=== PATIENT | male | born 1970 | race Two or more races ===

== ENCOUNTER 2020-06-27 08:40 | Outpatient (REF) | payer OTHER, SELFPAY ==
[2020-06-27 10:44] LABS: Alanine Aminotransferase 264 U/L (0-40); Alkaline Phosphatase 134 U/L (39-117); Anion Gap 13 (12-20); Aspartate Amino Transferase 232 U/L (5-37); Bilirubin Total 1.6 mg/dL (0.0-1.0); Blood Urea Nitrogen 13 mg/dL (9-16); Calcium 8.6 mg/dL (8.4-10.2); Carbon Dioxide 23 mmol/L (22-29); Chloride 106 mmol/L (96-108); Cholesterol 192 mg/dL; Estimated Glomerular Filt Rate > 60; Glucose Fasting 111 mg/dL (60-99); HDL Cholesterol 46 mg/dL; LDL Cholesterol Calculated 125 mg/dl; Sodium 138 mmol/L (135-145); Total Protein 7.2 g/dL (6.5-8.0); Triglycerides 106 mg/dL
== END 2020-06-27 08:41 | disposition home or self-care (01) ==
LOC: HO.LAB 08:40
PROVIDERS: PCP Internal Medicine; Visit Provider Internal Medicine
DX: E11.9 Type 2 diabetes mellitus without complications (principal); E78.00 Pure hypercholesterolemia, unspecified
CPT/HCPCS: 36415; 80053; 80061

== ENCOUNTER → 2020-07-12 12:24 | Outpatient (BNVA) | payer OTHER, SELFPAY | PROVIDERS: Visit Provider Orthopaedic Surgery | DX: Z76.89 Persons encountering health services in other specified circumstances (principal) | CPT/HCPCS: 20610; 99212; J1040 ==

== ENCOUNTER 2020-07-18 09:25 | Outpatient (REF) | payer OTHER, SELFPAY ==
--- NOTE | 2020-07-18 09:30 | XR_ITS ---
EXAMINATION: BILATERAL KNEE X-RAY CLINICAL INFORMATION: Pain COMPARISON: Previous right knee x-ray September 2019 TECHNIQUE: 4 views of each knee FINDINGS: Right: Bone alignment is normal. No fracture or dislocation is seen. There is joint space narrowing at the medial femoral tibial joint. There is joint space narrowing and osteophyte formation at the patellofemoral joint. There is a small osteophyte at the quadriceps tendon insertion to the patella. There is a small joint effusion. Left: Bone alignment is normal. No fracture or dislocation is seen. There is heterogeneous decreased attenuation seen in the lateral tibial plateau, lateral femoral condyle and question patella. This may represent demineralization/osteopenia. There is joint space narrowing and osteophyte formation at the patellofemoral and femoral tibial joints. There is osteophyte at the quadriceps tendon insertion to the patella. There is a small joint effusion. XR/XR knee RT 3V IMPRESSION: Bilateral arthritis, left greater than right, and small joint effusions. Heterogeneous decreased attenuation in the lateral left knee, question representing osteopenia.
--- NOTE | 2020-07-18 09:30 | US_ITS ---
EXAMINATION: US COMPLETE ABDOMEN WITH LIVER ELASTOGRAPHY CLINICAL INFORMATION: Elevated liver function tests COMPARISON: Previous abdominal ultrasound most recent March 2019 TECHNIQUE: Real-time imaging of the abdominal viscera. Noninvasive ultrasound liver fibrosis assessment is performed using Edie ElastPQ point quantification shear wave elastography (pSWE) with a 5 MHz transducer. Multiple elastography samples are obtained. FINDINGS: PANCREAS: Normal. The visualized pancreatic head and body are normal in appearance. The remainder of the pancreas is obscured from visualization by the overlying bowel gas. ABDOMINAL AORTA: The proximal, middle, and distal aortic segments are normal in caliber. INFERIOR VENA CAVA: Visualized portions are normal. LIVER: Liver echotexture is increased. The liver demonstrates normal size and contour. No focal lesion or intrahepatic biliary duct dilatation. The right lobe measures 14 cm in length. The left lobe measures 14 cm in length. The main portal vein is patent with appropriate hepatopedal flow Shear wave elastography provides a median stiffness of 1.4 m/s (reference: normal median stiffness is 0.81 - 1.22 m/s). The IQR/median stiffness to assess sampling precision is 0.2 (reference: optimal IQR/median stiffness is under 0.3). GALLBLADDER: The gallbladder is upper normal in size. There is ring down artifact suggestive of mild adenomyomatosis of the gallbladder wall. No gallstones are seen. COMMON BILE DUCT: Normal in caliber measuring 0.6 cm in diameter. RIGHT KIDNEY: Normal. No hydronephrosis. No renal calculi or focal parenchymal lesions. The kidney measures 12.4 cm in maximum dimension. LEFT KIDNEY: There is a small 4 x 5 x 5 mm cyst in the lower pole. No hydronephrosis. No renal calculi or focal parenchymal lesions. The kidney measures 12.5 cm in maximum dimension. SPLEEN: The spleen is slightly enlarged. The spleen measures 13.7 cm in maximum dimension. FREE FLUID: None. US/US abdomen comp w elastography IMPRESSION: 1. Impression: Echogenic liver probably representing fatty infiltration. Mild adenomyomatosis of the gallbladder wall. Small left renal cyst. Slightly enlarged spleen. 2. Elastography: Metavir score F2 to F3 suggestive of [id number] increased risk of developing liver fibrosis.
--- NOTE | 2020-07-18 09:30 | XR_ITS ---
EXAMINATION: BILATERAL KNEE X-RAY CLINICAL INFORMATION: Pain COMPARISON: Previous right knee x-ray September 2019 TECHNIQUE: 4 views of each knee FINDINGS: Right: Bone alignment is normal. No fracture or dislocation is seen. There is joint space narrowing at the medial femoral tibial joint. There is joint space narrowing and osteophyte formation at the patellofemoral joint. There is a small osteophyte at the quadriceps tendon insertion to the patella. There is a small joint effusion. Left: Bone alignment is normal. No fracture or dislocation is seen. There is heterogeneous decreased attenuation seen in the lateral tibial plateau, lateral femoral condyle and question patella. This may represent demineralization/osteopenia. There is joint space narrowing and osteophyte formation at the patellofemoral and femoral tibial joints. There is osteophyte at the quadriceps tendon insertion to the patella. There is a small joint effusion. XR/XR knee LT 3V IMPRESSION: Bilateral arthritis, left greater than right, and small joint effusions. Heterogeneous decreased attenuation in the lateral left knee, question representing osteopenia.
== END 2020-07-18 09:26 | disposition home or self-care (01) ==
LOC: HO.US 09:25
PROVIDERS: Visit Provider Internal Medicine
DX: R74.01 Elevation of levels of liver transaminase levels (principal); G89.29 Other chronic pain; M25.561 Pain in right knee; M25.562 Pain in left knee
CPT/HCPCS: 73562; 76705; 76981

== ENCOUNTER → 2020-08-31 15:04 | Outpatient (BNVA) | payer OTHER, SELFPAY | PROVIDERS: PCP Internal Medicine; Visit Provider Physician Assistant | DX: R74.01 Elevation of levels of liver transaminase levels (principal); K21.9 Gastro-esophageal reflux disease without esophagitis | CPT/HCPCS: 99212 ==

== ENCOUNTER 2020-12-01 07:49 | Outpatient (REF) | payer OTHER, SELFPAY ==
[2020-12-01 08:46] LABS: MANUAL DIFF FLAG NO
[2020-12-01 08:51] LABS: Basophils Percent Auto 0.4 % (0-2); Eosinophils Absolute Auto 0.2 X10*3/uL (0.0-0.4); Eosinophils Percent Auto 4.5 % (0-4); Hematocrit 40.1 % (42-52); Hemoglobin 13.3 g/dl (14.0-18.0); Imm Gran Abs Auto 0.01 X10*3/uL (0.00-0.03); Imm Gran Pct Auto 0.2 % (0.0-0.4); Lymphocytes Absolute Auto 1.7 X10*3/uL (1.2-4.9); Lymphocytes Percent Auto 36.3 % (20-40); Mean Corpuscular HGB Conc 33.2 g/dl (31.0-36.0); Mean Corpuscular Hemoglobin 30.5 pg (27.0-33.0); Mean Platelet Volume 10.1 fL (9.4-12.4); Monocytes Absolute Auto 0.5 X10*3/uL (0.1-1.2); Neutrophils Absolute Auto 2.3 X10*3/uL (2.0-8.3); Neutrophils Percent Auto 48.6 % (45-73); Platelet Count 134 X10*3/uL (160-400); Red Blood Count 4.36 X10*6/uL (4.60-5.80); Red Cell Distribution Width 12.5 % (11.0-16.0); White Blood Count 4.7 X10*3/uL (4.8-10.8)
[2020-12-01 09:14] LABS: Estimated Average Glucose 157 mg/dL; Hemoglobin A1c % 7.1 %
[2020-12-01 09:18] LABS: Alanine Aminotransferase 289 U/L (0-40); Albumin Level 3.6 g/dL (3.5-5.0); Alkaline Phosphatase 131 U/L (39-117); Anion Gap 13 (12-20); Aspartate Amino Transferase 235 U/L (5-37); Bilirubin Total 1.2 mg/dL (0.0-1.0); Blood Urea Nitrogen 12 mg/dL (9-16); Calcium 8.6 mg/dL (8.4-10.2); Carbon Dioxide 23 mmol/L (22-29); Chloride 106 mmol/L (96-108); Cholesterol 161 mg/dL; Estimated Glomerular Filt Rate > 60; Glucose Fasting 154 mg/dL (60-99); HDL Cholesterol 35 mg/dL; LDL Cholesterol Calculated 104 mg/dl; Potassium 3.9 mmol/L (3.3-5.1); Sodium 138 mmol/L (135-145); Total Protein 6.3 g/dL (6.5-8.0); Triglycerides 114 mg/dL
[2020-12-01 09:35] LABS: Creatinine Urine 183.31 mg/dL; Microalbum/Creatinine Ratio Ur 3.8 ug/mg cr
[2020-12-02 08:54] LABS: HBS Num1 0.05 mIU/mL (0-7.99); Hepatitis A Antibody IgM 0.35 Index (0-0.79); ~Hepatitis A Antibody IgM Nonreactive (Nonreactive); ~Hepatitis B Surface Antibody NONREACTIVE (Nonreactive)
[2020-12-02 09:05] LABS: HBc Num1 10.14 S/CO (0.00-0.79); HBsAGNum1 0.16 S/CO (0.00-0.99); Hepatitis B Surface Antigen Negative (Negative); ~HepC Num1 15.89 S/CO (0.00-0.79); ~Hepatitis C Antibody Reactive (Nonreactive)
[2020-12-02 10:15] LABS: HBc Num2 10.27 S/CO; HBc Num3 10.32 S/CO; Hepatitis B Core Antibody Reactive (Nonreactive)
[2020-12-03 14:31] LABS: HCV RNA PCR Qn 2220000 IU/mL (NOT DETECTED); HCV RNA PCR Qn 6.35 Log IU/mL (NOT DETECTED)
[2020-12-03 18:12] LABS: Hepatitis B Core Antibody IgM NON-REACTIVE (NON-REACTIVE)
[2020-12-04 23:46] LABS: Anti Nuclear Antibody Screen NEGATIVE (NEGATIVE)
[2020-12-05 13:52] LABS: Vitamin D 25-OH, D2 <4 ng/mL; Vitamin D 25-OH, D3 16 ng/mL; Vitamin D 25-OH, Total 16 ng/mL (30-100)
[2020-12-14 14:27] LABS: HCV Genotype LiPA 1a
== END 2020-12-01 07:50 | disposition home or self-care (01) ==
LOC: HO.LAB 07:49
PROVIDERS: Absent Provider Internal Medicine; PCP Internal Medicine; Visit Provider Physician Assistant
DX: R10.11 Right upper quadrant pain (principal); R74.01 Elevation of levels of liver transaminase levels; R78.89 Finding of other specified substances, not normally found in blood; B19.20 Unspecified viral hepatitis C without hepatic coma; E11.9 Type 2 diabetes mellitus without complications; E78.5 Hyperlipidemia, unspecified; E55.9 Vitamin D deficiency, unspecified
CPT/HCPCS: 36415; 80053; 80061; 82043; 82306; 83036; 85025; 86038; 86039; 86704; 86705; 86706; 86709; 86803; 87340; 87522; 87902

== ENCOUNTER → 2021-01-11 13:45 | Outpatient (BNVA) | payer OTHER, SELFPAY | PROVIDERS: Visit Provider Physician Assistant | CPT/HCPCS: Q3014 ==

== ENCOUNTER 2021-03-23 08:23 | Outpatient (REF) | payer OTHER, SELFPAY ==
--- NOTE | ~2021-03-23 | XR_ITS ---
EXAMINATION: XR KNEE AP STANDING CLINICAL INFORMATION: Knee pain. COMPARISON: Right knee 07/18/2020 TECHNIQUE: AP bilateral standing view of the knees was obtained. FINDINGS: There is significant reduction in medial compartment joint space both knees with mild periarticular spurring medial compartment right knee. Mild reduction in the lateral compartment joint space both knees is noted, as well. No bony erosive changes. The soft tissues are normal. XR/XR knee standing BI IMPRESSION: Moderate degenerative changes medial compartment both knees with mild periarticular spurring medial compartment right knee.
== END 2021-03-23 08:24 | disposition home or self-care (01) ==
LOC: HO.HOSX 08:23
PROVIDERS: Visit Provider Orthopaedic Surgery
DX: M17.0 Bilateral primary osteoarthritis of knee (principal); E11.9 Type 2 diabetes mellitus without complications; B19.20 Unspecified viral hepatitis C without hepatic coma
CPT/HCPCS: 20610; 73565; 99212; J1100

== ENCOUNTER → 2021-07-27 12:39 | Outpatient (BNVA) | payer OTHER, MEDICAID, SELFPAY | PROVIDERS: PCP Internal Medicine; Visit Provider Orthopaedic Surgery | DX: M17.0 Bilateral primary osteoarthritis of knee (principal); E11.9 Type 2 diabetes mellitus without complications | CPT/HCPCS: 20610; 99212; J1100 ==

== ENCOUNTER → 2021-12-01 11:08 | Outpatient (BNVA) | payer OTHER, SELFPAY | PROVIDERS: PCP Internal Medicine; Visit Provider Orthopaedic Surgery | DX: M17.0 Bilateral primary osteoarthritis of knee (principal); E11.9 Type 2 diabetes mellitus without complications | CPT/HCPCS: 20610; 99212; J1100 ==

== ENCOUNTER → 2022-02-01 14:52 | Outpatient (BNVA) | payer OTHER, SELFPAY | PROVIDERS: PCP Internal Medicine; Visit Provider Orthopaedic Surgery | DX: M17.0 Bilateral primary osteoarthritis of knee (principal); E11.9 Type 2 diabetes mellitus without complications | CPT/HCPCS: 99212 ==

== ENCOUNTER → 2022-03-01 12:22 | Outpatient (BNVA) | payer OTHER, SELFPAY | PROVIDERS: PCP Internal Medicine; Visit Provider Orthopaedic Surgery | DX: M17.0 Bilateral primary osteoarthritis of knee (principal) | CPT/HCPCS: 20610; 99212; J7318 ==

== ENCOUNTER → 2022-04-16 07:20 | Outpatient (BNVA) | payer OTHER, SELFPAY | PROVIDERS: PCP Internal Medicine; Referring Provider Internal Medicine; Visit Provider Physician Assistant | DX: B19.20 Unspecified viral hepatitis C without hepatic coma (principal); K21.9 Gastro-esophageal reflux disease without esophagitis | CPT/HCPCS: 99212 ==

== ENCOUNTER 2022-04-28 07:35 | Outpatient (REF) | payer OTHER, SELFPAY ==
[2022-04-28 07:56] LABS: MANUAL DIFF FLAG NO
[2022-04-28 08:16] LABS: Basophils Percent Auto 0.4 % (0-2); Eosinophils Absolute Auto 0.2 X10*3/uL (0.0-0.4); Eosinophils Percent Auto 3.7 % (0-4); Hematocrit 37.5 % (42.0-52.0); Imm Gran Abs Auto 0.01 X10*3/uL (0.00-0.03); Imm Gran Pct Auto 0.2 % (0.0-0.4); Lymphocytes Absolute Auto 1.9 X10*3/uL (1.2-4.9); Lymphocytes Percent Auto 37.5 % (20-40); Mean Corpuscular HGB Conc 34.7 g/dl (31.0-36.0); Mean Corpuscular Volume 89.3 fL (80.0-98.0); Mean Platelet Volume 9.9 fL (9.4-12.4); Monocytes Absolute Auto 0.4 X10*3/uL (0.1-1.2); Monocytes Percent Auto 7.5 % (2-11); Neutrophils Absolute Auto 2.5 x10*3/uL (2.0-8.3); Neutrophils Percent Auto 50.7 % (45-73); Platelet Count 105 X10*3/uL (160-400); Red Cell Distribution Width 12.8 % (11.0-16.0); White Blood Count 4.9 X10*3/uL (4.8-10.8)
[2022-04-28 08:49] LABS: Alanine Aminotransferase 99 U/L (0-40); Albumin Level 3.6 g/dL (3.5-5.0); Alkaline Phosphatase 156 U/L (39-117); Anion Gap 14 (12-20); Aspartate Amino Transferase 100 U/L (5-37); Bilirubin Direct 0.7 mg/dL (0.0-0.5); Bilirubin Total 1.2 mg/dL (0.0-1.0); Blood Urea Nitrogen 11 mg/dL (9-16); Calcium 8.7 mg/dL (8.4-10.2); Carbon Dioxide 22 mmol/L (22-29); Chloride 109 mmol/L (96-108); Cholesterol 167 mg/dL; Estimated Glomerular Filt Rate > 60; Glucose Fasting 137 mg/dL (60-99); HDL Cholesterol 37 mg/dL; Iron 70 mcg/dL (45-160); LDL Cholesterol Calculated 113 mg/dl; Percent Iron Saturation 21 % (15-50); Potassium 3.9 mmol/L (3.3-5.1); Sodium 141 mmol/L (135-145); Total Iron Binding Capacity 341 mcg/dL (228-428); Total Protein 6.5 g/dL (6.5-8.0); Triglycerides 87 mg/dL; Unsaturated Iron Binding 271 ug/dL
[2022-04-28 09:08] LABS: Vitamin D 25-OH Total 13.7 ng/mL (>30)
[2022-04-28 09:12] LABS: Thyroid Stimulating Hormone 1.36 uIU/mL (0.32-4.0)
[2022-04-28 09:37] LABS: Creatinine Urine 137.33 mg/dL; Microalbum/Creatinine Ratio Ur 10.1 ug/mg cr
[2022-04-30 05:07] LABS: HBS Num1 0.12 mIU/mL (0-7.99); HIV AB/AG Nonreactive (Nonreactive); HIV Num 1 0.08 S/CO (0.00-0.99); ~Hepatitis B Surface Antibody NONREACTIVE (Nonreactive)
[2022-05-03 13:21] LABS: Vitamin D 25-OH, D2 <4 ng/mL; Vitamin D 25-OH, D3 16 ng/mL; Vitamin D 25-OH, Total 16 ng/mL (30-100)
[2022-05-03 14:16] LABS: HCV Log PCR 5.52 Log IU/mL (NOT DETECTED); HepC Viral Load 329000 IU/mL (NOT DETECTED)
[2022-05-04 16:57] LABS: Hepatitis C Genotype 1a
[2022-05-05 18:03] LABS: FIB-ALT 85 U/L (9-46); FIB-Alpha-2-Macroglobulin 269 mg/dL (106-279); FIB-Apolipoprotein A1 131 mg/dL (94-176); FIB-GGT 311 U/L (3-95); FIB-Haptoglobin 15 mg/dL (43-212); FIB-Total Bilirubin 0.9 mg/dL (0.2-1.2); Liver Fibrosis Score 0.91; Liver Fibrosis Stage F4; Nec Inflam Act Grade A3; Nec Inflam Act Score 0.72
== END 2022-04-28 07:36 | disposition home or self-care (01) ==
LOC: HO.LAB 07:35
PROVIDERS: Absent Provider Internal Medicine; PCP Internal Medicine; Visit Provider Physician Assistant
DX: Z11.4 Encounter for screening for human immunodeficiency virus [HIV] (principal); R10.11 Right upper quadrant pain; B19.20 Unspecified viral hepatitis C without hepatic coma; K59.09 Other constipation; K52.9 Noninfective gastroenteritis and colitis, unspecified; R74.01 Elevation of levels of liver transaminase levels; D64.9 Anemia, unspecified; E11.9 Type 2 diabetes mellitus without complications; E78.5 Hyperlipidemia, unspecified; E55.9 Vitamin D deficiency, unspecified
CPT/HCPCS: 36415; 80053; 80061; 80076; 81596; 82043; 82306; 83540; 84443; 85025; 86706; 87389; 87522; 87902

== ENCOUNTER → 2022-04-30 08:12 | Outpatient (BNVA) | payer OTHER, SELFPAY | PROVIDERS: PCP Internal Medicine; Referring Provider Internal Medicine | DX: Z11.0 Encounter for screening for intestinal infectious diseases (principal) | CPT/HCPCS: 99211 ==

== ENCOUNTER 2022-04-30 16:20 | Outpatient (REF) | payer OTHER, SELFPAY ==
[2022-05-02 12:48] LABS: H Pylori Breath Test Negative (Negative)
== END 2022-04-30 16:21 | disposition home or self-care (01) ==
LOC: HO.LNP 16:20
PROVIDERS: Visit Provider Physician Assistant
DX: A04.8 Other specified bacterial intestinal infections (principal)
CPT/HCPCS: 83013

== ENCOUNTER → 2022-05-14 09:58 | Outpatient (BNVA) | payer OTHER, SELFPAY | PROVIDERS: PCP Internal Medicine; Visit Provider Physician Assistant | DX: K21.9 Gastro-esophageal reflux disease without esophagitis (principal); B19.20 Unspecified viral hepatitis C without hepatic coma; R74.01 Elevation of levels of liver transaminase levels; D64.9 Anemia, unspecified | CPT/HCPCS: 99212 ==

== ENCOUNTER 2022-06-01 10:09 | Outpatient (REF) | payer OTHER, SELFPAY ==
--- NOTE | ~2022-06-01 | US_ITS ---
EXAMINATION: US ABDOMEN COMPLETE CLINICAL INFORMATION: Unspecified viral hepatitis C without hepatic coma. COMPARISON: Ultrasound abdomen complete dated 07/05/2016. CT abdomen and pelvis without contrast dated 09/08/2012. TECHNIQUE: Real-time imaging of the abdominal viscera. FINDINGS: PANCREAS: Obscured by bowel gas. ABDOMINAL AORTA: The proximal, mid, and distal segments are normal in caliber. INFERIOR VENA CAVA: Visualized portions are normal. LIVER: The liver is normal in size. The liver contour is normal. Coarse hepatic echotexture which can be seen in the setting of underlying liver disease. No focal hepatic lesion. There is no intrahepatic biliary duct dilatation seen. GALLBLADDER: Gallbladder is distended somewhat greater than expected. Negative sonographic Ortega sign. No without evidence of stones, sludge, polyps, or pericholecystic fluid. Question of a borderline gallbladder wall thickening which may be related to underlying liver disease. COMMON BILE DUCT: Normal in caliber measuring 0.6 cm in diameter. RIGHT KIDNEY: Possible trace right upper pole pelviectasis. No hydronephrosis. No renal calculi or focal parenchymal lesions. The kidney measures 12.0 cm in maximum dimension. LEFT KIDNEY: Normal. No hydronephrosis. No renal calculi or focal parenchymal lesions. The kidney measures 12.4 cm in maximum dimension. SPLEEN: Spleen is enlarged. The spleen measures 16.4 cm in maximum dimension. FREE FLUID: None. US/US abdomen complete IMPRESSION: Gallbladder is distended somewhat greater than expected however with no cholelithiasis or sonographic Ortega's tenderness. If patient has clinical symptoms, gallbladder hydrops could have this appearance however if patient is asymptomatic this may be related to the fasting state. Questionable borderline gallbladder wall thickening which may be related to underlying liver disease. Coarse hepatic echotexture which could be seen in the setting of underlying liver disease. No liver lesion. Possible trace right upper pole renal pelviectasis. Splenomegaly.
== END 2022-06-01 10:10 | disposition home or self-care (01) ==
LOC: HO.US 10:09
PROVIDERS: Visit Provider Physician Assistant
DX: B19.20 Unspecified viral hepatitis C without hepatic coma (principal)
CPT/HCPCS: 76700

== ENCOUNTER → 2022-06-11 13:00 | Outpatient (BNVA) | payer OTHER, SELFPAY | PROVIDERS: PCP Internal Medicine; Visit Provider Orthopaedic Surgery | DX: M17.0 Bilateral primary osteoarthritis of knee (principal); E11.9 Type 2 diabetes mellitus without complications | CPT/HCPCS: 20610; 99212; J1100 ==

== ENCOUNTER → 2022-07-26 08:05 | Outpatient (BNVA) | payer OTHER, SELFPAY | PROVIDERS: PCP Internal Medicine; Visit Provider Physician Assistant | DX: K58.9 Irritable bowel syndrome, unspecified (principal); K21.9 Gastro-esophageal reflux disease without esophagitis; R74.01 Elevation of levels of liver transaminase levels; D64.9 Anemia, unspecified; B19.20 Unspecified viral hepatitis C without hepatic coma | CPT/HCPCS: 99212 ==

== ENCOUNTER → 2022-09-14 09:59 | Outpatient (BNVA) | payer OTHER, SELFPAY | PROVIDERS: PCP Internal Medicine; Visit Provider Orthopaedic Surgery | DX: M17.0 Bilateral primary osteoarthritis of knee (principal) | CPT/HCPCS: 20610; 99212; J7318 ==

== ENCOUNTER → 2022-10-04 10:50 | Outpatient (BNVA) | payer OTHER, SELFPAY | PROVIDERS: PCP Internal Medicine; Referring Provider Internal Medicine; Visit Provider Physician Assistant | DX: B19.20 Unspecified viral hepatitis C without hepatic coma (principal); K21.9 Gastro-esophageal reflux disease without esophagitis; E11.9 Type 2 diabetes mellitus without complications | CPT/HCPCS: 99212 ==

== ENCOUNTER 2022-10-08 17:36 | Inpatient (IN) | payer OTHER, SELFPAY ==
--- NOTE | ~2022-10-08 | US_ITS ---
EXAMINATION: US GUIDED PARACENTESIS CLINICAL INFORMATION: Ascites COMPARISON: Previous CT of the abdomen and pelvis from yesterday. TECHNIQUE: Procedure and risks and benefits including bleeding, infection and low blood pressure were discussed with the patient and informed consent was obtained. The right lower quadrant was prepped and draped in usual sterile fashion. The skin and soft tissues were anesthetized with 1% lidocaine plain. Using ultrasound guidance and a 5-Serbian One-Step system, access to the ascitic fluid was obtained. 1.8 L of clear yellow fluid was removed. Patient complained of pain and procedure was continued. Diagnostic specimen was sent. FINDINGS: There is a large amount of ascites. US/US paracentesis abd w/image IMPRESSION: Ultrasound-guided paracentesis.
--- NOTE | ~2022-10-08 | US_ITS ---
EXAMINATION: ULTRASOUND-GUIDED PARACENTESIS CLINICAL INDICATION: Ascites. COMPARISON: CT of the abdomen and pelvis 10/08/2022. TECHNIQUE: Following explaining ultrasound-guided paracentesis procedure, benefits and risk, a written consent was obtained. Patient was placed supine and preliminary ultrasound imaging was obtained through the abdomen. An optimal site was selected along the left lower quadrant and marked on the skin by a marker. The marked site was cleaned and draped in the usual sterile manner with chlorhexidine solution. 1% lidocaine was inserted at puncture site. Through a small skin incision a 5 Telugu [employer] catheter was advanced into the peritoneal fluid. After observing fluid return, stylet was withdrawn and catheter connected to vacuum bottle via connecting cannula. After obtaining all fluid and observing normal fluid return, catheter was withdrawn and complete hemostasis was achieved at puncture site. Patient tolerated procedure extremely well. IR nursing and radiologist monitored the patient. FINDINGS: On preliminary ultrasound imaging there is a large amount of fluid more so on the left than right. Patient had a previous ultrasound-guided paracentesis a day earlier on the right side. Approximately 4.1 L of clear yellowish fluid was removed. None of this fluid was sent to lab. US/US paracentesis abd w/image IMPRESSION: Successful ultrasound-guided therapeutic paracentesis performed.
--- NOTE | ~2022-10-08 | CT_ITS ---
EXAMINATION: CT ABDOMEN AND PELVIS WITHOUT CONTRAST CLINICAL INFORMATION: Abdominal pain, distention and rectal bleeding. COMPARISON: None available. TECHNIQUE: Multidetector volumetric imaging was performed from the superior aspect of the liver through the pubic symphysis. Sagittal and coronal reformatted images were obtained on the technologist's workstation. This CT examination was performed using dose optimization techniques as appropriate, variously including the following: *Automated exposure control *Adjustment of mA and/or kV according to patient size (this includes techniques or standardized protocols for targeted exams where dose is matched to indication/reason for exam; i.e. extremities or head) *Use of iterative reconstruction technique DLP: 908 mGy-cm FINDINGS: LUNG BASES: There is left basilar infiltrate/atelectasis with small left pleural effusion. The heart size is normal. The right lung base is clear. LIVER, GALLBLADDER, AND BILIARY TREE: The liver is small in size slightly lobulated surface with heterogeneity. No focal lesion or intrahepatic ductal dilatation seen. There is moderate perihepatic fluid collection. The gallbladder is contracted with mild bladder wall thickening likely secondary to ascites. PANCREAS: Unremarkable. SPLEEN: Unremarkable. ADRENAL GLANDS: Unremarkable. KIDNEYS AND URETERS: The kidneys are normal in size, shape, and attenuation. There are punctate calcifications in bilateral kidneys. No evidence of hydronephrosis. No perinephric stranding. BLADDER: Unremarkable. GASTROINTESTINAL TRACT: There is scattered stool and gas in colon without distention. The small bowel loops are normal caliber. The stomach is nondistended. There is diffuse ascites. No free fluid seen. ABDOMINAL WALL: No significant hernia is appreciated. LYMPH NODES: Small shotty lymph nodes are seen in the retroperitoneum measuring around 1 cm. Small pavel hepatis 1.4 cm lymph nodes seen. VASCULAR: Unremarkable. PELVIC VISCERA: The bladder is nondistended. There is no bladder wall thickening. A 1.8 cm hypodensity seen in the prostate gland likely cyst central gland cyst punctate calcification is seen as well. OSSEOUS STRUCTURES: Moderate ventral osteophytes with calcification of anterior longitudinal ligament mid, lower dorsal and upper lumbar spine is noted. No aggressive lytic or sclerotic process. CT/CT abdomen pelvis wo IV con IMPRESSION: Findings strongly suggestive of cirrhosis with diffuse ascites. Prominent collateral vessels are seen in the splenic hilum. The ascites can be drained for relief of abdominal pressure/pain. There are nonspecific small retroperitoneal and pavel hepatis lymph nodes. Left lower lobe consolidation/atelectasis with small left pleural effusion. Fleischner guidelines were followed.
[2022-10-08 17:42] VITALS: BP 155/86; PULSE 114; RESP 20; TEMP 36.8; O2SAT 97; BMI 32.9
--- NOTE | 2022-10-08 17:43 | ED.GENADULT ---
HPI - General Adult General Chief complaint: Abdominal Pain <JORDAN Valadez - Last Filed: 10/08/22 17:49> Stated complaint: hypertension <JORDAN Valadez - Last Filed: 10/08/22 17:49> Time Seen by Provider: 10/08/22 18:35 <JORDAN Valadez - Last Filed: 10/08/22 17:49> Source: patient, RN notes reviewed, old records reviewed and spanish medical interpreter <Shravan Boykin - Last Filed: 10/08/22 22:01> Mode of arrival: EMS <Shravan Boykin - Last Filed: 10/08/22 22:01> Limitations: language barrier <Shravan Boykin - Last Filed: 10/08/22 22:01> History of Present Illness HPI narrative: 52-year-old primarily Tajik-speaking male with past medical history significant for hypertension, hepatitis C, diabetes, hyperlipidemia, remote history of substance abuse presents for evaluation of abdominal pain. Patient reports 2 weeks of significant generalized abdominal pain but worse in the upper region He reports he has also had bright red blood per rectum in the last 2 weeks with almost every bowel movement Denies any black or dark stool Patient reports a history of hemorrhoids He reports he is due for a colonoscopy on November 01 He reports his pain is 10/10 pain Denies any fevers, chills No other complaints or concerns at this time Patient reports thus far his hepatitis-C has been untreated <Shravan Boykin - Last Filed: 10/08/22 22:01> Related Data Home medications: Home Medications Medication Instructions Recorded Confirmed prazosin 5 mg capsule 5 mg PO BEDTIME 03/22/20 10/04/22 pen needle, diabetic 31 gauge x #50 ea 06/29/20 10/04/22 3/16 buprenorphine HCl 8 mg sublingual 8 mg sublingual DAILY 08/31/20 10/04/22 tablet quetiapine 100 mg tablet (Seroquel) 100 mg PO BEDTIME 08/31/20 10/04/22 clonazepam 0.5 mg tablet 0.5 mg PO DAILY PRN 08/15/21 10/04/22 quetiapine 50 mg tablet 0 mg PO 08/15/21 10/04/22 Previous Rx's Medication Instructions Recorded alcohol swabs (Alcohol Pads) 1 pad topical DIRECTED 30 days 04/12/20 #100 ea blood sugar diagnostic (FreeStyle #100 ea 04/12/20 Lite Strips) lancets 28 gauge (FreeStyle #100 ea 04/12/20 Lancets) prazosin 2 mg capsule 2 mg PO BID #60 caps 09/15/20 gabapentin 300 mg capsule 300 mg PO TID 30 days #90 caps 02/06/21 metformin 500 mg tablet 500 mg PO BID 90 days #180 tabs 04/06/21 trazodone 100 mg tablet 100 mg PO BEDTIME 90 days #90 tabs 04/06/21 furosemide 20 mg tablet 20 mg PO DAILY 30 days #30 tabs 07/04/21 blood-glucose meter (FreeStyle #1 ea 08/11/21 [place] kit) blood-glucose meter (OneTouch #1 ea 08/15/21 Ultra2 Meter kit) lancets (OneTouch UltraSoft #100 ea 08/15/21 Lancets) cyclobenzaprine 10 mg tablet 10 mg PO BEDTIME 30 days #30 tabs 12/21/21 hydrocortisone 1 % topical cream 1 appl topical TID PRN skin 12/21/21 (Anti-Itch (hydrocortisone)) irritation 2 weeks #28.4 grams insulin glargine 100 unit/mL 35 unit (0.35 mL) subcut QPM 90 12/21/21 subcutaneous solution (Lant #31.5 mL U-100 Insulin) escitalopram oxalate 20 mg tablet 20 mg PO DAILY #90 tabs 02/10/22 cholecalciferol (vitamin D3) 50 50 mcg PO DAILY 90 days #90 caps 05/04/22 mcg (2,000 unit) capsule benztropine 1 mg tablet 1 mg PO BID 30 days #60 tabs 05/10/22 losartan 100 mg tablet 100 mg PO DAILY 90 days #90 tabs 05/10/22 bisacodyl 5 mg tablet,delayed 10 mg PO ONCE colonoscopy prep 1 05/14/22 release (Dulcolax (bisacodyl)) day #2 tabs omeprazole 20 mg capsule,delayed 20 mg PO BID 90 days #180 caps 05/14/22 release Shower Chair #1 ea 05/22/22 handheld shower #1 ea 05/22/22 nonslip shower mat #1 ea 05/22/22 simvastatin 40 mg tablet 40 mg PO BEDTIME 90 days #90 tabs 05/22/22 blood sugar diagnostic (OneTouch #100 ea 08/05/22 Ultra Test strips) ibuprofen 800 mg tablet 800 mg PO TID #90 tabs 09/18/22 clotrimazole-betamethasone 1 1 appl topical BID 2 weeks #45 09/19/22 %-0.05 % topical cream grams insulin syringe-needle U-100 0.5 #100 ea 09/19/22 mL 31 gauge x 5/16 (BD Insulin Syringe Ultra-Fine) lidocaine 5 % topical patch 1 patch topical DAILY 30 days #30 09/19/22 ea semaglutide 0.25 mg or 0.5 mg (2 0.25 mg (0.4 mL) subcut QWEEK 90 09/19/22 mg/3 mL) subcutaneous pen injector days #5.2 mL (Ozempic) varenicline 0.5 mg tablet 0.5 mg PO BID 30 days #60 tabs 10/07/22 <JORDAN Valadez - Last Filed: 10/08/22 17:49> Allergies/adverse reactions: Allergies Allergy/AdvReac Type Severity Reaction Status Date / Time lisinopril AdvReac Intermediate Headache Verified 10/04/22 11:03 varenicline AdvReac Intermediate suicidal Verified 10/04/22 11:03 ideation <JORDAN Valadez - Last Filed: 10/08/22 17:49> Review of Systems Constitutional: Constitutional: Reports as per HPI, Denies chills, Denies fatigue, Denies fever(s) and Denies headache(s) <Shravan Boykin - Last Filed: 10/08/22 22:01> ENT: Denies headache(s) <Shravan Boykin - Last Filed: 10/08/22 22:01> Cardiovascular: Cardiovascular: Denies chest pain <Shravan Boykin - Last Filed: 10/08/22 22:01> Respiratory: Respiratory: Denies cough <Shravan Boykin - Last Filed: 10/08/22 22:01> Gastrointestinal: Gastrointestinal: Reports abdominal pain, Denies melena, Reports hematochezia, Denies constipation and Denies vomiting <Shravan Boykin - Last Filed: 10/08/22 22:01> Genitourinary: Genitourinary: Denies difficulty urinating and Denies dysuria <Shravan Boykin - Last Filed: 10/08/22 22:01> Neurologic: Denies headache(s) and Denies focal weakness <Shravan Boykin - Last Filed: 10/08/22 22:01> Endocrine: Endocrine: Denies fatigue <Shravan Boykin - Last Filed: 10/08/22 22:01> [facility] Past Medical History Medical History: Medical History Acid reflux Bipolar disorder Diabetes mellitus Essential hypertension History of substance abuse Left knee pain Moderate recurrent major depression Pure hypercholesterolemia Right knee pain Transaminitis <JORDAN Valadez - Last Filed: 10/08/22 17:49> Surgical History: Surgical History No pertinent past surgical history <JORDAN Valadez - Last Filed: 10/08/22 17:49> Family History Family History: Family History Father CVD (cardiovascular disease) Diabetes Maternal Grandmother Diabetes Brother Respiratory failure Asthma Sister No problems noted. Daughter No problems noted. Family/Other Mental health disorder <JORDAN Valadez - Last Filed: 10/08/22 17:49> Social History Social History: Social History Household Members: Significant Other Housing: Apartment Alcohol intake: former Patient Tobacco Use Status: Current everyday Tobacco user Tobacco use type: Cigarette Cigarettes Per Day: 10 Years Smoked: 40 e-Cigarette/Vaping Use: Never Used Second Hand Smoke Exposure: No Advance Directives: No Advance Directives Information Provided: No service: No Current occupational status: unemployed Current occupation: Right Handed Cognitive needs: Yes Hearing needs: No Vision needs: No <JORDAN Valadez - Last Filed: 10/08/22 17:49> Physical Exam ED Vital Signs: Vital Signs - 24 hr 10/08/22 17:42 10/08/22 19:53 10/08/22 20:09 Temperature 98.2 F 98.0 F 98.1 F Pulse Rate 114 H 87 82 Respiratory Rate 20 18 15 Blood Pressure 155/86 H 122/78 133/74 Pulse Oximetry 97 Oxygen Delivery Method Room Air BMI result Body Mass Index 32.9 <JORDAN Valadez - Last Filed: 10/08/22 17:49> Vital Signs - 24 hr 10/08/22 17:42 10/08/22 19:53 10/08/22 20:09 Temperature 98.2 F 98.0 F 98.1 F Pulse Rate 114 H 87 82 Respiratory Rate 20 18 15 Blood Pressure 155/86 H 122/78 133/74 Pulse Oximetry 97 Oxygen Delivery Method Room Air BMI result Body Mass Index 32.9 <Shravan Boykin - Last Filed: 10/08/22 22:01> Const General: healthy appearing, comfortable, no acute distress, alert and awake <Shravan Boykin - Last Filed: 10/08/22 22:01> Nutritional Appearance: well nourished <Shravan Boykin - Last Filed: 10/08/22 22:01> Orientation/consciousness: patient oriented x3 <Shravan Boykin - Last Filed: 10/08/22 22:01> HENMT Head: Yes normocephalic and Yes atraumatic <Shravan OColfax - Last Filed: 10/08/22 22:01> Throat: Yes posterior oropharynx normal <Shravan Boykin - Last Filed: 10/08/22 22:01> Eyes Eyelids: Yes eyelids normal <Shravan Boykin - Last Filed: 10/08/22 22:01> Conjunctivae: conjunctivae normal <Shravan Boykin - Last Filed: 10/08/22 22:01> Sclerae: sclerae normal <Shravan OColfax - Last Filed: 10/08/22 22:01> Corneas: corneas normal <Shravan Noely - Last Filed: 10/08/22 22:01> Pupils: Equal, round and reactive pupils present <Shravan Boykin - Last Filed: 10/08/22 22:01> EOM: EOMs intact bilaterally <Shravan Boykin - Last Filed: 10/08/22 22:> Neck Neck: Yes full ROM <Shravan OMarcus - Last Filed: 10/08/22 22:01> Resp Effort & Inspection: normal respiratory effort, able to speak in complete sentences, no audible wheezes and not labored <Shravan OMarcus - Last Filed: 10/08/22 22:01> Auscultation: clear to auscultation bilaterally <Shravan OColfax - Last Filed: 10/08/22 22:> Cardio Rate: regular rate <Shravan Alba Last Filed: 10/08/22 22:01> Rhythm: regular rhythm <Shravan Alba Last Filed: 10/08/22 22:> GI Inspection: Yes distended <Shravan OMarcus - Last Filed: 10/08/22 22:> Palpation (GI): not soft, Firmness to palpation present (GI), Tenderness to palpation present (GI) (Diffusely tender to palpation), Guarding due to palpation present (GI) in the LUQ and in the RUQ and Rigid due to palpation <Shravan O Last Filed: 10/08/22 22:01> Auscultation: normoactive bowel sounds <Shravan O Last Filed: 10/08/22 22:01> Rectal Exam - Male: Yes normal sphincter tone, Yes heme negative stool and Yes External hemorrhoid(s) present <Shravan O Last Filed: 10/08/22 22:01> Skin General skin exam: no rashes or lesions noted and elasticity normal <Shravan OColfax - Last Filed: 10/08/22 22:01> Neuro General: patient oriented x3 <Shravan O Last Filed: 10/08/22 22:01> Cranial nerves: Yes CN's II-XII intact bilaterally, Yes Equal, round and reactive pupils present and Yes Bilaterally intact EOM present <Shravan OMarcus - Last Filed: 10/08/22 22:01> Cognition (Neuro): normal cognition <Shravan O Last Filed: 10/08/22 22:01> Extrem Other: Moving all extremities well without any obvious deformities <Shravan Boykin - Last Filed: 10/08/22 22:01> Course Course Course Narrative: RME - 52yo romanian-speaking male with history of DM2, bipolar disorder, hepatitis C, presenting by EMS for evaluation of bright red blood in his stool that started 2 weeks ago and is present during every BM. Patient stated he is having diffuse abdominal pain and pressure with associated vomiting. Diaphoretic on presentation, tachycardic with BP 155/86. Abdomen is firm with decreased BS. BLE edema present Plan: CT abd, labs <JORDAN Valadez - Last Filed: 10/08/22 17:49> Reevaluation(s) Reevaluation #1: CT scan confirmed a significant amount of ascites. Given the patient's abdominal firmness, tenderness to exam. Discussed with hospitalist, Dr. King who requested at least a diagnostic paracentesis to rule out SBP. I discussed with the patient informed consent was obtained. See procedure note. I drained 30 cc of clear, yellow ascites fluid. Fluid was sent for lab testing. The patient will be admitted for symptomatic anemia <Shravan Boykin - Last Filed: 10/08/22 22:01> Time: 21:33 <Shravan Boykin - Last Filed: 10/08/22 22:01> Medications Administered Discontinued Medications Generic Name Dose Route Start Last Admin Trade Name Freq PRN Reason Stop Dose Admin Morphine Sulfate 4 mg 10/08/22 18:52 10/08/22 19:07 Morphine Sulfate 4 Mg/Ml Cartridge IVPUSH 10/08/22 18:53 4 mg ONCE ONE Administration Protocol Ondansetron HCl 4 mg 10/08/22 18:52 10/08/22 19:07 Ondansetron Hcl 4 Mg/2 Ml Vial IVPUSH 10/08/22 18:53 4 mg ONCE ONE Administration <JORDAN Valadez - Last Filed: 10/08/22 17:49> Medications Administered Discontinued Medications Generic Name Dose Route Start Last Admin Trade Name Freq PRN Reason Stop Dose Admin Morphine Sulfate 4 mg 10/08/22 18:52 10/08/22 19:07 Morphine Sulfate 4 Mg/Ml Cartridge IVPUSH 10/08/22 18:53 4 mg ONCE ONE Administration Protocol Ondansetron HCl 4 mg 10/08/22 18:52 10/08/22 19:07 Ondansetron Hcl 4 Mg/2 Ml Vial IVPUSH 10/08/22 18:53 4 mg ONCE ONE Administration <Shravan Noely - Last Filed: 10/08/22 22:01> Procedures Paracentesis Time Out Performed: Yes <Shravan WillisColfax - Last Filed: 10/08/22 22:01> Indication: possible spontaneous bacterial peritonitis <Shravan OColfax - Last Filed: 10/08/22 22:01> Procedure: diagnostic paracentesis <Shravan OColfax - Last Filed: 10/08/22 22:01> Location: [facility] <Shravan O - Last Filed: 10/08/22 22:01> Local Anesthetic: lidocaine 1% <Shravan Alba - Last Filed: 10/08/22 22:01> Amount of anesthesia used (mL): 5 <Shravan O - Last Filed: 10/08/22 22:01> Bedside Ultrasound Used: yes, Ascites confirmed and location marked <Shravan OMarcus - Last Filed: 10/08/22 22:01> Preparation: sterile prep and drape <Shravan OMarcus - Last Filed: 10/08/22 22:01> Amount of fluid obtained (mL): 30 <Shravan OColfax - Last Filed: 10/08/22 22:01> Fluid: clear <Shravan OColfax - Last Filed: 10/08/22 22:01> Size of Needle Used: 18 <Shravan OMarcus - Last Filed: 10/08/22 22:01> Post Procedure Exam: awake, alert, normal BP, normal HR and normal SpO2 <Shravan AlbaColfax - Last Filed: 10/08/22 22:01> Patient Tolerated Procedure: well <Shravan AlbaColfax - Last Filed: 10/08/22 22:01> Complications: none <Shravan AlbaColfax - Last Filed: 10/08/22 22:01> Medical Decision Making Medical Decision Making MDM Narrative: 52-year-old male past medical history significant for diabetes, hepatitis C presenting for evaluation of abdominal pain with bright red blood per rectum. He has a critical hemoglobin of 7.0 which represents a significant drop from his last H&H in April of 2022. He agreed to blood transfusion. His rectal exam was actually heme negative at this time. A CT scan of the abdomen pelvis is pending. The patient is due for colonoscopy in less than 1 month. Plan will likely be to admit the patient for colonoscopy/endoscopy. CT scan pending. There is still some concern for SBP given his significant abdominal pain with distention. Awaiting CT scan results <Shravan Boykin - Last Filed: 10/08/22 22:01> Differential Diagnosis Lower GI bleed External hemorrhoid Internal hemorrhoid Abdominal pain Ascites Gastric perforation Peptic ulcer disease <Shravan Boykin - Last Filed: 10/08/22 22:01> Lab Data Result Diagrams: 10/08/22 18:09 10/08/22 18:09 <JORDAN Valadez - Last Filed: 10/08/22 17:49> Labs: Lab Results 10/08/22 10/08/22 10/08/22 Range/Units 18:09 18:09 18:09 WBC 6.1 (4.8-10.8) X10*3/uL RBC 2.35 L D (4.60-5.80) X10*6/uL Hgb 7.0 L* D (14.0-18.0) g/dl Hct 21.3 L D (42.0-52.0) % MCV 90.6 (80.0-98.0) fL MCH 29.8 (27.0-33.0) pg MCHC 32.9 (31.0-36.0) g/dl RDW 14.6 (11.0-16.0) % Plt Count 179 D (160-400) X10*3/uL MPV 9.0 L (9.4-12.4) fL Immature Gran % (Auto) 0.2 (0.0-0.4) % Neut % (Auto) 57.8 (45-73) % Lymph % (Auto) 31.7 (20-40) % [place] % (Auto) 8.0 (2-11) % Eos % (Auto) 2.1 (0-4) % Baso % (Auto) 0.2 (0-2) % Lymph # (Auto) 1.9 (1.2-4.9) X10*3/uL [place] # (Auto) 0.5 (0.1-1.2) X10*3/uL Eos # (Auto) 0.1 (0.0-0.4) X10*3/uL Baso # (Auto) 0.0 (0.0-0.2) X10*3/uL Abs Immat Gran (auto) 0.01 (0.00-0.03) X10*3/uL Absolute Neuts (auto) 3.5 (2.0-8.3) x10*3/uL Absolute Nucleated RBC 0.000 (0.0-0.012) X10*3/uL Nucleated RBC % (auto) 0.0 (0.0-0.2) /100WBC PT 12.5 (10.0-13.1) SEC INR 1.1 (0.9-1.1) APTT 28.2 (26.0-36.4) SEC Sodium 136 (135-145) mmol/L Potassium 3.4 (3.3-5.1) mmol/L Chloride 105 (96-108) mmol/L Carbon Dioxide 25 (22-29) mmol/L Anion Gap 9 L (12-20) BUN 15 (9-16) mg/dL Creatinine 0.93 (0.5-1.4) mg/dL Estim Creat Clear Calc 98.9 Estimated GFR > 60 Random Glucose 312 H (60-115) mg/dL Lactic Acid (0.5-2.0) mmol/L Calcium 7.8 L D (8.4-10.2) mg/dL Magnesium 2.4 (1.6-2.6) mg/dL Total Bilirubin 1.3 H (0.0-1.0) mg/dL Direct Bilirubin 0.6 H (0.0-0.5) mg/dL AST 81 H (5-37) U/L ALT 73 H (0-40) U/L Alkaline Phosphatase 180 H (39-117) U/L B-Natriuretic Peptide (<100) pg/mL Total Protein 5.2 L (6.5-8.0) g/dL Albumin 2.9 L (3.5-5.0) g/dL Peritoneal WBC X10*3/uL Peritoneal RBC X10*6/uL Stool Occult Blood (NEGATIVE) Blood Type Antibody Screen Crossmatch 10/08/22 10/08/22 10/08/22 Range/Units 18:09 18:09 18:36 WBC (4.8-10.8) X10*3/uL RBC (4.60-5.80) X10*6/uL Hgb (14.0-18.0) g/dl Hct (42.0-52.0) % MCV (80.0-98.0) fL MCH (27.0-33.0) pg MCHC (31.0-36.0) g/dl RDW (11.0-16.0) % Plt Count (160-400) X10*3/uL MPV (9.4-12.4) fL Immature Gran % (Auto) (0.0-0.4) % Neut % (Auto) (45-73) % Lymph % (Auto) (20-40) % [place] % (Auto) (2-11) % Eos % (Auto) (0-4) % Baso % (Auto) (0-2) % Lymph # (Auto) (1.2-4.9) X10*3/uL [place] # (Auto) (0.1-1.2) X10*3/uL Eos # (Auto) (0.0-0.4) X10*3/uL Baso # (Auto) (0.0-0.2) X10*3/uL Abs Immat Gran (auto) (0.00-0.03) X10*3/uL Absolute Neuts (auto) (2.0-8.3) x10*3/uL Absolute Nucleated RBC (0.0-0.012) X10*3/uL Nucleated RBC % (auto) (0.0-0.2) /100WBC PT (10.0-13.1) SEC INR (0.9-1.1) APTT (26.0-36.4) SEC Sodium (135-145) mmol/L Potassium (3.3-5.1) mmol/L Chloride (96-108) mmol/L Carbon Dioxide (22-29) mmol/L Anion Gap (12-20) BUN (9-16) mg/dL Creatinine (0.5-1.4) mg/dL Estim Creat Clear Calc Estimated GFR Random Glucose (60-115) mg/dL Lactic Acid 2.0 (0.5-2.0) mmol/L Calcium (8.4-10.2) mg/dL Magnesium (1.6-2.6) mg/dL Total Bilirubin (0.0-1.0) mg/dL Direct Bilirubin (0.0-0.5) mg/dL AST (5-37) U/L ALT (0-40) U/L Alkaline Phosphatase (39-117) U/L B-Natriuretic Peptide 13 (<100) pg/mL Total Protein (6.5-8.0) g/dL Albumin (3.5-5.0) g/dL Peritoneal WBC X10*3/uL Peritoneal RBC X10*6/uL Stool Occult Blood (NEGATIVE) Blood Type O Positive Antibody Screen NEGATIVE Crossmatch See Detail 10/08/22 10/08/22 Range/Units 18:47 21:30 WBC (4.8-10.8) X10*3/uL RBC (4.60-5.80) X10*6/uL Hgb (14.0-18.0) g/dl Hct (42.0-52.0) % MCV (80.0-98.0) fL MCH (27.0-33.0) pg MCHC (31.0-36.0) g/dl RDW (11.0-16.0) % Plt Count (160-400) X10*3/uL MPV (9.4-12.4) fL Immature Gran % (Auto) (0.0-0.4) % Neut % (Auto) (45-73) % Lymph % (Auto) (20-40) % [place] % (Auto) (2-11) % Eos % (Auto) (0-4) % Baso % (Auto) (0-2) % Lymph # (Auto) (1.2-4.9) X10*3/uL [place] # (Auto) (0.1-1.2) X10*3/uL Eos # (Auto) (0.0-0.4) X10*3/uL Baso # (Auto) (0.0-0.2) X10*3/uL Abs Immat Gran (auto) (0.00-0.03) X10*3/uL Absolute Neuts (auto) (2.0-8.3) x10*3/uL Absolute Nucleated RBC (0.0-0.012) X10*3/uL Nucleated RBC % (auto) (0.0-0.2) /100WBC PT (10.0-13.1) SEC INR (0.9-1.1) APTT (26.0-36.4) SEC Sodium (135-145) mmol/L Potassium (3.3-5.1) mmol/L Chloride (96-108) mmol/L Carbon Dioxide (22-29) mmol/L Anion Gap (12-20) BUN (9-16) mg/dL Creatinine (0.5-1.4) mg/dL Estim Creat Clear Calc Estimated GFR Random Glucose (60-115) mg/dL Lactic Acid (0.5-2.0) mmol/L Calcium (8.4-10.2) mg/dL Magnesium (1.6-2.6) mg/dL Total Bilirubin (0.0-1.0) mg/dL Direct Bilirubin (0.0-0.5) mg/dL AST (5-37) U/L ALT (0-40) U/L Alkaline Phosphatase (39-117) U/L B-Natriuretic Peptide (<100) pg/mL Total Protein (6.5-8.0) g/dL Albumin (3.5-5.0) g/dL Peritoneal WBC 0.316 X10*3/uL Peritoneal RBC < 0.002 X10*6/uL Stool Occult Blood NEGATIVE (NEGATIVE) Blood Type Antibody Screen Crossmatch <JORDAN Valadez - Last Filed: 10/08/22 17:49> Lab Results 10/08/22 10/08/22 10/08/22 Range/Units 18:09 18:09 18:09 WBC 6.1 (4.8-10.8) X10*3/uL RBC 2.35 L D (4.60-5.80) X10*6/uL Hgb 7.0 L* D (14.0-18.0) g/dl Hct 21.3 L D (42.0-52.0) % MCV 90.6 (80.0-98.0) fL MCH 29.8 (27.0-33.0) pg MCHC 32.9 (31.0-36.0) g/dl RDW 14.6 (11.0-16.0) % Plt Count 179 D (160-400) X10*3/uL MPV 9.0 L (9.4-12.4) fL Immature Gran % (Auto) 0.2 (0.0-0.4) % Neut % (Auto) 57.8 (45-73) % Lymph % (Auto) 31.7 (20-40) % [place] % (Auto) 8.0 (2-11) % Eos % (Auto) 2.1 (0-4) % Baso % (Auto) 0.2 (0-2) % Lymph # (Auto) 1.9 (1.2-4.9) X10*3/uL [place] # (Auto) 0.5 (0.1-1.2) X10*3/uL Eos # (Auto) 0.1 (0.0-0.4) X10*3/uL Baso # (Auto) 0.0 (0.0-0.2) X10*3/uL Abs Immat Gran (auto) 0.01 (0.00-0.03) X10*3/uL Absolute Neuts (auto) 3.5 (2.0-8.3) x10*3/uL Absolute Nucleated RBC 0.000 (0.0-0.012) X10*3/uL Nucleated RBC % (auto) 0.0 (0.0-0.2) /100WBC PT 12.5 (10.0-13.1) SEC INR 1.1 (0.9-1.1) APTT 28.2 (26.0-36.4) SEC Sodium 136 (135-145) mmol/L Potassium 3.4 (3.3-5.1) mmol/L Chloride 105 (96-108) mmol/L Carbon Dioxide 25 (22-29) mmol/L Anion Gap 9 L (12-20) BUN 15 (9-16) mg/dL Creatinine 0.93 (0.5-1.4) mg/dL Estim Creat Clear Calc 98.9 Estimated GFR > 60 Random Glucose 312 H (60-115) mg/dL Lactic Acid (0.5-2.0) mmol/L Calcium 7.8 L D (8.4-10.2) mg/dL Magnesium 2.4 (1.6-2.6) mg/dL Total Bilirubin 1.3 H (0.0-1.0) mg/dL Direct Bilirubin 0.6 H (0.0-0.5) mg/dL AST 81 H (5-37) U/L ALT 73 H (0-40) U/L Alkaline Phosphatase 180 H (39-117) U/L B-Natriuretic Peptide (<100) pg/mL Total Protein 5.2 L (6.5-8.0) g/dL Albumin 2.9 L (3.5-5.0) g/dL Peritoneal WBC X10*3/uL Peritoneal RBC X10*6/uL Stool Occult Blood (NEGATIVE) Blood Type Antibody Screen Crossmatch 10/08/22 10/08/22 10/08/22 Range/Units 18:09 18:09 18:36 WBC (4.8-10.8) X10*3/uL RBC (4.60-5.80) X10*6/uL Hgb (14.0-18.0) g/dl Hct (42.0-52.0) % MCV (80.0-98.0) fL MCH (27.0-33.0) pg MCHC (31.0-36.0) g/dl RDW (11.0-16.0) % Plt Count (160-400) X10*3/uL MPV (9.4-12.4) fL Immature Gran % (Auto) (0.0-0.4) % Neut % (Auto) (45-73) % Lymph % (Auto) (20-40) % [place] % (Auto) (2-11) % Eos % (Auto) (0-4) % Baso % (Auto) (0-2) % Lymph # (Auto) (1.2-4.9) X10*3/uL [place] # (Auto) (0.1-1.2) X10*3/uL Eos # (Auto) (0.0-0.4) X10*3/uL Baso # (Auto) (0.0-0.2) X10*3/uL Abs Immat Gran (auto) (0.00-0.03) X10*3/uL Absolute Neuts (auto) (2.0-8.3) x10*3/uL Absolute Nucleated RBC (0.0-0.012) X10*3/uL Nucleated RBC % (auto) (0.0-0.2) /100WBC PT (10.0-13.1) SEC INR (0.9-1.1) APTT (26.0-36.4) SEC Sodium (135-145) mmol/L Potassium (3.3-5.1) mmol/L Chloride (96-108) mmol/L Carbon Dioxide (22-29) mmol/L Anion Gap (12-20) BUN (9-16) mg/dL Creatinine (0.5-1.4) mg/dL Estim Creat Clear Calc Estimated GFR Random Glucose (60-115) mg/dL Lactic Acid 2.0 (0.5-2.0) mmol/L Calcium (8.4-10.2) mg/dL Magnesium (1.6-2.6) mg/dL Total Bilirubin (0.0-1.0) mg/dL Direct Bilirubin (0.0-0.5) mg/dL AST (5-37) U/L ALT (0-40) U/L Alkaline Phosphatase (39-117) U/L B-Natriuretic Peptide 13 (<100) pg/mL Total Protein (6.5-8.0) g/dL Albumin (3.5-5.0) g/dL Peritoneal WBC X10*3/uL Peritoneal RBC X10*6/uL Stool Occult Blood (NEGATIVE) Blood Type O Positive Antibody Screen NEGATIVE Crossmatch See Detail 10/08/22 10/08/22 Range/Units 18:47 21:30 WBC (4.8-10.8) X10*3/uL RBC (4.60-5.80) X10*6/uL Hgb (14.0-18.0) g/dl Hct (42.0-52.0) % MCV (80.0-98.0) fL MCH (27.0-33.0) pg MCHC (31.0-36.0) g/dl RDW (11.0-16.0) % Plt Count (160-400) X10*3/uL MPV (9.4-12.4) fL Immature Gran % (Auto) (0.0-0.4) % Neut % (Auto) (45-73) % Lymph % (Auto) (20-40) % [place] % (Auto) (2-11) % Eos % (Auto) (0-4) % Baso % (Auto) (0-2) % Lymph # (Auto) (1.2-4.9) X10*3/uL [place] # (Auto) (0.1-1.2) X10*3/uL Eos # (Auto) (0.0-0.4) X10*3/uL Baso # (Auto) (0.0-0.2) X10*3/uL Abs Immat Gran (auto) (0.00-0.03) X10*3/uL Absolute Neuts (auto) (2.0-8.3) x10*3/uL Absolute Nucleated RBC (0.0-0.012) X10*3/uL Nucleated RBC % (auto) (0.0-0.2) /100WBC PT (10.0-13.1) SEC INR (0.9-1.1) APTT (26.0-36.4) SEC Sodium (135-145) mmol/L Potassium (3.3-5.1) mmol/L Chloride (96-108) mmol/L Carbon Dioxide (22-29) mmol/L Anion Gap (12-20) BUN (9-16) mg/dL Creatinine (0.5-1.4) mg/dL Estim Creat Clear Calc Estimated GFR Random Glucose (60-115) mg/dL Lactic Acid (0.5-2.0) mmol/L Calcium (8.4-10.2) mg/dL Magnesium (1.6-2.6) mg/dL Total Bilirubin (0.0-1.0) mg/dL Direct Bilirubin (0.0-0.5) mg/dL AST (5-37) U/L ALT (0-40) U/L Alkaline Phosphatase (39-117) U/L B-Natriuretic Peptide (<100) pg/mL Total Protein (6.5-8.0) g/dL Albumin (3.5-5.0) g/dL Peritoneal WBC 0.316 X10*3/uL Peritoneal RBC < 0.002 X10*6/uL Stool Occult Blood NEGATIVE (NEGATIVE) Blood Type Antibody Screen Crossmatch <Shravan Boykin - Last Filed: 10/08/22 22:01> Discharge Plan Discharge Clinical Impression: Acute lower gastrointestinal bleeding, HCV (hepatitis C virus), Abdominal ascites <JORDAN Valadez - Last Filed: 10/08/22 17:49> Patient Disposition: Admitted As Inpatient <JORDAN Valadez - Last Filed: 10/08/22 17:49>
--- NOTE | 2022-10-08 18:12 | MHC.EDTECH ---
PT BLOOD DRAWN INCLUDING LACTIC ACID AND 1ST SET OF BLOOD CULTURE ALL SENT TO LAB .
[2022-10-08 18:13] LABS: MANUAL DIFF FLAG NO
[2022-10-08 18:15] LABS: Basophils Percent Auto 0.2 % (0-2); Eosinophils Absolute Auto 0.1 X10*3/uL (0.0-0.4); Eosinophils Percent Auto 2.1 % (0-4); Hematocrit 21.3 % (42.0-52.0); Imm Gran Abs Auto 0.01 X10*3/uL (0.00-0.03); Imm Gran Pct Auto 0.2 % (0.0-0.4); Lymphocytes Absolute Auto 1.9 X10*3/uL (1.2-4.9); Lymphocytes Percent Auto 31.7 % (20-40); Mean Corpuscular HGB Conc 32.9 g/dl (31.0-36.0); Mean Corpuscular Hemoglobin 29.8 pg (27.0-33.0); Mean Corpuscular Volume 90.6 fL (80.0-98.0); Monocytes Absolute Auto 0.5 X10*3/uL (0.1-1.2); Neutrophils Absolute Auto 3.5 x10*3/uL (2.0-8.3); Neutrophils Percent Auto 57.8 % (45-73); Platelet Count 179 X10*3/uL (160-400); Red Blood Count 2.35 X10*6/uL (4.60-5.80); Red Cell Distribution Width 14.6 % (11.0-16.0); White Blood Count 6.1 X10*3/uL (4.8-10.8)
[2022-10-08 18:27] LABS: Partial Thromboplastin Time 28.2 SEC (26.0-36.4)
[2022-10-08 18:30] LABS: Alanine Aminotransferase 73 U/L (0-40); Albumin Level 2.9 g/dL (3.5-5.0); Alkaline Phosphatase 180 U/L (39-117); Anion Gap 9 (12-20); Aspartate Amino Transferase 81 U/L (5-37); Bilirubin Direct 0.6 mg/dL (0.0-0.5); Bilirubin Total 1.3 mg/dL (0.0-1.0); Blood Urea Nitrogen 15 mg/dL (9-16); Calcium 7.8 mg/dL (8.4-10.2); Carbon Dioxide 25 mmol/L (22-29); Chloride 105 mmol/L (96-108); Creatinine Clr Calc Pharmacy 98.9; Estimated Glomerular Filt Rate > 60; Glucose Random 312 mg/dL (60-115); Magnesium 2.4 mg/dL (1.6-2.6); Potassium 3.4 mmol/L (3.3-5.1); Sodium 136 mmol/L (135-145); Total Protein 5.2 g/dL (6.5-8.0)
[2022-10-08 18:36] LABS: B Type Natriuretic Peptide 13 pg/mL (<100)
[2022-10-08 19:01] LABS: OBS Int Ctl Valid YES; OBS1 NEGATIVE (NEGATIVE)
[2022-10-08] MEDS: Morphine Sulfate 4 MG/ML CARTRIDGE IVPUSH (19:07)
[2022-10-08] MEDS: ondansetron HCL 4 MG/2 ML VIAL IVPUSH (19:07)
[2022-10-08 19:53] VITALS: BP 122/78; PULSE 87; RESP 18; TEMP 36.7
[2022-10-08 20:09] VITALS: BP 133/74; PULSE 82; RESP 15; TEMP 36.7
[2022-10-08 20:53] LABS: INTERNATIONAL NORM RATIO 1.1 (0.9-1.1); Prothrombin Time 12.5 SEC (10.0-13.1)
[2022-10-08 21:50] LABS: WBC Peritoneal Fluid 0.316 X10*3/uL
[2022-10-08 21:51] LABS: RBC Peritoneal Fluid < 0.002 X10*6/uL
[2022-10-08 22:03] VITALS: BP 140/76; PULSE 86; RESP 18; TEMP 36.6; O2SAT 96
--- NOTE | 2022-10-08 22:10 | PM.IMHP ---
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 Patient states that for the past 2 weeks he has had progressively worsening abdominal pain, and throughout the 2 weeks he had few days of bright red blood per rectum. He describes the abdominal pain is severe, constant, diffuse, nonradiating, no alleviating or exacerbating factors. He has also noticed increased distention of his abdomen. He denies any headache or change in vision, he has nausea with no vomiting, reports diarrhea, several episodes a day, reports blood in the diarrhea but that has now resolved. Feels chills with no fever. He is also complaining of urinary symptoms including dysuria as well as frequency that started several days ago. He is also complaining of lower extremity edema. Of note patient has history of liver disease secondary to hepatitis-C, denies history of alcohol abuse, diabetes, hypertension, HLD, bipolar disorder, as well as major depression On arrival to the ED patient found to have a heart rate of 114 Labs are significant for WBC count of 6.1, hemoglobin of 7.0 with a baseline of 13 in April 2022, hematocrit 21.3, total bili of 1.3, direct bili of 0.6, AST of 81, ALT of 73, alk-phos of 180 which seem to be around his baseline, albumin of 2.9, stool occult blood negative INR of 1.1 Patient had a diagnostic paracentesis which was negative for SBP, Patient being transfuse 1 unit of PRBC in being admitted for further management Abdomen pelvic CT shows cirrhosis with diffuse ascites, prominent collateral vessels, Review of Systems Review of Systems: Yes all other systems are reviewed and are negative [facility] Medical History Acid reflux Bipolar disorder Diabetes mellitus Essential hypertension History of substance abuse Left knee pain Moderate recurrent major depression Pure hypercholesterolemia Right knee pain Transaminitis Family History Father CVD (cardiovascular disease) Diabetes Maternal Grandmother Diabetes Brother Respiratory failure Asthma Sister No problems noted. Daughter No problems noted. Family/Other Mental health disorder Surgical History No pertinent past surgical history Social History Household Members: Significant Other Housing: Apartment Alcohol intake: former Patient Tobacco Use Status: Current everyday Tobacco user Tobacco use type: Cigarette Cigarettes Per Day: 10 Years Smoked: 40 Smoked in Last 30 Days: No e-Cigarette/Vaping Use: Never Used Second Hand Smoke Exposure: No Use of substances other than those prescribed or required for medical reasons: No Advance Directives: No Advance Directives Information Provided: No service: No Current occupational status: unemployed Current occupation: Right Handed Cognitive needs: Yes Hearing needs: No Vision needs: No Meds Allergies Allergy/AdvReac Type Severity Reaction Status Date / Time lisinopril AdvReac Intermediate Headache Verified 10/04/22 11:03 varenicline AdvReac Intermediate suicidal Verified 10/04/22 11:03 ideation Home Medications Medication Instructions Recorded Confirmed Last Taken Type prazosin 5 mg capsule 5 mg PO BEDTIME 03/22/20 10/04/22 Unknown History pen needle, diabetic 31 gauge x #50 ea 06/29/20 10/04/22 Unknown History 3 buprenorphine HCl 8 mg sublingual 8 mg sublingual DAILY 08/31/20 10/04/22 Unknown History tablet quetiapine 100 mg tablet (Seroquel) 100 mg PO BEDTIME 08/31/20 10/04/22 Unknown History clonazepam 0.5 mg tablet 0.5 mg PO DAILY PRN 08/15/21 10/04/22 Unknown History quetiapine 50 mg tablet 0 mg PO 08/15/21 10/04/22 Unknown History Physical Exam Vital Signs and Narrative: Vital Signs: Last Vital Signs Temp 97.8 F 10/08/22 22:03 Pulse 86 10/08/22 22:03 Resp 18 10/08/22 22:03 BP 140/76 H 10/08/22 22:03 Pulse Ox 96 10/08/22 22:03 O2 Del Method Room Air 10/08/22 22:03 BMI result Body Mass Index 32.9 Const: General: cooperative and no acute distress Orientation/consciousness: patient oriented x3 Eyes: General: appearance normal, both eyes and all related structures Resp: Effort & Inspection: normal respiratory effort Auscultation: clear to auscultation bilaterally Cardio: Rate: regular rate Rhythm: regular rhythm GI: Other: Distended hard abdomen, tender to palpation, no rebound or guarding Skin: General skin exam: no rashes or lesions noted Neuro: General: patient oriented x3 Cognition (Neuro): normal cognition Extrem: Other: 2+ lower extremity edema General: Yes normal to inspection Results Labs 10/08/22 18:09 10/08/22 18:09 Labs: Laboratory Results - last 24 hr 10/08/22 10/08/22 10/08/22 18:09 18:09 18:09 MCV 90.6 MCH 29.8 MCHC 32.9 RDW 14.6 Plt Count 179 D MPV 9.0 L Immature Gran % (Auto) 0.2 Neut % (Auto) 57.8 Lymph % (Auto) 31.7 [place] % (Auto) 8.0 Eos % (Auto) 2.1 Baso % (Auto) 0.2 Lymph # (Auto) 1.9 [place] # (Auto) 0.5 Eos # (Auto) 0.1 Baso # (Auto) 0.0 Abs Immat Gran (auto) 0.01 Absolute Neuts (auto) 3.5 Absolute Nucleated RBC 0.000 Nucleated RBC % (auto) 0.0 PT 12.5 INR 1.1 APTT 28.2 Anion Gap 9 L Estim Creat Clear Calc 98.9 Estimated GFR > 60 Random Glucose 312 H Lactic Acid Calcium 7.8 L D Magnesium 2.4 Total Bilirubin 1.3 H Direct Bilirubin 0.6 H AST 81 H ALT 73 H Alkaline Phosphatase 180 H B-Natriuretic Peptide Total Protein 5.2 L Albumin 2.9 L Peritoneal WBC Peritoneal RBC Stool Occult Blood Blood Type Antibody Screen Crossmatch 10/08/22 10/08/22 10/08/22 18:09 18:09 18:36 MCV MCH MCHC RDW Plt Count MPV Immature Gran % (Auto) Neut % (Auto) Lymph % (Auto) [place] % (Auto) Eos % (Auto) Baso % (Auto) Lymph # (Auto) [place] # (Auto) Eos # (Auto) Baso # (Auto) Abs Immat Gran (auto) Absolute Neuts (auto) Absolute Nucleated RBC Nucleated RBC % (auto) PT INR APTT Anion Gap Estim Creat Clear Calc Estimated GFR Random Glucose Lactic Acid 2.0 Calcium Magnesium Total Bilirubin Direct Bilirubin AST ALT Alkaline Phosphatase B-Natriuretic Peptide 13 Total Protein Albumin Peritoneal WBC Peritoneal RBC Stool Occult Blood Blood Type O Positive Antibody Screen NEGATIVE Crossmatch See Detail 10/08/22 10/08/22 18:47 21:30 MCV MCH MCHC RDW Plt Count MPV Immature Gran % (Auto) Neut % (Auto) Lymph % (Auto) [place] % (Auto) Eos % (Auto) Baso % (Auto) Lymph # (Auto) [place] # (Auto) Eos # (Auto) Baso # (Auto) Abs Immat Gran (auto) Absolute Neuts (auto) Absolute Nucleated RBC Nucleated RBC % (auto) PT INR APTT Anion Gap Estim Creat Clear Calc Estimated GFR Random Glucose Lactic Acid Calcium Magnesium Total Bilirubin Direct Bilirubin AST ALT Alkaline Phosphatase B-Natriuretic Peptide Total Protein Albumin Peritoneal WBC 0.316 Peritoneal RBC < 0.002 Stool Occult Blood NEGATIVE Blood Type Antibody Screen Crossmatch Imaging Radiologist's Impressions: Impressions Abdomen/Pelvis CT 10/08/22 18:28 IMPRESSION: Findings strongly suggestive of cirrhosis with diffuse ascites. Prominent collateral vessels are seen in the splenic hilum. The ascites can be drained for relief of abdominal pressure/pain. There are nonspecific small retroperitoneal and pavel hepatis lymph nodes. Left lower lobe consolidation/atelectasis with small left pleural effusion. Fleischner guidelines were followed. Assessment and Plan (1) Acute lower gastrointestinal bleeding: Status: Acute (2) Abdominal pain: Qualifiers: Abdominal location: generalized Qualified Code(s): R10.84 - Generalized abdominal pain Status: Acute (3) Abdominal ascites: Qualifiers: Ascites type: other type Qualified Code(s): R18.8 - Other ascites Status: Acute (4) Normocytic anemia: Status: Acute (5) HCV (hepatitis C virus): Qualifiers: Viral hepatitis chronicity: unspecified Hepatic coma status: without hepatic coma Qualified Code(s): B19.20 - Unspecified viral hepatitis C without hepatic coma Status: Acute (6) UTI (urinary tract infection): Qualifiers: Urinary tract infection type: acute cystitis Hematuria presence: without hematuria Qualified Code(s): N30.00 - Acute cystitis without hematuria Status: Acute Plan 52-year-old male with past medical history of HSV, with liver cirrhosis presents to the hospital with complaints of abdominal distension abdominal pain, GI bleed # abdominal pain - likely secondary to significant ascites - patient had diagnostic paracentesis in the ED but not therapeutic, no evidence of SBP - will consult IR for therapeutic paracentesis - supportive measures # acute GI bleed - had multiple episodes of bright red blood at home, - no documented history of EGD/colonoscopy - patient receiving 1 unit of PRBC - will consult GI - ppi IV b.i.d. - will keep NPO # acute normocytic anemia -last hemoglobin from April normal - now with hemoglobin of 7 with complaints of multiple episodes of red blood per rectum - being transfuse 1 unit of blood - follow CBC # abdominal ascites in the setting of HCV - plan for paracentesis by IR - GI consulted - plan for HCV treatment outpatient # UTI - has urinary symptoms - positive UA - will treat with IV antibiotics - although cultures # diabetes - will place on low-dose sliding scale insulin - diabetic diet once able to eat # mood disorder -awaiting med rec- requested - continue home medications DVT prophylaxis: SCDs Given patient's need for further evaluation by GI given the acute GI bleed, as well as normocytic anemia patient will require minimal 2 nights inpatient hospital stay for further management and monitoring Time Spent With Patient Time: Total time managing care of this patient today ____ minutes. Quality Stroke Does the patient have a stroke diagnosis?: No VTE Prior VTE?: No VTE Risk Level:: Medical - moderate - high VTE Device Contraindication: Treatment Not Indicated VTE Drug Contraindication: N/A - Med Ordered
[2022-10-08 22:17] LABS: BF Shift QC OK YES; Lymphocyte Peritoneal Fl 48 %; Monocytes Peritoneal Fl 36 %; Neutrophils Peritoneal Fluid 8 %; Other Peritioneal Fl 8 %
[2022-10-08 22:36] VITALS: BP 142/87; PULSE 77; RESP 15; TEMP 36.6
[2022-10-08] MEDS: Enoxaparin Sodium 40 MG/0.4 ML SYRINGE SUBCUT (22:38)
[2022-10-08] MEDS: Pantoprazole Sodium 40 MG/10 ML VIAL IVPUSH (22:38)
[2022-10-08 22:52] VITALS: BP 145/58; PULSE 89; RESP 18; TEMP 36.3
[2022-10-08 23:25] LABS: Glucose Peritoneal Fluid 248 MG/DL; LDH Peritoneal Fluid 41 U/L; Total Protein Peritoneal Fluid 0.5 GM/DL
[2022-10-09] VITALS (12 sets, daily range): BP systolic 125–157; BP diastolic 67–93; PULSE 72–91; RESP 16–18; TEMP 36.2–37.1; O2SAT 92–100
[2022-10-09] MEDS: 0.9 % Sodium Chloride Flush 3 ML SYRINGE IVFLUSH ×3 (01:06→21:05)
--- NOTE | 2022-10-09 04:27 | MHC.EDTECH ---
Patient reports no pain Vitals are stable Alert and oriented
--- NOTE | 2022-10-09 05:53 | PC.NURSE ---
took over care at 3:15am, pt sleeping no sign of distress, no sob or chest pain, no sign of active bleeding at this time. Will continue to monitor.
[2022-10-09 06:20] LABS: Appearance Urine Clear; Color Urine Dark Yellow; Glucose Urine UA Negative (Negative); Leukocyte Esterase Urine Small (1+) (Negative); Nitrite Urine Positive (Negative); PH 5.5 (5.0-9.0); Specific Gravity - Urine 1.025 (1.005-1.025); UMIC TRIGGER UACC YES; Urine Blood Negative (Negative); Urine Ketones Negative (Negative); Urine Protein Trace mg/dL (Neg-Trace)
[2022-10-09 06:20] LABS: MANUAL DIFF FLAG NO
[2022-10-09 06:26] LABS: Basophils Percent Auto 0.6 % (0-2); Eosinophils Absolute Auto 0.1 X10*3/uL (0.0-0.4); Eosinophils Percent Auto 2.7 % (0-4); Hematocrit 21.4 % (42.0-52.0); Hemoglobin 7.1 g/dl (14.0-18.0); Imm Gran Abs Auto 0.01 X10*3/uL (0.00-0.03); Imm Gran Pct Auto 0.2 % (0.0-0.4); Lymphocytes Absolute Auto 2.3 X10*3/uL (1.2-4.9); Lymphocytes Percent Auto 47.8 % (20-40); Mean Corpuscular HGB Conc 33.2 g/dl (31.0-36.0); Mean Corpuscular Hemoglobin 30.3 pg (27.0-33.0); Mean Corpuscular Volume 91.5 fL (80.0-98.0); Mean Platelet Volume 9.1 fL (9.4-12.4); Monocytes Absolute Auto 0.4 X10*3/uL (0.1-1.2); Monocytes Percent Auto 8.9 % (2-11); Neutrophils Absolute Auto 1.9 x10*3/uL (2.0-8.3); Neutrophils Percent Auto 39.8 % (45-73); Platelet Count 141 X10*3/uL (160-400); Red Blood Count 2.34 X10*6/uL (4.60-5.80); Red Cell Distribution Width 14.6 % (11.0-16.0); White Blood Count 4.7 X10*3/uL (4.8-10.8)
[2022-10-09 06:32] LABS: Bacteria Urine Trace (None Seen); RBC Urine 0-2 /HPF (0-2); UACC Culture Trigger YES; WBC Urine 0-5 /HPF (0-5)
[2022-10-09 06:45] LABS: Anion Gap 9 (12-20); Blood Urea Nitrogen 14 mg/dL (9-16); Calcium 7.5 mg/dL (8.4-10.2); Carbon Dioxide 26 mmol/L (22-29); Chloride 110 mmol/L (96-108); Estimated Glomerular Filt Rate > 60; Glucose Random 109 mg/dL (60-115); Potassium 3.9 mmol/L (3.3-5.1); Sodium 141 mmol/L (135-145)
[2022-10-09] MEDS: cefTRIAXone sodium 1 GM in 0.9 % Sodium Chloride 50 ML IV (06:45)
[2022-10-09] MEDS: Pantoprazole Sodium 40 MG/10 ML VIAL IVPUSH ×2 (06:45→15:30)
--- NOTE | 2022-10-09 07:06 | PC.NURSE ---
pt is resting no sign of distress, pt is resting, report off to Bianca Clayton,
[2022-10-09 07:39] LABS: Glucose, Whole Blood 106 mg/dL (60-115)
[2022-10-09 08:59] LABS: Glucose Random 119 mg/dL (60-115); Lactate Dehydrogenase 223 U/L (118-273); Total Protein 5.1 g/dL (6.5-8.0)
--- NOTE | 2022-10-09 09:38 | PHA.MEDREC ---
Pharmacy Consult ? Medication Reconciliation Pharmacy has completed the medication reconciliation. [employer] used. Pt states he does not take 100mg seroquel all at once and takes 50mg BID. He also mentioned that he had a medication for blood pressure, mentioned lisinopril but has not filled that since last summer. Recent fill for losartan so I added that per claim history
--- NOTE | 2022-10-09 09:51 | PC.NURSE ---
PATIENT COMING FROM RADIOLOGY FROM A PARACENTESIS OKAY PER MD SALAZAR TO HAVE THE UPPER ENDO WITH .
--- NOTE | 2022-10-09 09:54 | PM.GICN ---
History of Present Illness Data of Consult Service Date: 10/09/22 Requesting physician: Karon Ford Primary Care Provider: Kierra Flanagan MD HPI Reason for consult: anemia and ascites 52-year-old male Portuguese-speaking, with hx of untreated HCV, bipolar d/o, chronic knee pain, DM, HTN< and HLP who I am seeing for assessment for ascites and anemia. Patient noted black stools for 12 days continuously which stopped 2 days ago. He has been taking ibuprofen q6 h for few years due to chronic knee pain, and is unsure if taking any PPI. Over last few weeks he also noted increasing abdominal distention with back pressure and diffuse poorly localized abdominal pain, 5/10 in severity with worsening nausea and poor appetite. He has felt hot but no rigors or fevers. Does report diarrhea, several episodes a day along with exertional SOB but no cough or chest pain. He is also complaining of urinary symptoms including dysuria as well as frequency that started several days ago.? He is also complaining of lower extremity edema. denies history of alcohol abuse Last EGD was 01/2019--erosive gastritis, duodenitis and esophagitis. Labs: WBC count of 6.1, hemoglobin of 7.0 with a baseline of 13 in April 2022, hematocrit 21.3, total bili of 1.3, direct bili of 0.6, AST of 81, ALT of 73, alk-phos of 180 which seem to be around his baseline, albumin of 2.9, stool occult blood negative INR of 1.1, UA-nitirite pos Patient had a diagnostic paracentesis which was negative for SBP, Imaging: Abdomen pelvic CT shows cirrhosis with diffuse ascites, prominent collateral vessels, ?Patient was transfused 1 unit of PRBC with minimal improvement in HGB Review of Systems Review of Systems: Constitutional : No Weight loss, ENT/Mouth : No sore throat, No Rhinorrhea Eyes: No Swelling, No Redness Cardiovascular : No Chest Pain, Respiratory : No Cough, No Sputum, No Wheezing Gastrointestinal : see HPI Genitourinary : NO Dysuria, + Urinary Frequency, No Hematuria, No Urgency Musculoskeletal : + joint pains--knees , No Myalgias, No Joint Swelling Skin : No Skin Lesions, No rash Neuro : No Weakness, No Numbness, No Dizziness, No Headache Psych : No Anxiety/Panic, No Depression Heme/Lymph: No Bruising, No Lymphadenopathy Endocrine : No Polyuria, No Polydipsia All other systems reviewed and are negative. [facility] Past Medical History Medical History Acid reflux Bipolar disorder Diabetes mellitus Essential hypertension History of substance abuse Left knee pain Moderate recurrent major depression Pure hypercholesterolemia Right knee pain Transaminitis Family History Family History Father CVD (cardiovascular disease) Diabetes Maternal Grandmother Diabetes Brother Respiratory failure Asthma Sister No problems noted. Daughter No problems noted. Family/Other Mental health disorder Surgical History Surgical History No pertinent past surgical history Social History Social History Household Members: Significant Other Housing: Apartment Alcohol intake: former Patient Tobacco Use Status: Current everyday Tobacco user Tobacco use type: Cigarette Cigarette Packs Per Day: 1 Cigarettes Per Day: 20.0 Years Smoked: 40 e-Cigarette/Vaping Use: Never Used Second Hand Smoke Exposure: No service: No Current occupational status: unemployed Current occupation: Right Handed Cognitive needs: Yes Hearing needs: No Vision needs: No Meds Allergies Allergy/AdvReac Type Severity Reaction Status Date / Time lisinopril AdvReac Intermediate Headache Verified 10/04/22 11:03 varenicline AdvReac Intermediate suicidal Verified 10/04/22 11:03 ideation Active Medications: Current Medications Acetaminophen (Acetaminophen 325 Mg Tablet) 650 mg PO Q6H PRN PRN Reason: Pain, Mild (Pain Scale 1-3) Docusate Sodium (Docusate Sodium 100 Mg Capsule) 100 mg PO DAILY PRN PRN Reason: Constipation Glucose (Glucose Gel 15 Gm Gel..Gram.) 15 gm PO Q15M PRN; Protocol PRN Reason: per Hypoglycemia Standing Ord. Ceftriaxone Sodium 1 gm/ (Sodium Chloride) 50 mls @ 100 mls/hr IV Q24H [facility] Last Infusion: 10/09/22 08:22 Dose: Infused Dextrose (D10) 250 mls @ 750 mls/hr IV Q15M PRN; Protocol PRN Reason: per Hypoglycemia Standing Ord. Insulin Human Lispro (Insulin Lispro 100 Unit/Ml 3 Ml Vial) 0 unit SUBCUT Q6H [facility]; Protocol Ondansetron HCl (Ondansetron Hcl 4 Mg/2 Ml Vial) 4 mg IVPUSH Q8H PRN PRN Reason: Nausea and Vomiting Pantoprazole Sodium (Pantoprazole Sodium 40 Mg/10 Ml Vial) 40 mg IVPUSH BID@0630,1630 [facility] Last Admin: 10/09/22 06:45 Dose: 40 mg Pharmacy Consult (Consult Rx Perform Med Rec) 1 each MISCELLANE ONCE PRN PRN Reason: Consult order Pharmacy Consult (Consult Rx Perform Med Rec) 1 each MISCELLANE ONCE PRN PRN Reason: Consult order Sodium Chloride (0.9 % Sodium Chloride Flush 3 Ml Syringe) 3 ml IVFLUSH QSHIFT [facility] Last Admin: 10/09/22 08:23 Dose: Not Given Home Medications Medication Instructions Recorded Confirmed Last Taken Type pen needle, diabetic 31 gauge x #50 ea 06/29/20 10/04/22 Unknown History 09/06 clonazepam 0.5 mg tablet 0.5 mg PO DAILY PRN Anxiety 08/15/21 10/09/22 Unknown History quetiapine 50 mg tablet 25 mg PO BID 08/15/21 10/09/22 Unknown History buprenorphine 8 mg-naloxone 2 mg 8 mg sublingual TID 10/09/22 10/09/22 10/08/22 History sublingual film insulin glargine 100 unit/mL 35 unit subcut BEDTIME 10/09/22 10/09/22 Unknown History subcutaneous solution (Lantus U-100 Insulin) prazosin 2 mg capsule 2 mg PO BEDTIME 10/09/22 10/09/22 Unknown History Physical Exam Vital Signs: Vital Signs: Last Vital Signs Temp 97.2 F 10/09/22 08:25 Pulse 86 10/09/22 08:25 Resp 17 10/09/22 08:25 BP 134/74 10/09/22 08:25 Pulse Ox 95 10/09/22 08:25 O2 Del Method Room Air 10/09/22 08:25 BMI result Body Mass Index 32.9 EXAM: GENERAL: The patient is well developed and nontoxic. VITAL SIGNS:see workflow HEENT: icteric sclerae, PERRLA, EOMI. Oropharynx clear. Moist mucous membranes. Conjunctivae appear well perfused. No thyroid mass. CHEST: Chest wall is nontender. HEART: Regular rate and rhythm without murmurs. LUNGS: Clear to auscultation bilaterally. ABDOMEN: Soft, positive bowel sounds, mildy diffusely tender, no organomegaly.no flank tenderness--distended abdo with shifting dullness SKIN: No rash, no excessive bruising, petechiae, or purpura. NEUROLOGIC: Cranial nerves II-XII intact without motor/sensory deficit. Psych--nml affect Results Labs 10/09/22 05:53 10/09/22 08:19 Labs: Short CBC 10/08/22 10/09/22 Range/Units 18:09 05:53 WBC 6.1 4.7 L (4.8-10.8) X10*3/uL Hgb 7.0 L* D 7.1 L (14.0-18.0) g/dl Hct 21.3 L D 21.4 L (42.0-52.0) % Plt Count 179 D 141 L (160-400) X10*3/uL BMP 10/08/22 10/09/22 18:09 05:53 Sodium 136 141 Potassium 3.4 3.9 Chloride 105 110 H Carbon Dioxide 25 26 BUN 15 14 Creatinine 0.93 0.73 Calcium 7.8 L D 7.5 L Liver Function 10/08/22 Range/Units 18:09 Total Bilirubin 1.3 H (0.0-1.0) mg/dL Direct Bilirubin 0.6 H (0.0-0.5) mg/dL AST 81 H (5-37) U/L ALT 73 H (0-40) U/L Alkaline Phosphatase 180 H (39-117) U/L Albumin 2.9 L (3.5-5.0) g/dL Urine 10/09/22 Range/Units 06:13 Urine Color Dark Yellow Urine Appearance Clear Urine pH 5.5 (5.0-9.0) Ur Specific [place] 1.025 (1.005-1.025) Urine Protein Trace (Neg-Trace) mg/dL Urine Glucose (UA) Negative (Negative) mg/dL Microbiology Microbiology Results: Microbiology 10/08/22 21:29 Paracentesis Fluid Gram Stain - Final 10/08/22 21:29 Paracentesis Fluid Anaerobic Culture - Preliminary No growth to date. 10/08/22 21:29 Paracentesis Fluid Body Fluid Culture - Preliminary No growth to date. 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 Chronic NSAID use may have decompensated him as well. 2/ Ascites related to decompensated liver disease, maybe also be due to NSAID use and disturbed renal hemodynamics or natural progression of cirrhosis, vs underlying HCC PLAN: 1/ High dose PPI with carafate and octreotide IV 2/ therapeutic paracentesis to reduce abdominal pressure, see if can send for cytology as well, ascites albumin and TP level 3/ EGD later today 4/ once hemodynamically stable can start diuretics aldactone 50 mg lasix 20 mg combo, with close monitoring of CMP 5/ stop nsaids 6/ o/p treatment of HCV once stable 7/ triple phase CT to r/o HCC 8/ watch for HE, optimize lytes and hold sedatives as able 9/ transfuse for target HGB 8-9 g/dl, Time Spent With Patient Time: Total time managing care of this patient today ____ minutes. Procedures Date of Service Date of Service: 10/09/22
--- NOTE | 2022-10-09 10:03 | PC.NURSE ---
PATIENT ARRIVED FROM RADIOLOGY FROM HIS [facility]ENTESIS. REMAINS ALERT AND AWAKE. CALLED FOR [employer]. IT WAS HIS FIRST PARACENTESIS. MARILIA POORLY PER WILL MENA. MARILIA ONLY 1.8 LITERS OF OUTPUT. REMAINS SUPINE. COLOR WNL.
[2022-10-09] MEDS: Lidocaine HCl 1 % MPF 5 ML VIAL SUBCUT (10:10)
[2022-10-09] MEDS: Metoclopramide HCl 10 MG/2 ML VIAL IVPUSH (10:28)
--- NOTE | 2022-10-09 10:45 | MHC.SHP ---
Pre-Procedural Eval Section A Date of Service: 10/09/22 The patient is an INPATIENT: Yes The History & Physical has been completed within 30 days and I have reviewed it.: Yes Section B Chief Complaint: GI bleed Allergies: Allergies Allergy/AdvReac Type Severity Reaction Status Date / Time lisinopril AdvReac Intermediate Headache Verified 10/04/22 11:03 varenicline AdvReac Intermediate suicidal Verified 10/04/22 11:03 ideation Plan Diagnosis/Plan: Unchanged I have reviewed the history and physical and performed a pertinent physical examination on my patient. No changes have occurred unless specified. Time Spent With Patient Time: Total time managing care of this patient today ____ minutes.
--- NOTE | 2022-10-09 10:46 | W.PM.OPN ---
Operative Note Operative Note Date of Service: 10/09/22 Narrative: Procedure Description: EGD Indication: Melena Anesthesia: MAC FLEXIBLE TRANSORAL UPPER GASTROINTESTINAL ENDOSCOPY UPPER ENDOSCOPY Consent: Indications for the procedure and potential complications of bleeding, perforation, reaction to medications and missed diagnosis were discussed with the patient and informed consent was obtained. Instrument: Olympus GIF H 190 J mid size upper endoscope Monitoring: Vital signs and clinical assessment, continuous EKG monitoring, Pulse oximetry, Carbon Dioxide monitoring and blood pressure monitoring were done throughout the procedure. Procedure: The patient was placed in the left lateral decubitis position and pre-procedure medications were administered and a bite block was placed. The endoscope was inserted into the mouth and advanced under direct vision to the third part of duodenum. A careful inspection was made as the upper endoscope was withdrawn including a retroflexed examination of the proximal stomach; Findings and interventions are described below. Findings: Larynx:normal Esophagus: GE junction at 40 cm, diaphragm hiatus at 40 cm, 3 cords of grade III varices noted. No red aviles noted but his HGB is 7 g/dl. x 4 band ligators were placed with good collapse. Stomach: Patchy gastric erythema with granularity consistent with portal hypertensive gastropathy. Biopsies were obtained. Grade 2 flap valve on retroflexed examination of the cardia. In the antrum a clean based Bassem grade III ulcer was noted measuring about 10 mm as well as an adjacent erosion. Duodenum: Normal bulb and descending duodenum, Intervention: Biopsies as noted above, variceal ligation Impression/Findings: esophageal varices portal hypertensive gastropathy gastric ulcer PLAN: cont octreotide for total of 72 hrs high dose PPI, e,g pantoprazole 40 mg BID, stop nsaid, carafate for 2 weeks to reduce risk of post banding ucleration can start diuretics tomorrow, low dose carvedilol if BP tolerates and a statin to reduce portal pressure repeat EGD in 2-4 weeks
[2022-10-09 10:50] LABS: MN% 85.9 %; PMN% 14.1 %; WBC Peritoneal Fluid 0.283 X10*3/uL
[2022-10-09 10:51] LABS: RBC Peritoneal Fluid < 0.002 X10*6/uL
--- NOTE | 2022-10-09 11:43 | HO.RADPN ---
RADIOLOGY Narrative Narrative: RLQ paracentesis using 5 fr catheter. 1.5 L fluid removed. Patient complained of pain and procedure stopped. Specimen sent.
[2022-10-09 11:52] LABS: BF Shift QC OK YES; Lymphocyte Peritoneal Fl 55 %; Man Diluent Bkgrd OK YES; Monocytes Peritoneal Fl 5 %; Neutrophils Peritoneal Fluid 7 %; Other Peritioneal Fl 33 %
--- NOTE | 2022-10-09 12:05 | P.PNIM_ITS ---
Subjective Subjective Date of Service: 10/09/22 Review of Systems Follow up GI bleed no pain s/p EGD and paracentesis sleeping Physical Exam Vital Signs: Vital Signs: Last Vital Signs Temp 98.1 F 10/09/22 11:45 Pulse 82 10/09/22 11:45 Resp 18 10/09/22 11:45 BP 146/82 H 10/09/22 11:45 Pulse Ox 98 10/09/22 11:45 O2 Del Method Room Air 10/09/22 11:45 BMI result Body Mass Index 32.9 Appearing in no acute distress lung sounds are clear to auscultation heart regular rate rhythm, clear S1, S2 positive bowel sounds, abdomen is soft, nontender neuro patient is alert x3, no focal deficits Objective Data Active Medications Acetaminophen (Acetaminophen 325 Mg Tablet) 650 mg PO Q6H PRN PRN Reason: Pain, Mild (Pain Scale 1-3) Docusate Sodium (Docusate Sodium 100 Mg Capsule) 100 mg PO DAILY PRN PRN Reason: Constipation Glucose (Glucose Gel 15 Gm Gel..Gram.) 15 gm PO Q15M PRN; Protocol PRN Reason: per Hypoglycemia Standing Ord. Ceftriaxone Sodium 1 gm/ (Sodium Chloride) 50 mls @ 100 mls/hr IV Q24H [facility] Last Infusion: 10/09/22 08:22 Dose: 0 mls/hr Documented By: CRISTIANA Dextrose (D10) 250 mls @ 750 mls/hr IV Q15M PRN; Protocol PRN Reason: per Hypoglycemia Standing Ord. Insulin Human Lispro (Insulin Lispro 100 Unit/Ml 3 Ml Vial) 0 unit SUBCUT Q6H [facility]; Protocol Ondansetron HCl (Ondansetron Hcl 4 Mg/2 Ml Vial) 4 mg IVPUSH Q8H PRN PRN Reason: Nausea and Vomiting Pantoprazole Sodium (Pantoprazole Sodium 40 Mg/10 Ml Vial) 40 mg IVPUSH BID@0630,1630 [facility] Last Admin: 10/09/22 06:45 Dose: 40 mg Documented By: MICHAEL Pharmacy Consult (Consult Rx Perform Med Rec) 1 each MISCELLANE ONCE PRN PRN Reason: Consult order Pharmacy Consult (Consult Rx Perform Med Rec) 1 each MISCELLANE ONCE PRN PRN Reason: Consult order Sodium Chloride (0.9 % Sodium Chloride Flush 3 Ml Syringe) 3 ml IVFLUSH QSHIFT [facility] Last Admin: 10/09/22 08:23 Dose: Not Given Documented By: CRISTIANA Non-Admin Reason: in ed Labs 10/09/22 05:53 10/09/22 08:19 Labs: Laboratory Results - last 24 hr 10/08/22 10/08/22 10/08/22 18:09 18:09 18:09 MCV 90.6 MCH 29.8 MCHC 32.9 RDW 14.6 Plt Count 179 D MPV 9.0 L Immature Gran % (Auto) 0.2 Neut % (Auto) 57.8 Lymph % (Auto) 31.7 Wilkin % (Auto) 8.0 Eos % (Auto) 2.1 Baso % (Auto) 0.2 Lymph # (Auto) 1.9 Wilkin # (Auto) 0.5 Eos # (Auto) 0.1 Baso # (Auto) 0.0 Abs Immat Gran (auto) 0.01 Absolute Neuts (auto) 3.5 Absolute Nucleated RBC 0.000 Nucleated RBC % (auto) 0.0 PT 12.5 INR 1.1 APTT 28.2 Anion Gap 9 L Estim Creat Clear Calc 98.9 Estimated GFR > 60 POC Glucose Random Glucose 312 H Lactic Acid Calcium 7.8 L D Magnesium 2.4 Total Bilirubin 1.3 H Direct Bilirubin 0.6 H AST 81 H ALT 73 H Alkaline Phosphatase 180 H Lactate Dehydrogenase B-Natriuretic Peptide Total Protein 5.2 L Albumin 2.9 L Urine Color Urine Appearance Urine pH Ur Specific [place] Urine Protein Urine Glucose (UA) Urine Ketones Urine Blood Urine Nitrite Ur Leukocyte Esterase Urine RBC Urine WBC Ur Squamous Epith Cells Urine Bacteria Hyaline Casts Peritoneal WBC Peritoneal RBC Periton Neutrophils Periton Lymphocytes Peritoneal Monocytes Peritoneal Other Cells Peritoneal Tot Protein Peritoneal LDH Peritoneal Glucose Stool Occult Blood Blood Type Antibody Screen Crossmatch 10/08/22 10/08/22 10/08/22 18:09 18:09 18:36 MCV MCH MCHC RDW Plt Count MPV Immature Gran % (Auto) Neut % (Auto) Lymph % (Auto) [place] % (Auto) Eos % (Auto) Baso % (Auto) Lymph # (Auto) Wil[place] # (Auto) Eos # (Auto) Baso # (Auto) Abs Immat Gran (auto) Absolute Neuts (auto) Absolute Nucleated RBC Nucleated RBC % (auto) PT INR APTT Anion Gap Estim Creat Clear Calc Estimated GFR POC Glucose Random Glucose Lactic Acid 2.0 Calcium Magnesium Total Bilirubin Direct Bilirubin AST ALT Alkaline Phosphatase Lactate Dehydrogenase B-Natriuretic Peptide 13 Total Protein Albumin Urine Color Urine Appearance Urine pH Ur Specific [place] Urine Protein Urine Glucose (UA) Urine Ketones Urine Blood Urine Nitrite Ur Leukocyte Esterase Urine RBC Urine WBC Ur Squamous Epith Cells Urine Bacteria Hyaline Casts Peritoneal WBC Peritoneal RBC Periton Neutrophils Periton Lymphocytes Peritoneal Monocytes Peritoneal Other Cells Peritoneal Tot Protein Peritoneal LDH Peritoneal Glucose Stool Occult Blood Blood Type O Positive Antibody Screen NEGATIVE Crossmatch See Detail 10/08/22 10/08/22 10/08/22 18:47 21:29 21:30 MCV MCH MCHC RDW Plt Count MPV Immature Gran % (Auto) Neut % (Auto) Lymph % (Auto) [place] % (Auto) Eos % (Auto) Baso % (Auto) Lymph # (Auto) [place] # (Auto) Eos # (Auto) Baso # (Auto) Abs Immat Gran (auto) Absolute Neuts (auto) Absolute Nucleated RBC Nucleated RBC % (auto) PT INR APTT Anion Gap Estim Creat Clear Calc Estimated GFR POC Glucose Random Glucose Lactic Acid Calcium Magnesium Total Bilirubin Direct Bilirubin AST ALT Alkaline Phosphatase Lactate Dehydrogenase B-Natriuretic Peptide Total Protein Albumin Urine Color Urine Appearance Urine pH Ur Specific [place] Urine Protein Urine Glucose (UA) Urine Ketones Urine Blood Urine Nitrite Ur Leukocyte Esterase Urine RBC Urine WBC Ur Squamous Epith Cells Urine Bacteria Hyaline Casts Peritoneal WBC 0.316 Peritoneal RBC < 0.002 Periton Neutrophils 8 Periton Lymphocytes 48 Peritoneal Monocytes 36 Peritoneal Other Cells 8 Peritoneal Tot Protein 0.5 Peritoneal LDH 41 Peritoneal Glucose 248 Stool Occult Blood NEGATIVE Blood Type Antibody Screen Crossmatch 10/09/22 10/09/22 10/09/22 05:53 05:53 06:13 MCV 91.5 MCH 30.3 MCHC 33.2 RDW 14.6 Plt Count 141 L MPV 9.1 L Immature Gran % (Auto) 0.2 Neut % (Auto) 39.8 L Lymph % (Auto) 47.8 H [place] % (Auto) 8.9 Eos % (Auto) 2.7 Baso % (Auto) 0.6 Lymph # (Auto) 2.3 [place] # (Auto) 0.4 Eos # (Auto) 0.1 Baso # (Auto) 0.0 Abs Immat Gran (auto) 0.01 Absolute Neuts (auto) 1.9 L Absolute Nucleated RBC 0.000 Nucleated RBC % (auto) 0.0 PT INR APTT Anion Gap 9 L Estim Creat Clear Calc 126.0 Estimated GFR > 60 POC Glucose Random Glucose 109 Lactic Acid Calcium 7.5 L Magnesium Total Bilirubin Direct Bilirubin AST ALT Alkaline Phosphatase Lactate Dehydrogenase B-Natriuretic Peptide Total Protein Albumin Urine Color Dark Yellow Urine Appearance Clear Urine pH 5.5 Ur Specific [place] 1.025 Urine Protein Trace Urine Glucose (UA) Negative Urine Ketones Negative Urine Blood Negative Urine Nitrite Positive H Ur Leukocyte Esterase Small (1+) H Urine RBC 0-2 Urine WBC 0-5 Ur Squamous Epith Cells 3-5 Urine Bacteria Trace Hyaline Casts 3-5 Peritoneal WBC Peritoneal RBC Periton Neutrophils Periton Lymphocytes Peritoneal Monocytes Peritoneal Other Cells Peritoneal Tot Protein Peritoneal LDH Peritoneal Glucose Stool Occult Blood Blood Type Antibody Screen Crossmatch 10/09/22 10/09/22 10/09/22 07:36 08:19 09:35 MCV MCH MCHC RDW Plt Count MPV Immature Gran % (Auto) Neut % (Auto) Lymph % (Auto) [place] % (Auto) Eos % (Auto) Baso % (Auto) Lymph # (Auto) [place] # (Auto) Eos # (Auto) Baso # (Auto) Abs Immat Gran (auto) Absolute Neuts (auto) Absolute Nucleated RBC Nucleated RBC % (auto) PT INR APTT Anion Gap Estim Creat Clear Calc Estimated GFR POC Glucose 106 Random Glucose 119 H Lactic Acid Calcium Magnesium Total Bilirubin Direct Bilirubin AST ALT Alkaline Phosphatase Lactate Dehydrogenase 223 B-Natriuretic Peptide Total Protein 5.1 L Albumin Urine Color Urine Appearance Urine pH Ur Specific [place] Urine Protein Urine Glucose (UA) Urine Ketones Urine Blood Urine Nitrite Ur Leukocyte Esterase Urine RBC Urine WBC Ur Squamous Epith Cells Urine Bacteria Hyaline Casts Peritoneal WBC 0.283 Peritoneal RBC < 0.002 Periton Neutrophils 7 Periton Lymphocytes 55 Peritoneal Monocytes 5 Peritoneal Other Cells 33 Peritoneal Tot Protein Peritoneal LDH Peritoneal Glucose Stool Occult Blood Blood Type Antibody Screen Crossmatch Microbiology Microbiology Results: Microbiology 10/08/22 21:29 Gram Stain - Final Paracentesis Fluid Anaerobic Culture - Preliminary No growth to date. Body Fluid Culture - Preliminary No growth to date. Assessment and Plan (1) Acute lower gastrointestinal bleeding: Status: Acute Plan 52-year-old male with past medical history of HSV, with liver cirrhosis presents to the hospital with complaints of abdominal distension abdominal pain, GI bleed. Abdominal pain. Resolved Secondary to significant ascites from HCV liver disease status post paracentesis with 1.5 L of fluid removed, cytology and micro sent Continue Rocephin to prevent SBP, total 5 days Acute GI bleed Multiple episodes of bright red blood per rectum at home Received 1 unit of packed red blood cells Status post EGD with findings of esophageal varices (banded), portal hypertensive gastropathy and gastric ulcer Plan as per GI: -octreotide for 72 hours -high-dose PPI pantoprazole 40 mg b.i.d. -stop NSAIDs -Carafate for 2 weeks to reduce risk of post banding ulceration -low-dose carvedilol if blood pressure tolerates -repeat EGD in 2-4 weeks -clears today advance tomorrow Acute normocytic anemia Secondary to rectal bleeding Status post transfusion of 1 unit of packed red blood cells Status post EGD, no active bleeding Follow CBC and transfuse as necessary UTI Rocephin Follow up final culture Diabetes SS, ada diet Mood disorder continue home medications DVT prophylaxis:? SCDs Attending Dr. Man Continue hospitalization for treatment of GI bleed requiring IV medications and very close monitoring for any further bleeding Time Spent With Patient Time: Total time managing care of this patient today ____ minutes. Quality Stroke Does the patient have a stroke diagnosis?: No VTE Prior VTE?: No VTE Risk Level:: Medical - moderate - high VTE Device Contraindication: Treatment Not Indicated VTE Drug Contraindication: N/A - Med Ordered
[2022-10-09 12:32] LABS: Glucose, Whole Blood 144 mg/dL (60-115)
[2022-10-09] MEDS: Buprenorphine/Naloxone 8/2 mg FILM 1 FILM SUBLINGUAL ×2 (13:56→21:04)
[2022-10-09 14:24] LABS: Albumin Peritoneal Fluid 0.3 GM/DL; Amylase Peritoneal Fluid 13 U/L; Glucose Peritoneal Fluid 130 MG/DL; LDH Peritoneal Fluid 42 U/L; Total Protein Peritoneal Fluid 0.6 GM/DL
--- NOTE | 2022-10-09 14:32 | MHC.CM.PN ---
pt lives with s/o is independent had no previous servceis may need asssit w/transport home covid vax x 2
[2022-10-09 14:44] LABS: pH Peritoneal Fluid 7.54
[2022-10-09] MEDS: Sucralfate 1 GM TABLET PO ×2 (15:30→21:04)
[2022-10-09] MEDS: Octreotide Acetate 500 MCG in 0.9 % Sodium Chloride 500 ML 50.1 MCG IVCONT (16:12)
[2022-10-09 16:25] LABS: Glucose, Whole Blood 260 mg/dL (60-115)
--- NOTE | 2022-10-09 17:16 | PC.NURSE ---
Patient came back from EGD, patients was NPO. snuck in [employer] and patient immediately grabbed the food and started inhaling the food into his mouth when this show card writer intervened with an spa supervisor. Patient then began to dry heave but not vomit. Patient received dinner tray of clear liquids and began to shout at fast food restaurant manager staff member. This show card writer intervened and de-escalated the situation. Physicist Acoustics called to educate patient. Patient was yelling at fast food restaurant manager staff in Slovenian after dening he spoke Slovenian.
[2022-10-09 17:25] LABS: Glucose, Whole Blood 245 mg/dL (60-115)
[2022-10-09] MEDS: Insulin Lispro 100 UNIT/ML 3 ML VIAL SUBCUT ×2 (17:28→23:36)
--- NOTE | 2022-10-09 18:06 | PC.NURSE ---
Spoke to patient about diet with [place] Intp. States understanding and acceptance of Clear Liquid Diet.
[2022-10-09 20:46] LABS: Glucose, Whole Blood 251 mg/dL (60-115)
[2022-10-09] MEDS: Prazosin HCL 1 MG CAPSULE 2 MG PO (21:04)
[2022-10-09] MEDS: Insulin Glargine,Hum.rec.anlog 100 UNIT/ML 10 ML VIAL 35 UNIT SUBCUT (21:04)
[2022-10-09] MEDS: QUEtiapine Fumarate 25 MG TABLET PO (21:04)
[2022-10-09] MEDS: carvediloL 3.125 MG TABLET PO (21:06)
[2022-10-09 23:18] LABS: Glucose, Whole Blood 213 mg/dL (60-115)
[2022-10-10] MEDS: Octreotide Acetate 500 MCG in 0.9 % Sodium Chloride 500 ML 50.1 MCG IVCONT ×3 (01:39→21:01)
[2022-10-10 03:59] VITALS: BP 123/56; PULSE 86; RESP 18; TEMP 36.9; O2SAT 92
[2022-10-10 05:50] LABS: Glucose, Whole Blood 127 mg/dL (60-115)
[2022-10-10] MEDS: Pantoprazole Sodium 40 MG/10 ML VIAL IVPUSH ×2 (05:59→16:56)
[2022-10-10] MEDS: cefTRIAXone sodium 1 GM in 0.9 % Sodium Chloride 50 ML IV (06:09)
[2022-10-10 06:28] LABS: Hematocrit 21.1 % (42.0-52.0); Mean Corpuscular HGB Conc 33.2 g/dl (31.0-36.0); Mean Corpuscular Hemoglobin 30.4 pg (27.0-33.0); Mean Corpuscular Volume 91.7 fL (80.0-98.0); Mean Platelet Volume 9.5 fL (9.4-12.4); Platelet Count 139 X10*3/uL (160-400); Red Cell Distribution Width 14.5 % (11.0-16.0)
[2022-10-10 06:47] LABS: Anion Gap 9 (12-20); Blood Urea Nitrogen 13 mg/dL (9-16); Calcium 7.4 mg/dL (8.4-10.2); Carbon Dioxide 25 mmol/L (22-29); Chloride 108 mmol/L (96-108); Creatinine Clr Calc Pharmacy 116.4; Estimated Glomerular Filt Rate > 60; Glucose Random 123 mg/dL (60-115); Potassium 4.2 mmol/L (3.3-5.1); Sodium 138 mmol/L (135-145)
[2022-10-10 07:17] VITALS: BP 126/68; PULSE 84; RESP 16; TEMP 36.6; O2SAT 92
[2022-10-10 07:18] LABS: Glucose, Whole Blood 123 mg/dL (60-115)
[2022-10-10] MEDS: QUEtiapine Fumarate 25 MG TABLET PO ×2 (08:27→21:02)
[2022-10-10] MEDS: Cholecalciferol (Vitamin D3) 25 MCG TABLET 50 MCG PO (08:27)
[2022-10-10] MEDS: Sucralfate 1 GM TABLET PO ×4 (08:27→21:02)
[2022-10-10] MEDS: carvediloL 3.125 MG TABLET PO ×2 (08:28→21:02)
[2022-10-10] MEDS: Buprenorphine/Naloxone 8/2 mg FILM 1 FILM SUBLINGUAL ×3 (09:39→21:02)
[2022-10-10] MEDS: Lidocaine 4 % Patch ADH..PATCH 1 PATCH TRANSDERMA (09:40)
--- NOTE | 2022-10-10 10:18 | HO.POSTANES ---
Post Anesthesia Evaluation Post Anesthesia Evaluation Vital Signs: Vital Signs Temp Pulse Resp BP Pulse Ox O2 Del Method 10/10/22 07:17 97.8 F 84 16 126/68 92 Room Air 10/10/22 03:59 98.4 F 86 18 123/56 L 92 Room Air 10/09/22 23:33 98.5 F 89 18 140/76 H 92 Room Air Anesthesia: Monitored Mental Status: Awake Pain Control: Satisfactory Nausea/Vomiting: None Hydration: Adequate Anesthesia-Related Issues: No Anes. Related Issues Comments: H and H being monitored by Hospitalist team .
[2022-10-10 11:12] LABS: Glucose, Whole Blood 183 mg/dL (60-115)
[2022-10-10] MEDS: Simethicone 80 MG TAB.CHEW PO ×3 (11:51→21:02)
[2022-10-10] MEDS: Insulin Lispro 100 UNIT/ML 3 ML VIAL SUBCUT ×2 (11:51→16:56)
[2022-10-10 12:00] VITALS: BP 139/78; PULSE 83; RESP 18; TEMP 36.6; O2SAT 97
[2022-10-10 15:16] VITALS: BP 128/66; PULSE 78; RESP 18; TEMP 36.6; O2SAT 96
--- NOTE | 2022-10-10 15:58 | MHC.CM.PN ---
per rounds no antivcapated dc at this time dc plan remanis home no servcies
[2022-10-10 16:13] LABS: Hematocrit 23.2 % (42.0-52.0); Hemoglobin 7.4 g/dl (14.0-18.0)
[2022-10-10 16:15] LABS: Glucose, Whole Blood 208 mg/dL (60-115)
--- NOTE | 2022-10-10 16:56 | P.PNIM_ITS ---
Subjective Subjective Date of Service: 10/10/22 Interval History: seen in follow-up for GI bleed related to esophageal varices interval history: EGD yesterday, varices banded. H/ H improved. Reports abdominal bloating and discomfort. Denies any nausea, vomiting, diarrhea. Review of Systems Review of Systems: Yes all other systems are reviewed and are negative Physical Exam Vital Signs: Vital Signs: Last Vital Signs Temp 97.9 F 10/10/22 15:16 Pulse 78 10/10/22 15:16 Resp 18 10/10/22 15:16 BP 128/66 10/10/22 15:16 Pulse Ox 96 10/10/22 15:16 O2 Del Method Room Air 10/10/22 15:16 BMI result Body Mass Index 32.9 Constitutional - Awake and Alert, No apparent distress Eyes - PERRLA, EOMI Cardiovascular - S1S2, RRR, No edema Respiratory - Normal lung expansion, Normal respiratory effort, No respiratory distress, CTA bilaterally Gastrointestinal - moderately distended with positive fluid wave, mild diffuse discomfort without guarding or rebound. +BS Extremities - no calf tenderness bilaterally, no swelling Skin - Warm/Dry Neurological - Alert & oriented x3 Psychological - Appropriate affect Objective Data Active Medications Acetaminophen (Acetaminophen 325 Mg Tablet) 650 mg PO Q6H PRN PRN Reason: Pain, Mild (Pain Scale 1-3) Buprenorphine/Naloxone (Buprenorphine/Naloxone 8/2 Mg Film) 1 film SUBLINGUAL TID [facility] Last Admin: 10/10/22 14:29 Dose: 1 film Documented By: BEVERLY Carvedilol (Carvedilol 3.125 Mg Tablet) 3.125 mg PO BID [facility]; Protocol Last Admin: 10/10/22 08:28 Dose: 3.125 mg Documented By: BEVERLY Clonazepam (Clonazepam 0.5 Mg Tablet) 0.5 mg PO DAILY PRN PRN Reason: Anxiety Docusate Sodium (Docusate Sodium 100 Mg Capsule) 100 mg PO DAILY PRN PRN Reason: Constipation Glucose (Glucose Gel 15 Gm Gel..Gram.) 15 gm PO Q15M PRN; Protocol PRN Reason: per Hypoglycemia Standing Ord. Ceftriaxone Sodium 1 gm/ (Sodium Chloride) 50 mls @ 100 mls/hr IV Q24H [facility] Stop: 10/13/22 23:59 Last Infusion: 10/10/22 06:43 Dose: 0 mls/hr Documented By: HINA Dextrose (D10) 250 mls @ 750 mls/hr IV Q15M PRN; Protocol PRN Reason: per Hypoglycemia Standing Ord. Octreotide Acetate 500 mcg/ (Sodium Chloride) 501 mls @ 50.1 mls/hr IVCONT .Q10H [facility] Stop: 10/12/22 15:14 Last Admin: 10/10/22 11:52 Dose: 50 mcg/hr, 50.1 mls/hr Documented By: BEVERLY Insulin Glargine (Insulin Glargine,Hum.Rec.Anlog 100 Unit/Ml 10 Ml Vial) 35 unit SUBCUT BEDTIME [facility] Last Admin: 10/09/22 21:04 Dose: 35 unit Documented By: GRABIEL Insulin Human Lispro (Insulin Lispro 100 Unit/Ml 3 Ml Vial) 0 unit SUBCUT Q6H [facility]; Protocol Last Admin: 10/10/22 11:51 Dose: 2 unit Documented By: BEVERLY Lidocaine (Lidocaine 4 % Patch Adh..Patch) 1 patch TRANSDERMA DAILY [facility] Last Admin: 10/10/22 09:40 Dose: 1 patch Documented By: BEVERLY Non-Formulary Medication (Varenicline) 0.5 mg PO BID [facility] Ondansetron HCl (Ondansetron Hcl 4 Mg/2 Ml Vial) 4 mg IVPUSH Q8H PRN PRN Reason: Nausea and Vomiting Pantoprazole Sodium (Pantoprazole Sodium 40 Mg/10 Ml Vial) 40 mg IVPUSH BID@0630,1630 [facility] Last Admin: 10/10/22 05:59 Dose: 40 mg Documented By: GRABIEL Pharmacy Consult (Consult Rx Perform Med Rec) 1 each MISCELLANE ONCE PRN PRN Reason: Consult order Pharmacy Consult (Consult Rx Perform Med Rec) 1 each MISCELLANE ONCE PRN PRN Reason: Consult order Prazosin HCl (Prazosin Hcl 1 Mg Capsule) 2 mg PO BEDTIME [facility]; Protocol Last Admin: 10/09/22 21:04 Dose: 2 mg Documented By: GRABIEL Quetiapine Fumarate (Quetiapine Fumarate 25 Mg Tablet) 25 mg PO BID [facility] Last Admin: 10/10/22 08:27 Dose: 25 mg Documented By: BEVERLY Simethicone (Simethicone 80 Mg Tab.Chew) 80 mg PO QIDWMHS [facility] Last Admin: 10/10/22 11:51 Dose: 80 mg Documented By: BEVERLY Sodium Chloride (0.9 % Sodium Chloride Flush 3 Ml Syringe) 3 ml IVFLUSH QSHIFT [facility] Last Admin: 10/10/22 08:33 Dose: Not Given Documented By: BEVERLY Non-Admin Reason: IV Running Sucralfate (Sucralfate 1 Gm Tablet) 1 gm PO QIDACHS [facility] Last Admin: 10/10/22 11:51 Dose: 1 gm Documented By: BEVERLY Vitamin D (Cholecalciferol (Vitamin D3) 25 Mcg Tablet) 50 mcg PO DAILY [facility] Last Admin: 10/10/22 08:27 Dose: 50 mcg Documented By: BEVERLY Labs 10/10/22 16:03 10/10/22 05:43 Labs: Laboratory Results - last 24 hr 10/09/22 10/09/22 10/09/22 17:22 20:42 23:13 MCV MCH MCHC RDW Plt Count MPV Absolute Nucleated RBC Nucleated RBC % (auto) Anion Gap Estim Creat Clear Calc Estimated GFR POC Glucose 245 H 251 H 213 H Random Glucose Calcium 10/10/22 10/10/22 10/10/22 05:41 05:43 05:43 MCV 91.7 MCH 30.4 MCHC 33.2 RDW 14.5 Plt Count 139 L MPV 9.5 Absolute Nucleated RBC 0.000 Nucleated RBC % (auto) 0.0 Anion Gap 9 L Estim Creat Clear Calc 116.4 Estimated GFR > 60 POC Glucose 127 H Random Glucose 123 H Calcium 7.4 L 10/10/22 10/10/22 10/10/22 07:15 11:05 16:06 MCV MCH MCHC RDW Plt Count MPV Absolute Nucleated RBC Nucleated RBC % (auto) Anion Gap Estim Creat Clear Calc Estimated GFR POC Glucose 123 H 183 H 208 H Random Glucose Calcium Microbiology Microbiology Results: Microbiology 10/09/22 Unknown Urine Culture - Preliminary Urine clean catch - Urine davis top Gram negative gwendolyn 10/09/22 09:35 Gram Stain - Final Abdomen - Abdominal Routine Culture - Preliminary No growth to date. Anaerobic Culture - Preliminary No growth to date. 10/08/22 21:29 Gram Stain - Final Paracentesis Fluid Anaerobic Culture - Preliminary No growth to date. Body Fluid Culture - Preliminary No growth to date. 10/08/22 18:40 Blood Culture - Preliminary Blood - Venous No growth after 24 hours. 10/08/22 18:08 Blood Culture - Preliminary Blood - Venous No growth after 24 hours. Assessment and Plan (1) Esophageal varices with bleeding: Status: Acute (2) Gastric ulcer: Status: Acute Plan 52-year-old male with past medical history of HSV, with liver cirrhosis presents to the hospital with complaints of abdominal distension abdominal pain, GI bleed. Abdominal pain. Secondary to significant ascites from HCV liver disease status post paracentesis with 1.5 L of fluid removed, cytology and micro sent Moderate discomfort And distension -likely reaccumulation of peritoneal fluid. No dyspnea. Continue monitoring initiate spironolactone 50 mg. Monitor BP and consider adding furosemide 20 mg tomorrow if blood pressure and electrolytes allow per Gastroenterology Continue Rocephin to prevent SBP, total 5 days Acute GI bleed Multiple episodes of bright red blood per rectum at home Received 1 unit of packed red blood cells. Status post EGD with findings of esophageal varices (banded), portal hypertensive gastropathy and gastric ulcer (chronicity unknown) H/H improving s/p banding Plan as per GI: -octreotide for 72 hours (D2) -high-dose PPI pantoprazole 40 mg b.i.d. -stop NSAIDs -Carafate for 2 weeks to reduce risk of post banding ulceration -low-dose carvedilol if blood pressure tolerates -repeat EGD in 2-4 weeks -Diet advanced to diabetic diet -Resume diuretics as above Acute normocytic anemia- stable Secondary to rectal bleeding Status post transfusion of 1 unit of packed red blood cells Status post EGD, no active bleeding Follow CBC and transfuse as necessary UTI Rocephin UC- GNR. Follow up final culture Diabetes SS, ada diet Mood disorder continue home medications DVT prophylaxis:? SCDs Attending Dr. Man Continue hospitalization for treatment of GI bleed requiring IV medications and very close monitoring for any further bleeding Time Spent With Patient Time: Total time managing care of this patient today ____ minutes. Quality Stroke Does the patient have a stroke diagnosis?: No VTE Prior VTE?: No VTE Risk Level:: Medical - moderate - high VTE Device Contraindication: Treatment Not Indicated VTE Drug Contraindication: N/A - Med Ordered
[2022-10-10] MEDS: 0.9 % Sodium Chloride Flush 3 ML SYRINGE IVFLUSH (16:57)
--- NOTE | 2022-10-10 17:30 | P.CDIM_ITS ---
PROVIDER RESPONSE TEXT: To clarify, the appropriate diagnosis supported by the clinical indicators: Clinically unable to determine (explain): I am unabel to determine chronicity of ulcer as there are n o prior reports to review QUERY TEXT: PHYSICIAN'S DOCUMENTATION REQUEST Date of Query: 10/10/2022 10:39 AM EDT Patient Name: Vasile Manrique Admit Date: 10/09/2022 Dear Patsy Alanis, A review of the medical record indicates additional documentation may be needed. Please review below and update the documentation accordingly. Clinical Indicators: Op note 10/09 - Flexible Transoral Upper Gastrointestinal Endoscopy FINDINGS: Gastric ulcer Possible options might include: Acute Gastric ulcer Acute on chronic Gastric ulcer Other Other (explain) Clinically unable to determine (explain) Thank you, Adamaris Moreira, CCS, CDIS Use of terms such as suspected, likely, concern for, or probable (associated with a specific diagnosi s that is being evaluated, monitored, or treated as if it exists) are acceptable and can be coded in the inpatient se tting, when documented at the time of discharge. Please use your independent medical judgment in providing your response. THIS QUERY IS PART OF THE PERMANENT MEDICAL RECORD
[2022-10-10] MEDS: Spironolactone 25 MG TABLET 50 MG PO (17:37)
[2022-10-10 19:15] VITALS: BP 124/71; PULSE 90; RESP 18; TEMP 37; O2SAT 98
[2022-10-10 20:51] LABS: Glucose, Whole Blood 146 mg/dL (60-115)
[2022-10-10] MEDS: Prazosin HCL 1 MG CAPSULE 2 MG PO (21:02)
[2022-10-10] MEDS: Insulin Glargine,Hum.rec.anlog 100 UNIT/ML 10 ML VIAL 35 UNIT SUBCUT (21:03)
[2022-10-10 23:33] VITALS: BP 120/57; PULSE 85; RESP 16; TEMP 36.9; O2SAT 95
[2022-10-11 03:06] VITALS: BP 132/60; PULSE 85; RESP 18; TEMP 36.6; O2SAT 93
[2022-10-11] MEDS: Pantoprazole Sodium 40 MG/10 ML VIAL IVPUSH ×2 (06:08→15:58)
[2022-10-11] MEDS: cefTRIAXone sodium 1 GM in 0.9 % Sodium Chloride 50 ML IV (06:08)
[2022-10-11] MEDS: Octreotide Acetate 500 MCG in 0.9 % Sodium Chloride 500 ML 50.1 MCG IVCONT ×2 (06:09→17:51)
[2022-10-11 06:21] LABS: Glucose, Whole Blood 123 mg/dL (60-115)
[2022-10-11 07:01] LABS: Alanine Aminotransferase 62 U/L (0-40); Albumin Level 2.4 g/dL (3.5-5.0); Alkaline Phosphatase 171 U/L (39-117); Anion Gap 9 (12-20); Aspartate Amino Transferase 77 U/L (5-37); Bilirubin Total 1.3 mg/dL (0.0-1.0); Blood Urea Nitrogen 14 mg/dL (9-16); Calcium 7.1 mg/dL (8.4-10.2); Carbon Dioxide 21 mmol/L (22-29); Chloride 111 mmol/L (96-108); Creatinine Clr Calc Pharmacy 97.8; Estimated Glomerular Filt Rate > 60; Glucose Random 123 mg/dL (60-115); Potassium 4.3 mmol/L (3.3-5.1); Sodium 137 mmol/L (135-145); Total Protein 4.7 g/dL (6.5-8.0)
[2022-10-11 07:12] LABS: Basophils Percent Auto 0.5 % (0-2); Eosinophils Absolute Auto 0.2 X10*3/uL (0.0-0.4); Eosinophils Percent Auto 3.7 % (0-4); Hematocrit 22.3 % (42.0-52.0); Hemoglobin 7.2 g/dl (14.0-18.0); Imm Gran Abs Auto 0.02 X10*3/uL (0.00-0.03); Imm Gran Pct Auto 0.5 % (0.0-0.4); Lymphocytes Absolute Auto 1.7 X10*3/uL (1.2-4.9); Lymphocytes Percent Auto 39.1 % (20-40); Mean Corpuscular HGB Conc 32.3 g/dl (31.0-36.0); Mean Corpuscular Hemoglobin 29.6 pg (27.0-33.0); Mean Corpuscular Volume 91.8 fL (80.0-98.0); Mean Platelet Volume 8.9 fL (9.4-12.4); Monocytes Absolute Auto 0.5 X10*3/uL (0.1-1.2); Monocytes Percent Auto 10.5 % (2-11); Neutrophils Percent Auto 45.7 % (45-73); Platelet Count 144 X10*3/uL (160-400); Red Blood Count 2.43 X10*6/uL (4.60-5.80); Red Cell Distribution Width 14.7 % (11.0-16.0); White Blood Count 4.4 X10*3/uL (4.8-10.8)
[2022-10-11] MEDS: Simethicone 80 MG TAB.CHEW PO ×4 (07:57→21:01)
[2022-10-11] MEDS: Sucralfate 1 GM TABLET PO ×4 (07:57→21:01)
[2022-10-11] MEDS: Cholecalciferol (Vitamin D3) 25 MCG TABLET 50 MCG PO (07:57)
[2022-10-11] MEDS: Lidocaine 4 % Patch ADH..PATCH 1 PATCH TRANSDERMA (07:57)
[2022-10-11] MEDS: carvediloL 3.125 MG TABLET PO ×2 (07:57→21:01)
[2022-10-11] MEDS: QUEtiapine Fumarate 25 MG TABLET PO ×2 (07:58→21:01)
[2022-10-11] MEDS: Spironolactone 25 MG TABLET 50 MG PO (07:58)
[2022-10-11 08:00] VITALS: BP 140/82; PULSE 89; RESP 18; TEMP 36.7; O2SAT 99
[2022-10-11 08:08] LABS: Glucose, Whole Blood 120 mg/dL (60-115)
[2022-10-11 08:48] LABS: MANUAL DIFF FLAG NO
[2022-10-11] MEDS: Buprenorphine/Naloxone 8/2 mg FILM 1 FILM SUBLINGUAL ×3 (08:51→21:00)
[2022-10-11 11:30] LABS: Glucose, Whole Blood 166 mg/dL (60-115)
[2022-10-11] MEDS: Insulin Lispro 100 UNIT/ML 3 ML VIAL SUBCUT ×3 (11:42→21:00)
[2022-10-11 12:00] VITALS: BP 153/69; PULSE 80; RESP 18; TEMP 36.7; O2SAT 97
--- NOTE | 2022-10-11 12:15 | HO.PM.IMPN ---
Subjective Subjective Date of Service: 10/11/22 Interval History: seen and examined this morning Follow-up for GI bleed. History obtained with the assistance of a application consultant patient reporting abdominal bloating and shortness of breath when sitting up due to abdominal distension denies abdominal pain. Denies any further bleeding Review of Systems Review of Systems: Yes all other systems are reviewed and are negative Constitutional Constitutional: Denies chills and Denies fever(s) Cardiovascular Cardiovascular: Denies chest pain Respiratory Respiratory: Denies cough Gastrointestinal Gastrointestinal: Reports bloating Physical Exam Vital Signs: Vital Signs: Last Vital Signs Temp 98.1 F 10/11/22 08:00 Pulse 89 10/11/22 08:00 Resp 18 10/11/22 08:00 BP 140/82 H 10/11/22 08:00 Pulse Ox 99 10/11/22 08:00 O2 Del Method Room Air 10/11/22 08:00 BMI result Body Mass Index 32.9 Const: General: comfortable, no acute distress, alert and awake Nutritional Appearance: average body habitus Orientation/consciousness: patient oriented x3 Resp: Effort & Inspection: normal respiratory effort and able to speak in complete sentences Cardio: Rate: regular rate Heart sounds: S1 normal heart sound present and S2 normal heart sound present GI: Other: abdomen softly distended Percussion: Yes Fluid wave present Neuro: General: patient oriented x3 and CN's II-XI intact bilaterally Extrem: Other: trace leg edema Objective Data Active Medications Acetaminophen (Acetaminophen 325 Mg Tablet) 650 mg PO Q6H PRN PRN Reason: Pain, Mild (Pain Scale 1-3) Buprenorphine/Naloxone (Buprenorphine/Naloxone 8/2 Mg Film) 1 film SUBLINGUAL TID [facility] Last Admin: 10/11/22 08:51 Dose: 1 film Documented By: CRISTIANA Carvedilol (Carvedilol 3.125 Mg Tablet) 3.125 mg PO BID [facility]; Protocol Last Admin: 10/11/22 07:57 Dose: 3.125 mg Documented By: CRISTIANA Clonazepam (Clonazepam 0.5 Mg Tablet) 0.5 mg PO DAILY PRN PRN Reason: Anxiety Docusate Sodium (Docusate Sodium 100 Mg Capsule) 100 mg PO DAILY PRN PRN Reason: Constipation Glucose (Glucose Gel 15 Gm Gel..Gram.) 15 gm PO Q15M PRN; Protocol PRN Reason: per Hypoglycemia Standing Ord. Ceftriaxone Sodium 1 gm/ (Sodium Chloride) 50 mls @ 100 mls/hr IV Q24H [facility] Stop: 10/13/22 23:59 Last Infusion: 10/11/22 07:26 Dose: 0 mls/hr Documented By: CRISTIANA Dextrose (D10) 250 mls @ 750 mls/hr IV Q15M PRN; Protocol PRN Reason: per Hypoglycemia Standing Ord. Octreotide Acetate 500 mcg/ (Sodium Chloride) 501 mls @ 50.1 mls/hr IVCONT .Q10H [facility] Stop: 10/12/22 15:14 Last Admin: 10/11/22 06:09 Dose: 50 mcg/hr, 50.1 mls/hr Documented By: ISIDRA Insulin Glargine (Insulin Glargine,Hum.Rec.Anlog 100 Unit/Ml 10 Ml Vial) 35 unit SUBCUT BEDTIME [facility] Last Admin: 10/10/22 21:03 Dose: 35 unit Documented By: ISIDRA Insulin Human Lispro (Insulin Lispro 100 Unit/Ml 3 Ml Vial) 0 unit SUBCUT QIDACHS [facility]; Protocol Last Admin: 10/11/22 11:42 Dose: 2 unit Documented By: CRISTIANA Lidocaine (Lidocaine 4 % Patch Adh..Patch) 1 patch TRANSDERMA DAILY [facility] Last Admin: 10/11/22 07:57 Dose: 1 patch Documented By: CRISTIANA Non-Formulary Medication (Varenicline) 0.5 mg PO BID [facility] Ondansetron HCl (Ondansetron Hcl 4 Mg/2 Ml Vial) 4 mg IVPUSH Q8H PRN PRN Reason: Nausea and Vomiting Pantoprazole Sodium (Pantoprazole Sodium 40 Mg/10 Ml Vial) 40 mg IVPUSH BID@0630,1630 [facility] Last Admin: 10/11/22 06:08 Dose: 40 mg Documented By: ISIDRA Pharmacy Consult (Consult Rx Perform Med Rec) 1 each MISCELLANE ONCE PRN PRN Reason: Consult order Pharmacy Consult (Consult Rx Perform Med Rec) 1 each MISCELLANE ONCE PRN PRN Reason: Consult order Prazosin HCl (Prazosin Hcl 1 Mg Capsule) 2 mg PO BEDTIME [facility]; Protocol Last Admin: 10/10/22 21:02 Dose: 2 mg Documented By: ISIDRA Quetiapine Fumarate (Quetiapine Fumarate 25 Mg Tablet) 25 mg PO BID [facility] Last Admin: 10/11/22 07:58 Dose: 25 mg Documented By: CRISTIANA Simethicone (Simethicone 80 Mg Tab.Chew) 80 mg PO QIDWMHS [facility] Last Admin: 10/11/22 11:42 Dose: 80 mg Documented By: CRISTIANA Sodium Chloride (0.9 % Sodium Chloride Flush 3 Ml Syringe) 3 ml IVFLUSH QSHIFT [facility] Last Admin: 10/11/22 07:58 Dose: Not Given Documented By: CRISTIANA Non-Admin Reason: IV Running Spironolactone (Spironolactone 25 Mg Tablet) 50 mg PO DAILY [facility]; Protocol Last Admin: 10/11/22 07:58 Dose: 50 mg Documented By: CRISTIANA Sucralfate (Sucralfate 1 Gm Tablet) 1 gm PO QIDACHS [facility] Last Admin: 10/11/22 11:42 Dose: 1 gm Documented By: CRISTIANA Vitamin D (Cholecalciferol (Vitamin D3) 25 Mcg Tablet) 50 mcg PO DAILY [facility] Last Admin: 10/11/22 07:57 Dose: 50 mcg Documented By: CRISTIANA Labs 10/11/22 06:59 10/11/22 05:40 Labs: Laboratory Results - last 24 hr 10/10/22 10/10/22 10/10/22 05:43 16:06 20:48 MCV MCH MCHC RDW Plt Count MPV Immature Gran % (Auto) Neut % (Auto) Lymph % (Auto) Waldo % (Auto) Eos % (Auto) Baso % (Auto) Lymph # (Auto) Waldo # (Auto) Eos # (Auto) Baso # (Auto) Abs Immat Gran (auto) Absolute Neuts (auto) Absolute Nucleated RBC Nucleated RBC % (auto) Smear Path Review Anion Gap Estim Creat Clear Calc Estimated GFR POC Glucose 208 H 146 H Random Glucose Calcium Total Bilirubin AST ALT Alkaline Phosphatase Total Protein Albumin 10/11/22 10/11/22 10/11/22 05:40 06:18 06:59 MCV 91.8 MCH 29.6 MCHC 32.3 RDW 14.7 Plt Count 144 L MPV 8.9 L Immature Gran % (Auto) 0.5 H Neut % (Auto) 45.7 Lymph % (Auto) 39.1 Waldo % (Auto) 10.5 Eos % (Auto) 3.7 Baso % (Auto) 0.5 Lymph # (Auto) 1.7 Waldo # (Auto) 0.5 Eos # (Auto) 0.2 Baso # (Auto) 0.0 Abs Immat Gran (auto) 0.02 Absolute Neuts (auto) 2.0 Absolute Nucleated RBC 0.000 Nucleated RBC % (auto) 0.0 Smear Path Review Anion Gap 9 L Estim Creat Clear Calc 97.8 Estimated GFR > 60 POC Glucose 123 H Random Glucose 123 H Calcium 7.1 L Total Bilirubin 1.3 H AST 77 H ALT 62 H Alkaline Phosphatase 171 H Total Protein 4.7 L Albumin 2.4 L 10/11/22 10/11/22 08:05 11:21 MCV MCH MCHC RDW Plt Count MPV Immature Gran % (Auto) Neut % (Auto) Lymph % (Auto) Waldo % (Auto) Eos % (Auto) Baso % (Auto) Lymph # (Auto) Waldo # (Auto) Eos # (Auto) Baso # (Auto) Abs Immat Gran (auto) Absolute Neuts (auto) Absolute Nucleated RBC Nucleated RBC % (auto) Smear Path Review Anion Gap Estim Creat Clear Calc Estimated GFR POC Glucose 120 H 166 H Random Glucose Calcium Total Bilirubin AST ALT Alkaline Phosphatase Total Protein Albumin Microbiology Microbiology Results: Microbiology 10/09/22 09:35 Gram Stain - Final Abdomen - Abdominal Routine Culture - Final No growth after 2 days Anaerobic Culture - Preliminary No growth to date. 10/08/22 21:29 Gram Stain - Final Paracentesis Fluid Anaerobic Culture - Preliminary No growth to date. Body Fluid Culture - Final No growth after 2 days 10/09/22 Unknown Urine Culture - Final Urine clean catch - Urine davis top Escherichia coli 10/08/22 18:40 Blood Culture - Preliminary Blood - Venous No growth after 48 hours. 10/08/22 18:08 Blood Culture - Preliminary Blood - Venous No growth after 48 hours. Assessment and Plan (1) Esophageal varices with bleeding: Status: Acute Plan 52-year-old male with past medical history of HSV, with liver cirrhosis presents to the hospital with complaints of abdominal distension abdominal pain, GI bleed. Abdominal pain. Secondary to significant ascites from HCV liver disease status post paracentesis with 1.8 L of fluid removed 10/09, cytology and micro sent - no growth to date. Moderate discomfort and distension, positional dyspnea - will order repeat paracentesis spironolactone 50 mg started this admission, will add furosemide 20 mg tomorrow per Gastroenterology Continue Rocephin to prevent SBP, total 5 days Acute GI bleed Multiple episodes of bright red blood per rectum at home s/p 1 unit of packed red blood cells. Status post EGD with findings of esophageal varices (banded), portal hypertensive gastropathy and gastric ulcer (chronicity unknown) H/H stable s/p banding Plan as per GI: -octreotide for 72 hours -high-dose PPI pantoprazole 40 mg b.i.d. -stop NSAIDs -Carafate for 2 weeks to reduce risk of post banding ulceration -continue low-dose carvedilol -repeat EGD in 2-4 weeks -Diet advanced to diabetic diet Acute normocytic anemia- stable Secondary to rectal bleeding Status post transfusion of 1 unit of packed red blood cells Status post EGD, no active bleeding Follow CBC - will check iron studies, iron infusion per GI recommendation UTI Rocephin UC- e.coli 10-50 cfu Diabetes SS, ada diet Mood disorder continue home medications DVT prophylaxis:? SCDs Attending Dr. Man Continue hospitalization for treatment of GI bleed requiring IV medications and very close monitoring for any further bleeding Time Spent With Patient Time: Total time managing care of this patient today ____ minutes. Quality Stroke Does the patient have a stroke diagnosis?: No VTE Prior VTE?: No VTE Risk Level:: Medical - moderate - high VTE Device Contraindication: Treatment Not Indicated VTE Drug Contraindication: N/A - Med Ordered
[2022-10-11 12:36] LABS: Iron 26 mcg/dL (45-160); Percent Iron Saturation 10 % (15-50); Total Iron Binding Capacity 258 mcg/dL (228-428); Unsaturated Iron Binding 232 ug/dL
[2022-10-11 12:48] LABS: Ferritin 59 ng/mL (20-250)
[2022-10-11] MEDS: Iron Sucrose Complex 200 MG in 0.9 % Sodium Chloride 100 ML 440 MG IV (13:08)
[2022-10-11] MEDS: Lidocaine HCl 1 % MPF 5 ML VIAL SUBCUT (15:44)
[2022-10-11 16:00] VITALS: BP 152/73; PULSE 82; RESP 18; TEMP 36.7; O2SAT 97
[2022-10-11 16:43] LABS: Glucose, Whole Blood 188 mg/dL (60-115)
[2022-10-11 19:14] VITALS: BP 148/63; PULSE 84; RESP 20; TEMP 36.6; O2SAT 97
[2022-10-11 20:40] LABS: Glucose, Whole Blood 256 mg/dL (60-115)
[2022-10-11] MEDS: Insulin Glargine,Hum.rec.anlog 100 UNIT/ML 10 ML VIAL 35 UNIT SUBCUT (21:00)
[2022-10-11] MEDS: Prazosin HCL 1 MG CAPSULE 2 MG PO (21:01)
[2022-10-11] MEDS: 0.9 % Sodium Chloride Flush 3 ML SYRINGE IVFLUSH (21:01)
[2022-10-11 23:24] VITALS: BP 117/54; PULSE 84; RESP 20; TEMP 37.1; O2SAT 95
[2022-10-12] MEDS: Octreotide Acetate 500 MCG in 0.9 % Sodium Chloride 500 ML 50.1 MCG IVCONT (03:23)
[2022-10-12 03:24] VITALS: BP 132/69; PULSE 81; RESP 18; TEMP 36.9; O2SAT 93
[2022-10-12] MEDS: Pantoprazole Sodium 40 MG/10 ML VIAL IVPUSH (05:46)
[2022-10-12] MEDS: cefTRIAXone sodium 1 GM in 0.9 % Sodium Chloride 50 ML IV (05:46)
[2022-10-12 06:43] LABS: Hematocrit 23.2 % (42.0-52.0); Hemoglobin 7.4 g/dl (14.0-18.0); Mean Corpuscular HGB Conc 31.9 g/dl (31.0-36.0); Mean Corpuscular Hemoglobin 29.1 pg (27.0-33.0); Mean Corpuscular Volume 91.3 fL (80.0-98.0); Mean Platelet Volume 9.3 fL (9.4-12.4); Platelet Count 146 X10*3/uL (160-400); Red Blood Count 2.54 X10*6/uL (4.60-5.80); Red Cell Distribution Width 15.1 % (11.0-16.0); White Blood Count 4.7 X10*3/uL (4.8-10.8)
[2022-10-12 08:04] LABS: Glucose, Whole Blood 142 mg/dL (60-115)
[2022-10-12] MEDS: QUEtiapine Fumarate 25 MG TABLET PO (08:15)
[2022-10-12] MEDS: Simethicone 80 MG TAB.CHEW PO ×2 (08:15→12:39)
[2022-10-12] MEDS: Cholecalciferol (Vitamin D3) 25 MCG TABLET 50 MCG PO (08:16)
[2022-10-12] MEDS: Sucralfate 1 GM TABLET PO ×2 (08:16→12:39)
[2022-10-12] MEDS: Spironolactone 25 MG TABLET 50 MG PO (08:16)
[2022-10-12] MEDS: Furosemide 20 MG TABLET PO (08:16)
[2022-10-12] MEDS: carvediloL 3.125 MG TABLET PO (08:17)
[2022-10-12 08:22] VITALS: BP 103/49; PULSE 73; RESP 20; TEMP 37.2; O2SAT 92
[2022-10-12] MEDS: Buprenorphine/Naloxone 8/2 mg FILM 1 FILM SUBLINGUAL (09:02)
--- NOTE | 2022-10-12 09:54 | P.DS_ITS ---
DS: Providers Provider Date of Service: 10/12/22 Date of admission: 10/08/22 22:03 Date of discharge: 10/12/22 Primary care physician: Kierra Flanagan MD Consults: 10/08/22 21:50 Consult to Gastroenterology Routine Consulting Provider: Milton Hyatt Reason for consultation: GI bleed, Liver cirrhosis Has provider been notified: No Attending physician on discharge: Amrik Man Discharging clinician: Sandi Villa DS: Diagnosis Discharge Diagnosis (1) Esophageal varices with bleeding: Status: Acute (2) Gastric ulcer: Status: Acute DS: Summary Hospital Course Hospital Course: From H&P on day of admission 52-year-old male [place]-speaking, history is obtained with the help of an demurrage agent who comes into the hospital with complaints of abdominal pain, distension, as well as bleed.? Patient states that for the past 2 weeks he has had progressively worsening abdominal pain, and throughout the 2 weeks he had few days of bright red blood per rectum.? He describes the abdominal pain is severe, constant, diffuse, nonradiating, no alleviating or exacerbating factors.? He has also noticed increased distention of his abdomen.? He denies any headache or change in vision, he has nausea with no vomiting, reports diarrhea, several episodes a day, reports blood in the diarrhea but that has now resolved.? Feels chills with no fever.? He is also complaining of urinary symptoms including dysuria as well as frequency that started several days ago.? He is also complaining of lower extremity edema. Of note patient has history of liver disease secondary to hepatitis-C, denies history of alcohol abuse, diabetes, hypertension, HLD, bipolar disorder, as well as major depression On arrival to the ED patient found to have a heart rate of 114 Labs are significant for WBC count of 6.1, hemoglobin of 7.0 with a baseline of 13 in April 2022, hematocrit 21.3, total bili of 1.3, direct bili of 0.6, AST of 81, ALT of 73, alk-phos of 180 which seem to be around his baseline, albumin of 2.9, stool occult blood negative INR of 1.1 Patient had a diagnostic paracentesis which was negative for SBP, ?Patient being transfuse 1 unit of PRBC in being admitted for further management Abdomen pelvic CT shows cirrhosis with diffuse ascites, prominent collateral vessels Acute blood loss anemia secondary to Acute GI bleed related to esophageal varices Multiple episodes of bright red blood per rectum at home. s/p 1 unit of packed red blood cells. Seen by GI and underwent EGD with findings of esophageal varices (banded), portal hypertensive gastropathy and gastric ulcer (chronicity unknown). H/H stable s/p banding. Plan as per GI: Treated with octreotide for 72 hours. Started on high-dose PPI pantoprazole 40 mg b.i.d. Carafate for 2 weeks to reduce risk of post banding ulceration. Started on low dose carvedilol. Recommend to stop NSAID use. will need repeat EGD in 2-4 weeks. Iron studies were check and iron levels were low, he recieved two infusions of IV iron. Abdominal pain.Secondary to significant ascites from chronic untreated HCV liver disease. status post paracentesis with 1.8 L of fluid removed 10/09, cytology and micro sent? - no growth to date. and therapeutic tap 10/11 with 4L removed. Started on spironolactone 50 mg and furosemide 20 mg.Continue Rocephin to prevent SBP, total 5 days - will be discharged to complete course with oral antitibiotics. GI also recommended low-dose pravastatin to reduce portal pressure. Recommend repeat CBC, BMP in the next 1 week. Patient should call to schedule follow-up appointment with GI. Will likely need repeat paracentesis in the near future. will need outpatient triple phase CT scan to evaluate for hepatocellular carcinoma. Will need outpatient follow-up for treatment of chronic untreated hepatitis-C. Time Spent with Patient Time attestation: Total time managing care of this patient today ____ minutes. Discharge coordination time: Greater than 30 minutes Quality: Safe Use of Opioids Does Pt have an Active Cancer Diagnosis on the Problem List?: No Quality: Stroke Does the patient have a stroke diagnosis?: No Physical Exam Vital Signs: Vital Signs: Last Vital Signs Temp 98.9 F 10/12/22 08:22 Pulse 73 10/12/22 08:22 Resp 20 10/12/22 08:22 BP 103/49 L 10/12/22 08:22 Pulse Ox 92 10/12/22 08:22 O2 Del Method Room Air 10/12/22 08:22 BMI result Body Mass Index 32.9 Const: General: comfortable, no acute distress, alert and awake Nutritional Appearance: average body habitus Orientation/consciousness: patient oriented x3 Resp: Effort & Inspection: normal respiratory effort and able to speak in complete sentences Cardio: Rate: regular rate Heart sounds: S1 normal heart sound present and S2 normal heart sound present GI: Other: abdomen softly distended Percussion: Yes Fluid wave present Neuro: General: patient oriented x3 and CN's II-XI intact bilaterally Extrem: Other: trace leg edema DS: Data Data Completed and Pending Completed studies during hospitalization [Text1]: Pending at discharge 10/09/22 07:57 Surgical Path [Surgical] [PTH] Routine Pending studies at discharge: Pending at discharge 10/09/22 07:57 Cytology [PTH] Stat Labs on day of discharge: Laboratory Results - last 24 hr 10/10/22 10/11/22 10/11/22 05:43 05:40 11:21 WBC RBC Hgb Hct MCV MCH MCHC RDW Plt Count MPV Absolute Nucleated RBC Nucleated RBC % (auto) Smear Path Review POC Glucose 166 H Iron 26 L TIBC 258 % Saturation 10 L Unsat Iron Binding 232 Ferritin 59 10/11/22 10/11/22 10/12/22 16:40 20:34 05:33 WBC 4.7 L RBC 2.54 L Hgb 7.4 L Hct 23.2 L MCV 91.3 MCH 29.1 MCHC 31.9 RDW 15.1 Plt Count 146 L MPV 9.3 L Absolute Nucleated RBC 0.000 Nucleated RBC % (auto) 0.0 Smear Path Review POC Glucose 188 H 256 H Iron TIBC % Saturation Unsat Iron Binding Ferritin 10/12/22 07:29 WBC RBC Hgb Hct MCV MCH MCHC RDW Plt Count MPV Absolute Nucleated RBC Nucleated RBC % (auto) Smear Path Review POC Glucose 142 H Iron TIBC % Saturation Unsat Iron Binding Ferritin Preliminary micro results at discharge 10/09/22 09:35 Anaerobic Culture - Preliminary Abdomen - Abdominal No growth to date. 10/08/22 21:29 Anaerobic Culture - Preliminary Paracentesis Fluid No growth to date. 10/08/22 18:40 Blood Culture - Preliminary Blood - Venous No growth after 48 hours. 10/08/22 18:08 Blood Culture - Preliminary Blood - Venous No growth after 48 hours. Discharge Plan Discharge Anticipated Discharge Date/Time: 10/12/22 09:58 Patient Disposition: Home, Self-Care Discharge Diagnosis: acute blood loss anemia secondary to acute GI bleed related to esophageal varices abdominal ascites related to liver cirrhosis from untreated HCV gastric ulcer Referrals: Milton Hyatt MD [Physician] - 1 Week Kierra Ulloa MD [Primary Care Provider] - 1 Week Discharge Medications: New carvedilol 3.125 mg Tablet 3.125 mg PO BID 30 Days Qty: 60 0RF Protocol: Hold for SBP/HR < HOLD for SBP < : 90 HOLD for HR < : 60 spironolactone 25 mg Tablet 50 mg PO DAILY 30 Days Qty: 60 0RF Protocol: Hold for SBP< HOLD for SBP < : 90 furosemide 20 mg Tablet 20 mg PO DAILY 30 Days Qty: 30 0RF Protocol: Hold for SBP< HOLD for SBP < : 90 pantoprazole 40 mg tablet,delayed release (DR/EC) 40 mg PO BID 30 Days Qty: 60 0RF sucralfate [Carafate] 1 gram tablet 1 g PO QIDACHS 14 Days Qty: 56 0RF cefuroxime axetil 500 mg tablet 500 mg PO BID 1 Days Qty: 2 0RF pravastatin 20 mg tablet 20 mg PO BEDTIME 30 Days Qty: 30 0RF Continued cholecalciferol (vitamin D3) 50 mcg (2,000 unit) capsule 50 mcg PO DAILY 90 Days Qty: 90 1RF clotrimazole-betamethasone 1-0.05 % cream 1 appl topical BID 14 Days Qty: 45 1RF lidocaine 5 % adhesive patch,medicated 1 patch topical DAILY 30 Days Qty: 30 4RF Rx Instructions: leave on most painful area for up to 12 hrs varenicline 0.5 mg tablet 0.5 mg PO BID 30 Days Qty: 60 0RF Rx Instructions: administer on days 4, 5, 6, and 7 of therapy buprenorphine-naloxone 8-2 mg film 8 mg sublingual TID prazosin 2 mg capsule 2 mg PO BEDTIME insulin glargine [Lantus U-100 Insulin] 100 unit/mL solution 35 unit subcut BEDTIME clonazepam 0.5 mg tablet 0.5 mg PO DAILY PRN (Reason: Anxiety) quetiapine 50 mg tablet 25 mg PO BID hydrocortisone [Anti-Itch (HC)] 1 % cream 1 appl topical TID PRN (Reason: skin irritation) 14 Days Qty: 28.4 1RF Discontinued losartan 100 mg tablet 100 mg PO DAILY 90 Days Qty: 90 1RF ibuprofen 800 mg tablet 800 mg PO TID Qty: 90 2RF No Action (DME) FreeStyle Lite Strips Strip See Rx Instructions .ROUTE .MEDSUPPLY Qty: 100 11RF Rx Instructions: As directed twice a day (DME) lancets [FreeStyle Lancets] 28 gauge misc See Rx Instructions .ROUTE .MEDSUPPLY Qty: 100 11RF Rx Instructions: As directed twice a day (DME) blood-glucose meter [FreeStyle [place]] Kit See Rx Instructions .ROUTE .MEDSUPPLY Qty: 1 0RF Rx Instructions: As directed (DME) OneTouch Ultra Test Strip See Rx Instructions .Route Qty: 100 6RF Rx Instructions: Use 1 lancet twice a day (DME) insulin syringe-needle U-100 [BD Insulin Syringe Ultra-Fine] 0.5 mL 31 gauge x 5/16 syringe See Rx Instructions .ROUTE .MEDSUPPLY Qty: 100 4RF Rx Instructions: Use 1 syringe needle once a day furosemide [Lasix] 80 mg tablet 80 mg PO DAILY 7 Days Qty: 7 0RF (DME) pen needle, diabetic 31 gauge x 3/16 needle See Rx Instructions subcut DAILY Qty: 50 Rx Instructions: As directed (DME) blood-glucose meter [OneTouch Ultra2 Meter] Kit See Rx Instructions .Route Qty: 1 0RF Rx Instructions: As directed (DME) lancets [OneTouch UltraSoft Lancets] Misc See Rx Instructions .Route Qty: 100 6RF Rx Instructions: Use 1 lancet twice a day (DME) nonslip shower mat See Rx Instructions .Route .MEDSUPPLY Qty: 1 0RF Rx Instructions: As directed (DME) Shower Chair Misc See Rx Instructions .Route Qty: 1 0RF Rx Instructions: As directed (DME) handheld shower See Rx Instructions .Route .MEDSUPPLY Qty: 1 0RF Rx Instructions: As directed Discharge Orders: Discharge Order (Routine); Ordered 10/12/22 Ordered By: Sandi Villa Diet: Advance to usual diet Activity on Discharge: As tolerated Stand Alone Forms: Patient Portal Discharge page Other Ambulatory Orders: Basic Metabolic Panel (Routine) Timeframe: 1 Week Facility: [facility] - Location: Laboratory Ordered By: Sandi Villa Complete Blood Count no Diff (Routine) Timeframe: 1 Week Facility: [facility] - Location: Laboratory Ordered By: Sandi Villa Care Plan Goals: see below Health Concerns: acute blood loss anemia secondary to acute GI bleed related to esophageal varices abdominal ascites related to liver cirrhosis from untreated HCV gastric ulcer Plan of Treatment: For your ascites, you have been started on lasix and spironolactone to help control re-accumulation of fluid. you will likely need another paracentesis to remove more fluid from your abdomen, call the GI office to schedule Call to schedule a follow-up appointment with GI. will need follow up CT scan and treatment for hepatitis complete one more day of antibiotics for esophageal varices, you been started on Coreg. you should also take carafate as prescribed for the next two weeks for gastric ulcer you have been started on pantoprazole. avoid NSAIDs completely (ibuprofen, aspirin, motrin, etc) - instead can use Tylenol for pain (up to 2g of Tylenol total from all sources daily) stop taking losartan if you develop any bleeding return to the nearest ED Repeat blood work in the next one week Assessment: see discharge summary Discharge Date/Time: 10/12/22 13:00
[2022-10-12 11:00] VITALS: BP 135/67
[2022-10-12 11:17] LABS: Glucose, Whole Blood 149 mg/dL (60-115)
[2022-10-12] MEDS: Iron Sucrose Complex 200 MG in 0.9 % Sodium Chloride 100 ML 440 MG IV (12:04)
[2022-10-12 12:23] VITALS: BP 145/80; PULSE 79; RESP 20; TEMP 37.2; O2SAT 95
--- NOTE | 2022-10-12 12:23 | MHC.CM.PN ---
IMM 10/12/22 Patient is discharged to home selfcare. Patient arranged for transport home.
== END 2022-10-12 13:00 | disposition home or self-care (01) | DRG 432 ==
LOC: HO.ED 21:35 → HO.EDOVER 22:35 → HO.S3 10-09 07:37
PROVIDERS: Internal Medicine Gastroenterology; Nurse Practitioner Acute Care; Physician Assistant; Radiology Diagnostic Radiology; Admitting Provider Internal Medicine; Emergency Provider Emergency Medicine; PCP Internal Medicine; Visit Provider Physician Assistant Medical
PROC: 0W9G3ZZ Drainage of Peritoneal Cavity, Percutaneous Approach (ICD-10-PCS; principal; 2022-10-09 09:00)
PROC: 0DJ08ZZ Inspection of Upper Intestinal Tract, Via Natural or Artificial Opening Endoscopic (ICD-10-PCS; CPT 43235; principal; 2022-10-09 13:50)
DX: K74.60 Unspecified cirrhosis of liver (principal); I85.11 Secondary esophageal varices with bleeding; K25.4 Chronic or unspecified gastric ulcer with hemorrhage; F33.1 Major depressive disorder, recurrent, moderate; R18.8 Other ascites; K76.6 Portal hypertension; N39.0 Urinary tract infection, site not specified; D62 Acute posthemorrhagic anemia; B18.2 Chronic viral hepatitis C; I10 Essential (primary) hypertension; K31.89 Other diseases of stomach and duodenum; E11.9 Type 2 diabetes mellitus without complications; E78.5 Hyperlipidemia, unspecified; F17.210 Nicotine dependence, cigarettes, uncomplicated; Z71.6 Tobacco abuse counseling; Z79.4 Long term (current) use of insulin; Z79.899 Other long term (current) drug therapy
CPT/HCPCS: 36415; 49083; 74176; 80048; 80053; 80076; 81001; 82042; 82150; 82272; 82728; 82945; 82947; 83540; 83605; 83615; 83735; 83880; 83986; 84155; 84157; 85014; 85018; 85025; 85027; 85610; 85730; 86850; 86900; 86901; 86923; 87040; 87070; 87073; 87086; 87088; 87116; 87186; 87205; 87206; 88112; 88305; 88342; 89051; 99285; J0696; J1650; J1756; J2270; J2354; J2405; J2765; P9016

== ENCOUNTER 2022-10-13 09:00 | Emergency (ER) | payer OTHER, SELFPAY ==
[2022-10-13 09:06] VITALS: BP 140/75; BP 160/90; PULSE 90; RESP 20; TEMP 36.6; O2SAT 96; O2SAT 97; BMI 37.2
--- NOTE | 2022-10-13 09:16 | PC.NURSE ---
Pt arrived via EMS, recently discharged from [facility] [place], for GI bleed d/t varices, abdominal distention noted, LLE swelling noted, no redness or tenderness. Penile swelling also noted. Pt reporting numbness when extremities are touched but no pain noted. he is SOB when talking, denies fevers. Awaiting physician orders at this time
--- NOTE | 2022-10-13 10:29 | ED_ITS ---
HPI - General Adult General Chief complaint: General Medical Stated complaint: ABDOMINAL PAIN/LE SWELLING Time Seen by Provider: 10/13/22 09:47 Source: patient Mode of arrival: EMS Limitations: language barrier (Maori speaking only, trailer technician used) History of Present Illness HPI narrative: 52-year-old male with history diabetes, hypertension, cirrhosis of the liver secondary to hepatitis-C who was recently hospitalized from 10/08/2022 until 10/12/2022 for esophageal variceal bleed, gastric ulcer, ascites secondary to cirrhosis, anemia required transfusions. Patient had an upper GI which review esophageal varices which were banded, portal hypertensive with gastropathy gastric ulcer. Received blood transfusions and iron transfusions. Patient was discharged on medications including furosemide 20 mg daily and spironolactone 50 mg daily. The patient was released from the hospital yesterday. He states that today, he noticed increased swelling in his lower extremities, swelling of his penis and scrotum bilaterally. He states that he took his diuretics and has only urinated twice this morning. He was concerned about the significant amount of swelling in his legs and general area so came in for evaluation. He denied abdominal pain, fever, chills, nausea, vomiting, diarrhea or bloody stools Related Data Home Medications Medication Instructions Recorded Confirmed pen needle, diabetic 31 gauge x #50 ea 06/29/20 10/04/2209/06 clonazepam 0.5 mg tablet 0.5 mg PO DAILY PRN Anxiety 08/15/21 10/09/22 quetiapine 50 mg tablet 25 mg PO BID 08/15/21 10/09/22 buprenorphine 8 mg-naloxone 2 mg 8 mg sublingual TID 10/09/22 10/09/22 sublingual film insulin glargine 100 unit/mL 35 unit subcut BEDTIME 10/09/22 10/09/22 subcutaneous solution (Lantus U-100 Insulin) prazosin 2 mg capsule 2 mg PO BEDTIME 10/09/22 10/09/22 Previous Rx's Medication Instructions Recorded blood sugar diagnostic (FreeStyle #100 ea 04/12/20 Lite Strips) lancets 28 gauge (FreeStyle #100 ea 04/12/20 Lancets) blood-glucose meter (FreeStyle #1 ea 08/11/21 [place] kit) blood-glucose meter (OneTouch #1 ea 02/22/22 Ultra2 Meter kit) lancets (OneTouch UltraSoft #100 ea 08/15/21 Lancets) hydrocortisone 1 % topical cream 1 appl topical TID PRN skin 12/21/21 (Anti-Itch (hydrocortisone)) irritation 2 weeks #28.4 grams cholecalciferol (vitamin D3) 50 50 mcg PO DAILY 90 days #90 caps 05/04/22 mcg (2,000 unit) capsule Shower Chair #1 ea 05/22/22 handheld shower #1 ea 05/22/22 nonslip shower mat #1 ea 05/22/22 blood sugar diagnostic (OneTouch #100 ea 08/05/22 Ultra Test strips) clotrimazole-betamethasone 1 1 appl topical BID 2 weeks #45 09/19/22 %-0.05 % topical cream grams insulin syringe-needle U-100 0.5 #100 ea 09/19/22 mL 31 gauge x 5/16 (BD Insulin Syringe Ultra-Fine) lidocaine 5 % topical patch 1 patch topical DAILY 30 days #30 09/19/22 ea varenicline 0.5 mg tablet 0.5 mg PO BID 30 days #60 tabs 10/07/22 carvedilol 3.125 mg tablet 3.125 mg PO BID 30 days #60 tabs 10/12/22 cefuroxime axetil 500 mg tablet 500 mg PO BID 1 day #2 tabs 10/12/22 furosemide 20 mg tablet 20 mg PO DAILY 30 days #30 tabs 10/12/22 pantoprazole 40 mg tablet,delayed 40 mg PO BID 30 days #60 tabs 10/12/22 release pravastatin 20 mg tablet 20 mg PO BEDTIME 30 days #30 tabs 10/12/22 spironolactone 25 mg tablet 50 mg PO DAILY 30 days #60 tabs 10/12/22 sucralfate 1 gram tablet (Carafate) 1 g PO QIDACHS 14 days #56 tabs 10/12/22 furosemide 80 mg tablet (Lasix) 80 mg PO DAILY 7 days #7 tabs 10/13/22 Allergies Allergy/AdvReac Type Severity Reaction Status Date / Time lisinopril AdvReac Intermediate Headache Verified 10/04/22 11:03 varenicline AdvReac Intermediate suicidal Verified 10/04/22 11:03 ideation Review of Systems Review of Systems: Yes all other systems are reviewed and are negative [facility] Past Medical History [facility] Narrative: Social history: He denies alcohol use. He does smoke cigarettes. He denies drug use. He states that he stopped using injection heroin 16 years prior knees on Suboxone. Medical History Acid reflux Bipolar disorder Diabetes mellitus Essential hypertension History of substance abuse Left knee pain Moderate recurrent major depression Pure hypercholesterolemia Right knee pain Transaminitis Surgical History No pertinent past surgical history Family History Family History Father CVD (cardiovascular disease) Diabetes Maternal Grandmother Diabetes Brother Respiratory failure Asthma Sister No problems noted. Daughter No problems noted. Family/Other Mental health disorder Social History Social History Household Members: Spouse Housing: Apartment Do you presently have visiting nurse or other home services: No Alcohol intake: never Patient Tobacco Use Status: Current everyday Tobacco user Tobacco use type: Cigarette Cigarette Packs Per Day: 1 Cigarettes Per Day: 20.0 Years Smoked: 40 Smoked in Last 30 Days: Yes e-Cigarette/Vaping Use: Currently Using Second Hand Smoke Exposure: No Use of substances other than those prescribed or required for medical reasons: No Advance Directives: No service: No Current occupational status: unemployed Current occupation: Right Handed Cognitive needs: Yes Hearing needs: No Vision needs: No Physical Exam ED Vital Signs: Vital Signs - 24 hr 10/13/22 09:06 Temperature 97.9 F Pulse Rate 90 Respiratory Rate 20 Blood Pressure 140/75 H Pulse Oximetry 97 Oxygen Delivery Method Room Air BMI result Body Mass Index 37.2 Const Other: Awake, alert, male patient, pleasant, cooperative, no distress, answers all questions appropriately [facility] Head: Yes normal to inspection, Yes normocephalic and Yes atraumatic Ears: external ears normal General nose exam: Normal external nose present Face and sinus: Yes normal facial exam Mouth: Normal oral and palatal mucosa present Throat: Yes posterior oropharynx normal Eyes General: appearance normal, both eyes and all related structures Pupils: Equal, round and reactive pupils present Neck Neck: Yes normal visual inspection, Yes no lymphadenopathy, Yes trachea midline and Yes supple Chest Chest palpation & inspection: normal inspection of the chest and normal palpation of entire chest wall Resp Effort & Inspection: normal respiratory effort and able to speak in complete sentences Auscultation: clear to auscultation bilaterally Cardio Rate: regular rate Rhythm: regular rhythm Heart sounds: S1 normal heart sound present, S2 normal heart sound present and no murmurs GI Other: Markedly distended abdomen secondary to ascites, diminished breath sounds, patient has a bandages to his left lower quadrant which does not appear to be leaking ascites fluid. Patient has no abdominal tenderness. Other: Patient has edema of his penis and scrotum bilateral Skin General skin exam: no rashes or lesions noted Neuro Cranial nerves: Yes CN's II-XII intact bilaterally and Yes Equal, round and reactive pupils present Cognition (Neuro): normal cognition Motor exam (neuro): 5/5 motor strength present throughout Extrem Other: Patient has 2+ pitting edema to his lower extremities which is symmetric Psych Appearance: grossly normal Speech and movement: Normal speech and movement present Affect: normal affect Attitude: cooperative Thought process: Normal thought process present Thought content: Normal thought content present Medical Decision Making Medical Decision Making MDM Narrative: 52-year-old male recently hospitalized and discharged yesterday for upper GI bleed secondary to esophageal varices and gastric ulcers, diagnosed with ascites secondary to hepatitis C-patient states that he had 8 L of fluid drained from his abdomen, who returns to emergency department for evaluation of swelling of his scrotum and penis as well as increased swelling of his lower extremities. In reviewing the patient's record, the patient was just started on diuretics (furosemide 20 mg daily and spironolactone 50 mg daily). The patient's examination is consistent with ascites, edema of the penis and scrotum as well as lower extremity edema. I do not think the patient needs any further evaluation at this time however I do think that he may benefit from a higher dose of furosemide for at least 1 week. I did discuss this with him. The patient was started on furosemide 80 mg once a day for 1 week. He was advised to go back to 20 mg once a day after he completes this burst dose. I also advised him to continue taking the spironolactone. I did tell the patient that needs to restrict his fluid intake. The patient was seen by our customer liaison Dr. Hyatt and he will need to follow-up for further management of his ascites. Differential Diagnosis Differential diagnosis includes was not limited to ascites, peripheral edema, anasarca Discharge Plan Discharge Clinical Impression: Edema of penis, Ascites, Edema of scrotum, Chronic hepatitis B with cirrhosis Patient Disposition: Home, Self-Care Instructions: Ascites (ED) Additional Instructions: The fluid in your belly, legs, penis, and scrotum is caused by your liver failure (cirrhosis) which is most likely caused by your chronic hepatitis C. You need to restrict the amount of fluid that you drink daily. I am increasing your water pill, furosemide (Lasix)from 20 mg once a day to 80 mg once a day for 1 week to try to get some fluid off your body. After 1 week go back to the 20 mg once a day. You are on a 2nd water pill called spironolactone. Continue taking this medication as prescribed. In the hospital you were seen by the customer liaison, , call his of [place] for follow-up appointment within 1-2 weeks You may need to have more ascites fluid drained from her abdomen and Dr. Hyatt can arrange this with our radiology department. Follow-up with your doctor in 2 days. Please return to the emergency department if your symptoms get worse or if you develop any symptoms that are concerning to you. Prescriptions: New furosemide [Lasix] 80 mg tablet 80 mg PO DAILY 7 Days Qty: 7 0RF No Action (DME) FreeStyle Lite Strips Strip See Rx Instructions .ROUTE .MEDSUPPLY Qty: 100 11RF Rx Instructions: As directed twice a day (DME) lancets [FreeStyle Lancets] 28 gauge misc See Rx Instructions .ROUTE .MEDSUPPLY Qty: 100 11RF Rx Instructions: As directed twice a day (DME) blood-glucose meter [FreeStyle [place]] Kit See Rx Instructions .ROUTE .MEDSUPPLY Qty: 1 0RF Rx Instructions: As directed cholecalciferol (vitamin D3) 50 mcg (2,000 unit) capsule 50 mcg PO DAILY 90 Days Qty: 90 1RF (DME) OneTouch Ultra Test Strip See Rx Instructions .Route Qty: 100 6RF Rx Instructions: Use 1 lancet twice a day clotrimazole-betamethasone 1-0.05 % cream 1 appl topical BID 14 Days Qty: 45 1RF lidocaine 5 % adhesive patch,medicated 1 patch topical DAILY 30 Days Qty: 30 4RF Rx Instructions: leave on most painful area for up to 12 hrs (DME) insulin syringe-needle U-100 [BD Insulin Syringe Ultra-Fine] 0.5 mL 31 gauge x 5/16 syringe See Rx Instructions .ROUTE .MEDSUPPLY Qty: 100 4RF Rx Instructions: Use 1 syringe needle once a day varenicline 0.5 mg tablet 0.5 mg PO BID 30 Days Qty: 60 0RF Rx Instructions: administer on days 4, 5, 6, and 7 of therapy buprenorphine-naloxone 8-2 mg film 8 mg sublingual TID prazosin 2 mg capsule 2 mg PO BEDTIME insulin glargine [Lantus U-100 Insulin] 100 unit/mL solution 35 unit subcut BEDTIME carvedilol 3.125 mg Tablet 3.125 mg PO BID 30 Days Qty: 60 0RF Protocol: Hold for SBP/HR < HOLD for SBP < : 90 HOLD for HR < : 60 spironolactone 25 mg Tablet 50 mg PO DAILY 30 Days Qty: 60 0RF Protocol: Hold for SBP< HOLD for SBP < : 90 furosemide 20 mg Tablet 20 mg PO DAILY 30 Days Qty: 30 0RF Protocol: Hold for SBP< HOLD for SBP < : 90 pantoprazole 40 mg tablet,delayed release (DR/EC) 40 mg PO BID 30 Days Qty: 60 0RF sucralfate [Carafate] 1 gram tablet 1 g PO QIDACHS 14 Days Qty: 56 0RF cefuroxime axetil 500 mg tablet 500 mg PO BID 1 Days Qty: 2 0RF pravastatin 20 mg tablet 20 mg PO BEDTIME 30 Days Qty: 30 0RF (DME) pen needle, diabetic 31 gauge x 3/16 needle See Rx Instructions subcut DAILY Qty: 50 Rx Instructions: As directed clonazepam 0.5 mg tablet 0.5 mg PO DAILY PRN (Reason: Anxiety) quetiapine 50 mg tablet 25 mg PO BID (DME) blood-glucose meter [OneTouch Ultra2 Meter] Kit See Rx Instructions .Route Qty: 1 0RF Rx Instructions: As directed (DME) lancets [OneTouch UltraSoft Lancets] Misc See Rx Instructions .Route Qty: 100 6RF Rx Instructions: Use 1 lancet twice a day hydrocortisone [Anti-Itch (HC)] 1 % cream 1 appl topical TID PRN (Reason: skin irritation) 14 Days Qty: 28.4 1RF (DME) nonslip shower mat See Rx Instructions .Route .MEDSUPPLY Qty: 1 0RF Rx Instructions: As directed (DME) Shower Chair Misc See Rx Instructions .Route Qty: 1 0RF Rx Instructions: As directed (DME) handheld shower See Rx Instructions .Route .MEDSUPPLY Qty: 1 0RF Rx Instructions: As directed Referrals: Milton Hyatt MD [Physician] - 1 week (Follow-up for hepatitis-C cirrhosis with ascites, peripheral edema, scrotal and penile edema)
[2022-10-13 10:55] VITALS: BP 141/78; PULSE 77; RESP 18; O2SAT 98
== END 2022-10-13 11:03 | disposition home or self-care (01) ==
PROVIDERS: Emergency Provider Emergency Medicine Emergency Medical Services; PCP Internal Medicine
DX: N48.89 Other specified disorders of penis (principal); N50.89 Other specified disorders of the male genital organs; R18.8 Other ascites; K74.69 Other cirrhosis of liver; B18.1 Chronic viral hepatitis B without delta-agent; E11.9 Type 2 diabetes mellitus without complications; I10 Essential (primary) hypertension; E78.00 Pure hypercholesterolemia, unspecified; F17.210 Nicotine dependence, cigarettes, uncomplicated; F11.20 Opioid dependence, uncomplicated; Z79.4 Long term (current) use of insulin; Z79.02 Long term (current) use of antithrombotics/antiplatelets
CPT/HCPCS: 99283; 99284

== ENCOUNTER 2022-11-01 06:21 | Outpatient (REF) | payer OTHER, SELFPAY ==
[2022-11-01 06:43] LABS: MANUAL DIFF FLAG NO
[2022-11-01 06:54] LABS: Basophils Percent Auto 0.6 % (0-2); Eosinophils Absolute Auto 0.2 X10*3/uL (0.0-0.4); Eosinophils Percent Auto 4.9 % (0-4); Hematocrit 30.7 % (42.0-52.0); Hemoglobin 9.7 g/dl (14.0-18.0); Imm Gran Abs Auto 0.01 X10*3/uL (0.00-0.03); Imm Gran Pct Auto 0.3 % (0.0-0.4); Lymphocytes Absolute Auto 1.3 X10*3/uL (1.2-4.9); Lymphocytes Percent Auto 38.3 % (20-40); Mean Corpuscular HGB Conc 31.6 g/dl (31.0-36.0); Mean Corpuscular Hemoglobin 26.9 pg (27.0-33.0); Mean Corpuscular Volume 85.3 fL (80.0-98.0); Mean Platelet Volume 9.6 fL (9.4-12.4); Monocytes Absolute Auto 0.3 X10*3/uL (0.1-1.2); Monocytes Percent Auto 9.2 % (2-11); Neutrophils Absolute Auto 1.6 x10*3/uL (2.0-8.3); Neutrophils Percent Auto 46.7 % (45-73); Platelet Count 151 X10*3/uL (160-400); Red Cell Distribution Width 14.3 % (11.0-16.0); White Blood Count 3.5 X10*3/uL (4.8-10.8)
[2022-11-01 07:20] LABS: Alanine Aminotransferase 41 U/L (0-40); Albumin Level 3.1 g/dL (3.5-5.0); Alkaline Phosphatase 175 U/L (39-117); Anion Gap 11 (12-20); Aspartate Amino Transferase 57 U/L (5-37); Bilirubin Total 0.8 mg/dL (0.0-1.0); Blood Urea Nitrogen 9 mg/dL (9-16); Calcium 8.2 mg/dL (8.4-10.2); Carbon Dioxide 24 mmol/L (22-29); Chloride 113 mmol/L (96-108); Cholesterol 127 mg/dL; Estimated Glomerular Filt Rate > 60; Glucose Fasting 171 mg/dL (60-99); Glucose Random 171 mg/dL (60-115); HDL Cholesterol 38 mg/dL; Iron 22 mcg/dL (45-160); LDL Cholesterol Calculated 77 mg/dl; Percent Iron Saturation 7 % (15-50); Sodium 144 mmol/L (135-145); Total Iron Binding Capacity 308 mcg/dL (228-428); Total Protein 5.9 g/dL (6.5-8.0); Triglycerides 60 mg/dL; Unsaturated Iron Binding 286 ug/dL
[2022-11-01 07:52] LABS: Vitamin B12 837 pg/mL (200-900)
[2022-11-01 08:23] LABS: Vitamin D 25-OH Total 17.8 ng/mL (>30)
[2022-11-01 09:13] LABS: Creatinine Urine 161.81 mg/dL; Microalbumin Urine < 5.0 mg/L
[2022-11-02 09:24] LABS: HBS Num1 0.01 mIU/mL (0-7.99); HBsAGNum1 0.34 S/CO (0.00-0.99); Hepatitis B Surface Antigen Negative (Negative); ~Hepatitis B Surface Antibody NONREACTIVE (Nonreactive)
[2022-11-06 01:49] LABS: FIB-ALT 36 U/L (9-46); FIB-Alpha-2-Macroglobulin 228 mg/dL (106-279); FIB-Apolipoprotein A1 126 mg/dL (94-176); FIB-GGT 153 U/L (3-95); FIB-Haptoglobin 71 mg/dL (43-212); FIB-Total Bilirubin 0.6 mg/dL (0.2-1.2); Liver Fibrosis Score 0.63; Liver Fibrosis Stage F3; Nec Inflam Act Grade A0-A1; Nec Inflam Act Score 0.28
[2022-11-06 19:32] LABS: Hepatitis B Viral DNA Qn - cp <1.00 NOT DETECTED Log IU/mL (NOT DETECTED); Hepatitis B Viral DNA Qn-IU/mL <10 NOT DETECTED IU/mL (NOT DETECTED)
[2022-11-06 19:38] LABS: HCV Log PCR 6.16 Log IU/mL (NOT DETECTED); HepC Viral Load 1450000 IU/mL (NOT DETECTED)
== END 2022-11-01 06:22 | disposition home or self-care (01) ==
LOC: HO.LAB 06:21
PROVIDERS: Absent Provider Physician Assistant; PCP Internal Medicine; Visit Provider Internal Medicine
DX: Z00.00 Encounter for general adult medical examination without abnormal findings (principal); B19.20 Unspecified viral hepatitis C without hepatic coma; E78.5 Hyperlipidemia, unspecified; E11.9 Type 2 diabetes mellitus without complications; E55.9 Vitamin D deficiency, unspecified; D64.9 Anemia, unspecified
CPT/HCPCS: 36415; 80053; 80061; 81596; 82043; 82306; 82607; 82746; 83540; 85025; 86706; 87340; 87517; 87522

== ENCOUNTER 2022-11-12 11:28 | Emergency (ER) | payer OTHER, SELFPAY ==
[2022-11-12 12:01] VITALS: BP 109/66; PULSE 76; RESP 18; TEMP 36.9; O2SAT 98; BMI 37.9
--- NOTE | 2022-11-12 12:05 | ED_ITS ---
HPI - General Adult General Chief complaint: General Medical Stated complaint: diarrhea chest pain Time Seen by Provider: 11/12/22 13:29 Source: patient and educational sign language interpreter Mode of arrival: ambulatory Limitations: language barrier History of Present Illness HPI narrative: Patient is a 52 year old assigned female at with a history of hepatitis C presenting to the emergency department today after exposure to Salmonella. Patient states that his is currently admitted at this hospital and tested positive for Salmonella. Patient states that he was called by someone from the floor and told that he needs to be treated for Salmonella. Patient denies any symptoms. Patient denies any dizziness, lightheadedness, abdominal pain, nausea, vomiting, fever, chills, blurry vision, double vision, loss of vision, chest pain, difficulty breathing, shortness of breath, back pain, night sweats, pain with urination, increased urinary frequency, increased urinary urgency, blood in his urine or stool, syncope or a near syncopal episode, recent trauma or falls, bowel incontinence, bladder incontinence, bowel retention, bladder retention, or any other complaints at this time. Relieving factors: none Exacerbating factors: none Associated symptoms: denies other symptoms Treatments prior to arrival: none Related Data Home Medications Medication Instructions Recorded Confirmed pen needle, diabetic 31 gauge x #50 ea 06/29/20 10/19/2209/06 clonazepam 0.5 mg tablet 0.5 mg PO DAILY PRN Anxiety 08/15/21 10/30/22 quetiapine 50 mg tablet 25 mg PO BID 08/15/21 10/30/22 buprenorphine 8 mg-naloxone 2 mg 8 mg sublingual TID 10/09/22 10/30/22 sublingual film insulin glargine 100 unit/mL 35 unit subcut BEDTIME 10/09/22 10/30/22 subcutaneous solution (Lantus U-100 Insulin) prazosin 2 mg capsule 2 mg PO BEDTIME 10/09/22 10/30/22 Previous Rx's Medication Instructions Recorded blood sugar diagnostic (FreeStyle #100 ea 04/12/ Lite Strips) lancets 28 gauge (FreeStyle #100 ea 04/12/20 Lancets) blood-glucose meter (FreeStyle #1 ea 08/11/21 [place] kit) blood-glucose meter (OneTouch #1 ea 08/15/21 Ultra2 Meter kit) lancets (OneTouch UltraSoft #100 ea 08/15/21 Lancets) hydrocortisone 1 % topical cream 1 appl topical TID PRN skin 12/21/21 (Anti-Itch (hydrocortisone)) irritation 2 weeks #28.4 grams Shower Chair #1 ea 05/22/22 handheld shower #1 ea 05/22/22 nonslip shower mat #1 ea 05/22/22 blood sugar diagnostic (OneTouch #100 ea 08/05/22 Ultra Test strips) clotrimazole-betamethasone 1 1 appl topical BID 2 weeks #45 09/19/22 %-0.05 % topical cream grams insulin syringe-needle U-100 0.5 #100 ea 09/19/22 mL 31 gauge x 5/16 (BD Insulin Syringe Ultra-Fine) lidocaine 5 % topical patch 1 patch topical DAILY 30 days #30 09/19/22 ea sucralfate 1 gram tablet (Carafate) 1 g PO QIDACHS 14 days #56 tabs 10/12/22 carvedilol 3.125 mg tablet 3.125 mg PO BID 30 days #60 tabs 10/19/22 furosemide 20 mg tablet 20 mg PO DAILY 30 days #30 tabs 10/19/22 pantoprazole 40 mg tablet,delayed 40 mg PO BID 30 days #60 tabs 10/19/22 release pravastatin 20 mg tablet 20 mg PO BEDTIME 30 days #30 tabs 10/19/22 spironolactone 25 mg tablet 50 mg PO DAILY 30 days #60 tabs 10/19/22 varenicline 0.5 mg tablet 0.5 mg PO BID 30 days #60 tabs 11/03/22 cholecalciferol (vitamin D3) 50 50 mcg PO DAILY 90 days #90 caps 11/06/22 mcg (2,000 unit) capsule Allergies Allergy/AdvReac Type Severity Reaction Status Date / Time lisinopril AdvReac Intermediate Headache Verified 10/19/22 15:49 varenicline AdvReac Intermediate suicidal Verified 10/19/22 15:49 ideation Review of Systems Constitutional: Constitutional: Reports no additional constitutional complaints, Denies chills, Denies fever(s) and Denies night sweats Eyes: Eyes: Reports no additional eye complaints, Denies blurry vision, Denies change in vision, Denies diplopia, Denies eye discharge, Denies loss of vision and Denies eye pain ENT: Denies dizziness Cardiovascular: Cardiovascular: Reports no additional cardiovascular complaints, Denies chest pain, Denies lightheadedness, Denies Loss of Consciousness and Denies dyspnea Respiratory: Respiratory: Reports no additional respiratory complaints and Denies dyspnea Gastrointestinal: Gastrointestinal: Reports no additional gastrointestinal complaints, Denies abdominal pain, Denies melena, Denies hematochezia, Denies change in bowel habits and Denies change in stool character Genitourinary: Genitourinary: Reports no additional male genitourinary complaints, Denies hematuria, Denies oliguria, Denies difficulty urinating, Denies dysuria, Denies urinary frequency, Denies urinary hesitancy, Denies urinary incontinence and Denies urinary urgency Musculoskeletal: Musculoskeletal: Reports no additional musculoskeletal complaints, Denies numbness and Denies tingling Neurologic: Denies dizziness, Denies loss of vision, Denies numbness and Denies tingling Psychiatric: Psychiatric: Reports no additional psychiatric complaints Endocrine: Endocrine: Reports no additional endocrine complaints Hematologic/Lymphatic: Hematologic/Lymphatic: Reports no additional hematologic/lymphatic complaints Allergic/Immunologic: Allergic/Immunologic: Reports no additional allergic/immunologic complaints [facility] Past Medical History Attestation statement: The following information was validated with the patient. Source: old records reviewed and nursing notes reviewed Medical History Acid reflux Bipolar disorder Diabetes mellitus Essential hypertension GERD (gastroesophageal reflux disease) HCV (hepatitis C virus) History of abdominal paracentesis History of substance abuse Left knee pain Moderate recurrent major depression Normocytic anemia Pure hypercholesterolemia Right knee pain Transaminitis Surgical History Hx of esophagogastroduodenoscopy No pertinent past surgical history Family History Family History Father CVD (cardiovascular disease) Diabetes Maternal Grandmother Diabetes Brother Respiratory failure Asthma Sister No problems noted. Daughter No problems noted. Family/Other Mental health disorder Social History Social History Household Members: Spouse Housing: Apartment Do you presently have visiting nurse or other home services: No Alcohol intake: never Patient Tobacco Use Status: Current everyday Tobacco user Tobacco use type: Cigarette Cigarette Packs Per Day: 1 Cigarettes Per Day: 20.0 Years Smoked: 40 e-Cigarette/Vaping Use: Currently Using Second Hand Smoke Exposure: No Advance Directives: No Advance Directives Information Provided: Yes service: No Current occupational status: unemployed Current occupation: Right Handed Cognitive needs: Yes Hearing needs: No Vision needs: No Physical Exam ED Vital Signs: Vital Signs - 24 hr 11/12/22 12:01 Temperature 98.5 F Pulse Rate 76 Respiratory Rate 18 Blood Pressure 109/66 Pulse Oximetry 98 Oxygen Delivery Method Room Air BMI result Body Mass Index 37.9 Const General: cooperative, no acute distress, alert and awake Nutritional Appearance: well nourished Orientation/consciousness: patient oriented x3 Limitations: no limitations HENMT Head: Yes normal to inspection and Yes atraumatic Ears: hearing grossly normal bilaterally and external ears normal General nose exam: Normal external nose present, no nasal discharge noted and no epistaxis Face and sinus: Yes normal facial exam, No abrasion and No laceration Mouth: Normal oral and palatal mucosa present, no drooling and no muffled voice Eyes General: appearance normal, both eyes and all related structures Periorbital: periorbital findings normal Eyelids: Yes eyelids normal Conjunctivae: conjunctivae normal Pupils: Equal, round and reactive pupils present EOM: EOMs intact bilaterally Neck Neck: Yes normal visual inspection, Yes full ROM and Yes no lymphadenopathy Chest Chest palpation & inspection: normal inspection of the chest Resp Effort & Inspection: normal respiratory effort and able to speak in complete sentences GI Inspection: Yes normal to inspection Neuro General: patient oriented x3 and moves all extremities Cranial nerves: Yes Equal, round and reactive pupils present Cognition (Neuro): normal cognition Motor exam (neuro): 5/5 motor strength present throughout Sensory Exam: Normal double simultaneous stimulation for sensation Coordination: [id number] test normal Extrem General: Yes normal to inspection, Yes full ROM and Yes capillary refill normal Psych Appearance: grossly normal Mental Status: mental status grossly normal Affect: normal affect Attitude: cooperative Thought process: Normal thought process present Thought content: Normal thought content present Insight: Good insight present (Psych) Course Course Course Narrative: This is a rapid medical exam. Deferred additional HPI, ROS, PE to primary provider. + for salmonella upstairs. Patient now having tactile temps and diarrhea. \ VSS Will obtain labs, stool studies Medical Decision Making Medical Decision Making MDM Narrative: Patient is a 52 year old assigned male at with a history of hepatitis C presenting to the emergency department today after exposure to Salmonella. Patient's physical exam was unremarkable. Patient's blood work was unremarkable. I spoke to the patient's GI doctor who recommended NOT starting treatment as this patient is asymptomatic at this time. I explained my physical exam findings as well as all test results to the patient. I answered all questions asked by the patient. I stressed the importance of the patient taking his medication as prescribed. I stressed the importance of the patient following up with his primary care provider and his GI specialist. I stressed the importance of the patient returning to the emergency department immediately if his symptoms were to worsen or if he were to develop any dizziness, shortness of breath, difficulty breathing, chest pain, blurry vision, loss of vision, nausea, vomiting, abdominal pain, fever, chills, back pain, or any other complaints. Patient verbalized agreement and understanding with this treatment plan and discharge. Differential Diagnosis Differential Diagnoses: The differential diagnosis associated with the present ation includes salmonella exposure Admission/Observation Consideration of admission/observation: Escalation of care including a dmission/observation considered Had patient's work up showed any critical abnormalities, patient would have been admitted. Consult Healthcare Provider Management of the patient was discussed with: Online Content Editor (spoke to the patient's GI doctor as noted in the MDM portion of this chart. ) Lab Data [facility] Lab Attestation statement: I reviewed the patient's lab results. 11/12/22 13:18 11/12/22 13:18 Labs: Lab Results 11/12/22 11/12/22 Range/Units 13:18 13:18 WBC 5.7 (4.8-10.8) X10*3/uL RBC 3.74 L (4.60-5.80) X10*6/uL Hgb 9.7 L (14.0-18.0) g/dl Hct 30.3 L (42.0-52.0) % MCV 81.0 (80.0-98.0) fL MCH 25.9 L (27.0-33.0) pg MCHC 32.0 (31.0-36.0) g/dl RDW 14.3 (11.0-16.0) % Plt Count 159 L (160-400) X10*3/uL MPV 10.4 (9.4-12.4) fL Immature Gran % (Auto) 0.7 H (0.0-0.4) % Neut % (Auto) 54.2 (45-73) % Lymph % (Auto) 29.8 (20-40) % [place] % (Auto) 11.4 H (2-11) % Eos % (Auto) 3.5 (0-4) % Baso % (Auto) 0.4 (0-2) % Lymph # (Auto) 1.7 (1.2-4.9) X10*3/uL [place] # (Auto) 0.7 (0.1-1.2) X10*3/uL Eos # (Auto) 0.2 (0.0-0.4) X10*3/uL Baso # (Auto) 0.0 (0.0-0.2) X10*3/uL Abs Immat Gran (auto) 0.04 H (0.00-0.03) X10*3/uL Absolute Neuts (auto) 3.1 (2.0-8.3) x10*3/uL Absolute Nucleated RBC 0.000 (0.0-0.012) X10*3/uL Nucleated RBC % (auto) 0.0 (0.0-0.2) /100WBC Sodium 140 (135-145) mmol/L Potassium 3.3 (3.3-5.1) mmol/L Chloride 109 H (96-108) mmol/L Carbon Dioxide 21 L (22-29) mmol/L Anion Gap 13 (12-20) BUN 12 (9-16) mg/dL Creatinine 0.88 (0.5-1.4) mg/dL Estim Creat Clear Calc 112.3 Estimated GFR > 60 Random Glucose 195 H (60-115) mg/dL Calcium 8.4 (8.4-10.2) mg/dL Critical Care Time Critical Care Time Critical Care Time: Yes Total Critical Care Time: 30 Attestation: I spent 30 minutes of Critical Care Time with this patient. This does not include time spent on separately reported billable procedures. Discharge Plan Discharge Clinical Impression: Infectious disease exposure Patient Disposition: Home, Self-Care Additional Instructions: I spoke with your GI doctor who recommended NOT giving any medications at this time because you do NOT have symptoms. If this changes, please return to the ER. Follow up with your primary care provider and your GI doctor. Return to the emergency department immediately if your symptoms worsen or if you develop any dizziness, shortness of breath, difficulty breathing, chest pain, blurry vision, loss of vision, nausea, vomiting, abdominal pain, fever, chills, back pain, or any other complaints. Habl? con herbert m?dico GI quien recomend? NO administrar ward?n medicamento en anup momento porque NO tiene s?ntomas. Si esto cambia, regrese a la nancy de emergencias. Daniel un seguimiento con herbert proveedor de atenci?n primaria y herbert m?dico GI. Regrese al departamento de emergencias de inmediato si sofia s?ntomas empeoran o si presenta mareos, falta de aire, dificultad para respirar, dolor de pecho, visi?n borrosa, p?rdida de la visi?n, n?useas, v?mitos, dolor abdominal, fiebre, escalofr?os, dolor de espalda o cualquier otras quejas. Prescriptions: No Action (DME) FreeStyle Lite Strips Strip See Rx Instructions .ROUTE .MEDSUPPLY Qty: 100 11RF Rx Instructions: As directed twice a day (DME) lancets [FreeStyle Lancets] 28 gauge misc See Rx Instructions .ROUTE .MEDSUPPLY Qty: 100 11RF Rx Instructions: As directed twice a day (DME) blood-glucose meter [FreeStyle [place]] Kit See Rx Instructions .ROUTE .MEDSUPPLY Qty: 1 0RF Rx Instructions: As directed (DME) OneTouch Ultra Test Strip See Rx Instructions .Route Qty: 100 6RF Rx Instructions: Use 1 lancet twice a day clotrimazole-betamethasone 1-0.05 % cream 1 appl topical BID 14 Days Qty: 45 1RF lidocaine 5 % adhesive patch,medicated 1 patch topical DAILY 30 Days Qty: 30 4RF Rx Instructions: leave on most painful area for up to 12 hrs (DME) insulin syringe-needle U-100 [BD Insulin Syringe Ultra-Fine] 0.5 mL 31 gauge x 5/16 syringe See Rx Instructions .ROUTE .MEDSUPPLY Qty: 100 4RF Rx Instructions: Use 1 syringe needle once a day varenicline 0.5 mg tablet 0.5 mg PO BID 30 Days Qty: 60 0RF Rx Instructions: administer on days 4, 5, 6, and 7 of therapy cholecalciferol (vitamin D3) 50 mcg (2,000 unit) capsule 50 mcg PO DAILY 90 Days Qty: 90 1RF buprenorphine-naloxone 8-2 mg film 8 mg sublingual TID prazosin 2 mg capsule 2 mg PO BEDTIME insulin glargine [Lantus U-100 Insulin] 100 unit/mL solution 35 unit subcut BEDTIME sucralfate [Carafate] 1 gram tablet 1 g PO QIDACHS 14 Days Qty: 56 0RF (DME) pen needle, diabetic 31 gauge x 3/16 needle See Rx Instructions subcut DAILY Qty: 50 Rx Instructions: As directed clonazepam 0.5 mg tablet 0.5 mg PO DAILY PRN (Reason: Anxiety) quetiapine 50 mg tablet 25 mg PO BID (DME) blood-glucose meter [OneTouch Ultra2 Meter] Kit See Rx Instructions .Route Qty: 1 0RF Rx Instructions: As directed (DME) lancets [OneTouch UltraSoft Lancets] Misc See Rx Instructions .Route Qty: 100 6RF Rx Instructions: Use 1 lancet twice a day carvedilol 3.125 mg tablet 3.125 mg PO BID 30 Days Qty: 60 0RF Protocol: Hold for SBP/HR < HOLD for SBP < : 90 HOLD for HR < : 60 pantoprazole 40 mg tablet,delayed release (DR/EC) 40 mg PO BID 30 Days Qty: 60 0RF pravastatin 20 mg tablet 20 mg PO BEDTIME 30 Days Qty: 30 0RF spironolactone 25 mg tablet 50 mg PO DAILY 30 Days Qty: 60 0RF Protocol: Hold for SBP< HOLD for SBP < : 90 furosemide 20 mg tablet 20 mg PO DAILY 30 Days Qty: 30 0RF Protocol: Hold for SBP< HOLD for SBP < : 90 hydrocortisone [Anti-Itch (HC)] 1 % cream 1 appl topical TID PRN (Reason: skin irritation) 14 Days Qty: 28.4 1RF (DME) nonslip shower mat See Rx Instructions .Route .MEDSUPPLY Qty: 1 0RF Rx Instructions: As directed (DME) Shower Chair Misc See Rx Instructions .Route Qty: 1 0RF Rx Instructions: As directed (DME) handheld shower See Rx Instructions .Route .MEDSUPPLY Qty: 1 0RF Rx Instructions: As directed Referrals: Milton Hyatt MD [Physician] - Kierra Ulloa MD [Primary Care Provider] - Interventions: ED Discharge Assessment Last Done: 11/12/22 15:26 Discharge Date/Time: 11/12/22 15:26 Print Language: Urdu
[2022-11-12 13:23] LABS: MANUAL DIFF FLAG NO
[2022-11-12 13:25] LABS: Basophils Percent Auto 0.4 % (0-2); Eosinophils Absolute Auto 0.2 X10*3/uL (0.0-0.4); Eosinophils Percent Auto 3.5 % (0-4); Hematocrit 30.3 % (42.0-52.0); Hemoglobin 9.7 g/dl (14.0-18.0); Imm Gran Abs Auto 0.04 X10*3/uL (0.00-0.03); Imm Gran Pct Auto 0.7 % (0.0-0.4); Lymphocytes Absolute Auto 1.7 X10*3/uL (1.2-4.9); Lymphocytes Percent Auto 29.8 % (20-40); Mean Corpuscular Hemoglobin 25.9 pg (27.0-33.0); Mean Platelet Volume 10.4 fL (9.4-12.4); Monocytes Absolute Auto 0.7 X10*3/uL (0.1-1.2); Monocytes Percent Auto 11.4 % (2-11); Neutrophils Absolute Auto 3.1 x10*3/uL (2.0-8.3); Neutrophils Percent Auto 54.2 % (45-73); Platelet Count 159 X10*3/uL (160-400); Red Blood Count 3.74 X10*6/uL (4.60-5.80); Red Cell Distribution Width 14.3 % (11.0-16.0); White Blood Count 5.7 X10*3/uL (4.8-10.8)
[2022-11-12 13:39] LABS: Anion Gap 13 (12-20); Blood Urea Nitrogen 12 mg/dL (9-16); Calcium 8.4 mg/dL (8.4-10.2); Carbon Dioxide 21 mmol/L (22-29); Chloride 109 mmol/L (96-108); Creatinine Clr Calc Pharmacy 112.3; Estimated Glomerular Filt Rate > 60; Glucose Random 195 mg/dL (60-115); Potassium 3.3 mmol/L (3.3-5.1); Sodium 140 mmol/L (135-145)
== END 2022-11-12 15:26 | disposition home or self-care (01) ==
PROVIDERS: Nurse Practitioner Family; Emergency Provider Emergency Medicine; PCP Internal Medicine
DX: Z20.09 Contact with and (suspected) exposure to other intestinal infectious diseases (principal); F17.210 Nicotine dependence, cigarettes, uncomplicated; Z79.4 Long term (current) use of insulin; Z79.899 Other long term (current) drug therapy
CPT/HCPCS: 36415; 80048; 85025; 99282; 99283

== ENCOUNTER → 2022-11-15 10:13 | Outpatient (BNVA) | payer OTHER, SELFPAY | PROVIDERS: PCP Internal Medicine; Visit Provider Physician Assistant | DX: K76.6 Portal hypertension (principal); D64.9 Anemia, unspecified; B19.20 Unspecified viral hepatitis C without hepatic coma; R18.8 Other ascites; K31.89 Other diseases of stomach and duodenum; E11.9 Type 2 diabetes mellitus without complications; Z79.4 Long term (current) use of insulin | CPT/HCPCS: 99212 ==

== ENCOUNTER 2022-11-16 07:04 | Day surgery (SDC) | payer OTHER, SELFPAY ==
--- NOTE | ~2022-11-16 | US_ITS ---
EXAMINATION: Ultrasound-guided paracentesis CLINICAL INFORMATION: Ascites COMPARISON: Previous exam most recent 10/11/2022 TECHNIQUE: Procedure and risks and benefits including bleeding, infection and low blood pressure were discussed with the patient and informed consent was obtained. The right lower quadrant was prepped and draped in the usual sterile fashion. The skin and soft tissues were anesthetized with 1% lidocaine plain. Using ultrasound guidance and a 5 [place] one-step system, access to the ascitic fluid was obtained. 2.1 L of dark clear yellow fluid was removed. No specimen was sent. FINDINGS: There is a moderate amount of ascites. US/US paracentesis abd w/image IMPRESSION: Ultrasound-guided paracentesis.
[2022-11-16 07:08] VITALS: BP 134/72; PULSE 98; RESP 20; O2SAT 99
[2022-11-16 07:18] LABS: Glucose, Whole Blood 159 mg/dL (60-115)
[2022-11-16 07:48] LABS: MANUAL DIFF FLAG NO
[2022-11-16 07:51] LABS: Hematocrit 28.1 % (42.0-52.0); Mean Corpuscular Hemoglobin 26.1 pg (27.0-33.0); Mean Corpuscular Volume 81.4 fL (80.0-98.0); Mean Platelet Volume 9.3 fL (9.4-12.4); Platelet Count 147 X10*3/uL (160-400); Red Blood Count 3.45 X10*6/uL (4.60-5.80); Red Cell Distribution Width 14.9 % (11.0-16.0); White Blood Count 4.7 X10*3/uL (4.8-10.8)
[2022-11-16 07:52] LABS: Basophils Percent Auto 0.2 % (0-2); Eosinophils Absolute Auto 0.2 X10*3/uL (0.0-0.4); Eosinophils Percent Auto 3.8 % (0-4); Hematocrit 28.4 % (42.0-52.0); Hemoglobin 9.1 g/dl (14.0-18.0); Imm Gran Abs Auto 0.03 X10*3/uL (0.00-0.03); Imm Gran Pct Auto 0.7 % (0.0-0.4); Lymphocytes Absolute Auto 1.5 X10*3/uL (1.2-4.9); Lymphocytes Percent Auto 32.5 % (20-40); Mean Corpuscular Hemoglobin 26.1 pg (27.0-33.0); Mean Corpuscular Volume 81.4 fL (80.0-98.0); Mean Platelet Volume 10.4 fL (9.4-12.4); Monocytes Absolute Auto 0.4 X10*3/uL (0.1-1.2); Monocytes Percent Auto 8.4 % (2-11); Neutrophils Absolute Auto 2.5 x10*3/uL (2.0-8.3); Neutrophils Percent Auto 54.4 % (45-73); Platelet Count 155 X10*3/uL (160-400); Red Blood Count 3.49 X10*6/uL (4.60-5.80); Red Cell Distribution Width 14.7 % (11.0-16.0); White Blood Count 4.5 X10*3/uL (4.8-10.8)
[2022-11-16 07:55] LABS: INTERNATIONAL NORM RATIO 1.1 (0.9-1.1)
[2022-11-16 07:58] LABS: Partial Thromboplastin Time 33.2 SEC (26.0-36.4)
[2022-11-16 08:03] LABS: Blood Urea Nitrogen 10 mg/dL (9-16); Estimated Glomerular Filt Rate > 60
[2022-11-16] MEDS: Lidocaine HCl 1 % MPF 5 ML VIAL SUBCUT (09:44)
[2022-11-16 09:46] VITALS: BP 127/77; RESP 18; TEMP 36.8; O2SAT 100
[2022-11-16 10:01] VITALS: BP 134/75; PULSE 69; RESP 16; O2SAT 98
[2022-11-16 10:16] VITALS: BP 136/78; PULSE 73; RESP 16; O2SAT 98
[2022-11-16 10:30] VITALS: BP 138/78; PULSE 70; RESP 16; TEMP 36.6; O2SAT 100
== END 2022-11-16 10:37 | disposition home or self-care (01) ==
PROVIDERS: Nurse Practitioner; Radiology Diagnostic Radiology; PCP Internal Medicine; Visit Provider Radiology Diagnostic Radiology
DX: R18.8 Other ascites (principal); K76.9 Liver disease, unspecified; K21.9 Gastro-esophageal reflux disease without esophagitis; I10 Essential (primary) hypertension; E78.00 Pure hypercholesterolemia, unspecified; E11.9 Type 2 diabetes mellitus without complications; B19.20 Unspecified viral hepatitis C without hepatic coma; F19.11 Other psychoactive substance abuse, in remission; F33.1 Major depressive disorder, recurrent, moderate; F17.210 Nicotine dependence, cigarettes, uncomplicated; Z79.4 Long term (current) use of insulin; Z79.899 Other long term (current) drug therapy; Z88.8 Allergy status to other drugs, medicaments and biological substances
CPT/HCPCS: 36415; 49083; 82565; 82947; 84520; 85025; 85027; 85610; 85730

== ENCOUNTER 2022-11-21 11:08 | Day surgery (SDC) | payer OTHER, SELFPAY ==
--- NOTE | 2022-10-31 12:42 | P.CONAN_ITS ---
HPI - Anesthesia Eval Consult details Narrative: 52yo M for Upper Endoscopy and Colonoscopy [facility] [place] admit 09/2022 - untreated chronic Hep C, likely cirrhosis, esophageal varices, anemia s/p paracentesis with MAC 10/09/2022 [facility] Active Problems Active Problems: All Active Problems (Updated 10/30/22 @ 11:03 by Autumn Kessler RN) Patellofemoral pain syndrome of both knees (Acute) Arthritis of both knees (Acute) Hypovitaminosis D (Acute) Anemia (Acute) Physical exam (Acute) Acute lower gastrointestinal bleeding (Acute) Abdominal ascites (Acute) NSAID long-term use (Acute) Esophageal varices with bleeding (Acute) Gastric ulcer (Acute) Hospital discharge follow-up (Acute) HCV (hepatitis C virus) (Acute) History of substance abuse (Acute) Bipolar disorder (Acute) Moderate recurrent major depression (Acute) Acid reflux (Acute) Right knee pain (Acute) Transaminitis (Acute) Left knee pain (Acute) Diabetes mellitus (Acute) Pure hypercholesterolemia (Acute) Essential hypertension (Acute) Past Medical History Medical History (Updated 10/30/22 @ 11:03 by Autunm Kessler RN) Acid reflux Bipolar disorder Diabetes mellitus Essential hypertension GERD (gastroesophageal reflux disease) HCV (hepatitis C virus) History of abdominal paracentesis History of substance abuse Left knee pain Moderate recurrent major depression Normocytic anemia Pure hypercholesterolemia Right knee pain Transaminitis Family History Family History Father CVD (cardiovascular disease) Diabetes Maternal Grandmother Diabetes Brother Respiratory failure Asthma Sister No problems noted. Daughter No problems noted. Family/Other Mental health disorder Surgical History Surgical History (Updated 10/30/22 @ 11:03 by Autumn Kessler RN) Hx of esophagogastroduodenoscopy No pertinent past surgical history Social History Social History Household Members: Spouse Housing: Apartment Do you presently have visiting nurse or other home services: No Alcohol intake: never Patient Tobacco Use Status: Current everyday Tobacco user Tobacco use type: Cigarette Cigarette Packs Per Day: 1 Cigarettes Per Day: 20.0 Years Smoked: 40 Packs Per Year: 40 Packs per year/per ci.00 e-Cigarette/Vaping Use: Currently Using Second Hand Smoke Exposure: No service: No Current occupational status: unemployed Current occupation: Right Handed Cognitive needs: Yes Hearing needs: No Vision needs: No Meds Allergies Allergy/AdvReac Type Severity Reaction Status Date / Time lisinopril AdvReac Intermediate Headache Verified 10/19/22 15:49 varenicline AdvReac Intermediate suicidal Verified 10/19/22 15:49 ideation Home Medications Medication Instructions Recorded Confirmed Last Taken Type pen needle, diabetic 31 gauge x #50 ea 06/29/20 10/19/22 Unknown History 3/16 clonazepam 0.5 mg tablet 0.5 mg PO DAILY PRN Anxiety 08/15/21 10/30/22 Unknown History quetiapine 50 mg tablet 25 mg PO BID 08/15/21 10/30/22 Unknown History buprenorphine 8 mg-naloxone 2 mg 8 mg sublingual TID 10/09/22 10/30/22 10/08/22 History sublingual film insulin glargine 100 unit/mL 35 unit subcut BEDTIME 10/09/22 10/30/22 Unknown History subcutaneous solution (Lantus U-100 Insulin) prazosin 2 mg capsule 2 mg PO BEDTIME 10/09/22 10/30/22 Unknown History Exam Exam Date and Time: October 31, 2022 124 Pertinent Lab Results Pertinent Lab Results: Laboratory Tests 10/11/22 10/12/22 05:40 05:33 WBC 4.7 L Hgb 7.4 L Hct 23.2 L Plt Count 146 L Sodium 137 Potassium 4.3 Chloride 111 H Carbon Dioxide 21 L BUN 14 Creatinine 0.94 Assessment and Plan Assessment Anesthesia Assessment: Chart Reviewed
--- NOTE | 2022-11-01 06:08 | MHC.SHP ---
Pre-Procedural Eval Section A Date of Service: 11/01/22 Section B Chief Complaint: Anemia,GERD,Elevation levels of liver transaminase Present Medications: see Short Stay Collaborative assessment Medical History: Significant History Allergies: Allergies Allergy/AdvReac Type Severity Reaction Status Date / Time lisinopril AdvReac Intermediate Headache Verified 10/19/22 15:49 varenicline AdvReac Intermediate suicidal Verified 10/19/22 15:49 ideation Review of Systems Sugical H&P ROS: Negative: Constitution, Cardiovascular, Respiratory, Neurological, Psychiatric, Hem-Onc, Allergic/Immunologic, Gastrointestinal, Genitourinary, Musculoskeletal, Integumentary, Endocrine and Eyes/Ears/Nose/Throat Exam Surgical H&P Exam: Normal: HEENT, Normal: Heart, Normal: Lungs, Normal: Extremities, Normal: Abdomen, Normal: Skin and Normal: Neurological Plan Diagnosis/Plan: Unchanged I have reviewed the history and physical and performed a pertinent physical examination on my patient. No changes have occurred unless specified. Time Spent With Patient Time: Total time managing care of this patient today ____ minutes.
[2022-11-21 12:12] VITALS: BMI 34.1
--- NOTE | 2022-11-21 12:13 | HO.ANESPROP2 ---
[facility] Active Problems Active Problems: All Active Problems (Updated 11/15/22 @ 14:36 by Courtney Rock PA-C) Portal hypertensive gastropathy (Acute) Patellofemoral pain syndrome of both knees (Acute) Arthritis of both knees (Acute) Hypovitaminosis D (Acute) Anemia (Acute) Physical exam (Acute) Acute lower gastrointestinal bleeding (Acute) Abdominal ascites (Acute) NSAID long-term use (Acute) Esophageal varices with bleeding (Acute) Gastric ulcer (Acute) Hospital discharge follow-up (Acute) HCV (hepatitis C virus) (Acute) History of substance abuse (Acute) Bipolar disorder (Acute) Moderate recurrent major depression (Acute) Acid reflux (Acute) Right knee pain (Acute) Transaminitis (Acute) Left knee pain (Acute) Diabetes mellitus (Acute) Pure hypercholesterolemia (Acute) Essential hypertension (Acute) Past Medical History Medical History Acid reflux Bipolar disorder Diabetes mellitus Essential hypertension GERD (gastroesophageal reflux disease) HCV (hepatitis C virus) History of abdominal paracentesis History of substance abuse Left knee pain Moderate recurrent major depression Normocytic anemia Pure hypercholesterolemia Right knee pain Transaminitis Family History Family History Father CVD (cardiovascular disease) Diabetes Maternal Grandmother Diabetes Brother Respiratory failure Asthma Sister No problems noted. Daughter No problems noted. Family/Other Mental health disorder Family history of problems with anesthesia: No Surgical History Surgical History Hx of esophagogastroduodenoscopy No pertinent past surgical history History of Problems with Anesthesia: No Social History Social History Household Members: Spouse Housing: Apartment Do you presently have visiting nurse or other home services: No Alcohol intake: never Patient Tobacco Use Status: Current everyday Tobacco user Tobacco use type: Cigarette Cigarette Packs Per Day: 1 Cigarettes Per Day: 20.0 Years Smoked: 40 e-Cigarette/Vaping Use: Currently Using Second Hand Smoke Exposure: No Advance Directives: No Advance Directives Information Provided: Yes service: No Current occupational status: unemployed Current occupation: Right Handed Cognitive needs: Yes Hearing needs: No Vision needs: No Meds Allergies Allergy/AdvReac Type Severity Reaction Status Date / Time lisinopril AdvReac Intermediate Headache Verified 11/15/22 10:21 varenicline AdvReac Intermediate suicidal Verified 11/15/22 10:21 ideation Home Medications Medication Instructions Recorded Confirmed Last Taken Type pen needle, diabetic 31 gauge x #50 ea 06/29/20 11/15/22 Unknown History 3/16 clonazepam 0.5 mg tablet 0.5 mg PO DAILY PRN Anxiety 08/15/21 11/15/22 Unknown History quetiapine 50 mg tablet 25 mg PO BID 08/15/21 11/15/22 Unknown History buprenorphine 8 mg-naloxone 2 mg 8 mg sublingual TID 10/09/22 11/15/22 10/08/22 History sublingual film insulin glargine 100 unit/mL 35 unit subcut BEDTIME 10/09/22 11/15/22 Unknown History subcutaneous solution (Lantus U-100 Insulin) prazosin 2 mg capsule 2 mg PO BEDTIME 10/09/22 11/15/22 Unknown History Exam Exam Date and Time: November 21, 2022 1213 Airway Mallampati Class: III TM Dist: >3cm Neck ROM: Full Assessment and Plan Assessment Anesthesia Assessment: Anesthesia Plan Discussed and Chart Reviewed Final Anesthetic Review Family History of Problems with Anesthesia: No History of Problems with Anesthesia: No NPO: Yes Final Preanesthetic Review: No Changes in Pt Med Stat, Meds/Allgs Chart Reviewed, Consent Obtained/Reviewed and Anes Risks/Benef Reviewed Patient Risk: Intermediate Procedure Risk: Intermediate Anesthetic Plan Anesthetic Plan: MAC: Disposition: Standard PACU
--- NOTE | 2022-11-21 12:16 | MHC.SHP ---
Pre-Procedural Eval Section A Date of Service: 11/21/22 Section B Chief Complaint: Anemia,Other ascites Relevant Family History (Specify if Yes): No Relevant Social History: Tobacco Use Present Medications: see Short Stay Collaborative assessment Medical History: Significant History (Acid reflux Bipolar disorder Diabetes mellitus Essential hypertension GERD (gastroesophageal reflux disease) HCV (hepatitis C virus) History of abdominal paracentesis History of substance abuse Left knee pain Moderate recurrent major depression Normocytic anemia Pure hypercholesterolemia Right knee ) History of Previous Operations: Relevant previous surgery/procedure and date(s) (egd) Allergies: Allergies Allergy/AdvReac Type Severity Reaction Status Date / Time lisinopril AdvReac Intermediate Headache Verified 11/21/22 12:16 varenicline AdvReac Intermediate suicidal Verified 11/21/22 12:16 ideation Review of Systems Sugical H&P ROS: Negative: Constitution, Cardiovascular, Respiratory, Neurological, Psychiatric, Hem-Onc, Allergic/Immunologic, Gastrointestinal, Genitourinary, Musculoskeletal, Integumentary, Endocrine and Eyes/Ears/Nose/Throat Exam Surgical H&P Exam: Normal: HEENT, Normal: Heart, Normal: Lungs, Normal: Extremities, Normal: Abdomen, Normal: Skin and Normal: Neurological Plan Diagnosis/Plan: Unchanged I have reviewed the history and physical and performed a pertinent physical examination on my patient. No changes have occurred unless specified. Time Spent With Patient Time: Total time managing care of this patient today ____ minutes.
[2022-11-21 12:26] VITALS: BP 129/66; PULSE 79; RESP 16; TEMP 36.4; O2SAT 97
--- NOTE | 2022-11-21 12:49 | PC.NURSE ---
PATIENT ARRIVED TO [facility] WITH $1207.00 ENGLISH. THIS MONEY COUNTED AT BEDSIDE WITH QUALITY NURSE, VALERIO RODRIGUEZ RN, AND PATIENT. MONEY SEALED IN [employer] FORM AND BROUGHT TO SECURITY BY RONEY FUENTES.
[2022-11-21 12:53] LABS: Glucose, Whole Blood 171 mg/dL (60-115)
--- NOTE | 2022-11-21 12:54 | PC.NURSE ---
Dr. Covarrubias at bedside and made aware of patients diminished lung sounds. SaO2 97%. Patient heavy smoker of many years. Lung sounds normal for patient. No inhalers taken at home. No new orders at this time, may proceed.
--- NOTE | 2022-11-21 12:56 | W.PM.OPN ---
Operative Note Operative Note Date of Service: 11/21/22 Narrative: Operative Information Procedure Description: EGD, Colonoscopy Indication: hx of varices and anemia Anesthesia: MAC FLEXIBLE TRANSORAL UPPER GASTROINTESTINAL ENDOSCOPY AND COLONOSCOPY PROCEDURE NOTE UPPER ENDOSCOPY Consent: Indications for the procedure and potential complications of bleeding, perforation, reaction to medications and missed diagnosis were discussed with the patient and informed consent was obtained. Instrument: Olympus GIF H 190 J mid size upper endoscope Monitoring: Vital signs and clinical assessment, continuous EKG monitoring, Pulse oximetry, Carbon Dioxide monitoring and blood pressure monitoring were done throughout the procedure. Procedure: The patient was placed in the left lateral decubitis position and pre-procedure medications were administered and a bite block was placed. The endoscope was inserted into the mouth and advanced under direct vision to the third part of duodenum. A careful inspection was made as the upper endoscope was withdrawn including a retroflexed examination of the proximal stomach; Findings and interventions are described below. Findings: Larynx:normal Esophagus: GE junction at 40? cm, diaphragm hiatus at 40 cm, 2 cords of grade II varices noted without red aviles and which collapsed with air insufflation Stomach: Patchy gastric erythema with granularity consistent with portal hypertensive gastropathy. Grade 2 flap valve on retroflexed examination of the cardia. In the antrum some erythema and edema noted probably from healing from the gastric ulcer, bx taken Duodenum: Normal bulb and descending duodenum, Intervention: Biopsies as noted above, variceal ligation COLONOSCOPY Instrument: Olympus variable stiffness pediatric scope 190L Colonoscopy Monitoring: Vital signs and clinical assessment, continuous EKG monitoring, Pulse oximetry, Carbon Dioxide monitoring and blood pressure monitoring were done throughout the procedure. Colon withdrawal time was 15 minutes. Procedure: The patient was placed in the left lateral decubitis position and pre-procedure medications were administered. After a digital rectal examination of the ano-rectum, the video colonoscope was inserted into the rectum and advanced through the colon to the cecum/TI. The colonoscope was slowly withdrawn in a retrograde panoramic fashion and the colon mucosa was carefully examined including a retroflexed view of the rectum. Findings and interventions are described below. Procedure Difficulty:moderate due to redundant colon Findings: Terminal Ileum-not intubated Cecum: 4-5 mm sessile polyp removed with cold forceps Ascending Colon: normal Transverse Colon -normal Descending Colon: 10 mm sessile polyp removed with cold snare with one clip applied for hemostasis Sigmoid Colon: 6-8 mm sessile polyp removed with cold snare Rectum: Retroflexion with medium sized internal hemorrhoids, grade I, x 3 sessile polyps 4-5 mm removed with cold forceps Anorectum - normal Colon preparation: [place] Bowel Preparation Scale Right colon; 1-2 Transverse colon: 2 Left colon; 2 (0 = Unprepared colon segment with mucosa not seen due to solid stool that cannot be cleared. 1 = Portion of mucosa of the colon segment seen, but other areas of the colon segment not well seen due to staining, residual stool and/or opaque liquid. 2 = Minor amount of residual staining, small fragments of stool and/or opaque liquid, but mucosa of colon segment seen well. 3 = Entire mucosa of colon segment seen well with no residual staining, small fragments of stool or opaque liquid) Impression and Post Procedure Diagnosis: Endoscopy Findings: esophageal varices gastritis portal hypertensive gastropathy Colonoscopy Findings: polyps internal hemorrhoids Plan: Await Pathology results Repeat Colonoscopy in 1-2 years due to fair prep on right side or earlier if clinically indicated High fiber diet leaflet avoid straining at stool, epsom salts and sitz bath, anusol supps or cream repeat EGD in 1 yr or earlier f/u in office Above findings were reviewed with the patient and relevant handouts were provided if indicated.
--- NOTE | 2022-11-21 13:50 | HO.ANESPROP2 ---
COUNTS INCLUDE 234 BEDS AT THE [facility] Active Problems Active Problems: All Active Problems (Updated 11/15/22 @ 14:36 by Courtney Rock PA-C) Portal hypertensive gastropathy (Acute) Patellofemoral pain syndrome of both knees (Acute) Arthritis of both knees (Acute) Hypovitaminosis D (Acute) Anemia (Acute) Physical exam (Acute) Acute lower gastrointestinal bleeding (Acute) Abdominal ascites (Acute) NSAID long-term use (Acute) Esophageal varices with bleeding (Acute) Gastric ulcer (Acute) Hospital discharge follow-up (Acute) HCV (hepatitis C virus) (Acute) History of substance abuse (Acute) Bipolar disorder (Acute) Moderate recurrent major depression (Acute) Acid reflux (Acute) Right knee pain (Acute) Transaminitis (Acute) Left knee pain (Acute) Diabetes mellitus (Acute) Pure hypercholesterolemia (Acute) Essential hypertension (Acute) Past Medical History Medical History Acid reflux Bipolar disorder Diabetes mellitus Essential hypertension GERD (gastroesophageal reflux disease) HCV (hepatitis C virus) History of abdominal paracentesis History of substance abuse Left knee pain Moderate recurrent major depression Normocytic anemia Pure hypercholesterolemia Right knee pain Transaminitis Family History Family History Father CVD (cardiovascular disease) Diabetes Maternal Grandmother Diabetes Brother Respiratory failure Asthma Sister No problems noted. Daughter No problems noted. Family/Other Mental health disorder Family history of problems with anesthesia: No Surgical History Surgical History Hx of esophagogastroduodenoscopy No pertinent past surgical history History of Problems with Anesthesia: No Social History Social History Household Members: Spouse Housing: Apartment Do you presently have visiting nurse or other home services: No Alcohol intake: never Patient Tobacco Use Status: Current everyday Tobacco user Tobacco use type: Cigarette Cigarette Packs Per Day: 1 Cigarettes Per Day: 20.0 Years Smoked: 40 e-Cigarette/Vaping Use: Currently Using Second Hand Smoke Exposure: No Advance Directives: No Advance Directives Information Provided: Yes service: No Current occupational status: unemployed Current occupation: Right Handed Cognitive needs: Yes Hearing needs: No Vision needs: No Meds Allergies Allergy/AdvReac Type Severity Reaction Status Date / Time lisinopril AdvReac Intermediate Headache Verified 11/21/22 12:16 varenicline AdvReac Intermediate suicidal Verified 11/21/22 12:16 ideation Home Medications Medication Instructions Recorded Confirmed Last Taken Type pen needle, diabetic 31 gauge x #50 ea 06/29/20 11/15/22 Unknown History 3/16 clonazepam 0.5 mg tablet 0.5 mg PO DAILY PRN Anxiety 08/15/21 11/21/22 Unknown History quetiapine 50 mg tablet 25 mg PO BID 08/15/21 11/21/22 Unknown History buprenorphine 8 mg-naloxone 2 mg 8 mg sublingual TID 10/09/22 11/21/22 11/21/22 06:00 History sublingual film 8 mg insulin glargine 100 unit/mL 35 unit subcut BEDTIME 10/09/22 11/21/22 11/20/22 21:00 History subcutaneous solution (Lantus 35 units U-100 Insulin) prazosin 2 mg capsule 2 mg PO BEDTIME 10/09/22 11/21/22 Unknown History Exam Exam Date and Time: November 21, 2022 1350 Height,Weight and Vital Signs: Height 5 ft 6 in Weight 95.708 kg Last Vital Signs Temp 97.6 F 11/21/22 12:26 Pulse 79 11/21/22 12:26 Resp 16 11/21/22 12:26 BP 129/66 11/21/22 12:26 Pulse Ox 97 11/21/22 12:26 O2 Del Method Room Air 11/21/22 12:26 Pertinent Lab Results Pertinent Lab Results: Laboratory Tests 11/21/22 12:40 POC Glucose 171 H Airway Mallampati Class: III TM Dist: >3cm Neck ROM: Full Partial: Upper and Lower Assessment and Plan Assessment Anesthesia Assessment: Anesthesia Plan Discussed and Chart Reviewed Final Anesthetic Review Family History of Problems with Anesthesia: No History of Problems with Anesthesia: No NPO: Yes
[2022-11-21 13:59] VITALS: BP 113/61; PULSE 70; RESP 16; TEMP 36.1; O2SAT 98
[2022-11-21 14:14] VITALS: BP 129/69; PULSE 72; RESP 16; O2SAT 98
[2022-11-21 14:29] VITALS: BP 121/72; PULSE 73; RESP 16; TEMP 36.8; O2SAT 96
--- NOTE | 2022-11-21 16:29 | PC.NURSE ---
Called patent and spoke with him by telephone. Patient statedthat he has arrive home and is safe.
== END 2022-11-21 14:30 | disposition home or self-care (01) ==
PROVIDERS: PCP Internal Medicine; Visit Provider Internal Medicine Gastroenterology
PROC: (CPT 45385; principal; 2022-11-21 14:20)
DX: D64.9 Anemia, unspecified (principal); R18.8 Other ascites; K63.5 Polyp of colon; K62.1 Rectal polyp; K64.0 First degree hemorrhoids; K29.50 Unspecified chronic gastritis without bleeding; I85.00 Esophageal varices without bleeding; K76.6 Portal hypertension; K31.89 Other diseases of stomach and duodenum; K44.9 Diaphragmatic hernia without obstruction or gangrene; E11.9 Type 2 diabetes mellitus without complications; I10 Essential (primary) hypertension; E78.00 Pure hypercholesterolemia, unspecified; B19.20 Unspecified viral hepatitis C without hepatic coma; R74.01 Elevation of levels of liver transaminase levels; F33.1 Major depressive disorder, recurrent, moderate; Z79.4 Long term (current) use of insulin; Z79.899 Other long term (current) drug therapy; Z88.8 Allergy status to other drugs, medicaments and biological substances; F17.210 Nicotine dependence, cigarettes, uncomplicated; F19.11 Other psychoactive substance abuse, in remission
CPT/HCPCS: 45385; 45380; 43244; 43239; 82947; 88305; 88342

== ENCOUNTER 2022-12-24 10:22 | Outpatient (REF) | payer OTHER, SELFPAY ==
[2022-12-24 11:23] LABS: MANUAL DIFF FLAG NO
[2022-12-24 12:07] LABS: Basophils Percent Auto 0.5 % (0-2); Eosinophils Absolute Auto 0.2 X10*3/uL (0.0-0.4); Eosinophils Percent Auto 3.9 % (0-4); Hematocrit 33.7 % (42.0-52.0); Hemoglobin 10.6 g/dl (14.0-18.0); Imm Gran Abs Auto 0.01 X10*3/uL (0.00-0.03); Imm Gran Pct Auto 0.2 % (0.0-0.4); Lymphocytes Absolute Auto 1.4 X10*3/uL (1.2-4.9); Lymphocytes Percent Auto 31.3 % (20-40); Mean Corpuscular HGB Conc 31.5 g/dl (31.0-36.0); Mean Corpuscular Hemoglobin 25.1 pg (27.0-33.0); Mean Corpuscular Volume 79.7 fL (80.0-98.0); Mean Platelet Volume 10.7 fL (9.4-12.4); Monocytes Absolute Auto 0.4 X10*3/uL (0.1-1.2); Neutrophils Absolute Auto 2.4 x10*3/uL (2.0-8.3); Neutrophils Percent Auto 55.1 % (45-73); Platelet Count 116 X10*3/uL (160-400); Red Blood Count 4.23 X10*6/uL (4.60-5.80); Red Cell Distribution Width 18.7 % (11.0-16.0); White Blood Count 4.3 X10*3/uL (4.8-10.8)
[2022-12-24 12:28] LABS: INTERNATIONAL NORM RATIO 1.1 (0.9-1.1); Prothrombin Time 12.7 SEC (10.0-13.1)
[2022-12-24 12:29] LABS: Alanine Aminotransferase 62 U/L (0-40); Albumin Level 3.5 g/dL (3.5-5.0); Alkaline Phosphatase 156 U/L (39-117); Anion Gap 12 (12-20); Aspartate Amino Transferase 77 U/L (5-37); Bilirubin Total 1.3 mg/dL (0.0-1.0); Blood Urea Nitrogen 10 mg/dL (9-16); Calcium 9.1 mg/dL (8.4-10.2); Carbon Dioxide 21 mmol/L (22-29); Chloride 107 mmol/L (96-108); Cholesterol 134 mg/dL; Estimated Glomerular Filt Rate > 60; Glucose Fasting 194 mg/dL (60-99); Glucose Random 193 mg/dL (60-115); HDL Cholesterol 44 mg/dL; LDL Cholesterol Calculated 79 mg/dl; Potassium 3.8 mmol/L (3.3-5.1); Sodium 136 mmol/L (135-145); Triglycerides 58 mg/dL
== END 2022-12-24 10:23 | disposition home or self-care (01) ==
LOC: HO.LAB 10:22
PROVIDERS: Physician Assistant Medical; PCP Internal Medicine; Visit Provider Internal Medicine Gastroenterology
DX: K76.6 Portal hypertension (principal); K74.60 Unspecified cirrhosis of liver; K25.9 Gastric ulcer, unspecified as acute or chronic, without hemorrhage or perforation; K31.89 Other diseases of stomach and duodenum; E11.9 Type 2 diabetes mellitus without complications; I10 Essential (primary) hypertension; E78.5 Hyperlipidemia, unspecified; D64.9 Anemia, unspecified; R18.8 Other ascites; I85.01 Esophageal varices with bleeding; Z20.828 Contact with and (suspected) exposure to other viral communicable diseases; Z23 Encounter for immunization
CPT/HCPCS: 36415; 80053; 80061; 82043; 82306; 82607; 82746; 85025; 85027; 85610; 90471; 90632; 90746; 99212

== ENCOUNTER 2023-01-22 08:02 | Outpatient (AMB) | payer OTHER, SELFPAY ==
--- NOTE | 2023-01-22 08:19 | A.OFFPC_ITS ---
Vital Signs 01/22/23 08:23 Height 5 ft 6 in Weight 214 lb BMI 34.5 BP 130/72 Blood Pressure Location Lt brachial Position Sitting Intake Visit Reasons: dm Intake Note: Patient here for a follow up DM Director Of Consulting Services Required: No Accompanied by: Self / Same As Patient Allergies lisinopril Adverse Reaction (Intermediate, Verified 01/22/23 08:37) Headache Medication List - Last Reconciled 01/22/23 by Kierra Flanagan MD blood sugar diagnostic (Beibamboouch Ultra Test strips) Use 1 lancet twice a day blood-glucose meter (Tigo EnergyTouch Ultra2 Meter kit) As directed buprenorphine-naloxone 8-2 mg 8 mg sublingual TID carvedilol 3.125 mg See Protocol PO BID 30 days cholecalciferol (vitamin D3) 50 mcg PO DAILY 90 days clonazepam 0.5 mg PO DAILY PRN clotrimazole-betamethasone 1-0.05 % 1 appl topical BID 2 weeks furosemide 20 mg See Protocol PO DAILY 30 days [handheld shower As directed] hydrocortisone 1% (Anti-Itch (hydrocortisone)) 1 appl topical TID PRN 2 weeks ibuprofen 800 mg PO TID insulin glargine (Lantus U-100 Insulin) 35 units (0.35 mL) subcut BEDTIME 90 days insulin syringe-needle U-100 (BD Insulin Syringe Ultra-Fine) Use 1 syringe needle once a day lancets (Tigo EnergyTouch UltraSoft Lancets) Use 1 lancet twice a day lidocaine 5% 1 patch topical DAILY 30 days [nonslip shower mat As directed] pantoprazole 40 mg PO BID 30 days pen needle, diabetic As directed pravastatin 20 mg PO BEDTIME 30 days prazosin 2 mg PO BEDTIME quetiapine 25 mg PO BID ribavirin 200 mg PO DIRECTED 12 weeks Shower Chair As directed sofosbuvir-velpatasvir 400-100 mg 1 tab PO DAILY 12 weeks spironolactone 50 mg See Protocol PO DAILY 30 days sucralfate (Carafate) 1 g PO QIDACHS 14 days varenicline 0.5 mg PO BID Tobacco use date assessed: 10/19/22 Dental Screening Dental Screen Date: 01/22/23 Did you have a dental visit in the last 12 months?: No Did you have a dental problem in the last 6 months where you did not have access to dental care?: No Was dental information given to patient?: Patient has dentist HPI HPI Comments History of Present Illness Details This is a 52-year-old male with diabetes mellitus type 2 on long-term current use of insulin, bipolar disorder, cirrhosis and portal hypertensive gastropathy that comes today for follow-up on his conditions. A1c elevated and I will increase insulin. Bipolar disorder is follow by Psychiatry and has been stable. 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 Require paracentesis due to ascites back in September and due to lower GI bleeding causing anemia require blood transfusions. Was hospitalized in September and went back to ER in October. Cirrhosis and portal hypertensive gastropathy is follow by Gastroenterology as well as hepatitis-C. Blood pressure stable. He denies any chest pain or shortness of breath. Gastrointestinal bleeding has stopped and feels markedly improved. [facility] Medical History Acid reflux Bipolar disorder Diabetes mellitus Essential hypertension GERD (gastroesophageal reflux disease) HCV (hepatitis C virus) History of abdominal paracentesis History of substance abuse Left knee pain Moderate recurrent major depression Normocytic anemia Pure hypercholesterolemia Right knee pain Transaminitis Surgical History Hx of esophagogastroduodenoscopy No pertinent past surgical history Family History Father CVD (cardiovascular disease) Diabetes Maternal Grandmother Diabetes Brother Respiratory failure Asthma Sister No problems noted. Daughter No problems noted. Family/Other Mental health disorder Social History Household Members: Spouse Housing: Apartment Do you presently have visiting nurse or other home services: No Alcohol intake: never Patient Tobacco Use Status: Current everyday Tobacco user Tobacco use type: Cigarette Cigarette Packs Per Day: 1 Cigarettes Per Day: 20.0 Years Smoked: 30 e-Cigarette/Vaping Use: Currently Using Second Hand Smoke Exposure: No service: No Current occupational status: unemployed Current occupation: Right Handed Cognitive needs: Yes Hearing needs: No Vision needs: No Questionnaire Thrive Questionnaire Date Thrive assessed: 09/18/22 JOSEPH-7 AMB Questionnaire JOSEPH-7 Date JOSEPH - 7 assessed: 09/18/22 Source: Developed by Drs. Yaron Pinto, Carmen Black, Cameron Mc and colleagues, with an educational elizabeth from [employer]. Review of Systems Const All systems reviewed & are unremarkable except as noted in HPI and below Eyes Reports no additional complaints, Denies change in vision and Denies other visual disturbances Card Denies chest pain at rest, Denies chest pain with activity, Denies edema, Denies irregular heart rhythm, Denies claudication, Denies dyspnea, Denies dyspnea on exertion, Denies orthopnea, Denies paroxysmal nocturnal dyspnea and Denies slow heart rate Resp Denies cough, Denies dyspnea and Denies dyspnea on exertion GI Denies abdominal pain, Denies change in bowel habits, Denies excessive flatus, Denies nausea and Denies vomiting Denies urinary hesitancy, Denies urinary incontinence and Denies urinary urgency Musc Denies abnormal gait, Denies atrophy, Denies deformity and Denies limited range of motion Skin/Breast Denies bleeding lesions, Denies changing lesions and Denies rash Neuro Denies abnormal gait and Denies lack of coordination Physical exam (Primary Care) Vital Signs: Last Vital Signs BP 130/72 01/22/23 08:23 BMI result Body Mass Index 34.5 Tobacco/Smoking Status: Tobacco use Status Tobacco use date assessed 10/19/22 01/22/23 08:26 Patient Tobacco Use Status Current everyday Tobacco 01/22/23 08:26 Tobacco use type Cigarette 01/22/23 08:26 e-Cigarette/Vaping Use Currently Using 01/22/23 08:26 Thrive Assessment: Date of Thrive Assessment Date Thrive assessed 09/18/22 01/22/23 08:26 Eyes General: appearance normal, both eyes and all related structures Eyelids: Yes eyelids normal Conjunctivae: conjunctivae normal Neck Neck: Yes normal visual inspection and Yes supple Resp Effort & Inspection: normal respiratory effort Auscultation: clear to auscultation bilaterally Cardio Jugular venous distension: no JVD Rate: regular rate Rhythm: regular rhythm Heart sounds: S1 normal heart sound present and S2 normal heart sound present Extrem General: Yes full ROM Results AMB Hemoglobin A1c AMB Hemoglobin A1c 7.3 % Last Edit by ENIO Montanez on 01/22/23 08:3 4 Results Reviewed Results Reviewed: Laboratory Last Values Hgb A1c (Clinic) 7.3 % (4.0-6.0) H 01/22/23 08:17 Assessment and Plan Assessment & Plan (1) Diabetes mellitus: Code(s): E11.9 - Type 2 diabetes mellitus without complications Qualifiers: Diabetes mellitus type: type 2 Diabetes mellitus manager long term care insulin use: unspecified custodial insulin use status Diabetes mellitus complication status: without complication Qualified Code(s): E11.9 - Type 2 diabetes mellitus wit hout complications Plan: Increase insulin. A1c goal is equal or less than 7%. (2) Bipolar disorder: Code(s): F31.9 - Bipolar disorder, unspecified Plan: Follow-up with psychiatry (3) Portal hypertensive gastropathy: Code(s): K76.6 - Portal hypertension; K31.89 - Other diseases of stomach and duodenum Plan: Continue spironolactone. Blood pressure goal is equal or less than 130/80. (4) Cirrhosis: Code(s): K74.60 - Unspecified cirrhosis of liver Plan: Use diuretics as needed. Follow up with Gastroenterology. Orders: Orders Vitamin B12 and Folate 4 Months E53.8 - Deficiency of other specified B group vitamins Comprehensive [place]. Panel Fast 4 Months E11.9 - Type 2 diabetes mellitus without complications IRON PROFILE 4 Months D64.9 - Anemia, unspecified Lipid Panel 4 Months E78.5 - Hyperlipidemia, unspecified Vitamin D 25-OH Total 4 Months E55.9 - Vitamin D deficiency, unspecified Microalbumin, Random (w Creat) 4 Months E11.9 - Type 2 diabetes mellitus without complications Complete Blood Count Auto Diff 4 Months D64.9 - Anemia, unspecified AMB Hemoglobin A1c Today E11.9 - Type 2 diabetes mellitus without complications Medications: Changed From insulin glargine (Lantus U-100 Insulin) 35 units (0.35 mL) subcut BEDTIME 90 days 31.5 mL 1RF E11.9 - Type 2 diabetes mellitus without complications To insulin glargine (Lantus U-100 Insulin) 37 units (0.37 mL) subcut BEDTIME 90 days 33.3 mL 1RF E11.9 - Type 2 diabetes mellitus without complications Discontinued prazosin 2 mg PO BID 60 caps 5RF insulin glargine 35 units (0.35 mL) subcut QPM 90 days 31.5 mL 3RF E11.9 - Type 2 diabetes mellitus without complications Coding Level of Care Code Est Pt Level 4 (48583) Diagnoses Diabetes mellitus E11.9 Diabetes mellitus type: type 2 Diabetes mellitus manager long term care insulin use: unspecified custodial insulin use status Diabetes mellitus complication status: without complication Bipolar disorder F31.9 Portal hypertensive gastropathy K76.6; K31.89 Cirrhosis K74.60 Time Spent (min) 23
[2023-01-22 08:23] VITALS: BP 130/72; BMI 34.5
== END 2023-01-22 08:46 | disposition home or self-care (01) ==
PROVIDERS: Visit Provider Internal Medicine
DX: E11.9 Type 2 diabetes mellitus without complications (principal); F31.9 Bipolar disorder, unspecified; K76.6 Portal hypertension; K74.60 Unspecified cirrhosis of liver; K31.89 Other diseases of stomach and duodenum
CPT/HCPCS: 83036; 99214

== ENCOUNTER 2023-02-26 12:37 | Day surgery (SDC) | payer OTHER, SELFPAY ==
--- NOTE | ~2023-02-26 | US_ITS ---
Paracentesis INDICATIONS: Recurrent ascites After informed and written consent was obtained an official timeout was performed immediately prior to the procedure. PROCEDURE: Initial ultrasound exam demonstrates a small amount of fluid in the abdomen. The skin was prepped and draped in usual fashion in the right lower quadrant. 1% Xylocaine was used for local anesthetic. A 4 [place] Yueh catheter was placed. 1.6 L of clear fluid was drained. US/US paracentesis abd w/image IMPRESSION: Paracentesis with 1.6 L of fluid drained
[2023-02-26 13:13] VITALS: BMI 35.5
[2023-02-26 13:25] LABS: Glucose, Whole Blood 334 mg/dL (60-115)
[2023-02-26] MEDS: 0.9 % Sodium Chloride 500 ML 250 ML IV (14:14)
[2023-02-26] MEDS: Insulin Lispro 100 UNIT/ML 3 ML VIAL 6 UNIT SUBCUT (14:15)
[2023-02-26 15:15] LABS: MANUAL DIFF FLAG NO
[2023-02-26 15:16] LABS: Basophils Percent Auto 0.4 % (0-2); Eosinophils Absolute Auto 0.2 X10*3/uL (0.0-0.4); Eosinophils Percent Auto 5.5 % (0-4); Hematocrit 30.1 % (42.0-52.0); Hemoglobin 9.9 g/dl (14.0-18.0); Lymphocytes Percent Auto 35.6 % (20-40); Mean Corpuscular HGB Conc 32.9 g/dl (31.0-36.0); Mean Corpuscular Hemoglobin 27.7 pg (27.0-33.0); Mean Corpuscular Volume 84.3 fL (80.0-98.0); Mean Platelet Volume 10.5 fL (9.4-12.4); Monocytes Absolute Auto 0.2 X10*3/uL (0.1-1.2); Monocytes Percent Auto 8.4 % (2-11); Neutrophils Absolute Auto 1.4 x10*3/uL (2.0-8.3); Neutrophils Percent Auto 50.1 % (45-73); Red Blood Count 3.57 X10*6/uL (4.60-5.80); Red Cell Distribution Width 14.8 % (11.0-16.0); White Blood Count 2.8 X10*3/uL (4.8-10.8)
[2023-02-26 15:24] LABS: INTERNATIONAL NORM RATIO 1.1 (0.9-1.1); Prothrombin Time 13.7 SEC (11.1-13.3)
[2023-02-26 15:26] LABS: Partial Thromboplastin Time 29.8 SEC (26.0-36.4)
[2023-02-26 15:30] VITALS: BP 130/64; PULSE 72; RESP 22; TEMP 36.7; O2SAT 97
[2023-02-26 15:30] LABS: Platelet Count 80 X10*3/uL (160-400)
[2023-02-26 15:39] LABS: Anion Gap 6 (12-20); Blood Urea Nitrogen 9 mg/dL (9-16); Carbon Dioxide 22 mmol/L (22-29); Chloride 114 mmol/L (96-108); Creatinine Clr Calc Pharmacy 115.1; Estimated Glomerular Filt Rate > 60; Potassium 3.4 mmol/L (3.3-5.1); Sodium 139 mmol/L (135-145)
[2023-02-26 16:30] VITALS: BP 128/62; BP 132/64; PULSE 68; PULSE 70; RESP 16; RESP 18; TEMP 36.6; O2SAT 97; O2SAT 98
== END 2023-02-26 16:35 | disposition home or self-care (01) ==
PROVIDERS: Internal Medicine Gastroenterology; PCP Internal Medicine; Visit Provider Radiology Vascular & Interventional Radiology
DX: R18.8 Other ascites (principal); K74.60 Unspecified cirrhosis of liver; K76.6 Portal hypertension; K31.89 Other diseases of stomach and duodenum; K21.9 Gastro-esophageal reflux disease without esophagitis; D64.9 Anemia, unspecified; I85.01 Esophageal varices with bleeding; B19.20 Unspecified viral hepatitis C without hepatic coma; I10 Essential (primary) hypertension; E11.9 Type 2 diabetes mellitus without complications; E78.5 Hyperlipidemia, unspecified; Z87.11 Personal history of peptic ulcer disease; Z88.8 Allergy status to other drugs, medicaments and biological substances; F17.210 Nicotine dependence, cigarettes, uncomplicated
CPT/HCPCS: 36415; 49083; 80051; 82565; 82947; 84520; 85025; 85610; 85730

== ENCOUNTER → 2023-02-26 14:45 | Outpatient (BNV) | payer OTHER, SELFPAY | PROVIDERS: PCP Internal Medicine; Visit Provider Radiology Vascular & Interventional Radiology | DX: R18.8 Other ascites (principal) | CPT/HCPCS: 49083 ==

== ENCOUNTER 2023-03-11 08:52 | Outpatient (AMB) | payer OTHER, SELFPAY ==
--- NOTE | 2023-03-11 09:04 | A.OFFVIS_ITS ---
Intake Vital Signs 03/11/23 09:07 Height 5 ft 6 in Weight 213 lb 13.574 oz BMI 34.5 BP 124/62 Blood Pressure Location Lt brachial Position Sitting Pulse 73 Intake Visit Reasons: 2 month follow up Intake Note: Vasile presents in the office as a 2 month follow up. CC: He states that he is having pains and bloating in his stomach. His stomach worries him due to the swelling. Supervisor Core Drilling Required: Yes Supervisor [employer] Drilling Name: Kierra [id number] Allergies lisinopril Adverse Reaction (Intermediate, Verified 03/11/23 09:08) Headache HPI 2 month follow up HPI Details 52-year-old male,? with hx of untreated HCV, bipolar d/o, chronic knee pain, DM, HTN< and HLP who I am seeing for f/u for ascites and anemia due to cirrhosis RECAP: I had seen pt 09/2022 for melena, abdominal distention and abdominal pain denied history of alcohol abuse He had been taking ibuprofen q6 h for few years due to chronic knee pain, and is unsure if taking any PPI Patient had a diagnostic paracentesis which was negative for SBP, Imaging: Abdomen pelvic CT shows cirrhosis with diffuse ascites, prominent collateral vessels, EGD -01/2019--erosive gastritis, duodenitis and esophagitis. EGD- 09/2022--varices--banded, gastric ulcer EGD, colo --healed ulcer, varices grade II-not re banded, INTERIM: he has been consistent with diuretics, avoiding nsaids, and lo salt diet not taking drugs no worsening distention, tolerating hep c treatments well denies alcohol use, no smoking no abdominal pain no melena EXAM: GENERAL: The patient is well developed and nontoxic. VITAL SIGNS:see workflow HEENT: Nonicteric sclerae, PERRLA, EOMI. Oropharynx clear. Moist mucous membranes. Conjunctivae appear well perfused. No thyroid mass. CHEST: Chest wall is nontender. HEART: Regular rate and rhythm without murmurs. LUNGS: Clear to auscultation bilaterally. ABDOMEN: Soft, positive bowel sounds, nontender, no organomegaly.no flank tenderness--no shifting dullness SKIN: No rash, no excessive bruising, petechiae, or purpura. NEUROLOGIC: Cranial nerves II-XII intact without motor/sensory deficit. psych--nml A/P; 1/ Cirrhosis, with ascites decompensated due to NSAID use now seems to be heading toward compensation with avoidance of nsaid and less amounts of fluid needing drained --MELD na--9 2/ Gastric ulcer--resolved--h pylori was negative in the past PLAN: 1/ Ascites--resolving, avodi nsaid, lo s alt diet, cont with aldactone and lasix 2/ HE--no evidence of overt disease 3/ Varices, uncertain if these were blee ding or not as he had gastric ulcer, cont with carvedilol, rept EGD in 6 months 4/ HCC screen---Us ordered 5/ Hep C--rx with harvoni and ribavarin combo for 12 weeks (decompensation regimen but he does seem to be compensated now) 6/ Hep B, A vaccine [facility] Medical History Acid reflux Bipolar disorder Diabetes mellitus Essential hypertension GERD (gastroesophageal reflux disease) HCV (hepatitis C virus) History of abdominal paracentesis History of substance abuse Left knee pain Moderate recurrent major depression Normocytic anemia Pure hypercholesterolemia Right knee pain Transaminitis Surgical History Hx of esophagogastroduodenoscopy No pertinent past surgical history Family History Father CVD (cardiovascular disease) Diabetes Maternal Grandmother Diabetes Brother Respiratory failure Asthma Sister No problems noted. Daughter No problems noted. Family/Other Mental health disorder Social History Household Members: Spouse Housing: Apartment Do you presently have visiting nurse or other home services: No Alcohol intake: never Patient Tobacco Use Status: Current everyday Tobacco user Tobacco use type: Cigarette Cigarette Packs Per Day: 1 Cigarettes Per Day: 20.0 Years Smoked: 30 e-Cigarette/Vaping Use: Currently Using Second Hand Smoke Exposure: No service: No Current occupational status: unemployed Current occupation: Right Handed Cognitive needs: Yes Hearing needs: No Vision needs: No Physical Exam Vital Signs: Last Vital Signs Pulse 73 03/11/23 09:07 BP 124/62 03/11/23 09:07 BMI result Body Mass Index 34.5 Assessment & Plan Assessment & Plan (1) Cirrhosis: Code(s): K74.60 - Unspecified cirrhosis of liver (2) Abdominal ascites: Code(s): R18.8 - Other ascites Qualifiers: Ascites type: other type Qualified Code(s): R18.8 - Other ascites Orders: Orders US abdomen quan w elastography Today K74.60 - Unspecified cirrhosis of liver, K75.81 - Nonalcoholic steatohepatitis ([facility]) Coding Level of Care Code Est Pt Level 4 (99391) Diagnoses Cirrhosis K74.60 Other ascites R18.8 Ascites type: other type
[2023-03-11 09:07] VITALS: BP 124/62; PULSE 73; BMI 34.5
== END 2023-03-11 09:32 | disposition home or self-care (01) ==
PROVIDERS: PCP Internal Medicine; Visit Provider Internal Medicine Gastroenterology
DX: K74.60 Unspecified cirrhosis of liver (principal); R18.8 Other ascites
CPT/HCPCS: 99214

== ENCOUNTER → 2023-03-11 08:52 | Outpatient (BNVA) | payer OTHER, SELFPAY | PROVIDERS: PCP Internal Medicine; Visit Provider Internal Medicine Gastroenterology | DX: K74.60 Unspecified cirrhosis of liver (principal); R18.8 Other ascites | CPT/HCPCS: 99212 ==

== ENCOUNTER 2023-04-04 08:41 | Outpatient (AMB) | payer OTHER, SELFPAY ==
--- NOTE | 2023-04-04 08:44 | A.OFFVIS_ITS ---
Intake Intake Visit Reasons: OV - Left Knee Durolane Allergies lisinopril Adverse Reaction (Intermediate, Verified 03/11/23 09:08) Headache HPI OV - Left Knee Durolane HPI Details Vasile is a 52 year old Diabetic man with bilateral knee OA. He presents for a left knee Durolane injection. He denies any changes in medical history. He last received a left knee Durolane injection on 09/14/22. He reports having several emergency abdominal surgeries since he was last seen, each requiring anesthesia. He says he no longer has a fear of anesthesia and would like to discuss surgery for his knee. [facility] Medical History Acid reflux Bipolar disorder Diabetes mellitus Essential hypertension GERD (gastroesophageal reflux disease) HCV (hepatitis C virus) History of abdominal paracentesis History of substance abuse Left knee pain Moderate recurrent major depression Normocytic anemia Pure hypercholesterolemia Right knee pain Transaminitis Surgical History Hx of esophagogastroduodenoscopy No pertinent past surgical history Family History Father CVD (cardiovascular disease) Diabetes Maternal Grandmother Diabetes Brother Respiratory failure Asthma Sister No problems noted. Daughter No problems noted. Family/Other Mental health disorder Social History Household Members: Spouse Housing: Apartment Do you presently have visiting nurse or other home services: No Alcohol intake: never Patient Tobacco Use Status: Current everyday Tobacco user Tobacco use type: Cigarette Cigarette Packs Per Day: 1 Cigarettes Per Day: 20.0 Years Smoked: 30 e-Cigarette/Vaping Use: Currently Using Second Hand Smoke Exposure: No service: No Current occupational status: unemployed Current occupation: Right Handed Cognitive needs: Yes Hearing needs: No Vision needs: No Review of Systems Const All systems reviewed & are unremarkable except as noted in HPI and below Physical Exam Const General: no acute distress, alert and awake Orientation/consciousness: patient oriented x3 HEENT Head: Yes normocephalic and Yes atraumatic Eyes EOM: EOMs intact bilaterally Resp Effort & Inspection: normal respiratory effort and able to speak in complete sentences Cardio Jugular venous distension: no JVD Skin General skin exam: turgor normal Rashes: no rashes Neuro General: patient oriented x3 Extrem Other: Left Knee: Skin C/D/I Psych Appearance: grossly normal Affect: normal affect Attitude: cooperative Office Procedures Joint Injection/Drain Joint Injection/Drain Details: Injected Durolane. Site was prepped using aseptic technique. Patient tolerated the procedure well. Coding - Large joint Procedure code (CPT) selection complete Results Reviewed Results Reviewed: 04/04/23 08:42 Hyaluronate Sodium, Stabilized [Durolane] 60 mg INTRAARTIC .STK-MED ONE Assessment & Plan Assessment & Plan (1) Arthritis of both knees: Code(s): M17.0 - Bilateral primary osteoarthritis of knee Plan: This is a 55 year old man with severe bilateral knee OA, L>R. He presents today for a repeat left knee Durolane injection. I injected his left knee today with Durolane, which he tolerated well. He has been hesitant to undergo a TKA because of a fear of anesthesia but he is willing to proceed forward. he will need dental care but we can begin the process. He has severe left knee OA. 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
== END 2023-04-04 09:41 | disposition home or self-care (01) ==
PROVIDERS: PCP Internal Medicine; Visit Provider Orthopaedic Surgery
DX: M17.0 Bilateral primary osteoarthritis of knee (principal); E11.9 Type 2 diabetes mellitus without complications
CPT/HCPCS: 20610; 99214

== ENCOUNTER → 2023-04-04 08:41 | Outpatient (BNVA) | payer OTHER, SELFPAY | PROVIDERS: PCP Internal Medicine; Visit Provider Orthopaedic Surgery | DX: M17.0 Bilateral primary osteoarthritis of knee (principal); E11.9 Type 2 diabetes mellitus without complications | CPT/HCPCS: 20610; 99212; J7318 ==

== ENCOUNTER 2023-05-23 08:27 | Outpatient (AMB) | payer OTHER, SELFPAY ==
[2023-05-23 08:48] VITALS: BP 126/80; BMI 34.4
--- NOTE | 2023-05-23 08:48 | A.OFFPC_ITS ---
Vital Signs 05/23/23 08:48 Height 5 ft 6 in Weight 213 lb BMI 34.4 BP 126/80 Blood Pressure Location Lt brachial Position Sitting Intake Visit Reasons: PE Intake Note: Patient here for a physical exam Mower Operator Required: No Accompanied by: Self / Same As Patient Allergies lisinopril Adverse Reaction (Intermediate, Verified 05/23/23 09:02) Headache Medication List - Last Reconciled 05/23/23 by Kierra Flanagan MD blood sugar diagnostic ([employer] Ultra Test strips) Use 1 lancet twice a day blood-glucose meter ([employer]uch Ultra2 Meter kit) As directed buprenorphine-naloxone 8-2 mg 8 mg sublingual TID carvedilol 3.125 mg See Protocol PO BID 30 days cholecalciferol (vitamin D3) 50 mcg PO DAILY 90 days clonazepam 0.5 mg PO DAILY PRN clotrimazole-betamethasone 1-0.05 % 1 appl topical BID 2 weeks furosemide 20 mg See Protocol PO DAILY 30 days [handheld shower As directed] hydrocortisone 1% (Anti-Itch (hydrocortisone)) 1 appl topical TID PRN 2 weeks ibuprofen 800 mg PO Q8H insulin glargine (Lantus U-100 Insulin) 37 units (0.37 mL) subcut BEDTIME 90 days insulin syringe-needle U-100 (BD Insulin Syringe Ultra-Fine) Use 1 syringe needle once a day lancets ([employer] UltraSoft Lancets) Use 1 lancet twice a day lidocaine 5% 1 patch topical DAILY 30 days [nonslip shower mat As directed] pantoprazole 40 mg PO BID 30 days pen needle, diabetic As directed pravastatin 20 mg PO BEDTIME 30 days prazosin 2 mg PO BEDTIME quetiapine 25 mg PO BID ribavirin 200 mg PO DIRECTED 12 weeks Shower Chair As directed sofosbuvir-velpatasvir 400-100 mg 1 tab PO DAILY 12 weeks spironolactone 50 mg See Protocol PO DAILY 30 days Tobacco use date assessed: 10/19/22 Dental Screening Dental Screen Date: 05/23/23 Did you have a dental visit in the last 12 months?: No Did you have a dental problem in the last 6 months where you did not have access to dental care?: No Was dental information given to patient?: Patient has dentist HPI HPI Comments History of Present Illness Details This is a 52-year-old male with diabetes mellitus type 2 on long-term current use of insulin, 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 A1c elevated and he has been out of insulin therefore insulin was refill. He does therapeutic paracentesis as needed few times a year in which last 1 was February 2023. Follow by Gastroenterology for his cirrhosis and portal hypertensive gastropathy. Blood pressure stable. Has history of substance abuse and has been in remission for years. Well control with Suboxone. Depression and bipolar disorder are stable with medications and he is follow by Psychiatry. Last colonoscopy was 2022 showing hyperplastic polyp. Had an episode of pancytopenia and CBC will be repeated. Denies any active bleeding at the moment. [facility] Medical History (Updated 05/23/23 @ 09:34 by Kierra Flanagan MD) GERD (gastroesophageal reflux disease) Normocytic anemia History of substance abuse Bipolar disorder Moderate recurrent major depression HCV (hepatitis C virus) Acid reflux Right knee pain Transaminitis Left knee pain Pure hypercholesterolemia Essential hypertension Diabetes mellitus Surgical History (Updated 05/23/23 @ 09:16 by Kierra Flanagan MD) History of abdominal paracentesis Hx of esophagogastroduodenoscopy Family History (Updated 05/23/23 @ 09:17 by Kierra Flanagan MD) Father CVD (cardiovascular disease) Diabetes Thyroid disease Maternal Grandmother Diabetes Brother Respiratory failure Asthma Sister No problems noted. Daughter No problems noted. Family/Other Mental health disorder Mother Mental health disorder Essential hypertension Social History Household Members: Spouse Housing: Apartment Do you presently have visiting nurse or other home services: No Alcohol intake: never Patient Tobacco Use Status: Current everyday Tobacco user Tobacco use type: Cigarette Cigarettes Per Day: 3 Years Smoked: 30 e-Cigarette/Vaping Use: Currently Using Second Hand Smoke Exposure: No service: No Current occupational status: unemployed Current occupation: Right Handed Cognitive needs: Yes Hearing needs: No Vision needs: No Questionnaire Thrive Questionnaire Date Thrive assessed: 09/18/22 JOSEPH-7 AMB Questionnaire JOSEPH-7 Date JOSEPH - 7 assessed: 09/18/22 Source: Developed by Drs. Yaron Pinto, Carmen Black, Cameron Mc and colleagues, with an educational elizabeth from [employer]. Review of Systems Const All systems reviewed & are unremarkable except as noted in HPI and below Eyes Reports no additional complaints, Denies change in vision and Denies other visual disturbances Card Denies chest pain at rest, Denies chest pain with activity, Denies edema, Denies irregular heart rhythm, Denies claudication, Denies dyspnea, Denies dyspnea on exertion, Denies orthopnea, Denies paroxysmal nocturnal dyspnea and Denies slow heart rate Resp Denies cough, Denies dyspnea and Denies dyspnea on exertion GI Denies abdominal pain, Denies change in bowel habits, Denies excessive flatus, Denies nausea and Denies vomiting Denies urinary hesitancy, Denies urinary incontinence and Denies urinary urgency Musc Denies abnormal gait, Denies atrophy, Denies deformity and Denies limited range of motion Skin/Breast Denies bleeding lesions, Denies changing lesions and Denies rash Neuro Denies abnormal gait and Denies lack of coordination Physical exam (Primary Care) Vital Signs: Last Vital Signs BP 126/80 05/23/23 08:48 BMI result Body Mass Index 34.4 Tobacco/Smoking Status: Tobacco use Status Tobacco use date assessed 10/19/22 05/23/23 08:56 Patient Tobacco Use Status Current everyday Tobacco 05/23/23 08:56 Tobacco use type Cigarette 05/23/23 08:56 e-Cigarette/Vaping Use Currently Using 05/23/23 08:56 Thrive Assessment: Date of Thrive Assessment Date Thrive assessed 09/18/22 05/23/23 08:56 Const Orientation/consciousness: patient oriented x3 HENMT Head: Yes normal to inspection, Yes normocephalic and Yes atraumatic Ears: external ears normal Eyes General: appearance normal, both eyes and all related structures Eyelids: Yes eyelids normal Conjunctivae: conjunctivae normal Neck Neck: Yes normal visual inspection and Yes supple Resp Effort & Inspection: normal respiratory effort Auscultation: clear to auscultation bilaterally Cardio Jugular venous distension: no JVD Rate: regular rate Rhythm: regular rhythm Heart sounds: S1 normal heart sound present and S2 normal heart sound present GI Inspection: Yes normal to inspection Palpation (GI): Soft to palpation and nontender Auscultation: normal bowel sounds Skin General skin exam: no rashes or lesions noted Neuro General: patient oriented x3 and no focal motor deficits Extrem General: Yes full ROM Psych Appearance: grossly normal Office Procedures Flu Questionnaire Does the patient have a severe egg allergy?: No Results AMB Hemoglobin A1c AMB Hemoglobin A1c 11.3 % Last Edit by ENIO Montanez on 05/23/23 09: 08 Immunizations flu vacc [id number] 6mos up(PF) 60 mcg(15 mcgx4)/0.5 mL IM syringe Performing Provider: Kierra Flanagan MD [facility] Documented (not given) by: ENIO Montanez on 05/23/23 09:01 Reason Not Given: Patient Refused Results Reviewed Results Reviewed: Laboratory Last Values Hgb A1c (Clinic) 11.3 % (4.0-6.0) H 05/23/23 08:57 Assessment and Plan Assessment & Plan (1) Physical exam: Code(s): Z00.00 - Encounter for general adult medical examination without abnormal findings Plan: Repeat in a year. (2) Portal hypertensive gastropathy: Code(s): K76.6 - Portal hypertension; K31.89 - Other diseases of stomach and duodenum Plan: Continue spironolactone. (3) Cirrhosis: Code(s): K74.60 - Unspecified cirrhosis of liver Qualifiers: Hepatic cirrhosis type: unspecified hepatic cirrhosis Ascites presence: with ascites Qualified Code(s): K74.60 - Unspecified cirrhosis of liver; R18.8 - Other ascites Plan: Continue therapeutic paracentesis. Follow up with Gastroenterology. (4) History of substance abuse: Code(s): F19.11 - Other psychoactive substance abuse, in remission Plan: Continue Suboxone follow by Suboxone Clinic. (5) Bipolar disorder: Code(s): F31.9 - Bipolar disorder, unspecified Qualifiers: Active/Remission status: in remission of unspecified degree Qualified Code(s): F31.70 - Bipolar disorder, currently in remission, most recent episode unspecified Plan: Continue Seroquel. Follow-up with psychiatry. (6) Moderate recurrent major depression: Comment: brianda avila [place] Code(s): F33.1 - Major depressive disorder, recurrent, moderate Plan: Continue Seroquel. Follow-up with psychiatry. 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 A1c goal is equal or less than 7%. Orders: Orders Lipid Panel Today E78.5 - Hyperlipidemia, unspecified Microalbumin, Random (w Creat) Today E11.9 - Type 2 diabetes mellitus without complications Vitamin D 25-OH Total Today E55.9 - Vitamin D deficiency, unspecified IRON PROFILE Today D64.9 - Anemia, unspecified Vitamin B12 and Folate Today E53.8 - Deficiency of other specified B group vitamins Comprehensive [place]. Panel Fast Today E11.9 - Type 2 diabetes mellitus without complications AMB Hemoglobin A1c Today E11.9 - Type 2 diabetes mellitus without complications Influenza [id number] Immunization Today Z23 - Encounter for immunization Complete Blood Count Auto Diff Today D64.9 - Anemia, unspecified Medications: New ibuprofen 800 mg PO Q8H 90 days 270 tabs 1RF clotrimazole 1% (Antifungal (clotrimazole)) 1 appl topical BID 4 weeks 30 grams 1RF Changed From carvedilol 3.125 mg See Protocol PO BID 30 days 60 tabs 1RF To carvedilol 3.125 mg See Protocol PO BID 90 days 180 tabs 1RF From pantoprazole 40 mg PO BID 30 days 60 tabs 3RF To pantoprazole 40 mg PO BID 90 days 180 tabs 3RF From pen needle, diabetic As directed 50 ea diabetes mellitus E11.9 - Type 2 diabetes mellitus without complications To pen needle, diabetic Use 1 needle once a day 100 ea 6RF diabetes mellitus E11.9 - Type 2 diabetes mellitus without complications From pravastatin 20 mg PO BEDTIME 30 days 30 tabs 1RF To pravastatin 20 mg PO BEDTIME 90 days 90 tabs 1RF From spironolactone 50 mg See Protocol PO DAILY 30 days 60 tabs 1RF To spironolactone 50 mg See Protocol PO DAILY 90 days 180 tabs 1RF From furosemide 20 mg See Protocol PO DAILY 30 days 30 tabs 1RF To furosemide 20 mg See Protocol PO DAILY 90 days 90 tabs 1RF Refilled insulin glargine (Lantus U-100 Insulin) 37 units (0.37 mL) subcut BEDTIME 90 days 33.3 mL 1RF E11.9 - Type 2 diabetes mellitus without complications blood sugar diagnostic (OneTouch Ultra Test strips) Use 1 lancet twice a day 100 ea 6RF E11.9 - Type 2 diabetes mellitus without complications cholecalciferol (vitamin D3) 50 mcg PO DAILY 90 days 90 caps 1RF E55.9 - Vitamin D deficiency, unspecified hydrocortisone 1% (Anti-Itch (hydrocortisone)) 1 appl topical TID 2 weeks PRN 28.4 grams 1RF skin irritation insulin syringe-needle U-100 (BD Insulin Syringe Ultra-Fine) Use 1 syringe needle once a day 100 ea 4RF E11.9 - Type 2 diabetes mellitus without complications lidocaine 5% leave on most painful area for up to 12 hrs 1 patch topical DAILY 30 days 30 ea 4RF Coding Level of Care Code Est Pt Prev Care 40-64y(98159) Diagnoses Physical exam Z00.00 Portal hypertensive gastropathy K76.6; K31.89 Cirrhosis of liver with ascites, unspecified hepatic cirrhosis type K74.60; R18.8 Hepatic cirrhosis type: unspecified hepatic cirrhosis Ascites presence: with ascites History of substance abuse F19.11 Bipolar affective disorder in remission F31.70 Active/Remission status: in remission of unspecified degree Moderate recurrent major depression F33.1 Type 2 diabetes mellitus without complication, unspecified whether nursing home insulin use E11.9 Diabetes mellitus type: type 2 Diabetes mellitus nursing home insulin 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
== END 2023-05-23 10:17 | disposition home or self-care (01) ==
PROVIDERS: Visit Provider Internal Medicine
DX: Z00.00 Encounter for general adult medical examination without abnormal findings (principal); K76.6 Portal hypertension; K74.60 Unspecified cirrhosis of liver; F19.11 Other psychoactive substance abuse, in remission; E11.9 Type 2 diabetes mellitus without complications; F31.70 Bipolar disorder, currently in remission, most recent episode unspecified; F33.1 Major depressive disorder, recurrent, moderate; K31.89 Other diseases of stomach and duodenum; R18.8 Other ascites
CPT/HCPCS: 83036; 99396

== ENCOUNTER → 2023-06-18 12:12 | Day surgery (SDC) | payer OTHER, SELFPAY ==
--- NOTE | ~2023-06-18 | US_ITS ---
EXAMINATION: US ABDOMEN LIMITED CLINICAL INFORMATION: Evaluation for possible paracentesis. COMPARISON: 02/26/2023 TECHNIQUE: Real-time imaging of the right upper quadrant abdominal viscera. FINDINGS: FREE FLUID: No significant fluid is identified within the abdomen. US/US abdomen limited IMPRESSION: No significant fluid to perform a paracentesis at this time
[2023-06-18 12:36] LABS: Glucose, Whole Blood 379 mg/dL (60-115)
[2023-06-18 12:37] VITALS: BMI 34.3
[2023-06-18 12:38] VITALS: BP 131/77; PULSE 90; RESP 20; TEMP 36.8; O2SAT 97
[2023-06-18 13:03] LABS: MANUAL DIFF FLAG NO
[2023-06-18 13:06] LABS: Basophils Percent Auto 0.4 % (0-2); Eosinophils Absolute Auto 0.2 X10*3/uL (0.0-0.4); Eosinophils Percent Auto 3.4 % (0-4); Hematocrit 35.6 % (42.0-52.0); Hemoglobin 12.3 g/dl (14.0-18.0); Lymphocytes Absolute Auto 1.7 X10*3/uL (1.2-4.9); Lymphocytes Percent Auto 37.4 % (20-40); Mean Corpuscular HGB Conc 34.6 g/dl (31.0-36.0); Mean Corpuscular Volume 86.8 fL (80.0-98.0); Mean Platelet Volume 10.1 fL (9.4-12.4); Monocytes Absolute Auto 0.3 X10*3/uL (0.1-1.2); Monocytes Percent Auto 7.4 % (2-11); Neutrophils Absolute Auto 2.3 x10*3/uL (2.0-8.3); Neutrophils Percent Auto 51.4 % (45-73); Red Cell Distribution Width 13.5 % (11.0-16.0); White Blood Count 4.5 X10*3/uL (4.8-10.8)
[2023-06-18 13:07] LABS: Platelet Count 95 X10*3/uL (160-400)
[2023-06-18 13:12] LABS: INTERNATIONAL NORM RATIO 1.1 (0.9-1.1); Prothrombin Time 12.9 SEC (11.1-13.3)
[2023-06-18 13:20] LABS: Anion Gap 12 (12-20); Blood Urea Nitrogen 9 mg/dL (9-16); Carbon Dioxide 25 mmol/L (22-29); Chloride 103 mmol/L (96-108); Creatinine Clr Calc Pharmacy 84.3; Estimated Glomerular Filt Rate > 60; Potassium 3.8 mmol/L (3.3-5.1); Sodium 136 mmol/L (135-145)
--- NOTE | 2023-06-18 13:33 | PC.NURSE ---
per telephone order 10 units sq left arm given of humulin for poc 379 at 1325 pt verbalized understanding of careplan
--- NOTE | 2023-06-18 14:26 | PC.NURSE ---
poc after 10 units of humulin 415at [address] dunbar
[2023-06-18 14:28] LABS: Glucose, Whole Blood 415 mg/dL (60-115)
--- NOTE | 2023-06-18 14:45 | PC.NURSE ---
dr truong tigerred concerning poc 415 after 10 units given sq humulin he prefers the patient not be cancelled but sts its up to radiologist i tigered dr ott
--- NOTE | 2023-06-18 14:52 | PC.NURSE ---
dr hever nieves and pt will have paracentesi and go to the ed afterwards i will give ed charge nurse heads up/report pt aware careplan
--- NOTE | 2023-06-18 14:58 | PC.NURSE ---
report to lorne pritchett rn aware patient will be going to ed after paracetesis
[2023-06-18 15:15] LABS: Glucose, Whole Blood 388 mg/dL (60-115)
[2023-06-18 15:25] VITALS: BP 128/78; PULSE 76; RESP 14; TEMP 37.2; O2SAT 99
== END | disposition home or self-care (01) ==
PROVIDERS: PCP Internal Medicine; Visit Provider Radiology Vascular & Interventional Radiology
DX: K76.9 Liver disease, unspecified (principal); Z53.8 Procedure and treatment not carried out for other reasons; E11.9 Type 2 diabetes mellitus without complications
CPT/HCPCS: 36415; 76705; 80051; 82565; 82947; 84520; 85025; 85610; 85730

== ENCOUNTER 2023-06-26 09:43 | Outpatient (AMB) | payer OTHER, SELFPAY ==
--- NOTE | 2023-06-26 10:11 | MHC.OFFVIS ---
Intake Vital Signs 06/26/23 10:12 Height 5 ft 6 in Weight 210 lb BMI 33.9 BP 129/75 Blood Pressure Location Lt brachial Position Sitting Pulse 87 Intake Visit Reasons: Hep A #2, Hep B#3 Intake Note: Patient follow up for Hep A #2 and Hep B # 3 Patient denies any GI issues. Acute Care Assistant Required: Yes Accompanied by: Self / Same As Patient Allergies lisinopril Adverse Reaction (Intermediate, Verified 07/19/23 10:48) Headache PFSH Medical History GERD (gastroesophageal reflux disease) Normocytic anemia History of substance abuse Bipolar disorder Moderate recurrent major depression HCV (hepatitis C virus) Acid reflux Right knee pain Transaminitis Left knee pain Pure hypercholesterolemia Essential hypertension Diabetes mellitus Surgical History History of abdominal paracentesis Hx of esophagogastroduodenoscopy Family History Father CVD (cardiovascular disease) Diabetes Thyroid disease Maternal Grandmother Diabetes Brother Respiratory failure Asthma Sister No problems noted. Daughter No problems noted. Family/Other Mental health disorder Mother Mental health disorder Essential hypertension Social History Household Members: Spouse Housing: Apartment Do you presently have visiting nurse or other home services: No Alcohol intake: never Patient Tobacco Use Status: Current everyday Tobacco user Tobacco use type: Cigarette Cigarettes Per Day: 3 Years Smoked: 30 e-Cigarette/Vaping Use: Currently Using Second Hand Smoke Exposure: No Advance Directives: No Advance Directives Information Provided: Yes service: No Current occupational status: unemployed Current occupation: Right Handed Cognitive needs: Yes Hearing needs: No Vision needs: No Physical Exam Vital Signs: Last Vital Signs Pulse 87 06/26/23 10:12 BP 129/75 06/26/23 10:12 BMI result Body Mass Index 33.9 Immunizations Havrix (PF) 1,440 LUZ unit/mL intramuscular syringe Performing Provider: Milton Hyatt MD Performing Location: [facility] [place] Gastroenterology Services Administered by: Terrence Tan RN on 06/26/23 11:00 Dose Route Admin Location Dispensed Lot Number Expiration Date [facility] Product Tester 1 mL IM Right Deltoid 1 mL [id number] 02/20/25 71845-388-54 [employer] VIS Given Date VIS Provided VIS Publication Date 06/26/23 Single Vaccine 21 Eligibility Eligibility Date Funding Source Not VFC Eligible 06/26/23 Private Recombivax HB (PF) 10 mcg/mL intramuscular suspension Performing Provider: Milton Hyatt MD Performing Location: [facility] [place] Gastroenterology Services Administered by: Terrence Tan RN on 06/26/23 11:07 Dose Route Admin Location Dispensed Lot Number Expiration Date [facility] Product Tester 1 mL IM Left Deltoid 1 mL [id number] 09/25/24 78855-124-39 [employer] VIS Given Date VIS Provided VIS Publication Date 06/26/23 Single Vaccine 22 Eligibility Eligibility Date Funding Source Not VFC Eligible 06/26/23 Private Assessment & Plan Assessment & Plan (1) Cirrhosis: Code(s): K74.60 - Unspecified cirrhosis of liver Qualifiers: Hepatic cirrhosis type: unspecified hepatic cirrhosis Ascites presence: with ascites Qualified Code(s): K74.60 - Unspecified cirrhosis of liver; R18.8 - Other ascites Plan: vaccination Orders: Orders Hepatitis A Adult Immunization 06/26/23 K74.60 - Unspecified cirrhosis of liver Hepatitis B Adult Immunization 06/26/23 K74.60 - Unspecified cirrhosis of liver Coding Level of Care Code Procedure Only Diagnoses Cirrhosis of liver with ascites, unspecified hepatic cirrhosis type K74.60; R18.8 Hepatic cirrhosis type: unspecified hepatic cirrhosis Ascites presence: with ascites
[2023-06-26 10:12] VITALS: BP 129/75; PULSE 87; BMI 33.9
== END 2023-06-26 10:30 | disposition home or self-care (01) ==
PROVIDERS: PCP Internal Medicine; Visit Provider Internal Medicine Gastroenterology
DX: K74.60 Unspecified cirrhosis of liver (principal)

== ENCOUNTER → 2023-06-26 09:43 | Outpatient (BNVA) | payer OTHER, SELFPAY | PROVIDERS: PCP Internal Medicine; Visit Provider Internal Medicine Gastroenterology | DX: Z23 Encounter for immunization (principal); K74.60 Unspecified cirrhosis of liver; R18.8 Other ascites; Z20.828 Contact with and (suspected) exposure to other viral communicable diseases | CPT/HCPCS: 90471; 90632; 90746 ==

== ENCOUNTER 2023-07-01 12:28 | Outpatient (AMB) | payer OTHER, SELFPAY ==
[2023-07-01 12:36] VITALS: BP 130/82; BMI 34.1
--- NOTE | 2023-07-01 12:36 | MHC.PC.OV ---
Vital Signs 07/01/23 12:36 Height 5 ft 6 in Weight 211 lb BMI 34.1 BP 130/82 Blood Pressure Location Lt brachial Position Sitting Intake Visit Reasons: Pre-op L Total Knee Arthorplasty 07/30 Dr Brody Intake Note: patient here for a pre-op left total knee Arthroplasty 07/30/23 Dr Llamas Crepe Maker Required: No Accompanied by: Self / Same As Patient Allergies lisinopril Adverse Reaction (Intermediate, Verified 07/01/23 12:50) Headache Medication List - Last Reconciled 07/01/23 by Kierra Flanagan MD blood sugar diagnostic ([employer] Ultra Test strips) Use 1 lancet twice a day blood-glucose meter ([employer] Ultra2 Meter kit) As directed buprenorphine-naloxone 8-2 mg 8 mg sublingual TID carvedilol 3.125 mg See Protocol PO BID 90 days cholecalciferol (vitamin D3) 50 mcg PO DAILY 90 days clonazepam 0.5 mg PO DAILY PRN clotrimazole 1% (Antifungal (clotrimazole)) 1 appl topical BID 4 weeks clotrimazole-betamethasone 1-0.05 % 1 appl topical BID 2 weeks furosemide 20 mg See Protocol PO DAILY 90 days [handheld shower As directed] hydrocortisone 1% (Anti-Itch (hydrocortisone)) 1 appl topical TID PRN 2 weeks ibuprofen 800 mg PO Q8H 90 days insulin glargine (Lantus U-100 Insulin) 35 units subcut BEDTIME insulin syringe-needle U-100 (BD Insulin Syringe Ultra-Fine) Use 1 syringe needle once a day lancets ([employer] UltraSoft Lancets) Use 1 lancet twice a day lidocaine 5% 1 patch topical DAILY 30 days [nonslip shower mat As directed] pantoprazole 40 mg PO BID 90 days pen needle, diabetic Use 1 needle once a day pravastatin 20 mg PO BEDTIME 90 days prazosin 2 mg PO BEDTIME quetiapine 25 mg PO BID ribavirin 200 mg PO DIRECTED 12 weeks Shower Chair As directed sofosbuvir-velpatasvir 400-100 mg 1 tab PO DAILY 12 weeks spironolactone 50 mg See Protocol PO DAILY 90 days Tobacco use date assessed: 07/01/23 Dental Screening Dental Screen Date: 07/01/23 Did you have a dental visit in the last 12 months?: No Did you have a dental problem in the last 6 months where you did not have access to dental care?: No Was dental information given to patient?: Patient has dentist HPI HPI Comments History of Present Illness Details This is a 53-year-old male with diabetes mellitus type 2 on long-term current use of insulin, portal hypertensive gastropathy, cirrhosis, bipolar disorder and moderate recurrent major depression that comes today for preop evaluation for left knee arthroplasty scheduled 07/30/2023. A1c not on goal and I will increase Lantus from 35 units to 38 units. Blood pressure stable. He follows with Gastroenterology regarding his cirrhosis that has been well control with paracentesis as needed. Depression and bipolar disorder are follow by Psychiatry and has been stable with medications. Denies any chest pain or shortness of breath. Has 5-7 Mets of ADLs. He has a medium risk patient going to a medium risk surgery. EKG still pending. [facility] Medical History GERD (gastroesophageal reflux disease) Normocytic anemia History of substance abuse Bipolar disorder Moderate recurrent major depression HCV (hepatitis C virus) Acid reflux Right knee pain Transaminitis Left knee pain Pure hypercholesterolemia Essential hypertension Diabetes mellitus Surgical History History of abdominal paracentesis Hx of esophagogastroduodenoscopy Family History Father CVD (cardiovascular disease) Diabetes Thyroid disease Maternal Grandmother Diabetes Brother Respiratory failure Asthma Sister No problems noted. Daughter No problems noted. Family/Other Mental health disorder Mother Mental health disorder Essential hypertension Social History Household Members: Spouse Housing: Apartment Do you presently have visiting nurse or other home services: No Alcohol intake: never Patient Tobacco Use Status: Current everyday Tobacco user Tobacco use type: Cigarette Cigarettes Per Day: 3 Years Smoked: 30 e-Cigarette/Vaping Use: Currently Using Second Hand Smoke Exposure: No service: No Current occupational status: unemployed Current occupation: Right Handed Cognitive needs: Yes Hearing needs: No Vision needs: No Questionnaire PHQ-9 Over the last 2 weeks, how often have you been bothered by any of the following problems? 1. Little interest or pleasure in doing things: several days 2. Feeling down, depressed, or hopeless: more than half the days 3. Trouble falling or staying asleep, or sleeping too much: more than half the days 4. Feeling tired or having little energy: several days 5. Poor appetite or overeating: several days 6. Feeling bad about yourself - or that you are a failure or have let yourself or your family down: several days 7. Trouble concentrating on things, such as reading the newspaper or watching television: not at all 8. Moving or speaking so slowly that other people could have noticed. Or the opposite - being so fidgety or restless that you have been moving around a lot more than usual: nearly every day 9. Thoughts that you would be better off or of hurting yourself in some way: several days Total score: 12 Depression Screening Interpretation: Positive Depression Screening Follow-up: Existing condition, In treatment and Community Mental Health Worker F/U Depression Screening Done: Yes 09990 - PHQ-9 Billing: Yes Source: Developed by Drs. Yaron Pinto, Carmen Black, Cameron cM and colleagues, with an educational elizabeth from [employer]. Thrive Questionnaire Date Thrive assessed: 07/01/23 I am a: Patient What is your living situation today?: I have a steady place to live Within the past 12 months, did the food you bought not last and you didn't have the money to get more?: Never true Within the past 12 months, did you worry whether your food would run out before you got money to buy more?: Never true Do you have trouble paying for medicines?: No Do you have trouble getting transportation to medical appointments?: No Do you have trouble paying your heating and electricity bill?: No Do you have trouble taking care of your child, family member or friend?: No Do you have trouble with day-to-day activities such as bathing, preparing meals, shopping, managing finances, etc.?: No Are you currently unemployed and looking for a job?: No Are you interested in more education?: No Please select the resources that you would like help with: None Currently or been in a relationship where the following occur: no concerns reported AUDIT C Alcohol Use Questionnaire (AUDIT-C) 1. How often do you have a drink containing alcohol?: Never Total Score: 0 JOSEPH-7 AMB Questionnaire JOSEPH-7 Date JOSEPH - 7 assessed: 07/01/23 Feeling nervous, anxious, or on edge: 1 = Several days Not being able to stop or control worryin = Several days Worrying too much about different things: 1 = Several days Trouble relaxin = Several days Being so restless that it is hard to sit still: 1 = Several days Becoming easily annoyed or irritable: 1 = Several days Feeling afraid as if something awful might happen: 1 = Several days Total JOSEPH-7 score (0-4 normal; 5-9 mild; 10-14 moderate; 15-21 severe): 7 Source: Developed by Drs. Yaron Pinto, Carmen Black, Cameron Mc and colleagues, with an educational elizabeth from [employer]. JOSEPH-7 Assessment Billing JOSEPH-7 Assessment Tool: JOSEPH-7 Assessment 77557 Review of Systems Const All systems reviewed & are unremarkable except as noted in HPI and below Eyes Reports no additional complaints, Denies change in vision and Denies other visual disturbances Card Denies chest pain at rest, Denies chest pain with activity, Denies edema, Denies irregular heart rhythm, Denies claudication, Denies dyspnea, Denies dyspnea on exertion, Denies orthopnea, Denies paroxysmal nocturnal dyspnea and Denies slow heart rate Resp Denies cough, Denies dyspnea and Denies dyspnea on exertion GI Denies abdominal pain, Denies change in bowel habits, Denies excessive flatus, Denies nausea and Denies vomiting Denies urinary hesitancy, Denies urinary incontinence and Denies urinary urgency Musc Denies abnormal gait, Denies atrophy, Denies deformity and Denies limited range of motion Skin/Breast Denies bleeding lesions, Denies changing lesions and Denies rash Neuro Denies abnormal gait, Denies behavioral changes and Denies lack of coordination Psych Denies behavioral changes Physical exam (Primary Care) Vital Signs: Last Vital Signs BP 130/82 07/01/23 12:36 BMI result Body Mass Index 34.1 Tobacco/Smoking Status: Tobacco use Status Tobacco use date assessed 07/01/23 07/01/23 12:40 Patient Tobacco Use Status Current everyday Tobacco 07/01/23 12:38 Tobacco use type Cigarette 07/01/23 12:38 e-Cigarette/Vaping Use Currently Using 07/01/23 12:38 PHQ-9: PHQ-9 Score PHQ-9: Total score 12 07/01/23 12:53 Depression Screening Interpretation: Positive Depression Screening Follow-up: Existing condition, In treatment and Community Mental Health Worker F/U Thrive Assessment: Date of Thrive Assessment Date Thrive assessed 07/01/23 07/01/23 12:48 Currently or been in a relationship where the following occur: no concerns reported Eyes General: appearance normal, both eyes and all related structures Eyelids: Yes eyelids normal Conjunctivae: conjunctivae normal Neck Neck: Yes normal visual inspection and Yes supple Resp Effort & Inspection: normal respiratory effort Auscultation: clear to auscultation bilaterally Cardio Jugular venous distension: no JVD Rate: regular rate Rhythm: regular rhythm Heart sounds: S1 normal heart sound present and S2 normal heart sound present GI Inspection: Yes normal to inspection Palpation (GI): Soft to palpation and nontender Auscultation: normal bowel sounds Extrem General: Yes full ROM Assessment and Plan Assessment & Plan (1) Pre-op evaluation: Code(s): Z01.818 - Encounter for other preprocedural examination Plan: EKG still pending for preop clearance. (2) Cirrhosis: Code(s): K74.60 - Unspecified cirrhosis of liver Qualifiers: Hepatic cirrhosis type: unspecified hepatic cirrhosis Ascites presence: with ascites Qualified Code(s): K74.60 - Unspecified cirrhosis of liver; R18.8 - Other ascites Plan: Follow-up with Gastroenterology. Continue paracentesis as needed. (3) Portal hypertensive gastropathy: Code(s): K76.6 - Portal hypertension; K31.89 - Other diseases of stomach and duodenum Plan: Continue spironolactone. Blood pressure goal is equal or less than 130/80. (4) Bipolar disorder: Code(s): F31.9 - Bipolar disorder, unspecified Qualifiers: Active/Remission status: in remission of unspecified degree Qualified Code(s): F31.70 - Bipolar disorder, currently in remission, most recent episode unspecified Plan: Continue Seroquel. Follow-up with psychiatry. (5) Moderate recurrent major depression: Comment: brianda avila [place] Code(s): F33.1 - Major depressive disorder, recurrent, moderate Plan: Continue Seroquel. Follow-up with psychiatry. (6) Diabetes mellitus: Code(s): E11.9 - Type 2 diabetes mellitus without complications Qualifiers: Diabetes mellitus type: type 2 Diabetes mellitus snf insulin use: unspecified snf insulin use status Diabetes mellitus complication status: without complication Qualified Code(s): E11.9 - Type 2 diabetes mellitus without complications Plan: Increase Lantus to 38 units. A1c goal is equal or less than 7%. Medications: Changed From insulin glargine (Lantus U-100 Insulin) 35 units subcut BEDTIME E11.9 - Type 2 diabetes mellitus without complications To insulin glargine (Lantus U-100 Insulin) 38 units (0.38 mL) subcut BEDTIME 90 days 34.2 mL 1RF E11.9 - Type 2 diabetes mellitus without complications Coding Level of Care Code Est Pt Level 4 (91188) Diagnoses Pre-op evaluation Z01.818 Cirrhosis of liver with ascites, unspecified hepatic cirrhosis type K74.60; R18.8 Hepatic cirrhosis type: unspecified hepatic cirrhosis Ascites presence: with ascites Portal hypertensive gastropathy K76.6; K31.89 Bipolar affective disorder in remission F31.70 Active/Remission status: in remission of unspecified degree Moderate recurrent major depression F33.1 Type 2 diabetes mellitus without complication, unspecified whether meterman insulin use E11.9 Diabetes mellitus type: type 2 Diabetes mellitus snf insulin use: unspecified meterman insulin use status Diabetes mellitus complication status: without complication Additional Codes JOSEPH-7 Assessment Billing - JOSEPH-7 Assessment Tool: JOSEPH-7 Assessment 47639 ([id number]) Time Spent (min) 25
== END 2023-07-01 13:54 | disposition home or self-care (01) ==
PROVIDERS: PCP Internal Medicine; Visit Provider Internal Medicine
DX: K74.60 Unspecified cirrhosis of liver (principal); K76.6 Portal hypertension; F31.70 Bipolar disorder, currently in remission, most recent episode unspecified; E11.9 Type 2 diabetes mellitus without complications; Z01.818 Encounter for other preprocedural examination; R18.8 Other ascites; K31.89 Other diseases of stomach and duodenum
CPT/HCPCS: 96127; 99214

== ENCOUNTER → 2023-07-16 12:44 | Day surgery (SDC) | payer OTHER, SELFPAY ==
--- NOTE | 2023-07-16 13:29 | PC.NURSE ---
AUTOMOBILE APPRAISER USED. PATIENT WANTS TO RESCHEDULE AND FEELS TO AGITATED TO PROCEED WITH HIS PROCEDURE BECAUSE HIS IS IN ICU. NO RESP DISTRESS OR SOB NOTED. I INSTRUCTED PATIENT TO GO THE THE ED IF HE FEELS WORSE. CALLING OFFICE FOR THEM TO RECALL PATIENT BACK TO RESCHEDULE HIS PROCEDURE.
--- NOTE | 2023-07-16 13:33 | PC.NURSE ---
CALLED OFFICE TO RESCHEDULE HIS PROCEDURE WITH ULTRASOUND.
== END ==
PROVIDERS: PCP Internal Medicine; Visit Provider Internal Medicine Gastroenterology
DX: K76.9 Liver disease, unspecified (principal); Z53.20 Procedure and treatment not carried out because of patient's decision for unspecified reasons

== ENCOUNTER 2023-07-19 09:44 | Day surgery (SDC) | payer OTHER, SELFPAY ==
--- NOTE | ~2023-07-19 | US_ITS ---
EXAMINATION: US ABDOMEN LIMITED CLINICAL INFORMATION: Liver disease. Ascites. Check for paracentesis. COMPARISON: Ultrasound abdomen limited 06/18/2023. CT abdomen and pelvis 10/08/2022. Ultrasound abdomen complete 06/01/2022. TECHNIQUE: Real-time imaging of all 4 quadrants. FINDINGS: Limited abdominal imaging performed in order to evaluate for any ascites. All quadrants of the abdomen are evaluated. No fluid is seen within the peritoneal cavity. US/US abdomen limited IMPRESSION: No evidence of ascites.
[2023-07-19 10:48] VITALS: BMI 35.4
[2023-07-19 11:14] LABS: Glucose, Whole Blood 405 mg/dL (60-115)
[2023-07-19] MEDS: Insulin Regular, Human 100 UNIT/ML 3 ML VIAL 10 UNIT IVPUSH (11:20)
[2023-07-19 12:00] VITALS: BP 132/83; PULSE 80; RESP 20; TEMP 36.5; O2SAT 96
--- NOTE | 2023-07-19 14:08 | PC.NURSE ---
07/19/23 late entry On 07/19/23 12:[address] PCP Dr Lugo regarding the patient POC of 405 and coverage . MD informed not fasting, 10 units of insulin IV. Patient denied any symptoms. Patient stated going to MD office after leaving PACU Called the patient who stated he was at home and that he had a pastry and coffee at 7 am and he checked his POC was 179 at home. MD office stated that they would follow up with the patient.
== END 2023-07-19 12:13 | disposition home or self-care (01) ==
PROVIDERS: Physician Assistant Surgical; PCP Internal Medicine; Visit Provider Internal Medicine Gastroenterology
DX: K74.60 Unspecified cirrhosis of liver (principal); R18.8 Other ascites; Z53.9 Procedure and treatment not carried out, unspecified reason; K21.9 Gastro-esophageal reflux disease without esophagitis; D64.9 Anemia, unspecified; I10 Essential (primary) hypertension; E78.00 Pure hypercholesterolemia, unspecified; E11.9 Type 2 diabetes mellitus without complications; F33.1 Major depressive disorder, recurrent, moderate; B19.20 Unspecified viral hepatitis C without hepatic coma; Z88.8 Allergy status to other drugs, medicaments and biological substances; F17.210 Nicotine dependence, cigarettes, uncomplicated
CPT/HCPCS: 76705; 82947

== ENCOUNTER 2023-07-28 08:57 | Inpatient (IN) | payer OTHER, SELFPAY ==
[2023-07-28] VITALS (11 sets, daily range): BP systolic 100–153; BP diastolic 45–84; PULSE 86–114; RESP 14–23; TEMP 36.3–36.8; O2SAT 96–99; BMI 35.5; BMI 34.5
--- NOTE | ~2023-07-28 | US_ITS ---
EXAMINATION: US ABDOMEN COMPLETE CLINICAL INFORMATION: Cirrhosis. COMPARISON: Ultrasound abdomen limited 07/19/2023 and 06/18/2023. CT abdomen and pelvis without contrast 10/08/2022. TECHNIQUE: Real-time imaging of the abdominal viscera. FINDINGS: PANCREAS: Limited visualization. ABDOMINAL AORTA: The proximal, mid, and distal segments are normal in caliber. INFERIOR VENA CAVA: Visualized portions are normal. LIVER: Nodular surface contour. Coarsened echotexture. There is diffuse increased liver parenchymal echogenicity, consistent with infiltrative hepatocellular disease. No definite focal lesion is seen, but evaluation is limited due to poor sound beam penetration through the coarse echogenic liver parenchyma. There is no intrahepatic biliary duct dilatation seen. GALLBLADDER: The gallbladder is physiologically distended without evidence of stones, sludge, polyps, wall thickening or pericholecystic fluid. COMMON BILE DUCT: Normal in caliber measuring 0.3 cm in diameter. RIGHT KIDNEY: No hydronephrosis. No renal calculi or focal parenchymal lesions. The kidney measures 11.1 cm in maximum dimension. LEFT KIDNEY: No hydronephrosis. No renal calculi or focal parenchymal lesions. The kidney measures 11.3 cm in maximum dimension. SPLEEN: Enlarged. The spleen measures 17.6 cm in maximum dimension. FREE FLUID: None. US/US abdomen complete IMPRESSION: Hepatic cirrhosis. Splenomegaly.
[2023-07-28 09:44] LABS: MANUAL DIFF FLAG NO
[2023-07-28 09:51] LABS: OBS1 POSITIVE (NEGATIVE)
[2023-07-28 09:52] LABS: Basophils Percent Auto 0.4 % (0-2); Eosinophils Absolute Auto 0.1 X10*3/uL (0.0-0.4); Eosinophils Percent Auto 0.6 % (0-4); Hematocrit 25.2 % (42.0-52.0); Hemoglobin 8.6 g/dl (14.0-18.0); Imm Gran Abs Auto 0.04 X10*3/uL (0.00-0.03); Imm Gran Pct Auto 0.4 % (0.0-0.4); Lymphocytes Percent Auto 18.3 % (20-40); Mean Corpuscular HGB Conc 34.1 g/dl (31.0-36.0); Mean Corpuscular Hemoglobin 29.4 pg (27.0-33.0); Mean Platelet Volume 10.5 fL (9.4-12.4); Monocytes Absolute Auto 0.5 X10*3/uL (0.1-1.2); Monocytes Percent Auto 4.6 % (2-11); Neutrophils Absolute Auto 8.3 x10*3/uL (2.0-8.3); Neutrophils Percent Auto 75.7 % (45-73); Platelet Count 149 X10*3/uL (160-400); Red Blood Count 2.93 X10*6/uL (4.60-5.80); Red Cell Distribution Width 13.4 % (11.0-16.0)
[2023-07-28 09:52] LABS: OBS Int Ctl Valid YES
--- NOTE | 2023-07-28 09:54 | ECG_ITS ---
Test Reason : TACHYCARDIA/GI BLEED Blood Pressure : / mmHG Vent. Rate : 104 BPM Atrial Rate : 104 BPM P-R Int : 138 ms QRS Dur : 088 ms QT Int : 360 ms P-R-T Axes : -10 -28 025 degrees QTc Int : 473 ms Sinus tachycardia Minimal voltage criteria for LVH, may be normal variant ( [place] product ) Borderline ECG No significant changes when compared with the previous EKG of 14 january 2013 Referred By: Jenae Colon Electronically Signed By:PARKER PEREIRA
[2023-07-28 09:58] LABS: INTERNATIONAL NORM RATIO 1.2 (0.9-1.1); Prothrombin Time 14.3 SEC (11.1-13.3)
[2023-07-28 10:03] LABS: Alanine Aminotransferase 28 U/L (0-40); Alkaline Phosphatase 100 U/L (39-117); Anion Gap 14 (12-20); Aspartate Amino Transferase 32 U/L (5-37); Bilirubin Total 0.7 mg/dL (0.0-1.0); Blood Urea Nitrogen 28 mg/dL (9-16); Carbon Dioxide 19 mmol/L (22-29); Chloride 107 mmol/L (96-108); Creatinine Clr Calc Pharmacy 112.4; Estimated Glomerular Filt Rate > 60; Glucose Random 390 mg/dL (60-115); Lipase 48 U/L (8-78); Potassium 3.7 mmol/L (3.3-5.1); Sodium 136 mmol/L (135-145); Total Protein 5.5 g/dL (6.5-8.0)
[2023-07-28 10:08] LABS: Troponin-I High Sensitivity 4.6 ng/L (<3.5-35.0)
--- NOTE | 2023-07-28 10:21 | ED.GIBLEED ---
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 Patient reports dizziness. Related Data Home Medications Medication Instructions Recorded Confirmed clonazepam 0.5 mg tablet 0.5 mg PO DAILY PRN Anxiety 08/15/21 07/01/23 quetiapine 50 mg tablet 25 mg PO BID 08/15/21 07/01/23 buprenorphine 8 mg-naloxone 2 mg 8 mg sublingual TID 10/09/22 07/01/23 sublingual film prazosin 2 mg capsule 2 mg PO BEDTIME 10/09/22 07/01/23 insulin glargine 100 unit/mL 40 unit subcut BEDTIME 07/19/23 subcutaneous solution (Lantus U-100 Insulin) Previous Rx's Medication Instructions Recorded blood-glucose meter (OneTouch #1 ea 08/15/21 Ultra2 Meter kit) lancets (UtterzTouch UltraSoft #100 ea 08/15/21 Lancets) Shower Chair #1 ea 05/22/22 handheld shower #1 ea 05/22/22 nonslip shower mat #1 ea 05/22/22 clotrimazole-betamethasone 1 1 appl topical BID 2 weeks #45 09/19/22 %-0.05 % topical cream grams sofosbuvir 400 mg-velpatasvir 100 1 tab PO DAILY 12 weeks #84 tabs 01/17/23 mg tablet ribavirin 200 mg tablet 200 mg PO DIRECTED 12 weeks 01/21/23 #252 tabs blood sugar diagnostic (OneTouch #100 ea 05/23/23 Ultra Test strips) carvedilol 3.125 mg tablet 3.125 mg PO BID 90 days #180 tabs 05/23/23 cholecalciferol (vitamin D3) 50 50 mcg PO DAILY 90 days #90 caps 05/23/23 mcg (2,000 unit) capsule clotrimazole 1 % topical cream 1 appl topical BID 4 weeks #30 05/23/23 (Antifungal (clotrimazole)) grams furosemide 20 mg tablet 20 mg PO DAILY 90 days #90 tabs 05/23/23 hydrocortisone 1 % topical cream 1 appl topical TID PRN skin 05/23/23 (Anti-Itch (hydrocortisone)) irritation 2 weeks #28.4 grams ibuprofen 800 mg tablet 800 mg PO Q8H 90 days #270 tabs 05/23/23 insulin syringe-needle U-100 0.5 #100 ea 05/23/23 mL 31 gauge x 5/16 (BD Insulin Syringe Ultra-Fine) lidocaine 5 % topical patch 1 patch topical DAILY 30 days #30 05/23/23 ea pantoprazole 40 mg tablet,delayed 40 mg PO BID 90 days #180 tabs 05/23/23 release pen needle, diabetic 31 gauge x #100 ea 05/23/23 3/16 pravastatin 20 mg tablet 20 mg PO BEDTIME 90 days #90 tabs 05/23/23 spironolactone 25 mg tablet 50 mg PO DAILY 90 days #180 tabs 05/23/23 Allergies Allergy/AdvReac Type Severity Reaction Status Date / Time lisinopril AdvReac Intermediate Headache Verified 07/28/23 09:25 Review of Systems Review of Systems: Pertinent positives and negatives as stated in [facility] Past Medical History Source: nursing notes reviewed Medical History GERD (gastroesophageal reflux disease) Normocytic anemia History of substance abuse Bipolar disorder Moderate recurrent major depression HCV (hepatitis C virus) Acid reflux Right knee pain Transaminitis Left knee pain Pure hypercholesterolemia Essential hypertension Diabetes mellitus Surgical History History of abdominal paracentesis Hx of esophagogastroduodenoscopy Family History Family History Father CVD (cardiovascular disease) Diabetes Thyroid disease Maternal Grandmother Diabetes Brother Respiratory failure Asthma Sister No problems noted. Daughter No problems noted. Family/Other Mental health disorder Mother Mental health disorder Essential hypertension Social History Social History Household Members: Spouse Housing: Apartment Do you presently have visiting nurse or other home services: No Alcohol intake: never Patient Tobacco Use Status: Current everyday Tobacco user Tobacco use type: Cigarette Cigarettes Per Day: 3 Years Smoked: 30 Smoked in Last 30 Days: No e-Cigarette/Vaping Use: Currently Using Second Hand Smoke Exposure: No Use of substances other than those prescribed or required for medical reasons: No Advance Directives: No Advance Directives Information Provided: No service: No Current occupational status: unemployed Current occupation: Right Handed Cognitive needs: Yes Hearing needs: No Vision needs: No Physical Exam Vital Signs: Vital Signs: Last Vital Signs Temp 98 F 07/28/23 10:17 Pulse 96 07/28/23 10:34 Resp 18 07/28/23 10:34 BP 124/59 L 07/28/23 10:34 Pulse Ox 97 07/28/23 10:04 O2 Del Method Room Air 07/28/23 10:04 BMI result Body Mass Index 35.5 VITAL SIGNS: Reviewed. GENERAL: Well developed, well nourished, in no acute distress. HEAD: Normocephalic/atraumatic EYES: PERRLA, EOMI EARS: Ext canals without abnormality NOSE: Nares patent bilateral OROPHARYNX: no oral lesions noted, posterior pharynx clear, no stigmata of bleeding within the oral cavity NECK: Supple, no adenopathy LUNGS: Normal breath sounds. No adventitious sounds or accessory muscle use. SpO2<97> CARDIOVASCULAR: Regular rate and rhythm without noted murmurs ABDOMEN: Soft, abdomen with diffuse tenderness but no rebound, non-distended with bowel sounds. MUSCULOSKELETAL: No tenderness, deformities, or effusions noted on gross inspection. EXTREMITIES: No cyanosis, clubbing or edema. SKIN: Inspection of the skin reveals no rashes NEUROLOGIC: Alert and oriented x 4. Strength and sensation to light touch were grossly intact x 4. Medications Administered Generic Name Dose Route Start Last Admin Trade Name Freq PRN Reason Stop Dose Admin Pantoprazole Sodium 80 mg/ 100 mls @ 10 mls/hr 07/28/23 10:45 07/28/23 11:07 Sodium Chloride IV 8 mg/hr .Q10H KAM 10 mls/hr Administration 8 MG/HR Octreotide Acetate 500 mcg/ 501 mls @ 25.05 mls/hr 07/28/23 10:45 07/28/23 11:30 Sodium Chloride IVCONT 25 mcg/hr .Q20H KAM 25.05 mls/hr Administration 25 MCG/HR Discontinued Medications Generic Name Dose Route Start Last Admin Trade Name Jorden PRN Reason Stop Dose Admin Sodium Chloride 1,000 mls @ 999 mls/hr 07/28/23 10:30 07/28/23 11:20 Ns IV 07/28/23 11:30 0 mls/hr .Q1H1M KAM Infusion Ceftriaxone Sodium 2 gm/ 50 mls @ 100 mls/hr 07/28/23 10:38 07/28/23 12:25 Sodium Chloride IV 07/28/23 11:07 100 mls/hr ONCE ONE Administration Medical Decision Making Medical Decision Making MDM Narrative: 53-year-old male with history and clinical presentation, DDX: Upper GI bleed/lower GI bleed, has history of esophageal varices as well as a history of melena. Due to several episodes of melena here in the emergency room with soft pressures and tachycardia signed urgent relief was blood for 2 units which will be transfused, patient consented for blood transfusion. 1022: COntacted GI, Dr Domingo recommend IV Protonix/octreotide, only transfusing 1 unit, and administering ceftriaxone. I reviewed all investigations hematologic indices demonstrate a new normocytic anemia with chronically stable thrombocytopenia. Coagulation studies mildly elevated likely secondary to underlying liver disease. Chemistry indices do not demonstrate an AJ but there is an elevated BUN mildly suggestive of upper GI source. Patient is noted be hyperglycemic without evidence of DKA or HHS. Otherwise, liver enzymes are within normal limits. Stool guaiac positive. 1134: I discussed case with inpatient hospitalist who accepts admission. CT GI protocol is pending. But gastroenterology is taking patient to the Gastroenterology suite for endoscopy. Differential Diagnosis Differential Diagnoses: The differential diagnosis associated with the presentation includes Please see the discussion above Admission/Observation Consideration of admission/observation: Escalation of care including admission/observation considered Please see the discussion above Consult Healthcare Provider Management of the patient was discussed with: Hospitalist and Program Director/Morning Show Host Please see the discussion above Lab Data MDM Lab Attestation statement: I reviewed the patient's lab results. Please see the discussion above 07/28/23 09:33 07/28/23 09:33 Labs: Lab Results 07/28/23 07/28/23 07/28/23 Range/Units 09:33 09:35 09:42 WBC 11.0 H (4.8-10.8) X10*3/uL RBC 2.93 L D (4.60-5.80) X10*6/uL Hgb 8.6 L D (14.0-18.0) g/dl Hct 25.2 L D (42.0-52.0) % MCV 86.0 (80.0-98.0) fL MCH 29.4 (27.0-33.0) pg MCHC 34.1 (31.0-36.0) g/dl RDW 13.4 (11.0-16.0) % Plt Count 149 L D (160-400) X10*3/uL MPV 10.5 (9.4-12.4) fL Immature Gran % (Auto) 0.4 (0.0-0.4) % Neut % (Auto) 75.7 H (45-73) % Lymph % (Auto) 18.3 L (20-40) % [place] % (Auto) 4.6 (2-11) % Eos % (Auto) 0.6 (0-4) % Baso % (Auto) 0.4 (0-2) % Lymph # (Auto) 2.0 (1.2-4.9) X10*3/uL [place] # (Auto) 0.5 (0.1-1.2) X10*3/uL Eos # (Auto) 0.1 (0.0-0.4) X10*3/uL Baso # (Auto) 0.0 (0.0-0.2) X10*3/uL Abs Immat Gran (auto) 0.04 H (0.00-0.03) X10*3/uL Absolute Neuts (auto) 8.3 (2.0-8.3) x10*3/uL Absolute Nucleated RBC 0.000 (0.0-0.012) X10*3/uL Nucleated RBC % (auto) 0.0 (0.0-0.2) /100WBC PT 14.3 H (11.1-13.3) SEC INR 1.2 H (0.9-1.1) Sodium 136 (135-145) mmol/L Potassium 3.7 (3.3-5.1) mmol/L Chloride 107 (96-108) mmol/L Carbon Dioxide 19 L (22-29) mmol/L Anion Gap 14 (12-20) BUN 28 H (9-16) mg/dL Creatinine 0.84 (0.5-1.4) mg/dL Estim Creat Clear Calc 112.4 Estimated GFR > 60 Random Glucose 390 H* (60-115) mg/dL Lactic Acid (0.5-2.0) mmol/L Calcium 8.0 L D (8.4-10.2) mg/dL Magnesium 2.0 (1.6-2.6) mg/dL Total Bilirubin 0.7 (0.0-1.0) mg/dL AST 32 (5-37) U/L ALT 28 (0-40) U/L Alkaline Phosphatase 100 (39-117) U/L Troponin I High Sens 4.6 (<3.5-35.0) ng/L Total Protein 5.5 L (6.5-8.0) g/dL Albumin 3.0 L (3.5-5.0) g/dL Lipase 48 (8-78) U/L Beta-Hydroxybutyrate 0.18 (0.02-0.27) mmol/L Stool Occult Blood POSITIVE (NEGATIVE) Blood Type O Positive Antibody Screen NEGATIVE Crossmatch See Detail 07/28/23 Range/Units 10:52 WBC (4.8-10.8) X10*3/uL RBC (4.60-5.80) X10*6/uL Hgb (14.0-18.0) g/dl Hct (42.0-52.0) % MCV (80.0-98.0) fL MCH (27.0-33.0) pg MCHC (31.0-36.0) g/dl RDW (11.0-16.0) % Plt Count (160-400) X10*3/uL MPV (9.4-12.4) fL Immature Gran % (Auto) (0.0-0.4) % Neut % (Auto) (45-73) % Lymph % (Auto) (20-40) % [place] % (Auto) (2-11) % Eos % (Auto) (0-4) % Baso % (Auto) (0-2) % Lymph # (Auto) (1.2-4.9) X10*3/uL [place] # (Auto) (0.1-1.2) X10*3/uL Eos # (Auto) (0.0-0.4) X10*3/uL Baso # (Auto) (0.0-0.2) X10*3/uL Abs Immat Gran (auto) (0.00-0.03) X10*3/uL Absolute Neuts (auto) (2.0-8.3) x10*3/uL Absolute Nucleated RBC (0.0-0.012) X10*3/uL Nucleated RBC % (auto) (0.0-0.2) /100WBC PT (11.1-13.3) SEC INR (0.9-1.1) Sodium (135-145) mmol/L Potassium (3.3-5.1) mmol/L Chloride (96-108) mmol/L Carbon Dioxide (22-29) mmol/L Anion Gap (12-20) BUN (9-16) mg/dL Creatinine (0.5-1.4) mg/dL Estim Creat Clear Calc Estimated GFR Random Glucose (60-115) mg/dL Lactic Acid 2.4 H* (0.5-2.0) mmol/L Calcium (8.4-10.2) mg/dL Magnesium (1.6-2.6) mg/dL Total Bilirubin (0.0-1.0) mg/dL AST (5-37) U/L ALT (0-40) U/L Alkaline Phosphatase (39-117) U/L Troponin I High Sens (<3.5-35.0) ng/L Total Protein (6.5-8.0) g/dL Albumin (3.5-5.0) g/dL Lipase (8-78) U/L Beta-Hydroxybutyrate (0.02-0.27) mmol/L Stool Occult Blood (NEGATIVE) Blood Type Antibody Screen Crossmatch Independent Interpretation I performed an independent interpretation of an: EKG Interpretation: Sinus tachycardia, HR-104, no STEMI, [place]/QRS/QTC is within normal limits. Radiology Impression Discussion of test interpretation with radiology: I have reviewed the radiologist's reading. Radiologist Impression: Please see the discussion above External Record Review External record reviewed: Outpatient record, Prior outpatient labs and Prior outpatient radiology Chronic Conditions Patient?s care impacted by: Diabetes, Hypertension and Other Esophageal varices Critical Care Time Critical Care Time Critical Care Time: Yes Total Critical Care Time: 90 Attestation: I personally attest to this time spent taking care of the patient. Discharge Plan Discharge Clinical Impression: ABLA (acute blood loss anemia), GI bleed Patient Disposition: Admitted As Inpatient
--- NOTE | 2023-07-28 10:24 | PC.NURSE ---
PT ARRIVES FROM HOME REPORTING MULTIPLE EPISODES OF GROSS HEMATOCHEZIA SINCE SATURDAY, STARTED VOMITING KENN RED BLOOD THIS AM. C/O UMBILICAL ABD PAIN 04/02. ARRIVES TACHYCARDIC, TACHYPNEIC, ENDORSING MILD SOB AND DIZZINESS ON EXERTION. APPEARS SLIGHTLY PALE, DRY MMS. HX ESOPHAGEAL VARICES, LOWER GI BLEED, CIRRHOSIS, IDDM. DENIES BLOOD THINNERS, RECENTLY TOOK 2 DOSES OF IBU FOR ARTHRITIC PAIN. #20S IN BILAT FOREARMS, TYPE AND SCREEN DRAWN, OBS SENT. ON ARRIVAL, PT HAD 3 EPISODES OF LARGE BLOODY STOOLS/CLOTS. MAP REMAINS WNL. PT SIGNED CONSETN FOR BLOOD TRANSFUSION. IVF AND FIRST UNIT CURRENTLY HANGING, NO SIGNS OF TRANSFUSION REACTION WITH FIRST UNIT OF PRBCS. WCTM.
[2023-07-28] MEDS: 0.9 % Sodium Chloride 1,000 ML 999 ML IV (10:36)
--- NOTE | 2023-07-28 10:38 | PC.NURSE ---
WAITED FOR FIRST INITIAL 15 MINS OF FIRST UNIT PRBC TO INFUSE BEFORE STARTING 2ND ONE. BOTH NOW RUNNING.
--- NOTE | 2023-07-28 10:44 | PC.NURSE ---
ORDERS RECEIVED TO DISCONTINUE 1 UNIT PRBCS. UNIT STARTED SECOND STOPPED.
[2023-07-28] MEDS: Pantoprazole Sodium 80 MG in 0.9 % Sodium Chloride 80 ML 10 MG IV ×3 (10:59→23:54)
[2023-07-28 11:07] LABS: Beta-Hydroxybutyrate 0.18 mmol/L (0.02-0.27)
[2023-07-28 11:18] LABS: Lactic Acid 2.4 mmol/L (0.5-2.0)
[2023-07-28] MEDS: Octreotide Acetate 500 MCG in 0.9 % Sodium Chloride 500 ML 25.05 MCG IVCONT (11:30)
--- NOTE | 2023-07-28 11:38 | P.HPHOSP_ITS ---
History of Present Illness Date of Service: 07/28/23 Chief Complaint: GI Bleed 53 year old male with history of hep and cirrhosis of the liver, esopheal varices, prior episodes of gib, last EGD/colonoscopy in October 2022-esophageal varices and colon, and internal hemorrhoid polyps, diabetes. He presents today with melana and hematemesis. He states has has been having dark blood in stool for 2 days and this moring had bloody emesis. Hemoglobin is 8.6 on Jun 18 2023 it was 12,3. He is started on octreotide, IV pii and 1 unit of RBC. H is hemodyncamically stable at this time, BP 124/59, P96 Review of Systems 2 Review of Systems: Gen: no fever Resp: no sob, no cough CV: no chest, no DEL CID, no leg edema GI: blood in stool and vomitting blood Neuro: No confusion Yes all other systems are reviewed and are negative COUNTS INCLUDE 234 BEDS AT THE [facility] Medical History GERD (gastroesophageal reflux disease) Normocytic anemia History of substance abuse Bipolar disorder Moderate recurrent major depression HCV (hepatitis C virus) Acid reflux Right knee pain Transaminitis Left knee pain Pure hypercholesterolemia Essential hypertension Diabetes mellitus Family History Father CVD (cardiovascular disease) Diabetes Thyroid disease Maternal Grandmother Diabetes Brother Respiratory failure Asthma Sister No problems noted. Daughter No problems noted. Family/Other Mental health disorder Mother Mental health disorder Essential hypertension Surgical History History of abdominal paracentesis Hx of esophagogastroduodenoscopy Social History Household Members: Family Housing: Apartment Do you presently have visiting nurse or other home services: No Alcohol intake: never Patient Tobacco Use Status: Current everyday Tobacco user Tobacco use type: Cigarette Cigarettes Per Day: 3 Years Smoked: 30 Smoked in Last 30 Days: No e-Cigarette/Vaping Use: Currently Using Second Hand Smoke Exposure: No Use of substances other than those prescribed or required for medical reasons: No Currently Displaying Signs/Symptoms of Drug Intoxication Withdrawal: No Have you been hit, kicked, punched, or otherwise hurt by someone within the past year? If so, by whom?: No Do you feel safe in your current relationship?: Yes Is there a partner from a previous relationship who is making you feel unsafe now?: No Are you made to feel afraid or neglected: No [facility] Practices: [facility] Advance Directives: No Advance Directives Information Provided: No Do you have thoughts of harming others: None Do you have a plan to hurt others: No Plan Recently lost weight without trying: No How much weight loss: Not applicable Eating poorly because of decreased appetite: No Nutrition screen score: 0 Nutrition Risks: No Nutritional Risk Poor oral hygiene: No service: No Current occupational status: unemployed Current occupation: Right Handed Cognitive needs: Yes Hearing needs: No Vision needs: No Meds Allergies Allergy/AdvReac Type Severity Reaction Status Date / Time lisinopril AdvReac Intermediate Headache Verified 07/28/23 09:25 Active Medications: Current Medications Pantoprazole Sodium 80 mg/ (Sodium Chloride) 100 mls @ 10 mls/hr IV .Q10H [facility] Last Admin: 07/28/23 11:07 Dose: 8 mg/hr, 10 mls/hr Octreotide Acetate 500 mcg/ (Sodium Chloride) 501 mls @ 25.05 mls/hr IVCONT .Q20H [facility] Last Admin: 07/28/23 11:30 Dose: 25 mcg/hr, 25.05 mls/hr Home Medications Medication Instructions Recorded Confirmed Last Taken Type clonazepam 0.5 mg tablet 0.5 mg PO DAILY PRN Anxiety 08/15/21 07/28/23 Unknown History quetiapine 50 mg tablet 50 mg PO BID 08/15/21 07/28/23 Unknown History buprenorphine 8 mg-naloxone 2 mg 8 mg sublingual TID 10/09/22 07/28/23 06/18/23 History sublingual film prazosin 2 mg capsule 2 mg PO BEDTIME 10/09/22 07/28/23 Unknown History insulin glargine 100 unit/mL 40 unit subcut BEDTIME 07/19/23 07/28/23 Unknown History subcutaneous solution (Lantus U-100 Insulin) ibuprofen 800 mg tablet 800 mg PO Q8H PRN Pain 07/28/23 07/28/23 Unknown History Physical Exam 2 Vital Signs and Narrative: Vital Signs: Last Vital Signs Temp 98 F 07/28/23 10:17 Pulse 96 07/28/23 10:34 Resp 18 07/28/23 10:34 BP 124/59 L 07/28/23 10:34 Pulse Ox 97 07/28/23 10:04 O2 Del Method Room Air 07/28/23 10:04 BMI result Body Mass Index 35.5 Constitutional: Alert, in no distress, overweight. Mental Status: Oriented to person, place and time. Eyes: Pupils are equal, round and reactive to light. Ear, Nose and Throat: Oropharynx clear, mucous membranes moist. Respiratory: Clear to auscultation. No wheezing, rales or rhonchi. Cardiovascular: S1 S2 regular. No murmurs, rubs or gallops. Gastrointestinal: Abdomen soft, non-tender, non-distended. Normal bowel sounds.? rectal exam deffered Neurologic: Cranial nerves II-XII grossly intact. No focal neurological deficits. Moves all extremities spontaneously.? Skin: No rashes or lesions.? Musculoskeletal: No cyanosis or clubbing. Psychiatric: Normal mood and affect? Results Labs 07/29/23 07:16 07/28/23 09:33 Labs: Laboratory Results - last 24 hr 07/28/23 07/28/23 07/28/23 09:33 09:35 09:42 MCV 86.0 MCH 29.4 MCHC 34.1 RDW 13.4 Plt Count 149 L D MPV 10.5 Immature Gran % (Auto) 0.4 Neut % (Auto) 75.7 H Lymph % (Auto) 18.3 L [place] % (Auto) 4.6 Eos % (Auto) 0.6 Baso % (Auto) 0.4 Lymph # (Auto) 2.0 [place] # (Auto) 0.5 Eos # (Auto) 0.1 Baso # (Auto) 0.0 Abs Immat Gran (auto) 0.04 H Absolute Neuts (auto) 8.3 Absolute Nucleated RBC 0.000 Nucleated RBC % (auto) 0.0 PT 14.3 H INR 1.2 H Anion Gap 14 Estim Creat Clear Calc 112.4 Estimated GFR > 60 Random Glucose 390 H* Lactic Acid Calcium 8.0 L D Magnesium 2.0 Total Bilirubin 0.7 AST 32 ALT 28 Alkaline Phosphatase 100 Total Protein 5.5 L Albumin 3.0 L Lipase 48 Beta-Hydroxybutyrate 0.18 Stool Occult Blood POSITIVE Blood Type O Positive Antibody Screen NEGATIVE Crossmatch See Detail 07/28/23 10:52 MCV MCH MCHC RDW Plt Count MPV Immature Gran % (Auto) Neut % (Auto) Lymph % (Auto) [place] % (Auto) Eos % (Auto) Baso % (Auto) Lymph # (Auto) [place] # (Auto) Eos # (Auto) Baso # (Auto) Abs Immat Gran (auto) Absolute Neuts (auto) Absolute Nucleated RBC Nucleated RBC % (auto) PT INR Anion Gap Estim Creat Clear Calc Estimated GFR Random Glucose Lactic Acid 2.4 H* Calcium Magnesium Total Bilirubin AST ALT Alkaline Phosphatase Total Protein Albumin Lipase Beta-Hydroxybutyrate Stool Occult Blood Blood Type Antibody Screen Crossmatch Assessment and Plan (1) GI bleeding: Status: Acute Plan 53/m with hep c cirrhosis of liver, esophageal varices here with GIB, acute blood loss anemia (ABLA) Acute GIB, suspect upper GI bleed, likely variceal bleed ABLA -NPO -Transfusion -IV PPI, IV octreotide -GI will perform EGD today -Serial H/H Diabetes with Hyperglycemia- -IV Insulin to reduce insulin before surgery -Add sliding scale insulin -Q6 sugar check Acue lactic acidosis--not due to sepsis and is expected to resolve Cirhosis with ascites--resume outpatient meds, BB, lasix , aldactone DVT Prophylaxis--compression device Full code at least 2 midnight admit for acute GIB, ABLA, active variceal bleed that need emergent EGD and serial h/h and blood transfusions Quality Stroke Does the patient have a stroke diagnosis?: No VTE Prior VTE?: No VTE Risk Level:: Medical - moderate - high VTE Device Contraindication: N/A - Device Ordered VTE Drug Contraindication: Treatment Not Tolerated
--- NOTE | 2023-07-28 11:47 | PM.GICN ---
History of Present Illness Data of Consult Service Date: 07/28/23 Requesting physician: Jenae Colon Primary Care Provider: Kierra Flanagan MD HPI Reason for consult: UGIB This is a 53-year-old gentleman with known medical history of untreated hepatitis-C that has led to decompensated cirrhosis with ascites and question variceal bleeding, presents to the hospital for abdominal pain with melena and hematemesis. History was obtained from the patient, who states that Saturday evening, he started noticing black stools and by Saturday he developed diffuse abdominal pain. This morning around 08:00 o'clock he had 1 episode of frankly bloody vomiting without any coffee-grounds or clots. Since then, he has been feeling fatigue and palpitations. On arrival to the emergency room, he was noted to be tachycardic in the 110s with normal blood pressures. Labs were significant for drop in hemoglobin to 8.6 from 12.3 in May with elevated BUN to creatinine ratio. LFTs are normal. Most recent EGD October 2022: 2 small varices. Portal hypertensive gastropathy. September 2022: 3 cords of large varices. No high-risk stigmata. EBL done. Antral ulcer 10 mm. Most recent ultrasound was last week that did not show any ascites. Overdue for HCC screening. In terms of HCV, was started on Ribavirin + Epclusa for HCV 1a with decomp cirrhosis (tx naiive). Unclear if patient completed course as was supposed to finish this after 12 weeks. Review of Systems Review of Systems: Yes all other systems are reviewed and are negative PMFSH Past Medical History Medical History GERD (gastroesophageal reflux disease) Normocytic anemia History of substance abuse Bipolar disorder Moderate recurrent major depression HCV (hepatitis C virus) Acid reflux Right knee pain Transaminitis Left knee pain Pure hypercholesterolemia Essential hypertension Diabetes mellitus Family History Family History Father CVD (cardiovascular disease) Diabetes Thyroid disease Maternal Grandmother Diabetes Brother Respiratory failure Asthma Sister No problems noted. Daughter No problems noted. Family/Other Mental health disorder Mother Mental health disorder Essential hypertension Surgical History Surgical History History of abdominal paracentesis Hx of esophagogastroduodenoscopy Social History Social History Household Members: Spouse Housing: Apartment Do you presently have visiting nurse or other home services: No Alcohol intake: never Patient Tobacco Use Status: Current everyday Tobacco user Tobacco use type: Cigarette Cigarettes Per Day: 3 Years Smoked: 30 Smoked in Last 30 Days: No e-Cigarette/Vaping Use: Currently Using Second Hand Smoke Exposure: No Use of substances other than those prescribed or required for medical reasons: No Advance Directives: No Advance Directives Information Provided: No service: No Current occupational status: unemployed Current occupation: Right Handed Cognitive needs: Yes Hearing needs: No Vision needs: No Meds Allergies Allergy/AdvReac Type Severity Reaction Status Date / Time lisinopril AdvReac Intermediate Headache Verified 07/28/23 09:25 Active Medications: Current Medications Pantoprazole Sodium 80 mg/ (Sodium Chloride) 100 mls @ 10 mls/hr IV .Q10H [facility] Last Admin: 07/28/23 11:07 Dose: 8 mg/hr, 10 mls/hr Octreotide Acetate 500 mcg/ (Sodium Chloride) 501 mls @ 25.05 mls/hr IVCONT .Q20H [facility] Last Admin: 07/28/23 11:30 Dose: 25 mcg/hr, 25.05 mls/hr Home Medications Medication Instructions Recorded Confirmed Last Taken Type clonazepam 0.5 mg tablet 0.5 mg PO DAILY PRN Anxiety 08/15/21 07/01/23 Unknown History quetiapine 50 mg tablet 25 mg PO BID 08/15/21 07/01/23 Unknown History buprenorphine 8 mg-naloxone 2 mg 8 mg sublingual TID 10/09/22 07/01/23 06/18/23 History sublingual film prazosin 2 mg capsule 2 mg PO BEDTIME 10/09/22 07/01/23 Unknown History insulin glargine 100 unit/mL 40 unit subcut BEDTIME 07/19/23 Unknown History subcutaneous solution (Lantus U-100 Insulin) Physical Exam Vital Signs: Vital Signs: Last Vital Signs Temp 98 F 07/28/23 10:17 Pulse 96 07/28/23 10:34 Resp 18 07/28/23 10:34 BP 124/59 L 07/28/23 10:34 Pulse Ox 97 07/28/23 10:04 O2 Del Method Room Air 07/28/23 10:04 BMI result Body Mass Index 35.5 Gen Appear: Middle aged man, lethargic HEENT: No scleral icterus, no bitemporal wasting noted Chest: CTA CVS: Regular S1/S2 no murmurs Abd: soft, tender in lower abd, nondistended Ext: No peripheral edema bilaterally Neuro: A/Ox3, no asterixis Derm: Palmar erythema noted Results Labs 07/28/23 09:33 07/28/23 09:33 Labs: Short CBC 07/28/23 Range/Units 09:33 WBC 11.0 H (4.8-10.8) X10*3/uL Hgb 8.6 L D (14.0-18.0) g/dl Hct 25.2 L D (42.0-52.0) % Plt Count 149 L D (160-400) X10*3/uL BMP 07/28/23 09:33 Sodium 136 Potassium 3.7 Chloride 107 Carbon Dioxide 19 L BUN 28 H Creatinine 0.84 Calcium 8.0 L D Liver Function 07/28/23 Range/Units 09:33 Total Bilirubin 0.7 (0.0-1.0) mg/dL AST 32 (5-37) U/L ALT 28 (0-40) U/L Alkaline Phosphatase 100 (39-117) U/L Albumin 3.0 L (3.5-5.0) g/dL Assessment and Plan (1) Cirrhosis: Qualifiers: Hepatic cirrhosis type: unspecified hepatic cirrhosis Ascites presence: with ascites Qualified Code(s): K74.60 - Unspecified cirrhosis of liver; R18.8 - Other ascites Status: Acute (2) Portal hypertensive gastropathy: Status: Acute (3) GI bleeding: Status: Acute (4) Gastric ulcer: Status: Acute (5) HCV (hepatitis C virus): Qualifiers: Hepatic coma status: without hepatic coma Viral hepatitis chronicity: unspecified Qualified Code(s): B19.20 - Unspecified viral hepatitis C without hepatic coma Status: Acute (6) Esophageal varices with bleeding: Status: Acute Plan #GIB #Decomp cirrhosis - MELD-Na 12 - Chronic HCV 1a tx naive (? SVR) - Hx of esophageal varices and PHG - Hx of ascites (US neg from last week) #Hx of antral ulcer 2023 Bleeding appears to be from an upper source given melena and hematemesis. Differentials include PUD especially given history, variceal bleeding, GAVE, PHG, [place]ul[place]oy. Will book him for EGD once hemodynamically stabilised. In terms of his cirrhosis, overdue for HCC screening. Will also check labs for SVR. Recommendations: -please keep him NPO -maintain at least 2 peripheral IV access at all times -goal hemoglobin of 7 to 8. Please avoid over transfusing as that may increase portal pressure and worsened bleeding if variceal. -octreotide drip, Protonix IV b.i.d., ceftriaxone -EGD today -He would also get an ultrasound right upper quadrant this admission -AFP ordered -HCV labs ordered for ? SVR. HBV labs ordered as was on epclusa and hx of HBV core Ab + -Management of diabetes as per primary team Procedures Date of Service Date of Service: 07/28/23
--- NOTE | 2023-07-28 11:49 | TAR.NOTE ---
UNIT OF PRBCS COMPLETED AFTER 1.5 HRS AFTER STARTING. UNIT INFUSED WITH NO ISSUES, NO REACTION. PRBC UNIT FINISHED TRANSFUSING AT 1149H.
--- NOTE | 2023-07-28 12:13 | MHC.SHP ---
Pre-Procedural Eval Section A - 24 Hr Update-Section A only Date of Service: 07/28/23 The patient is an INPATIENT: Yes The patient has been examined within 24 hours of the surgical procedure. The History & Physical has been completed within 30 days and I have reviewed it.: Yes Section B - Complete if H&P > 30 days Chief Complaint: ABD PAIN VOMITING BLOOD X1 Allergies: Allergies Allergy/AdvReac Type Severity Reaction Status Date / Time lisinopril AdvReac Intermediate Headache Verified 07/28/23 09:25 Plan Diagnosis/Plan: Unchanged I have reviewed the history and physical and performed a pertinent physical examination on my patient. No changes have occurred unless specified. Time Spent With Patient Time: Total time managing care of this patient today ____ minutes.
--- NOTE | 2023-07-28 12:14 | P.OP_ITS ---
Operative Note Operative Note Date of Service: 07/28/23 Narrative: Procedure: Esophagogastroduodenoscopy Endoscopist: Letha Domingo MD Indication: UGIB Anesthesia Provider: Dr Kamari Hernandez Anesthesia Type: MAC ?? EGD Procedure:?? The procedure, indications, preparation and potential complications were reviewed with the patient with the help of a sign language interpreter, who indicated understanding and gave written informed consent to proceed. A physical exam was performed. The endoscope was introduced through the mouth, and advanced to the second part of duodenum. The mucosa was carefully examined on slow withdrawal of the endoscope. The patient tolerated the procedure well. There were no immediate complications.? ? EGD Findings:? * Esophagus:? The Z line was at 40 cm. Three cords of large esophageal varices out of which two had red asiya signs. * Stomach:? Coffee ground heme in stomach. Diffuse congestion and erythema in mosaic pattern consistent with portal hypertensive gastropathy was noted in the whole stomach. No fundal varices were appreciated. * Duodenum:? Old blood in duodenum. Otherwise normal mucosa was noted in the whole of the examined duodenum. Additional intervention: The scope was then withdrawn. A [employer] scientific multi band ligator was affixed to the scope in the usual fashion and the scope was reintroduced. Two bands were applied at 35 cm and 33 cm with complete decompression of esophageal varices. ? EGD Impressions:? * Esophageal varices with high risk stigmata (EVBL x 2) * Blood in stomach * Portal hypertensive gastropathy * Normal duodenum ?? Recommendations:?? * NPO for 4 hours and then clear liquids today. Can be switched to regular diet tomorrow if no rebleeding. * Continue IV octreotide for 72 hours, then switch back to carvedilol 6.25 mg b.i.d. * Continue Protonix IV today, can be switched to p.o. once daily tomorrow * Carafate 1 g liquid q.i.d. for prevention of post banding ulcers * Continue IV ceftriaxone 1 g daily for 7 days. Can be switched to Cipro at the time of discharge. * Repeat EGD in 8 weeks * Remaining recommendations related to his cirrhosis and hep C as outlined in the consultation note
--- NOTE | 2023-07-28 12:14 | W.PM.OPN ---
Operative Note Operative Note Date of Service: 07/28/23 Narrative: Procedure: Esophagogastroduodenoscopy Endoscopist: Letha Domingo MD Indication: UGIB Anesthesia Provider: Dr Kamari Hernandez Anesthesia Type: MAC ?? EGD Procedure:?? The procedure, indications, preparation and potential complications were reviewed with the patient with the help of a assembler dc field yoke, who indicated understanding and gave written informed consent to proceed. A physical exam was performed. The endoscope was introduced through the mouth, and advanced to the second part of duodenum. The mucosa was carefully examined on slow withdrawal of the endoscope. The patient tolerated the procedure well. There were no immediate complications.? ? EGD Findings:? Esophagus:? The Z line was at 40 cm. Three cords of large esophageal varices out of which two had red asiya signs. Stomach:? Coffee ground heme in stomach. Diffuse congestion and erythema in mosaic pattern consistent with portal hypertensive gastropathy was noted in the whole stomach. No fundal varices were appreciated. Duodenum:? Old blood in duodenum. Otherwise normal mucosa was noted in the whole of the examined duodenum. Additional intervention: The scope was then withdrawn. A [employer] multi band ligator was affixed to the scope in the usual fashion and the scope was reintroduced. Two bands were applied at 35 cm and 33 cm with complete decompression of esophageal varices. ? EGD Impressions:? Esophageal varices with high risk stigmata (EVBL x 2) Blood in stomach Portal hypertensive gastropathy Normal duodenum ?? Recommendations:?? NPO for 4 hours and then clear liquids today. Can be switched to regular diet tomorrow if no rebleeding. Continue IV octreotide for 72 hours, then switch back to carvedilol 6.25 mg b.i.d. Continue Protonix IV today, can be switched to p.o. once daily tomorrow Carafate 1 g liquid q.i.d. for prevention of post banding ulcers Continue IV ceftriaxone 1 g daily for 7 days. Can be switched to Cipro at the time of discharge. Repeat EGD in 8 weeks Remaining recommendations related to his cirrhosis and hep C as outlined in the consultation note
--- NOTE | 2023-07-28 12:15 | P.CONAN_ITS ---
HPI - Anesthesia Eval Consult details Narrative: GI bleed PMFSH Active Problems Active Problems: All Active Problems (Updated 07/28/23 @ 11:39 by Saul Hernandez MD) GI bleeding (Acute) Pre-op evaluation (Acute) Cirrhosis (Acute) Portal hypertensive gastropathy (Acute) Patellofemoral pain syndrome of both knees (Acute) Arthritis of both knees (Acute) Hypovitaminosis D (Acute) Anemia (Acute) Physical exam (Acute) Acute lower gastrointestinal bleeding (Acute) Abdominal ascites (Acute) NSAID long-term use (Acute) Esophageal varices with bleeding (Acute) Gastric ulcer (Acute) Hospital discharge follow-up (Acute) HCV (hepatitis C virus) (Acute) History of substance abuse (Acute) Bipolar disorder (Acute) Moderate recurrent major depression (Acute) Acid reflux (Acute) Right knee pain (Acute) Transaminitis (Acute) Left knee pain (Acute) Diabetes mellitus (Acute) Pure hypercholesterolemia (Acute) Essential hypertension (Acute) Past Medical History Medical History GERD (gastroesophageal reflux disease) Normocytic anemia History of substance abuse Bipolar disorder Moderate recurrent major depression HCV (hepatitis C virus) Acid reflux Right knee pain Transaminitis Left knee pain Pure hypercholesterolemia Essential hypertension Diabetes mellitus Family History Family History Father CVD (cardiovascular disease) Diabetes Thyroid disease Maternal Grandmother Diabetes Brother Respiratory failure Asthma Sister No problems noted. Daughter No problems noted. Family/Other Mental health disorder Mother Mental health disorder Essential hypertension Family history of problems with anesthesia: No Surgical History Surgical History History of abdominal paracentesis Hx of esophagogastroduodenoscopy History of Problems with Anesthesia: No Social History Social History Household Members: Spouse Housing: Apartment Do you presently have visiting nurse or other home services: No Alcohol intake: never Patient Tobacco Use Status: Current everyday Tobacco user Tobacco use type: Cigarette Cigarettes Per Day: 3 Years Smoked: 30 Smoked in Last 30 Days: No e-Cigarette/Vaping Use: Currently Using Second Hand Smoke Exposure: No Use of substances other than those prescribed or required for medical reasons: No Advance Directives: No Advance Directives Information Provided: No service: No Current occupational status: unemployed Current occupation: Right Handed Cognitive needs: Yes Hearing needs: No Vision needs: No Meds Allergies Allergy/AdvReac Type Severity Reaction Status Date / Time lisinopril AdvReac Intermediate Headache Verified 07/28/23 09:25 Active Medications: Current Medications Dextrose (Dextrose 50 % 25 Gm/50 Ml Syringe) 25 gm IVPUSH Q15M PRN; Protocol PRN Reason: per Hypoglycemia Standing Ord. Glucose (Glucose Gel 15 Gm Gel..Gram.) 15 gm PO Q15M PRN; Protocol PRN Reason: per Hypoglycemia Standing Ord. Pantoprazole Sodium 80 mg/ (Sodium Chloride) 100 mls @ 10 mls/hr IV .Q10H [facility] Last Admin: 07/28/23 11:07 Dose: 8 mg/hr, 10 mls/hr Octreotide Acetate 500 mcg/ (Sodium Chloride) 501 mls @ 25.05 mls/hr IVCONT .Q20H [facility] Last Admin: 07/28/23 11:30 Dose: 25 mcg/hr, 25.05 mls/hr Insulin Human Lispro (Insulin Lispro 100 Unit/Ml 3 Ml Vial) 0 unit SUBCUT Q6H [facility]; Protocol Ondansetron HCl (Ondansetron Hcl 4 Mg/2 Ml Vial) 4 mg IVPUSH Q8H PRN PRN Reason: Nausea and Vomiting Sodium Chloride (0.9 % Sodium Chloride Flush 3 Ml Syringe) 3 ml IVFLUSH QSHIFT [facility] Home Medications Medication Instructions Recorded Confirmed Last Taken Type clonazepam 0.5 mg tablet 0.5 mg PO DAILY PRN Anxiety 08/15/21 07/01/23 Unknown History quetiapine 50 mg tablet 25 mg PO BID 08/15/21 07/01/23 Unknown History buprenorphine 8 mg-naloxone 2 mg 8 mg sublingual TID 10/09/22 07/01/23 06/18/23 History sublingual film prazosin 2 mg capsule 2 mg PO BEDTIME 10/09/22 07/01/23 Unknown History insulin glargine 100 unit/mL 40 unit subcut BEDTIME 07/19/23 Unknown History subcutaneous solution (Lantus U-100 Insulin) Exam Height,Weight and Vital Signs: Height 5 ft 6 in Weight 99.79 kg Last Vital Signs Temp 98 F 07/28/23 10:17 Pulse 96 07/28/23 10:34 Resp 18 07/28/23 10:34 BP 124/59 L 07/28/23 10:34 Pulse Ox 97 07/28/23 10:04 O2 Del Method Room Air 07/28/23 10:04 Pertinent Lab Results Pertinent Lab Results: Laboratory Tests 07/28/23 07/28/23 07/28/23 09:33 09:35 09:42 WBC 11.0 H RBC 2.93 L D Hgb 8.6 L D Hct 25.2 L D MCV 86.0 MCH 29.4 MCHC 34.1 RDW 13.4 Plt Count 149 L D MPV 10.5 Immature Gran % (Auto) 0.4 Neut % (Auto) 75.7 H Lymph % (Auto) 18.3 L [place] % (Auto) 4.6 Eos % (Auto) 0.6 Baso % (Auto) 0.4 Lymph # (Auto) 2.0 [place] # (Auto) 0.5 Eos # (Auto) 0.1 Baso # (Auto) 0.0 Abs Immat Gran (auto) 0.04 H Absolute Neuts (auto) 8.3 Absolute Nucleated RBC 0.000 Nucleated RBC % (auto) 0.0 PT 14.3 H INR 1.2 H Sodium 136 Potassium 3.7 Chloride 107 Carbon Dioxide 19 L Anion Gap 14 BUN 28 H Creatinine 0.84 Estim Creat Clear Calc 112.4 Estimated GFR > 60 Random Glucose 390 H* Lactic Acid Calcium 8.0 L D Magnesium 2.0 Total Bilirubin 0.7 AST 32 ALT 28 Alkaline Phosphatase 100 Troponin I High Sens 4.6 Total Protein 5.5 L Albumin 3.0 L Lipase 48 Beta-Hydroxybutyrate 0.18 Stool Occult Blood POSITIVE Blood Type O Positive Antibody Screen NEGATIVE Crossmatch See Detail 07/28/23 10:52 WBC RBC Hgb Hct MCV MCH MCHC RDW Plt Count MPV Immature Gran % (Auto) Neut % (Auto) Lymph % (Auto) [place] % (Auto) Eos % (Auto) Baso % (Auto) Lymph # (Auto) [place] # (Auto) Eos # (Auto) Baso # (Auto) Abs Immat Gran (auto) Absolute Neuts (auto) Absolute Nucleated RBC Nucleated RBC % (auto) PT INR Sodium Potassium Chloride Carbon Dioxide Anion Gap BUN Creatinine Estim Creat Clear Calc Estimated GFR Random Glucose Lactic Acid 2.4 H* Calcium Magnesium Total Bilirubin AST ALT Alkaline Phosphatase Troponin I High Sens Total Protein Albumin Lipase Beta-Hydroxybutyrate Stool Occult Blood Blood Type Antibody Screen Crossmatch Airway Mallampati Class: II TM Dist: >3cm Neck ROM: Full Loose/Missing/Broken Teeth: No Heart: RRR Lungs: CTA Assessment and Plan Assessment Anesthesia Assessment: Anesthesia Plan Discussed and Chart Reviewed Final Anesthetic Review Family History of Problems with Anesthesia: No History of Problems with Anesthesia: No NPO: Yes ASA Class: IV and Emergency Final Preanesthetic Review: No Changes in Pt Med Stat, Meds/Allgs Chart Reviewed, Consent Obtained/Reviewed and Anes Risks/Benef Reviewed Patient Risk: High Procedure Risk: Low Anesthetic Plan Anesthetic Plan: MAC: Disposition: Standard PACU
[2023-07-28 12:24] LABS: Glucose, Whole Blood 316 mg/dL (60-115)
[2023-07-28] MEDS: cefTRIAXone sodium 2 GM in 0.9 % Sodium Chloride 50 ML IV (12:25)
[2023-07-28 14:15] LABS: Glucose, Whole Blood 275 mg/dL (60-115)
[2023-07-28] MEDS: Insulin Lispro 100 UNIT/ML 3 ML VIAL SUBCUT ×2 (14:23→18:31)
[2023-07-28] MEDS: 0.9 % Sodium Chloride Flush 3 ML SYRINGE IVFLUSH ×2 (14:24→22:13)
--- NOTE | 2023-07-28 16:24 | PHA.MEDREC ---
Pharmacy Consult ? Medication Reconciliation Pharmacy has completed the medication reconciliation. spoke with patient. He could not remember any of his heart medications such as carvedilol, pravastatin, furosemide. He was able to confirm the rest including the insulin units. He reported that he finished the ribavirin and epclusa about a month ago. He mentioned taking trazodone, didnt mention how or the dose, and not in claim history. Used claim history to verify heart medications and directions.
[2023-07-28 18:31] LABS: Glucose, Whole Blood 189 mg/dL (60-115)
[2023-07-28 21:29] LABS: Glucose, Whole Blood 290 mg/dL (60-115)
[2023-07-28] MEDS: carvediloL 3.125 MG TABLET PO (22:12)
[2023-07-28] MEDS: Buprenorphine/Naloxone 8/2 mg FILM 1 FILM SUBLINGUAL (22:12)
[2023-07-28] MEDS: Omeprazole 20 MG CAPSULE.DR PO (22:12)
[2023-07-28] MEDS: Prazosin HCL 1 MG CAPSULE 2 MG PO (22:12)
[2023-07-28] MEDS: QUEtiapine Fumarate 50 MG TABLET PO (22:12)
[2023-07-28] MEDS: Insulin Glargine,Hum.rec.anlog 100 UNIT/ML 10 ML VIAL 40 UNIT SUBCUT (22:12)
[2023-07-28] MEDS: Pravastatin Sodium 20 MG TABLET PO (22:12)
[2023-07-29] VITALS (11 sets, daily range): BP systolic 100–143; BP diastolic 52–65; PULSE 75–93; RESP 18–20; TEMP 36.3–36.9; O2SAT 93–97
[2023-07-29 07:54] LABS: Glucose, Whole Blood 247 mg/dL (60-115)
[2023-07-29 07:59] LABS: Hematocrit 21.1 % (42.0-52.0); Hemoglobin 7.3 g/dl (14.0-18.0)
[2023-07-29] MEDS: Insulin Lispro 100 UNIT/ML 3 ML VIAL SUBCUT ×4 (09:25→21:17)
[2023-07-29] MEDS: Omeprazole 40 MG CAPSULE.DR PO (09:26)
[2023-07-29] MEDS: Spironolactone 25 MG TABLET 50 MG PO (09:26)
[2023-07-29] MEDS: Furosemide 20 MG TABLET PO (09:26)
[2023-07-29] MEDS: Cholecalciferol (Vitamin D3) 25 MCG TABLET 50 MCG PO (09:26)
[2023-07-29] MEDS: QUEtiapine Fumarate 50 MG TABLET PO ×2 (09:26→21:17)
[2023-07-29] MEDS: carvediloL 3.125 MG TABLET PO ×2 (09:26→21:16)
[2023-07-29] MEDS: 0.9 % Sodium Chloride Flush 3 ML SYRINGE IVFLUSH ×2 (09:27→17:02)
[2023-07-29] MEDS: Lidocaine 4 % Patch ADH..PATCH 1 PATCH TRANSDERMA (09:27)
[2023-07-29] MEDS: Octreotide Acetate 500 MCG in 0.9 % Sodium Chloride 500 ML 25.05 MCG IVCONT (10:39)
--- NOTE | 2023-07-29 10:46 | P.PNIM_ITS ---
Subjective Subjective Date of Service: 07/30/23 Interval History: f/u on variceal bleed, acute blood loss anemia. No active bleed, but H/H fairly low Physical Exam 2 Vital Signs: Vital Signs: Last Vital Signs Temp 97.3 F 07/29/23 07:33 Pulse 81 07/29/23 07:33 Resp 18 07/29/23 07:33 BP 119/58 L 07/29/23 07:33 Pulse Ox 95 07/29/23 07:33 O2 Del Method Room Air 07/29/23 07:33 BMI result Body Mass Index 34.5 Objective Data Active Medications Buprenorphine/Naloxone (Buprenorphine/Naloxone 8/2 Mg Film) 1 film SUBLINGUAL TID [facility] Last Admin: 07/29/23 10:40 Dose: Not Given Documented By: PRISCILLA Non-Admin Reason: Patient Refused Carvedilol (Carvedilol 3.125 Mg Tablet) 3.125 mg PO BID [facility]; Protocol Last Admin: 07/29/23 09:26 Dose: 3.125 mg Documented By: PRISCILLA Clonazepam (Clonazepam 0.5 Mg Tablet) 0.5 mg PO DAILY PRN PRN Reason: Anxiety Dextrose (Dextrose 50 % 25 Gm/50 Ml Syringe) 25 gm IVPUSH Q15M PRN; Protocol PRN Reason: per Hypoglycemia Standing Ord. Furosemide (Furosemide 20 Mg Tablet) 20 mg PO DAILY [facility]; Protocol Last Admin: 07/29/23 09:26 Dose: 20 mg Documented By: PRISCILLA Glucose (Glucose Gel 15 Gm Gel..Gram.) 15 gm PO Q15M PRN; Protocol PRN Reason: per Hypoglycemia Standing Ord. Octreotide Acetate 500 mcg/ (Sodium Chloride) 501 mls @ 25.05 mls/hr IVCONT .Q20H [facility] Last Admin: 07/29/23 10:39 Dose: 25 mcg/hr, 25.05 mls/hr Documented By: PRISCILLA Ceftriaxone Sodium 1 gm/ (Sodium Chloride) 50 mls @ 100 mls/hr IV Q24H [facility] Insulin Glargine (Insulin Glargine,Hum.Rec.Anlog 100 Unit/Ml 10 Ml Vial) 40 unit SUBCUT BEDTIME [facility] Last Admin: 07/28/23 22:12 Dose: 40 unit Documented By: TAMIE Insulin Human Lispro (Insulin Lispro 100 Unit/Ml 3 Ml Vial) 0 unit SUBCUT QIDACHS [facility]; Protocol Last Admin: 07/29/23 09:25 Dose: 4 unit Documented By: PRISCILLA Comments: late breakfast Lidocaine (Lidocaine 4 % Patch Adh..Patch) 1 patch TRANSDERMA DAILY [facility] Last Admin: 07/29/23 09:27 Dose: 1 patch Documented By: PRISCILLA Omeprazole (Omeprazole 40 Mg Capsule.Dr) 40 mg PO DAILY@0630 [facility] Last Admin: 07/29/23 09:26 Dose: 40 mg Documented By: PRISCILLA Ondansetron HCl (Ondansetron Hcl 4 Mg/2 Ml Vial) 4 mg IVPUSH Q8H PRN PRN Reason: Nausea and Vomiting Pravastatin Sodium (Pravastatin Sodium 20 Mg Tablet) 20 mg PO BEDTIME [facility] Last Admin: 07/28/23 22:12 Dose: 20 mg Documented By: TAMIE Prazosin HCl (Prazosin Hcl 1 Mg Capsule) 2 mg PO BEDTIME [facility]; Protocol Last Admin: 07/28/23 22:12 Dose: 2 mg Documented By: TAMIE Quetiapine Fumarate (Quetiapine Fumarate 50 Mg Tablet) 50 mg PO BID [facility] Last Admin: 07/29/23 09:26 Dose: 50 mg Documented By: PRISCILLA Sodium Chloride (0.9 % Sodium Chloride Flush 3 Ml Syringe) 3 ml IVFLUSH [facility] Last Admin: 07/29/23 09:27 Dose: 3 ml Documented By: PRISCILLA Spironolactone (Spironolactone 25 Mg Tablet) 50 mg PO DAILY [facility]; Protocol Last Admin: 07/29/23 09:26 Dose: 50 mg Documented By: PRISCILLA Sucralfate (Sucralfate 1 Gm Tablet) 1 gm PO QIDAS [facility] Vitamin D (Cholecalciferol (Vitamin D3) 25 Mcg Tablet) 50 mcg PO DAILY [facility] Last Admin: 07/29/23 09:26 Dose: 50 mcg Documented By: PRISCILLA Labs 07/30/23 06:44 07/30/23 06:44 Labs: Laboratory Results - last 24 hr 07/28/23 07/28/23 07/28/23 09:33 10:52 12:19 POC Glucose 316 H Lactic Acid 2.4 H* Beta-Hydroxybutyrate 0.18 07/28/23 07/28/23 07/28/23 14:06 18:27 21:24 POC Glucose 275 H 189 H 290 H Lactic Acid Beta-Hydroxybutyrate 07/29/23 07:51 POC Glucose 247 H Lactic Acid Beta-Hydroxybutyrate Assessment and Plan (1) GI bleeding: Status: Acute (2) Esophageal varices with bleeding: Status: Acute (3) ABLA (acute blood loss anemia): Status: Acute Plan 53/m with hep c cirrhosis of liver, esophageal varices here with GIB, acute blood loss anemia (ABLA) #Acute GIB d/t esophageal variceal bleed #ABLA -transfuse yesterday, H/H still sdown -Transfuse 2 units today -IV PPI changed to PO PP, IV octreotide x 72 hrs, ending ; carafate 1 - Prophylaxis Abx with ceftriaxone -follow H/H Diabetes with Hyperglycemia- blood sugar is better -continue Lantus + SSI and sugar check per protocol Acue lactic acidosis--not due to sepsis, d/t cirrhosis, and is expected to resolve Cirhosis with ascites--continue outpatient meds, BB, lasix , aldactone DVT Prophylaxis--compression device d/t anemia, gi bleeding, and encourage ambulation Full code need for inpatient: Acute esophageal variceal bleed, with acute blood loss anemia. Quality Stroke Does the patient have a stroke diagnosis?: No VTE Prior VTE?: No VTE Risk Level:: Medical - moderate - high VTE Device Contraindication: N/A - Device Ordered VTE Drug Contraindication: Treatment Not Tolerated
[2023-07-29 10:58] LABS: Glucose, Whole Blood 280 mg/dL (60-115)
[2023-07-29] MEDS: Sucralfate 1 GM TABLET PO ×3 (13:02→21:17)
[2023-07-29] MEDS: cefTRIAXone sodium 1 GM in 0.9 % Sodium Chloride 50 ML IV (13:02)
--- NOTE | 2023-07-29 14:20 | HO.POSTANES ---
Post Anesthesia Evaluation Post Anesthesia Evaluation Date of Service: 07/29/23 Vital Signs: Vital Signs Temp Pulse Resp BP Pulse Ox O2 Del Method 07/29/23 12:48 98.0 F 75 20 105/53 L 07/29/23 11:09 97.7 F 75 18 100/57 L 95 Room Air 07/29/23 07:33 97.3 F 81 18 119/58 L 95 Room Air 07/29/23 03:58 98.2 F 88 18 105/56 L 95 Room Air Anesthesia: Monitored Mental Status: Awake Pain Control: Satisfactory Nausea/Vomiting: None Hydration: Adequate Anesthesia-Related Issues: No Anes. Related Issues
--- NOTE | 2023-07-29 15:23 | MHC.CM.PN ---
IMM 07/29/23 CM met with pt. he was reluctant to answer questions, said he is independent, does not use home health services. He responded that he does not know when asked if he had transport home upon DC. CM to follow and assist as needed with DC plan.
--- NOTE | 2023-07-29 15:58 | PC.NURSE ---
WHen hanging blood it was noted that the tranfusion the pt received yesterday 07/28/22 in the ED was never documented as completed in the [facility]. water control supervisor aware and stated will follow up with previous transfusion to see when it was ended. drapery hand aware.
[2023-07-29 16:00] LABS: Glucose, Whole Blood 174 mg/dL (60-115)
--- NOTE | 2023-07-29 16:29 | PC.NURSE ---
RBC transfused at 16:10 today 350 ml
[2023-07-29 20:21] LABS: Glucose, Whole Blood 203 mg/dL (60-115)
[2023-07-29] MEDS: Pravastatin Sodium 20 MG TABLET PO (21:17)
[2023-07-29] MEDS: Insulin Glargine,Hum.rec.anlog 100 UNIT/ML 10 ML VIAL 40 UNIT SUBCUT (21:17)
[2023-07-29] MEDS: Prazosin HCL 1 MG CAPSULE 2 MG PO (21:17)
[2023-07-30] VITALS (7 sets, daily range): BP systolic 112–144; BP diastolic 56–73; PULSE 76–88; RESP 16–20; TEMP 36.1–37.1; O2SAT 95–100
[2023-07-30] MEDS: 0.9 % Sodium Chloride Flush 3 ML SYRINGE IVFLUSH ×4 (00:33→20:24)
[2023-07-30] MEDS: Octreotide Acetate 500 MCG in 0.9 % Sodium Chloride 500 ML 25.05 MCG IVCONT (04:33)
[2023-07-30] MEDS: Omeprazole 40 MG CAPSULE.DR PO ×2 (06:09→20:24)
[2023-07-30 07:27] LABS: Glucose, Whole Blood 206 mg/dL (60-115)
[2023-07-30 07:30] LABS: Hematocrit 24.4 % (42.0-52.0); Hemoglobin 8.4 g/dl (14.0-18.0); Mean Corpuscular HGB Conc 34.4 g/dl (31.0-36.0); Mean Corpuscular Hemoglobin 29.7 pg (27.0-33.0); Mean Corpuscular Volume 86.2 fL (80.0-98.0); Mean Platelet Volume 10.1 fL (9.4-12.4); Red Blood Count 2.83 X10*6/uL (4.60-5.80); White Blood Count 3.7 X10*3/uL (4.8-10.8)
[2023-07-30 07:32] LABS: Platelet Count 81 X10*3/uL (160-400)
[2023-07-30 08:07] LABS: Anion Gap 8 (12-20); Blood Urea Nitrogen 16 mg/dL (9-16); Calcium 7.5 mg/dL (8.4-10.2); Carbon Dioxide 24 mmol/L (22-29); Chloride 111 mmol/L (96-108); Creatinine Clr Calc Pharmacy 108.3; Estimated Glomerular Filt Rate > 60; Glucose Random 166 mg/dL (60-115); Potassium 3.3 mmol/L (3.3-5.1); Sodium 140 mmol/L (135-145)
[2023-07-30] MEDS: Furosemide 20 MG TABLET PO (08:08)
[2023-07-30] MEDS: Cholecalciferol (Vitamin D3) 25 MCG TABLET 50 MCG PO (08:08)
[2023-07-30] MEDS: carvediloL 3.125 MG TABLET PO ×2 (08:08→20:24)
[2023-07-30] MEDS: QUEtiapine Fumarate 50 MG TABLET PO ×2 (08:08→20:24)
[2023-07-30] MEDS: Spironolactone 25 MG TABLET 50 MG PO (08:08)
[2023-07-30] MEDS: Lidocaine 4 % Patch ADH..PATCH 1 PATCH TRANSDERMA (08:08)
[2023-07-30] MEDS: Sucralfate 1 GM TABLET PO ×4 (08:09→20:24)
[2023-07-30] MEDS: Insulin Lispro 100 UNIT/ML 3 ML VIAL SUBCUT ×4 (08:09→20:24)
[2023-07-30] MEDS: Buprenorphine/Naloxone 8/2 mg FILM 1 FILM SUBLINGUAL ×2 (08:09→20:25)
--- NOTE | 2023-07-30 08:57 | HO.PM.IMPN ---
Subjective Subjective Date of Service: 07/30/23 Interval History: f/u on variceal bleed, acute blood loss anemia. No active bleed, H and H is better after transfusion yesterday, he feels fine and reports no bleeding Physical Exam Vital Signs: Vital Signs: Last Vital Signs Temp 97.3 F 07/30/23 07:22 Pulse 82 07/30/23 07:22 Resp 19 07/30/23 07:22 BP 133/67 07/30/23 07:22 Pulse Ox 96 07/30/23 07:22 O2 Del Method Room Air 07/30/23 07:22 BMI result Body Mass Index 34.5 General: AO X 3, no acute distress Resp: CTA bilateral CVS: S1,S2,RRR GI: +BS, NT, no distention Skin: No rash Neuro: motor grossly intact Psych: appropriate affect Objective Data Active Medications Buprenorphine/Naloxone (Buprenorphine/Naloxone 8/2 Mg Film) 1 film SUBLINGUAL TID [facility] Last Admin: 07/30/23 08:09 Dose: 1 film Documented By: HERACLIO Carvedilol (Carvedilol 3.125 Mg Tablet) 3.125 mg PO BID [facility]; Protocol Last Admin: 07/30/23 08:08 Dose: 3.125 mg Documented By: HERACLIO Clonazepam (Clonazepam 0.5 Mg Tablet) 0.5 mg PO DAILY PRN PRN Reason: Anxiety Dextrose (Dextrose 50 % 25 Gm/50 Ml Syringe) 25 gm IVPUSH Q15M PRN; Protocol PRN Reason: per Hypoglycemia Standing Ord. Furosemide (Furosemide 20 Mg Tablet) 20 mg PO DAILY [facility]; Protocol Last Admin: 07/30/23 08:08 Dose: 20 mg Documented By: HERACLIO Glucose (Glucose Gel 15 Gm Gel..Gram.) 15 gm PO Q15M PRN; Protocol PRN Reason: per Hypoglycemia Standing Ord. Octreotide Acetate 500 mcg/ (Sodium Chloride) 501 mls @ 25.05 mls/hr IVCONT .Q20H [facility] Last Admin: 07/30/23 04:33 Dose: 25 mcg/hr, 25.05 mls/hr Documented By: ANTOIC Ceftriaxone Sodium 1 gm/ (Sodium Chloride) 50 mls @ 100 mls/hr IV Q24H [facility] Last Infusion: 07/29/23 13:33 Dose: Infused Documented By: INGRID Insulin Glargine (Insulin Glargine,Hum.Rec.Anlog 100 Unit/Ml 10 Ml Vial) 40 unit SUBCUT BEDTIME [facility] Last Admin: 07/29/23 21:17 Dose: 40 unit Documented By: DEJA Insulin Human Lispro (Insulin Lispro 100 Unit/Ml 3 Ml Vial) 0 unit SUBCUT QIDACHS [facility]; Protocol Last Admin: 07/30/23 08:09 Dose: 4 unit Documented By: HERACLIO Lidocaine (Lidocaine 4 % Patch Adh..Patch) 1 patch TRANSDERMA DAILY [facility] Last Admin: 07/30/23 08:08 Dose: 1 patch Documented By: HERACLIO Omeprazole (Omeprazole 40 Mg Capsule.Dr) 40 mg PO DAILY@0630 [facility] Last Admin: 07/30/23 06:09 Dose: 40 mg Documented By: ISADORA Ondansetron HCl (Ondansetron Hcl 4 Mg/2 Ml Vial) 4 mg IVPUSH Q8H PRN PRN Reason: Nausea and Vomiting Pravastatin Sodium (Pravastatin Sodium 20 Mg Tablet) 20 mg PO BEDTIME [facility] Last Admin: 07/29/23 21:17 Dose: 20 mg Documented By: DEJA Prazosin HCl (Prazosin Hcl 1 Mg Capsule) 2 mg PO BEDTIME [facility]; Protocol Last Admin: 07/29/23 21:17 Dose: 2 mg Documented By: DEJA Quetiapine Fumarate (Quetiapine Fumarate 50 Mg Tablet) 50 mg PO BID [facility] Last Admin: 07/30/23 08:08 Dose: 50 mg Documented By: HERACLIO Sodium Chloride (0.9 % Sodium Chloride Flush 3 Ml Syringe) 3 ml IVFLUSH QSHIFT [facility] Last Admin: 07/30/23 08:09 Dose: 3 ml Documented By: HERACLIO Spironolactone (Spironolactone 25 Mg Tablet) 50 mg PO DAILY [facility]; Protocol Last Admin: 07/30/23 08:08 Dose: 50 mg Documented By: HERACLIO Sucralfate (Sucralfate 1 Gm Tablet) 1 gm PO QIDACHS [facility] Last Admin: 07/30/23 08:09 Dose: 1 gm Documented By: HERACLIO Vitamin D (Cholecalciferol (Vitamin D3) 25 Mcg Tablet) 50 mcg PO DAILY [facility] Last Admin: 07/30/23 08:08 Dose: 50 mcg Documented By: HERACLIO Labs 07/30/23 06:44 07/30/23 06:44 Labs: Laboratory Results - last 24 hr 07/28/23 07/29/23 07/29/23 09:42 10:50 15:56 MCV MCH MCHC RDW Plt Count MPV Absolute Nucleated RBC Nucleated RBC % (auto) Anion Gap Estim Creat Clear Calc Estimated GFR POC Glucose 280 H 174 H Random Glucose Calcium Blood Type O Positive Antibody Screen NEGATIVE Crossmatch See Detail 07/29/23 07/30/23 07/30/23 20:18 06:44 07:20 MCV 86.2 MCH 29.7 MCHC 34.4 RDW 14.0 Plt Count 81 L D MPV 10.1 Absolute Nucleated RBC 0.000 Nucleated RBC % (auto) 0.0 Anion Gap 8 L Estim Creat Clear Calc 108.3 Estimated GFR > 60 POC Glucose 203 H 206 H Random Glucose 166 H Calcium 7.5 L D Blood Type Antibody Screen Crossmatch Microbiology Microbiology Results: Microbiology 07/28/23 11:38 Blood Culture - Preliminary Blood - Venous No growth after 24 hours. 07/28/23 10:52 Blood Culture - Preliminary Blood - Venous No growth after 24 hours. Assessment and Plan (1) GI bleeding: Status: Acute (2) Esophageal varices with bleeding: Status: Acute (3) ABLA (acute blood loss anemia): Status: Acute Plan 53/m with hep c cirrhosis of liver, esophageal varices here with GIB, acute blood loss anemia (ABLA) #Acute GIB d/t esophageal variceal bleed #ABLA -transfuse yesterday, H/H still sdown - s/p 4 units of RBCs, h/h better, repeat tomorrow -twice daily PO PP, IV octreotide x 72 hrs, ending ; carafate 1 grm qid - Prophylaxis Abx with ceftriaxone, change to Ceftin at discharge for total of 7 days, started 2/4 -follow H/H Diabetes with Hyperglycemia- blood sugar is better -continue Lantus + SSI and sugar check per protocol Acue lactic acidosis--not due to sepsis, d/t cirrhosis, and is expected to resolve Cirhosis with ascites--continue outpatient meds, BB, lasix , aldactone DVT Prophylaxis--compression device d/t anemia, gi bleeding, and encourage ambulation Full code need for inpatient: Acute esophageal variceal bleed, with acute blood loss anemia. Quality Stroke Does the patient have a stroke diagnosis?: No VTE Prior VTE?: No VTE Risk Level:: Medical - moderate - high VTE Device Contraindication: N/A - Device Ordered VTE Drug Contraindication: Treatment Not Tolerated
--- NOTE | 2023-07-30 09:24 | PM.DS ---
DS: Providers Provider Date of Service: 07/31/23 Date of admission: 07/28/23 12:06 Primary care physician: Kierra Flanagan MD DS: Diagnosis Discharge Diagnosis (1) GI bleeding: Status: Resolved (2) Esophageal varices with bleeding: Status: Resolved (3) ABLA (acute blood loss anemia): Status: Resolved DS: Summary Hospital Course Hospital Course: History of presenting illness: Date of Service: 07/28/23 Chief Complaint: GI Bleed 53 year old male with history of hep and cirrhosis of the liver, esopheal varices, prior episodes of gib, last EGD/colonoscopy in October 2022-esophageal varices and colon, and internal hemorrhoid polyps, diabetes. He presents today with melana and hematemesis. He states has has been having dark blood in stool for 2 days and this moring had bloody emesis. Hemoglobin is 8.6 on Jun 18 2023 it was 12,3. He is started on octreotide, IV ppi and 1 unit of RBC. He is hemodyncamically stable at this time, BP 124/59, P96 Hospital course 53/m with hep c cirrhosis of liver, esophageal varices here with GIB, and admitted to medical floor with a diagnosis of acute blood loss anemia and treated with IV octreotide,iv ppi and prophylactic IV ceftriaxone and received total 4 units of packed RBC hematocrit improved, underwent upper endoscopy by Dr. Domingo and noted to have esophageal varices ,2 bands were applied at 35 cm and 33 cm with complete decompression of esophageal varices, also noted to have portal hypertensive gastropathy, noted to have normal duodenum, diet was gradually advanced, patient noted to have no further episodes of bleeding therefore discharged home on Carafate q.i.d., Ceftin for total 7 days and Prilosec once daily patient is recommended close outpatient follow-up with body rolling machine tender for repeat upper endoscopy in 8 weeks. Patient was noted to have acute lactic acidosis due to cirrhosis and not due to sepsis. ? In regard to diabetes mellitus blood sugars stable recommend to continue diabetic diet, Lantus and monitor blood sugars closely. History of Cirrhosis with ascites recommend to continue outpatient meds, Coreg, lasix , and aldactone and close outpatient GI follow-up. Time Attestation Discharge coordination time: Greater than 30 minutes Quality: Safe Use of Opioids Does Pt have an Active Cancer Diagnosis on the Problem List?: No Quality: Stroke Does the patient have a stroke diagnosis?: No Physical Exam Vital Signs: Vital Signs: Last Vital Signs Temp 97.3 F 07/30/23 07:22 Pulse 82 07/30/23 07:22 Resp 19 07/30/23 07:22 BP 133/67 07/30/23 07:22 Pulse Ox 96 07/30/23 07:22 O2 Del Method Room Air 07/30/23 07:22 BMI result Body Mass Index 34.5 DS: Data Data Completed and Pending Labs on day of discharge: Laboratory Results - last 24 hr 07/28/23 07/29/23 07/29/23 09:42 10:50 15:56 WBC RBC Hgb Hct MCV MCH MCHC RDW Plt Count MPV Absolute Nucleated RBC Nucleated RBC % (auto) Sodium Potassium Chloride Carbon Dioxide Anion Gap BUN Creatinine Estim Creat Clear Calc Estimated GFR POC Glucose 280 H 174 H Random Glucose Calcium Blood Type O Positive Antibody Screen NEGATIVE Crossmatch See Detail 07/29/23 07/30/23 07/30/23 20:18 06:44 07:20 WBC 3.7 L RBC 2.83 L Hgb 8.4 L Hct 24.4 L MCV 86.2 MCH 29.7 MCHC 34.4 RDW 14.0 Plt Count 81 L D MPV 10.1 Absolute Nucleated RBC 0.000 Nucleated RBC % (auto) 0.0 Sodium 140 Potassium 3.3 Chloride 111 H Carbon Dioxide 24 Anion Gap 8 L BUN 16 Creatinine 0.86 Estim Creat Clear Calc 108.3 Estimated GFR > 60 POC Glucose 203 H 206 H Random Glucose 166 H Calcium 7.5 L D Blood Type Antibody Screen Crossmatch Preliminary micro results at discharge 07/28/23 11:38 Blood Culture - Preliminary Blood - Venous No growth after 24 hours. 07/28/23 10:52 Blood Culture - Preliminary Blood - Venous No growth after 24 hours. Discharge Plan Discharge Anticipated Discharge Date/Time: 07/31/23 11:04 Patient Disposition: Home, Self-Care Discharge Diagnosis: Acute esophageal variceal bleed Diabetes with hyperglycemia Acute lactic acidosis Referrals: Kierra Ulloa MD [Primary Care Provider] - 1 Week Discharge Medications: New sucralfate 1 gram Tablet 1 g PO QIDACHS Qty: 120 0RF Continued buprenorphine-naloxone 8-2 mg film 8 mg sublingual TID prazosin 2 mg capsule 2 mg PO BEDTIME clonazepam 0.5 mg tablet 0.5 mg PO DAILY PRN (Reason: Anxiety) quetiapine 50 mg tablet 50 mg PO BID (DME) blood-glucose meter [OneTouch Ultra2 Meter] Kit See Rx Instructions .Route Qty: 1 0RF Rx Instructions: As directed (DME) lancets [OneTouch UltraSoft Lancets] Misc See Rx Instructions .Route Qty: 100 6RF Rx Instructions: Use 1 lancet twice a day carvedilol 3.125 mg tablet 3.125 mg PO BID 90 Days Qty: 180 1RF Protocol: Hold for SBP/HR < HOLD for SBP < : 90 HOLD for HR < : 60 (DME) OneTouch Ultra Test Strip See Rx Instructions .Route Qty: 100 6RF Rx Instructions: Use 1 lancet twice a day cholecalciferol (vitamin D3) 50 mcg (2,000 unit) capsule 50 mcg PO DAILY 90 Days Qty: 90 1RF furosemide 20 mg tablet 20 mg PO DAILY 90 Days Qty: 90 1RF Protocol: Hold for SBP< HOLD for SBP < : 90 hydrocortisone [Anti-Itch (HC)] 1 % cream 1 appl topical TID PRN (Reason: skin irritation) 14 Days Qty: 28.4 1RF lidocaine 5 % adhesive patch,medicated 1 patch topical DAILY 30 Days Qty: 30 4RF Rx Instructions: leave on most painful area for up to 12 hrs pantoprazole 40 mg tablet,delayed release (DR/EC) 40 mg PO BID 90 Days Qty: 180 3RF (DME) pen needle, diabetic 31 gauge x 3/16 needle See Rx Instructions subcut DAILY Qty: 100 6RF Rx Instructions: Use 1 needle once a day pravastatin 20 mg tablet 20 mg PO BEDTIME 90 Days Qty: 90 1RF spironolactone 25 mg tablet 50 mg PO DAILY 90 Days Qty: 180 1RF Protocol: Hold for SBP< HOLD for SBP < : 90 (DME) nonslip shower mat See Rx Instructions .Route .MEDSUPPLY Qty: 1 0RF Rx Instructions: As directed (DME) Shower Chair Misc See Rx Instructions .Route Qty: 1 0RF Rx Instructions: As directed (DME) handheld shower See Rx Instructions .Route .MEDSUPPLY Qty: 1 0RF Rx Instructions: As directed Discontinued ibuprofen 800 mg tablet 800 mg PO Q8H PRN (Reason: Pain) No Action sucralfate [Carafate] 100 mg/mL suspension 10 ml PO BID Qty: 1000 0RF amlodipine 5 mg tablet 5 mg PO DAILY 90 Days Qty: 90 0RF insulin glargine [Lantus U-100 Insulin] 100 unit/mL solution 50 unit subcut BEDTIME 90 Days Qty: 45 2RF insulin lispro [Humalog U-100 Insulin] 100 unit/mL solution 10 unit subcut TID 90 Days Qty: 27 3RF (DME) insulin syringe-needle U-100 [BD Insulin Syringe Ultra-Fine] 0.5 mL 31 gauge x 5/16 syringe See Rx Instructions .ROUTE .MEDSUPPLY Qty: 100 11RF Rx Instructions: Use 1 syringe needle fouir times a day quetiapine 100 mg tablet PO hydrocortisone 1 % cream with perineal applicator topical Discharge Orders: Discharge Order (Routine); Ordered 07/31/23 Ordered By: Keren Hawthorne Diet: Diabetic diet Activity on Discharge: As tolerated Stand Alone Forms: Patient Portal Discharge page Print Language: Maldivian Care Plan Goals: Acute esophageal variceal bleeding resolved status post banding of esophageal varices Repeat EGD in 8 weeks Continue all home medications as above Take Ceftin 1 tablet twice daily for 4 more days Take Carafate 1 tablet 4 times a day for 1 month and then as per stomach specialist Return to check with recurrent upper GI bleed Avoid NSAIDs, no Advil, no Motrin ,or ibuprofen. Health Concerns: Strongly recommend to abstain from smoking Continue all home medications from before Follow diabetic diet and monitor blood sugars Plan of Treatment: Follow-up with your primary care physician and outpatient follow-up with body rolling machine tender Dr. Harish holloway for repeat upper endoscopy in 8 weeks Assessment: As above Discharge Date/Time: 07/31/23 13:01
--- NOTE | 2023-07-30 09:33 | P.PNGI_ITS ---
Subjective Subjective Date of Service: 07/30/23 Interval History: Seen at bedside. Does not report any abdominal pain or further black bowel movements. Vitals have remained stable. Critical Care Time (minutes): 0 Physical Exam 2 Vital Signs: Vital Signs: Last Vital Signs Temp 97.3 F 07/30/23 07:22 Pulse 82 07/30/23 07:22 Resp 19 07/30/23 07:22 BP 133/67 07/30/23 07:22 Pulse Ox 96 07/30/23 07:22 O2 Del Method Room Air 07/30/23 07:22 BMI result Body Mass Index 34.5 General appearance: Appears comfortable Abdomen: Soft, mildly distended, nontender Objective Data Labs 07/30/23 06:44 07/30/23 06:44 Labs: Laboratory Results - last 24 hr 07/28/23 07/29/23 07/29/23 09:42 10:50 15:56 WBC RBC Hgb Hct MCV MCH MCHC RDW Plt Count MPV Absolute Nucleated RBC Nucleated RBC % (auto) Sodium Potassium Chloride Carbon Dioxide Anion Gap BUN Creatinine Estim Creat Clear Calc Estimated GFR POC Glucose 280 H 174 H Random Glucose Calcium Blood Type O Positive Antibody Screen NEGATIVE Crossmatch See Detail 07/29/23 07/30/23 07/30/23 20:18 06:44 07:20 WBC 3.7 L RBC 2.83 L Hgb 8.4 L Hct 24.4 L MCV 86.2 MCH 29.7 MCHC 34.4 RDW 14.0 Plt Count 81 L D MPV 10.1 Absolute Nucleated RBC 0.000 Nucleated RBC % (auto) 0.0 Sodium 140 Potassium 3.3 Chloride 111 H Carbon Dioxide 24 Anion Gap 8 L BUN 16 Creatinine 0.86 Estim Creat Clear Calc 108.3 Estimated GFR > 60 POC Glucose 203 H 206 H Random Glucose 166 H Calcium 7.5 L D Blood Type Antibody Screen Crossmatch Microbiology Microbiology Results: Microbiology 07/28/23 11:38 Blood - Venous Blood Culture - Preliminary No growth after 24 hours. 07/28/23 10:52 Blood - Venous Blood Culture - Preliminary No growth after 24 hours. Procedures Date of Service Date of Service: 07/30/23 Progress Note: A&P Assessment and plan (1) ABLA (acute blood loss anemia): Status: Acute (2) GI bleeding: Status: Acute (3) Cirrhosis: Status: Acute (4) Portal hypertensive gastropathy: Status: Acute (5) Esophageal varices with bleeding: Status: Acute (6) HCV (hepatitis C virus): Status: Acute Plan Received 2 more units overnight for decrease in hemoglobin. However, no signs of overt bleeding. Vitals normal. BUN has also decreased back to baseline. Plan: -continue to monitor CBC -octreotide for total of 72 hours, can DC tomorrow -PPI can be switched to p.o. b.i.d.. -sucralfate q.i.d. to be continued for 14 days total -antibiotic to be continued for total of 7 days. -outpatient repeat EGD will be arranged Time Spent With Patient Time: Total time managing care of this patient today ____ minutes. Quality Stroke Does the patient have a stroke diagnosis?: No VTE Prior VTE?: No VTE Risk Level:: Medical - moderate - high VTE Device Contraindication: N/A - Device Ordered VTE Drug Contraindication: Treatment Not Tolerated
[2023-07-30 11:28] LABS: Glucose, Whole Blood 240 mg/dL (60-115)
[2023-07-30] MEDS: cefTRIAXone sodium 1 GM in 0.9 % Sodium Chloride 50 ML IV (12:16)
[2023-07-30 13:54] LABS: Alpha Fetoprotein 3.8 ng/mL (<6.1)
[2023-07-30 13:58] LABS: Hepatitis B Viral DNA Qn - cp NOT DETECTED Log IU/mL (NOT DETECTED); Hepatitis B Viral DNA Qn-IU/mL NOT DETECTED (NOT DETECTED)
[2023-07-30 15:52] LABS: Glucose, Whole Blood 196 mg/dL (60-115)
[2023-07-30 20:01] LABS: Glucose, Whole Blood 225 mg/dL (60-115)
[2023-07-30] MEDS: Prazosin HCL 1 MG CAPSULE 2 MG PO (20:23)
[2023-07-30] MEDS: Insulin Glargine,Hum.rec.anlog 100 UNIT/ML 10 ML VIAL 40 UNIT SUBCUT (20:24)
[2023-07-30] MEDS: Pravastatin Sodium 20 MG TABLET PO (20:24)
[2023-07-31] MEDS: Octreotide Acetate 500 MCG in 0.9 % Sodium Chloride 500 ML 25.05 MCG IVCONT
[2023-07-31 03:21] VITALS: BP 149/69; PULSE 75; RESP 16; TEMP 37.3; O2SAT 96
[2023-07-31 05:14] VITALS: TEMP 37.2
[2023-07-31 06:38] LABS: Hematocrit 24.5 % (42.0-52.0); Hemoglobin 8.4 g/dl (14.0-18.0); Mean Corpuscular HGB Conc 34.3 g/dl (31.0-36.0); Mean Corpuscular Hemoglobin 29.6 pg (27.0-33.0); Mean Corpuscular Volume 86.3 fL (80.0-98.0); Mean Platelet Volume 10.3 fL (9.4-12.4); Red Blood Count 2.84 X10*6/uL (4.60-5.80); Red Cell Distribution Width 14.2 % (11.0-16.0); White Blood Count 4.2 X10*3/uL (4.8-10.8)
[2023-07-31 06:40] LABS: Platelet Count 87 X10*3/uL (160-400)
[2023-07-31 07:10] VITALS: BP 139/68; PULSE 84; RESP 18; TEMP 36.6; O2SAT 100
[2023-07-31 07:30] LABS: Glucose, Whole Blood 183 mg/dL (60-115)
[2023-07-31] MEDS: Buprenorphine/Naloxone 8/2 mg FILM 1 FILM SUBLINGUAL (08:48)
[2023-07-31] MEDS: Furosemide 20 MG TABLET PO (08:48)
[2023-07-31] MEDS: Lidocaine 4 % Patch ADH..PATCH 1 PATCH TRANSDERMA (08:49)
[2023-07-31] MEDS: Omeprazole 40 MG CAPSULE.DR PO (08:49)
[2023-07-31] MEDS: carvediloL 3.125 MG TABLET PO (08:49)
[2023-07-31] MEDS: QUEtiapine Fumarate 50 MG TABLET PO (08:49)
[2023-07-31] MEDS: Cholecalciferol (Vitamin D3) 25 MCG TABLET 50 MCG PO (08:49)
[2023-07-31] MEDS: Sucralfate 1 GM TABLET PO (08:49)
[2023-07-31] MEDS: Spironolactone 25 MG TABLET 50 MG PO (08:49)
[2023-07-31] MEDS: Insulin Lispro 100 UNIT/ML 3 ML VIAL SUBCUT (08:51)
[2023-07-31 11:28] VITALS: BP 137/81; PULSE 86; RESP 18; TEMP 36.7; O2SAT 98
[2023-07-31 11:39] LABS: Glucose, Whole Blood 227 mg/dL (60-115)
--- NOTE | 2023-07-31 12:11 | MHC.CM.PN ---
Pt is medically cleared for D/C home self-care, pt states he has a friend who will transport him home.
[2023-08-01 13:28] LABS: HCV Log PCR <1.18 NOT DETECTED Log IU/mL (NOT DETECTED); HepC Viral Load <15 NOT DETECTED IU/mL (NOT DETECTED)
--- NOTE | 2023-09-11 17:30 | PM.DS ---
DS: Providers Provider Date of Service: 07/31/23 Date of admission: 07/28/23 12:06 Primary care physician: Kierra Flanagan MD DS: Diagnosis Discharge Diagnosis (1) ABLA (acute blood loss anemia): Status: Resolved (2) GI bleeding: Status: Resolved (3) Cirrhosis: Status: Acute (4) Portal hypertensive gastropathy: Status: Inactive (5) Esophageal varices with bleeding: Status: Resolved (6) HCV (hepatitis C virus): Status: Inactive DS: Summary Hospital Course Hospital Course: History of presenting illness: Date of Service: 07/28/23 Chief Complaint: GI Bleed 53 year old male with history of hep and cirrhosis of the liver, esopheal varices, prior episodes of gib, last EGD/colonoscopy in October 2022-esophageal varices and colon, and internal hemorrhoid polyps, diabetes. He presents today with melana and hematemesis. He states has has been having dark blood in stool for 2 days and this moring had bloody emesis. Hemoglobin is 8.6 on Jun 18 2023 it was 12,3. He is started on octreotide, IV ppi and 1 unit of RBC. He is hemodyncamically stable at this time, BP 124/59, P96 Hospital course 53/m with hep c cirrhosis of liver, esophageal varices here with GIB, and admitted to medical floor with a diagnosis of acute blood loss anemia and treated with IV octreotide,iv ppi and prophylactic IV ceftriaxone and received total 4 units of packed RBC hematocrit improved, underwent upper endoscopy by Dr. Domingo and noted to have esophageal varices ,2 bands were applied at 35 cm and 33 cm with complete decompression of esophageal varices, also noted to have portal hypertensive gastropathy, noted to have normal duodenum, diet was gradually advanced, patient noted to have no further episodes of bleeding therefore discharged home on Carafate q.i.d., Ceftin for total 7 days and Prilosec once daily patient is recommended close outpatient follow-up with valve seater operator for repeat upper endoscopy in 8 weeks. Patient was noted to have acute lactic acidosis due to cirrhosis and not due to sepsis. ? In regard to diabetes mellitus blood sugars stable recommend to continue diabetic diet, Lantus and monitor blood sugars closely. History of Cirrhosis with ascites recommend to continue outpatient meds, Coreg, lasix , and aldactone and close outpatient GI follow-up. Time Attestation Discharge Coordination Time (in mins): 35 Quality: Safe Use of Opioids Does Pt have an Active Cancer Diagnosis on the Problem List?: No Quality: Stroke Does the patient have a stroke diagnosis?: No Physical Exam Vital Signs: Vital Signs: Last Vital Signs Temp 98.0 F 07/31/23 11:28 Pulse 86 07/31/23 11:28 Resp 18 07/31/23 11:28 BP 137/81 07/31/23 11:28 Pulse Ox 98 07/31/23 11:28 O2 Del Method Room Air 07/31/23 11:28 BMI result Body Mass Index 34.5 Const: Other: Constitutional: Alert, oriented in no distress, overweight. Neck no JVD Respiratory: Clear to auscultation. No wheezing, rales or rhonchi. Cardiovascular: S1 S2 regular. No murmurs, rubs or gallops. Gastrointestinal: Abdomen soft, non-tender, non-distended. Normal bowel sounds.? Neurologic: Cranial nerves II-XII grossly intact. No focal neurological deficits. Skin: No rashes or lesions.? Psychiatric: Normal mood and affect? DS: Data Data Completed and Pending Completed studies during hospitalization [Text1]: Procedures Drainage of Peritoneal Cavity, Percutaneous Approach (10/08/22) Excision of Stomach, Pylorus, Via Natural or Artificial Opening Endoscopic, Diagnostic (10/08/22) Occlusion of Esophageal Vein with Extraluminal Device, Via Natural or Artificial Opening Endoscopic (07/28/23) Transfusion of Nonautologous Red Blood Cells into Peripheral Vein, Percutaneous Approach (07/28/23) Discharge Plan Discharge Anticipated Discharge Date/Time: 07/31/23 11:04 Patient Disposition: Home, Self-Care Discharge Diagnosis: Acute esophageal variceal bleed Diabetes with hyperglycemia Acute lactic acidosis Referrals: Kierra Ulloa MD [Primary Care Provider] - 1 Week Discharge Medications: New sucralfate 1 gram Tablet 1 g PO QIDACHS Qty: 120 0RF cefuroxime axetil 500 mg tablet 500 mg PO Q12H Qty: 8 0RF Continued buprenorphine-naloxone 8-2 mg film 8 mg sublingual TID prazosin 2 mg capsule 2 mg PO BEDTIME insulin glargine [Lantus U-100 Insulin] 100 unit/mL solution 40 unit subcut BEDTIME clonazepam 0.5 mg tablet 0.5 mg PO DAILY PRN (Reason: Anxiety) quetiapine 50 mg tablet 50 mg PO BID (DME) blood-glucose meter [OneTouch Ultra2 Meter] Kit See Rx Instructions .Route Qty: 1 0RF Rx Instructions: As directed (DME) lancets [OneTouch UltraSoft Lancets] Misc See Rx Instructions .Route Qty: 100 6RF Rx Instructions: Use 1 lancet twice a day carvedilol 3.125 mg tablet 3.125 mg PO BID 90 Days Qty: 180 1RF Protocol: Hold for SBP/HR < HOLD for SBP < : 90 HOLD for HR < : 60 (DME) OneTouch Ultra Test Strip See Rx Instructions .Route Qty: 100 6RF Rx Instructions: Use 1 lancet twice a day cholecalciferol (vitamin D3) 50 mcg (2,000 unit) capsule 50 mcg PO DAILY 90 Days Qty: 90 1RF furosemide 20 mg tablet 20 mg PO DAILY 90 Days Qty: 90 1RF Protocol: Hold for SBP< HOLD for SBP < : 90 hydrocortisone [Anti-Itch (HC)] 1 % cream 1 appl topical TID PRN (Reason: skin irritation) 14 Days Qty: 28.4 1RF (DME) insulin syringe-needle U-100 [BD Insulin Syringe Ultra-Fine] 0.5 mL 31 gauge x 5/16 syringe See Rx Instructions .ROUTE .MEDSUPPLY Qty: 100 4RF Rx Instructions: Use 1 syringe needle once a day lidocaine 5 % adhesive patch,medicated 1 patch topical DAILY 30 Days Qty: 30 4RF Rx Instructions: leave on most painful area for up to 12 hrs pantoprazole 40 mg tablet,delayed release (DR/EC) 40 mg PO BID 90 Days Qty: 180 3RF (DME) pen needle, diabetic 31 gauge x 3/16 needle See Rx Instructions subcut DAILY Qty: 100 6RF Rx Instructions: Use 1 needle once a day pravastatin 20 mg tablet 20 mg PO BEDTIME 90 Days Qty: 90 1RF spironolactone 25 mg tablet 50 mg PO DAILY 90 Days Qty: 180 1RF Protocol: Hold for SBP< HOLD for SBP < : 90 (DME) nonslip shower mat See Rx Instructions .Route .MEDSUPPLY Qty: 1 0RF Rx Instructions: As directed (DME) Shower Chair Misc See Rx Instructions .Route Qty: 1 0RF Rx Instructions: As directed (DME) handheld shower See Rx Instructions .Route .MEDSUPPLY Qty: 1 0RF Rx Instructions: As directed Discontinued ibuprofen 800 mg tablet 800 mg PO Q8H PRN (Reason: Pain) No Action sucralfate [Carafate] 100 mg/mL suspension 10 ml PO BID Qty: 1000 0RF quetiapine 100 mg tablet PO hydrocortisone 1 % cream with perineal applicator topical Discharge Orders: Discharge Order (Routine); Ordered 07/31/23 Ordered By: Keren Hawthorne Diet: Diabetic diet Activity on Discharge: As tolerated Stand Alone Forms: Patient Portal Discharge page Care Plan Goals: Acute esophageal variceal bleeding resolved status post banding of esophageal varices Repeat EGD in 8 weeks Continue all home medications as above Take Ceftin 1 tablet twice daily for 4 more days Take Carafate 1 tablet 4 times a day for 1 month and then as per stomach specialist Return to check with recurrent upper GI bleed Avoid NSAIDs, no Advil, no Motrin ,or ibuprofen. Health Concerns: Strongly recommend to abstain from smoking Continue all home medications from before Follow diabetic diet and monitor blood sugars Plan of Treatment: Follow-up with primary care physician and outpatient follow-up with valve seater operator Dr. Harish holloway for repeat upper endoscopy in 8 weeks Assessment: As above Discharge Date/Time: 07/31/23 13:01
== END 2023-07-31 13:01 | disposition home or self-care (01) | DRG 432 ==
LOC: HO.ED 11:50 → HO.EDOVER 12:22 → HO.IMC 13:21
PROVIDERS: Internal Medicine; Student in an Organized Health Care Education/Training Program; Admitting Provider Internal Medicine; Emergency Provider Student in an Organized Health Care Education/Training Program; PCP Internal Medicine; Visit Provider Hospitalist
PROC: 0DJ08ZZ Inspection of Upper Intestinal Tract, Via Natural or Artificial Opening Endoscopic (ICD-10-PCS; CPT 43235; principal; 2023-07-28 12:45)
DX: K74.69 Other cirrhosis of liver (principal); I85.11 Secondary esophageal varices with bleeding; D62 Acute posthemorrhagic anemia; F11.20 Opioid dependence, uncomplicated; K76.6 Portal hypertension; R18.8 Other ascites; E11.65 Type 2 diabetes mellitus with hyperglycemia; K31.89 Other diseases of stomach and duodenum; F17.210 Nicotine dependence, cigarettes, uncomplicated; Z71.6 Tobacco abuse counseling; Z86.19 Personal history of other infectious and parasitic diseases; Z79.4 Long term (current) use of insulin; Z79.899 Other long term (current) drug therapy
CPT/HCPCS: 36415; 76700; 80048; 80053; 82010; 82105; 82272; 82947; 83605; 83690; 83735; 84484; 85014; 85018; 85025; 85027; 85610; 86850; 86900; 86901; 86920; 86923; 87040; 87517; 87522; 93005; 99285; C9113; J0696; J2354; J2704; P9016

== ENCOUNTER → 2023-07-28 09:52 | Outpatient (BNV) | payer OTHER, SELFPAY | PROVIDERS: Emergency Provider Student in an Organized Health Care Education/Training Program; PCP Internal Medicine; Visit Provider Internal Medicine | DX: K74.60 Unspecified cirrhosis of liver (principal); R18.8 Other ascites; K76.6 Portal hypertension; K31.89 Other diseases of stomach and duodenum; K92.2 Gastrointestinal hemorrhage, unspecified; K25.9 Gastric ulcer, unspecified as acute or chronic, without hemorrhage or perforation; B19.20 Unspecified viral hepatitis C without hepatic coma; I85.01 Esophageal varices with bleeding | CPT/HCPCS: 43244; 99223; 99232 ==

== ENCOUNTER → 2023-07-28 09:54 | Outpatient (BNV) | payer OTHER, SELFPAY | PROVIDERS: Admitting Provider Internal Medicine; Emergency Provider Student in an Organized Health Care Education/Training Program; PCP Internal Medicine; Visit Provider Internal Medicine | DX: R00.0 Tachycardia, unspecified (principal) | CPT/HCPCS: 93010 ==

== ENCOUNTER → 2023-07-28 12:06 | Outpatient (BNV) | payer OTHER, SELFPAY | PROVIDERS: Admitting Provider Internal Medicine; Emergency Provider Student in an Organized Health Care Education/Training Program; PCP Internal Medicine; Visit Provider Internal Medicine | DX: K92.2 Gastrointestinal hemorrhage, unspecified (principal); I85.01 Esophageal varices with bleeding; D62 Acute posthemorrhagic anemia | CPT/HCPCS: 99223; 99232; 99239; 99499 ==

== ENCOUNTER 2023-09-06 09:22 | Outpatient (AMB) | payer OTHER, SELFPAY ==
--- NOTE | 2023-09-06 09:25 | A.OFFVIS_ITS ---
Intake Vital Signs 09/06/23 09:31 Height 5 ft 6 in Weight 218 lb 4.122 oz BMI 35.2 BP 139/72 Blood Pressure Location Lt brachial Position Sitting Pulse 95 Intake Visit Reasons: 4 month follow up Intake Note: Vasile presents in the office as a 4 month follow up. CC: HE states that he had the surgery and they had to do a blood transfusion so he wants to know what happened at that time. Cut Tobacco Bulker Required: Yes Cut Tobacco Bulker Name: [id number] [place] Allergies lisinopril Adverse Reaction (Intermediate, Verified 09/06/23 09:32) Headache HPI 4 month follow up HPI Details 53-year-old male, with hx of untreated HCV, bipolar d/o, chronic knee pain, DM, HTN< and HLP who I am seeing for f/u for ascites and anemia due to cirrhosis RECAP: I had seen pt 09/2022 for melena, abdominal distention and abdominal pain denied history of alcohol abuse He had been taking ibuprofen q6 h for few years due to chronic knee pain, and is unsure if taking any PPI Patient had a diagnostic paracentesis which was negative for SBP, Admitted 08/17 with GI bleed and had EGD with banding Imaging: Abdomen pelvic CT shows cirrhosis with diffuse ascites, prominent collateral vessels, US 07/17-- neg for ascites, not needed paracentesis SCOPES: EGD -01/2019--erosive gastritis, duodenitis and esophagitis. EGD- 09/2022--varices--banded, gastric ulcer EGD, colo --healed ulcer, varices grade II-not re banded, EGD 08/17 -- large varices, banded INTERIM: no further evidence of melena or rectal bleeding not taking drugs or alcohol, no nsaids no worsening distention, denies alcohol use, no smoking no abdominal pain EXAM: GENERAL: The patient is well developed and nontoxic. VITAL SIGNS:see workflow HEENT: Nonicteric sclerae, PERRLA, EOMI. Oropharynx clear. Moist mucous membranes. Conjunctivae appear well perfused. No thyroid mass. CHEST: Chest wall is nontender. HEART: Regular rate and rhythm without murmurs. LUNGS: Clear to auscultation bilaterally. ABDOMEN: Soft, positive bowel sounds, nontender, no organomegaly.no flank tenderness--no shifting dullness SKIN: No rash, no excessive bruising, petechiae, or purpura. NEUROLOGIC: Cranial nerves II-XII intact without motor/sensory deficit. psych--nml A/P; 1/ Cirrhosis, with ascites and variceal bleeding decompensated due to NSAID use now seems to be heading toward compensation with avoidance of nsaid and less amounts of fluid needing drained --MELD na--9 2/ Gastric ulcer--resolved--h pylori was negative in the past 3/ Variceal bleeding, s/p banding 4/ Ascites--resolved, but strangely stil l has varices PLAN: 1/ Ascites--resolved, avodi nsaid, lo sa lt diet, cont with aldactone 2/ HE--no evidence of overt disease 3/ Varices- bleeding, rept EGD 4/ HCC screen---CT ordered to r/o HCC 5/ recheck labs 6/ colo screening later this year 7/ if ongoing variceal bleeding then TIP S [facility], [facility] Medical History (Updated 09/06/23 @ 10:26 by Milton Hyatt MD) Cirrhosis Portal hypertensive gastropathy GERD (gastroesophageal reflux disease) Normocytic anemia History of substance abuse Bipolar disorder Moderate recurrent major depression HCV (hepatitis C virus) Acid reflux Right knee pain Transaminitis Left knee pain Pure hypercholesterolemia Essential hypertension Diabetes mellitus Surgical History History of abdominal paracentesis Hx of esophagogastroduodenoscopy Family History Father CVD (cardiovascular disease) Diabetes Thyroid disease Maternal Grandmother Diabetes Brother Respiratory failure Asthma Sister No problems noted. Daughter No problems noted. Family/Other Mental health disorder Mother Mental health disorder Essential hypertension Social History Household Members: Family Housing: Apartment Do you presently have visiting nurse or other home services: No Alcohol intake: never Patient Tobacco Use Status: Current everyday Tobacco user Tobacco use type: Cigarette Cigarettes Per Day: 3 Years Smoked: 30 e-Cigarette/Vaping Use: Currently Using Second Hand Smoke Exposure: No service: No Current occupational status: unemployed Current occupation: Right Handed Cognitive needs: Yes Hearing needs: No Vision needs: No Physical Exam Vital Signs: Last Vital Signs Pulse 95 09/06/23 09:31 BP 139/72 09/06/23 09:31 BMI result Body Mass Index 35.2 Assessment & Plan Assessment & Plan (1) Cirrhosis: Code(s): K74.60 - Unspecified cirrhosis of liver Qualifiers: Ascites presence: with ascites Hepatic cirrhosis type: unspecified hepatic cirrhosis Qualified Code(s): K74.60 - Unspecified cirrhosis of liver; R18.8 - Other ascites Plan: see above Orders: Orders Comprehensive Met. Panel Today K74.60 - Unspecified cirrhosis of liver, K75.81 - Nonalcoholic steatohepatitis (KEYS) Ferritin Today K74.60 - Unspecified cirrhosis of liver CT abdomen wo/w IV con Today K74.60 - Unspecified cirrhosis of liver Prothrombin Time INR Today K74.60 - Unspecified cirrhosis of liver Complete Blood Count Auto Diff Today K74.60 - Unspecified cirrhosis of liver Coding Level of Care Code Est Pt Level 4 (56027) Diagnoses Cirrhosis of liver with ascites, unspecified hepatic cirrhosis type K74.60; R18.8 Ascites presence: with ascites Hepatic cirrhosis type: unspecified hepatic cirrhosis
[2023-09-06 09:31] VITALS: BP 139/72; PULSE 95; BMI 35.2
== END 2023-09-06 10:30 | disposition home or self-care (01) ==
PROVIDERS: PCP Internal Medicine; Visit Provider Internal Medicine Gastroenterology
DX: K74.60 Unspecified cirrhosis of liver (principal); R18.8 Other ascites
CPT/HCPCS: 99214

== ENCOUNTER → 2023-09-06 09:22 | Outpatient (BNVA) | payer OTHER, SELFPAY | PROVIDERS: PCP Internal Medicine; Visit Provider Internal Medicine Gastroenterology | DX: K74.60 Unspecified cirrhosis of liver (principal); K75.81 Nonalcoholic steatohepatitis (NASH); R18.8 Other ascites | CPT/HCPCS: 99212 ==

== ENCOUNTER 2023-09-10 06:29 | Day surgery (SDC) | payer OTHER, SELFPAY ==
--- NOTE | 2023-09-09 12:21 | HO.ANESPROP2 ---
Documented by User: Aniyah Bell NP 09/09/23 12:25 HPI - Anesthesia Eval Consult details Narrative: 53yo M for Upper Endoscopy s/p EGD, varices banding 07/2023 with MAC Cirrhosis Suboxone daily PMFSH Active Problems Active Problems: All Active Problems (Updated 09/06/23 @ 10:26 by Milton Hyatt MD) Cirrhosis (Acute) Pre-op evaluation (Acute) Patellofemoral pain syndrome of both knees (Acute) Arthritis of both knees (Acute) Hypovitaminosis D (Acute) Anemia (Acute) Physical exam (Acute) Acute lower gastrointestinal bleeding (Acute) Abdominal ascites (Acute) NSAID long-term use (Acute) Gastric ulcer (Acute) Hospital discharge follow-up (Acute) History of substance abuse (Acute) Bipolar disorder (Acute) Moderate recurrent major depression (Acute) Acid reflux (Acute) Right knee pain (Acute) Transaminitis (Acute) Left knee pain (Acute) Diabetes mellitus (Acute) Pure hypercholesterolemia (Acute) Essential hypertension (Acute) Past Medical History Medical History Cirrhosis Portal hypertensive gastropathy GERD (gastroesophageal reflux disease) Normocytic anemia History of substance abuse Bipolar disorder Moderate recurrent major depression HCV (hepatitis C virus) Acid reflux Right knee pain Transaminitis Left knee pain Pure hypercholesterolemia Essential hypertension Diabetes mellitus Family History Family History Father CVD (cardiovascular disease) Diabetes Thyroid disease Maternal Grandmother Diabetes Brother Respiratory failure Asthma Sister No problems noted. Daughter No problems noted. Family/Other Mental health disorder Mother Mental health disorder Essential hypertension Family history of problems with anesthesia: No Surgical History Surgical History History of abdominal paracentesis Hx of esophagogastroduodenoscopy History of Problems with Anesthesia: No Social History Social History Household Members: Family Housing: Apartment Do you presently have visiting nurse or other home services: No Alcohol intake: never Patient Tobacco Use Status: Current everyday Tobacco user Tobacco use type: Cigarette Cigarettes Per Day: 3 Years Smoked: 30 Smoked in Last 30 Days: Yes e-Cigarette/Vaping Use: Currently Using Patient Interested in Nicotine Replacement: No Second Hand Smoke Exposure: No Are you DNR?: No Advance Directives: No Advance Directives Information Provided: Yes Nutrition Risks: No Nutritional Risk service: No Current occupational status: unemployed Current occupation: Right Handed Cognitive needs: Yes Hearing needs: No Vision needs: No Meds Allergies Allergy/AdvReac Type Severity Reaction Status Date / Time lisinopril AdvReac Intermediate Headache Verified 09/10/23 06:54 Home Medications Medication Instructions Recorded Confirmed Last Taken Type clonazepam 0.5 mg tablet 0.5 mg PO DAILY PRN Anxiety 08/15/21 09/10/23 Unknown History quetiapine 50 mg tablet 50 mg PO BID 08/15/21 09/10/23 Unknown History buprenorphine 8 mg-naloxone 2 mg 8 mg sublingual TID 10/09/22 09/10/23 09/10/23 History sublingual film prazosin 2 mg capsule 2 mg PO BEDTIME 10/09/22 09/10/23 Unknown History insulin glargine 100 unit/mL 40 unit subcut BEDTIME 07/19/23 09/10/23 Unknown History subcutaneous solution (Lantus U-100 Insulin) hydrocortisone 1 % topical cream topical 09/06/23 Unknown History with perineal applicator quetiapine 100 mg tablet mg PO 09/06/23 Unknown History Exam Pertinent Lab Results Pertinent Lab Results: Laboratory Tests 10/11/22 07/30/23 07/31/23 05:40 06:44 05:49 WBC 4.2 L Hgb 8.4 L Hct 24.5 L Plt Count 87 L Sodium 137 140 Potassium 4.3 3.3 Chloride 111 H 111 H Carbon Dioxide 21 L 24 BUN 14 16 Creatinine 0.94 0.86 Narrative Narrative: US abdomen complete 07/2023 IMPRESSION: Hepatic cirrhosis. Splenomegaly. Assessment and Plan Assessment Anesthesia Assessment: Chart Reviewed Final Anesthetic Review Family History of Problems with Anesthesia: No History of Problems with Anesthesia: No Documented by User: Juliocesar Covarrubias MD 09/10/23 07:38 PMFSH Past Medical History Medical History Cirrhosis Portal hypertensive gastropathy GERD (gastroesophageal reflux disease) Normocytic anemia History of substance abuse Bipolar disorder Moderate recurrent major depression HCV (hepatitis C virus) Acid reflux Right knee pain Transaminitis Left knee pain Pure hypercholesterolemia Essential hypertension Diabetes mellitus Family History Family History Father CVD (cardiovascular disease) Diabetes Thyroid disease Maternal Grandmother Diabetes Brother Respiratory failure Asthma Sister No problems noted. Daughter No problems noted. Family/Other Mental health disorder Mother Mental health disorder Essential hypertension Surgical History Surgical History History of abdominal paracentesis Hx of esophagogastroduodenoscopy Social History Social History Household Members: Family Housing: Apartment Do you presently have visiting nurse or other home services: No Alcohol intake: never Patient Tobacco Use Status: Current everyday Tobacco user Tobacco use type: Cigarette Cigarettes Per Day: 3 Years Smoked: 30 Smoked in Last 30 Days: Yes e-Cigarette/Vaping Use: Currently Using Patient Interested in Nicotine Replacement: No Second Hand Smoke Exposure: No Are you DNR?: No Advance Directives: No Advance Directives Information Provided: Yes Nutrition Risks: No Nutritional Risk service: No Current occupational status: unemployed Current occupation: Right Handed Cognitive needs: Yes Hearing needs: No Vision needs: No Meds Allergies Allergy/AdvReac Type Severity Reaction Status Date / Time lisinopril AdvReac Intermediate Headache Verified 09/10/23 06:54 Home Medications Medication Instructions Recorded Confirmed Last Taken Type clonazepam 0.5 mg tablet 0.5 mg PO DAILY PRN Anxiety 08/15/21 09/10/23 Unknown History quetiapine 50 mg tablet 50 mg PO BID 08/15/21 09/10/23 Unknown History buprenorphine 8 mg-naloxone 2 mg 8 mg sublingual TID 10/09/22 09/10/23 09/10/23 History sublingual film prazosin 2 mg capsule 2 mg PO BEDTIME 10/09/22 09/10/23 Unknown History insulin glargine 100 unit/mL 40 unit subcut BEDTIME 07/19/23 09/10/23 Unknown History subcutaneous solution (Lantus U-100 Insulin) hydrocortisone 1 % topical cream topical 09/06/23 Unknown History with perineal applicator quetiapine 100 mg tablet mg PO 09/06/23 Unknown History Exam Airway Mallampati Class: III TM Dist: >3cm Neck ROM: Full Loose/Missing/Broken Teeth: Yes, Upper and Lower Assessment and Plan Assessment Anesthesia Assessment: Anesthesia Plan Discussed Final Anesthetic Review NPO: Yes ASA Class: III Final Preanesthetic Review: No Changes in Pt Med Stat, Meds/Allgs Chart Reviewed, Consent Obtained/Reviewed and Anes Risks/Benef Reviewed Patient Risk: Intermediate Procedure Risk: Low Anesthetic Plan Anesthetic Plan: GA Disposition: Standard PACU
--- NOTE | 2023-09-10 06:52 | MHC.SHP ---
Pre-Procedural Eval Section A - 24 Hr Update-Section A only Date of Service: 09/10/23 The patient is an INPATIENT: No The patient has been examined within 24 hours of the surgical procedure. The History & Physical has been completed within 30 days and I have reviewed it.: Yes Section B - Complete if H&P > 30 days Chief Complaint: Varicose veins of unspecified lower extremity with Allergies: Allergies Allergy/AdvReac Type Severity Reaction Status Date / Time lisinopril AdvReac Intermediate Headache Verified 09/06/23 09:32 Plan Diagnosis/Plan: Unchanged I have reviewed the history and physical and performed a pertinent physical examination on my patient. No changes have occurred unless specified. Time Spent With Patient Time: Total time managing care of this patient today ____ minutes.
[2023-09-10 06:55] VITALS: BP 134/76; PULSE 87; RESP 18; TEMP 36.7; O2SAT 96
[2023-09-10 07:05] LABS: Glucose, Whole Blood 168 mg/dL (60-115)
[2023-09-10 07:06] LABS: Hematocrit 28.9 % (42.0-52.0); Hemoglobin 9.3 g/dl (14.0-18.0); Mean Corpuscular HGB Conc 32.2 g/dl (31.0-36.0); Mean Corpuscular Hemoglobin 24.9 pg (27.0-33.0); Mean Corpuscular Volume 77.3 fL (80.0-98.0); Mean Platelet Volume 9.6 fL (9.4-12.4); Platelet Count 94 X10*3/uL (160-400); Red Blood Count 3.74 X10*6/uL (4.60-5.80); Red Cell Distribution Width 15.3 % (11.0-16.0); White Blood Count 3.2 X10*3/uL (4.8-10.8)
[2023-09-10] MEDS: Lactated Ringers 1,000 ML 100 ML IVCONT (07:07)
--- NOTE | 2023-09-10 07:08 | PC.NURSE ---
IV inserted by kaveh david rn.
[2023-09-10 07:09] VITALS: BMI 36.0
[2023-09-10 07:11] LABS: INTERNATIONAL NORM RATIO 1.1 (0.9-1.1); Prothrombin Time 12.8 SEC (11.1-13.3)
--- NOTE | 2023-09-10 07:42 | W.PM.OPN ---
Operative Note Operative Note Date of Service: 09/10/23 Narrative: Procedure Description: EGD Indication: variceal screening Anesthesia: MAC FLEXIBLE TRANSORAL UPPER GASTROINTESTINAL ENDOSCOPY UPPER ENDOSCOPY Consent: Indications for the procedure and potential complications of bleeding, perforation, reaction to medications and missed diagnosis were discussed with the patient and informed consent was obtained. Instrument: Olympus GIF H 190 J mid size upper endoscope Monitoring: Vital signs and clinical assessment, continuous EKG monitoring, Pulse oximetry, Carbon Dioxide monitoring and blood pressure monitoring were done throughout the procedure. Procedure: The patient was placed in the left lateral decubitis position and pre-procedure medications were administered and a bite block was placed. The endoscope was inserted into the mouth and advanced under direct vision to the third part of duodenum. A careful inspection was made as the upper endoscope was withdrawn including a retroflexed examination of the proximal stomach; Findings and interventions are described below. Findings: Larynx:normal Esophagus: GE junction at 40 cm, diaphragm hiatus at 40 cm, mild esophagitis, x2 variceal cords grade II with some red aviles, x 3 bands applied with good collapse Stomach: mosaic pattern with patchy erythema consistent with portal hypertensive gastropathy . Grade 2 flap valve on retroflexed examination of the cardia. no gastric varices seen but in pre antrum area, anterior wall of stomach there was a superficial ulcer calos grade III 10 mm. Duodenum: Normal bulb and descending duodenum, but some mucosal congestion noted Intervention: Variceal banding Impression/Findings: portal hypertensive gastropathy congestive duodenopathy esophagitis esophgeal varices PLAN: ensure compliance with PPI add carafate for 2 weeks repeat EGD in about 3-4 weeks GERD precautions
[2023-09-10 08:03] VITALS: BP 118/65; PULSE 73; RESP 20; TEMP 36.2; O2SAT 99
[2023-09-10] MEDS: Mag&Al/Sim/Diphenhyd/Lidocaine 10 ML ORAL.SUSP PO (08:13)
[2023-09-10 08:18] VITALS: BP 124/71; PULSE 75; RESP 20; O2SAT 96
--- NOTE | 2023-09-10 08:29 | PC.NURSE ---
dr. truong and dr. antunez reviewed lab results that were drawn preop before patient going into room. ok to proceed per them.
[2023-09-10 08:30] VITALS: BP 126/66; PULSE 74; RESP 16; TEMP 36.2; O2SAT 97
--- NOTE | 2023-09-10 08:51 | HO.INF ---
PATIENT ARRIVED IN DC AREA WANTING TO LEAVE. PATIENT WAS GETTING UP OUT OF HIS CHAIR. PATIENT DID STAY FOR QUICK DISCHARGE INSTRUCTIONS AND DID SIGN AGAINST MEDICAL TREATMENT FORM. PATIENT DID NOT WANT TO WAIT FOR HIS RIDE UPSTAIRS, BUT ALLOWED THIS NURSE TO WHEEL HIM DOWN IN THE WC TO THE FRONT DOOR WHERE HE CHOSE TO WAIT FOR HIS RIDE.
== END 2023-09-10 08:53 | disposition home or self-care (01) ==
PROVIDERS: Nurse Practitioner; PCP Internal Medicine; Visit Provider Internal Medicine Gastroenterology
PROC: 0DJ08ZZ Inspection of Upper Intestinal Tract, Via Natural or Artificial Opening Endoscopic (ICD-10-PCS; CPT 43235; principal; 2023-09-10 07:30)
DX: I85.00 Esophageal varices without bleeding (principal); K76.6 Portal hypertension; K31.89 Other diseases of stomach and duodenum; K20.90 Esophagitis, unspecified without bleeding; E11.9 Type 2 diabetes mellitus without complications; I10 Essential (primary) hypertension; E78.00 Pure hypercholesterolemia, unspecified; D64.9 Anemia, unspecified; K74.60 Unspecified cirrhosis of liver; F33.1 Major depressive disorder, recurrent, moderate; F11.20 Opioid dependence, uncomplicated; Z79.4 Long term (current) use of insulin; Z79.899 Other long term (current) drug therapy; Z53.29 Procedure and treatment not carried out because of patient's decision for other reasons
CPT/HCPCS: 43244; 36415; 82947; 85027; 85610; J2704

== ENCOUNTER → 2023-09-10 06:29 | Outpatient (BNV) | payer OTHER, SELFPAY | PROVIDERS: PCP Internal Medicine; Visit Provider Internal Medicine Gastroenterology | DX: I85.00 Esophageal varices without bleeding (principal); K20.90 Esophagitis, unspecified without bleeding; K31.89 Other diseases of stomach and duodenum | CPT/HCPCS: 43244 ==

== ENCOUNTER 2023-09-25 07:53 | Outpatient (AMB) | payer OTHER, SELFPAY ==
[2023-09-25 08:01] VITALS: BP 152/80; BMI 34.9
--- NOTE | 2023-09-25 08:01 | MHC.PC.OV ---
Vital Signs 09/25/23 08:01 09/25/23 08:47 Height 5 ft 6 in Weight 216 lb BMI 34.9 BP 152/80 H 150/80 H Blood Pressure Location Lt brachial Lt brachial Position Sitting Sitting Intake Visit Reasons: dm Intake Note: Patient here for a follow up DM Matchbook Assembler Required: No Accompanied by: Self / Same As Patient Allergies lisinopril Adverse Reaction (Intermediate, Verified 09/25/23 08:18) Headache Medication List - Last Reconciled 09/25/23 by Kierra Flanagan MD blood sugar diagnostic (OneWed (Formerly Nearlyweds)uch Ultra Test strips) Use 1 lancet twice a day blood-glucose meter (GreenButton Ultra2 Meter kit) As directed buprenorphine-naloxone 8-2 mg 8 mg sublingual TID carvedilol 3.125 mg See Protocol PO BID 90 days cholecalciferol (vitamin D3) 50 mcg PO DAILY 90 days clonazepam 0.5 mg PO DAILY PRN furosemide 20 mg See Protocol PO DAILY 90 days [handheld shower As directed] hydrocortisone 1% (Anti-Itch (hydrocortisone)) 1 appl topical TID PRN 2 weeks hydrocortisone 1% topical insulin glargine (Lantus U-100 Insulin) 40 units subcut BEDTIME insulin syringe-needle U-100 (BD Insulin Syringe Ultra-Fine) Use 1 syringe needle once a day lancets (VizeraLabsTouch UltraSoft Lancets) Use 1 lancet twice a day lidocaine 5% 1 patch topical DAILY 30 days [nonslip shower mat As directed] pantoprazole 40 mg PO BID 90 days pen needle, diabetic Use 1 needle once a day pravastatin 20 mg PO BEDTIME 90 days prazosin 2 mg PO BEDTIME quetiapine 50 mg PO BID quetiapine mg PO Shower Chair As directed spironolactone 50 mg See Protocol PO DAILY 90 days sucralfate 1 g PO QIDACHS sucralfate (Carafate) 10 mL PO BID Tobacco use date assessed: 07/01/23 Dental Screening Dental Screen Date: 07/01/23 HPI HPI Comments History of Present Illness Details This is a 53-year-old male with diabetes mellitus type 2 on long-term current use of insulin, bipolar disorder, portal hypertensive gastropathy, cirrhosis, moderate recurrent major depression, opioid dependence on agonist therapy and pure hypercholesterolemia that comes today for follow-up on his conditions. A1c not on goal and I will increase Lantus from 40 units once a day to 50 units once a day. I will add short-acting insulin 3 times a day. Has bipolar disorder and moderate recurrent major depression that has been stable with medications and this is follow by Psychiatry. On Suboxone for his opioid dependence which has been stable. His cirrhosis is follow by Gastroenterology which does therapeutic paracentesis frequently. Has elevated blood pressure today and I will add amlodipine. Use spironolactone for his portal hypertensive gastropathy. On statins for his pure hypercholesterolemia and his LDL goal should be less than 70. Fasting labs were order and he is aware. Denies any chest pain or shortness of breath. No active bleeding since July 2023. [facility] Medical History (Updated 09/25/23 @ 08:52 by Kierra Flanagan MD) Portal hypertensive gastropathy Cirrhosis GERD (gastroesophageal reflux disease) Normocytic anemia History of substance abuse Bipolar disorder Moderate recurrent major depression HCV (hepatitis C virus) Acid reflux Right knee pain Transaminitis Left knee pain Pure hypercholesterolemia Essential hypertension Diabetes mellitus Surgical History History of abdominal paracentesis Hx of esophagogastroduodenoscopy Family History Father CVD (cardiovascular disease) Diabetes Thyroid disease Maternal Grandmother Diabetes Brother Respiratory failure Asthma Sister No problems noted. Daughter No problems noted. Family/Other Mental health disorder Mother Mental health disorder Essential hypertension Social History Household Members: Family Housing: Apartment Do you presently have visiting nurse or other home services: No Alcohol intake: never Patient Tobacco Use Status: Current everyday Tobacco user Tobacco use type: Cigarette Cigarettes Per Day: 3 Years Smoked: 30 e-Cigarette/Vaping Use: Currently Using Second Hand Smoke Exposure: No service: No Current occupational status: unemployed Current occupation: Right Handed Cognitive needs: Yes Hearing needs: No Vision needs: No Questionnaire Thrive Questionnaire Date Thrive assessed: 07/29/23 JOSEPH-7 AMB Questionnaire JOSEPH-7 Date JOSEPH - 7 assessed: 07/01/23 Source: Developed by Drs. Yaron Pinto, Carmen Black, Cameron Mc and colleagues, with an educational elizabeth from [employer]. Review of Systems Const All systems reviewed & are unremarkable except as noted in HPI and below Eyes Reports no additional complaints, Denies change in vision and Denies other visual disturbances Card Denies chest pain at rest, Denies chest pain with activity, Denies edema, Denies irregular heart rhythm, Denies claudication, Denies dyspnea, Denies dyspnea on exertion, Denies orthopnea, Denies paroxysmal nocturnal dyspnea and Denies slow heart rate Resp Denies cough, Denies dyspnea and Denies dyspnea on exertion GI Denies abdominal pain, Denies change in bowel habits, Denies excessive flatus, Denies nausea and Denies vomiting Denies urinary hesitancy, Denies urinary incontinence and Denies urinary urgency Physical exam (Primary Care) Vital Signs: Last Vital Signs BP 152/80 H 09/25/23 08:01 BMI result Body Mass Index 34.9 Tobacco/Smoking Status: Tobacco use Status Tobacco use date assessed 07/01/23 09/25/23 08:06 Patient Tobacco Use Status Current everyday Tobacco 09/25/23 08:06 Tobacco use type Cigarette 09/25/23 08:06 e-Cigarette/Vaping Use Currently Using 09/25/23 08:06 Thrive Assessment: Date of Thrive Assessment Date Thrive assessed 07/29/23 09/25/23 08:06 Resp Effort & Inspection: normal respiratory effort Auscultation: clear to auscultation bilaterally Cardio Jugular venous distension: no JVD Rate: regular rate Rhythm: regular rhythm Heart sounds: S1 normal heart sound present and S2 normal heart sound present Extrem General: Yes full ROM Results AMB Hemoglobin A1c AMB Hemoglobin A1c 9.4 % Last Edit by ENIO Montanez on 09/25/23 08:18 Results Reviewed Results Reviewed: Laboratory Last Values Hgb A1c (Clinic) 9.4 % (4.0-6.0) H 09/25/23 08:11 Assessment and Plan Assessment & Plan (1) Cirrhosis: Code(s): K74.60 - Unspecified cirrhosis of liver Qualifiers: Hepatic cirrhosis type: unspecified hepatic cirrhosis Ascites presence: with ascites Qualified Code(s): K74.60 - Unspecified cirrhosis of liver; R18.8 - Other ascites Plan: Follow-up with Gastroenterology. CT of abdomen pending for next month. Continue therapeutic paracentesis as needed. (2) Bipolar disorder: Code(s): F31.9 - Bipolar disorder, unspecified Qualifiers: Active/Remission status: in remission of unspecified degree Qualified Code(s): F31.70 - Bipolar disorder, currently in remission, most recent episode unspecified Plan: Continue Seroquel. Follow-up with psychiatry. (3) Moderate recurrent major depression: Comment: brianda avila [place] Code(s): F33.1 - Major depressive disorder, recurrent, moderate Plan: Continue Seroquel. Follow-up with psychiatry. (4) Diabetes mellitus: Code(s): E11.9 - Type 2 diabetes mellitus without complications Qualifiers: Diabetes mellitus type: type 2 Diabetes mellitus medical terminologist insulin use: unspecified halfway insulin use status Diabetes mellitus complication status: without complication Qualified Code(s): E11.9 - Type 2 diabetes mellitus without complications Plan: Increase Lantus to 50 units once a day. Start short-acting insulin. A1c goal is equal or less than 7%. (5) Pure hypercholesterolemia: Code(s): E78.00 - Pure hypercholesterolemia, unspecified Plan: Continue statins. Repeat lipid panel. LDL goal is less than 70. (6) Portal hypertensive gastropathy: Code(s): K76.6 - Portal hypertension; K31.89 - Other diseases of stomach and duodenum Plan: Continue spironolactone and furosemide. Start amlodipine to lower blood pressure. Blood pressure will be recheck in 3 weeks by nurse navigator. (7) Opioid dependence on agonist therapy: Code(s): F11.20 - Opioid dependence, uncomplicated Plan: Continue Suboxone. Orders: Orders Microalbumin, Random (w Creat) Today E11.9 - Type 2 diabetes mellitus without complications AMB Hemoglobin A1c Today E11.9 - Type 2 diabetes mellitus without complications Lipid Panel Today E78.5 - Hyperlipidemia, unspecified Comprehensive [place]. Panel Fast Today E11.9 - Type 2 diabetes mellitus without complications Medications: New amlodipine 5 mg PO DAILY 90 days 90 tabs 0RF insulin lispro (Humalog U-100 Insulin) 10 units (0.1 mL) subcut TID 90 days 27 mL 3RF E11.9 - Type 2 diabetes mellitus without complications Changed From insulin glargine (Lantus U-100 Insulin) 50 units subcut BEDTIME To insulin glargine (Lantus U-100 Insulin) 50 units (0.5 mL) subcut BEDTIME 90 days 45 mL 2RF From insulin syringe-needle U-100 (BD Insulin Syringe Ultra-Fine) Use 1 syringe needle once a day 100 ea 4RF E11.9 - Type 2 diabetes mellitus without complications To insulin syringe-needle U-100 (BD Insulin Syringe Ultra-Fine) Use 1 syringe needle fouir times a day 100 ea 11RF E11.9 - Type 2 diabetes mellitus without complications Coding Level of Care Code Est Pt Level 4 (65982) Diagnoses Cirrhosis of liver with ascites, unspecified hepatic cirrhosis type K74.60; R18.8 Hepatic cirrhosis type: unspecified hepatic cirrhosis Ascites presence: with ascites Bipolar affective disorder in remission F31.70 Active/Remission status: in remission of unspecified degree Moderate recurrent major depression F33.1 Type 2 diabetes mellitus without complication, unspecified whether medical terminologist insulin use E11.9 Diabetes mellitus type: type 2 Diabetes mellitus medical terminologist insulin use: unspecified halfway insulin use status Diabetes mellitus complication status: without complication Pure hypercholesterolemia E78.00 Portal hypertensive gastropathy K76.6; K31.89 Opioid dependence on agonist therapy F11.20 Time Spent (min) 26
[2023-09-25 08:47] VITALS: BP 150/80
== END 2023-09-25 08:36 | disposition home or self-care (01) ==
PROVIDERS: PCP Internal Medicine; Visit Provider Internal Medicine
DX: E11.9 Type 2 diabetes mellitus without complications (principal); K74.60 Unspecified cirrhosis of liver; F31.70 Bipolar disorder, currently in remission, most recent episode unspecified; K76.6 Portal hypertension; F11.20 Opioid dependence, uncomplicated; R18.8 Other ascites; E78.00 Pure hypercholesterolemia, unspecified; K31.89 Other diseases of stomach and duodenum
CPT/HCPCS: 83036; 99214

== ENCOUNTER 2023-10-08 07:49 | Outpatient (REF) | payer OTHER, SELFPAY ==
[2023-10-08 08:11] LABS: MANUAL DIFF FLAG NO
[2023-10-08 08:30] LABS: Basophils Percent Auto 0.6 % (0-2); Eosinophils Absolute Auto 0.1 X10*3/uL (0.0-0.4); Eosinophils Percent Auto 3.6 % (0-4); Hematocrit 32.7 % (42.0-52.0); Hemoglobin 10.4 g/dl (14.0-18.0); Lymphocytes Absolute Auto 1.3 X10*3/uL (1.2-4.9); Lymphocytes Percent Auto 41.9 % (20-40); Mean Corpuscular HGB Conc 31.8 g/dl (31.0-36.0); Mean Corpuscular Hemoglobin 24.3 pg (27.0-33.0); Mean Corpuscular Volume 76.4 fL (80.0-98.0); Mean Platelet Volume 10.5 fL (9.4-12.4); Monocytes Absolute Auto 0.3 X10*3/uL (0.1-1.2); Monocytes Percent Auto 9.7 % (2-11); Neutrophils Absolute Auto 1.4 x10*3/uL (2.0-8.3); Neutrophils Percent Auto 44.2 % (45-73); Platelet Count 100 X10*3/uL (160-400); Red Blood Count 4.28 X10*6/uL (4.60-5.80); Red Cell Distribution Width 17.4 % (11.0-16.0); White Blood Count 3.1 X10*3/uL (4.8-10.8)
[2023-10-08 08:32] LABS: Prothrombin Time 12.2 SEC (11.1-13.3)
[2023-10-08 09:05] LABS: Creatinine Urine 209.75 mg/dL; Microalbum/Creatinine Ratio Ur 6.1 ug/mg cr (<30)
[2023-10-08 09:12] LABS: Alanine Aminotransferase 35 U/L (0-40); Alkaline Phosphatase 145 U/L (39-117); Anion Gap 12 (12-20); Aspartate Amino Transferase 42 U/L (5-37); Bilirubin Total 0.7 mg/dL (0.0-1.0); Blood Urea Nitrogen 11 mg/dL (9-16); Calcium 9.3 mg/dL (8.4-10.2); Carbon Dioxide 23 mmol/L (22-29); Chloride 108 mmol/L (96-108); Cholesterol 168 mg/dL (<200); Estimated Glomerular Filt Rate > 60; Glucose Fasting 177 mg/dL (60-99); Glucose Random 175 mg/dL (60-115); HDL Cholesterol 50 mg/dL (>40); Iron 29 mcg/dL (45-160); LDL Cholesterol Calculated 102 mg/dL (<100); Percent Iron Saturation 8 % (15-50); Potassium 3.5 mmol/L (3.3-5.1); Sodium 139 mmol/L (135-145); Total Iron Binding Capacity 381 mcg/dL (228-428); Total Protein 7.1 g/dL (6.5-8.0); Triglycerides 84 mg/dL (<150); Unsaturated Iron Binding 352 ug/dL
[2023-10-08 09:13] LABS: Alanine Aminotransferase 36 U/L (0-40); Alkaline Phosphatase 143 U/L (39-117); Anion Gap 13 (12-20); Aspartate Amino Transferase 41 U/L (5-37); Bilirubin Total 0.7 mg/dL (0.0-1.0); Blood Urea Nitrogen 11 mg/dL (9-16); Calcium 9.2 mg/dL (8.4-10.2); Carbon Dioxide 23 mmol/L (22-29); Chloride 107 mmol/L (96-108); Estimated Glomerular Filt Rate > 60; Glucose Random 176 mg/dL (60-115); Potassium 3.6 mmol/L (3.3-5.1); Sodium 139 mmol/L (135-145); Total Protein 7.1 g/dL (6.5-8.0)
[2023-10-08 09:26] LABS: Vitamin D 25-OH Total 24.3 ng/mL (>30)
[2023-10-08 09:31] LABS: Ferritin 17 ng/mL (20-250)
[2023-10-08 09:39] LABS: Folate 10.1 ng/mL (> or = 4.0); Vitamin B12 705 pg/mL (200-900)
== END 2023-10-08 07:50 | disposition home or self-care (01) ==
LOC: HO.LAB 07:49
PROVIDERS: Absent Provider Internal Medicine; PCP Internal Medicine; Visit Provider Internal Medicine Gastroenterology
DX: Z01.818 Encounter for other preprocedural examination (principal); K74.60 Unspecified cirrhosis of liver; K75.81 Nonalcoholic steatohepatitis (NASH); E78.5 Hyperlipidemia, unspecified; E55.9 Vitamin D deficiency, unspecified; E11.9 Type 2 diabetes mellitus without complications; D64.9 Anemia, unspecified; E53.8 Deficiency of other specified B group vitamins
CPT/HCPCS: 36415; 80053; 80061; 82043; 82306; 82570; 82607; 82728; 82746; 83540; 85025; 85610

== ENCOUNTER 2023-10-24 08:16 | Outpatient (AMB) | payer OTHER, SELFPAY ==
--- NOTE | 2023-10-24 08:21 | MHC.OFFVIS ---
Vital Signs 10/24/23 08:22 Height 5 ft 6 in Weight 216 lb BMI 34.9 Intake Visit Reasons: OV - Left Knee OA Intake Note: Vasile is a 53 year old male who presents today for a follow up of his left knee OA. He was last seen on 04/04/23 where he received a left knee durolane injection. Patient is under the impression that he is receiving a repeat gel injection today however his appointment was booked incorrectly and there is no authorization on file. Allergies lisinopril Adverse Reaction (Intermediate, Verified 10/24/23 08:29) Headache HPI HPI OV - Left Knee OA: Details: Vasile is a 53 yo with longstanding post traumatic OA of the left knee. He received an injection (BROWN) ~6 months ago with benefit. He is starting to undergo his dental work in preparation for a TKA. He is having increasing difficulty ambulating however. [facility] Medical History Gastric ulcer Portal hypertensive gastropathy Cirrhosis GERD (gastroesophageal reflux disease) Normocytic anemia History of substance abuse Bipolar disorder Moderate recurrent major depression HCV (hepatitis C virus) Acid reflux Right knee pain Transaminitis Left knee pain Pure hypercholesterolemia Essential hypertension Diabetes mellitus Surgical History History of abdominal paracentesis Hx of esophagogastroduodenoscopy Family History Father CVD (cardiovascular disease) Diabetes Thyroid disease Maternal Grandmother Diabetes Brother Respiratory failure Asthma Sister No problems noted. Daughter No problems noted. Family/Other Mental health disorder Mother Mental health disorder Essential hypertension Social History Household Members: Family Housing: Apartment Do you presently have visiting nurse or other home services: No Alcohol intake: never Patient Tobacco Use Status: Current everyday Tobacco user Tobacco use type: Cigarette Cigarettes Per Day: 3 Years Smoked: 30 e-Cigarette/Vaping Use: Currently Using Second Hand Smoke Exposure: No service: No Current occupational status: unemployed Current occupation: Right Handed Cognitive needs: Yes Hearing needs: No Vision needs: No Physical Exam Vital Signs: BMI result Body Mass Index 34.9 Const General: no acute distress and alert Orientation/consciousness: patient oriented x3 Neuro General: patient oriented x3 Extrem Other: Left Knee: Mild-moderate effusion TTP medial joint line TTP medial compartment 5-125 degrees ROM Antalgic gait Assessment & Plan Assessment & Plan (1) Post-traumatic osteoarthritis of left knee: Code(s): M17.32 - Unilateral post-traumatic osteoarthritis, left knee Category: Medical (2) Arthritis of both knees: Code(s): M17.0 - Bilateral primary osteoarthritis of knee Category: Medical Plan: Vasile is a 53 year old man with severe left knee OA. He has pain with daily activity, worse with prolonged ambulation or using stairs. He is limited in his daily activity due to his pain and has not done well with conservative measures. He has some fear over receiving anesthesia and is anxious about receiving a knee replacement. I discussed left TKA and he is not ready for this. He cannot receive additional steroid injections b/c of DM. He benefitted from BROWN injections I recommend we repeat this. He is having dental work done in order to prepare for TKA. This is not likely to occur for at least 6 months. (3) Diabetes mellitus: Code(s): E11.9 - Type 2 diabetes mellitus without complications Category: Medical Qualifiers: Diabetes mellitus type: type 2 Diabetes mellitus long term care phlebotomist insulin use: unspecified retirement insulin use status Diabetes mellitus complication status: without complication Qualified Code(s): E11.9 - Type 2 diabetes mellitus without complications Plan: Steroid c/i in preparation for TKA Plan Scribed for Jose Llamas MD by Gabino Gomez medical appliance maker, on 12/01/21 at 12:00 PM, EST. I, Jose Llamas MD, have personally reviewed and agreed with the information entered by the medical appliance maker. Coding Level of Care Code Est Pt Level 4 (08982) Diagnoses Post-traumatic osteoarthritis of left knee M17.32 Arthritis of both knees M17.0 Type 2 diabetes mellitus without complication, unspecified whether long term care phlebotomist insulin use E11.9 Diabetes mellitus type: type 2 Diabetes mellitus retirement insulin use: unspecified long term care phlebotomist insulin use status Diabetes mellitus complication status: without complication
[2023-10-24 08:22] VITALS: BMI 34.9
== END 2023-10-24 08:53 | disposition home or self-care (01) ==
PROVIDERS: PCP Internal Medicine; Visit Provider Orthopaedic Surgery
DX: M17.32 Unilateral post-traumatic osteoarthritis, left knee (principal); M17.0 Bilateral primary osteoarthritis of knee; E11.9 Type 2 diabetes mellitus without complications
CPT/HCPCS: 99213

== ENCOUNTER → 2023-10-24 08:16 | Outpatient (BNVA) | payer OTHER, SELFPAY | PROVIDERS: PCP Internal Medicine; Visit Provider Orthopaedic Surgery | DX: M17.32 Unilateral post-traumatic osteoarthritis, left knee (principal); M17.0 Bilateral primary osteoarthritis of knee; E11.9 Type 2 diabetes mellitus without complications | CPT/HCPCS: 99212 ==

== ENCOUNTER 2023-11-04 08:20 | Outpatient (AMB) | payer OTHER, SELFPAY ==
--- NOTE | 2023-11-04 08:22 | A.OFFVIS_ITS ---
Vital Signs 11/04/23 08:33 Height 5 ft 6 in Weight 216 lb BMI 34.9 Intake Visit Reasons: Left Knee Durolane injection Intake Note: Vasile is a 53 year old male who presents today for a repeat Left Knee Durolane Injection. Last Durolane injection done 04/04/23 Allergies lisinopril Adverse Reaction (Intermediate, Verified 11/04/23 08:34) Headache HPI HPI Left Knee Durolane injection: Details: Vasile is a 53 year old male who presents today for a repeat Left Knee Durolane Injection. Last Durolane injection done 04/04/23 [facility] Medical History Gastric ulcer Portal hypertensive gastropathy Cirrhosis GERD (gastroesophageal reflux disease) Normocytic anemia History of substance abuse Bipolar disorder Moderate recurrent major depression HCV (hepatitis C virus) Acid reflux Right knee pain Transaminitis Left knee pain Pure hypercholesterolemia Essential hypertension Diabetes mellitus Surgical History History of abdominal paracentesis Hx of esophagogastroduodenoscopy Family History Father CVD (cardiovascular disease) Diabetes Thyroid disease Maternal Grandmother Diabetes Brother Respiratory failure Asthma Sister No problems noted. Daughter No problems noted. Family/Other Mental health disorder Mother Mental health disorder Essential hypertension Social History Household Members: Family Housing: Apartment Do you presently have visiting nurse or other home services: No Alcohol intake: never Patient Tobacco Use Status: Current everyday Tobacco user Tobacco use type: Cigarette Cigarettes Per Day: 3 Years Smoked: 30 e-Cigarette/Vaping Use: Currently Using Second Hand Smoke Exposure: No service: No Current occupational status: unemployed Current occupation: Right Handed Cognitive needs: Yes Hearing needs: No Vision needs: No Physical Exam Vital Signs: BMI result Body Mass Index 34.9 Extrem Other: skin c/d/i Office Procedures Joint Injection/Drain Joint Injection/Drain Details: Injected DUrolane. Site was prepped using aseptic technique. Patient tolerated the procedure well. Primary Site: left knee Approach Used: anterolateral Coding 66020 - Large joint Procedure code (CPT) selection complete Assessment & Plan Assessment & Plan (1) Post-traumatic osteoarthritis of left knee: Code(s): M17.32 - Unilateral post-traumatic osteoarthritis, left knee Category: Medical Plan I Injected his right Left knee with Durolane, he may see me no sooner that 3 months for cortisone and no sooner than 6 months for repeat Gel Coding Level of Care Code Est Pt Level 2 (09628) Diagnoses Post-traumatic osteoarthritis of left knee M17.32 CPT Codes Coding - 44804 Large joint: 64470 - Large joint ([id number])
[2023-11-04 08:33] VITALS: BMI 34.9
== END 2023-11-04 08:52 | disposition home or self-care (01) ==
PROVIDERS: PCP Internal Medicine; Visit Provider Orthopaedic Surgery
DX: M17.32 Unilateral post-traumatic osteoarthritis, left knee (principal)
CPT/HCPCS: 20610

== ENCOUNTER → 2023-11-04 08:20 | Outpatient (BNVA) | payer OTHER, SELFPAY | PROVIDERS: PCP Internal Medicine; Visit Provider Orthopaedic Surgery | DX: M17.32 Unilateral post-traumatic osteoarthritis, left knee (principal); T14.90XS Injury, unspecified, sequela | CPT/HCPCS: 20610; J7318 ==

== ENCOUNTER 2023-11-06 08:08 | Outpatient (REF) | payer OTHER, SELFPAY ==
--- NOTE | ~2023-11-06 | CT_ITS ---
EXAMINATION: CT ABDOMEN WITHOUT AND WITH CONTRAST CLINICAL INFORMATION: Cirrhosis. Evaluate for HCC. COMPARISON: Abdominal ultrasound 07/29/2023. CT abdomen 10/08/2022. TECHNIQUE: Contiguous axial thin section helical images of the abdomen were performed before and after the administration of 85 mL of Omnipaque 350 intravenous contrast. The data set was reformatted in the coronal and sagittal planes and reviewed on an independent workstation. This CT examination was performed using dose optimization techniques as appropriate, variously including the following: *Automated exposure control *Adjustment of mA and/or kV according to patient size (this includes techniques or standardized protocols for targeted exams where dose is matched to indication/reason for exam; i.e. extremities or head) *Use of iterative reconstruction technique DLP: 1099 mGy-cm FINDINGS: LUNG BASES: 4 mm spiculated nodule right lower lobe is stable compared to 10/08/2022. No follow-up imaging is necessary as per Fleischner Society guidelines. Calcified right infrahilar lymph nodes. LIVER, GALLBLADDER, AND BILIARY TREE: Cirrhotic liver. 1 cm simple cyst in the right hepatic lobe. No suspicious arterial phase enhancing mass. No focal area of washout on venous phase imaging. No biliary ductal dilatation. PANCREAS: No discrete pancreatic mass or pancreatic ductal dilatation. SPLEEN: Splenomegaly measuring 16 cm. ADRENAL GLANDS AND KIDNEYS: No adrenal mass. Multiple punctate nonobstructing calculi in both kidneys. No suspicious renal mass. No hydroureteronephrosis. BOWEL LOOPS: Visualized segments of small and large bowel are normal in caliber. There are gastroesophageal varices. LYMPH NODES: No lymphadenopathy. VASCULAR: No aortic aneurysm. The portal veins are patent. Recanalized umbilical vein. BONES: Ankylosis and degenerative changes in the spine. CT/CT abdomen wo/w IV con IMPRESSION: Cirrhosis, portal hypertension, splenomegaly, gastroesophageal varices. No suspicious liver mass. Continued surveillance is recommended.
== END 2023-11-06 08:09 | disposition home or self-care (01) ==
LOC: HO.CT 08:08
PROVIDERS: PCP Internal Medicine; Visit Provider Internal Medicine Gastroenterology
DX: K74.60 Unspecified cirrhosis of liver (principal)
CPT/HCPCS: 74170

== ENCOUNTER 2023-11-29 08:52 | Outpatient (AMB) | payer OTHER, SELFPAY ==
--- NOTE | 2023-11-29 08:58 | MHC.OFFVIS ---
Vital Signs 11/29/23 08:59 Height 5 ft 6 in Weight 216 lb 0.848 oz BMI 34.9 BP 144/81 H Blood Pressure Location Lt brachial Position Sitting Pulse 99 Intake Visit Reasons: f/u CT scan Intake Note: Vasile presents in the office as follow up. CC: Liquid for liver ended up giving him nausea, vomiting, headache, dizziness. Investor Relations Specialist Required: No Allergies lisinopril Adverse Reaction (Intermediate, Verified 11/29/23 09:02) Headache HPI HPI f/u CT scan: Details: 53-year-old male, with hx of untreated HCV, bipolar d/o, chronic knee pain, DM, HTN< and HLP who I am seeing for f/u for ascites and anemia due to cirrhosis RECAP: I had seen pt 09/2022 for melena, abdominal distention and abdominal pain denied history of alcohol abuse He had been taking ibuprofen q6 h for few years due to chronic knee pain, and is unsure if taking any PPI Patient had a diagnostic paracentesis which was negative for SBP, Admitted 08/17 with GI bleed and had EGD with banding Imaging: Abdomen pelvic CT 09/2022: cirrhosis with diffuse ascites, prominent collateral vessels, US 07/17-- neg for ascites, not needed paracentesis CT 10/2023-- cirrhosis, no liver masses SCOPES: EGD -01/2019--erosive gastritis, duodenitis and esophagitis. EGD- 09/2022--varices--banded, gastric ulcer EGD, colo --healed ulcer, varices grade II-not re banded, EGD 08/17 -- large varices, banded EGD 08/31/23-- varices--banded INTERIM: he tried carafate but he felt it made him unwell so stopped not taking drugs or alcohol, no nsaids no worsening distention, denies alcohol use, no smoking no abdominal pain is sick to severe asthma, and she needed trachesotomy --now better-- EXAM: GENERAL: The patient is well developed and nontoxic. VITAL SIGNS:see workflow HEENT: Nonicteric sclerae, PERRLA, EOMI. Oropharynx clear. Moist mucous membranes. Conjunctivae appear well perfused. No thyroid mass. CHEST: Chest wall is nontender. HEART: Regular rate and rhythm without murmurs. LUNGS: Clear to auscultation bilaterally. ABDOMEN: Soft, positive bowel sounds, nontender, no organomegaly.no flank tenderness--no shifting dullness SKIN: No rash, no excessive bruising, petechiae, or purpura. NEUROLOGIC: Cranial nerves II-XII intact without motor/sensory deficit. psych--nml A/P; 1/ Cirrhosis, with ascites and variceal bleeding decompensated due to NSAID use now seems to be compensated with avoidance of nsaid and no ascites --MELD na--9 2/ Gastric ulcer--resolved--h pylori was negative in the past 3/ Variceal bleeding, s/p banding 4/ Ascites--resolved, but strangely still has varices PLAN: 1/ Ascites--resolved, avodi nsaid, lo salt diet, cont with aldactone 2/ HE--no evidence of overt disease 3/ Varices- bleeding, rept EGD --due 11/2023--to take half dose of lantus night before-- 4/ HCC screen---due in about 6 months 5/ recheck labs next apptm 6/ colo screening with suprep 7/ if ongoing varices then maybe [facility] Medical History (Updated 11/29/23 @ 09:53 by Milton Hyatt MD) Cirrhosis Gastric ulcer Portal hypertensive gastropathy GERD (gastroesophageal reflux disease) Normocytic anemia History of substance abuse Bipolar disorder Moderate recurrent major depression HCV (hepatitis C virus) Acid reflux Right knee pain Transaminitis Left knee pain Pure hypercholesterolemia Essential hypertension Diabetes mellitus Surgical History History of abdominal paracentesis Hx of esophagogastroduodenoscopy Family History Father CVD (cardiovascular disease) Diabetes Thyroid disease Maternal Grandmother Diabetes Brother Respiratory failure Asthma Sister No problems noted. Daughter No problems noted. Family/Other Mental health disorder Mother Mental health disorder Essential hypertension Social History Household Members: Family Housing: Apartment Do you presently have visiting nurse or other home services: No Alcohol intake: never Patient Tobacco Use Status: Current everyday Tobacco user Tobacco use type: Cigarette Cigarettes Per Day: 3 Years Smoked: 30 e-Cigarette/Vaping Use: Currently Using Second Hand Smoke Exposure: No service: No Current occupational status: unemployed Current occupation: Right Handed Cognitive needs: Yes Hearing needs: No Vision needs: No Physical Exam Vital Signs: Last Vital Signs Pulse 99 11/29/23 08:59 BP 144/81 H 11/29/23 08:59 BMI result Body Mass Index 34.9 Assessment & Plan Assessment & Plan (1) Cirrhosis: Code(s): K74.60 - Unspecified cirrhosis of liver Category: Medical Qualifiers: Hepatic cirrhosis type: unspecified hepatic cirrhosis Ascites presence: with ascites Qualified Code(s): K74.60 - Unspecified cirrhosis of liver; R18.8 - Other ascites Plan: PLAN: 1/ Ascites--resolved, avodi nsaid, lo salt diet, cont with aldactone 2/ HE--no evidence of overt disease 3/ Varices- bleeding, rept EGD --due 11/2023--to take half dose of lantus night before-- 4/ HCC screen---due in about 6 months 5/ recheck labs next apptm 6/ colo screening with suprep 7/ if ongoing varices then maybe [facility] Medications: Refilled sodium,potassium,mag sulfates 17.5-3.13-1.6 gram (Suprep Bowel Prep Kit) DILUTE; drink 1/2 at 6-8 pm and half at 11 PM- 1AM 354 mL 0RF Coding Level of Care Code Est Pt Level 4 (54787) Diagnoses Cirrhosis of liver with ascites, unspecified hepatic cirrhosis type K74.60; R18.8 Hepatic cirrhosis type: unspecified hepatic cirrhosis Ascites presence: with ascites
[2023-11-29 08:59] VITALS: BP 144/81; PULSE 99; BMI 34.9
== END 2023-11-29 09:54 | disposition home or self-care (01) ==
PROVIDERS: PCP Internal Medicine; Visit Provider Internal Medicine Gastroenterology
DX: K74.60 Unspecified cirrhosis of liver (principal); R18.8 Other ascites
CPT/HCPCS: 99214

== ENCOUNTER → 2023-11-29 08:52 | Outpatient (BNVA) | payer OTHER, SELFPAY | PROVIDERS: PCP Internal Medicine; Visit Provider Internal Medicine Gastroenterology | DX: K74.60 Unspecified cirrhosis of liver (principal); R18.8 Other ascites | CPT/HCPCS: 99212 ==

== ENCOUNTER 2024-02-05 08:03 | Outpatient (AMB) | payer OTHER, SELFPAY ==
--- NOTE | 2024-02-05 08:11 | A.OFFPC_ITS ---
Vital Signs 02/05/24 08:12 Height 5 ft 6 in Weight 223 lb BMI 36.0 BP 138/86 Blood Pressure Location Lt brachial Position Sitting Intake Visit Reasons: dm- see comments Intake Note: Patient here for a follow up DM Journeyman Carpenter Required: No Accompanied by: Self / Same As Patient Allergies lisinopril Adverse Reaction (Intermediate, Verified 02/05/24 08:26) Headache Medication List - Last Reconciled 02/05/24 by Kierra Flanagan MD amlodipine 5 mg PO DAILY 90 days blood sugar diagnostic (ProprietárioDiretoTouch Ultra Test strips) Use 1 lancet twice a day blood-glucose meter (Vistronixuch Ultra2 Meter kit) As directed buprenorphine-naloxone 8-2 mg 8 mg sublingual TID carvedilol 3.125 mg See Protocol PO BID 90 days cholecalciferol (vitamin D3) 50 mcg PO DAILY 90 days clonazepam 0.5 mg PO DAILY PRN furosemide 20 mg See Protocol PO DAILY 90 days [handheld shower As directed] hydrocortisone 1% (Anti-Itch (hydrocortisone)) 1 appl topical TID PRN 2 weeks hydrocortisone 1% topical insulin glargine (Lantus U-100 Insulin) 50 units (0.5 mL) subcut BEDTIME 90 days insulin lispro (Humalog U-100 Insulin) 10 units (0.1 mL) subcut TID 90 days insulin syringe-needle U-100 (BD Insulin Syringe Ultra-Fine) Use 1 syringe needle fouir times a day lancets (ProprietárioDiretoTouch UltraSoft Lancets) Use 1 lancet twice a day lidocaine 5% 1 patch topical DAILY 30 days [nonslip shower mat As directed] pantoprazole 40 mg PO BID 90 days pen needle, diabetic Use 1 needle once a day pravastatin 20 mg PO BEDTIME 90 days prazosin 2 mg PO BEDTIME quetiapine 50 mg PO BID quetiapine mg PO Shower Chair As directed sodium,potassium,mag sulfates 17.5-3.13-1.6 gram (Suprep Bowel Prep Kit) DILUTE; drink 1/2 at 6-8 pm and half at 11 PM- 1AM spironolactone 50 mg See Protocol PO DAILY 90 days Tobacco use date assessed: 07/01/23 Dental Screening Dental Screen Date: 02/05/24 Did you have a dental visit in the last 12 months?: Yes Did you have a dental problem in the last 6 months where you did not have access to dental care?: No Was dental information given to patient?: Patient has dentist HPI HPI Comments History of Present Illness Details This is a 53-year-old male with diabetes mellitus type 2 on long-term current use of insulin, hypertension, cirrhosis secondary to hepatitis-C, opioid dependence on agonist therapy as well as moderate major depression and bipolar disorder that comes today for follow-up on his conditions. A1c elevated and I will increase long-acting insulin and short-acting insulin. Blood pressure stable. He has cirrhosis follow by Gastroenterology which has been stable. Denies any active bleeding. Has pancytopenia secondary to cirrhosis. On Suboxone for his opiate dependence which has been well control. Moderate major depression and bipolar disorder are follow by Psychiatry and has also been well controlled with medications. Denies any chest pain or shortness on breath. recently . COUNT INCLUDES THE [facility] Medical History (Updated 02/05/24 @ 08:37 by Kierra Flanagan MD) Cirrhosis Gastric ulcer Portal hypertensive gastropathy GERD (gastroesophageal reflux disease) Normocytic anemia History of substance abuse Bipolar disorder Moderate recurrent major depression HCV (hepatitis C virus) Acid reflux Right knee pain Transaminitis Left knee pain Pure hypercholesterolemia Essential hypertension Diabetes mellitus Surgical History History of abdominal paracentesis Hx of esophagogastroduodenoscopy Family History Father CVD (cardiovascular disease) Diabetes Thyroid disease Maternal Grandmother Diabetes Brother Respiratory failure Asthma Sister No problems noted. Daughter No problems noted. Family/Other Mental health disorder Mother Mental health disorder Essential hypertension Social History Household Members: Family Housing: Apartment Do you presently have visiting nurse or other home services: No Alcohol intake: never Patient Tobacco Use Status: Current everyday Tobacco user Tobacco use type: Cigarette Cigarettes Per Day: 3 Years Smoked: 30 Packs per year/per ci.50 e-Cigarette/Vaping Use: Currently Using Second Hand Smoke Exposure: No service: No Current occupational status: unemployed Current occupation: Right Handed Cognitive needs: Yes Hearing needs: No Vision needs: No Questionnaire Thrive Questionnaire Date Thrive assessed: 07/29/23 JOSEPH-7 AMB Questionnaire JOSEPH-7 Date JOSEPH - 7 assessed: 07/01/23 Source: Developed by Drs. Yaron Pinto, Carmen Black, Cameron Mc and colleagues, with an educational elizabeth from [employer]. Review of Systems Const All systems reviewed & are unremarkable except as noted in HPI and below Card Denies chest pain at rest, Denies chest pain with activity, Denies edema, Denies irregular heart rhythm, Denies claudication, Denies dyspnea, Denies dyspnea on exertion, Denies orthopnea, Denies paroxysmal nocturnal dyspnea and Denies slow heart rate Resp Denies cough, Denies dyspnea and Denies dyspnea on exertion GI Denies abdominal pain, Denies change in bowel habits, Denies excessive flatus, Denies nausea and Denies vomiting Denies urinary hesitancy, Denies urinary incontinence and Denies urinary urgency Musc Denies abnormal gait, Reports back pain, Denies atrophy, Denies deformity, Reports arthralgias and Denies limited range of motion Skin/Breast Denies bleeding lesions, Denies changing lesions and Denies rash Neuro Denies abnormal gait and Denies lack of coordination Physical exam (Primary Care) Vital Signs: Last Vital Signs BP 138/86 02/05/24 08:12 BMI result Body Mass Index 36.0 BMI Assessment/Plan discussion: High BMI High, discussed plan: lifestyle, weight reduction, dietary and physical activity Tobacco/Smoking Status: Tobacco use Status Tobacco use date assessed 07/01/23 02/05/24 08:22 Patient Tobacco Use Status Current everyday Tobacco 02/05/24 08:22 Tobacco use type Cigarette 02/05/24 08:22 e-Cigarette/Vaping Use Currently Using 02/05/24 08:22 Are you ready to quit: No Tobacco cessation counseling provided: Yes Items discussed: [employer] Relapse Prevention: discussed the importance of a supportive environment Number of minutes spent counselin CPT code: Less than 3 minutes Thrive Assessment: Date of Thrive Assessment Date Thrive assessed 07/29/23 02/05/24 08:22 Resp Effort & Inspection: normal respiratory effort Auscultation: clear to auscultation bilaterally Cardio Jugular venous distension: no JVD Rate: regular rate Rhythm: regular rhythm Heart sounds: S1 normal heart sound present and S2 normal heart sound present Extrem General: Yes full ROM Results AMB Hemoglobin A1c AMB Hemoglobin A1c 9.9 % Last Edit by ENIO Montanez on 02/05/24 08:2 4 Results Reviewed Results Reviewed: Laboratory Last Values Hgb A1c (Clinic) 9.9 % (4.0-6.0) H 02/05/24 08:10 Assessment and Plan Assessment & Plan (1) Cirrhosis: Code(s): K74.60 - Unspecified cirrhosis of liver Qualifiers: Hepatic cirrhosis type: unspecified hepatic cirrhosis Ascites presence: with ascites Qualified Code(s): K74.60 - Unspecified cirrhosis of liver; R18.8 - Other ascites Plan: Follow-up with Gastroenterology. (2) Opioid dependence on agonist therapy: Code(s): F11.20 - Opioid dependence, uncomplicated Plan: Continue Suboxone clinic. (3) Bipolar disorder: Code(s): F31.9 - Bipolar disorder, unspecified Qualifiers: Active/Remission status: in remission of unspecified degree Qualified Code(s): F31.70 - Bipolar disorder, currently in remission, most recent episode unspecified Plan: Continue Seroquel. Follow-up with psychiatry. (4) Moderate recurrent major depression: Comment: brianda avila [place] Code(s): F33.1 - Major depressive disorder, recurrent, moderate Plan: Continue Seroquel. Follow-up with psychiatry. (5) Diabetes mellitus: Code(s): E11.9 - Type 2 diabetes mellitus without complications Qualifiers: Diabetes mellitus type: type 2 Diabetes mellitus termite inspector insulin use: unspecified penitentiary insulin use status Diabetes mellitus complication status: without complication Qualified Code(s): E11.9 - Type 2 diabetes mellitus without complications Plan: Increase long-acting insulin from 50 units to 55 units. Increase short-acting insulin from 10 units to 15 units 3 times a day. Referred to Endocrinology. A1c goal is equal or less than 7%. (6) Essential hypertension: Code(s): I10 - Essential (primary) hypertension Plan: Continue amlodipine. Blood pressure goal is equal or less than 130/80. Orders: Orders Complete Blood Count Auto Diff 4 Months D64.9 - Anemia, unspecified Lipid Panel 4 Months E78.5 - Hyperlipidemia, unspecified Microalbumin, Random (w Creat) 4 Months E11.9 - Type 2 diabetes mellitus without complications Vitamin D 25-OH Total 4 Months E55.9 - Vitamin D deficiency, unspecified Comprehensive [place]. Panel Fast 4 Months K74.60 - Unspecified cirrhosis of liver , R18.8 - Other ascites AMB Hemoglobin A1c Today E11.9 - Type 2 diabetes mellitus without complications IRON PROFILE 4 Months D64.9 - Anemia, unspecified Vitamin B12 and Folate 4 Months E53.8 - Deficiency of other specified B group vitamins Referrals Dermatology Referral L98.9 - Disorder of the skin and subcutaneous tissue, unspecified Endocrinology Referral E11.9 - Type 2 diabetes mellitus without complications Medications: New clotrimazole 1% 1 appl topical BID 30 grams 1RF 4 weeks ibuprofen 800 mg PO Q8H PRN 90 tabs 0RF pain 30 days Changed From insulin lispro (Humalog U-100 Insulin) 10 units (0.1 mL) subcut TID 90 days 27 mL 3RF E11.9 - Type 2 diabetes mellitus without complications To insulin lispro (Humalog U-100 Insulin) 15 units (0.15 mL) subcut TID 40.5 mL 3RF 90 days E11.9 - Type 2 diabetes mellitus without complications From insulin glargine (Lantus U-100 Insulin) 50 units (0.5 mL) subcut BEDTIME 90 days 45 mL 2RF To insulin glargine (Lantus U-100 Insulin) 55 units (0.55 mL) subcut BEDTIME 49.5 mL 2RF 90 days Refilled pravastatin 20 mg PO BEDTIME 90 tabs 1RF 90 days cholecalciferol (vitamin D3) 50 mcg PO DAILY 90 caps 1RF 90 days E55.9 - Vitamin D deficiency, unspecified spironolactone 50 mg See Protocol PO DAILY 180 tabs 1RF 90 days lidocaine 5% leave on most painful area for up to 12 hrs 1 patch topical DAILY 30 ea 4RF 30 days amlodipine 5 mg PO DAILY 90 tabs 3RF 90 days carvedilol 3.125 mg See Protocol PO BID 180 tabs 1RF 90 days furosemide 20 mg See Protocol PO DAILY 90 tabs 1RF 90 days pantoprazole 40 mg PO BID 180 tabs 3RF 90 days Coding Level of Care Code Est Pt Level 4 (25173) Complex EM visit Add On G2211 Diagnoses Cirrhosis of liver with ascites, unspecified hepatic cirrhosis type K74.60; R18.8 Hepatic cirrhosis type: unspecified hepatic cirrhosis Ascites presence: with ascites Opioid dependence on agonist therapy F11.20 Bipolar affective disorder in remission F31.70 Active/Remission status: in remission of unspecified degree Moderate recurrent major depression F33.1 Type 2 diabetes mellitus without complication, unspecified whether termite inspector insulin use E11.9 Diabetes mellitus type: type 2 Diabetes mellitus termite inspector insulin use: unspecified termite inspector insulin use status Diabetes mellitus complication status: without complication Essential hypertension I10 Time Spent (min) 25
[2024-02-05 08:12] VITALS: BP 138/86; BMI 36.0
== END 2024-02-05 08:47 | disposition home or self-care (01) ==
PROVIDERS: PCP Internal Medicine; Visit Provider Internal Medicine
DX: K74.60 Unspecified cirrhosis of liver (principal); R18.8 Other ascites; F11.20 Opioid dependence, uncomplicated; F31.70 Bipolar disorder, currently in remission, most recent episode unspecified; F33.1 Major depressive disorder, recurrent, moderate; E11.9 Type 2 diabetes mellitus without complications; I10 Essential (primary) hypertension
CPT/HCPCS: 83036; 99214; G2211

== ENCOUNTER 2024-02-21 08:44 | Outpatient (AMB) | payer OTHER, SELFPAY ==
--- NOTE | 2024-02-21 08:55 | MHC.OFFVIS ---
Vital Signs 02/21/24 08:57 Height 5 ft 6 in Weight 227 lb 11.8 oz BMI 36.8 BP 142/70 H Blood Pressure Location Rt brachial Position Sitting Pulse 90 Pulse Source Pulse Oximeter Intake Visit Reasons: T2DM/LVM Intake Note: New patient present today for Diabetes Mellitus. Last Diabetic Eye exam: Due, 2 years Last Podiatry Visit: Does not see a Paleobotanist Random Glucose: 320 mg/dl HgA1C: 9.9% 02/05/24 Vice President Quality Improvement Required: Yes Vice President Quality Improvement Language: [employer] Scraper Services: Vice President Quality Improvement Present Vice President Quality Improvement Name: Lucio [id number] Information Interpreted: non-clinical & clinical Accompanied by: Self / Same As Patient Allergies lisinopril Adverse Reaction (Intermediate, Verified 02/21/24 09:11) Headache HPI Comments Details: This is a 53-year-old male with a past medical history of cirrhosis, hepatitis-C, opioid dependence, anemia, bipolar disorder, hyperlipidemia, hypertension and type 2 diabetes presenting for initial consult for diabetic management. [place]ian video truck headlight assembler used. He was diagnosed with Type II DM 30 years ago. Hemoglobin a1c 9.9% 02/05/24. Current medication regimen: Lantus 55 units at bedtime and Humalog 15 units 3 times daily, dosages increased 02/05/24. Compliance issues: He is taking Lantus at different times of day and not taking Humalog sometimes and taking it after he eats. He says he does not have a glucometer that works consistently. He has been using a family member's when it is available. Diet: Breakfast-coffee, bread, eggs Lunch-rice, chicken Dinner-rice, chicken, fish, vegetables Snacks/desserts: chips and crackers, sometimes candy No alcohol. Smokes 1 ppd. Hypoglycemia symptoms: Low 67 yesterday, felt sweaty and weak. He ate candy and symptoms resolved. Hyperglycemia symptoms: none Eye exam: needs referral, overdue Microvascular complications: Denies neuropathy, nephropathy, retinopathy Macrovascular complications: none Hypertension: treated with spironolactone 50 mg, carvedilol 3.125 mg twice daily, amlodipine 5 mg daily. Hyperlipidemia: treated with pravastatin 20 mg. ROS: Constitutional: No unexplained weight loss, fever, chills, +fatigue. Eyes: No vision changes, blurry vision, double vision Respiratory: No shortness of breath Cardiovascular: No chest pain Neurologic: No headache, dizziness, syncope, numbness or tingling in the extremities. Endocrine: No cold or heat intolerance. No polyuria or polydipsia. Physical exam: Constitutional: Alert, in no distress. Head: Normocephalic. Eyes: Pupils are equal, round and reactive to light. Extraocular muscles intact. Neck: Supple, Full range of motion. No lymphadenopathy. No palpable thyroid masses. Respiratory: Clear to auscultation. Cardiovascular: S1 S2 regular. No murmurs. Skin: No rashes or lesions. Musculoskeletal: No gross deformities. Normal range of motion. Right foot: Warm and well perfused. No clubbing, cyanosis or edema. DP pulse 3+. Decreased vibratory sensation. Intact sensation to monofilament. No open wounds. Left foot: Warm and well perfused. No clubbing, cyanosis or edema. DP pulse 3+. Decreased vibratory sensation. Intact sensation to monofilament. No open wounds. Psychiatric: Normal mood and affect. Cooperative. [facility] Medical History Cirrhosis Gastric ulcer Portal hypertensive gastropathy GERD (gastroesophageal reflux disease) Normocytic anemia History of substance abuse Bipolar disorder Moderate recurrent major depression HCV (hepatitis C virus) Acid reflux Right knee pain Transaminitis Left knee pain Pure hypercholesterolemia Essential hypertension Diabetes mellitus Surgical History History of abdominal paracentesis Hx of esophagogastroduodenoscopy Family History Father CVD (cardiovascular disease) Diabetes Thyroid disease Maternal Grandmother Diabetes Brother Respiratory failure Asthma Sister No problems noted. Daughter No problems noted. Family/Other Mental health disorder Mother Mental health disorder Essential hypertension Social History Household Members: Family Housing: Apartment Do you presently have visiting nurse or other home services: No Alcohol intake: never Patient Tobacco Use Status: Current everyday Tobacco user Tobacco use type: Cigarette Cigarettes Per Day: 3 Years Smoked: 30 e-Cigarette/Vaping Use: Currently Using Second Hand Smoke Exposure: No service: No Current occupational status: unemployed Current occupation: Right Handed Cognitive needs: Yes Hearing needs: No Vision needs: No Physical Exam Vital Signs: BMI result Body Mass Index 36.8 Results Reviewed Results Reviewed: Laboratory Tests 10/08/23 10/08/23 02/05/24 08:10 08:11 08:10 Creatinine 0.79 Estimated GFR > 60 Hgb A1c (Clinic) 9.9 H AST 42 H ALT 35 Alkaline Phosphatase 145 H Triglycerides 84 Cholesterol 168 LDL Cholesterol, Calc 102 H HDL Cholesterol 50 Urine Creatinine 209.75 Urine Microalbumin 13.0 Microalb/Creat Ratio 6.1 Assessment & Plan Assessment & Plan (1) Type 2 diabetes mellitus with hyperglycemia: Code(s): E11.65 - Type 2 diabetes mellitus with hyperglycemia Category: Medical Qualifiers: Diabetes mellitus truck terminal manager insulin use: with halfway use Qualified Code(s): E11.65 - Type 2 diabetes mellitus with hyperglycemia; Z79.4 - watermelon harvesting supervisor (current) use of insulin (2) Pure hypercholesterolemia: Code(s): E78.00 - Pure hypercholesterolemia, unspecified Category: Medical (3) Essential hypertension: Code(s): I10 - Essential (primary) hypertension Category: Medical Plan In summary this is a pleasant, 53 year old male with uncontrolled Type II DM who presented for initial consult today. He has not been taking his medications properly. I explained the importance of this and provided written instruction to take Lantus 55 units at the same time nightly and Humalog 15 minutes prior to his meals. I did not make adjustments to his dosages at the moment since there is no BG data to review. I sent a glucometer and freestyle nyla to his pharmacy. He will return in 4 weeks to review this and adjust medications. I considered addition of Glp1 which can be used in patients with cirrhosis, but I reviewed his most recent CT abdomen and he has gastroesophageal varices. I'd be hesitant to do this due to potential GI side effects including vomiting which could lead to variceal rupture. Other options are Metformin and SGLT2. Referred to [place] and medical manager. Referred for diabetic eye exam. Reviewed lifestyle modification. His blood pressure is suboptimal today. Recheck at next visit. LDL near goal. Reviewed dietary changes and recommended smoking cessation. Continue statin. Follow up in 4 weeks for DM. Orders: Referrals Diabetes Education Referral E11.65 - Type 2 diabetes mellitus with hyperglycemia Content Assistant Nutrition Referral E11.9 - Type 2 diabetes mellitus without complications Ophthalmology Referral E11.9 - Type 2 diabetes mellitus without complications Medications: New blood-glucose meter (FreeStyle Lite Meter kit) 3 times a day 1 ea 0RF E11.9 - Type 2 diabetes mellitus without complications glucose (Dex4 Glucose) until symptoms of low blood sugar are controlled 16 grams (4 x 4 gram) PO Q15M PRN 60 tabs 1RF hypoglycemia blood-glucose meter,continuous (FreeStyle Nyla 3 [place]) as directed 1 ea 0RF blood-glucose sensor (FreeStyle Nyla 3 Sensor device) apply new sensor every 14 days as directed 2 ea 11RF lancets (FreeStyle Lancets) Use as directed to monitor glucose up to 5 times daily 200 ea 5RF blood sugar diagnostic (FreeStyle Lite Strips) As directed to check glucose up to 5 times daily 200 ea 5RF Patient Instructions: Take Lantus 55 units nightly at the same time every night. Take Humalog 15 units 15 minutes BEFORE meals. If you experience low blood sugar, treat this by eating a chewable fruit candy like skittles or jelly beans (about 8 pieces), 4 ounces (1/2 cup) of fruit juice (not diet), 1 tablespoon of honey or 4 glucose tablets. If your blood sugar is under 50, take double the amount of one of the above. Recheck your blood sugar in 15 minutes. Coding Level of Care Code New Pt Level 4 (94311) Complex EM visit Add On G2211 Diagnoses Type 2 diabetes mellitus with hyperglycemia, with long-term current use of insulin E11.65; Z79.4 Diabetes mellitus halfway insulin use: with truck terminal manager use Pure hypercholesterolemia E78.00 Essential hypertension I10
[2024-02-21 08:57] VITALS: BP 142/70; PULSE 90; BMI 36.8
[2024-02-21 09:15] LABS: Glucose, Whole Blood 320 mg/dL (60-115)
== END 2024-02-21 09:40 | disposition home or self-care (01) ==
PROVIDERS: PCP Internal Medicine; Visit Provider Physician Assistant Medical
DX: E11.65 Type 2 diabetes mellitus with hyperglycemia (principal); Z79.4 Long term (current) use of insulin; E78.00 Pure hypercholesterolemia, unspecified; I10 Essential (primary) hypertension
CPT/HCPCS: 99204; G2211

== ENCOUNTER → 2024-02-21 08:44 | Outpatient (BNVA) | payer OTHER, SELFPAY | PROVIDERS: PCP Internal Medicine; Visit Provider Physician Assistant Medical | DX: E11.65 Type 2 diabetes mellitus with hyperglycemia (principal); I10 Essential (primary) hypertension; E78.00 Pure hypercholesterolemia, unspecified; Z79.4 Long term (current) use of insulin | CPT/HCPCS: 82947; 99202 ==

== ENCOUNTER 2024-03-05 08:44 | Outpatient (AMB) | payer OTHER, SELFPAY ==
--- NOTE | 2024-03-05 09:02 | A.OFFVIS_ITS ---
VS Expanded 03/05/24 09:03 Height 5 ft 6 in Weight 226 lb 13.69 oz BMI 36.6 Intake Visit Reasons: DM/CONFIRMED Allergies lisinopril Adverse Reaction (Intermediate, Verified 02/21/24 09:11) Headache Nutrition Presentation Details: Pt presents for MNT, initial visit for T2DM. Pt was referred by Odin ALEGRIA Monitoring Most Recent Diabetes Results: No Data to Display LUG-Kuqufzr-Ke.Jeor Equation Height: 5 ft 6 in Weight: 227 lb Resting Metabolic Rate: 1820.62 Calculated Activity Level: Mild Activity Calories Needed to Maintain Weight: 2503.35 Diagnosis Nutrition problem #1: excessive energy intake As related to (etiology) #1: diagnosis As evidenced by (sign/symptom) #1: knowledge deficit of diet Learning/Education Readiness to learn: good [facility] Medical History (Updated 02/21/24 @ 09:48 by JORDAN Florentino) Type 2 diabetes mellitus with hyperglycemia Cirrhosis Gastric ulcer Portal hypertensive gastropathy GERD (gastroesophageal reflux disease) Normocytic anemia History of substance abuse Bipolar disorder Moderate recurrent major depression HCV (hepatitis C virus) Acid reflux Right knee pain Transaminitis Left knee pain Pure hypercholesterolemia Essential hypertension Diabetes mellitus Surgical History History of abdominal paracentesis Hx of esophagogastroduodenoscopy Family History Father CVD (cardiovascular disease) Diabetes Thyroid disease Maternal Grandmother Diabetes Brother Respiratory failure Asthma Sister No problems noted. Daughter No problems noted. Family/Other Mental health disorder Mother Mental health disorder Essential hypertension Social History Household Members: Family Housing: Apartment Do you presently have visiting nurse or other home services: No Alcohol intake: never Patient Tobacco Use Status: Current everyday Tobacco user Tobacco use type: Cigarette Cigarettes Per Day: 3 Years Smoked: 30 e-Cigarette/Vaping Use: Currently Using Second Hand Smoke Exposure: No service: No Current occupational status: unemployed Current occupation: Right Handed Cognitive needs: Yes Hearing needs: No Vision needs: No Assessment & Plan Assessment & Plan (1) Type 2 diabetes mellitus with hyperglycemia: Code(s): E11.65 - Type 2 diabetes mellitus with hyperglycemia Category: Medical Qualifiers: Diabetes mellitus terminal supervisor insulin use: with shelter use Qualified Code(s): E11.65 - Type 2 diabetes mellitus with hyperglycemia; Z79.4 - assisted (current) use of insulin Plan: Wt: 103 Kg ( February 2024 ) Est kcal needs as per MSJ: 2500 (40% carb, 30% protein/fat) Est fluid needs as per 25-30 ml/d: 3100 Est prot per day as per 1 g/kg bw: 103 Recommend fiber intake : 8-10 g per day and gradually increase to 25-28 g per day for women and 35-38 g for men or as tolerated Recommend sodium intake per day : less than 2300 mg Educated patient on: ( R = reviewed V = verbalizes understanding N/R = needs review N/A = not applicable * Food sources of carbohydrate, adequate serving sizes and its role in various health conditions: R * Differences between complex carbohydrates a simple carbohydrates, role of fiber in diet: R V N/R * Lean protein sources of foods: R V NR * Differences between types of fats and role in diet (mono on saturated fat fatty acids, saturated fatty acids, trans fats): R V N/R * Food sources of sodium in salt and healthy modifications for heart health in kidney health: R V R/V * Vitamins and minerals: R V N/R * Healthy plate method concept: R * Physical activity: Benefits a precaution: R V N/R * Hypoglycemia protocol (rule of 15): R V N/R * Dietary prevention of Hyperglycemia: R Patient Instructions: Reduce on sugar in eating coffee, beverages pastries and the like Work on balancing meals by following healthy plate method Seen meal ideas as reference consisting of 60-80 g of carbs a meal time Coding Level of Care Code Nutr Indiv Intake (99194) Diagnoses Type 2 diabetes mellitus with hyperglycemia, with long-term current use of insulin E11.65; Z79.4 Diabetes mellitus terminal supervisor insulin use: with terminal supervisor use Time Spent (min) 30
[2024-03-05 09:03] VITALS: BMI 36.6
[2024-03-05 09:34] VITALS: BMI 36.6
== END 2024-03-05 09:27 | disposition home or self-care (01) ==
PROVIDERS: PCP Internal Medicine; Visit Provider Dietitian, Registered
DX: E11.65 Type 2 diabetes mellitus with hyperglycemia (principal); Z79.4 Long term (current) use of insulin

== ENCOUNTER → 2024-03-05 08:44 | Outpatient (BNVA) | payer OTHER, SELFPAY | PROVIDERS: PCP Internal Medicine; Visit Provider Dietitian, Registered | DX: E11.65 Type 2 diabetes mellitus with hyperglycemia (principal); Z79.4 Long term (current) use of insulin | CPT/HCPCS: 97802 ==

== ENCOUNTER 2024-04-03 08:06 | Outpatient (AMB) | payer OTHER, SELFPAY ==
--- NOTE | 2024-04-03 08:11 | A.OFFVIS_ITS ---
Vital Signs 04/03/24 08:14 04/03/24 10:55 Height 5 ft 6 in Weight 222 lb 10.67 oz BMI 35.9 BP 158/90 H 140/78 H Blood Pressure Location Rt brachial Rt brachial Position Sitting Sitting Pulse 96 Pulse Source Pulse Oximeter Intake Visit Reasons: DM/CONFIRMED Intake Note: Patient presents today for a follow-up on Type 2 Diabetes Mellitus: Last Diabetic eye exam was on: DUE Last Podiatry exam was on: Does not see a Collateral Clerk Most recent HbA1c: 9.9%, 02/05/2024 Random Glucose- 414 mg/dL, Today 8:19 am Supervisor Hot Dip Plating Required: Yes Supervisor Hot Dip Plating Language: Regional Agronomist Services: Supervisor Hot Dip Plating Present Supervisor Hot Dip Plating Name: [employer] video call Accompanied by: Self / Same As Patient Allergies lisinopril Adverse Reaction (Intermediate, Verified 04/03/24 08:12) Headache Medication List - Last Reconciled 04/03/24 by JORDAN Florentino amlodipine 5 mg PO DAILY 90 days blood sugar diagnostic (FreeStyle Lite Strips) As directed to check glucose up to 5 times daily blood-glucose meter (FreeStyle Lite Meter kit) 3 times a day blood-glucose meter,continuous (FreeStyle Nyla 3 [place]) as directed blood-glucose sensor (FreeStyle Nyla 3 Sensor device) apply new sensor every 14 days as directed buprenorphine-naloxone 8-2 mg 8 mg sublingual TID carvedilol 3.125 mg See Protocol PO BID 90 days cholecalciferol (vitamin D3) 50 mcg PO DAILY 90 days clonazepam 0.5 mg PO DAILY PRN clotrimazole 1% 1 appl topical BID 4 weeks furosemide 20 mg See Protocol PO DAILY 90 days glucose (Dex4 Glucose) 16 grams (4 x 4 gram) PO Q15M PRN [handheld shower As directed] hydrocortisone 1% (Anti-Itch (hydrocortisone)) 1 appl topical TID PRN 2 weeks hydrocortisone 1% topical ibuprofen 800 mg PO Q8H PRN 30 days insulin glargine (Lantus U-100 Insulin) 55 units subcut BEDTIME insulin lispro (Humalog U-100 Insulin) 15 units (0.15 mL) subcut TID 90 days lancets (FreeStyle Lancets) Use as directed to monitor glucose up to 5 times daily lidocaine 5% 1 patch topical DAILY 30 days [nonslip shower mat As directed] pantoprazole 40 mg PO BID 90 days pen needle, diabetic Use 1 needle once a day pen needle, diabetic (BD Josie 2nd Gen Pen Needle) As directed to administer insulin four times daily pravastatin 20 mg PO BEDTIME 90 days prazosin 2 mg PO BEDTIME quetiapine 50 mg PO BID quetiapine mg PO Shower Chair As directed sodium,potassium,mag sulfates 17.5-3.13-1.6 gram (Suprep Bowel Prep Kit) DILUTE; drink 1/2 at 6-8 pm and half at 11 PM- 1AM spironolactone 50 mg See Protocol PO DAILY 90 days HPI Comments Details: This is a 53-year-old male with a past medical history of cirrhosis, hepatitis- C, opioid dependence, anemia, bipolar disorder, hyperlipidemia, hypertension and type 2 diabetes presenting for diabetic management. [place]ic video certified court interpreter used, but the patient spoke Citizen [place] for the majority of the visit. POC 414 today. He denies symptoms of hyperglycemia. States he only has symptoms if blood sugar is over 500. Ate breakfast 7 am which was bread and coffee with cream and sugar. He took Humalog 15 units 15 minutes AFTER the meal around 07:30. He took Lantus 50 units last night. He was diagnosed with Type II DM 30 years ago. Hemoglobin a1c 9.9% 02/05/24. Current medication regimen: Lantus 55 units at bedtime and Humalog 15 units 3 times daily, dosages increased 02/05/24. Compliance issues: He is taking Lantus every night since our last visit, but he is only taking 50 units, and he is taking Humalog 15 minutes after meals. Patient says his psychiatric issues, stress about his dog who is older and the previous of his impact his ability to manage his diabetes and medication administration. He is checking fingerstick BG inconsistently. This morning at breakfast it was in the high 300s per patient. He doesn't have it with him. He is frustrated because the 1st time he he came for the appointment with the perinatal educator he did not have the sensors so they reschedule the appointment yesterday. He picked up the sensors from the pharmacy and went to the appointment yesterday, but they told him he did not have an appointment. He was never dispensed a reader. He was not dispensed a fingerstick glucometer I prescribed either. No alcohol. Smokes 1 ppd. Hypoglycemia symptoms: Denies symptoms since last visit. Hyperglycemia symptoms: Patient says he gets no symptoms unless BG 500+ and then he feels fatigued. Eye exam: needs referral, overdue Microvascular complications: Denies neuropathy, nephropathy, retinopathy Macrovascular complications: none Hypertension: treated with spironolactone 50 mg, carvedilol 3.125 mg twice daily, amlodipine 5 mg daily. Hyperlipidemia: treated with pravastatin 20 mg. ROS: Constitutional: No unexplained weight loss, fever, chills, fatigue or night sweats. Eyes: No vision changes, blurry vision, double vision Respiratory: No shortness of breat Cardiovascular: No chest pain or palpitations. No pedal edema. Gastrointestinal: No nausea, vomiting or abdominal pain. Neurologic: No headache, dizziness, syncope, unilateral weakness, ataxia, numbness or tingling in the extremities. Skin: No open wounds. Endocrine: No cold or heat intolerance. No polyuria or polydipsia. Physical exam: Constitutional: Alert, in no distress. Head: Normocephalic. Eyes: Pupils are equal, round and reactive to light. Extraocular muscles intact. Neck: Supple, Full range of motion. No lymphadenopathy. No palpable thyroid masses. Respiratory: Clear to auscultation. Cardiovascular: S1 S2 regular. No murmurs. Skin: Warm, dry Extremities: Warm and well perfused, no edema Psychiatric: Patient was mildly agitated initially, but this resolved over the course of the visit. [facility] Medical History Type 2 diabetes mellitus with hyperglycemia Cirrhosis Gastric ulcer Portal hypertensive gastropathy GERD (gastroesophageal reflux disease) Normocytic anemia History of substance abuse Bipolar disorder Moderate recurrent major depression HCV (hepatitis C virus) Acid reflux Right knee pain Transaminitis Left knee pain Pure hypercholesterolemia Essential hypertension Diabetes mellitus Surgical History History of abdominal paracentesis Hx of esophagogastroduodenoscopy Family History Father CVD (cardiovascular disease) Diabetes Thyroid disease Maternal Grandmother Diabetes Brother Respiratory failure Asthma Sister No problems noted. Daughter No problems noted. Family/Other Mental health disorder Mother Mental health disorder Essential hypertension Social History Household Members: Family Housing: Apartment Do you presently have visiting nurse or other home services: No Alcohol intake: never Patient Tobacco Use Status: Current everyday Tobacco user Tobacco use type: Cigarette Cigarettes Per Day: 3 Years Smoked: 30 e-Cigarette/Vaping Use: Currently Using Second Hand Smoke Exposure: No service: No Current occupational status: unemployed Current occupation: Right Handed Cognitive needs: Yes Hearing needs: No Vision needs: No Physical Exam Vital Signs: Last Vital Signs Pulse 96 04/03/24 08:14 BP 158/90 H 04/03/24 08:14 BMI result Body Mass Index 35.9 Results Reviewed Results Reviewed: Laboratory Last Values Glucose (Clinic) 414 mg/dL (60-115) H* 04/03/24 08:18 Assessment & Plan Assessment & Plan (1) Type 2 diabetes mellitus with hyperglycemia: Code(s): E11.65 - Type 2 diabetes mellitus with hyperglycemia Category: Medical Qualifiers: Diabetes mellitus long filler cigar roller machine insulin use: with group home use Qualified Code(s): E11.65 - Type 2 diabetes mellitus with hyperglycemia; Z79.4 - medical terminologist (current) use of insulin Plan This is a 53 year old male with uncontrolled Type II DM with hyperglycemia and POC of 414 today. His dose of Humalog was an hour ago and he still has severe hyperglycemia so I recommended administration of Humalog in office and monitoring for 1 hour to recheck glucose. Patient refused. I advised the patient using the certified court interpreter that leaving without treatment and monitoring we will put him at risk of diabetic coma and DKA and . He continued to decline insulin and monitoring today. Patient says he will go home and drink water and recheck his sugar. He agreed to go to the emergency department if he develops symptoms including lethargy, confusion, nausea, vomiting and weakness. Patient advised to increase Lantus to 55 units nightly. Again we discussed proper administration of Humalog. He needs to take 15 units 15 minutes prior to meals. I contacted his pharmacy. They will dispense fingerstick glucometer I sent today with lancets and test strips. Initially they said prior authorization for the reader was not done, but the office verified it was completed, and the pharmacy will have the reader for him on Saturday. The patient was informed. He is seeing the dietitian. Follow up in 3 weeks to review CGM. Medications: New lancets (OneTouch Delica Plus Lancet) Use as directed to check blood glucose fives times daily. 200 ea 5RF blood-glucose meter (OneTouch Verio Flex Meter) Use as directed to check blood glucose five times daily for type II diabetes. 1 ea 0RF pen needle, diabetic (BD Josie 2nd Gen Pen Needle) As directed to administer insulin four times daily 200 ea 11RF blood sugar diagnostic (OneTouch Verio test strips) Use as directed to check blood glucose five times daily. 200 ea 5RF Refilled blood-glucose meter,continuous (FreeStyle Nyla 3 [place]) as directed 1 ea 0RF Discontinued lancets (OneTouch UltraSoft Lancets) Discontinued Reason: Doctor's Order Use 1 lancet twice a day 100 ea 6RF E11.9 - Type 2 diabetes mellitus without complications insulin syringe-needle U-100 (BD Insulin Syringe Ultra-Fine) Discontinued Reason: Doctor's Order Use 1 syringe needle fouir times a day 100 ea 11RF E11.9 - Type 2 diabetes mellitus without complications blood-glucose meter (OneTouch Ultra2 Meter kit) Discontinued Reason: Doctor's Order As directed 1 ea 0RF E11.9 - Type 2 diabetes mellitus without complications blood sugar diagnostic (OneTouch Ultra Test strips) Discontinued Reason: Doctor's Order Use 1 lancet twice a day 100 ea 6RF E11.9 - Type 2 diabetes mellitus without complications blood-glucose meter (FreeStyle Lite Meter kit) Discontinued Reason: Doctor's Order 3 times a day 1 ea 0RF E11.9 - Type 2 diabetes mellitus without complications lancets (FreeStyle Lancets) Discontinued Reason: Doctor's Order Use as directed to monitor glucose up to 5 times daily 200 ea 5RF blood sugar diagnostic (FreeStyle Lite Strips) Discontinued Reason: Doctor's Order As directed to check glucose up to 5 times daily 200 ea 5RF Coding Level of Care Code Est Pt Level 5 (82841) Complex EM visit Add On G2211 Diagnoses Type 2 diabetes mellitus with hyperglycemia, with long-term current use of insulin E11.65; Z79.4 Diabetes mellitus group home insulin use: with long filler cigar roller machine use Time Spent (min) 46 Comment coordinating treatment, direct pt care, completing documentation
[2024-04-03 08:14] VITALS: BP 158/90; PULSE 96; BMI 35.9
[2024-04-03 08:22] LABS: Glucose, Whole Blood 414 mg/dL (60-115)
[2024-04-03 10:55] VITALS: BP 140/78
== END 2024-04-03 08:52 | disposition home or self-care (01) ==
PROVIDERS: PCP Internal Medicine; Visit Provider Physician Assistant Medical
DX: E11.65 Type 2 diabetes mellitus with hyperglycemia (principal); Z79.4 Long term (current) use of insulin

== ENCOUNTER → 2024-04-03 08:06 | Outpatient (BNVA) | payer OTHER, SELFPAY | PROVIDERS: PCP Internal Medicine; Visit Provider Physician Assistant Medical | DX: E11.65 Type 2 diabetes mellitus with hyperglycemia (principal); E78.5 Hyperlipidemia, unspecified; Z79.4 Long term (current) use of insulin | CPT/HCPCS: 82947; 99212 ==

== ENCOUNTER 2024-04-24 08:03 | Outpatient (AMB) | payer OTHER, SELFPAY ==
--- NOTE | 2024-04-24 08:14 | A.OFFVIS_ITS ---
Vital Signs 04/24/24 08:18 Height 5 ft 6 in Weight 220 lb 7.396 oz BMI 35.6 BP 132/84 Blood Pressure Location Rt brachial Position Sitting Pulse 86 Intake Visit Reasons: DM/LVM Intake Note: Patient presents today for a follow-up on Type 2 Diabetes Mellitus: Last Diabetic eye exam was on: DUE Last Podiatry exam was on: Does not see a Soil Specialist Most recent HbA1c: 9.9%, 02/05/2024 Random Glucose- 264 mg/dL, Today 8:19 am Transitions Manager Rn Required: Yes Transitions Manager Rn Language: Investigative Research Specialist Services: Transitions Manager Rn Offered & Declined Accompanied by: Self / Same As Patient Allergies lisinopril Adverse Reaction (Intermediate, Verified 04/03/24 08:12) Headache HPI Comments Details: This is a 53-year-old male with a past medical history of cirrhosis, hepatitis- C, opioid dependence, anemia, bipolar disorder, hyperlipidemia, hypertension and type 2 diabetes presenting for diabetic management. POC 264 today. He denies symptoms of hyperglycemia. He was diagnosed with Type II DM 30 years ago. Hemoglobin a1c 9.9% 02/05/24. Current medication regimen: Lantus 55 units at bedtime and Humalog 15 units 3 times daily. Compliance issues: He is taking Lantus 55 units every night since our last visit, but he is only taking 50 units, and he is now taking Humalog 15 minutes before rather than after meals. Patient says his psychiatric issues, stress about his dog who is older and the previous of his impact his ability to manage his diabetes and medication administration. He received his glucometer from the pharmacy and the Tap[employer] 3 sensors, and they application is downloaded to his phone. He did not have other sensor yet. Patient says since his last visit and improved compliance he is no longer having glucose readings in the 400s and 500s. He had 1 reading of 380. He has seen some readings between 160 and 180. He denies hypoglycemia. He does not have his meter with him today. No alcohol. Smokes 1 ppd. Hypoglycemia symptoms: Denies symptoms since last visit. Hyperglycemia symptoms: Patient says he gets no symptoms unless BG 500+ and then he feels fatigued. Eye exam: Referred. Microvascular complications: Denies neuropathy, nephropathy, retinopathy Macrovascular complications: none Hypertension: treated with spironolactone 50 mg, carvedilol 3.125 mg twice daily, amlodipine 5 mg daily. Hyperlipidemia: treated with pravastatin 20 mg. ROS: Constitutional: No unexplained weight loss, fever, chills, fatigue or night sweats. Eyes: No vision changes, blurry vision, double vision Respiratory: No shortness of breath Cardiovascular: No chest pain or palpitations. No pedal edema. Neurologic: No headache, dizziness, syncope, unilateral weakness, ataxia, numbness or tingling in the extremities. Skin: No open wounds. Endocrine: No cold or heat intolerance. No polyuria or polydipsia. Physical exam: Constitutional: Alert, in no distress. Head: Normocephalic. Eyes: Pupils are equal, round and reactive to light. Extraocular muscles intact. Neck: Supple, Full range of motion. No lymphadenopathy. No palpable thyroid masses. Respiratory: Clear to auscultation. Cardiovascular: S1 S2 regular. No murmurs. Skin: Warm, dry Extremities: Warm and well perfused, no edema PFSH Medical History Type 2 diabetes mellitus with hyperglycemia Cirrhosis Gastric ulcer Portal hypertensive gastropathy GERD (gastroesophageal reflux disease) Normocytic anemia History of substance abuse Bipolar disorder Moderate recurrent major depression HCV (hepatitis C virus) Acid reflux Right knee pain Transaminitis Left knee pain Pure hypercholesterolemia Essential hypertension Diabetes mellitus Surgical History History of abdominal paracentesis Hx of esophagogastroduodenoscopy Family History Father CVD (cardiovascular disease) Diabetes Thyroid disease Maternal Grandmother Diabetes Brother Respiratory failure Asthma Sister No problems noted. Daughter No problems noted. Family/Other Mental health disorder Mother Mental health disorder Essential hypertension Social History Household Members: Family Housing: Apartment Do you presently have visiting nurse or other home services: No Alcohol intake: never Patient Tobacco Use Status: Current everyday Tobacco user Tobacco use type: Cigarette Cigarettes Per Day: 3 Years Smoked: 30 e-Cigarette/Vaping Use: Currently Using Second Hand Smoke Exposure: No service: No Current occupational status: unemployed Current occupation: Right Handed Cognitive needs: Yes Hearing needs: No Vision needs: No Results Reviewed Results Reviewed: Laboratory Last Values Glucose (Clinic) 264 mg/dL (60-115) H 04/24/24 08:20 Laboratory Tests 10/08/23 10/08/23 02/05/24 08:10 08:11 08:10 Creatinine 0.79 Estimated GFR > 60 Hgb A1c (Clinic) 9.9 H AST 42 H ALT 35 Alkaline Phosphatase 145 H Triglycerides 84 Cholesterol 168 LDL Cholesterol, Calc 102 H HDL Cholesterol 50 Urine Creatinine 209.75 Urine Microalbumin 13.0 Microalb/Creat Ratio 6.1 Assessment & Plan Assessment & Plan (1) Type 2 diabetes mellitus with hyperglycemia: Code(s): E11.65 - Type 2 diabetes mellitus with hyperglycemia Category: Medical Qualifiers: Diabetes mellitus senior living insulin use: with senior living use Qualified Code(s): E11.65 - Type 2 diabetes mellitus with hyperglycemia; Z79.4 - detention (current) use of insulin Plan This is a 53 year old male with uncontrolled Type II DM with no known complic ations. Interval improvement. Patient is happy about this today. Increase Lantus from 55 to 60 units nightly. Continue Humalog 15 units prior to meals. Nyla 3 sensor applied to patient today, and he left while the helena on his phone was in the warm up period. Patient saw dietitian 03/05/2024. We will discuss referral back to inclusion paraeducator at his next appointment. He will return in 2 weeks to review CGM data. Reviewed proper treatment of hypoglycemia. He has glucose tablets at home. Follow up in 2 weeks for Type II DM. Orders: Referrals Ophthalmology Referral E11.65 - Type 2 diabetes mellitus with hyperglycemia, Z79.4 - detention (current) use of insulin Coding Level of Care Code Est Pt Level 4 (16139) Complex EM visit Add On G2211 Diagnoses Type 2 diabetes mellitus with hyperglycemia, with long-term current use of insulin E11.65; Z79.4 Diabetes mellitus senior living insulin use: with senior living use
[2024-04-24 08:18] VITALS: BP 132/84; PULSE 86; BMI 35.6
[2024-04-24 08:26] LABS: Glucose, Whole Blood 264 mg/dL (60-115)
== END 2024-04-24 09:05 | disposition home or self-care (01) ==
LOC: HO.ENCR 08:03
PROVIDERS: PCP Internal Medicine; Visit Provider Physician Assistant Medical
DX: E11.65 Type 2 diabetes mellitus with hyperglycemia (principal); Z79.4 Long term (current) use of insulin

== ENCOUNTER → 2024-04-24 08:03 | Outpatient (BNVA) | payer OTHER, SELFPAY | PROVIDERS: PCP Internal Medicine; Visit Provider Physician Assistant Medical | DX: E11.65 Type 2 diabetes mellitus with hyperglycemia (principal); Z79.4 Long term (current) use of insulin | CPT/HCPCS: 82947; 99212 ==

== ENCOUNTER 2024-05-19 08:32 | Outpatient (AMB) | payer OTHER, SELFPAY ==
--- NOTE | 2024-05-19 08:39 | A.OFFVIS_ITS ---
Vital Signs 05/19/24 08:40 Height 5 ft 6 in Weight 222 lb 10.67 oz BMI 35.9 BP 140/88 H Blood Pressure Location Rt brachial Position Sitting Pulse 96 Pulse Source Pulse Oximeter Intake Visit Reasons: T2DM/CONF Intake Note: Patient presents today for a follow-up on Type 2 Diabetes Mellitus: Last Diabetic eye exam was on: DUE Last Podiatry exam was on: Does not see a Assistant Superintendent Most recent HbA1c: 9.8%, 05/19/2024 Random Glucose- 398 mg/dL, Today Preschool Assistant Required: Yes Preschool Assistant Language: Spring Former Services: Preschool Assistant Offered & Declined Accompanied by: Self / Same As Patient Allergies lisinopril Adverse Reaction (Intermediate, Verified 05/19/24 08:48) Headache HPI Comments Details: This is a 53-year-old male with a past medical history of cirrhosis, hepatitis- C, opioid dependence, anemia, bipolar disorder, hyperlipidemia, hypertension and type 2 diabetes presenting for diabetic management. POC 398 today. He denies symptoms of hyperglycemia. He was diagnosed with Type II DM 30 years ago. Hemoglobin a1c 9.9% 02/05/24. Today it is 9.8%. Current medication regimen: Lantus 60 units at bedtime and Humalog 15 units 3 times daily. He does not have the glucometer with him today, but he is checking his blood sugars. He reports blood sugars in the morning are in the 200s and 300s. After eating blood sugars are 300s and 400s. Sometimes his machine just reads high. Patient says his sensor malfunctioned, and he has not been able to use his CGM. He has the reader and sensors at home. Compliance issues:Patient says his psychiatric issues, stress about his dog who is older and the previous of his impact his ability to manage his diabetes and medication administration. No alcohol. Smokes 1 ppd. Hypoglycemia symptoms: Denies symptoms or episodes since last visit. Hyperglycemia symptoms: Patient says he gets no symptoms unless BG 500+ and then he feels fatigued. Microvascular complications: Denies neuropathy, nephropathy, retinopathy Macrovascular complications: none Hypertension: treated with spironolactone 50 mg, carvedilol 3.125 mg twice daily, amlodipine 5 mg daily. His blood pressure is elevated today, but he says this is because his dog is not feeling well, and he is anxious to get home and does not have a lot of time for the appointment. Hyperlipidemia: treated with pravastatin 20 mg. ROS: Constitutional: No unexplained weight loss, fever, chills , fatigue or night sweats. Eyes: No vision changes, blurry vision, double vision Respiratory: No shortness of breath Cardiovascular: No chest pain or palpitations. No pedal edema. Neurologic: No headache, dizziness, syncope, unilateral weakness, ataxia, numbness or tingling in the extremities. Skin: No open wounds. Endocrine: No cold or heat intolerance. No polyuria or polydipsia. Physical exam: Constitutional: Alert, in no distress. Head: Normocephalic. Eyes: Pupils are equal, round and reactive to light. Extraocular muscles intact. Neck: Supple, Full range of motion. No lymphadenopathy. No palpable thyroid masses. Respiratory: Clear to auscultation. Cardiovascular: S1 S2 regular. No murmurs. Skin: Warm, dry Extremities: Warm and well perfused, no edema PFSH Medical History Type 2 diabetes mellitus with hyperglycemia Cirrhosis Gastric ulcer Portal hypertensive gastropathy GERD (gastroesophageal reflux disease) Normocytic anemia History of substance abuse Bipolar disorder Moderate recurrent major depression HCV (hepatitis C virus) Acid reflux Right knee pain Transaminitis Left knee pain Pure hypercholesterolemia Essential hypertension Diabetes mellitus Surgical History History of abdominal paracentesis Hx of esophagogastroduodenoscopy Family History Father CVD (cardiovascular disease) Diabetes Thyroid disease Maternal Grandmother Diabetes Brother Respiratory failure Asthma Sister No problems noted. Daughter No problems noted. Family/Other Mental health disorder Mother Mental health disorder Essential hypertension Social History Household Members: Family Housing: Apartment Do you presently have visiting nurse or other home services: No Alcohol intake: never Patient Tobacco Use Status: Current everyday Tobacco user Tobacco use type: Cigarette Cigarettes Per Day: 3 Years Smoked: 30 e-Cigarette/Vaping Use: Currently Using Second Hand Smoke Exposure: No service: No Current occupational status: unemployed Current occupation: Right Handed Cognitive needs: Yes Hearing needs: No Vision needs: No Physical Exam Vital Signs: Last Vital Signs Pulse 96 05/19/24 08:40 BP 140/88 H 05/19/24 08:40 BMI result Body Mass Index 35.9 Results Reviewed Results Reviewed: Laboratory Last Values Glucose (Clinic) 398 mg/dL (60-115) H* 05/19/24 08:45 Laboratory Tests 10/08/23 10/08/23 08:10 08:11 Creatinine 0.79 Estimated GFR > 60 Triglycerides 84 Cholesterol 168 LDL Cholesterol, Calc 102 H HDL Cholesterol 50 Urine Creatinine 209.75 Urine Microalbumin 13.0 Microalb/Creat Ratio 6.1 Assessment & Plan Assessment & Plan (1) Type 2 diabetes mellitus with hyperglycemia: Code(s): E11.65 - Type 2 diabetes mellitus with hyperglycemia Category: Medical Qualifiers: Diabetes mellitus halfway insulin use: with terminal operations supervisor use Qualified Code(s): E11.65 - Type 2 diabetes mellitus with hyperglycemia; Z79.4 - terminal operations supervisor (current) use of insulin Plan This is a 53 year old male with uncontrolled Type II DM with no known complications. Azfar-Kunfrtld-Dzkg class A (per GI prior ascites resolved). Patient says he has tolerated metformin in the past. We will restart metformin extended release 500 mg once a day. Monitor for GI side effects. If he experiences nausea or vomiting he was instructed to stop taking this. Increase Lantus from 60 to 65 units nightly. Increase Humalog to 18 units prior to meals. Patient will schedule a follow up with the medical educator to trouble shoot CGM. He is continuing to use a fingerstick glucometer for now. Patient saw dietitian 03/05/2024. Reviewed proper treatment of hypoglycemia. He has glucose tablets at home. Follow up in 3 weeks for type 2 diabetes. Medications: New metformin ER 500 mg PO DAILY 90 tabs 0RF Patient Instructions: Aumente Lantus a 65 unidades diarias. Aumente Humalog a 18 unidades holly veces al d?a antes de las comidas. Start Metformin ER 500 mg once daily. Coding Level of Care Code Est Pt Level 4 (75370) Complex EM visit Add On G2211 Diagnoses Type 2 diabetes mellitus with hyperglycemia, with long-term current use of insulin E11.65; Z79.4 Diabetes mellitus halfway insulin use: with halfway use
[2024-05-19 08:40] VITALS: BP 140/88; PULSE 96; BMI 35.9
[2024-05-19 08:50] LABS: Glucose, Whole Blood 398 mg/dL (60-115)
== END 2024-05-19 09:09 | disposition home or self-care (01) ==
PROVIDERS: PCP Internal Medicine; Visit Provider Physician Assistant Medical
DX: E11.65 Type 2 diabetes mellitus with hyperglycemia (principal); Z79.4 Long term (current) use of insulin

== ENCOUNTER → 2024-05-19 08:32 | Outpatient (BNVA) | payer OTHER, SELFPAY | PROVIDERS: PCP Internal Medicine; Visit Provider Physician Assistant Medical | DX: E11.65 Type 2 diabetes mellitus with hyperglycemia (principal); E78.5 Hyperlipidemia, unspecified; I10 Essential (primary) hypertension; Z79.4 Long term (current) use of insulin; Z79.899 Other long term (current) drug therapy | CPT/HCPCS: 82947; 83036; 99212 ==

== ENCOUNTER 2024-06-02 08:10 | Outpatient (AMB) | payer OTHER, SELFPAY ==
--- NOTE | 2024-06-02 08:13 | MHC.PC.OV ---
Vital Signs 06/02/24 08:14 Height 5 ft 6 in Weight 224 lb BMI 36.2 BP 162/80 H Blood Pressure Location Lt brachial Position Sitting Intake Visit Reasons: Annual Exam Intake Note: Patient here for an annual physical exam Reel Cutter Required: No Accompanied by: Self / Same As Patient Allergies lisinopril Adverse Reaction (Intermediate, Verified 06/02/24 08:38) Headache Medication List - Last Reconciled 06/02/24 by Kierra Flanagan MD amlodipine 5 mg PO DAILY 90 days blood sugar diagnostic (OneTouch Verio test strips) Use as directed to check blood glucose five times daily. blood-glucose meter (EtubicsTouch Verio Flex Meter) Use as directed to check blood glucose five times daily for type II diabetes. blood-glucose meter,continuous (FreeStyle Nyla 3 Byers) as directed blood-glucose sensor (FreeStyle Nyla 3 Sensor device) apply new sensor every 14 days as directed buprenorphine-naloxone 8-2 mg 8 mg sublingual TID carvedilol 3.125 mg See Protocol PO BID 90 days cholecalciferol (vitamin D3) 50 mcg PO DAILY 90 days clonazepam 0.5 mg PO DAILY PRN clotrimazole 1% 1 appl topical BID 4 weeks furosemide 20 mg See Protocol PO DAILY 90 days glucose (Dex4 Glucose) 16 grams (4 x 4 gram) PO Q15M PRN [handheld shower As directed] hydrocortisone 1% (Anti-Itch (hydrocortisone)) 1 appl topical TID PRN 2 weeks hydrocortisone 1% topical ibuprofen 800 mg PO Q8H PRN 30 days insulin glargine (Lantus U-100 Insulin) 65 units subcut BEDTIME insulin lispro (Humalog U-100 Insulin) 18 units subcut TID insulin syringe-needle U-100 (BD Insulin Syringe Ultra-Fine) As directed to administer Humalog three times daily insulin syringe-needle U-100 (BD Insulin Syringe Ultra-Fine) As directed to administer Lantus insulin once daily. lancets (EtubicsTouch Delica Plus Lancet) Use as directed to check blood glucose fives times daily. lidocaine 5% 1 patch topical DAILY 30 days metformin ER 500 mg PO DAILY [nonslip shower mat As directed] pantoprazole 40 mg PO BID 90 days pen needle, diabetic Use 1 needle once a day pen needle, diabetic (BD Josie 2nd Gen Pen Needle) As directed to administer insulin four times daily pravastatin 20 mg PO BEDTIME 90 days prazosin 2 mg PO BEDTIME quetiapine 50 mg PO BID quetiapine mg PO Shower Chair As directed sodium,potassium,mag sulfates 17.5-3.13-1.6 gram (Suprep Bowel Prep Kit) DILUTE; drink 1/2 at 6-8 pm and half at 11 PM- 1AM spironolactone 50 mg See Protocol PO DAILY 90 days Tobacco use date assessed: 07/01/23 Dental Screening Dental Screen Date: 02/05/24 HPI HPI Comments History of Present Illness Details The patient is a 54-year-old male presenting for his physical exam and management of multiple chronic conditions and requesting various referrals. The patient has a history of chronic liver disease and post-treatment of Hepatitis C, which has complicated his medical management. He currently manages a diagnosis of type 2 diabetes mellitus, which includes issues with his glucose monitoring sensor, reportedly malfunctioning and affecting his blood sugar readings significantly. The last HbA1c was noted to be 9.8%. The patient also experiences essential hypertension, which has been inconsistently managed due to missed doses of amlodipine. He mentioned a history of major depressive disorder, particularly after the passing of his , contributing to significant psychosocial stress. Additionally, the patient reported undiagnosed vision impairment requiring ophthalmology follow-up, and ongoing dermatitis for which dermatology follow-up was not completed due to misplacement of contact information. The patient discussed challenges with adherence to current medications, including a history of substance use disorder managed with suboxone for over 15 years without relapse. Vitamin D deficiency was previously noted. The patient also has gastroesophageal reflux disease and ceased pantoprazole as per prior instruction. - Due for Tetanus vaccine (Tdap) since last dose was in 2012. - Hepatitis B vaccination: Third dose due today. - Diabetes management with insulin and monitoring including HbA1c. - Monitoring for hypertension and ensuring medication adherence. - Regular follow-up with endocrinology for diabetes. - Colonoscopy done 2022 and fire coordinator wanted to repeat it this year. [facility] Medical History Type 2 diabetes mellitus with hyperglycemia Cirrhosis Gastric ulcer Portal hypertensive gastropathy GERD (gastroesophageal reflux disease) Normocytic anemia History of substance abuse Bipolar disorder Moderate recurrent major depression HCV (hepatitis C virus) Acid reflux Right knee pain Transaminitis Left knee pain Pure hypercholesterolemia Essential hypertension Diabetes mellitus Surgical History History of abdominal paracentesis Hx of esophagogastroduodenoscopy Family History Father CVD (cardiovascular disease) Diabetes Thyroid disease Maternal Grandmother Diabetes Brother Respiratory failure Asthma Sister No problems noted. Daughter No problems noted. Family/Other Mental health disorder Mother Mental health disorder Essential hypertension Social History Household Members: Family Housing: Apartment Do you presently have visiting nurse or other home services: No Alcohol intake: never Patient Tobacco Use Status: Current everyday Tobacco user Tobacco use type: Cigarette Cigarettes Per Day: 3 Years Smoked: 30 e-Cigarette/Vaping Use: Currently Using Second Hand Smoke Exposure: No service: No Current occupational status: unemployed Current occupation: Right Handed Cognitive needs: Yes Hearing needs: No Vision needs: No Questionnaire PHQ-9 Over the last 2 weeks, how often have you been bothered by any of the following problems? 1. Little interest or pleasure in doing things: not at all 2. Feeling down, depressed, or hopeless: not at all 3. Trouble falling or staying asleep, or sleeping too much: nearly every day 4. Feeling tired or having little energy: nearly every day 5. Poor appetite or overeating: not at all 6. Feeling bad about yourself - or that you are a failure or have let yourself or your family down: nearly every day 7. Trouble concentrating on things, such as reading the newspaper or watching television: nearly every day 8. Moving or speaking so slowly that other people could have noticed. Or the opposite - being so fidgety or restless that you have been moving around a lot more than usual: more than half the days 9. Thoughts that you would be better off or of hurting yourself in some way: nearly every day Total score: 17 Depression Screening Interpretation: Positive Depression Screening Follow-up: Existing condition, In treatment, Community Mental Health Worker F/U and Follow-up Visit Requested Depression Screening Done: Yes 91163 - PHQ-9 Billing: Yes Source: Developed by Carmen Tucker.W. Wayne, Cameron Mc and colleagues, with an educational elizabeth from [email or web address]. Thrive Questionnaire Date Thrive assessed: 07/29/23 I am a: Patient What is your living situation today?: I have a steady place to live Within the past 12 months, did the food you bought not last and you didn't have the money to get more?: Often true Within the past 12 months, did you worry whether your food would run out before you got money to buy more?: Sometimes True Do you have trouble paying for medicines?: No Do you have trouble getting transportation to medical appointments?: No Do you have trouble paying your heating and electricity bill?: Yes Do you have trouble taking care of your child, family member or friend?: No Do you have trouble with day-to-day activities such as bathing, preparing meals, shopping, managing finances, etc.?: Yes Are you currently unemployed and looking for a job?: Yes Are you interested in more education?: No Please select the resources that you would like help with: Housing/Correction, Food and Utilities Currently or been in a relationship where the following occur: I choose not to answer THRIVE Score: 3 AUDIT C Alcohol Use Questionnaire (AUDIT-C) 1. How often do you have a drink containing alcohol?: Never Total Score: 0 JOSEPH-7 AMB Questionnaire JOSEPH-7 Date JOSEPH - 7 assessed: 07/01/23 Feeling nervous, anxious, or on edge: 3 = Nearly every day Not being able to stop or control worryin = Nearly every day Worrying too much about different things: 3 = Nearly every day Trouble relaxin = Nearly every day Being so restless that it is hard to sit still: 3 = Nearly every day Becoming easily annoyed or irritable: 3 = Nearly every day Feeling afraid as if something awful might happen: 3 = Nearly every day Total JOSEPH-7 score (0-4 normal; 5-9 mild; 10-14 moderate; 15-21 severe): 21 Source: Developed by Drs. Yaron Pinto, Carmen Black, Cameron Mc and colleagues, with an educational elizabeth from [email or web address]. JOSEPH-7 Assessment Billing JOSEPH-7 Assessment Tool: JOSEPH-7 Assessment 53591 Review of Systems Const All systems reviewed & are unremarkable except as noted in HPI and below Card Denies chest pain at rest, Denies chest pain with activity, Denies edema, Denies irregular heart rhythm, Denies claudication, Denies dyspnea, Denies dyspnea on exertion, Denies orthopnea, Denies paroxysmal nocturnal dyspnea and Denies slow heart rate Resp Denies cough, Denies dyspnea and Denies dyspnea on exertion Musc Denies atrophy, Denies deformity and Denies limited range of motion Physical exam (Primary Care) Vital Signs: Last Vital Signs BP 162/80 H 06/02/24 08:14 BMI result Body Mass Index 36.2 BMI Assessment/Plan discussion: High BMI High, discussed plan: lifestyle, weight reduction, dietary and physical activity Tobacco/Smoking Status: Tobacco use Status Tobacco use date assessed 07/01/23 06/02/24 08:19 Patient Tobacco Use Status Current everyday Tobacco 06/02/24 08:19 Tobacco use type Cigarette 06/02/24 08:19 e-Cigarette/Vaping Use Currently Using 06/02/24 08:19 Are you ready to quit: No Tobacco cessation counseling provided: Yes Items discussed: Nicotine replacement Relapse Prevention: discussed the importance of a supportive environment, discussed negative mood or depression after quitting and weight gain after smoking is common Number of minutes spent counselin CPT code: 41626 - 4-10 Minutes PHQ-9: PHQ-9 Score PHQ-9: Total score 17 06/02/24 09:13 Depression Screening Interpretation: Positive Depression Screening Follow-up: Existing condition, In treatment, Community Mental Health Worker F/U and Follow-up Visit Requested Thrive Assessment: Date of Thrive Assessment Date Thrive assessed 07/29/23 06/02/24 08:19 Currently or been in a relationship where the following occur: I choose not to answer [facility] Head: Yes normal to inspection, Yes normocephalic and Yes atraumatic Ears: external ears normal Eyes General: appearance normal, both eyes and all related structures Eyelids: Yes eyelids normal Conjunctivae: conjunctivae normal Neck Neck: Yes normal visual inspection and Yes supple Resp Effort & Inspection: normal respiratory effort Auscultation: clear to auscultation bilaterally Cardio Jugular venous distension: no JVD Rate: regular rate Rhythm: regular rhythm Heart sounds: S1 normal heart sound present and S2 normal heart sound present GI Inspection: Yes normal to inspection Palpation (GI): Soft to palpation and nontender Auscultation: normal bowel sounds Skin General skin exam: no rashes or lesions noted Neuro General: no focal motor deficits Extrem General: Yes full ROM Psych Appearance: grossly normal Immunizations Recombivax HB (PF) 10 mcg/mL intramuscular suspension Performing Provider: Kierra Flanagan MD Performing Location: [facility] Adult [facility] Administered by: Aleksandra Peterson LPN on 06/02/24 09:13 Dose Route Admin Location Dispensed Lot Number Expiration Date [facility] Tower Supervisor 1 mL IM Left Deltoid 1 mL [id number] 02/14/26 23463-774-29 Medical SimulationITHKLINE VIS Given Date VIS Provided VIS Publication Date 06/02/24 Single Vaccine 22 Eligibility Eligibility Date Funding Source Not VFC Eligible 06/02/24 Private Boostrix Tdap 2.5 Lf unit-8 mcg-5 Lf/0.5 mL intramuscular syringe Performing Provider: Kierra Flanagan MD Performing Location: [facility] Adult [facility] Administered by: Aleksandra Peterosn LPN on 06/02/24 09:14 Dose Route Admin Location Dispensed Lot Number Expiration Date [facility] Tower Supervisor 0.5 mL IM Left Deltoid 0.5 mL [id number] 07/15/26 [id number] Medical SimulationITHEvoinfinityINE VIS Given Date VIS Provided VIS Publication Date 06/02/24 Single Vaccine 21 Eligibility Eligibility Date Funding Source Not [facility] Eligible 06/02/24 Private Coding Level of Care Code Est Pt Level 3 (57877) Est Pt Prev Care 40-64y(89652) Diagnoses Physical exam Z00.00 Type 2 diabetes mellitus with hyperglycemia, with long-term current use of insulin E11.65; Z79.4 Diabetes mellitus detention insulin use: with detention use Opioid dependence on agonist therapy F11.20 Cirrhosis of liver with ascites, unspecified hepatic cirrhosis type K74.60; R18.8 Hepatic cirrhosis type: unspecified hepatic cirrhosis Ascites presence: with ascites Skin lesion L98.9 History of substance abuse F19.11 Moderate recurrent major depression F33.1 Bipolar affective disorder in remission F31.70 Active/Remission status: in remission of unspecified degree Essential hypertension I10 Additional Codes JOSEPH-7 Assessment Billing - JOSEPH-7 Assessment Tool: JOSEPH-7 Assessment 84073 ([id number]) PHQ-9 - 19965 - PHQ-9 Billing: Yes ([id number]) Vital Signs *Quality* - CPT code: 75903 - 4-10 Minutes ([id number]) Time Spent (min) 40 Assessment & Plan Assessment & Plan (1) Physical exam: Code(s): Z00.00 - Encounter for general adult medical examination without abnormal findings Category: Medical (2) Type 2 diabetes mellitus with hyperglycemia: Code(s): E11.65 - Type 2 diabetes mellitus with hyperglycemia Category: Medical Qualifiers: Diabetes mellitus detention insulin use: with buttermilk drier operator use Qualified Code(s): E11.65 - Type 2 diabetes mellitus with hyperglycemia; Z79.4 - termination clerk (current) use of insulin (3) Opioid dependence on agonist therapy: Code(s): F11.20 - Opioid dependence, uncomplicated Category: Medical (4) Cirrhosis: Code(s): K74.60 - Unspecified cirrhosis of liver Category: Medical Qualifiers: Hepatic cirrhosis type: unspecified hepatic cirrhosis Ascites presence: with ascites Qualified Code(s): K74.60 - Unspecified cirrhosis of liver; R18.8 - Other ascites (5) Skin lesion: Code(s): L98.9 - Disorder of the skin and subcutaneous tissue, unspecified Category: Medical (6) History of substance abuse: Code(s): F19.11 - Other psychoactive substance abuse, in remission Category: Medical (7) Moderate recurrent major depression: Comment: brianda avila [place] Code(s): F33.1 - Major depressive disorder, recurrent, moderate Category: Medical (8) Bipolar disorder: Code(s): F31.9 - Bipolar disorder, unspecified Category: Medical Qualifiers: Active/Remission status: in remission of unspecified degree Qualified Code(s): F31.70 - Bipolar disorder, currently in remission, most recent episode unspecified (9) Essential hypertension: Code(s): I10 - Essential (primary) hypertension Category: Medical Plan - Essential Hypertension: Monitor blood pressure closely. Reinforce the importance of consistent medication adherence to amlodipine. - Type 2 Diabetes Mellitus: Adjust glucometer/sensor for accurate readings and ensure insulin administration as prescribed. - Vision Impairment: Urgent referral to ophthalmology for evaluation and management. - Chronic Liver Disease: Continue monitoring liver function tests and ongoing management. - Dermatitis: Referral to dermatology for rash evaluation and management. - Major Depressive Disorder: Discuss ongoing support and consider referral to mental health services if necessary. - Substance Use Disorder: Continue suboxone as prescribed, no changes in management. - Vitamin D Deficiency: Recommend continuation of vitamin D supplements. - Gastroesophageal Reflux Disease: Review need for pantoprazole therapy based on current dietary and symptomatic assessment. Patient was informed and verbally consented to the use of an ambient scribe for clinic note documentation during this visit. During this encounter, we discussed the management of the patient's multiple chronic conditions and the necessary referrals to dermatology and ophthalmology. I emphasized the importance of medication adherence, especially concerning amlodipine and insulin. We talked about the malfunction of the patient's glucose monitoring sensor, which will require replacement or adjustment. The patient agreed that the control of his diabetes and hypertension should be improved to prevent complications. We also addressed the initiation of his Hepatitis B vaccination regimen and the Tetanus booster, explaining the importance of these preventive measures. We discussed the social and emotional impacts of his recent loss, encouraging him to reach out should there be a need for mental health support. Orders: Orders Complete Blood Count Auto Diff Today D64.9 - Anemia, unspecified Microalbumin, Random (w Creat) Today R80.9 - Proteinuria, unspecified Comprehensive [facility] Mark. Panel Fast Today E11.65 - Type 2 diabetes mellitus with hyperglycemia, Z79.4 - senior living (current) use of insulin TDaP Immunization Today Z23 - Encounter for immunization Hepatitis B Adult Immunization Today Z23 - Encounter for immunization Vitamin B12 and Folate Today E53.8 - Deficiency of other specified B group vitamins Vitamin D 25-OH Total Today E55.9 - Vitamin D deficiency, unspecified IRON PROFILE Today D64.9 - Anemia, unspecified Lipid Panel Today E78.5 - Hyperlipidemia, unspecified Referrals Ophthalmology Referral E11.65 - Type 2 diabetes mellitus with hyperglycemia, Z79.4 - termination clerk (current) use of insulin Medications: Refilled hydrocortisone 1% (Anti-Itch (hydrocortisone)) 1 appl topical TID PRN 28.4 grams 1RF skin irritation 2 weeks Discontinued pantoprazole Discontinued Reason: Patient Completed Course 40 mg PO BID 90 days 180 tabs 3RF Patient Instructions: - Ensure regular administration of all prescribed medications, including amlodipine and insulin. - Visit ophthalmology for a comprehensive eye exam to address vision changes. - Follow up with dermatology for the rash; use the provided contact and referral. - Bring in the malfunctioning glucose meter for replacement or recalibration. - Maintain a log of blood sugar readings three times daily to monitor trends. - Schedule and attend vaccination appointments as planned. - Seek support for mental health if needed, especially in dealing with recent losses. - Avoid sudden changes in medication without consultation.
[2024-06-02 08:14] VITALS: BP 162/80; BMI 36.2
== END 2024-06-02 09:12 | disposition home or self-care (01) ==
PROVIDERS: PCP Internal Medicine; Visit Provider Internal Medicine
DX: Z00.00 Encounter for general adult medical examination without abnormal findings (principal); E11.65 Type 2 diabetes mellitus with hyperglycemia; Z79.4 Long term (current) use of insulin; F11.20 Opioid dependence, uncomplicated; K74.60 Unspecified cirrhosis of liver; F19.11 Other psychoactive substance abuse, in remission; F33.1 Major depressive disorder, recurrent, moderate; F31.70 Bipolar disorder, currently in remission, most recent episode unspecified; R18.8 Other ascites; L98.9 Disorder of the skin and subcutaneous tissue, unspecified; I10 Essential (primary) hypertension; Z23 Encounter for immunization

== ENCOUNTER → 2024-06-02 08:10 | Outpatient (BNVA) | payer OTHER, SELFPAY | PROVIDERS: PCP Internal Medicine; Visit Provider Internal Medicine | DX: Z00.00 Encounter for general adult medical examination without abnormal findings (principal); Z23 Encounter for immunization; E11.65 Type 2 diabetes mellitus with hyperglycemia; F11.20 Opioid dependence, uncomplicated; K74.60 Unspecified cirrhosis of liver; R18.8 Other ascites; L98.9 Disorder of the skin and subcutaneous tissue, unspecified; F19.11 Other psychoactive substance abuse, in remission; F33.1 Major depressive disorder, recurrent, moderate; I10 Essential (primary) hypertension; Z79.4 Long term (current) use of insulin | CPT/HCPCS: 90471; 90715; 90746; 96127; 99396 ==

== ENCOUNTER 2024-06-08 11:36 | Outpatient (REF) | payer OTHER, SELFPAY ==
[2024-06-08 11:54] LABS: MANUAL DIFF FLAG NO
[2024-06-08 12:58] LABS: Basophils Percent Auto 0.4 % (0-2); Eosinophils Absolute Auto 0.2 X10*3/uL (0.0-0.4); Eosinophils Percent Auto 3.7 % (0-4); Hematocrit 40.3 % (42.0-52.0); Hemoglobin 13.8 g/dl (14.0-18.0); Imm Gran Abs Auto 0.02 X10*3/uL (0.00-0.03); Imm Gran Pct Auto 0.4 % (0.0-0.4); Lymphocytes Absolute Auto 1.1 X10*3/uL (1.2-4.9); Lymphocytes Percent Auto 24.2 % (20-40); Mean Corpuscular HGB Conc 34.2 g/dl (31.0-36.0); Mean Corpuscular Hemoglobin 29.7 pg (27.0-33.0); Mean Corpuscular Volume 86.7 fL (80.0-98.0); Mean Platelet Volume 10.3 fL (9.4-12.4); Monocytes Absolute Auto 0.3 X10*3/uL (0.1-1.2); Monocytes Percent Auto 6.6 % (2-11); Neutrophils Absolute Auto 2.9 x10*3/uL (2.0-8.3); Neutrophils Percent Auto 64.7 % (45-73); Red Blood Count 4.65 X10*6/uL (4.60-5.80); Red Cell Distribution Width 13.7 % (11.0-16.0); White Blood Count 4.6 X10*3/uL (4.8-10.8)
[2024-06-08 13:02] LABS: Platelet Count 75 X10*3/uL (160-400)
[2024-06-08 13:28] LABS: Alanine Aminotransferase 71 U/L (0-40); Alkaline Phosphatase 198 U/L (39-117); Anion Gap 11 (12-20); Aspartate Amino Transferase 51 U/L (5-37); Bilirubin Total 1.2 mg/dL (0.0-1.0); Blood Urea Nitrogen 13 mg/dL (9-16); Calcium 8.9 mg/dL (8.4-10.2); Carbon Dioxide 23 mmol/L (22-29); Chloride 101 mmol/L (96-108); Cholesterol 181 mg/dL (<200); Estimated Glomerular Filt Rate 57; HDL Cholesterol 46 mg/dL (>40); Iron 101 mcg/dL (45-160); LDL Cholesterol Calculated 116 mg/dL (<100); Percent Iron Saturation 32 % (15-50); Potassium 4.1 mmol/L (3.3-5.1); Sodium 131 mmol/L (135-145); Total Iron Binding Capacity 315 mcg/dL (228-428); Total Protein 7.1 g/dL (6.5-8.0); Triglycerides 99 mg/dL (<150); Unsaturated Iron Binding 214 ug/dL
[2024-06-08 13:33] LABS: Vitamin D 25-OH Total 12.8 ng/mL (>30)
[2024-06-08 13:37] LABS: Glucose Fasting 644 mg/dL (60-99)
[2024-06-08 13:45] LABS: Folate 12.7 ng/mL (> or = 4.0); Vitamin B12 781 pg/mL (200-900)
[2024-06-08 13:52] LABS: Creatinine Urine 29.94 mg/dL; Microalbumin Urine < 5.0 mg/L
== END 2024-06-08 11:37 | disposition home or self-care (01) ==
LOC: HO.LAB 11:36
PROVIDERS: Absent Provider Internal Medicine Gastroenterology; PCP Internal Medicine; Visit Provider Internal Medicine
DX: D64.9 Anemia, unspecified (principal); R18.8 Other ascites; E55.9 Vitamin D deficiency, unspecified; K74.60 Unspecified cirrhosis of liver; E78.5 Hyperlipidemia, unspecified; E11.9 Type 2 diabetes mellitus without complications; E53.8 Deficiency of other specified B group vitamins
CPT/HCPCS: 36415; 80053; 80061; 82043; 82306; 82570; 82607; 82746; 83540; 85025

== ENCOUNTER 2024-06-15 13:03 | Outpatient (AMB) | payer OTHER, SELFPAY ==
--- NOTE | 2024-06-15 13:09 | MHC.OFFVIS ---
Vital Signs 06/15/24 13:11 Height 5 ft 6 in Weight 224 lb 13.944 oz BMI 36.3 BP 156/82 H Blood Pressure Location Lt brachial Position Sitting Pulse 96 Intake Visit Reasons: Cirrhosis Intake Note: Vasile present in the office as a follow up for Cirrhosis. CC: He states that he is not having any concerns at this time! Allergies lisinopril Adverse Reaction (Intermediate, Verified 06/15/24 13:12) Headache HPI HPI Cirrhosis: Details: 54-year-old male, with hx of untreated HCV, bipolar d/o, chronic knee pain, DM, HTN< and HLP who I am seeing for f/u for ascites and anemia due to cirrhosis RECAP: I had seen pt 09/2022 for melena, abdominal distention and abdominal pain denied history of alcohol abuse He had been taking ibuprofen q6 h for few years due to chronic knee pain, and is unsure if taking any PPI Patient had a diagnostic paracentesis which was negative for SBP, Admitted 08/17 with GI bleed and had EGD with banding Imaging: Abdomen pelvic CT 09/2022: cirrhosis with diffuse ascites, prominent collateral vessels, US 07/17-- neg for ascites, not needed paracentesis CT 10/2023-- cirrhosis, no liver masses SCOPES: EGD -01/2019--erosive gastritis, duodenitis and esophagitis. EGD- 09/2022--varices--banded, gastric ulcer EGD, colo --healed ulcer, varices grade II-not re banded, EGD 08/17 -- large varices, banded EGD 08/31/23-- varices--banded INTERIM: recently, had been for 25 yrs been hard, recovering from depression no problem with appetite no abdominal pain no melena, or rectal bleeding had to postpone his endoscopies denies alcohol use, no smoking HGB has been good recently EXAM: GENERAL: The patient is well developed and nontoxic. VITAL SIGNS:see workflow HEENT: Nonicteric sclerae, PERRLA, EOMI. Oropharynx clear. Moist mucous membranes. Conjunctivae appear well perfused. No thyroid mass. CHEST: Chest wall is nontender. HEART: Regular rate and rhythm without murmurs. LUNGS: Clear to auscultation bilaterally. ABDOMEN: Soft, positive bowel sounds, nontender, no organomegaly.no flank tenderness--no shifting dullness SKIN: No rash, no excessive bruising, petechiae, or purpura. NEUROLOGIC: Cranial nerves II-XII intact without motor/sensory deficit. psych--nml A/P; 1/ Cirrhosis, with ascites and variceal bleeding decompensated due to NSAID use now seems to be compensated with avoidance of nsaid and no ascites --MELD na--9 2/ Gastric ulcer--resolved--h pylori was negative in the past 3/ Variceal bleeding, s/p banding 4/ Ascites--resolved, but strangely still has varices PLAN: 1/ Ascites--resolved, avodi nsaid, lo salt diet, cont with aldactone 2/ HE--no evidence of overt disease 3/ Varices- bleeding, rept EGD -- was due 11/2023 but had to reschedule due to --to take half dose of lantus night before-- 4/ HCC screen---US now 5/ recheck labs next apptm 6/ colo screening with suprep at time if EGD 7/ if ongoing varices then maybe TIPS PENDING SALE TO [facility] Medical History Type 2 diabetes mellitus with hyperglycemia Cirrhosis Gastric ulcer Portal hypertensive gastropathy GERD (gastroesophageal reflux disease) Normocytic anemia History of substance abuse Bipolar disorder Moderate recurrent major depression HCV (hepatitis C virus) Acid reflux Right knee pain Transaminitis Left knee pain Pure hypercholesterolemia Essential hypertension Diabetes mellitus Surgical History History of abdominal paracentesis Hx of esophagogastroduodenoscopy Family History Father CVD (cardiovascular disease) Diabetes Thyroid disease Maternal Grandmother Diabetes Brother Respiratory failure Asthma Sister No problems noted. Daughter No problems noted. Family/Other Mental health disorder Mother Mental health disorder Essential hypertension Social History Household Members: Family Housing: Apartment Do you presently have visiting nurse or other home services: No Alcohol intake: never Patient Tobacco Use Status: Current everyday Tobacco user Tobacco use type: Cigarette Cigarettes Per Day: 3 Years Smoked: 30 e-Cigarette/Vaping Use: Currently Using Second Hand Smoke Exposure: No service: No Current occupational status: unemployed Current occupation: Right Handed Cognitive needs: Yes Hearing needs: No Vision needs: No Physical Exam Vital Signs: Last Vital Signs Pulse 96 06/15/24 13:11 BP 156/82 H 06/15/24 13:11 BMI result Body Mass Index 36.3 Assessment & Plan Assessment & Plan (1) Cirrhosis: Code(s): K74.60 - Unspecified cirrhosis of liver Category: Medical Qualifiers: Hepatic cirrhosis type: unspecified hepatic cirrhosis Ascites presence: with ascites Qualified Code(s): K74.60 - Unspecified cirrhosis of liver; R18.8 - Other ascites Plan: as above Orders: Orders US abdomen comp w elastography Today K74.60 - Unspecified cirrhosis of liver, R18.8 - Other ascites Coding Level of Care Code Est Pt Level 4 (25652) Diagnoses Cirrhosis of liver with ascites, unspecified hepatic cirrhosis type K74.60; R18.8 Hepatic cirrhosis type: unspecified hepatic cirrhosis Ascites presence: with ascites
[2024-06-15 13:11] VITALS: BP 156/82; PULSE 96; BMI 36.3
== END 2024-06-15 15:05 | disposition home or self-care (01) ==
PROVIDERS: PCP Internal Medicine; Visit Provider Internal Medicine Gastroenterology
DX: K74.60 Unspecified cirrhosis of liver (principal); R18.8 Other ascites
CPT/HCPCS: 99214

== ENCOUNTER → 2024-06-15 13:03 | Outpatient (BNVA) | payer OTHER, SELFPAY | PROVIDERS: PCP Internal Medicine; Visit Provider Internal Medicine Gastroenterology | DX: K74.60 Unspecified cirrhosis of liver (principal); R18.8 Other ascites | CPT/HCPCS: 99212 ==

== ENCOUNTER 2024-06-30 11:22 | Outpatient (AMB) | payer OTHER, SELFPAY ==
--- NOTE | 2024-06-30 11:32 | A.OFFVIS_ITS ---
Vital Signs 06/30/24 11:34 Height 5 ft 6 in Weight 223 lb 1.725 oz BMI 36.0 BP 138/82 Blood Pressure Location Rt brachial Position Sitting Pulse 100 Pulse Source Pulse Oximeter Intake Visit Reasons: T2DM Intake Note: Patient present today to follow up on Type 2 Diabetes Mellitus. Last Diabetic Eye exam: Due, pending appointment Last Podiatry Visit: Does not see a Composite Engineer Random Glucose:439 mg/dl 11:42 am, HgA1C: 9.8% 05/19/24 Admission Specialist Required: Yes Admission Specialist Language: Turn Down Attendant Services: Admission Specialist Offered & Declined Accompanied by: Self / Same As Patient Allergies lisinopril Adverse Reaction (Intermediate, Verified 06/30/24 11:37) Headache HPI Comments Details: This is a 54-year-old male with a past medical history of cirrhosis, hepatitis- C, opioid dependence, anemia, bipolar disorder, hyperlipidemia, hypertension and type 2 diabetes presenting for diabetic management. POC 439 today. He denies symptoms of hyperglycemia. He was diagnosed with Type II DM 30 years ago. Hemoglobin a1c 9.8% 05/19/24. Current medication regimen: Metformin extended release 500 mg daily, Lantus 65 units at bedtime and Humalog 20 units 3 times daily. He does not have the glucometer with him today, but he says he is checking his sugars. He says in the morning his blood sugars are in the 300s and 400s or sometimes over 500. Later in the day they are in the 200s and 300s. Patient says his sensor malfunctioned, and he has not been able to use his CGM. He did not go to the appointment with the DE. Compliance issues:Patient says his psychiatric issues, stress about his dog who is older and the previous of his impact his ability to manage his diabetes and medication administration. I asked if he has been administering his medications every day, and he says that he is not missing dosages despite very high blood sugar today. No alcohol. Smokes 1 ppd. Hypoglycemia symptoms: Denies symptoms or episodes since last visit. Hyperglycemia symptoms: Patient says he gets no symptoms unless BG 500+ and then he feels fatigued. Microvascular complications: Denies neuropathy, nephropathy, retinopathy Macrovascular complications: none Hypertension: treated with spironolactone 50 mg, carvedilol 3.125 mg twice daily, amlodipine 5 mg daily. His blood pressure is elevated today, but he says this is because his dog is not feeling well, and he is anxious to get home and does not have a lot of time for the appointment. Hyperlipidemia: treated with pravastatin 20 mg. ROS: Constitutional: No unexplained weight loss, fever, chills , fatigue or night sweats. Eyes: No vision changes, blurry vision, double vision Respiratory: No shortness of breath Cardiovascular: No chest pain or palpitations. No pedal edema. Neurologic: No headache, dizziness, syncope, unilateral weakness, ataxia, numbness or tingling in the extremities. Skin: No open wounds. Endocrine: No cold or heat intolerance. No polyuria or polydipsia. Physical exam: Constitutional: Alert, in no distress. Head: Normocephalic. Eyes: Pupils are equal, round and reactive to light. Extraocular muscles intact. Neck: Supple, Full range of motion. No lymphadenopathy. No palpable thyroid masses. Respiratory: Clear to auscultation. Cardiovascular: S1 S2 regular. No murmurs. Skin: Warm, dry Extremities: Warm and well perfused, no edema PFSH Medical History Type 2 diabetes mellitus with hyperglycemia Cirrhosis Gastric ulcer Portal hypertensive gastropathy GERD (gastroesophageal reflux disease) Normocytic anemia History of substance abuse Bipolar disorder Moderate recurrent major depression HCV (hepatitis C virus) Acid reflux Right knee pain Transaminitis Left knee pain Pure hypercholesterolemia Essential hypertension Diabetes mellitus Surgical History History of abdominal paracentesis Hx of esophagogastroduodenoscopy Family History Father CVD (cardiovascular disease) Diabetes Thyroid disease Maternal Grandmother Diabetes Brother Respiratory failure Asthma Sister No problems noted. Daughter No problems noted. Family/Other Mental health disorder Mother Mental health disorder Essential hypertension Social History Household Members: Family Housing: Apartment Do you presently have visiting nurse or other home services: No Alcohol intake: never Patient Tobacco Use Status: Current everyday Tobacco user Tobacco use type: Cigarette Cigarettes Per Day: 3 Years Smoked: 30 e-Cigarette/Vaping Use: Currently Using Second Hand Smoke Exposure: No service: No Current occupational status: unemployed Current occupation: Right Handed Cognitive needs: Yes Hearing needs: No Vision needs: No Physical Exam Vital Signs: Last Vital Signs Pulse 100 06/30/24 11:34 BP 138/82 06/30/24 11:34 BMI result Body Mass Index 36.0 Assessment & Plan Assessment & Plan (1) Type 2 diabetes mellitus with hyperglycemia: Code(s): E11.65 - Type 2 diabetes mellitus with hyperglycemia Category: Medical Qualifiers: Diabetes mellitus terminal carman insulin use: with intermediate use Qualified Code(s): E11.65 - Type 2 diabetes mellitus with hyperglycemia; Z79.4 - terminal operations supervisor (current) use of insulin Plan This is a 53 year old male with uncontrolled Type II DM with severe hyperglycemia at today's visit. Patient denies symptoms. Declined urine ketone test. The patient declines to be treated with insulin in the office. I advised him that leaving without treatment and monitoring we will put him at risk of diabetic coma and DKA and . He continued to decline insulin and monitoring today. Patient says he will go home and drink water and administer Humalog and recheck his sugar. He agreed to go to the emergency department if he develops symptoms including lethargy, confusion, nausea, vomiting and weakness. Increase metformin ER 500 mg 1 pill twice daily. Increase Lantus from 65 to 75 units nightly. Continue Humalog 20 units prior to meals. Patient will schedule a follow up with the perioperative educator to trouble shoot CGM. He is continuing to use a fingerstick glucometer for now. I recommended he bring this to all appointments. I have concerns about his compliance. Patient saw dietitian 03/05/2024. Reviewed proper treatment of hypoglycemia. He has glucose tablets at home. Follow up in 2 weeks for type 2 diabetes. Medications: Changed From insulin glargine (Lantus U-100 Insulin) 65 units subcut BEDTIME To insulin glargine (Lantus U-100 Insulin) 75 units (0.75 mL) subcut BEDTIME 10 mL 5RF From metformin ER 500 mg PO DAILY 90 tabs 0RF To metformin ER 500 mg PO BID 90 days 180 tabs 0RF Patient Instructions: Humalog: continue 20 units before meals Lantus: Increase to 75 units nightly Metformin: Increase to 1 pill twice daily. If it makes your stomach upset, decrease to 1 pill daily. Humalog: continuar con 20 unidades antes de las comidas. Lantus: aumentar a 75 unidades por noche Metformina: aumentar a 1 pastilla dos veces al d?a. Si le produce malestar estomacal, reduzca a 1 pastilla al d?a. Coding Level of Care Code Est Pt Level 4 (50536) Complex EM visit Add On G2211 Diagnoses Type 2 diabetes mellitus with hyperglycemia, with long-term current use of insulin E11.65; Z79.4 Diabetes mellitus intermediate insulin use: with intermediate use
[2024-06-30 11:34] VITALS: BP 138/82; PULSE 100; BMI 36.0
[2024-06-30 11:47] LABS: Glucose, Whole Blood 439 mg/dL (60-115)
== END 2024-06-30 12:15 | disposition home or self-care (01) ==
PROVIDERS: PCP Internal Medicine; Visit Provider Physician Assistant Medical
DX: E11.65 Type 2 diabetes mellitus with hyperglycemia (principal); Z79.4 Long term (current) use of insulin

== ENCOUNTER → 2024-06-30 11:22 | Outpatient (BNVA) | payer OTHER, SELFPAY | PROVIDERS: PCP Internal Medicine; Visit Provider Physician Assistant Medical | DX: E11.65 Type 2 diabetes mellitus with hyperglycemia (principal); Z79.4 Long term (current) use of insulin | CPT/HCPCS: 82947; 99212 ==

== ENCOUNTER 2024-07-08 08:14 | Outpatient (REF) | payer OTHER, SELFPAY | END 2024-07-08 08:15 | disposition home or self-care (01) | LOC: HO.US 08:14 | PROVIDERS: PCP Internal Medicine; Visit Provider Internal Medicine Gastroenterology | DX: Z13.89 Encounter for screening for other disorder (principal) ==

== ENCOUNTER 2024-08-18 08:01 | Outpatient (AMB) | payer OTHER, SELFPAY ==
--- NOTE | 2024-08-18 08:01 | A.OFFVIS_ITS ---
Vital Signs 08/18/24 08:02 Height 5 ft 6 in Weight 229 lb 8.019 oz BMI 37.0 BP 142/64 H Blood Pressure Location Lt brachial Position Sitting Pulse 97 Pulse Source Pulse Oximeter Pulse Oximetry (%) 98 Oxygen Delivery Method Room Air Intake Visit Reasons: Type II diabetes Intake Note: Patient present today for Type 2 Diabetes Mellitus Last Diabetic eye exam: Over 2 years ago Last Podiatry Visit: Doesn't have one Random Glucose: 374 mg/dl HgA1C: 11.3% Erector Operator Required: No Accompanied by: Self / Same As Patient Allergies lisinopril Adverse Reaction (Intermediate, Verified 06/30/24 11:37) Headache Medication List - Last Reconciled 08/18/24 by JORDAN Florentino acetone (urine) test (Ketone Care strips) As directed. amlodipine 5 mg PO DAILY 90 days blood sugar diagnostic ([employer] Verio test strips) Use as directed to check blood glucose five times daily. blood-glucose meter ([employer] Verio Flex Meter) Use as directed to check blood glucose five times daily for type II diabetes. blood-glucose meter,continuous (FreeStyle Nyla 3 [place]) as directed blood-glucose sensor (FreeStyle Nyla 3 Sensor device) apply new sensor every 14 days as directed buprenorphine-naloxone 8-2 mg 8 mg sublingual TID carvedilol 3.125 mg See Protocol PO BID 90 days cholecalciferol (vitamin D3) 50 mcg PO DAILY 90 days clonazepam 0.5 mg PO DAILY PRN clotrimazole 1% 1 appl topical BID 4 weeks furosemide 20 mg See Protocol PO DAILY 90 days glucose (Dex4 Glucose) 16 grams (4 x 4 gram) PO Q15M PRN [handheld shower As directed] hydrocortisone 1% topical hydrocortisone 1% (Anti-Itch (hydrocortisone)) 1 appl topical TID PRN 2 weeks ibuprofen 800 mg PO Q8H PRN 30 days insulin lispro (Humalog U-100 Insulin) 20 units subcut TID insulin syringe-needle U-100 (BD Insulin Syringe Ultra-Fine) As directed to administer Humalog three times daily insulin syringe-needle U-100 (BD Insulin Syringe Ultra-Fine) As directed to administer Lantus insulin once daily. lancets ([employer] Delica Plus Lancet) Use as directed to check blood glucose fives times daily. lidocaine 5% 1 patch topical DAILY 30 days metformin ER 500 mg PO BID 90 days [nonslip shower mat As directed] pravastatin 20 mg PO BEDTIME 90 days prazosin 2 mg PO BEDTIME quetiapine 50 mg PO BID quetiapine mg PO Shower Chair As directed spironolactone 50 mg See Protocol PO DAILY 90 days Toujeo Max U-300 SoloStar (insulin glargine U-300 conc) 85 units (0.2833 mL) subcut BEDTIME NS HPI Comments Details: This is a 54-year-old male with a past medical history of cirrhosis, hepatitis- C, opioid dependence, anemia, bipolar disorder, hyperlipidemia, hypertension and type 2 diabetes presenting for diabetic management. POC 374 today. He denies symptoms of hyperglycemia. He was diagnosed with Type II DM 30 years ago. Hemoglobin a1c 9.8% 05/19/24. Today it is 11.3% Current medication regimen: Metformin extended release 500 mg BID, Lantus 75 units at bedtime and Humalog 20 units 3 times daily. Patient says he is taking all of this medications. He brought the nyla 3 reader and sensors with him today for placement. He does not have the glucometer with him today, but he says he is checking his sugars. He says in the morning his blood sugars are in the 250-360. He checks again at 11:00, and it is in the high 300s. In the evening he reports blood sugars are around 250. His highest reading in the past couple of weeks was 380 per patient. He's trying to talk to his daughters about cooking healthier meals. He's trying to eat more salads. Compliance issues:Patient says his psychiatric issues, stress about his dog who is older and the previous of his impact his ability to manage his d iabetes and medication administration. No alcohol. Smokes 1 ppd. Hypoglycemia symptoms: Denies symptoms or episodes since last visit. Hyperglycemia symptoms: Patient says he gets no symptoms unless BG 500+ and then he feels fatigued and confused. ROS: Constitutional: No unexplained weight loss, fever, chills , fatigue or night sweats. Eyes: No vision changes, blurry vision, double vision Respiratory: No shortness of breath Cardiovascular: No chest pain or palpitations. No pedal edema. Neurologic: No headache, dizziness, syncope, unilateral weakness, ataxia, numbness or tingling in the extremities. Skin: No open wounds. Endocrine: No cold or heat intolerance. No polyuria or polydipsia. Physical exam: Constitutional: Alert, in no distress. Head: Normocephalic. Eyes: Pupils are equal, round and reactive to light. Extraocular muscles intact. Neck: Supple, Full range of motion. No lymphadenopathy. No palpable thyroid masses. Respiratory: Clear to auscultation. Cardiovascular: S1 S2 regular. No murmurs. Skin: Warm, dry Extremities: Warm and well perfused, no edema PFSH Medical History Type 2 diabetes mellitus with hyperglycemia Cirrhosis Gastric ulcer Portal hypertensive gastropathy GERD (gastroesophageal reflux disease) Normocytic anemia History of substance abuse Bipolar disorder Moderate recurrent major depression HCV (hepatitis C virus) Acid reflux Right knee pain Transaminitis Left knee pain Pure hypercholesterolemia Essential hypertension Diabetes mellitus Surgical History History of abdominal paracentesis Hx of esophagogastroduodenoscopy Family History Father CVD (cardiovascular disease) Diabetes Thyroid disease Maternal Grandmother Diabetes Brother Respiratory failure Asthma Sister No problems noted. Daughter No problems noted. Family/Other Mental health disorder Mother Mental health disorder Essential hypertension Social History Household Members: Family Housing: Apartment Do you presently have visiting nurse or other home services: No Alcohol intake: never Patient Tobacco Use Status: Current everyday Tobacco user Tobacco use type: Cigarette Cigarettes Per Day: 3 Years Smoked: 30 e-Cigarette/Vaping Use: Currently Using Second Hand Smoke Exposure: No service: No Current occupational status: unemployed Current occupation: Right Handed Cognitive needs: Yes Hearing needs: No Vision needs: No Physical Exam Vital Signs: Last Vital Signs Pulse 97 08/18/24 08:02 BP 142/64 H 08/18/24 08:02 Pulse Ox 98 08/18/24 08:02 Oxygen Delivery Method Room Air 08/18/24 08:02 BMI result Body Mass Index 37.0 Results AMB Hemoglobin A1c AMB Hemoglobin A1c 11.3 % Last Edit by ENIO Espinosa on 08/18/24 08:25 Results Reviewed Results Reviewed: Laboratory Last Values Glucose (Clinic) 374 mg/dL (60-115) H* 08/18/24 08:09 Laboratory Tests 06/08/24 06/08/24 11:52 11:53 Creatinine 1.31 Estimated GFR 57 Triglycerides 99 Cholesterol 181 LDL Cholesterol, Calc 116 H HDL Cholesterol 46 Vitamin B12 781 Urine Creatinine 29.94 Urine Microalbumin < 5.0 Microalb/Creat Ratio TNP Assessment & Plan Assessment & Plan (1) Type 2 diabetes mellitus with hyperglycemia: Code(s): E11.65 - Type 2 diabetes mellitus with hyperglycemia Category: Medical Qualifiers: Diabetes mellitus half-way insulin use: with terminal block assembler use Qualified Code(s): E11.65 - Type 2 diabetes mellitus with hyperglycemia; Z79.4 - terminal block assembler (current) use of insulin Plan In summary this is a 54-year-old male with uncontrolled type 2 diabetes and cirrhosis of the liver. Discussed pathophysiology of Type II Diabetes Mellitus with the patient in detail.? I explained the terminal block assembler risks and complications associated with uncontrolled diabetes including nephropathy, neuropathy, peripheral vascular disease, retinopathy, increased risk of heart disease and stroke.? Diabetic diet reviewed. He met with a dietitian in February of 2024. He is trying to make changes to his diet. I educated him about Nyla 3 use and placed the sensor on him today. Vitamin-C warning discussed. He left with the reader in warm up. Patient asked to bring CGM with him to the follow up appointment in 2 weeks so we can review the data. Continue metformin ER 500 mg 1 pill twice daily. Change Lantus 75 units nightly to Toujeo 85 units nightly. Patient says he has pen needles at home. Toujeo is medically necessary in this patient who has experienced continued hyperglycemia despite titrating Lantus and due to the higher dosage of insulin required to treat his diabetes. Continue Humalog 20 units 15 minutes prior to meals 3 times daily. Referred anew to residential carpenter. Reviewed proper treatment of hypoglycemia and hyperglycemia. Written instructions provided to the patient, and he said he has glucose tablets at home. Patient was also prescribed ketone care strips and educated about use and went to go to the ER. Written instructions were given to him. He has glucose tablets at home. Follow up in 2 weeks for type 2 diabetes. Orders: Orders AMB Hemoglobin A1c Today E11.65 - Type 2 diabetes mellitus with hyperglycemia, Z13.9 - Encounter for screening, unspecified, Z79.4 - terminal block assembler (current) use of insulin Referrals Diabetes Education Referral E11.65 - Type 2 diabetes mellitus with hyperglycemia Medications: New Toujeo Max U-300 SoloStar (insulin glargine U-300 conc) Replaces Lantus 75 units at bedtime. 85 units (0.2833 mL) subcut BEDTIME 9 mL 5RF NS acetone (urine) test (Ketone Care strips) As directed. 100 ea 3RF E11.65 - Type 2 diabetes mellitus with hyperglycemia, Z79.4 - terminal block assembler (current) use of insulin Discontinued pen needle, diabetic Discontinued Reason: Doctor's Order Use 1 needle once a day 100 ea 6RF diabetes mellitus E11.9 - Type 2 diabetes mellitus without complications pen needle, diabetic (BD Josie 2nd Gen Pen Needle) Discontinued Reason: Doctor's Order As directed to administer insulin four times daily 200 ea 11RF insulin glargine (Lantus U-100 Insulin) Discontinued Reason: Doctor's Order 75 units (0.75 mL) subcut BEDTIME 10 mL 5RF Patient Instructions: Current medication regimen: Metformin extended release 500 mg BID Continue Humalog 20 three times daily before meals. Stop Lantus 75 units and start Toujeo 85 units at bedtime. If you experience low blood sugar, treat this by eating a chewable fruit candy like skittles or jelly beans (about 8 pieces), 4 ounces (1/2 cup) of fruit juice (not diet), 1 tablespoon of honey or 4 glucose tablets. If your blood sugar is under 55, take double the amount of one of the above. Recheck your blood sugar in 15 minutes. Diabetic ketoacidosis (DKA) A serious condition that can lead to diabetic coma (passing out for a long time) or even When your cells don't get the glucose they need for energy, your body begins to burn fat for energy, which produces ketones. Ketones are chemicals that the body creates when it breaks down fat to use for energy. The body does this when it doesn?t have enough insulin to use glucose, the body?s normal source of energy. When ketones build up in the blood, they make it more acidic. They are a warning sign that your diabetes is out of control or that you are getting sick. Symptoms of Diabetic Ketoacidosis (DKA) DKA usually develops slowly. But when vomiting occurs, this life-threatening condition can develop in a few hours. Early symptoms include the following: ? Thirst or a very dry mouth ? Frequent urination ? High blood glucose (blood sugar) levels ? High levels of ketones in the urine Then, other symptoms appear: ? Constantly feeling tired ? Dry or flushed skin ? Nausea, vomiting, or abdominal pain ? (Vomiting can be caused by many illnesses, not just ketoacidosis. If vomiting continues for more than 2 hours, contact your health care provider.) ? Difficulty breathing ? Fruity odor on breath ? A hard time paying attention, or confusion When should you test for ketones? It is advisable to check for ketones under the following conditions when: Your blood glucose is higher than 250mg/dl. Feeling nauseated, throwing up, or have pains in your abdominal region. Have a cold or flu. Have general body fatigue. Feel thirsty or have a very dry mouth. Have flushed skin. Have a fruity breath or a hard time breathing. You feel confused or in fog. Negative, trace or light ketones: hydrate, bring sugars down with insulin You should go to the ER if you have moderate or large ketones. ?Cu?ndo deber?a realizar la prueba de cetonas? Es recomendable comprobar la presencia de cetonas en las siguientes condiciones cuando: Vigil nivel de glucosa en suzanne es superior a 250 mg/dl. Sensaci?n de n?useas, v?mitos o sam en la jp?n abdominal. Tiene un resfriado o gripe. Tiene fatiga corporal general. Sentir sed o tener la boca muy seca. Tener la piel enrojecida. Tiene un aliento afrutado o le kayla respirar. Te sientes confundido o confundido. Cetonas negativas, trazas o ligeras: hidratar, reducir los az?cares con insulina Debes acudir a urgencias si tienes cetonas moderadas o grandes. Coding Level of Care Code Est Pt Level 5 (78193) Complex EM visit Add On G2211 Diagnoses Type 2 diabetes mellitus with hyperglycemia, with long-term current use of insulin E11.65; Z79.4 Diabetes mellitus terminal block assembler insulin use: with terminal block assembler use Time Spent (min) 63 Comment Chart review, direct patient care and Education, completing documentation
[2024-08-18 08:02] VITALS: BP 142/64; PULSE 97; O2SAT 98; BMI 37.0
[2024-08-18 08:12] LABS: Glucose, Whole Blood 374 mg/dL (60-115)
== END 2024-08-18 08:50 | disposition home or self-care (01) ==
PROVIDERS: PCP Internal Medicine; Visit Provider Physician Assistant Medical
DX: Z13.9 Encounter for screening, unspecified (principal); E11.65 Type 2 diabetes mellitus with hyperglycemia; Z79.4 Long term (current) use of insulin

== ENCOUNTER → 2024-08-18 08:01 | Outpatient (BNVA) | payer OTHER, SELFPAY | PROVIDERS: PCP Internal Medicine; Visit Provider Physician Assistant Medical | DX: E11.65 Type 2 diabetes mellitus with hyperglycemia (principal); Z79.4 Long term (current) use of insulin; Z79.84 Long term (current) use of oral hypoglycemic drugs | CPT/HCPCS: 82947; 83036; 99212 ==

== ENCOUNTER 2024-09-04 09:06 | Outpatient (AMB) | payer OTHER, SELFPAY ==
--- NOTE | 2024-09-04 09:20 | A.OFFVIS_ITS ---
Vital Signs 09/04/24 09:23 Height 5 ft 6 in Weight 229 lb 8.019 oz BMI 37.0 BP 144/82 H Blood Pressure Location Rt brachial Position Sitting Pulse 92 Pulse Source Pulse Oximeter Pulse Oximetry (%) 96 Oxygen Delivery Method Room Air Intake Visit Reasons: Type II diabetes Intake Note: Patient present today to follow up on Type 2 Diabetes Mellitus. Patient c/o of using Triesba 85 units and reports a headache that lasted 2 days, went back to Lantus 77 units with no symptoms. Last Diabetic Eye exam: Due, pending appointment not until 2025 Last Podiatry Visit: Does not see a Residency Program Coordinator Random Glucose: 222 mg/dl HgA1C: 11.3% 08/18/2024 Investigator Internal Affairs Required: Yes Investigator Internal Affairs Language: Senior Project Architect Services: Investigator Internal Affairs Offered & Declined Accompanied by: Self / Same As Patient Allergies lisinopril Adverse Reaction (Intermediate, Verified 09/04/24 09:24) Headache HPI Comments Details: This is a 54-year-old male with a past medical history of cirrhosis, hepatitis- C, opioid dependence, anemia, bipolar disorder, hyperlipidemia, hypertension and type 2 diabetes presenting for diabetic management. POC 222 today. He was diagnosed with Type II DM 30 years ago. Hemoglobin a1c 9.8% 05/19/24. 08/18/24 11.3%. Current medication regimen: Metformin extended release 500 mg BID, Lantus 75 units at bedtime and Humalog 20 units 3 times daily. Sometimes he takes 50 units of Humalog. He also tried Toujeo 85 units, but he says the medication made him feel tired and gave him headaches so he reverted to Lantus. Patient says he is never missing doses despite his CGM download today. I asked where he is injecting insulin, and he says that he is injecting all insulin on the anterolateral left upper arm. Reviewed Nyla 3 download CGM active 89% Average glucose 311 G [place] 10.7% Glucose variability 24.5% Greater than 250 mg/dL 77% 181-250 mg/dL 16% Target range 7% 0% hypoglycemia Patient has hyperglycemia throughout the 24 hour period. He's trying to talk to his daughters about cooking healthier meals. He's trying to eat more salads. Compliance issues:Patient says his psychiatric issues, stress about his dog who is older and the previous of his impact his ability to manage his diabetes and medication administration. No alcohol. Smokes 1 ppd. Hypoglycemia symptoms: Denies symptoms or episodes since last visit. Hyperglycemia symptoms: Patient says he gets no symptoms unless BG 500+ and then he feels fatigued and confused. ROS: Constitutional: No unexplained weight loss, fever, chills , fatigue or night sweats. Eyes: No vision changes, blurry vision, double vision Respiratory: No shortness of breath Cardiovascular: No chest pain or palpitations. No pedal edema. Neurologic: No headache, dizziness, syncope, unilateral weakness, ataxia, numbness or tingling in the extremities. Skin: No open wounds. Endocrine: No cold or heat intolerance. No polyuria or polydipsia. Physical exam: Constitutional: Alert, in no distress. Head: Normocephalic. Eyes: Pupils are equal, round and reactive to light. Extraocular muscles intact. Neck: Supple, Full range of motion. No lymphadenopathy. No palpable thyroid masses. Respiratory: Clear to auscultation. Cardiovascular: S1 S2 regular. No murmurs. Skin: Warm, dry Extremities: Warm and well perfused, no edema PFSH Medical History Type 2 diabetes mellitus with hyperglycemia Cirrhosis Gastric ulcer Portal hypertensive gastropathy GERD (gastroesophageal reflux disease) Normocytic anemia History of substance abuse Bipolar disorder Moderate recurrent major depression HCV (hepatitis C virus) Acid reflux Right knee pain Transaminitis Left knee pain Pure hypercholesterolemia Essential hypertension Diabetes mellitus Surgical History History of abdominal paracentesis Hx of esophagogastroduodenoscopy Family History Father CVD (cardiovascular disease) Diabetes Thyroid disease Maternal Grandmother Diabetes Brother Respiratory failure Asthma Sister No problems noted. Daughter No problems noted. Family/Other Mental health disorder Mother Mental health disorder Essential hypertension Social History Household Members: Family Housing: Apartment Do you presently have visiting nurse or other home services: No Alcohol intake: never Patient Tobacco Use Status: Current everyday Tobacco user Tobacco use type: Cigarette Cigarettes Per Day: 3 Years Smoked: 30 e-Cigarette/Vaping Use: Currently Using Second Hand Smoke Exposure: No service: No Current occupational status: unemployed Current occupation: Right Handed Cognitive needs: Yes Hearing needs: No Vision needs: No Physical Exam Vital Signs: Last Vital Signs Pulse 92 09/04/24 09:23 BP 144/82 H 09/04/24 09:23 Pulse Ox 96 09/04/24 09:23 Oxygen Delivery Method Room Air 09/04/24 09:23 BMI result Body Mass Index 37.0 Office Procedures Glucose Monitoring Details Details: See [facility] [id number] - Glucose monitoring, continuous-physician I&R Procedure code (CPT) selection complete Results Reviewed Results Reviewed: Laboratory Last Values Glucose (Clinic) 222 mg/dL (60-115) H 09/04/24 09:31 Laboratory Tests 06/08/24 06/08/24 11:52 11:53 Creatinine 1.31 Estimated GFR 57 Triglycerides 99 Cholesterol 181 LDL Cholesterol, Calc 116 H HDL Cholesterol 46 Vitamin B12 781 Urine Creatinine 29.94 Urine Microalbumin < 5.0 Microalb/Creat Ratio TNP Assessment & Plan Assessment & Plan (1) Type 2 diabetes mellitus with hyperglycemia: Code(s): E11.65 - Type 2 diabetes mellitus with hyperglycemia Category: Medical Qualifiers: Diabetes mellitus nursing home insulin use: with nursing home use Qualified Code(s): E11.65 - Type 2 diabetes mellitus with hyperglycemia; Z79.4 - termite technician (current) use of insulin Plan In summary this is a 54-year-old male with uncontrolled type 2 diabetes and cirrhosis of the liver. Discussed pathophysiology of Type II Diabetes Mellitus with the patient in detail.? I explained the exterminator helper risks and complications associated with uncontrolled diabetes including nephropathy, neuropathy, peripheral vascular disease, retinopathy, increased risk of heart disease and stroke.? Diabetic diet reviewed. He met with a dietitian in February of 2024. He is trying to make changes to his diet. Patient is using Nyla 3 now. Continue metformin ER 500 mg 1 pill twice daily. I reviewed the CGM data with him. Patient says he is completely compliant with his medications. I am concerned he may be noncompliant, but he has also been injecting all of the insulin into the anterolateral left upper arm which is most likely impairing absorption of the medication. He is going to see the firer electric locomotive next week to review diabetes and proper administration of medications. Patient says he will try injecting insulin subcu in the abdomen. Avoid periumbilical area. He does not want to try Tresiba. He discontinued Toujeo due to side effect reported. Change Lantus dosing to 44 units twice a day. Continue Humalog 20 units 15 minutes before meals. Reviewed proper treatment of hypoglycemia and hyperglycemia. Written instructions provided to the patient, and he said he has glucose tablets at home. He also has ketone care strips. Follow up in 2 weeks for type 2 diabetes. Orders: Orders AMB Glucose Monitoring Today E11.9 - Type 2 diabetes mellitus without complications Medications: Discontinued Toujeo Max U-300 SoloStar (insulin glargine U-300 conc) Replaces Lantus 75 units at bedtime. Discontinued Reason: Doctor's Order 85 units (0.2833 mL) subcut BEDTIME 9 mL 5RF NS Coding Level of Care Code Est Pt Level 4 (60634) Diagnoses Type 2 diabetes mellitus with hyperglycemia, with long-term current use of insulin E11.65; Z79.4 Diabetes mellitus nursing home insulin use: with exterminator helper use CPT Codes Details - CPT: 77016 - Glucose monitoring, continuous-physician I&R ([id number])
[2024-09-04 09:23] VITALS: BP 144/82; PULSE 92; O2SAT 96; BMI 37.0
[2024-09-04 09:35] LABS: Glucose, Whole Blood 222 mg/dL (60-115)
== END 2024-09-04 10:08 | disposition home or self-care (01) ==
LOC: HO.ENCR 09:07
PROVIDERS: PCP Internal Medicine; Visit Provider Physician Assistant Medical
DX: E11.65 Type 2 diabetes mellitus with hyperglycemia (principal); Z79.4 Long term (current) use of insulin

== ENCOUNTER → 2024-09-04 09:06 | Outpatient (BNVA) | payer OTHER, SELFPAY | PROVIDERS: PCP Internal Medicine; Visit Provider Physician Assistant Medical | DX: E11.65 Type 2 diabetes mellitus with hyperglycemia (principal); F17.210 Nicotine dependence, cigarettes, uncomplicated; Z79.4 Long term (current) use of insulin; Z79.84 Long term (current) use of oral hypoglycemic drugs; Z79.899 Other long term (current) drug therapy | CPT/HCPCS: 82947; 99212 ==

== ENCOUNTER 2024-09-07 09:37 | Outpatient (AMB) | payer OTHER, SELFPAY ==
--- NOTE | 2024-09-07 10:19 | A.OFFVIS_ITS ---
Intake Intake Visit Reasons: Type 2 diabetes mellitus with hyperglycemia Carbon Brush Maker Required: Yes Carbon Brush Maker Language: Cap Lining Machine Operator Name: [place] [facility] [place]ompanied by: Self / Same As Patient Allergies lisinopril Adverse Reaction (Intermediate, Verified 09/04/24 09:24) Headache HPI Comprehensive Diabetes Asmnt Most Recent Diabetes Results: Microalb/Creat Ratio TNP 06/08/24 Cholesterol 181 mg/dL (<200) 06/08/24 HDL Cholesterol 46 mg/dL (>40) 06/08/24 Triglycerides 99 mg/dL (<150) 06/08/24 Creatinine 1.31 mg/dL (0.5-1.4) 06/08/24 Blood Urea Nitrogen 13 mg/dL (9-16) 06/08/24 Sodium 131 mmol/L (135-145) L 06/08/24 Potassium 4.1 mmol/L (3.3-5.1) 06/08/24 Chloride 101 mmol/L (96-108) 06/08/24 Carbon Dioxide 23 mmol/L (22-29) 06/08/24 Calcium 8.9 mg/dL (8.4-10.2) 06/08/24 AST 51 U/L (5-37) H 06/08/24 ALT 71 U/L (0-40) H 06/08/24 Total Protein 7.1 g/dL (6.5-8.0) 06/08/24 Albumin 4.0 g/dL (3.5-5.0) 06/08/24 PFSH Medical History Type 2 diabetes mellitus with hyperglycemia Cirrhosis Gastric ulcer Portal hypertensive gastropathy GERD (gastroesophageal reflux disease) Normocytic anemia History of substance abuse Bipolar disorder Moderate recurrent major depression HCV (hepatitis C virus) Acid reflux Right knee pain Transaminitis Left knee pain Pure hypercholesterolemia Essential hypertension Diabetes mellitus Surgical History History of abdominal paracentesis Hx of esophagogastroduodenoscopy Family History Father CVD (cardiovascular disease) Diabetes Thyroid disease Maternal Grandmother Diabetes Brother Respiratory failure Asthma Sister No problems noted. Daughter No problems noted. Family/Other Mental health disorder Mother Mental health disorder Essential hypertension Social History Household Members: Family Housing: Apartment Do you presently have visiting nurse or other home services: No Alcohol intake: never Patient Tobacco Use Status: Current everyday Tobacco user Tobacco use type: Cigarette Cigarettes Per Day: 3 Years Smoked: 30 e-Cigarette/Vaping Use: Currently Using Second Hand Smoke Exposure: No service: No Current occupational status: unemployed Current occupation: Right Handed Cognitive needs: Yes Hearing needs: No Vision needs: No Assessment & Plan Assessment & Plan (1) Type 2 diabetes mellitus with hyperglycemia: Code(s): E11.65 - Type 2 diabetes mellitus with hyperglycemia Qualifiers: Diabetes mellitus prison insulin use: with prison use Qualified Code(s): E11.65 - Type 2 diabetes mellitus with hyperglycemia; Z79.4 - penitentiary (current) use of insulin Plan: Diabetes self-management education and support participation record Assessment/scale: 1= needs instructed? 2= needs review? 3= c omprehend keep point? 4= demonstrates understanding/ competent? NC= Not Covered Topics Learning Objective: Initial visit Initial or post srvc Initial or post srvc Initial or post srvc Initial or post srvc Initial or post srvc Post srvc Comments Pre Edu-assessment/plan Outcome or reassess Outcome or reassess Outcome or reassess Outcome or reassess Outcome or reassess Outcome or reassess Diabetes pathophysiology 1 Healthy eating 1 Being active 1 Taking medication 1 Monitoring glucose 1 Acute complication 1 Chronic complicated Lifestyle and healthy coping Diabetes distress in support ?Diabetes pathophysiology: ?Defined diabetes med identify own type of diabetes; list 3 options for treating diabetes Healthy eating: ?Described effect of type, amount and ?timing of food on blood glucose; list 3 methods for planning meal Being active: ?State effect of exercise on blood glucose level Taking medication: ?State effect of diabetes medications on diabetes; name diabetes medications taking, action and side effects Monitoring glucose: ?Identify recommended blood glucose targets and personal target Acute complication: ?List symptoms and treatment of hyper and hypoglycemia, DKA, sick day guidelines and guidelines for severe weather or situations of crisis and diabetes supply manage Chronic complication: ?To find the relationship of blood glucose levels to long- term complications of diabetes in screening and preventative measures Lifestyle and healthy coping: ?Described lifestyle and healthy coping strategies to rule out diabetes self-management Diabetes to stress and support: ?Recognize Diabetes to stress and be able to identified support options Learning objectives: Assess patient education level/literacy/barriers, patient's last A1c on 08/18/2024 11.3% Patient uses freestyle Nyla 3 sensor Average glucose for the past 14 days 311 mg/dL Above target 93% At target 7% Below target 0% Patient stated that he has been waiting for the last 4 years to have knee replacement surgery, he can not have surgery until he brings down A1c. Patient questions/concerns, instructed patient if he has concerns or questions about setting up Nyla 3 reader to contact health promotion educator The patient was provided with verbal and written education on the following topics as outlined below. The patient met all learning objectives and was able to verbalize understanding and provide teach back of education topics discussed . The patient was provided with the opportunity to ask questions and all questions were answered. Topics covered in today?s session included: Medications (If applicable) * Name of medication? * Dosing/administration instructions? * Mechanism of action? * Potential side effects? * Potential adverse reaction and appropriate treatment? * Review onset, peak, duration Assess for concerns re: insurance coverage, cost, barriers to compliance Insulin/Injectables (If applicable) * Storage/care of insulin?? * Injection sites? * Site rotation? * Onset, peak, duration * Drawing up insulin? * Injecting insulin/other injectables? * Sharps disposal Continuous blood glucose monitoring (if applicable) Hypoglycemia and Hyperglycemia * Signs and symptoms? * Causes?? * Treatment? * Preventing hypoglycemia? * When to seek medical attention Target Goals: * Blood glucose targets and how you feel when your blood glucose is in and out of your target ranges. * Monitoring and knowing your A1C. * What can make blood glucose go up and down and preventing high and low blood glucose. * Review of blood sugar targets in expected goal range and outside of expected goal range. * Problem solving and preventing hyper/hypoglycemia. * Sick day management of diabetes. * Using blood sugar results in decision making process in managing diabetes. ?Patient was receptive to information provided and participated in the discussion. Asked?appropriate questions and demonstrated good understanding of the topics discussed.? ? Educational Materials: The patient was provided with the following written educational materials: Target Goal handout Smart Goal:? Patient will follow rotation site injection map given at today's visit between now and next time he sees endocrine physician's manufacturing assistant Patient Response to instructions: Comprehension of Instructions: fair Readiness to make changes:? Contemplation How confident they feel about making changes:Poor Portions of this note were created using voice recognition software, please excuse any words or phrases that may have been misinterpreted. Patient Instructions: Rotar los lugares de inyecci?n seg?n las indicaciones. Y realizar de 15 a 20 minutos de actividad f?citlali despu?s de las comidas para mejorar los niveles de glucosa. Realizar seguimiento con un educador en diabetes seg?n sea necesario Coding Level of Care Code Est Pt Level 1 (51808) Diagnoses Type 2 diabetes mellitus with hyperglycemia, with long-term current use of insulin E11.65; Z79.4 Diabetes mellitus prison insulin use: with prison use
== END 2024-09-07 10:38 | disposition home or self-care (01) ==
LOC: HO.ENCR 09:38
PROVIDERS: PCP Internal Medicine; Visit Provider Registered Nurse Diabetes Educator
DX: E11.65 Type 2 diabetes mellitus with hyperglycemia (principal); Z79.4 Long term (current) use of insulin

== ENCOUNTER → 2024-09-07 09:37 | Outpatient (BNVA) | payer OTHER, SELFPAY | PROVIDERS: PCP Internal Medicine; Visit Provider Registered Nurse Diabetes Educator | DX: E11.65 Type 2 diabetes mellitus with hyperglycemia (principal); Z79.4 Long term (current) use of insulin | CPT/HCPCS: 99211 ==

== ENCOUNTER 2024-09-18 09:46 | Outpatient (AMB) | payer OTHER, SELFPAY ==
--- NOTE | 2024-09-18 09:54 | MHC.OFFVIS ---
Vital Signs 09/18/24 09:56 Height 5 ft 6 in Weight 227 lb 8.273 oz BMI 36.7 BP 130/78 Blood Pressure Location Rt brachial Position Sitting Pulse 91 Pulse Source Pulse Oximeter Pulse Oximetry (%) 99 Oxygen Delivery Method Room Air Intake Visit Reasons: Type II diabetes Intake Note: Patient present today to follow up on Type 2 Diabetes Mellitus. Last Diabetic Eye exam: Due, appointment pending Last Podiatry Visit: Does not see a Telecom Engineer Random Glucose: 223 mg/dl HgA1C: 11.3% 08/18/2024 Postal Service Sectional Center Manager Required: Yes Postal Service Sectional Center Manager Language: Taxonomist Services: Postal Service Sectional Center Manager Offered & Declined Information Interpreted: non-clinical & clinical Accompanied by: Self / Same As Patient Allergies lisinopril Adverse Reaction (Intermediate, Verified 09/18/24 09:57) Headache HPI Comments Details: This is a 54-year-old male with a past medical history of cirrhosis, hepatitis-C, opioid dependence, anemia, bipolar disorder, hyperlipidemia, hypertension and type 2 diabetes presenting for diabetic management. He was diagnosed with Type II DM 30 years ago. 08/18/24 11.3%. Current medication regimen: Metformin extended release 500 mg BID, Lantus 40 in the morning and 45 units at bedtime and Humalog 15-20 units 3 times daily. Patient is using 15 units if his blood sugar is in the low 200s because if he uses 20 units he feels symptoms of low blood sugar. Previous medications: Toujeo caused headaches and was discontinued. He met with the websphere message broker developer, and he is injecting insulin correctly now. The CGM download today is not from the past 2 weeks but from the appointment 09/08/27. There is no new data today. He does not have a glucometer with him today. He has been having problems with the Nyla 3 sensors. They are only working for the 1st week. Patient says they are also not giving accurate glucose readings. He is using a fingerstick glucometer. Patient says his blood sugars in the morning are now 200-250. He only hears the alert for high blood sugar after he eats. He's trying to talk to his daughters about cooking healthier meals. He's trying to eat more salads. Compliance issues:Patient says his psychiatric issues, stress about his dog who is older and the previous of his impact his ability to manage his diabetes and medication administration. No alcohol. Smokes 1 ppd. Hypoglycemia symptoms: Denies symptoms or episodes since last visit. Hyperglycemia symptoms: Patient says he gets no symptoms unless BG 500+ and then he feels fatigued and confused. ROS: Constitutional: No unexplained weight loss, fever, chills , fatigue or night sweats. Eyes: No vision changes, blurry vision, double vision Respiratory: No shortness of breath Cardiovascular: No chest pain or palpitations. No pedal edema. Neurologic: No headache, dizziness, syncope, unilateral weakness, ataxia, numbness or tingling in the extremities. Skin: No open wounds. Endocrine: No cold or heat intolerance. No polyuria or polydipsia. Physical exam: Constitutional: Alert, in no distress. Head: Normocephalic. Eyes: Pupils are equal, round and reactive to light. Extraocular muscles intact. Neck: Supple, Full range of motion. No lymphadenopathy. No palpable thyroid masses. Respiratory: Clear to auscultation. Cardiovascular: S1 S2 regular. No murmurs. Skin: Warm, dry Extremities: Warm and well perfused, no edema PFSH Medical History Type 2 diabetes mellitus with hyperglycemia Cirrhosis Gastric ulcer Portal hypertensive gastropathy GERD (gastroesophageal reflux disease) Normocytic anemia History of substance abuse Bipolar disorder Moderate recurrent major depression HCV (hepatitis C virus) Acid reflux Right knee pain Transaminitis Left knee pain Pure hypercholesterolemia Essential hypertension Diabetes mellitus Surgical History History of abdominal paracentesis Hx of esophagogastroduodenoscopy Family History Father CVD (cardiovascular disease) Diabetes Thyroid disease Maternal Grandmother Diabetes Brother Respiratory failure Asthma Sister No problems noted. Daughter No problems noted. Family/Other Mental health disorder Mother Mental health disorder Essential hypertension Social History Household Members: Family Housing: Apartment Do you presently have visiting nurse or other home services: No Alcohol intake: never Patient Tobacco Use Status: Current everyday Tobacco user Tobacco use type: Cigarette Cigarettes Per Day: 3 Years Smoked: 30 e-Cigarette/Vaping Use: Currently Using Second Hand Smoke Exposure: No service: No Current occupational status: unemployed Current occupation: Right Handed Cognitive needs: Yes Hearing needs: No Vision needs: No Physical Exam Vital Signs: Last Vital Signs Pulse 91 09/18/24 09:56 BP 130/78 09/18/24 09:56 Pulse Ox 99 09/18/24 09:56 Oxygen Delivery Method Room Air 09/18/24 09:56 BMI result Body Mass Index 36.7 Results Reviewed Results Reviewed: Laboratory Tests 06/08/24 06/08/24 11:52 11:53 Creatinine 1.31 Estimated GFR 57 Triglycerides 99 Cholesterol 181 LDL Cholesterol, Calc 116 H HDL Cholesterol 46 Vitamin B12 781 Urine Creatinine 29.94 Urine Microalbumin < 5.0 Microalb/Creat Ratio TNP Assessment & Plan Assessment & Plan (1) Type 2 diabetes mellitus with hyperglycemia: Code(s): E11.65 - Type 2 diabetes mellitus with hyperglycemia Category: Medical Qualifiers: Diabetes mellitus middle or intermediate school principal insulin use: with senior care use Qualified Code(s): E11.65 - Type 2 diabetes mellitus with hyperglycemia; Z79.4 - senior living (current) use of insulin Plan In summary this is a 54-year-old male with uncontrolled type 2 diabetes and cirrhosis of the liver. Discussed pathophysiology of Type II Diabetes Mellitus with the patient in detail.? I explained the middle or intermediate school principal risks and complications associated with uncontrolled diabetes including nephropathy, neuropathy, peripheral vascular disease, retinopathy, increased risk of heart disease and stroke.? Diabetic diet reviewed. He met with a dietitian in February of 2024. He is trying to make changes to his diet. It is medically necessary to change this patient to the Nyla 3+ sensors because the Nyla 3 sensors have been giving inaccurate readings and only lasting for 7 days. I sent the prescription in the pharmacy and please the Nyla 3+ sensor on the patient today. Nyla 3 is also being discontinued. Increase Lantus to 45 in the morning and 50 at night. Continue Metformin 1 pill twice daily. Humalog: Blood sugar under 150 - do not use humalog Blood sugar 150 to 200 administer 10 units Blood sugar 200-250 administer 15 units Blood sugar 250-300 administer 20 units Blood sugar 300-400 administer 25 units Reviewed proper treatment of hypoglycemia and hyperglycemia. Written instructions provided to the patient, and he said he has glucose tablets at home. He also has ketone care strips. Follow up in 2 weeks for type 2 diabetes. Medications: New blood-glucose sensor (FreeStyle Nyla 3 Plus Sensor device) Apply 1 new sensor every 15 days as directed to monitor blood glucose continuously. 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 Continue Metformin 1 pill twice daily. Humalog: Blood sugar under 150 - do not use humalog Blood sugar 150 to 200 administer 10 units Blood sugar 200-250 administer 15 units Blood sugar 250-300 administer 20 units Blood sugar 300-400 administer 25 units Coding Level of Care Code Est Pt Level 4 (86094) Complex EM visit Add On G2211 Diagnoses Type 2 diabetes mellitus with hyperglycemia, with long-term current use of insulin E11.65; Z79.4 Diabetes mellitus middle or intermediate school principal insulin use: with senior care use
[2024-09-18 09:56] VITALS: BP 130/78; PULSE 91; O2SAT 99; BMI 36.7
[2024-09-18 10:33] LABS: Glucose, Whole Blood 223 mg/dL (60-115)
== END 2024-09-18 10:31 | disposition home or self-care (01) ==
LOC: HO.ENCR 09:47
PROVIDERS: PCP Internal Medicine; Visit Provider Physician Assistant Medical
DX: E11.65 Type 2 diabetes mellitus with hyperglycemia (principal); Z79.4 Long term (current) use of insulin

== ENCOUNTER → 2024-09-18 09:46 | Outpatient (BNVA) | payer OTHER, SELFPAY | PROVIDERS: PCP Internal Medicine; Visit Provider Physician Assistant Medical | DX: E11.65 Type 2 diabetes mellitus with hyperglycemia (principal); Z79.4 Long term (current) use of insulin | CPT/HCPCS: 82947; 99212 ==

== ENCOUNTER 2024-10-02 09:31 | Outpatient (AMB) | payer OTHER, SELFPAY ==
--- NOTE | 2024-10-02 09:42 | A.OFFVIS_ITS ---
Vital Signs 10/02/24 09:47 Height 5 ft 6 in Weight 226 lb 6.636 oz BMI 36.5 BP 134/78 Blood Pressure Location Rt brachial Position Sitting Pulse 92 Pulse Source Pulse Oximeter Pulse Oximetry (%) 97 Oxygen Delivery Method Room Air Intake Visit Reasons: T2DM Intake Note: Patient present today to follow up on Type 2 Diabetes Mellitus. Last Diabetic Eye exam: Due, appointment pending Last Podiatry Visit: Does not see a German Teacher Random Glucose: 428 mg/dl 9:54 am, 270 mg/dl 11:33 am HgA1C: 11.3% 08/18/2024 Urine Ketone: Negative Financial Accounting Analyst Required: Yes Financial Accounting Analyst Language: Chef French Services: Financial Accounting Analyst Offered & Declined Accompanied by: Self / Same As Patient Allergies lisinopril Adverse Reaction (Intermediate, Verified 10/02/24 09:48) Headache Medication List - Last Reconciled 10/02/24 by JORDAN Florentino acetone (urine) test (Ketone Care strips) As directed. amlodipine 5 mg PO DAILY 90 days blood sugar diagnostic (OneTouch Verio test strips) Use as directed to check blood glucose five times daily. blood-glucose meter (OneTouch Verio Flex Meter) Use as directed to check blood glucose five times daily for type II diabetes. blood-glucose sensor (FreeStyle Nyla 3 Plus Sensor device) Apply 1 new sensor every 15 days as directed to monitor blood glucose continuously. blood-glucose,picture engraver,cont (FreeStyle Nyla 3 [place]) as directed buprenorphine-naloxone 8-2 mg 8 mg sublingual TID carvedilol 3.125 mg See Protocol PO BID 90 days cholecalciferol (vitamin D3) 50 mcg PO DAILY 90 days clonazepam 0.5 mg PO DAILY PRN clotrimazole 1% 1 appl topical BID 4 weeks furosemide 20 mg See Protocol PO DAILY 90 days glucose (Dex4 Glucose) 16 grams (4 x 4 gram) PO Q15M PRN [handheld shower As directed] hydrocortisone 1% topical hydrocortisone 1% (Anti-Itch (hydrocortisone)) 1 appl topical TID PRN 2 weeks ibuprofen 800 mg PO Q8H PRN 30 days insulin glargine (Lantus U-100 Insulin) subcutaneously 2 times a day; insulin lispro (Humalog U-100 Insulin) 1 sliding scale dose subcut TID insulin syringe-needle U-100 (BD Insulin Syringe Ultra-Fine) As directed to administer Humalog three times daily insulin syringe-needle U-100 (BD Insulin Syringe Ultra-Fine) As directed to administer Lantus insulin once daily. lancets (OneTouch Delica Plus Lancet) Use as directed to check blood glucose fives times daily. lidocaine 5% 1 patch topical DAILY 30 days metformin ER 500 mg PO BID 90 days [nonslip shower mat As directed] pravastatin 20 mg PO BEDTIME 90 days prazosin 2 mg PO BEDTIME quetiapine 50 mg PO BID quetiapine mg PO Shower Chair As directed spironolactone 50 mg See Protocol PO DAILY 90 days HPI Comments Details: This is a 54-year-old male with a past medical history of cirrhosis, hepatitis- C, opioid dependence, anemia, bipolar disorder, hyperlipidemia, hypertension and type 2 diabetes presenting for diabetic management. He was diagnosed with Type II DM 30 years ago. Hemoglobin A1c 08/18/24 11.3%. Current medication regimen: Metformin extended release 500 mg BID, Lantus 45 in the morning and 50 units at bedtime and Humalog per sliding scale Blood sugar under 150 - do not use humalog Blood sugar 150 to 200 administer 10 units Blood sugar 200-250 administer 15 units Blood sugar 250-300 administer 20 units Blood sugar 300-400 administer 25 units Previous medications: Toujeo caused headaches and was discontinued. He has met with the tobacco prevention health educator. POC 428. Denies symptoms of hyperglycemia/DKA. Patient says that he is taking all of his medications, but he says he did not take Lantus or Humalog this morning. CGM active 49% Average glucose 344 GMI 11.5% Glucose variability 22% Very high 86% High 6% Target range 8% 0% hypoglycemia Patient experiences hyperglycemia throughout 24 hours. Patient says Nyla 3 sensors are not working properly. He notices 50-100 point difference in sensor reading to fingerstick. Does not have glucometer today. Compliance issues:Patient says his psychiatric issues, stress about his dog who is older and the previous of his impact his ability to manage his diabetes and medication administration. No alcohol. Smokes 1 ppd. Hypoglycemia symptoms: Denies symptoms or episodes since last visit. Hyperglycemia symptoms: Patient says he gets no symptoms unless BG 500+ and then he feels fatigued and confused. ROS: Constitutional: No unexplained weight loss, fever, chills , fatigue or night sweats. Eyes: No vision changes, blurry vision, double vision Respiratory: No shortness of breath Cardiovascular: No chest pain or palpitations. No pedal edema. Neurologic: No headache, dizziness, syncope, unilateral weakness, ataxia, numbness or tingling in the extremities. Skin: No open wounds. Endocrine: No cold or heat intolerance. No polyuria or polydipsia. Physical exam: Constitutional: Alert, in no distress. Head: Normocephalic. Eyes: Pupils are equal, round and reactive to light. Extraocular muscles intact. Neck: Supple, Full range of motion. No lymphadenopathy. No palpable thyroid masses. Respiratory: Clear to auscultation. Cardiovascular: S1 S2 regular. No murmurs. Skin: Warm, dry Extremities: Warm and well perfused, no edema PFSH Medical History Type 2 diabetes mellitus with hyperglycemia Cirrhosis Gastric ulcer Portal hypertensive gastropathy GERD (gastroesophageal reflux disease) Normocytic anemia History of substance abuse Bipolar disorder Moderate recurrent major depression HCV (hepatitis C virus) Acid reflux Right knee pain Transaminitis Left knee pain Pure hypercholesterolemia Essential hypertension Diabetes mellitus Surgical History History of abdominal paracentesis Hx of esophagogastroduodenoscopy Family History Father CVD (cardiovascular disease) Diabetes Thyroid disease Maternal Grandmother Diabetes Brother Respiratory failure Asthma Sister No problems noted. Daughter No problems noted. Family/Other Mental health disorder Mother Mental health disorder Essential hypertension Social History Household Members: Family Housing: Apartment Do you presently have visiting nurse or other home services: No Alcohol intake: never Patient Tobacco Use Status: Current everyday Tobacco user Tobacco use type: Cigarette Cigarettes Per Day: 3 Years Smoked: 30 e-Cigarette/Vaping Use: Currently Using Second Hand Smoke Exposure: No service: No Current occupational status: unemployed Current occupation: Right Handed Cognitive needs: Yes Hearing needs: No Vision needs: No Physical Exam Vital Signs: Last Vital Signs Pulse 92 10/02/24 09:47 BP 134/78 10/02/24 09:47 Pulse Ox 97 10/02/24 09:47 Oxygen Delivery Method Room Air 10/02/24 09:47 BMI result Body Mass Index 36.5 Office Meds Humalog U-100 Insulin 100 unit/mL subcutaneous solution Performing Provider: JORDAN Florentino [place] [facility] [place] Administered by: Coretta Morris RN on 10/02/24 10:20 Dose Route Admin Location Dispensed Lot Number Expiration Date [facility] D[employer] Range Operator 10 unit subcut right upper arm 0.1 mL [id number] 06/04/25 [id number] [employer] Comments: Patient is with elevated blood sugar in office. Verbal order given by Ayala Mohamud for 10 units of insulin lispro. Patient is agreeable to plan. 10 units of insulin lispro drawn up in insulin syringe and verbally verified with Ayala Mohamud. Given as above in right upper arm. Patient is drinking water. Verbally advised MA that 10 units was given at 10:20am and will recheck in 1 hour. Results UR Ketone Dip UR Ketone Dip Negative Last Edit by ENIO Black on 10/02 10:46 Results Reviewed Results Reviewed: Laboratory Last Values Glucose (Clinic) 270 mg/dL (60-115) H 10/02/24 11:13 Ur Ketones (Stick) Negative 10/02/24 10:45 Laboratory Tests 06/08/24 06/08/24 11:52 11:53 Creatinine 1.31 Estimated GFR 57 Triglycerides 99 Cholesterol 181 LDL Cholesterol, Calc 116 H HDL Cholesterol 46 Vitamin B12 781 Urine Creatinine 29.94 Urine Microalbumin < 5.0 Microalb/Creat Ratio TNP Assessment & Plan Assessment & Plan (1) Type 2 diabetes mellitus with hyperglycemia: Code(s): E11.65 - Type 2 diabetes mellitus with hyperglycemia Category: Medical Qualifiers: Diabetes mellitus alf insulin use: with buttermaker helper use Qualified Code(s): E11.65 - Type 2 diabetes mellitus with hyperglycemia; Z79.4 - detention (current) use of insulin Plan In summary this is a 54-year-old male with uncontrolled type 2 diabetes and cirrhosis of the liver. Discussed pathophysiology of Type II Diabetes Mellitus with the patient in detail.? I explained the buttermaker helper risks and complications associated with uncontrolled diabetes including nephropathy, neuropathy, peripheral vascular disease, retinopathy, increased risk of heart disease and stroke.? Diabetic diet reviewed. He met with a dietitian in February of 2024. He is trying to make changes to his diet. He presented with severe hyperglycemia today. Urine negative for ketones. He was administered 10 units of Humalog and given water to drink. After 1 hour his blood sugar decreased to 270. His response to Humalog in the office versus CGM data suggests he is not compliant with his medications or CGM is very inaccu rate. We discussed risks of DKA with high blood sugar. He has ketone urine strips and has been given written instructions on when to test and signs and symptoms of DKA. It is medically necessary to change this patient to the Nyla 3+ sensors because the Nyla 3 sensors have been giving inaccurate readings.. I sent the prescription in the pharmacy and please the Nyla 3+ sensor on the patient t gina. Nyla 3 is also being discontinued. Patient is noncompliant with medications. Stressed importance of taking his medications as directed. Continue Lantus to 45 in the morning and 50 at night. Continue Metformin 1 pill twice daily. Humalog: Blood sugar under 150 - do not use humalog Blood sugar 150 to 200 administer 10 units Blood sugar 200-250 administer 15 units Blood sugar 250-300 administer 20 units Blood sugar 300-400 administer 25 units Reviewed proper treatment of hypoglycemia and hyperglycemia. Written instructions provided to the patient, and he said he has glucose tablets at home. Follow up in 4 weeks for type 2 diabetes. Orders: Orders AMB Ketone Urine Dipstick Today Z13.9 - Encounter for screening, unspecified AMB Glucose Monitoring Today E11.9 - Type 2 diabetes mellitus without complications AMB Insulin Lispro Injection Practice Supplied Today E11.65 - Type 2 diabetes mellitus with hyperglycemia, Z79.4 - extermination inspector (current) use of insulin Medications: Refilled blood-glucose sensor (FreeStyle Nyla 3 Plus Sensor device) Apply 1 new sensor every 15 days as directed to monitor blood glucose continuously. 2 ea 11RF E11.65 - Type 2 diabetes mellitus with hyperglycemia, Z79.4 - extermination inspector (current) use of insulin Coding Level of Care Code Est Pt Level 4 (33765) Diagnoses Type 2 diabetes mellitus with hyperglycemia, with long-term current use of insulin E11.65; Z79.4 Diabetes mellitus buttermaker helper insulin use: with alf use
[2024-10-02 09:47] VITALS: BP 134/78; PULSE 92; O2SAT 97; BMI 36.5
[2024-10-02 09:59] LABS: Glucose, Whole Blood 428 mg/dL (60-115)
[2024-10-02 11:18] LABS: Glucose, Whole Blood 270 mg/dL (60-115)
== END 2024-10-02 11:16 | disposition home or self-care (01) ==
LOC: HO.ENCR 09:32
PROVIDERS: PCP Internal Medicine; Visit Provider Physician Assistant Medical
DX: E11.65 Type 2 diabetes mellitus with hyperglycemia (principal); Z79.4 Long term (current) use of insulin; Z13.9 Encounter for screening, unspecified

== ENCOUNTER → 2024-10-02 09:31 | Outpatient (BNVA) | payer OTHER, SELFPAY | PROVIDERS: PCP Internal Medicine; Visit Provider Physician Assistant Medical | DX: E11.65 Type 2 diabetes mellitus with hyperglycemia (principal); E78.5 Hyperlipidemia, unspecified; Z79.4 Long term (current) use of insulin; Z79.84 Long term (current) use of oral hypoglycemic drugs | CPT/HCPCS: 81002; 82947; 96372; 99212; J1815 ==

== ENCOUNTER 2024-10-07 07:46 | Outpatient (AMB) | payer OTHER, SELFPAY ==
--- NOTE | 2024-10-07 07:48 | A.OFFPC_ITS ---
Vital Signs 10/07/24 07:51 Height 5 ft 6 in Weight 225 lb BMI 36.3 BP 170/100 H Blood Pressure Location Lt brachial Position Sitting Intake Visit Reasons: dm Intake Note: Patient here for a follow up DM Turf Manager Required: No Accompanied by: Self / Same As Patient Allergies lisinopril Adverse Reaction (Intermediate, Verified 10/07/24 08:00) Headache Medication List - Last Reconciled 10/07/24 by Kierra Flanagan MD acetone (urine) test (Ketone Care strips) As directed. amlodipine 5 mg PO DAILY 90 days blood sugar diagnostic (Groove ClubTouch Verio test strips) Use as directed to check blood glucose five times daily. blood-glucose meter (Groove ClubTouch Verio Flex Meter) Use as directed to check blood glucose five times daily for type II diabetes. blood-glucose sensor (FreeStyle Nyla 3 Plus Sensor device) Apply 1 new sensor every 15 days as directed to monitor blood glucose continuously. blood-glucose,industrial tech instructor,cont (FreeStyle Nyla 3 [place]) as directed buprenorphine-naloxone 8-2 mg 8 mg sublingual TID carvedilol 3.125 mg See Protocol PO BID 90 days cholecalciferol (vitamin D3) 50 mcg PO DAILY 90 days clonazepam 0.5 mg PO DAILY PRN clotrimazole 1% 1 appl topical BID 4 weeks furosemide 20 mg See Protocol PO DAILY 90 days glucose (Dex4 Glucose) 16 grams (4 x 4 gram) PO Q15M PRN [handheld shower As directed] hydrocortisone 1% topical hydrocortisone 1% (Anti-Itch (hydrocortisone)) 1 appl topical TID PRN 2 weeks ibuprofen 800 mg PO Q8H PRN 30 days insulin glargine (Lantus U-100 Insulin) subcutaneously 2 times a day; insulin lispro (Humalog U-100 Insulin) 1 sliding scale dose subcut TID insulin syringe-needle U-100 (BD Insulin Syringe Ultra-Fine) As directed to administer Humalog three times daily insulin syringe-needle U-100 (BD Insulin Syringe Ultra-Fine) As directed to administer Lantus insulin once daily. lancets (Groove ClubTouch Delica Plus Lancet) Use as directed to check blood glucose fives times daily. lidocaine 5% 1 patch topical DAILY 30 days metformin ER 500 mg PO BID 90 days [nonslip shower mat As directed] pravastatin 20 mg PO BEDTIME 90 days prazosin 2 mg PO BEDTIME quetiapine 50 mg PO BID quetiapine mg PO Shower Chair As directed spironolactone 50 mg See Protocol PO DAILY 90 days Tobacco use date assessed: 10/07/24 Dental Screening Dental Screen Date: 10/07/24 Did you have a dental visit in the last 12 months?: No Did you have a dental problem in the last 6 months where you did not have access to dental care?: No Was dental information given to patient?: Patient has dentist HPI HPI Comments History of Present Illness Details The patient is a 54-year-old male presenting with hypertension, hyperlipidemia, cirrhosis, diabetes mellitus type 2 on long-term current use of insulin, bipolar disorder, opioid dependence on agonist therapy, history of substance abuse and mild to moderate recurrent major depression that comes for follow-up on all his chronic conditions. He describes episodes of elevated blood pressure readings recently, although his levels were stable under medication during prior endocrine evaluations. The patient uses a sensor for monitoring that may not be functioning optimally. His regimen of Amlodipine addresses blood pressure but Lisinopril, also part of his treatment, induces headaches, leading to altered adherence. His diabetes management includes Lantus insulin therapy, administered at split doses (morning and evening), and Metformin, highlighting a concern about blood glucose peaks. An incident of severe hyperglycemia (up to 500 mg/dL) has necessitated possible regimen adjustments to avoid rapid drops in blood sugar levels. Also significant is the management of opioid use disorder with Suboxone and anxiety controlled with Clonazepam. The patient struggles with chronic pain, presumably exacerbated by knee problems, requiring periodic insurance-approved patches. Laboratory evaluations to monitor hyperlipidemia, renal function, and potential Metformin-induced Vitamin B12 depletion are pending and necessary before upcoming endocrinology appointments. The patient plans labs with an 8-hour fast preceding these assessments to ensure precise monitoring of his condition's stability. [facility] Medical History (Updated 10/07/24 @ 08:21 by Kierra Flanagan MD) Type 2 diabetes mellitus with hyperglycemia Cirrhosis Gastric ulcer Portal hypertensive gastropathy GERD (gastroesophageal reflux disease) Normocytic anemia History of substance abuse Bipolar disorder Moderate recurrent major depression HCV (hepatitis C virus) Acid reflux Right knee pain Transaminitis Left knee pain Pure hypercholesterolemia Essential hypertension Diabetes mellitus Surgical History History of abdominal paracentesis Hx of esophagogastroduodenoscopy Family History Father CVD (cardiovascular disease) Diabetes Thyroid disease Maternal Grandmother Diabetes Brother Respiratory failure Asthma Sister No problems noted. Daughter No problems noted. Family/Other Mental health disorder Mother Mental health disorder Essential hypertension Social History Household Members: Family Housing: Apartment Do you presently have visiting nurse or other home services: No Alcohol intake: never Patient Tobacco Use Status: Current everyday Tobacco user Tobacco use type: Cigarette Cigarettes Per Day: 3 Years Smoked: 30 e-Cigarette/Vaping Use: Currently Using Second Hand Smoke Exposure: No service: No Current occupational status: unemployed Current occupation: Right Handed Cognitive needs: Yes Hearing needs: No Vision needs: No Questionnaire PHQ-9 Over the last 2 weeks, how often have you been bothered by any of the following problems? 1. Little interest or pleasure in doing things: not at all 2. Feeling down, depressed, or hopeless: not at all 3. Trouble falling or staying asleep, or sleeping too much: not at all 4. Feeling tired or having little energy: not at all 5. Poor appetite or overeating: not at all 6. Feeling bad about yourself - or that you are a failure or have let yourself or your family down: not at all 7. Trouble concentrating on things, such as reading the newspaper or watching television: not at all 8. Moving or speaking so slowly that other people could have noticed. Or the opposite - being so fidgety or restless that you have been moving around a lot more than usual: not at all 9. Thoughts that you would be better off or of hurting yourself in some way: not at all Total score: 0 Depression Screening Interpretation: Negative Depression Screening Done: Yes 04427 - PHQ-9 Billing: Yes Source: Developed by Drs. Yaron Pinto, Carmen Black, Cameron Mc and colleagues, with an educational elizabeth from [employer]. Thrive Questionnaire Date Thrive assessed: 10/07/24 I am a: Patient What is your living situation today?: I have a steady place to live Within the past 12 months, did the food you bought not last and you didn't have the money to get more?: Often true Within the past 12 months, did you worry whether your food would run out before you got money to buy more?: Sometimes True Do you have trouble paying for medicines?: No Do you have trouble getting transportation to medical appointments?: No Do you have trouble paying your heating and electricity bill?: Yes Do you have trouble taking care of your child, family member or friend?: No Do you have trouble with day-to-day activities such as bathing, preparing meals, shopping, managing finances, etc.?: Yes Are you currently unemployed and looking for a job?: Yes Are you interested in more education?: No Please select the resources that you would like help with: Housing/Residential, Food and Utilities Currently or been in a relationship where the following occur: I choose not to answer THRIVE Score: 3 AUDIT C Alcohol Use Questionnaire (AUDIT-C) 1. How often do you have a drink containing alcohol?: Never Total Score: 0 Score Reviewed/Action Taken: No JOSEPH-7 AMB Questionnaire JOSEPH-7 Date JOSEPH - 7 assessed: 10/07/24 Feeling nervous, anxious, or on edge: 1 = Several days Not being able to stop or control worryin = Not at all Worrying too much about different things: 1 = Several days Trouble relaxin = Several days Being so restless that it is hard to sit still: 0 = Not at all Becoming easily annoyed or irritable: 1 = Several days Feeling afraid as if something awful might happen: 0 = Not at all Total JOSEPH-7 score (0-4 normal; 5-9 mild; 10-14 moderate; 15-21 severe): 4 Source: Developed by Drs. Yaron Pinto, Carmen Black, Cameron Mc and colleagues, with an educational elizabeth from [employer]. JOSEPH-7 Assessment Billing JOSEPH-7 Assessment Tool: JOSEPH-7 Assessment 38840 Review of Systems Const All systems reviewed & are unremarkable except as noted in HPI and below Card Denies chest pain at rest, Denies chest pain with activity, Denies edema, Denies irregular heart rhythm, Denies claudication, Denies dyspnea, Denies dyspnea on exertion, Denies orthopnea, Denies paroxysmal nocturnal dyspnea and Denies slow heart rate Resp Denies cough, Denies dyspnea and Denies dyspnea on exertion GI Denies abdominal pain, Denies change in bowel habits, Denies excessive flatus, Denies nausea and Denies vomiting Denies urinary hesitancy, Denies urinary incontinence and Denies urinary urgency Musc Denies atrophy, Denies deformity and Denies limited range of motion Skin/Breast Denies bleeding lesions, Denies changing lesions and Denies rash Physical exam (Primary Care) Vital Signs: Last Vital Signs BP 170/100 H 10/07/24 07:51 BMI result Body Mass Index 36.3 BMI Assessment/Plan discussion: High BMI High, discussed plan: lifestyle, weight reduction, dietary and physical activity Tobacco/Smoking Status: Tobacco use Status Tobacco use date assessed 10/07/24 10/07/24 07:56 Patient Tobacco Use Status Current everyday Tobacco 10/07/24 07:56 Tobacco use type Cigarette 10/07/24 07:56 e-Cigarette/Vaping Use Currently Using 10/07/24 07:56 PHQ-9: PHQ-9 Score PHQ-9: Total score 0 10/07/24 08:06 Depression Screening Interpretation: Negative Thrive Assessment: Date of Thrive Assessment Date Thrive assessed 10/07/24 10/07/24 07:56 Currently or been in a relationship where the following occur: I choose not to answer Neck Neck: Yes normal visual inspection and Yes supple Resp Effort & Inspection: normal respiratory effort Auscultation: clear to auscultation bilaterally Cardio Jugular venous distension: no JVD Rate: regular rate Rhythm: regular rhythm Heart sounds: S1 normal heart sound present and S2 normal heart sound present Extrem General: Yes full ROM Coding Level of Care Code Est Pt Level 4 (61102) Complex EM visit Add On G2211 Diagnoses Type 2 diabetes mellitus with hyperglycemia, with long-term current use of insulin E11.65; Z79.4 Diabetes mellitus penitentiary insulin use: with penitentiary use Cirrhosis of liver with ascites, unspecified hepatic cirrhosis type K74.60; R18.8 Hepatic cirrhosis type: unspecified hepatic cirrhosis Ascites presence: with ascites Opioid dependence on agonist therapy F11.20 Bipolar affective disorder in remission F31.70 Active/Remission status: in remission of unspecified degree Moderate recurrent major depression F33.1 History of substance abuse F19.11 Type 2 diabetes mellitus without complication, unspecified whether penitentiary insulin use E11.9 Diabetes mellitus type: type 2 Diabetes mellitus penitentiary insulin use: unspecified terminologist insulin use status Diabetes mellitus complication status: without complication Pure hypercholesterolemia E78.00 Essential hypertension I10 Additional Codes JOSEPH-7 Assessment Billing - JOSEPH-7 Assessment Tool: JOSEPH-7 Assessment 46857 ([id number]) PHQ-9 - 01618 - PHQ-9 Billing: Yes ([id number]) Time Spent (min) 25 Assessment & Plan Assessment & Plan (1) Type 2 diabetes mellitus with hyperglycemia: Code(s): E11.65 - Type 2 diabetes mellitus with hyperglycemia Category: Medical Qualifiers: Diabetes mellitus terminologist insulin use: with terminologist use Qualified Code(s): E11.65 - Type 2 diabetes mellitus with hyperglycemia; Z79.4 - MCC (current) use of insulin (2) Cirrhosis: Code(s): K74.60 - Unspecified cirrhosis of liver Category: Medical Qualifiers: Hepatic cirrhosis type: unspecified hepatic cirrhosis Ascites presence: with ascites Qualified Code(s): K74.60 - Unspecified cirrhosis of liver; R18.8 - Other ascites (3) Opioid dependence on agonist therapy: Code(s): F11.20 - Opioid dependence, uncomplicated Category: Medical (4) Bipolar disorder: Code(s): F31.9 - Bipolar disorder, unspecified Category: Medical Qualifiers: Active/Remission status: in remission of unspecified degree Qualified Code(s): F31.70 - Bipolar disorder, currently in remission, most recent episode unspecified (5) Moderate recurrent major depression: Comment: brianda avila [place] Code(s): F33.1 - Major depressive disorder, recurrent, moderate Category: Medical (6) History of substance abuse: Code(s): F19.11 - Other psychoactive substance abuse, in remission Category: Medical (7) Diabetes mellitus: Code(s): E11.9 - Type 2 diabetes mellitus without complications Category: Medical Qualifiers: Diabetes mellitus type: type 2 Diabetes mellitus terminologist insulin use: unspecified penitentiary insulin use status Diabetes mellitus complication status: without complication Qualified Code(s): E11.9 - Type 2 diabetes mellitus without complications (8) Pure hypercholesterolemia: Code(s): E78.00 - Pure hypercholesterolemia, unspecified Category: Medical (9) Essential hypertension: Code(s): I10 - Essential (primary) hypertension Category: Medical Plan The approach will address hypertension with particular consideration of adverse reactions to current medication and ensuring the sensor's functionality. Diabetes management will include a possible Lantus dosing revision to prevent hyperglycemia. Opioid use disorder management will continue with Suboxone, with evaluation of anxiety treatment sustained with Clonazepam. We will also look into the insurance protocol for knee pain patches. Comprehensive labs will be organized coinciding with endocrinology appointments, emphasizing renal, cholesterol, and Vitamin monitoring. Health management will adapt with potential strategies or plans adjusted based on laboratory interpretation. Patient was informed and verbally consented to the use of an ambient scribe for clinic note documentation during this visit. During the consultation, I reviewed the patient's antihypertensive regimen, advising caution due to adverse effects noted with Lisinopril and the necessity of sensor checks. We discussed the importance of maintaining stable blood glucose levels, emphasizing the need to prevent significant fluctuations. The management of chronic pain and its associated care plan involving knee patches will adhere to the insurance requirements. I reiterated the importance of necessary lab tests, advising fasting before conducting these assessments, ensuring informed subsequent discussions with the deoiling machine operator. Alternative methods for glasses were recommended, balancing cost considerations. Follow-up was focused on appropriate coordination of specialty care and ensuring continuity of management for chronic conditions. Orders: Orders Lipid Panel Today E78.5 - Hyperlipidemia, unspecified Complete Blood Count Auto Diff Today D64.9 - Anemia, unspecified Vitamin B12 and Folate Today E53.8 - Deficiency of other specified B group vitamins Vitamin D 25-OH Total Today E55.9 - Vitamin D deficiency, unspecified Comprehensive Donovan. 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 - Report any malfunctioning symptoms of the blood pressure sensor immediately. - Maintain the current Lantus dosing of 45 units in the morning and 50 units at night, while monitoring glucose levels. - Use Suboxone as prescribed for opioid dependency. - Follow knee pain management protocols, ensuring proper authorization for patches. - Plan fasting labs before the next endocrinology appointment for accurate results. - Schedule and complete a follow-up with the endocrinology team. - Contact the pharmacy for prescription refills in advance to avoid lapses in medication. - Seek medical attention promptly for concerning symptoms or if conditions worsen.
[2024-10-07 07:51] VITALS: BP 170/100; BMI 36.3
== END 2024-10-07 08:20 | disposition home or self-care (01) ==
LOC: HO.HMCH 07:47
PROVIDERS: PCP Internal Medicine; Visit Provider Internal Medicine
DX: E11.65 Type 2 diabetes mellitus with hyperglycemia (principal); Z79.4 Long term (current) use of insulin; K74.60 Unspecified cirrhosis of liver; F11.20 Opioid dependence, uncomplicated; F31.70 Bipolar disorder, currently in remission, most recent episode unspecified; R18.8 Other ascites; F33.1 Major depressive disorder, recurrent, moderate; F19.11 Other psychoactive substance abuse, in remission; E11.9 Type 2 diabetes mellitus without complications; E78.00 Pure hypercholesterolemia, unspecified; I10 Essential (primary) hypertension

== ENCOUNTER → 2024-10-07 07:46 | Outpatient (BNVA) | payer OTHER, SELFPAY | PROVIDERS: PCP Internal Medicine; Visit Provider Internal Medicine | DX: E11.65 Type 2 diabetes mellitus with hyperglycemia (principal); K74.60 Unspecified cirrhosis of liver; R18.8 Other ascites; F11.20 Opioid dependence, uncomplicated; F31.70 Bipolar disorder, currently in remission, most recent episode unspecified; F33.1 Major depressive disorder, recurrent, moderate; F19.11 Other psychoactive substance abuse, in remission; E11.9 Type 2 diabetes mellitus without complications; E78.00 Pure hypercholesterolemia, unspecified; I10 Essential (primary) hypertension; Z79.4 Long term (current) use of insulin | CPT/HCPCS: 96127; 99212 ==

== ENCOUNTER 2024-10-30 08:03 | Outpatient (AMB) | payer OTHER, SELFPAY ==
--- NOTE | 2024-10-30 08:18 | A.OFFVIS_ITS ---
Vital Signs 10/30/24 08:20 Height 5 ft 6 in Weight 227 lb 1.218 oz BMI 36.6 BP 148/88 H Blood Pressure Location Rt brachial Position Sitting Pulse 82 Pulse Source Pulse Oximeter Pulse Oximetry (%) 97 Oxygen Delivery Method Room Air Intake Visit Reasons: type II diabetes Intake Note: Patient present today to follow up on Type 2 Diabetes Mellitus. Last Diabetic Eye exam: Due, appointment pending Last Podiatry Visit: Does not see a Chief Technician X Ray Random Glucose: 412 mg/dl @ 8:24 AM HgA1C: 11.3% 08/18/2024 Firearms Assembly Supervisor Required: Yes Firearms Assembly Supervisor Language: Ob/Gyn Physician Services: Firearms Assembly Supervisor Offered & Declined Accompanied by: Self / Same As Patient Allergies lisinopril Adverse Reaction (Intermediate, Verified 10/30/24 08:21) Headache HPI Comments Details: This is a 54-year-old male with a past medical history of cirrhosis, hepatitis- C, opioid dependence, anemia, bipolar disorder, hyperlipidemia, hypertension and type 2 diabetes presenting for diabetic management. He was diagnosed with Type II DM 30 years ago. Hemoglobin A1c 08/18/24 11.3%. Reviewed freestyle Nyla 3 report CGM active 86% Average glucose 348 G CA 11.6 % Glucose variability 19% 90% high 7% high 3% target range 0% hypoglycemia. The patient has hyperglycemia throughout 24 hours. Current medication regimen: Metformin extended release 500 mg BID, Lantus 45 in the morning and 50 units at bedtime and Humalog per sliding scale Blood sugar under 150 - do not use humalog Blood sugar 150 to 200 administer 10 units Blood sugar 200-250 administer 15 units Blood sugar 250-300 administer 20 units Blood sugar 300-400 administer 25 units Previous medications: Toujeo caused headaches and was discontinued. He has met with the natural resources extension educator. POC 412. Denies symptoms of hyperglycemia/DKA. He says he feels fine this morning except that he is anxious because he has a another appointment he needs to sort out an issue with his license. Patient says he administered Lantus 45 units and 20 units of Humalog this morning around 05:00. Patient reports Nyla 3 sensor is working better, but his sensor failed a few days ago, and he is not able to get another 1 from the pharmacy yet. I provided him with a sample Nyla 3+ today. Compliance issues:Patient says his psychiatric issues, stress about his dog who is older and the previous of his impact his ability to manage his diabetes and medication administration. No alcohol. Smokes 1 ppd. Hypoglycemia symptoms: Denies symptoms or episodes since last visit. Hyperglycemia symptoms: Patient says he gets no symptoms unless BG 500+ and then he feels fatigued and confused. ROS: Constitutional: No unexplained weight loss, fever, chills , fatigue or night sweats. Eyes: No vision changes, blurry vision, double vision Respiratory: No shortness of breath Cardiovascular: No chest pain or palpitations. No pedal edema. Neurologic: No headache, dizziness, syncope, unilateral weakness, ataxia, numbness or tingling in the extremities. Skin: No open wounds. Endocrine: No cold or heat intolerance. No polyuria or polydipsia. Physical exam: Constitutional: Alert, in no distress. Head: Normocephalic. Eyes: Pupils are equal, round and reactive to light. Extraocular muscles intact. Neck: Supple, Full range of motion. No lymphadenopathy. No palpable thyroid masses. Respiratory: Clear to auscultation. Cardiovascular: S1 S2 regular. No murmurs. Skin: Warm, dry Extremities: Warm and well perfused, no edema PFSH Medical History Type 2 diabetes mellitus with hyperglycemia Cirrhosis Gastric ulcer Portal hypertensive gastropathy GERD (gastroesophageal reflux disease) Normocytic anemia History of substance abuse Bipolar disorder Moderate recurrent major depression HCV (hepatitis C virus) Acid reflux Right knee pain Transaminitis Left knee pain Pure hypercholesterolemia Essential hypertension Diabetes mellitus Surgical History History of abdominal paracentesis Hx of esophagogastroduodenoscopy Family History Father CVD (cardiovascular disease) Diabetes Thyroid disease Maternal Grandmother Diabetes Brother Respiratory failure Asthma Sister No problems noted. Daughter No problems noted. Family/Other Mental health disorder Mother Mental health disorder Essential hypertension Social History Household Members: Family Housing: Apartment Do you presently have visiting nurse or other home services: No Alcohol intake: never Patient Tobacco Use Status: Current everyday Tobacco user Tobacco use type: Cigarette Cigarettes Per Day: 3 Years Smoked: 30 e-Cigarette/Vaping Use: Currently Using Second Hand Smoke Exposure: No service: No Current occupational status: unemployed Current occupation: Right Handed Cognitive needs: Yes Hearing needs: No Vision needs: No Physical Exam Vital Signs: Last Vital Signs Pulse 82 10/30/24 08:20 BP 148/88 H 10/30/24 08:20 Pulse Ox 97 10/30/24 08:20 Oxygen Delivery Method Room Air 10/30/24 08:20 BMI result Body Mass Index 36.6 Office Procedures Glucose Monitoring Details Details: see [facility] [address] - Glucose monitoring, continuous-physician I&R Procedure code (CPT) selection complete Results Reviewed Results Reviewed: Laboratory Last Values Glucose (Clinic) 412 mg/dL (60-115) H* 10/30/24 08:24 Laboratory Tests 06/08/24 06/08/24 11:52 11:53 Creatinine 1.31 Estimated GFR 57 Triglycerides 99 Cholesterol 181 LDL Cholesterol, Calc 116 H HDL Cholesterol 46 Vitamin B12 781 Urine Creatinine 29.94 Urine Microalbumin < 5.0 Microalb/Creat Ratio TNP Assessment & Plan Assessment & Plan (1) Type 2 diabetes mellitus with hyperglycemia: Code(s): E11.65 - Type 2 diabetes mellitus with hyperglycemia Category: Medical Qualifiers: Diabetes mellitus intermediate manager insulin use: with intermediate manager use Qualified Code(s): E11.65 - Type 2 diabetes mellitus with hyperglycemia; Z79.4 - alf (current) use of insulin Plan In summary this is a 54-year-old male with uncontrolled type 2 diabetes and cirrhosis of the liver. Discussed pathophysiology of Type II Diabetes Mellitus with the patient in detail.? I explained the care home risks and complications associated with uncontrolled diabetes including nephropathy, neuropathy, peripheral vascular disease, retinopathy, increased risk of heart disease and stroke.? Diabetic diet reviewed. He met with a dietitian in February of 2024. He is trying to make changes to his diet. He presents with severe hyperglycemia today. Declined testing urine for ketones. Declined insulin AMA. I explained the risk of leaving without treatment including end-organ damage, DKA, coma and . He to continued declined treatment or ER evaluation. I expressed concern that he is not compliant with his medications as he says that he took 20 units of Humalog this morning and Lantus and still has a blood sugar over 400. When he was at his last office visit his blood sugar was over 400 and we administered 10 units of Humalog and his blood sugar decreased to 270 over the course of an hour. He is adamant that he is taking his medications as directed so I adjusted his medications as follows: Metformin extended release 500 mg twice daily, increase to Lantus 50 in the morning and 55 units at bedtime and continue Humalog per sliding scale Blood sugar under 150 - do not use humalog Blood sugar 150 to 200 administer 12 units Blood sugar 200-250 administer 18 units Blood sugar 250-300 administer 24 units Blood sugar 300-400 administer 28 units Blood sugar >400 administer 30 units We discussed risks of DKA with high blood sugar. He has ketone urine strips and has been given written instructions on when to test and signs and symptoms of DKA. Reviewed proper treatment of hypoglycemia and hyperglycemia. Follow up in 4 weeks for type 2 diabetes. Orders: Orders AMB Glucose Monitoring Today E11.9 - Type 2 diabetes mellitus without complications Patient Instructions: Metformin extended release 500 mg twice daily, increase to Lantus 50 in the morning and 55 units at bedtime and continue Humalog per sliding scale Blood sugar under 150 - do not use humalog Blood sugar 150 to 200 administer 12 units Blood sugar 200-250 administer 18 units Blood sugar 250-300 administer 24 units Blood sugar 300-400 administer 28 units Blood sugar >400 administer 30 units Coding Level of Care Code Est Pt Level 4 (92588) Diagnoses Type 2 diabetes mellitus with hyperglycemia, with long-term current use of insulin E11.65; Z79.4 Diabetes mellitus intermediate manager insulin use: with intermediate manager use CPT Codes Details - CPT: 87136 - Glucose monitoring, continuous-physician I&R ([id number])
[2024-10-30 08:20] VITALS: BP 148/88; PULSE 82; O2SAT 97; BMI 36.6
[2024-10-30 08:29] LABS: Glucose, Whole Blood 412 mg/dL (60-115)
== END 2024-10-30 08:54 | disposition home or self-care (01) ==
LOC: HO.ENCR 08:04
PROVIDERS: PCP Internal Medicine; Visit Provider Physician Assistant Medical
DX: E11.65 Type 2 diabetes mellitus with hyperglycemia (principal); Z79.4 Long term (current) use of insulin

== ENCOUNTER → 2024-10-30 08:03 | Outpatient (BNVA) | payer OTHER, SELFPAY | PROVIDERS: PCP Internal Medicine; Visit Provider Physician Assistant Medical | DX: E11.65 Type 2 diabetes mellitus with hyperglycemia (principal); E78.5 Hyperlipidemia, unspecified; Z79.4 Long term (current) use of insulin; Z79.84 Long term (current) use of oral hypoglycemic drugs | CPT/HCPCS: 82947; 99212 ==

== ENCOUNTER 2024-11-21 17:09 | Emergency (ER) | payer OTHER, SELFPAY ==
--- NOTE | ~2024-11-21 | CT_ITS ---
CLINICAL HISTORY: L flank pain, hematuria, hx calculi CT abdomen and pelvis without contrast Comparison: None Findings: There is 7 mm stone of the left ureteropelvic junction causing mild fullness of the renal pelvis. Left nephrolithiasis measures up to 3 mm. No right hydronephrosis. Right nephrolithiasis measures up to 4 mm. No bladder stone. No consolidation at the lung bases. No gallstones visible on CT. There is gallbladder wall thickening and trace pericholecystic fluid. Cirrhotic liver. Splenomegaly, measuring 17.6 cm in craniocaudal dimension. 2.3 cm fluid attenuation lesion in midline/posterior aspect of the prostate. The other solid organs are normal. Small hiatal hernia. Duodenal diverticula. No bowel wall thickening or dilation. A normal appendix is identified. Colonic diverticulosis. No aneurysm. Mild calcified atherosclerotic disease. Retroperitoneal and upper abdominal lymph nodes measure up to 1.3 cm in short axis. No ascites. No acute fracture. Impression: 7 mm stone at the left ureteropelvic junction causing mild fullness of the left renal pelvis. Cirrhosis with splenomegaly. Lymphadenopathy of uncertain etiology. Nonemergent workup or follow up is recommended. No gallstones visible on CT. Gallbladder wall thickening with trace pericholecystic fluid is likely secondary to liver pathology. If there is clinical concern for acute cholecystitis further evaluation with a right upper quadrant ultrasound may be helpful. Cystic lesion in the prostate could be mullerian duct cyst or prostatic utricle cyst This document has been electronically signed by: Ira Esparza MD on 11/21/2024 20:47:21
[2024-11-21 17:22] VITALS: BP 153/78; PULSE 93; RESP 14; TEMP 36.5; O2SAT 97; BMI 35.7
--- NOTE | 2024-11-21 17:28 | ED_ITS ---
HPI - General Adult General Chief complaint: Abdominal Pain Stated complaint: left side pain/blood in the urine Time Seen by Provider: 11/21/24 18:49 Source: patient Mode of arrival: ambulatory Limitations: language barrier (Danish-speaking edge inker uppers utilized) History of Present Illness ED Provider: Kera Deshpande NP HPI narrative: Patient is a 54-year-old male who presents emergency department for evaluation. Reports over the past few days he has been experiencing left flank pain hematuria and dysuria. He denies history of similar pain in the past. He admits to having urinary frequency but states that this is chronic for him due to his medications for his liver and diabetes. He addition states that his blood sugars usually run high he has recently started following with a corporate real estate specialist in has started on 2 different insulins. He does state that he is not taking Humalog since this morning. He denies fevers, chills, chest pain, shortness of breath, nausea, vomiting, abdominal pain constipation, diarrhea, hematochezia, or melena, lower extremity pain numbness or tingling. Related Data Home Medications ?Medication ?Instructions ?Recorded ?Confirmed clonazepam 0.5 mg tablet 0.5 mg PO DAILY PRN Anxiety 08/15/21 10/07/24 quetiapine 50 mg tablet 50 mg PO BID 08/15/21 10/07/24 buprenorphine 8 mg-naloxone 2 mg 8 mg sublingual TID 10/09/22 10/07/24 sublingual film prazosin 2 mg capsule 2 mg PO BEDTIME 10/09/22 10/07/24 hydrocortisone 1 % topical cream topical 09/06/23 10/07/24 with perineal applicator quetiapine 100 mg tablet mg PO 09/06/23 10/07/24 insulin glargine 100 unit/mL See Rx Instructions subcut BID 09/18/24 10/07/24 subcutaneous solution (Lantus U-100 Insulin) insulin lispro 100 unit/mL 1 sliding scale dose subcut TID 09/18/24 10/07/24 subcutaneous solution (Humalog U-100 Insulin) Previous Rx's ?Medication ?Instructions ?Recorded Shower Chair #1 ea 05/22/22 handheld shower #1 ea 05/22/22 nonslip shower mat #1 ea 05/22/22 amlodipine 5 mg tablet 5 mg PO DAILY 90 days #90 tabs 02/05/24 carvedilol 3.125 mg tablet 3.125 mg PO BID 90 days #180 tabs 02/05/24 cholecalciferol (vitamin D3) 50 50 mcg PO DAILY 90 days #90 caps 02/05/24 mcg (2,000 unit) capsule furosemide 20 mg tablet 20 mg PO DAILY 90 days #90 tabs 02/05/24 pravastatin 20 mg tablet 20 mg PO BEDTIME 90 days #90 tabs 02/05/24 glucose 4 gram chewable tablet 16 g (4 x 4 gram) PO Q15M PRN 02/21/24 (Dex4 Glucose) hypoglycemia #60 tabs blood sugar diagnostic (OneTouch #200 ea 04/03/24 Verio test strips) blood-glucose meter (OneTouch #1 ea 04/03/24 Verio Flex Meter) blood-glucose,medication administration professional,cont #1 ea 04/03/24 (FreeStyle Nyla 3 [place]) lancets 33 gauge (OneTouch Delica #200 ea 04/03/24 Plus Lancet) insulin syringe-needle U-100 0.3 #100 ea 05/19/24 mL 31 gauge x 5/16 (BD Insulin Syringe Ultra-Fine) insulin syringe-needle U-100 1 mL #100 ea 05/19/24 31 gauge x 5/16 (BD Insulin Syringe Ultra-Fine) hydrocortisone 1 % topical cream 1 appl topical TID PRN skin 06/02/24 (Anti-Itch (hydrocortisone)) irritation 2 weeks #28.4 grams ibuprofen 800 mg tablet 800 mg PO Q8H PRN pain 30 days #90 06/08/24 tabs spironolactone 25 mg tablet 50 mg PO DAILY 90 days #180 tabs 08/08/24 acetone (urine) test (Ketone Care #100 ea 08/18/24 strips) blood-glucose sensor (FreeStyle #2 ea 10/02/24 Nyla 3 Plus Sensor device) clotrimazole 1 % topical cream 1 appl topical BID 4 weeks #30 10/07/24 grams lidocaine 5 % topical patch 1 patch topical DAILY 30 days #30 10/07/24 ea urinal #1 ea 10/07/24 metformin 500 mg tablet,extended 500 mg PO BID #180 tabs 11/17/24 release 24 hr ketorolac 10 mg tablet 10 mg PO Q8H PRN pain 3 days #10 11/21/24 tabs naproxen 500 mg tablet 500 mg PO BID PRN pain #10 tabs 11/21/24 Allergies Allergy/AdvReac Type Severity Reaction Status Date / Time lisinopril AdvReac Intermediate Headache Verified 11/21/24 17:28 Review of Systems 2 Review of Systems: Yes all other systems are reviewed and are negative PMFSH Past Medical History Attestation statement: The following information was validated with the patient. Source: old records reviewed Medical History Type 2 diabetes mellitus with hyperglycemia Cirrhosis Gastric ulcer Portal hypertensive gastropathy GERD (gastroesophageal reflux disease) Normocytic anemia History of substance abuse Bipolar disorder Moderate recurrent major depression HCV (hepatitis C virus) Acid reflux Right knee pain Transaminitis Left knee pain Pure hypercholesterolemia Essential hypertension Diabetes mellitus Surgical History History of abdominal paracentesis Hx of esophagogastroduodenoscopy Family History Family History Father CVD (cardiovascular disease) Diabetes Thyroid disease Maternal Grandmother Diabetes Brother Respiratory failure Asthma Sister No problems noted. Daughter No problems noted. Family/Other Mental health disorder Mother Mental health disorder Essential hypertension Social History Social History Household Members: Family Housing: Apartment Do you presently have visiting nurse or other home services: No Alcohol intake: never Patient Tobacco Use Status: Current everyday Tobacco user Tobacco use type: Cigarette Cigarettes Per Day: 3 Years Smoked: 30 Smoked in Last 30 Days: Yes e-Cigarette/Vaping Use: Currently Using Second Hand Smoke Exposure: No Use of substances other than those prescribed or required for medical reasons: No Substance Use Type: Former Substance User Advance Directives: No Advance Directives Information Provided: No service: No Current occupational status: unemployed Current occupation: Right Handed Cognitive needs: Yes Hearing needs: No Vision needs: No Physical Exam ED Vital Signs: Vital Signs - 24 hr 11/21/24 17:22 11/21/24 19:34 Temperature 97.7 F 98.5 F Pulse Rate 93 71 Respiratory Rate 14 15 Blood Pressure 153/78 H 132/76 Pulse Oximetry 97 95 Oxygen Delivery Method Room Air Room Air BMI result Body Mass Index 35.7 Appearance: Alert.?Oriented to person, place and time. No acute distress.?Normal affect. Neck: Normal inspection.? Neck supple.?? CVS: Heart sounds normal. Normal heart rate and rhythm.? Pulses normal.?? Respiratory: No respiratory distress.? Lung sounds clear to auscultation bilaterally?? Abdomen: Soft and non-tender. Normoactive bowel sounds. Left CVA tenderness Skin: Skin warm and dry.? Normal skin color.? Extremities: No lower extremity edema.? ? Neuro: Moves all extremities spontaneously. Sensation intact bilaterally. CN II- XII intact. No focal neuro deficits. Ambulates with normal steady gait. Course Course Course Narrative: RME performed by Ashly Elias PA-C. Patient is a 54 year old assigned male at presenting to the emergency department with left flank pain and blood in his urine. Patient states that he has had left sided flank pain and blood in his urine. Patient states that he follows with Dr. Hyatt here at [facility]. Detailed physical exam and review of systems are deferred to the booking manager. Labs ordered. Patient placed back in the waiting room pending room availability and results. Reevaluation(s) Reevaluation #1: CT of the abdomen and pelvis reveals a 7mm stone at the left ureteropelvic junction with mild hydro, cystic lesion within the prostate. His pain is significantly well managed after receiving a single dose of Toradol currently 07/03. At this time feel he would would be appropriate for outpatient follow-up with Urology, I have sent a message through [employer] to Urology on-call, Dr. Schwartz, patient is already prescribed prazosin would not additionally prescribed tamsulosin at this time. She recommends a few days of Toradol every 6-8 hours followed by naproxen. patient was given strict return precautions. All questions were answered. Stable for discharge Medications Administered Discontinued Medications Generic Name Dose Route Start Last Admin Trade Name Freq PRN Reason Stop Dose Admin Insulin Human Lispro 5 unit 11/21/24 19:43 11/21/24 19:57 Insulin Lispro 100 Unit/Ml 3 Ml Vial SUBCUT 11/21/24 19:44 5 unit ONCE ONE Administration Ketorolac Tromethamine 15 mg 11/21/24 19:43 11/21/24 19:57 Ketorolac Tromethamine 15 Mg/Ml Vial IVPUSH 11/21/24 19:44 15 mg ONCE ONE Administration Medical Decision Making Medical Decision Making [facility] Narrative: Patient is a 54-year-old male with past medical history of type 2 diabetes, cirrhosis, ascites, arthritis, anemia, hypertension, hypercholesterolemia, GERD, depression, history of substance use disorder presenting to emergency department for evaluation of flank pain hematuria and dysuria as per HPI. Overall he is well-appearing, nontoxic, afebrile. Without tachycardia and has no hypotension. He has a benign abdominal examination. Has a does however have left CVA tenderness on examination. On review of his medical record it appears as though he had an outpatient CT scan 11/05/2024 which revealed multiple punctate bilateral calculi within the kidneys. I have concern at this time for potential obstructive uropathy/who ureteral calculi. Foul Toradol for at this time mode addition to CT and serum labs for further evaluation. Urinary precipitating injury to suggest a contusion, no apparent hematoma, lower suspicion for any lower rib fracture. No associated diarrhea or constipation hematochezia or melena to suggest diverticulitis benign abdominal examination. May additionally be musculoskeletal in nature. Lumbar spine without palpable tenderness step- offs or deformities, no erythema or warmth, exam findings without concern for clonus syndrome. CBC reveals a mild leukopenia and thrombocytopenia which is chronic in nature. No AJ. Non-anion gap hypoglycemia 553 serum labs were initially obtained, point of care glucose 384 at the time of my evaluation 17:30, normal beta hydroxybutyrate, patient received insulin lispro 5 units subcutaneous. Urinalysis with microscopic hematuria but no evidence of infection. Differential Diagnosis Differential Diagnoses: The differential diagnosis associated with the presentation includes (See narrative above) Admission/Observation Consideration of admission/observation: Escalation of care including admission/observation considered Lab Data MDM Lab Attestation statement: I reviewed the patient's lab results. (See narrative above) 11/21/24 17:36 11/21/24 17:36 Labs: Lab Results 11/21/24 11/21/24 11/21/24 Range/Units 17:36 18:36 18:56 WBC 4.6 L (4.8-10.8) X10*3/uL RBC 4.76 (4.60-5.80) X10*6/uL Hgb 14.1 (14.0-18.0) g/dl Hct 40.5 L (42.0-52.0) % MCV 85.1 (80.0-98.0) fL MCH 29.6 (27.0-33.0) pg MCHC 34.8 (31.0-36.0) g/dl RDW 13.2 (11.0-16.0) % Plt Count 69 L (160-400) X10*3/uL MPV 10.4 (9.4-12.4) fL Immature Gran % (Auto) 0.2 (0.0-0.4) % Neut % (Auto) 61.6 (45-73) % Lymph % (Auto) 26.9 (20-40) % [place] % (Auto) 8.3 (2-11) % Eos % (Auto) 2.6 (0-4) % Baso % (Auto) 0.4 (0-2) % Lymph # (Auto) 1.2 (1.2-4.9) X10*3/uL [place] # (Auto) 0.4 (0.1-1.2) X10*3/uL Eos # (Auto) 0.1 (0.0-0.4) X10*3/uL Baso # (Auto) 0.0 (0.0-0.2) X10*3/uL Abs Immat Gran (auto) 0.01 (0.00-0.03) X10*3/uL Absolute Neuts (auto) 2.8 (2.0-8.3) x10*3/uL Absolute Nucleated RBC 0.000 (0.0-0.012) X10*3/uL Nucleated RBC % (auto) 0.0 (0.0-0.2) /100WBC PT 12.9 H (10.9-12.4) SEC INR 1.1 (0.9-1.1) Sodium 134 L (135-145) mmol/L Potassium 3.8 (3.3-5.1) mmol/L Chloride 104 (96-108) mmol/L Carbon Dioxide 20 L (22-29) mmol/L Anion Gap 14 (12-20) BUN 12 (9-16) mg/dL Creatinine 0.97 (0.5-1.4) mg/dL Estim Creat Clear Calc 96.4 Estimated GFR > 60 POC Glucose (60-115) mg/dL Random Glucose 553 H* (60-115) mg/dL Calcium 9.0 (8.4-10.2) mg/dL Magnesium 1.9 (1.6-2.6) mg/dL Total Bilirubin 1.3 H (0.0-1.0) mg/dL AST 55 H (5-37) U/L ALT 56 H (0-40) U/L Alkaline Phosphatase 211 H (39-117) U/L Total Protein 7.0 (6.5-8.0) g/dL Albumin 3.9 (3.5-5.0) g/dL Beta-Hydroxybutyrate 0.10 (0.02-0.27) mmol/L Urine Color Yellow Urine Appearance Clear Urine pH 6.5 (5.0-9.0) Ur Specific [place] >= 1.030 H (1.005-1.025) Urine Protein Negative (Neg-Trace) mg/dL Urine Glucose (UA) >=1000 H (Negative) mg/dL Urine Ketones Negative (Negative) mg/dL Urine Blood Large (3+) H (Negative) Urine Nitrite Negative (Negative) Ur Leukocyte Esterase Negative (Negative) Urine RBC >20 H (0-2) /HPF Urine WBC 0-5 (0-5) /HPF Ur Squamous Epith Cells 0-2 (0-2) /HPF Urine Bacteria None Seen (None Seen) Hyaline Casts 0-2 (0-2) /LPF Influenza Type A (PCR) NEGATIVE (Negative) Influenza Type B (PCR) NEGATIVE (Negative) RSV RNA Qual (PCR) NEGATIVE (Negative) SARS-CoV-2 RNA (RT-PCR) NEGATIVE (Negative) 11/21/24 11/21/24 Range/Units 19:30 21:16 WBC (4.8-10.8) X10*3/uL RBC (4.60-5.80) X10*6/uL Hgb (14.0-18.0) g/dl Hct (42.0-52.0) % MCV (80.0-98.0) fL MCH (27.0-33.0) pg MCHC (31.0-36.0) g/dl RDW (11.0-16.0) % Plt Count (160-400) X10*3/uL MPV (9.4-12.4) fL Immature Gran % (Auto) (0.0-0.4) % Neut % (Auto) (45-73) % Lymph % (Auto) (20-40) % [place] % (Auto) (2-11) % Eos % (Auto) (0-4) % Baso % (Auto) (0-2) % Lymph # (Auto) (1.2-4.9) X10*3/uL [place] # (Auto) (0.1-1.2) X10*3/uL Eos # (Auto) (0.0-0.4) X10*3/uL Baso # (Auto) (0.0-0.2) X10*3/uL Abs Immat Gran (auto) (0.00-0.03) X10*3/uL Absolute Neuts (auto) (2.0-8.3) x10*3/uL Absolute Nucleated RBC (0.0-0.012) X10*3/uL Nucleated RBC % (auto) (0.0-0.2) /100WBC PT (10.9-12.4) SEC INR (0.9-1.1) Sodium (135-145) mmol/L Potassium (3.3-5.1) mmol/L Chloride (96-108) mmol/L Carbon Dioxide (22-29) mmol/L Anion Gap (12-20) BUN (9-16) mg/dL Creatinine (0.5-1.4) mg/dL Estim Creat Clear Calc Estimated GFR POC Glucose 384 H* 271 H (60-115) mg/dL Random Glucose (60-115) mg/dL Calcium (8.4-10.2) mg/dL Magnesium (1.6-2.6) mg/dL Total Bilirubin (0.0-1.0) mg/dL AST (5-37) U/L ALT (0-40) U/L Alkaline Phosphatase (39-117) U/L Total Protein (6.5-8.0) g/dL Albumin (3.5-5.0) g/dL Beta-Hydroxybutyrate (0.02-0.27) mmol/L Urine Color Urine Appearance Urine pH (5.0-9.0) Ur Specific [place] (1.005-1.025) Urine Protein (Neg-Trace) mg/dL Urine Glucose (UA) (Negative) mg/dL Urine Ketones (Negative) mg/dL Urine Blood (Negative) Urine Nitrite (Negative) Ur Leukocyte Esterase (Negative) Urine RBC (0-2) /HPF Urine WBC (0-5) /HPF Ur Squamous Epith Cells (0-2) /HPF Urine Bacteria (None Seen) Hyaline Casts (0-2) /LPF Influenza Type A (PCR) (Negative) Influenza Type B (PCR) (Negative) RSV RNA Qual (PCR) (Negative) SARS-CoV-2 RNA (RT-PCR) (Negative) Radiology Impression Discussion of test interpretation with radiology: I have reviewed the radiologist's reading. Radiologist Impression: CT abdomen and pelvis without contrast Comparison: None Findings: There is 7 mm stone of the left ureteropelvic junction causing mild fullness of the renal pelvis. Left nephrolithiasis measures up to 3 mm. No right hydronephrosis. Right nephrolithiasis measures up to 4 mm. No bladder stone. No consolidation at the lung bases. No gallstones visible on CT. There is gallbladder wall thickening and trace pericholecystic fluid. Cirrhotic liver. Splenomegaly, measuring 17.6 cm in craniocaudal dimension. 2.3 cm fluid attenuation lesion in midline/posterior aspect of the prostate. The other solid organs are normal. Small hiatal hernia. Duodenal diverticula. No bowel wall thickening or dilation. A normal appendix is identified. Colonic diverticulosis. No aneurysm. Mild calcified atherosclerotic disease. Retroperitoneal and upper abdominal lymph nodes measure up to 1.3 cm in short axis. No ascites. No acute fracture. Impression: 7 mm stone at the left ureteropelvic junction causing mild fullness of the left renal pelvis. Cirrhosis with splenomegaly. Lymphadenopathy of uncertain etiology. Nonemergent workup or follow up is recommended. No gallstones visible on CT. Gallbladder wall thickening with trace pericholecystic fluid is likely secondary to liver pathology. If there is clinical concern for acute cholecystitis further evaluation with a right upper quadrant ultrasound may be helpful. Cystic lesion in the prostate could be mullerian duct cyst or prostatic utricle cyst External Record Review External record reviewed: Outpatient record Chronic Conditions Patient?s care impacted by: Other (See narrative above) Discharge Plan Discharge Clinical Impression: Ureteropelvic junction calculus, Cyst of prostate Patient Disposition: Home, Self-Care Instructions: How to Strain Your Urine (ED), Ureteral Stones (ED) Additional Instructions: You were found to have a 7 mm kidney stone today which is most likely the cause for the pain that you are experiencing. You are being sent home with prescription for pain medicine. First you may use Toradol 10 mg every 6-8 hours for 3 days. Stop taking the Toradol after 3 days then you may take naproxen 500 mg twice a day as needed for pain. do not take additional anti-inflammatory medications such as ibuprofen/Motrin/Advil, Aleve, aspirin while taking Toradol or naproxen. You will need to follow-up with urology, I have provided contact information please call them first thing Saturday morning. Incidentally you were found to have a cyst within your prostate as well, please discussed with urology for further management If you develop new or worsening symptoms or concerns which include but is not limited to severe worsening pain, inability to urinate, blood in your urine, fevers, chills, nausea, vomiting you may return back to emergency department. Prescriptions: New ketorolac 10 mg tablet 10 mg PO Q8H PRN (Reason: pain) 3 Days Qty: 10 0RF Rx Instructions: maximum total duration of 3 days from all oral, or parenteral formulations naproxen 500 mg tablet 500 mg PO BID PRN (Reason: pain) Qty: 10 0RF Rx Instructions: to be taken ONLY after 3 days of toradol, not together No Action ibuprofen 800 mg tablet 800 mg PO Q8H PRN (Reason: pain) 30 Days Qty: 90 0RF spironolactone 25 mg tablet 50 mg PO DAILY 90 Days Qty: 180 1RF Protocol: Hold for SBP< HOLD for SBP < : 90 metformin 500 mg tablet extended release 24 hr 500 mg PO BID Qty: 180 1RF buprenorphine-naloxone 8-2 mg film 8 mg sublingual TID prazosin 2 mg capsule 2 mg PO BEDTIME clonazepam 0.5 mg tablet 0.5 mg PO DAILY PRN (Reason: Anxiety) quetiapine 50 mg tablet 50 mg PO BID (DME) nonslip shower mat See Rx Instructions .Route .MEDSUPPLY Qty: 1 0RF Rx Instructions: As directed (DME) Shower Chair [facility] See Rx Instructions .Route Qty: 1 0RF Rx Instructions: As directed (DME) handheld shower See Rx Instructions .Route .MEDSUPPLY Qty: 1 0RF Rx Instructions: As directed pravastatin 20 mg tablet 20 mg PO BEDTIME 90 Days Qty: 90 1RF cholecalciferol (vitamin D3) 50 mcg (2,000 unit) capsule 50 mcg PO DAILY 90 Days Qty: 90 1RF amlodipine 5 mg tablet 5 mg PO DAILY 90 Days Qty: 90 3RF carvedilol 3.125 mg tablet 3.125 mg PO BID 90 Days Qty: 180 1RF Protocol: Hold for SBP/HR < HOLD for SBP < : 90 HOLD for HR < : 60 furosemide 20 mg tablet 20 mg PO DAILY 90 Days Qty: 90 1RF Protocol: Hold for SBP< HOLD for SBP < : 90 glucose [Dex4 Glucose] 4 gram tablet,chewable 16 g PO Q15M PRN (Reason: hypoglycemia) Qty: 60 1RF Rx Instructions: until symptoms of low blood sugar are controlled hydrocortisone [Anti-Itch (HC)] 1 % cream 1 appl topical TID PRN (Reason: skin irritation) 14 Days Qty: 28.4 1RF (DME) FreeStyle Nyla 3 [place] [facility] See Rx Instructions .ROUTE .MEDSUPPLY Qty: 1 0RF Rx Instructions: as directed (DME) lancets [OneTouch Delica Plus Lancet] 33 gauge [facility] See Rx Instructions .ROUTE .MEDSUPPLY Qty: 200 5RF Rx Instructions: Use as directed to check blood glucose fives times daily. (DME) OneTouch Verio test strips Strip See Rx Instructions .ROUTE .MEDSUPPLY Qty: 200 5RF Rx Instructions: Use as directed to check blood glucose five times daily. (DME) blood-glucose meter [OneTouch Verio Flex meter] [facility] See Rx Instructions .ROUTE .MEDSUPPLY Qty: 1 0RF Rx Instructions: Use as directed to check blood glucose five times daily for type II diabetes. lidocaine 5 % adhesive patch,medicated 1 patch topical DAILY 30 Days Qty: 30 4RF Rx Instructions: leave on most painful area for up to 12 hrs clotrimazole 1 % cream 1 appl topical BID 28 Days Qty: 30 1RF (DME) urinal See Rx Instructions .Route .MEDSUPPLY Qty: 1 0RF Rx Instructions: As directed insulin glargine [Lantus U-100 Insulin] 100 unit/mL solution See Rx Instructions subcut BID Patient Comments: Administer 45 units in the morning and 50 units at night. Rx Instructions: subcutaneously 2 times a day; quetiapine 100 mg tablet PO hydrocortisone 1 % cream with perineal applicator topical (DME) insulin syringe-needle U-100 [BD Insulin Syringe Ultra-Fine] 0.3 mL 31 gauge x 5/16 syringe See Rx Instructions .Route Qty: 100 5RF Rx Instructions: As directed to administer Humalog three times daily (DME) insulin syringe-needle U-100 [BD Insulin Syringe Ultra-Fine] 1 mL 31 gauge x 5/16 syringe See Rx Instructions .Route Qty: 100 5RF Rx Instructions: As directed to administer Lantus insulin once daily. insulin lispro [Humalog U-100 Insulin] 100 unit/mL solution 1 sliding scale dose subcut TID Rx Instructions: Administer 10-25 units per sliding scale 15 minutes before meals. (DME) Ketone Care Strip See Rx Instructions .Route Qty: 100 3RF Rx Instructions: As directed. (DME) FreeStyle Nyla 3 Plus Sensor Device See Rx Instructions .ROUTE .MEDSUPPLY Qty: 2 11RF Rx Instructions: Apply 1 new sensor every 15 days as directed to monitor blood glucose continuously. Referrals: Virgie Schwartz MD [Physician] - Kierra Ulloa MD [Primary Care Provider] - Print Language: Danish
[2024-11-21 17:45] LABS: MANUAL DIFF FLAG NO
[2024-11-21 17:48] LABS: Basophils Percent Auto 0.4 % (0-2); Eosinophils Absolute Auto 0.1 X10*3/uL (0.0-0.4); Eosinophils Percent Auto 2.6 % (0-4); Hematocrit 40.5 % (42.0-52.0); Hemoglobin 14.1 g/dl (14.0-18.0); Imm Gran Abs Auto 0.01 X10*3/uL (0.00-0.03); Imm Gran Pct Auto 0.2 % (0.0-0.4); Lymphocytes Absolute Auto 1.2 X10*3/uL (1.2-4.9); Lymphocytes Percent Auto 26.9 % (20-40); Mean Corpuscular HGB Conc 34.8 g/dl (31.0-36.0); Mean Corpuscular Hemoglobin 29.6 pg (27.0-33.0); Mean Corpuscular Volume 85.1 fL (80.0-98.0); Mean Platelet Volume 10.4 fL (9.4-12.4); Monocytes Absolute Auto 0.4 X10*3/uL (0.1-1.2); Monocytes Percent Auto 8.3 % (2-11); Neutrophils Absolute Auto 2.8 x10*3/uL (2.0-8.3); Neutrophils Percent Auto 61.6 % (45-73); Red Blood Count 4.76 X10*6/uL (4.60-5.80); Red Cell Distribution Width 13.2 % (11.0-16.0); White Blood Count 4.6 X10*3/uL (4.8-10.8)
[2024-11-21 17:51] LABS: Platelet Count 69 X10*3/uL (160-400)
[2024-11-21 17:57] LABS: INTERNATIONAL NORM RATIO 1.1 (0.9-1.1); Prothrombin Time 12.9 SEC (10.9-12.4)
[2024-11-21 18:08] LABS: Alanine Aminotransferase 56 U/L (0-40); Albumin Level 3.9 g/dL (3.5-5.0); Alkaline Phosphatase 211 U/L (39-117); Anion Gap 14 (12-20); Aspartate Amino Transferase 55 U/L (5-37); Bilirubin Total 1.3 mg/dL (0.0-1.0); Blood Urea Nitrogen 12 mg/dL (9-16); Carbon Dioxide 20 mmol/L (22-29); Chloride 104 mmol/L (96-108); Creatinine Clr Calc Pharmacy 96.4; Estimated Glomerular Filt Rate > 60; Glucose Random 553 mg/dL (60-115); Magnesium 1.9 mg/dL (1.6-2.6); Potassium 3.8 mmol/L (3.3-5.1); Sodium 134 mmol/L (135-145)
[2024-11-21 18:22] LABS: Influenza A PCR NEGATIVE (Negative); Influenza B PCR NEGATIVE (Negative); Resp Syncy Virus RNA Qual PCR NEGATIVE (Negative); SARS COV2 PCR INHOUSE NEGATIVE (Negative)
--- NOTE | 2024-11-21 18:40 | PC.NURSE ---
Spoke to patient w/ Sp. interpreter and translator Vanessa, informed patient his POC was >500. Inquired when patient had last checked his sugar. Patient stated that a sugar of 500 is normal for him and he does not care about his diabetes right now that is not why I am here I am here because I am in pain and peeing blood. Informed patient he will need an IV. Patient willing to get IV.
[2024-11-21 19:10] LABS: Appearance Urine Clear; Color Urine Yellow; Glucose Urine UA >=1000 mg/dL (Negative); Leukocyte Esterase Urine Negative (Negative); Nitrite Urine Negative (Negative); PH 6.5 (5.0-9.0); Specific Gravity - Urine >= 1.030 (1.005-1.025); UMIC TRIGGER UACC YES; Urine Blood Large (3+) (Negative); Urine Ketones Negative (Negative); Urine Protein Negative (Neg-Trace)
[2024-11-21 19:26] LABS: Bacteria Urine None Seen (None Seen); Hyaline Casts Urine 0-2 /LPF (0-2); RBC Urine >20 /HPF (0-2); Squamous Epithelial Cell Urine 0-2 /HPF (0-2); WBC Urine 0-5 /HPF (0-5)
[2024-11-21 19:34] VITALS: BP 132/76; PULSE 71; RESP 15; TEMP 36.9; O2SAT 95
[2024-11-21 19:35] LABS: Glucose, Whole Blood 384 mg/dL (60-115)
[2024-11-21] MEDS: Insulin Lispro 100 UNIT/ML 3 ML VIAL SUBCUT (19:57)
[2024-11-21] MEDS: Ketorolac Tromethamine 15 MG/ML VIAL IVPUSH (19:57)
[2024-11-21 21:19] LABS: Glucose, Whole Blood 271 mg/dL (60-115)
[2024-11-21 21:38] VITALS: BP 135/81; PULSE 72; RESP 16; TEMP 36.9; O2SAT 97
== END 2024-11-21 21:40 | disposition home or self-care (01) ==
PROVIDERS: Physician Assistant Medical; Emergency Provider Internal Medicine; PCP Internal Medicine
DX: N13.2 Hydronephrosis with renal and ureteral calculous obstruction (principal); N42.83 Cyst of prostate; D69.6 Thrombocytopenia, unspecified; D72.819 Decreased white blood cell count, unspecified; R30.0 Dysuria; E11.9 Type 2 diabetes mellitus without complications; I10 Essential (primary) hypertension; E78.00 Pure hypercholesterolemia, unspecified; F17.210 Nicotine dependence, cigarettes, uncomplicated; Z03.818 Encounter for observation for suspected exposure to other biological agents ruled out; Z79.02 Long term (current) use of antithrombotics/antiplatelets; Z79.84 Long term (current) use of oral hypoglycemic drugs; Z79.899 Other long term (current) drug therapy
CPT/HCPCS: 0241U; 36415; 74176; 80053; 81001; 82010; 82947; 83735; 85025; 85610; 96374; 99284; J1885

== ENCOUNTER → 2024-11-21 19:43 | Outpatient (BNV) | payer OTHER, SELFPAY | PROVIDERS: Emergency Provider Internal Medicine; PCP Internal Medicine; Visit Provider Radiology Diagnostic Radiology | DX: N20.1 Calculus of ureter (principal) | CPT/HCPCS: 74176 ==

== ENCOUNTER 2024-11-25 13:45 | Outpatient (AMB) | payer OTHER, SELFPAY ==
--- NOTE | 2024-11-25 13:47 | MHC.OFFVIS ---
Intake Visit Reasons: Kidney stones and Prostate cyst Intake Note: Pt presents to the office today as a new patient for kidney stones and prostate cyst. Urology meds: Prazosin Blood thinners:None PVR:0ml Transfer And Pumphouse Operator Chief Required: Yes Transfer And Pumphouse Operator Chief Services: Transfer And Pumphouse Operator Chief Present Transfer And Pumphouse Operator Chief Name: [id number] Allergies lisinopril Adverse Reaction (Intermediate, Verified 11/25/24 14:33) Headache Medication List - Last Reconciled 11/25/24 by JOEL Moura acetone (urine) test (Ketone Care strips) As directed. amlodipine 5 mg PO DAILY 90 days blood sugar diagnostic (Verengo SolarTouch Verio test strips) Use as directed to check blood glucose five times daily. blood-glucose meter (Verengo SolarTouch Verio Flex Meter) Use as directed to check blood glucose five times daily for type II diabetes. blood-glucose sensor (FreeStyle Nyla 3 Plus Sensor device) Apply 1 new sensor every 15 days as directed to monitor blood glucose continuously. blood-glucose,fire safety manager,cont (FreeStyle Nyla 3 [place]) as directed buprenorphine-naloxone 8-2 mg 8 mg sublingual TID carvedilol 3.125 mg See Protocol PO BID 90 days cholecalciferol (vitamin D3) 50 mcg PO DAILY 90 days clonazepam 0.5 mg PO DAILY PRN clotrimazole 1% 1 appl topical BID 4 weeks furosemide 20 mg See Protocol PO DAILY 90 days glucose (Dex4 Glucose) 16 grams (4 x 4 gram) PO Q15M PRN [handheld shower As directed] hydrocortisone 1% topical hydrocortisone 1% (Anti-Itch (hydrocortisone)) 1 appl topical TID PRN 2 weeks ibuprofen 800 mg PO Q8H PRN 30 days insulin glargine (Lantus U-100 Insulin) subcutaneously 2 times a day; insulin lispro (Humalog U-100 Insulin) 1 sliding scale dose subcut TID insulin syringe-needle U-100 (BD Insulin Syringe Ultra-Fine) As directed to administer Humalog three times daily insulin syringe-needle U-100 (BD Insulin Syringe Ultra-Fine) As directed to administer Lantus insulin once daily. ketorolac 10 mg PO Q8H PRN 3 days lancets (Verengo SolarTouch Delica Plus Lancet) Use as directed to check blood glucose fives times daily. lidocaine 5% 1 patch topical DAILY 30 days metformin ER 500 mg PO BID naproxen 500 mg PO BID PRN [nonslip shower mat As directed] pravastatin 20 mg PO BEDTIME 90 days prazosin 2 mg PO BEDTIME quetiapine 50 mg PO BID quetiapine mg PO Shower Chair As directed spironolactone 50 mg See Protocol PO DAILY 90 days [urinal As directed] HPI Comments Details: Vasile is a pleasant 54-year-old Bangladeshi-speaking male patient of Dr. Otto. He has a past medical history of type 2 diabetes, cirrhosis, gastric ulcer, GERD, normocytic anemia, substance abuse, bipolar, depression, hep C, hypercholesteremia, and hypertension. He presents to the office today as a new patient for nephrolithiasis. In discussion with the patient today he reports having seeked emergency room care services for ongoing left-sided flank pain associated with hematuria and dysuria. In review of patient's chart it appears a CT of the abdomen was ordered and performed. These results were reviewed and communicated with the patient today. 11/15 7 mm stone at the left ureterovesical junction causing mild fullness of the left renal pelvis. Cystic lesion in the prostate could be mullerian duct cyst or prostatic utricle cyst per radiology report. He discusses his previous history of nephrolithiasis as a child however never requiring surgical intervention. He does continue to report episodes of left-sided flank pain and does not believe he has passed his kidney stone. We did discussed further interventions to include surveillance monitoring verses ESWL verses ureteroscopy. Risks and benefits of these interventions were discussed. He reports episodes of dysuria and gross hematuria he had been experiencing has since subsided since his ER visit a week ago. In office urinalysis results were reviewed with the patient today. QUYEN was offered however deferred. We discussed obtaining PSA for further assessment evaluation. He denies urinary urgency, urinary frequency, incontinence, nocturia, foul smelling urine, changes to urinary stream, fever, and or chills. He is happy with his current voiding parameters. We discussed worsening symptoms. We also discussed the importance of management and diabetes for improvement overall health and well-being. He otherwise offers no other issues or concerns at this time. [facility] Medical History Type 2 diabetes mellitus with hyperglycemia Cirrhosis Gastric ulcer Portal hypertensive gastropathy GERD (gastroesophageal reflux disease) Normocytic anemia History of substance abuse Bipolar disorder Moderate recurrent major depression HCV (hepatitis C virus) Acid reflux Right knee pain Transaminitis Left knee pain Pure hypercholesterolemia Essential hypertension Diabetes mellitus Surgical History History of abdominal paracentesis Hx of esophagogastroduodenoscopy Family History Father CVD (cardiovascular disease) Diabetes Thyroid disease Maternal Grandmother Diabetes Brother Respiratory failure Asthma Sister No problems noted. Daughter No problems noted. Family/Other Mental health disorder Mother Mental health disorder Essential hypertension Social History Household Members: Family Housing: Apartment Do you presently have visiting nurse or other home services: No Alcohol intake: never Patient Tobacco Use Status: Current everyday Tobacco user Tobacco use type: Cigarette Cigarettes Per Day: 3 Years Smoked: 30 e-Cigarette/Vaping Use: Currently Using Second Hand Smoke Exposure: No Substance Use Type: Former Substance User service: No Current occupational status: unemployed Current occupation: Right Handed Cognitive needs: Yes Hearing needs: No Vision needs: No Review of Systems Const Reports as per HPI Eyes Reports no additional complaints ENT Reports no additional complaints Card Reports as per HPI Resp Reports as per HPI GI Reports as per HPI Reports as per HPI Musc Reports no additional complaints Neuro Reports no additional complaints Psych Reports as per HPI Endo Reports as per HPI Physical Exam Const General: cooperative, healthy appearing, comfortable, no acute distress, well developed, alert and awake Orientation/consciousness: patient oriented x3 Limitations: language barrier HEENT Head: Yes normal to inspection, Yes normocephalic and Yes atraumatic Ears: hearing grossly normal bilaterally Eyes General: appearance normal, both eyes and all related structures Neck Neck: Yes normal visual inspection and Yes trachea midline Chest Chest palpation & inspection: normal inspection of the chest Resp Effort & Inspection: normal respiratory effort and able to speak in complete sentences Cardio Rate: regular rate GI Inspection: Yes normal to inspection General: Yes no CVA tenderness Back/Spine/Pelvis Back: no CVA tenderness Skin General skin exam: no rashes or lesions noted Neuro General: patient oriented x3 Extrem General: Yes normal to inspection Psych Appearance: grossly normal and well kempt Mental Status: mental status grossly normal Speech and movement: Normal speech and movement present and Clear speech present Affect: normal affect Attitude: cooperative Thought process: Normal thought process present Thought content: Normal thought content present Insight: Fair insight present (Psych) Judgement: Fair judgement present (Psych) Office Procedures Post Void Residual Post Residual Void Post Void Residual (PVR): 0 [id number] Void Residual by ultrasound Results AMB Urinalysis, Automated UA Leukoctes 0 Little/uL Last Edit by María Frances CMA on 11/25/24 14:05 UA Nitrite Negative Last Edit by María Frances CMA on 11/25/24 14:05 UA Urobilinogen 3.5 mg/dL Last Edit by María Frances CMA on 11/25/24 14:05 UA Protein 0.3 mg/dL Last Edit by María Frances CMA on 11/25/24 14:05 UA pH 6.0 Last Edit by María Frances CMA on 11/25/24 14:05 UA Blood 200 Amadeo/uL Last Edit by María Frances CMA on 11/25/24 14:05 UA Specific [place] 1.015 Last Edit by María Frances CMA on 11/25/24 14:05 UA Ketone Negative Last Edit by María Frances CMA on 11/25/24 14:05 UA Bilirubin 0 mg/dL Last Edit by María Frances CMA on 11/25/24 14:05 UA Glucose 60 mg/dL Last Edit by María Frances CMA on 11/25/24 14:05 Results Reviewed Results Reviewed: Laboratory Last Values Urine pH (Auto) 6.0 11/25/24 13:52 Specific [place] (Auto) 1.015 11/25/24 13:52 Urine Protein (Auto) 0.3 mg/dL 11/25/24 13:52 Glucose (UA)(Auto) 60 mg/dL 11/25/24 13:52 Urine Ketones (Auto) Negative 11/25/24 13:52 Urine Blood (Auto) 200 Amadeo/uL 11/25/24 13:52 Urine Nitrite (Auto) Negative 11/25/24 13:52 Urine Bilirubin (Auto) 0 mg/dL 11/25/24 13:52 Urine Urobilinogen (Auto) 3.5 mg/dL 11/25/24 13:52 Leukocyte Esterase (Auto) 0 Little/uL 11/25/24 13:52 Date of Service: 11/21/24 Procedure(s): CT abdomen pelvis wo IV con Findings: There is 7 mm stone of the left ureteropelvic junction causing mild fullness of the renal pelvis. Left nephrolithiasis measures up to 3 mm. No right hydronephrosis. Right nephrolithiasis measures up to 4 mm. No bladder stone. No consolidation at the lung bases. No gallstones visible on CT. There is gallbladder wall thickening and trace pericholecystic fluid. Cirrhotic liver. Splenomegaly, measuring 17.6 cm in craniocaudal dimension. 2.3 cm fluid attenuation lesion in midline/posterior aspect of the prostate. The other solid organs are normal. Small hiatal hernia. Duodenal diverticula. No bowel wall thickening or dilation. A normal appendix is identified. Colonic diverticulosis. No aneurysm. Mild calcified atherosclerotic disease. Retroperitoneal and upper abdominal lymph nodes measure up to 1.3 cm in short axis. No ascites. No acute fracture. Impression: 7 mm stone at the left ureteropelvic junction causing mild fullness of the left renal pelvis. Cirrhosis with splenomegaly. Lymphadenopathy of uncertain etiology. Nonemergent workup or follow up is recommended. No gallstones visible on CT. Gallbladder wall thickening with trace pericholecystic fluid is likely secondary to liver pathology. If there is clinical concern for acute cholecystitis further evaluation with a right upper quadrant ultrasound may be helpful. Cystic lesion in the prostate could be mullerian duct cyst or prostatic utricle cyst Assessment & Plan Assessment & Plan (1) Nephrolithiasis: Code(s): N20.0 - Calculus of kidney Category: Medical Plan: Plan Extracorporeal Shock Wave Lithotripsy We discussed the nature of the decision and reasonable alternatives for performing the above surgery. Interventions include chemical dissolution, ESWL, ureteroscopy with laser lithotripsy and stent placement, PCNL. ? Options such as medical therapy were discussed. The relative uncertainties and benefits related to each alternate procedure were adequately discussed. General surgical risks including, but not limited to, pain, bleeding, infection, myocardial infarction, pulmonary embolus, deep vein thrombosis and cerebrovascular accident which may result in further hospitalization were discussed.? Full disclosure of the procedure as well as all major risks, benefits and complications were discussed including but not limited to risks of bleeding, injury to the kidney with hematoma or ashley-hematoma, failure to fragments stone, potential for ureteric obstruction from stone passage and need for secondary procedures.? There is a small long-term risk of hypertension and a question jannet of diabetes.? Success rate of fragmentation and passage is approximately 70- 75%.? This is compared to the risks and benefits for ureteroscopy which has a higher success rate but is a more invasive procedure. The success rate of the procedure was discussed. Success of the procedure in the short-term does not necessarily guarantee that long-term success will be maintained. Suitable follow up will need to be maintained. The patient showed understanding of the discussion as well as the typical recovery time, and the outpatient nature of this procedure. Opportunity was given for questions. Repeat-back protocol used to confirm understanding. They wish to proceed with left ESWL Plan In office urinalysis results with the patient today; as noted above. Recent CT results reviewed with the patient today; as noted above. We discussed further intervention to include surveillance monitoring, ESWL, or ureteroscopy; risks and benefits of these interventions were discussed at length. All questions were answered. Will obtain PSA for further assessment evaluation. We discussed the importance of avoiding blood thinners as well as OTC NSAIDs in relation to upcoming left ESWL We discussed the importance of adequate hydration relation to nephrolithiasis as well as overall health and well-being. Risks and benefits were discussed of ESWL We did discussed potential for clearance given patient's medical history Will schedule for left-sided ESWL as discussed Follow-up per doctor's orders; or sooner with any issues, concerns, and or questions. Orders: Orders AMB Urinalysis Automated Today R35.89 - Other polyuria Prostate Specific Antigen Today N40.0 - Benign prostatic hyperplasia without lower urinary tract symptoms AMB Post Void Residual by ultrasound Today Z13.9 - Encounter for screening, unspecified Medications: New tramadol 50 mg PO Q8H PRN 7 tabs 0RF pain 3 days Discontinued ketorolac maximum total duration of 3 days from all oral, or parenteral formulations Discontinued Reason: Doctor's Order 10 mg PO Q8H 3 days PRN 10 tabs 0RF pain naproxen to be taken ONLY after 3 days of toradol, not together Discontinued Reason: Doctor's Order 500 mg PO BID PRN 10 tabs 0RF pain On Hold ibuprofen Hold Comment: Doctor's Order 800 mg PO Q8H 30 days PRN 90 tabs 0RF pain Patient Instructions: The patient had an opportunity to ask questions regarding the treatment plan. All questions were answered. Physical exam, labs, and imaging were discussed and reviewed in detail. As well as risks, benefits, and discussion of treatment choices. No major barriers to understanding were identified. The patient expressed understanding and agreement with the above treatment plan. The patient was made aware they should contact our office by phone for worsening of their current condition, the appearance of new symptoms, or with any questions or concerns. Compliance is encouraged with any medications and follow up testing that is ordered. It is a privilege to be allowed the opportunity to participate in? your urological care.? Again, if you have any questions or concerns If you have any questions or concerns please do not hesitate to contact me. The office is [phone]. This note is constructed using voice recognition software. While every effort has been made to ensure accuracy fence builder errors may have been included. Yours sincerely, JOEL Moura Coding Level of Care Code New Pt Level 4 (63905) Diagnoses Nephrolithiasis N20.0 CPT Codes Post Residual Void - PVR CPT Code: 75894-Rzhx Void Residual by ultrasound ([id number])
== END 2024-11-25 14:39 | disposition home or self-care (01) ==
LOC: HO.HUSH 13:46
PROVIDERS: PCP Internal Medicine; Visit Provider Nurse Practitioner Family
DX: N20.0 Calculus of kidney (principal); R35.89 Other polyuria
CPT/HCPCS: 99204

== ENCOUNTER → 2024-11-25 13:45 | Outpatient (BNVA) | payer OTHER, SELFPAY | PROVIDERS: PCP Internal Medicine; Visit Provider Nurse Practitioner Family | DX: N20.0 Calculus of kidney (principal); N40.0 Benign prostatic hyperplasia without lower urinary tract symptoms; R35.89 Other polyuria | CPT/HCPCS: 51798; 81003; 99202 ==

== ENCOUNTER 2024-12-04 08:01 | Outpatient (AMB) | payer OTHER, SELFPAY ==
--- NOTE | 2024-12-04 08:05 | A.OFFVIS_ITS ---
Vital Signs 12/04/24 08:16 Height 5 ft 6 in Weight 222 lb 3.615 oz BMI 35.9 BP 134/76 Blood Pressure Location Rt brachial Position Sitting Pulse 95 Pulse Source Pulse Oximeter Pulse Oximetry (%) 97 Oxygen Delivery Method Room Air Intake Visit Reasons: T2DM Intake Note: Patient present today to follow up on Type 2 Diabetes Mellitus. Last Diabetic Eye exam: 11/02/2024 [facility] Last Podiatry Visit: Does not see a Rug Hooker Random Glucose: 400 mg/dl HgA1C: 12.3% 12/04/2024 Typewriter Ribbon Winder Required: Yes Typewriter Ribbon Winder Language: Waredresser Services: Typewriter Ribbon Winder Offered & Declined Accompanied by: Self / Same As Patient Allergies lisinopril Adverse Reaction (Intermediate, Verified 12/04/24 08:09) Headache HPI Comments Details: This is a 54-year-old male with a past medical history of cirrhosis, hepatitis- C, opioid dependence, anemia, bipolar disorder, hyperlipidemia, hypertension and type 2 diabetes presenting for diabetic management. He was diagnosed with Type II DM 30 years ago. Hemoglobin A1c 12.3% today. He does not have his glucometer with him today. Reports he is out of sensors though I sent a year supply to the pharmacy. We will contact the pharmacy. POC is 400. Denies symptoms of hyperglycemia/DKA. Patient says that he did not take short-acting insulin before breakfast but administered 24 units of Humalog 20 minutes ago. Current medication regimen: Metformin extended release 500 mg twice daily, Lantus 55 in the morning and 55 units at bedtime and Humalog per sliding scale: Blood sugar under 150 - do not use humalog Blood sugar 150 to 200 administer 12 units Blood sugar 201-250 administer 18 units Blood sugar 251-300 administer 24 units Blood sugar 301-400 administer 28 units Blood sugar >400 administer 30 units Previous medications: Toujeo caused headaches and was discontinued. He has met with the adult educator. Compliance issues: Patient says his psychiatric issues, stress about his dog who is older and the previous of his impact his ability to manage his diabetes and medication administration. No alcohol. Smokes 1 ppd. Hypoglycemia symptoms: Denies symptoms or episodes since last visit. Hyperglycemia symptoms: Patient says he gets no symptoms unless BG 500+ and then he feels fatigued and confused. ROS: Constitutional: No unexplained weight loss, fever, chills , fatigue or night sweats. Eyes: No vision changes, blurry vision, double vision Respiratory: No shortness of breath Cardiovascular: No chest pain or palpitations. No pedal edema. Neurologic: No headache, dizziness, syncope, unilateral weakness, ataxia, numbness or tingling in the extremities. Skin: No open wounds. Endocrine: No cold or heat intolerance. No polyuria or polydipsia. Physical exam: Constitutional: Alert, in no distress. Head: Normocephalic. Eyes: Pupils are equal, round and reactive to light. Extraocular muscles intact. Neck: Supple, Full range of motion. No lymphadenopathy. No palpable thyroid masses. Respiratory: Clear to auscultation. Cardiovascular: S1 S2 regular. No murmurs. Skin: Warm, dry Extremities: Warm and well perfused, no edema PFSH Medical History Type 2 diabetes mellitus with hyperglycemia Cirrhosis Gastric ulcer Portal hypertensive gastropathy GERD (gastroesophageal reflux disease) Normocytic anemia History of substance abuse Bipolar disorder Moderate recurrent major depression HCV (hepatitis C virus) Acid reflux Right knee pain Transaminitis Left knee pain Pure hypercholesterolemia Essential hypertension Diabetes mellitus Surgical History History of abdominal paracentesis Hx of esophagogastroduodenoscopy Family History Father CVD (cardiovascular disease) Diabetes Thyroid disease Maternal Grandmother Diabetes Brother Respiratory failure Asthma Sister No problems noted. Daughter No problems noted. Family/Other Mental health disorder Mother Mental health disorder Essential hypertension Social History Household Members: Family Housing: Apartment Do you presently have visiting nurse or other home services: No Alcohol intake: never Patient Tobacco Use Status: Current everyday Tobacco user Tobacco use type: Cigarette Cigarettes Per Day: 3 Years Smoked: 30 e-Cigarette/Vaping Use: Currently Using Second Hand Smoke Exposure: No Substance Use Type: Former Substance User service: No Current occupational status: unemployed Current occupation: Right Handed Cognitive needs: Yes Hearing needs: No Vision needs: No Physical Exam Vital Signs: Last Vital Signs Pulse 95 12/04/24 08:16 BP 134/76 12/04/24 08:16 Pulse Ox 97 12/04/24 08:16 Oxygen Delivery Method Room Air 12/04/24 08:16 BMI result Body Mass Index 35.9 Results AMB Hemoglobin A1c AMB Hemoglobin A1c 12.3 % Last Edit by ENIO Black on 12/04/24 08:34 Results Reviewed Results Reviewed: Laboratory Last Values Glucose (Clinic) 400 mg/dL (60-115) H* 12/04/24 08:18 Hgb A1c (Clinic) 12.3 % (4.0-6.0) H 12/04/24 08:21 Laboratory Tests 06/08/24 06/08/24 11:52 11:53 Creatinine 1.31 Estimated GFR 57 Triglycerides 99 Cholesterol 181 LDL Cholesterol, Calc 116 H HDL Cholesterol 46 Vitamin B12 781 Urine Creatinine 29.94 Urine Microalbumin < 5.0 Microalb/Creat Ratio TNP Assessment & Plan Assessment & Plan (1) Type 2 diabetes mellitus with hyperglycemia: Code(s): E11.65 - Type 2 diabetes mellitus with hyperglycemia Category: Medical Qualifiers: Diabetes mellitus fdc insulin use: with fdc use Qualified Code(s): E11.65 - Type 2 diabetes mellitus with hyperglycemia; Z79.4 - prison (current) use of insulin Plan In summary this is a 54-year-old male with uncontrolled type 2 diabetes and cirrhosis of the liver. Discussed pathophysiology of Type II Diabetes Mellitus with the patient in detail.? I explained the technician terminal and repeater risks and complications associated with uncontrolled diabetes including nephropathy, neuropathy, peripheral vascular disease, retinopathy, increased risk of heart disease and stroke.? Diabetic diet reviewed. He met with a dietitian in February of 2024. He is trying to make changes to his diet. He presents with severe hyperglycemia today. Declined testing urine for ketones. Declined insulin AMA. I explained the risk of leaving without treatment including end-organ damage, DKA, coma and . He to continued declined treatment or ER evaluation. I again have concerns that he is not compliant with his medications. At a previous office visit his blood sugar was over 400 and we administered 10 units of Humalog and his blood sugar decreased to 270 over the course of an hour. He is adamant that he is taking his medications. He was asking about starting a GLP 1, but I am very hesitant to do this given history of cirrhosis, ascites, gastritis and varices. Some patients have severe vomiting after administration of the medication which could result in variceal bleeding. He plans to discuss this with his gastroenterology provider. Reports he has an upcoming visit. Continue Metformin extended release 500 mg twice daily, Lantus 55 units twice daily and continue Humalog per sliding scale Blood sugar under 150 - do not use humalog Blood sugar 150 to 200 administer 12 units Blood sugar 200-250 administer 18 units Blood sugar 250-300 administer 24 units Blood sugar 300-400 administer 28 units Blood sugar >400 administer 30 units We discussed risks of DKA with high blood sugar. He has ketone urine strips and has been given written instructions on when to test and signs and symptoms of DKA. Reviewed proper treatment of hypoglycemia and hyperglycemia. I will review further recommendations with my colleague and have the patient follow up with an MD since he is very uncontrolled on over 100 units basal now. Orders: Orders AMB Hemoglobin A1c Today E11.65 - Type 2 diabetes mellitus with hyperglycemia, Z79.4 - terminal carman (current) use of insulin Medications: Changed From insulin syringe-needle U-100 (BD Insulin Syringe Ultra-Fine) As directed to administer Lantus insulin once daily. 100 ea 5RF To insulin syringe-needle U-100 As directed to administer Lantus insulin once daily. 100 ea 5RF From insulin syringe-needle U-100 (BD Insulin Syringe Ultra-Fine) As directed to administer Humalog three times daily 100 ea 5RF E11.65 - Type 2 diabetes mellitus with hyperglycemia, Z79.4 - prison (current) use of insulin To insulin syringe-needle U-100 As directed to administer Humalog three times daily 100 ea 5RF E11.65 - Type 2 diabetes mellitus with hyperglycemia, Z79.4 - terminal carman (current) use of insulin Coding Level of Care Code Est Pt Level 4 (05084) Complex EM visit Add On G2211 Diagnoses Type 2 diabetes mellitus with hyperglycemia, with long-term current use of insulin E11.65; Z79.4 Diabetes mellitus technician terminal and repeater insulin use: with technician terminal and repeater use
[2024-12-04 08:16] VITALS: BP 134/76; PULSE 95; O2SAT 97; BMI 35.9
[2024-12-04 08:22] LABS: Glucose, Whole Blood 400 mg/dL (60-115)
== END 2024-12-04 09:01 | disposition home or self-care (01) ==
LOC: HO.ENCR 08:02
PROVIDERS: PCP Internal Medicine; Visit Provider Physician Assistant Medical
DX: E11.65 Type 2 diabetes mellitus with hyperglycemia (principal); Z79.4 Long term (current) use of insulin

== ENCOUNTER → 2024-12-04 08:01 | Outpatient (BNVA) | payer OTHER, SELFPAY | PROVIDERS: PCP Internal Medicine; Visit Provider Physician Assistant Medical | DX: E11.65 Type 2 diabetes mellitus with hyperglycemia (principal); K74.60 Unspecified cirrhosis of liver; Z79.4 Long term (current) use of insulin | CPT/HCPCS: 82947; 83036; 99212 ==

== ENCOUNTER → 2024-12-09 07:39 | Day surgery (SDC) | payer OTHER, SELFPAY ==
[2024-12-07 15:59] VITALS: BMI 36.3
[2024-12-07 16:27] VITALS: BMI 36.2
--- NOTE | 2024-12-08 12:26 | HO.ANESPROP2 ---
HPI - Anesthesia Eval Consult details Narrative: 54yo M for Left Lithotripsy ESW Follows [facility] for compensated cirrhosis (untreated HCV). Last office visit 05/2024: 1/ Cirrhosis, with ascites and variceal bleeding decompensated due to NSAID use now seems to be compensated with avoidance of nsaid and no ascites --MELD na--9 2/ Gastric ulcer--resolved--h pylori was negative in the past 3/ Variceal bleeding, s/p banding 4/ Ascites--resolved, but strangely still has varices Plts low at 69 Has GI f/u planned for 12/14/24 Uncontrolled DM with A1C 12.5 Suboxone daily PMFSH Active Problems Active Problems: All Active Problems (Updated 11/25/24 @ 14:48 by JOEL Moura) Nephrolithiasis (Acute) Polyuria (Acute) Skin lesion (Acute) Post-traumatic osteoarthritis of left knee (Acute) Opioid dependence on agonist therapy (Acute) Pre-op evaluation (Acute) Hospital discharge follow-up (Acute) NSAID long-term use (Acute) Abdominal ascites (Acute) Acute lower gastrointestinal bleeding (Acute) Physical exam (Acute) Anemia (Acute) Hypovitaminosis D (Acute) Arthritis of both knees (Acute) Patellofemoral pain syndrome of both knees (Acute) Type 2 diabetes mellitus with hyperglycemia (Acute) Cirrhosis (Acute) History of substance abuse (Acute) Bipolar disorder (Acute) Moderate recurrent major depression (Acute) Acid reflux (Acute) Right knee pain (Acute) Transaminitis (Acute) Left knee pain (Acute) Diabetes mellitus (Acute) Pure hypercholesterolemia (Acute) Essential hypertension (Acute) Past Medical History Medical History (Updated 11/25/24 @ 14:48 by JOEL Moura) Type 2 diabetes mellitus with hyperglycemia Cirrhosis Portal hypertensive gastropathy GERD (gastroesophageal reflux disease) Gastric ulcer Normocytic anemia History of substance abuse Bipolar disorder Moderate recurrent major depression HCV (hepatitis C virus) Acid reflux Right knee pain Transaminitis Left knee pain Pure hypercholesterolemia Essential hypertension Diabetes mellitus Family History Family History Father CVD (cardiovascular disease) Diabetes Thyroid disease Maternal Grandmother Diabetes Brother Respiratory failure Asthma Sister No problems noted. Daughter No problems noted. Family/Other Mental health disorder Mother Mental health disorder Essential hypertension Family history of problems with anesthesia: No Surgical History Surgical History (Updated 12/07/24 @ 16:27 by Joana Camejo RN) Hx of esophagogastroduodenoscopy (08/2023) History of abdominal paracentesis (06/2023) History of Problems with Anesthesia: No Social History Social History (Updated 12/07/24 @ 16:32 by Joana Camejo RN) Household Members: Family Housing: Apartment Are you a primary manager medicare marketing to a significant other at home: No Do you presently have visiting nurse or other home services: No Alcohol intake: never Patient Tobacco Use Status: Current everyday Tobacco user Tobacco use type: Cigarette Cigarettes Per Day: 10 Years Smoked: 30 e-Cigarette/Vaping Use: Currently Using Second Hand Smoke Exposure: No Substance Use Type: Former Substance User Substance Use Type Other:: on Suboxone 16 years service: No Current occupational status: unemployed Current occupation: Right Handed Cognitive needs: Yes Hearing needs: No Vision needs: No Meds Allergies Allergy/AdvReac Type Severity Reaction Status Date / Time lisinopril AdvReac Intermediate Headache Verified 12/04/24 08:09 Home Medications ?Medication ?Instructions ?Recorded ?Confirmed ?Last Taken ?Type clonazepam 0.5 mg tablet 0.5 mg PO DAILY PRN Anxiety 08/15/21 12/07/24 Unknown History quetiapine 50 mg tablet 50 mg PO BID 08/15/21 12/07/24 Unknown History buprenorphine 8 mg-naloxone 2 mg 8 mg sublingual TID 10/09/22 12/07/24 09/10/23 History sublingual film prazosin 2 mg capsule 2 mg PO BEDTIME 10/09/22 12/07/24 Unknown History hydrocortisone 1 % topical cream topical 09/06/23 12/04/24 Unknown History with perineal applicator quetiapine 100 mg tablet mg PO 09/06/23 12/04/24 Unknown History insulin glargine 100 unit/mL 55 unit subcut BID 12/04/24 12/07/24 Unknown History subcutaneous solution (Lantus U-100 Insulin) insulin lispro 100 unit/mL 1 sliding scale dose subcut TID 12/04/24 12/07/24 Unknown History subcutaneous solution (Humalog U-100 Insulin) Exam Height,Weight and Vital Signs: Height 5 ft 6 in Weight 101.605 kg Pertinent Lab Results Pertinent Lab Results: Laboratory Tests 11/21/24 17:36 WBC 4.6 L Hgb 14.1 Hct 40.5 L Plt Count 69 L Sodium 134 L Potassium 3.8 Chloride 104 Carbon Dioxide 20 L BUN 12 Creatinine 0.97 Laboratory Tests 11/21/24 17:36 PT 12.9 H INR 1.1 Narrative Narrative: Abd/Pelvis CT 10/2024 Impression: 7 mm stone at the left ureteropelvic junction causing mild fullness of the left renal pelvis. Cirrhosis with splenomegaly. Lymphadenopathy of uncertain etiology. Nonemergent workup or follow up is recommended. No gallstones visible on CT. Gallbladder wall thickening with trace pericholecystic fluid is likely secondary to liver pathology. If there is clinical concern for acute cholecystitis further evaluation with a right upper quadrant ultrasound may be helpful. Cystic lesion in the prostate could be mullerian duct cyst or prostatic utricle cyst Assessment and Plan Final Anesthetic Review Family History of Problems with Anesthesia: No History of Problems with Anesthesia: No
--- NOTE | ~2024-12-09 | XR_ITS ---
EXAMINATION: XR ABDOMEN KUB CLINICAL INDICATION: left renal stone COMPARISON: CT abdomen pelvis 11/21/2024. TECHNIQUE: AP view of the abdomen. FINDINGS: Bowel gas pattern is normal/nonspecific. There is no focally dilated loop. There is no significant stool burden. Overlying the mid left kidney, there is a 6 mm calcification suspicious for renal stone. There are smaller 2-3 mm calcific densities in the lower pole. There are approximately 5 total calcifications identified. Stool obscures the right renal shadow to a large degree. There are probable small right renal calculi as well. No organomegaly. No large abdominal mass. Levoconvex mild thoracolumbar scoliosis with degenerative changes. Mild to moderate degenerative changes in both hip joints and SI joints. XR/XR KUB IMPRESSION: 1. Bilateral nephrolithiasis suspected. Largest calculus is a 6 mm calcification in the hilum of the left kidney. Electronically signed by: Parish Pham MD 12/09/2024 08:19 AM EDT
== END ==
LOC: HO.SSS 07:40
PROVIDERS: PCP Internal Medicine; Visit Provider Urology
DX: N20.0 Calculus of kidney (principal); Z53.8 Procedure and treatment not carried out for other reasons
CPT/HCPCS: 74018

== ENCOUNTER → 2024-12-09 08:30 | Outpatient (BNV) | payer OTHER, SELFPAY | PROVIDERS: PCP Internal Medicine; Visit Provider Radiology Diagnostic Radiology | DX: N20.0 Calculus of kidney (principal) | CPT/HCPCS: 74018 ==

== ENCOUNTER 2024-12-09 08:51 | Outpatient (REF) | payer OTHER, SELFPAY ==
[2024-12-09 09:10] LABS: MANUAL DIFF FLAG NO
[2024-12-09 09:57] LABS: Basophils Percent Auto 0.6 % (0-2); Eosinophils Absolute Auto 0.2 X10*3/uL (0.0-0.4); Eosinophils Percent Auto 3.7 % (0-4); Hematocrit 41.2 % (42.0-52.0); Hemoglobin 14.4 g/dl (14.0-18.0); Imm Gran Abs Auto 0.02 X10*3/uL (0.00-0.03); Imm Gran Pct Auto 0.4 % (0.0-0.4); Lymphocytes Absolute Auto 1.4 X10*3/uL (1.2-4.9); Lymphocytes Percent Auto 28.4 % (20-40); Mean Corpuscular Hemoglobin 29.4 pg (27.0-33.0); Mean Corpuscular Volume 84.3 fL (80.0-98.0); Mean Platelet Volume 10.2 fL (9.4-12.4); Monocytes Absolute Auto 0.4 X10*3/uL (0.1-1.2); Monocytes Percent Auto 7.3 % (2-11); Neutrophils Percent Auto 59.6 % (45-73); Red Blood Count 4.89 X10*6/uL (4.60-5.80); Red Cell Distribution Width 13.4 % (11.0-16.0); White Blood Count 5.1 X10*3/uL (4.8-10.8)
[2024-12-09 09:58] LABS: Platelet Count 87 X10*3/uL (160-400)
[2024-12-09 10:25] LABS: Alanine Aminotransferase 54 U/L (0-40); Albumin Level 4.2 g/dL (3.5-5.0); Alkaline Phosphatase 216 U/L (39-117); Anion Gap 10 (12-20); Aspartate Amino Transferase 44 U/L (5-37); Bilirubin Total 1.4 mg/dL (0.0-1.0); Blood Urea Nitrogen 7 mg/dL (9-16); Calcium 9.4 mg/dL (8.4-10.2); Carbon Dioxide 26 mmol/L (22-29); Chloride 111 mmol/L (96-108); Cholesterol 194 mg/dL (<200); Estimated Glomerular Filt Rate > 60; Glucose Fasting 138 mg/dL (60-99); HDL Cholesterol 46 mg/dL (>40); Iron 63 mcg/dL (45-160); LDL Cholesterol Calculated 125 mg/dL (<100); Percent Iron Saturation 22 % (15-50); Potassium 3.6 mmol/L (3.3-5.1); Sodium 143 mmol/L (135-145); Total Iron Binding Capacity 283 mcg/dL (228-428); Total Protein 7.2 g/dL (6.5-8.0); Triglycerides 116 mg/dL (<150); Unsaturated Iron Binding 220 ug/dL
[2024-12-09 10:29] LABS: Creatinine Urine 281.52 mg/dL; Microalbum/Creatinine Ratio Ur 13.4 ug/mg cr (<30)
[2024-12-09 10:58] LABS: Folate 11.6 ng/mL (> or = 4.0); Vitamin B12 798 pg/mL (200-900)
== END 2024-12-09 08:52 | disposition home or self-care (01) ==
LOC: HO.LAB 08:51
PROVIDERS: Absent Provider Internal Medicine Gastroenterology; PCP Internal Medicine; Visit Provider Internal Medicine
DX: R80.9 Proteinuria, unspecified (principal); E55.9 Vitamin D deficiency, unspecified; E78.5 Hyperlipidemia, unspecified; D64.9 Anemia, unspecified; E53.8 Deficiency of other specified B group vitamins; E11.65 Type 2 diabetes mellitus with hyperglycemia; Z79.4 Long term (current) use of insulin
CPT/HCPCS: 36415; 80053; 80061; 82043; 82306; 82570; 82607; 82746; 83540; 85025

== ENCOUNTER 2024-12-14 08:42 | Outpatient (AMB) | payer OTHER, SELFPAY ==
[2024-12-14 08:53] VITALS: BP 146/76; PULSE 94; BMI 35.2
--- NOTE | 2024-12-14 08:53 | A.OFFVIS_ITS ---
Vital Signs 12/14/24 08:53 Height 5 ft 6 in Weight 218 lb 4.122 oz BMI 35.2 BP 146/76 H Blood Pressure Location Lt brachial Position Sitting Pulse 94 Intake Visit Reasons: 6 months f/u Intake Note: Vasiel presents in the office as a 6 month follow up. CC: States he is waiting to know if he needs gall stones removed. He thought he had an issue with the schedule for his colonoscopy. He was told it was not on the schedule the day of the appt. 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 Allergies lisinopril Adverse Reaction (Intermediate, Verified 12/14/24 08:54) Headache HPI HPI 6 months f/u: Details: 54-year-old male, with hx of HCV-treated, bipolar d/o, chronic knee pain, DM, HTN< and HLP who I am seeing for f/u for ascites and anemia due to cirrhosis RECAP: I had seen pt 09/2022 for melena, abdominal distention and abdominal pain denied history of alcohol abuse He had been taking ibuprofen q6 h for few years due to chronic knee pain, and is unsure if taking any PPI Patient had a diagnostic paracentesis which was negative for SBP, Admitted 08/17 with GI bleed and had EGD with banding Imaging: Abdomen pelvic CT 09/2022: cirrhosis with diffuse ascites, prominent collateral vessels, US 07/17-- neg for ascites, not needed paracentesis CT 10/2023-- cirrhosis, no liver masses CT imaging 11/15- cirrhosis, SCOPES: EGD -01/2019--erosive gastritis, duodenitis and esophagitis. EGD- 09/2022--varices--banded, gastric ulcer EGD, colo --healed ulcer, varices grade II-not re banded, EGD 08/17 -- large varices, banded EGD 08/31/23-- varices--banded INTERIM: he is needing urological surgery but he needs cleared first for varices also he has low plts so needs that addressed as well no abdominal pain right now no n/v denies alcohol use, no smoking wondrering if can get GLP 1 EXAM: GENERAL: The patient is well developed and nontoxic. VITAL SIGNS:see workflow HEENT: Nonicteric sclerae, PERRLA, EOMI. Oropharynx clear. Moist mucous membranes. Conjunctivae appear well perfused. No thyroid mass. CHEST: Chest wall is nontender. HEART: Regular rate and rhythm without murmurs. LUNGS: Clear to auscultation bilaterally. ABDOMEN: Soft, positive bowel sounds, nontender, no organomegaly.no flank tenderness--no shifting dullness SKIN: No rash, no excessive bruising, petechiae, or purpura. NEUROLOGIC: Cranial nerves II-XII intact without motor/sensory deficit. psych--nml A/P; 1/ Cirrhosis, with ascites and variceal bleeding decompensated due to NSAID use now seems to be compensated with avoidance of nsaid and no ascites --MELD na--9 2/ Gastric ulcer--resolved--h pylori was negative in the past 3/ Variceal bleeding, s/p banding 4/ Ascites--resolved, but strangely still has varices PLAN: 1/ Ascites--resolved, avodi nsaid, lo salt diet, cont with aldactone 2/ HE--no evidence of overt disease 3/ Varices- bleeding, rept EGD --needs this--to take half dose of lantus night before-- 4/ HCC screen---US now 5/ colo screening with suprep at time if EGD 6/ if ongoing varices then maybe TIPS 7/ Plts > 50-- check with urology target they need, can consider doptelet or plt infusion near the time of surgery 8/ ok to have GLP-1--would start with low dose and titrate up gradually, may prevent progression of cirrhosis due to metabolic syndrome [facility] Medical History (Updated 11/25/24 @ 14:48 by Rachael Palmer [facility]) Type 2 diabetes mellitus with hyperglycemia Cirrhosis Portal hypertensive gastropathy GERD (gastroesophageal reflux disease) Gastric ulcer Normocytic anemia History of substance abuse Bipolar disorder Moderate recurrent major depression HCV (hepatitis C virus) Acid reflux Right knee pain Transaminitis Left knee pain Pure hypercholesterolemia Essential hypertension Diabetes mellitus Surgical History (Updated 12/07/24 @ 16:27 by Joana Camejo RN) Hx of esophagogastroduodenoscopy (08/2023) History of abdominal paracentesis (06/2023) Family History Father CVD (cardiovascular disease) Diabetes Thyroid disease Maternal Grandmother Diabetes Brother Respiratory failure Asthma Sister No problems noted. Daughter No problems noted. Family/Other Mental health disorder Mother Mental health disorder Essential hypertension Social History (Updated 12/07/24 @ 16:32 by Joana Camejo RN) Household Members: Family Housing: Apartment Are you a primary wound care rn to a significant other at home: No Do you presently have visiting nurse or other home services: No Alcohol intake: never Patient Tobacco Use Status: Current everyday Tobacco user Tobacco use type: Cigarette Cigarettes Per Day: 3 Years Smoked: 30 e-Cigarette/Vaping Use: Currently Using Second Hand Smoke Exposure: No Substance Use Type: Former Substance User service: No Current occupational status: unemployed Current occupation: Right Handed Cognitive needs: Yes Hearing needs: No Vision needs: No Physical Exam Vital Signs: Last Vital Signs Pulse 94 12/14/24 08:53 BP 146/76 H 12/14/24 08:53 BMI result Body Mass Index 35.2 Assessment & Plan Assessment & Plan (1) Cirrhosis: Code(s): K74.60 - Unspecified cirrhosis of liver Category: Medical Qualifiers: Hepatic cirrhosis type: unspecified hepatic cirrhosis Ascites presence: with ascites Qualified Code(s): K74.60 - Unspecified cirrhosis of liver; R18.8 - Other ascites Plan: as above Orders: Orders US abdomen quan w elastography Today K74.60 - Unspecified cirrhosis of liver, K75.81 - Nonalcoholic steatohepatitis (KEYS) Medications: New sodium,potassium,mag sulfates 17.5-3.13-1.6 gram (Suprep Bowel Prep Kit) DILUTE; drink 1/2 at 6-8 pm and half at 11 PM- 1AM 354 mL 0RF Coding Level of Care Code Est Pt Level 4 (33537) Diagnoses Cirrhosis of liver with ascites, unspecified hepatic cirrhosis type K74.60; R18.8 Hepatic cirrhosis type: unspecified hepatic cirrhosis Ascites presence: with ascites
== END 2024-12-14 09:29 | disposition home or self-care (01) ==
LOC: HO.HGI 08:43
PROVIDERS: PCP Internal Medicine; Visit Provider Internal Medicine Gastroenterology
DX: K74.60 Unspecified cirrhosis of liver (principal); R18.8 Other ascites
CPT/HCPCS: 99214

== ENCOUNTER → 2024-12-14 08:42 | Outpatient (BNVA) | payer OTHER, SELFPAY | PROVIDERS: PCP Internal Medicine; Visit Provider Internal Medicine Gastroenterology | DX: K74.60 Unspecified cirrhosis of liver (principal); R18.8 Other ascites; D63.8 Anemia in other chronic diseases classified elsewhere | CPT/HCPCS: 99212 ==

== ENCOUNTER → 2024-12-22 11:41 | Day surgery (SDC) | payer OTHER, SELFPAY ==
[2024-12-18 12:42] VITALS: BMI 35.8
--- NOTE | 2024-12-21 13:05 | HO.ANESPROP2 ---
Documented by User: Aniyah Bell NP 12/21/24 13:11 HPI - Anesthesia Eval Consult details Narrative: 54yo M for EGD and [place] (Pt awaiting GI clear for ESWL with Dr Wright) Follows [facility] for compensated cirrhosis (untreated HCV). 1/ Cirrhosis, with ascites and variceal bleeding decompensated due to NSAID use now seems to be compensated with avoidance of nsaid and no ascites --MELD na--9 2/ Gastric ulcer--resolved--h pylori was negative in the past 3/ Variceal bleeding, s/p banding 4/ Ascites--resolved, but strangely still has varices Plts low at 87 12/09/24 Uncontrolled DM with A1C 12.5 Suboxone daily PMFSH Active Problems Active Problems: All Active Problems Nephrolithiasis (Acute) Polyuria (Acute) Skin lesion (Acute) Post-traumatic osteoarthritis of left knee (Acute) Opioid dependence on agonist therapy (Acute) Pre-op evaluation (Acute) Hospital discharge follow-up (Acute) NSAID long-term use (Acute) Abdominal ascites (Acute) Acute lower gastrointestinal bleeding (Acute) Physical exam (Acute) Anemia (Acute) Hypovitaminosis D (Acute) Arthritis of both knees (Acute) Patellofemoral pain syndrome of both knees (Acute) Type 2 diabetes mellitus with hyperglycemia (Acute) Cirrhosis (Acute) History of substance abuse (Acute) Bipolar disorder (Acute) Moderate recurrent major depression (Acute) Acid reflux (Acute) Right knee pain (Acute) Transaminitis (Acute) Left knee pain (Acute) Diabetes mellitus (Acute) Pure hypercholesterolemia (Acute) Essential hypertension (Acute) Past Medical History Medical History Type 2 diabetes mellitus with hyperglycemia Cirrhosis Portal hypertensive gastropathy GERD (gastroesophageal reflux disease) Gastric ulcer Normocytic anemia History of substance abuse Bipolar disorder Moderate recurrent major depression HCV (hepatitis C virus) Acid reflux Right knee pain Transaminitis Left knee pain Pure hypercholesterolemia Essential hypertension Diabetes mellitus Family History Family History Father CVD (cardiovascular disease) Diabetes Thyroid disease Maternal Grandmother Diabetes Brother Respiratory failure Asthma Sister No problems noted. Daughter No problems noted. Family/Other Mental health disorder Mother Mental health disorder Essential hypertension Family history of problems with anesthesia: No Surgical History Surgical History H/O colonoscopy Hx of esophagogastroduodenoscopy (08/2023) History of abdominal paracentesis (06/2023) History of Problems with Anesthesia: No Social History Social History Household Members: Family Housing: Apartment Are you a primary gericare aide to a significant other at home: No Do you presently have visiting nurse or other home services: No Alcohol intake: never Patient Tobacco Use Status: Current everyday Tobacco user Tobacco use type: Cigarette Cigarettes Per Day: 3 Years Smoked: 30 Smoked in Last 30 Days: Yes e-Cigarette/Vaping Use: Currently Using Frequency of e-Cigarette/Vaping Use: 1 pack every 2-3 days Second Hand Smoke Exposure: No Use of substances other than those prescribed or required for medical reasons: No Substance Use Type: Former Substance User Have you been hit, kicked, punched, or otherwise hurt by someone within the past year? If so, by whom?: No Are you DNR?: No Advance Directives: No Advance Directives Information Provided: Yes service: No Current occupational status: unemployed Current occupation: Right Handed Cognitive needs: Yes Hearing needs: No Vision needs: No Meds Allergies Allergy/AdvReac Type Severity Reaction Status Date / Time lisinopril AdvReac Intermediate Headache Verified 12/22/24 12:08 Home Medications ?Medication ?Instructions ?Recorded ?Confirmed ?Last Taken ?Type clonazepam 0.5 mg tablet 0.5 mg PO DAILY PRN Anxiety 08/15/21 12/18/24 Unknown History quetiapine 50 mg tablet 50 mg PO BID 08/15/21 12/22/24 Unknown History buprenorphine 8 mg-naloxone 2 mg 8 mg sublingual TID 10/09/22 12/18/24 09/10/23 History sublingual film prazosin 2 mg capsule 2 mg PO BEDTIME 10/09/22 12/22/24 Unknown History hydrocortisone 1 % topical cream 1 appl topical DAILY 09/06/23 12/22/24 Unknown History with perineal applicator quetiapine 100 mg tablet 100 mg PO BID 09/06/23 12/22/24 Unknown History trazodone 100 mg tablet 100 mg PO DAILY 12/14/24 12/22/24 Unknown History Humalog U-100 Insulin 12/22/24 12/22/24 06:00 History insulin glargine 100 unit/mL 75 unit subcut BEDTIME 12/22/24 12/22/24 12/22/24 06:00 History subcutaneous solution (Lantus U-100 Insulin) Exam Height,Weight and Vital Signs: Height 5 ft 6 in Weight 100.698 kg Pertinent Lab Results Pertinent Lab Results: Laboratory Tests 12/09/24 09:09 WBC 5.1 Hgb 14.4 Hct 41.2 L Plt Count 87 L D Sodium 143 Potassium 3.6 Chloride 111 H Carbon Dioxide 26 BUN 7 L Creatinine 0.74 Laboratory Tests 11/21/24 17:36 PT 12.9 H INR 1.1 Narrative Narrative: EKG 2023. Rate : 104 BPM Atrial Rate : 104 BPM P-R Int : 138 ms QRS Dur : 088 ms QT Int : 360 ms P-R-T Axes : -10 -28 025 degrees QTc Int : 473 ms Sinus tachycardia Minimal voltage criteria for LVH, may be normal variant ( Odin product ) Borderline ECG No significant changes when compared with the previous EKG of 14 january 2013 Assessment and Plan Assessment Anesthesia Assessment: Chart Reviewed Final Anesthetic Review Family History of Problems with Anesthesia: No History of Problems with Anesthesia: No Documented by User: Jenae Lazcano MD 12/22/24 13:25 [facility] Past Medical History Medical History Type 2 diabetes mellitus with hyperglycemia Cirrhosis Portal hypertensive gastropathy GERD (gastroesophageal reflux disease) Gastric ulcer Normocytic anemia History of substance abuse Bipolar disorder Moderate recurrent major depression HCV (hepatitis C virus) Acid reflux Right knee pain Transaminitis Left knee pain Pure hypercholesterolemia Essential hypertension Diabetes mellitus Family History Family History Father CVD (cardiovascular disease) Diabetes Thyroid disease Maternal Grandmother Diabetes Brother Respiratory failure Asthma Sister No problems noted. Daughter No problems noted. Family/Other Mental health disorder Mother Mental health disorder Essential hypertension Surgical History Surgical History H/O colonoscopy Hx of esophagogastroduodenoscopy (08/2023) History of abdominal paracentesis (06/2023) Social History Social History Household Members: Family Housing: Apartment Are you a primary gericare aide to a significant other at home: No Do you presently have visiting nurse or other home services: No Alcohol intake: never Patient Tobacco Use Status: Current everyday Tobacco user Tobacco use type: Cigarette Cigarettes Per Day: 3 Years Smoked: 30 Smoked in Last 30 Days: Yes e-Cigarette/Vaping Use: Currently Using Frequency of e-Cigarette/Vaping Use: 1 pack every 2-3 days Second Hand Smoke Exposure: No Use of substances other than those prescribed or required for medical reasons: No Substance Use Type: Former Substance User Have you been hit, kicked, punched, or otherwise hurt by someone within the past year? If so, by whom?: No Are you DNR?: No Advance Directives: No Advance Directives Information Provided: Yes service: No Current occupational status: unemployed Current occupation: Right Handed Cognitive needs: Yes Hearing needs: No Vision needs: No Meds Allergies Allergy/AdvReac Type Severity Reaction Status Date / Time lisinopril AdvReac Intermediate Headache Verified 12/22/24 12:08 Home Medications ?Medication ?Instructions ?Recorded ?Confirmed ?Last Taken ?Type clonazepam 0.5 mg tablet 0.5 mg PO DAILY PRN Anxiety 08/15/21 12/18/24 Unknown History quetiapine 50 mg tablet 50 mg PO BID 08/15/21 12/22/24 Unknown History buprenorphine 8 mg-naloxone 2 mg 8 mg sublingual TID 10/09/22 12/18/24 09/10/23 History sublingual film prazosin 2 mg capsule 2 mg PO BEDTIME 10/09/22 12/22/24 Unknown History hydrocortisone 1 % topical cream 1 appl topical DAILY 09/06/23 12/22/24 Unknown History with perineal applicator quetiapine 100 mg tablet 100 mg PO BID 09/06/23 12/22/24 Unknown History trazodone 100 mg tablet 100 mg PO DAILY 12/14/24 12/22/24 Unknown History Humalog U-100 Insulin 12/22/24 12/22/24 06:00 History insulin glargine 100 unit/mL 75 unit subcut BEDTIME 12/22/24 12/22/24 12/22/24 06:00 History subcutaneous solution (Lantus U-100 Insulin) Exam Airway Mallampati Class: III TM Dist: >3cm Neck ROM: Full Loose/Missing/Broken Teeth: Yes, Upper and Lower Heart: RRR Lungs: CTA Assessment and Plan Assessment Anesthesia Assessment: Anesthesia Plan Discussed Final Anesthetic Review NPO: Yes ASA Class: III Final Preanesthetic Review: Meds/Allgs Chart Reviewed, Consent Obtained/Reviewed and Anes Risks/Benef Reviewed Patient Risk: Intermediate Procedure Risk: Intermediate Anesthetic Plan Anesthetic Plan: MAC: Disposition: Standard PACU
[2024-12-22 11:51] VITALS: BMI 35.4
[2024-12-22 12:12] LABS: Glucose, Whole Blood 146 mg/dL (60-115)
[2024-12-22 12:31] VITALS: BP 128/77; PULSE 93; RESP 17; TEMP 37; O2SAT 95
[2024-12-22 12:33] LABS: Cannabinoid Screen Urine Not Detected (Not Detect)
[2024-12-22] MEDS: Lactated Ringers 1,000 ML 100 ML IVCONT (12:33)
--- NOTE | 2024-12-22 13:30 | MHC.SHP ---
Pre-Procedural Eval Section A - 24 Hr Update-Section A only Date of Service: 12/22/24 The patient is an INPATIENT: No The patient has been examined within 24 hours of the surgical procedure. The History & Physical has been completed within 30 days and I have reviewed it.: Yes Section B - Complete if H&P > 30 days Chief Complaint: Unspecified cirrhosis of liver,Other ascites Allergies: Allergies Allergy/AdvReac Type Severity Reaction Status Date / Time lisinopril AdvReac Intermediate Headache Verified 12/22/24 12:08 Plan Diagnosis/Plan: Unchanged I have reviewed the history and physical and performed a pertinent physical examination on my patient. No changes have occurred unless specified. Time Spent With Patient Time: Total time managing care of this patient today ____ minutes.
--- NOTE | 2024-12-22 13:38 | PC.NURSE ---
Pt very anxious, sts is done waiting and wants to leave. IV removed catheter intact, Dr Hyatt made aware
== END ==
LOC: HO.SSS 11:41
PROVIDERS: Nurse Practitioner; PCP Internal Medicine; Visit Provider Internal Medicine Gastroenterology
DX: K74.60 Unspecified cirrhosis of liver (principal); R18.8 Other ascites; Z53.29 Procedure and treatment not carried out because of patient's decision for other reasons; F11.20 Opioid dependence, uncomplicated; F19.11 Other psychoactive substance abuse, in remission; B19.20 Unspecified viral hepatitis C without hepatic coma; E11.65 Type 2 diabetes mellitus with hyperglycemia; Z79.4 Long term (current) use of insulin; Z79.1 Long term (current) use of non-steroidal anti-inflammatories (NSAID)
CPT/HCPCS: 80307; 82947

== ENCOUNTER 2024-12-30 07:24 | Outpatient (AMB) | payer OTHER, SELFPAY ==
--- NOTE | 2024-12-30 07:36 | MHC.OFFVIS ---
Vital Signs 12/30/24 07:46 Height 5 ft 6 in Weight 224 lb 3.362 oz BMI 36.2 BP 134/82 Blood Pressure Location Rt brachial Position Sitting Pulse 86 Pulse Source Pulse Oximeter Pulse Oximetry (%) 96 Oxygen Delivery Method Room Air Intake Visit Reasons: T2DM Intake Note: Patient present today to follow up on Type 2 Diabetes Mellitus. Last Diabetic Eye exam: 11/02/2024, [facility]. Last Podiatry Visit: Does not see a Commercial Credit Analyst Most Recent HgA1C: 12.3% 12/04/2024 Random Glucose: 358 mg/dL Mobile Application Developer Required: Yes Mobile Application Developer Language: Refrigeration Person Services: Mobile Application Developer Offered & Declined Accompanied by: Self / Same As Patient Allergies lisinopril Adverse Reaction (Intermediate, Verified 12/30/24 07:43) Headache HPI Comments Details: This is a 54-year-old male with a past medical history of cirrhosis, hepatitis-C, opioid dependence, anemia, bipolar disorder, hyperlipidemia, hypertension and type 2 diabetes presenting for diabetic management. He is followed by Jazz Mohamud PA was asked me to evaluate the patient for appropriateness of GLP 1 agonist use. He has been poorly controlled since 2022. Prior to that time he had several A1cs in the low sevens. He was diagnosed with Type II DM 30 years ago. At the time he was followed by a primary care doctor and had not been seen by an traffic coordinator prior to being seen by the [facility]. He mentions that he has wondered in the past if he was a type 1 diabetic. Hemoglobin A1c 12.3% 12/04/24. Current medication regimen: Metformin extended release 500 mg twice daily, Lantus 55 in the morning and 55 units at bedtime and Humalog per sliding scale: Blood sugar under 150 - do not use humalog Blood sugar 150 to 200 administer 12 units Blood sugar 200-250 administer 18 units Blood sugar 250-300 administer 24 units Blood sugar 300-400 administer 28 units Blood sugar >400 administer 30 units He has been unable to get his freestyle Nyla sensor from the pharmacy and I will contact them today to determine the reason. He has been using fingerstick glucose. He reports his readings primarily have been in the mid 200s with 1 reading of 140 after fasting overnight for colonoscopy. He reports that he has met with a tenon machine operator in our office last fall and he has been following a balanced diet eating primarily chicken, fish, vegetables and fruits. He does report a longstanding history of insomnia and at times he will wake up in the middle of the night and have a glass of orange juice and Syriac fries. Previous medications: Toujeo caused headaches and was discontinued. He has met with the consumer educator once. Compliance issues: Patient prevoiusly reported his psychiatric issues, stress about his dog who is older and the previous of his impact his ability to manage his diabetes and medication administration. No alcohol. Smokes 1 ppd. Hypoglycemia symptoms: Denies symptoms or episodes since last visit. Hyperglycemia symptoms: Patient says he gets no symptoms unless BG 500+ and then he feels fatigued and confused. [facility] Medical History Type 2 diabetes mellitus with hyperglycemia Cirrhosis Portal hypertensive gastropathy GERD (gastroesophageal reflux disease) Gastric ulcer Normocytic anemia History of substance abuse Bipolar disorder Moderate recurrent major depression HCV (hepatitis C virus) Acid reflux Right knee pain Transaminitis Left knee pain Pure hypercholesterolemia Essential hypertension Diabetes mellitus Surgical History H/O colonoscopy Hx of esophagogastroduodenoscopy (08/2023) History of abdominal paracentesis (06/2023) Family History Father CVD (cardiovascular disease) Diabetes Thyroid disease Maternal Grandmother Diabetes Brother Respiratory failure Asthma Sister No problems noted. Daughter No problems noted. Family/Other Mental health disorder Mother Mental health disorder Essential hypertension Social History Household Members: Family Housing: Apartment Are you a primary med care manager to a significant other at home: No Do you presently have visiting nurse or other home services: No Alcohol intake: never Patient Tobacco Use Status: Current everyday Tobacco user Tobacco use type: Cigarette Cigarettes Per Day: 3 Years Smoked: 30 e-Cigarette/Vaping Use: Currently Using Second Hand Smoke Exposure: No Substance Use Type: Former Substance User service: No Current occupational status: unemployed Current occupation: Right Handed Cognitive needs: Yes Hearing needs: No Vision needs: No Physical Exam Vital Signs: Last Vital Signs Pulse 86 12/30/24 07:46 BP 134/82 12/30/24 07:46 Pulse Ox 96 12/30/24 07:46 Oxygen Delivery Method Room Air 12/30/24 07:46 BMI result Body Mass Index 36.2 Const Other: Absence of Cushingoid features. Nodules palpable. Heart S1 S2, Reg R/R. No M/R G. Skin exam reveals absence of vitiligo or acanthosis nigricans. No edema. Results Reviewed Results Reviewed: Laboratory Last Values Glucose (Clinic) 358 mg/dL (60-115) H* 12/30/24 07:48 Assessment & Plan Assessment & Plan (1) Type 2 diabetes mellitus with hyperglycemia: Code(s): E11.65 - Type 2 diabetes mellitus with hyperglycemia Category: Medical Qualifiers: Diabetes mellitus fdc insulin use: with intermodal owner operator truck driver use Qualified Code(s): E11.65 - Type 2 diabetes mellitus with hyperglycemia; Z79.4 - intermediate card tender (current) use of insulin Plan: The patient is a 54-year-old diabetic with microalbuminuria and poorly controlled diabetes. He was diagnosed at approximately age 30 and was never followed by endocrinology. I advised the patient the 1st step would be to check a C-peptide, davide D antibody and ilet cell antibody to establish whether he is type 1 or type 2. If he has type 1 metformin should be discontinued. As these results will be coming back after I leave the medical center, I will ask Mihaela ORTEGA to follow up on these results and he does have an upcoming appointment with her. I would recommend that we change Lantus to Tresiba insulin as he is poorly controlled for the last 2 years and this would provide a more stable basal insulin, prescribed at 110 units daily. The patient was advised to continue Lantus insulin until he does get the Tresiba and to start this in the morning. Additionally, I believe his sliding scale should be started at a lower level as currently in his not started until 150. When he does not take insulin prior to the meal his sugars do go higher. New scale: 80-150 6 units 151-200 14 uits 201-250 20 units 251-300 26 units 301-350 28 units over 350 32 units The patient is interested in starting on a GLP 1 agonist and had discuss this with Mihaela ORTEGA. I discuss this in depth with Dr. Burdick. Given the fact that the patient has uncompensated liver cirrhosis, GERD, gastritis and history of bleeding varices I would not recommend using a GLP [address] Burdick is also in agreement. I have reviewed the note from his game trapper who weight in on possibly starting a low dose GLP 1 agonist. After considerable conversation with Dr. Burdick, decision was made not to prescribe this. The patient had an opportunity to ask questions regarding treatment plan. The patient expressed understanding and agreement with the above treatment plan. The patient is aware they should contact our office by phone for worsening glucose readings or for any low blood sugars which may warrant a change in diabetes medication. Compliance is encouraged with medications and any followup testing/consults which may have been ordered. Orders: Orders Islet Cell Antibody Scrn/Titer Today E11.9 - Type 2 diabetes mellitus without complications C Peptide Today E11.9 - Type 2 diabetes mellitus without complications Glutamic acid decarboxylase Ab Today E11.9 - Type 2 diabetes mellitus without complications Medications: New pen needle, diabetic (1st Tier Unifine Pentips) As directed qid 200 ea 6RF E11.65 - Type 2 diabetes mellitus with hyperglycemia, Z79.4 - senior living (current) use of insulin insulin lispro (Humalog KwikPen (U-100) Insulin) 6-32 units tid with meals subcutaneously 3 times a day; 30 mL 6RF 30 days MDD 96 insulin degludec (Tresiba FlexTouch U-200 insulin) 110 units (0.55 mL) subcut DAILY 18 mL 6RF 30 days Refilled blood-glucose sensor (FreeStyle Nyla 3 Plus Sensor device) Apply 1 new sensor every 15 days as directed to monitor blood glucose continuously. 2 ea 11RF E11.65 - Type 2 diabetes mellitus with hyperglycemia, Z79.4 - intermediate card tender (current) use of insulin Patient Instructions: The patient was counseled to achieve a target A1C of 7% (154 avg). Fasting blood sugars should be 90-130 in the morning and less than 180 two hours after meals. Reviewed the relationship between poor diabetic control and the development of complications. Check your feet daily looking for any signs of infection, drainage, redness, ulceration and seek medical attention if this occurs. Break in shoes gradually and do not wear open-toed shoes or walk stocking footed or barefooted. Always carry a source of sugar. If you develop significant illness with vomiting or fever keep hydrated and temporarily stop metformin. Notify [facility] if sugars are over 250. Stop metformin prior to surgery or tests in which dye is injected in the body. Coding Level of Care Code Est Pt Level 4 (34550) Complex EM visit Add On G2211 Diagnoses Type 2 diabetes mellitus with hyperglycemia, with long-term current use of insulin E11.65; Z79.4 Diabetes mellitus intermodal owner operator truck driver insulin use: with intermodal owner operator truck driver use
[2024-12-30 07:46] VITALS: BP 134/82; PULSE 86; O2SAT 96; BMI 36.2
[2024-12-30 07:53] LABS: Glucose, Whole Blood 358 mg/dL (60-115)
== END 2024-12-30 08:17 | disposition home or self-care (01) ==
LOC: HO.ENCR 07:25
PROVIDERS: PCP Internal Medicine; Visit Provider Nurse Practitioner Adult Health
DX: E11.65 Type 2 diabetes mellitus with hyperglycemia (principal); Z79.4 Long term (current) use of insulin
CPT/HCPCS: 99214; G2211

== ENCOUNTER → 2024-12-30 07:24 | Outpatient (BNVA) | payer OTHER, SELFPAY | PROVIDERS: PCP Internal Medicine; Visit Provider Nurse Practitioner Adult Health | DX: E11.65 Type 2 diabetes mellitus with hyperglycemia (principal); Z79.4 Long term (current) use of insulin | CPT/HCPCS: 82947; 99212 ==

== ENCOUNTER 2025-01-22 11:12 | Outpatient (AMB) | payer OTHER, SELFPAY ==
[2025-01-22 11:17] VITALS: BP 132/84; PULSE 87; O2SAT 100; BMI 36.3
--- NOTE | 2025-01-22 11:17 | MHC.OFFVIS ---
Vital Signs 01/22/25 11:17 Height 5 ft 6 in Weight 224 lb 10.417 oz BMI 36.3 BP 132/84 Blood Pressure Location Lt brachial Position Sitting Pulse 87 Pulse Source Pulse Oximeter Pulse Oximetry (%) 100 Oxygen Delivery Method Room Air Intake Visit Reasons: T2DM Intake Note: Patient present today to follow up on Type 2 Diabetes Mellitus. Last Diabetic Eye exam: 11/02/2024 [facility] Last Podiatry Visit: Does not see a Enterprise Resource Analyst Random Glucose: 460 mg/dl @ 11:28am HgA1C: 12.3% 12/04/2024 Regional Program Manager Required: Yes Regional Program Manager Language: Information Technology Internship Services: Regional Program Manager Present Regional Program Manager Name: Miguel [id number] Information Interpreted: clinical only Accompanied by: Self / Same As Patient Allergies lisinopril Adverse Reaction (Intermediate, Verified 01/22/25 11:22) Headache HPI Comments Details: This is a 54-year-old male with a past medical history of cirrhosis, hepatitis-C, opioid dependence, anemia, bipolar disorder, hyperlipidemia, hypertension and type 2 diabetes presenting for diabetic management. Video buffer inflated pad used. Patient says he is very upset and agitated. He saw a colleague of mine at his last visit since A1c has been persistently elevated. Lantus 55 units twice daily with switch to Tresiba 120 units every morning. Patient says he took it and his blood sugar dropped to 49. He was very symptomatic. Treated with candy. He tried it again 1 other day and blood sugar dropped to 52. He again treated with candy and checked for rise. His sliding scale was also adjusted which he thinks contributed to the low sugars. He has gone back to taking Lantus 55 units twice daily and Humalog 20 units before meals. He does not have a glucometer today. Patients says blood sugars are between 150-270 since changing the medications on his own. His POC is 460. He has presented to the office multiple times with severe hyperglycemia. He denies symptoms associated with this. Patient says he forgot to take Lantus and Humalog this morning. Hemoglobin A1c 12.3% 12/04/24. He does not have a glucometer sensors with him today. Previous medications: Toujeo caused headaches and was discontinued. He has met with the tobacco prevention health educator. He also saw the dietitian. Compliance issues: Patient says his psychiatric issues, stress about his dog who is older and the previous of his impact his ability to manage his diabetes and medication administration. No alcohol. Smokes 1 ppd. Hypoglycemia symptoms: Denies symptoms or episodes since last visit. Hyperglycemia symptoms: Patient says he gets no symptoms unless BG 500+ and then he feels fatigued. ROS: Constitutional: No unexplained weight loss, fever, chills , fatigue or night sweats. Eyes: No vision changes, blurry vision, double vision Respiratory: No shortness of breath Cardiovascular: No chest pain or palpitations. No pedal edema. Neurologic: No headache, dizziness, syncope, unilateral weakness, ataxia, numbness or tingling in the extremities. Skin: No open wounds. Endocrine: No cold or heat intolerance. No polyuria or polydipsia. Physical exam: Constitutional: Alert, in no distress. Head: Normocephalic. Eyes: Pupils are equal, round and reactive to light. Extraocular muscles intact. Neck: Supple, Full range of motion. No lymphadenopathy. No palpable thyroid masses. Respiratory: Clear to auscultation. Cardiovascular: S1 S2 regular. No murmurs. Skin: Warm, dry Extremities: Warm and well perfused, no edema PFSH Medical History Type 2 diabetes mellitus with hyperglycemia Cirrhosis Portal hypertensive gastropathy GERD (gastroesophageal reflux disease) Gastric ulcer Normocytic anemia History of substance abuse Bipolar disorder Moderate recurrent major depression HCV (hepatitis C virus) Acid reflux Right knee pain Transaminitis Left knee pain Pure hypercholesterolemia Essential hypertension Diabetes mellitus Surgical History H/O colonoscopy Hx of esophagogastroduodenoscopy (08/2023) History of abdominal paracentesis (06/2023) Family History Father CVD (cardiovascular disease) Diabetes Thyroid disease Maternal Grandmother Diabetes Brother Respiratory failure Asthma Sister No problems noted. Daughter No problems noted. Family/Other Mental health disorder Mother Mental health disorder Essential hypertension Social History Household Members: Family Housing: Apartment Are you a primary complex care nurse practitioner to a significant other at home: No Do you presently have visiting nurse or other home services: No Alcohol intake: never Patient Tobacco Use Status: Current everyday Tobacco user Tobacco use type: Cigarette Cigarettes Per Day: 3 Years Smoked: 30 e-Cigarette/Vaping Use: Currently Using Second Hand Smoke Exposure: No Substance Use Type: Former Substance User service: No Current occupational status: unemployed Current occupation: Right Handed Cognitive needs: Yes Hearing needs: No Vision needs: No Physical Exam Vital Signs: Last Vital Signs Pulse 87 01/22/25 11:17 BP 132/84 01/22/25 11:17 Pulse Ox 100 01/22/25 11:17 Oxygen Delivery Method Room Air 01/22/25 11:17 BMI result Body Mass Index 36.3 Results Reviewed Results Reviewed: Laboratory Last Values Glucose (Clinic) 460 mg/dL (60-115) H* 01/22/25 11:25 Laboratory Tests 06/08/24 06/08/24 11:52 11:53 Creatinine 1.31 Estimated GFR 57 Triglycerides 99 Cholesterol 181 LDL Cholesterol, Calc 116 H HDL Cholesterol 46 Vitamin B12 781 Urine Creatinine 29.94 Urine Microalbumin < 5.0 Microalb/Creat Ratio TNP Laboratory Tests 12/04/24 12/09/24 12/09/24 08:21 09:05 09:09 Creatinine 0.74 Estimated GFR > 60 Hgb A1c (Clinic) 12.3 H AST 44 H ALT 54 H Triglycerides 116 Cholesterol 194 LDL Cholesterol, Calc 125 H HDL Cholesterol 46 Vitamin B12 798 Urine Creatinine 281.52 Urine Microalbumin 38.0 Microalb/Creat Ratio 13.4 Assessment & Plan Assessment & Plan (1) Type 2 diabetes mellitus with hyperglycemia: Code(s): E11.65 - Type 2 diabetes mellitus with hyperglycemia Category: Medical Qualifiers: Diabetes mellitus ad terminal makeup operator insulin use: with ad terminal makeup operator use Qualified Code(s): E11.65 - Type 2 diabetes mellitus with hyperglycemia; Z79.4 - long term (current) use of insulin Plan In summary this is a 54-year-old male with uncontrolled type 2 diabetes and cirrhosis of the liver. Discussed pathophysiology of Type II Diabetes Mellitus with the patient in detail.? I explained the ad terminal makeup operator risks and complications associated with uncontrolled diabetes including nephropathy, neuropathy, peripheral vascular disease, retinopathy, increased risk of heart disease and stroke.? Diabetic diet reviewed. He met with a dietitian in February of 2024. He is trying to make changes to his diet. He presents with severe hyperglycemia today. Declined testing urine for ketones. Declined insulin AMA. I explained the risk of leaving without treatment including end-organ damage, DKA, coma and . He to continued declined treatment or ER evaluation. I spent the majority of the visit today understanding the patient's frustration about hypoglycemia after medication changes initiated at his visit with a colleague recently. He does not have a sensor or glucometer with him today to review. Shared decision with the patient to consider his current regimen of Lantus 55 units twice a day and Humalog 20 units before meals for now in addition to metformin extended release 500 mg twice a day. We will re-evaluate in 2 weeks. He will bring his glucometer. We discussed risks of DKA with high blood sugar. He has ketone urine strips and has been given written instructions on when to test and signs and symptoms of DKA. Reviewed proper treatment of hypoglycemia and hyperglycemia. He has written instructions for hypoglycemia and a prescription for glucose tablets. Medications: Discontinued insulin degludec (Tresiba FlexTouch U-200 insulin) Discontinued Reason: Doctor's Order 110 units (0.55 mL) subcut DAILY 30 days 18 mL 6RF Coding Level of Care Code Est Pt Level 4 (30871) Complex EM visit Add On G2211 Diagnoses Type 2 diabetes mellitus with hyperglycemia, with long-term current use of insulin E11.65; Z79.4 Diabetes mellitus ad terminal makeup operator insulin use: with ad terminal makeup operator use
[2025-01-22 11:40] LABS: Glucose, Whole Blood 460 mg/dL (60-115)
== END 2025-01-22 11:44 | disposition home or self-care (01) ==
LOC: HO.ENCR 11:13
PROVIDERS: PCP Internal Medicine; Visit Provider Physician Assistant Medical
DX: E11.65 Type 2 diabetes mellitus with hyperglycemia (principal); Z79.4 Long term (current) use of insulin

== ENCOUNTER → 2025-01-22 11:12 | Outpatient (BNVA) | payer OTHER, SELFPAY | PROVIDERS: PCP Internal Medicine; Visit Provider Physician Assistant Medical | DX: E11.65 Type 2 diabetes mellitus with hyperglycemia (principal); Z79.4 Long term (current) use of insulin | CPT/HCPCS: 82947; 99212 ==

== ENCOUNTER 2025-01-23 23:14 | Inpatient (IN) | payer OTHER, SELFPAY ==
--- NOTE | ~2025-01-23 | US_ITS ---
EXAMINATION: US ABDOMEN COMPLETE CLINICAL INFORMATION: Cirrhosis, check ascites. COMPARISON: 07/29/2023. Correlation made with CT abdomen and pelvis 11/21/2024. TECHNIQUE: Real-time imaging of the abdominal viscera. FINDINGS: PANCREAS: Visualized portions are unremarkable. ABDOMINAL AORTA: Proximal aspect is normal. Distal aspects are obscured. INFERIOR VENA CAVA: Visualized portions are normal. LIVER: The liver is normal in size. Right hepatic lobe measures 14.3 cm. Liver contour is lobulated. Diffusely coarsened hepatic echogenicity in keeping with hepatocellular disease. No focal hepatic lesion. There is no intrahepatic biliary duct dilatation seen. GALLBLADDER: The gallbladder is physiologically distended without evidence of stones, sludge, polyps, wall thickening or pericholecystic fluid. Focal adenomyomatosis in the fundus. COMMON BILE DUCT: Normal in caliber measuring 0.2 cm in diameter. RIGHT KIDNEY: No hydronephrosis. No renal calculi or focal parenchymal lesions. The kidney measures 12.1 cm in maximum dimension. LEFT KIDNEY: No hydronephrosis. No focal parenchymal lesions. The kidney measures 12.5 cm in maximum dimension. There is a 5 x 3 x 5 mm nonobstructing calculus in the midpole. SPLEEN: Splenomegaly. The spleen measures 18.1 cm in maximum dimension. FREE FLUID: None. US/US abdomen complete IMPRESSION: 1. Cirrhotic morphology of the liver. No suspicious focal liver lesion. 2. There is no ascites present. 3. Normal gallbladder and bile ducts. 4. There is a left renal nonobstructing mid pole calculus measuring 5 mm. 5. There is splenomegaly. Electronically signed by: Parish Pham MD 01/25/2025 10:18 AM EDT
--- NOTE | ~2025-01-23 | CT_ITS ---
EXAMINATION: CT ABDOMEN AND PELVIS WITH CONTRAST CLINICAL INFORMATION: Hematuria COMPARISON: November 21, 2024 TECHNIQUE: Multidetector volumetric images were obtained from the superior aspect of the liver through the pubic symphysis following administration 85 mL of Omnipaque 350 intravenous contrast. Sagittal and coronal reformatted images were obtained on the technologist's workstation. Oral contrast: No This CT examination was performed using dose optimization techniques as appropriate, variously including the following: *Automated exposure control *Adjustment of mA and/or kV according to patient size (this includes techniques or standardized protocols for targeted exams where dose is matched to indication/reason for exam; i.e. extremities or head) *Use of iterative reconstruction technique DLP: 657 mGY*cm FINDINGS: LUNG BASES: The visualized lung bases are unremarkable. LIVER, GALLBLADDER, AND BILIARY TREE: Redemonstrated is a scalloped margin to the liver which demonstrates mild hypoattenuation. There is a focal 7 mm low attenuating lesion in the liver dome, likely simple hepatic cyst. There is recanalization of the umbilical vein. Gallbladder demonstrates no wall thickening. There is no intra or extra hepatic bile duct dilation. There is a small amount of ascites has increased since the prior. PANCREAS: Unremarkable. SPLEEN: The spleen is enlarged measuring 18.2 cm. ADRENAL GLANDS: Unremarkable. KIDNEYS AND URETERS: There are multiple stones in both kidneys. The largest is located centrally on the left and measures 4 x 6 mm. There are no stones in the ureters. BLADDER: The bladder is incompletely distended and likely thick-walled because of nondistention. There are no bladder stones. GASTROINTESTINAL TRACT: The right, transverse, and left colon appear mildly thick-walled. There are calcified lymph nodes in the right lower esophageal region. ABDOMINAL WALL: No significant hernia is appreciated. LYMPH NODES: There are shotty retroperitoneal periaortic and aortocaval lymph nodes. VASCULAR: There are no paraesophageal varicosities. There is a nonocclusive filling defect in the main portal vein and in the left portal vein. PELVIC VISCERA: Unremarkable. OSSEOUS STRUCTURES: There are syndesmophytes in the imaged portions of the thoracic spine and bony bridging involving the tips of the spinous processes of the thoracic spine. There are large marginal osteophytes of the right acetabulum and small to medium sized osteophytes on the left. CT/CT abdomen pelvis w IV con IMPRESSION: Nonocclusive portal vein thrombosis. There is thrombus in the main portal vein and in the left portal vein. A Read [place] text received by Dr. Leon Portal hypertension: There is a cirrhotic scalloped liver margin with recannulized umbilical vein, uphill gastric esophageal varicosities and splenomegaly with ascites. Colonic wall thickening: Wall of the colon appears thick through the right, transverse, and descending colon. This probably related to portal hypertensive colopathy. Infection, ischemia, and inflammatory bowel disease is not ruled out. Bilateral kidney stones without hydronephrosis. Changes consistent with ankylosing spondylitis in the imaged portions of the thoracic spine. Fleischner guidelines were followed. Electronically signed by: Miah Doe MD 01/25/2025 04:23 PM EDT
[2025-01-23 23:20] VITALS: BP 182/94; PULSE 109; O2SAT 96
[2025-01-23 23:29] VITALS: BP 150/76; PULSE 101; RESP 16; TEMP 36.9; O2SAT 96; BMI 35.5
[2025-01-24 00:13] LABS: MANUAL DIFF FLAG NO
[2025-01-24 00:15] LABS: Appearance Urine Clear; Glucose Urine UA >=1000 mg/dL (Negative); PH 6.0 (5.0-9.0); Specific Gravity - Urine >= 1.030 (1.005-1.025); UMIC TRIGGER UACC YES
[2025-01-24 00:22] LABS: Hematocrit 35.9 % (42.0-52.0); Hemoglobin 12.9 g/dl (14.0-18.0); Imm Gran Abs Auto 0.01 X10*3/uL (0.00-0.03); Imm Gran Pct Auto 0.2 % (0.0-0.4); Lymphocytes Absolute Auto 1.6 X10*3/uL (1.2-4.9); Mean Corpuscular HGB Conc 35.9 g/dl (31.0-36.0); Mean Corpuscular Hemoglobin 29.9 pg (27.0-33.0); Mean Corpuscular Volume 83.1 fL (80.0-98.0); NRBC Abs Auto 0.000 X10*3/uL (0.0-0.012); NRBC Pct Auto 0.0 /100WBC (0.0-0.2); Platelet Count 88 X10*3/uL (160-400); Red Blood Count 4.32 X10*6/uL (4.60-5.80); White Blood Count 6.2 X10*3/uL (4.8-10.8)
[2025-01-24 00:30] LABS: Alanine Aminotransferase 56 U/L (0-40); Albumin Level 3.9 g/dL (3.5-5.0); Alkaline Phosphatase 195 U/L (39-117); Anion Gap 14 (12-20); Aspartate Amino Transferase 53 U/L (5-37); Blood Urea Nitrogen 19 mg/dL (9-16); Calcium 9.0 mg/dL (8.4-10.2); Carbon Dioxide 25 mmol/L (22-29); Chloride 103 mmol/L (96-108); Creatinine Clr Calc Pharmacy 112.5; Estimated Glomerular Filt Rate > 60; Potassium 4.0 mmol/L (3.3-5.1); Sodium 138 mmol/L (135-145); Total Protein 6.8 g/dL (6.5-8.0)
--- NOTE | 2025-01-24 01:31 | ED.MALEGU ---
HPI - Male Genitourinary General Chief complaint: Urogenital-Male Stated complaint: hematuria Time Seen by Provider: 01/24/25 01:26 History of Present Illness ED Provider: Mohan Ibanez MD HPI Narrative: 54-year-old male who reports history of cirrhosis prior GI bleeding and self-reported esophageal banding. He states he has several hours with about 2 or 3 total bowel movements with bright red blood. No rectal pain. He also felt that he had hematuria and he has a history of kidney stones he has some pain in the right lower flank radiating to the right lower quadrant no testicular pain. No injuries to the abdomen or flank Related Data Home Medications ?Medication ?Instructions ?Recorded ?Confirmed clonazepam 0.5 mg tablet 0.5 mg PO DAILY PRN Anxiety 08/15/21 12/18/24 quetiapine 50 mg tablet 50 mg PO BID 08/15/21 12/22/24 buprenorphine 8 mg-naloxone 2 mg 8 mg sublingual TID 10/09/22 12/18/24 sublingual film prazosin 2 mg capsule 2 mg PO BEDTIME 10/09/22 12/22/24 hydrocortisone 1 % topical cream 1 appl topical DAILY 09/06/23 12/22/24 with perineal applicator quetiapine 100 mg tablet 100 mg PO BID 09/06/23 12/22/24 trazodone 100 mg tablet 100 mg PO DAILY 12/14/24 12/22/24 insulin glargine 100 unit/mL 75 unit subcut BEDTIME 12/22/24 12/22/24 subcutaneous solution (Lantus U-100 Insulin) Previous Rx's ?Medication ?Instructions ?Recorded Shower Chair #1 ea 05/22/22 handheld shower #1 ea 05/22/22 nonslip shower mat #1 ea 05/22/22 pravastatin 20 mg tablet 20 mg PO BEDTIME 90 days #90 tabs 02/05/24 glucose 4 gram chewable tablet 16 g (4 x 4 gram) PO Q15M PRN 02/21/24 (Dex4 Glucose) hypoglycemia #60 tabs blood sugar diagnostic (OneTouch #200 ea 04/03/24 Verio test strips) blood-glucose meter (OneTouch #1 ea 04/03/24 Verio Flex Meter) blood-glucose,manager water,cont #1 ea 04/03/24 (FreeStyle Nyla 3 Harmans) hydrocortisone 1 % topical cream 1 appl topical TID PRN skin 06/02/24 (Anti-Itch (hydrocortisone)) irritation 2 weeks #28.4 grams ibuprofen 800 mg tablet 800 mg PO Q8H PRN pain 30 days #90 06/08/24 Held on 11/25/24. tabs Instructions: Doctor's Order acetone (urine) test (Ketone Care #100 ea 08/18/24 strips) urinal #1 ea 10/07/24 metformin 500 mg tablet,extended 500 mg PO BID #180 tabs 11/17/24 release 24 hr tramadol 50 mg tablet 50 mg PO Q8H PRN pain 3 days #7 11/25/24 tabs insulin syringe-needle U-100 0.3 #100 ea 12/04/24 mL 31 gauge x 11/06 insulin syringe-needle U-100 1 mL #100 ea 12/04/24 31 gauge x 11/06 sodium,potassium,mag sulfates 17.5 See Rx Instructions PO .COMPLEX 12/14/24 gram-3.13 gram-1.6 gram oral soln #354 mL (Suprep Bowel Prep Kit) amlodipine 5 mg tablet 5 mg PO DAILY 90 days #90 tabs 12/15/24 carvedilol 3.125 mg tablet 3.125 mg PO BID 90 days #180 tabs 12/15/24 cholecalciferol (vitamin D3) 50 50 mcg PO DAILY 90 days #90 caps 12/15/24 mcg (2,000 unit) capsule clotrimazole 1 % topical cream 1 appl topical BID 4 weeks #30 12/15/24 grams furosemide 20 mg tablet 20 mg PO DAILY 90 days #90 tabs 12/15/24 lancets 33 gauge (OneTouch Delica #200 ea 12/15/24 Plus Lancet) lidocaine 5 % topical patch 1 patch topical DAILY 30 days #30 12/15/24 ea spironolactone 25 mg tablet 50 mg PO DAILY 90 days #180 tabs 12/15/24 blood-glucose sensor (FreeStyle #2 ea 12/30/24 Nyla 3 Plus Sensor device) insulin lispro 100 unit/mL See Rx Instructions subcut TID 30 12/30/24 subcutaneous pen (Humalog Kw #30 mL (U-100) Insulin) pen needle, diabetic 31 gauge x #200 ea 12/30/2411/06 (1st Tier Unifine Pentips) Allergies Allergy/AdvReac Type Severity Reaction Status Date / Time No Known Allergies Allergy Verified 01/23/25 23:31 [facility] Past Medical History Medical History Type 2 diabetes mellitus with hyperglycemia Cirrhosis Portal hypertensive gastropathy GERD (gastroesophageal reflux disease) Gastric ulcer Normocytic anemia History of substance abuse Bipolar disorder Moderate recurrent major depression HCV (hepatitis C virus) Acid reflux Right knee pain Transaminitis Left knee pain Pure hypercholesterolemia Essential hypertension Diabetes mellitus Surgical History H/O colonoscopy Hx of esophagogastroduodenoscopy (08/2023) History of abdominal paracentesis (06/2023) Family History Family History Father CVD (cardiovascular disease) Diabetes Thyroid disease Maternal Grandmother Diabetes Brother Respiratory failure Asthma Sister No problems noted. Daughter No problems noted. Family/Other Mental health disorder Mother Mental health disorder Essential hypertension Social History Social History Household Members: Family Housing: Apartment Are you a primary disabilities caregiver to a significant other at home: No Do you presently have visiting nurse or other home services: No Alcohol intake: never Patient Tobacco Use Status: Current everyday Tobacco user Tobacco use type: Cigarette Cigarettes Per Day: 3 Years Smoked: 30 e-Cigarette/Vaping Use: Currently Using Second Hand Smoke Exposure: No Substance Use Type: Former Substance User Advance Directives: No Advance Directives Information Provided: Yes service: No Current occupational status: unemployed Current occupation: Right Handed Cognitive needs: Yes Hearing needs: No Vision needs: No Physical Exam Exam: Exam: EXAM: Gen: Alert, awake, well appearing, well hydrated. Head: Atraumatic Eyes: Anicteric, Normal conjunctiva. ENT: Moist mucosa, no pallor. ? Neck: Supple. Skin: ?No observable rash or bruising on exposed or examined skin Respiratory: Breathing comfortably, No distress.Clear to auscultation bilaterally, symmetric chest expansion, No wheeze, rales, ronchi. Cardiovascular: Regular rate and rhythm. No murmurs or rub. Well perfused periphery, warm extremities. No edema. ? Abdominal: Mild right lower quadrant tenderness Soft, no objective distension. No palpable masses or obvious organomegaly. ?No guarding, no rebound tenderness or other peritoneal findings. Digital rectal exam chaperoned by nurse tech: No hemorrhoids. Slightly dark bloody residue on the digit no rapid hemorrhage or clots : No flank tenderness. Neuro: Alert. Gross movement of all extremities intact. ? Psych: Calm. Cooperative. MSK: No grossly visible deformity. Vital signs: See flowsheet Vital Signs: Vital Signs: Last Vital Signs Temp 98.4 F 01/23/25 23:29 Pulse 101 H 01/23/25 23:29 Resp 16 01/23/25 23:29 BP 150/76 H 01/23/25 23:29 Pulse Ox 96 01/23/25 23: O2 Del Method Room Air 01/23/25 23:29 BMI result Body Mass Index 35.5 Medical Decision Making Medical Decision Making MDM Narrative: Medical Decision Makin-year-old male with history of cirrhosis and prior variceal bleeding that was banded 2023. Also has history of kidney stones he came in telling me that he has both hematuria with mild low right flank pain but also and more concerning for him was bright red blood per rectum about 3 episodes over the past few hours this evening. No hematemesis. No anemia symptoms such as lightheadedness fatigue near-syncope. He is adherent with all his medications denies epigastric pain. Vital signs has been stable in the patient has been resting comfortable he does not appear ill or toxic. No vomiting in the ED. small amount of dark residual blood in the rectal vault on digital exam that is guaiac positive in the laboratory. Minimal hemoglobin drop on repeat without fluid administration in the ED, from baseline dropped from 14-12.9. Presumed upper GI bleed possibly variceal versus PUD/gastritis. No evidence to suggest rapid or heavy gastrointestinal arterial source though we will watch him closely. Regarding the hematuria he does have hematuria but no signs on UA to suggest infection. He has no hydronephrosis or evidence of clot on point of care renal/bladder ultrasound. Preliminary Favored Differential Diagnosis: Upper GI bleed possibly PUD versus variceal versus alternative etiology less likely lower GI bleed. Ureteral colic, cystitis or hemorrhagic cystitis among additional considered etiologies Testing Interpreted Independently: Point of care ultrasound see my report. Radiology or Lab testing Results Reviewed: Labs reviewed Consults: Not Applicable Independent Historians/External Chart Reviews: Not Applicable Social Determinants of Health Impacting MDM/Planning: Not Applicable Lab Data 01/24/25 02:46 01/24/25 00:04 Labs: Lab Results 01/24/25 01/24/25 Range/Units 00:04 02:46 WBC 6.2 5.1 (4.8-10.8) X10*3/uL RBC 4.32 L 4.14 L (4.60-5.80) X10*6/uL Hgb 12.9 L 12.4 L (14.0-18.0) g/dl Hct 35.9 L 34.6 L (42.0-52.0) % MCV 83.1 83.6 (80.0-98.0) fL MCH 29.9 30.0 (27.0-33.0) pg MCHC 35.9 35.8 (31.0-36.0) g/dl RDW 13.3 13.4 (11.0-16.0) % Plt Count 88 L 77 L (160-400) X10*3/uL MPV 9.4 9.8 (9.4-12.4) fL Immature Gran % (Auto) 0.2 0.4 (0.0-0.4) % Neut % (Auto) 62.9 56.9 (45-73) % Lymph % (Auto) 25.2 30.3 (20-40) % Ada % (Auto) 8.1 8.7 (2-11) % Eos % (Auto) 3.1 3.1 (0-4) % Baso % (Auto) 0.5 0.6 (0-2) % Lymph # (Auto) 1.6 1.5 (1.2-4.9) X10*3/uL Ada # (Auto) 0.5 0.4 (0.1-1.2) X10*3/uL Eos # (Auto) 0.2 0.2 (0.0-0.4) X10*3/uL Baso # (Auto) 0.0 0.0 (0.0-0.2) X10*3/uL Abs Immat Gran (auto) 0.01 0.02 (0.00-0.03) X10*3/uL Absolute Neuts (auto) 3.9 2.9 (2.0-8.3) x10*3/uL Absolute Nucleated RBC 0.000 0.000 (0.0-0.012) X10*3/uL Nucleated RBC % (auto) 0.0 0.0 (0.0-0.2) /100WBC Sodium 138 (135-145) mmol/L Potassium 4.0 (3.3-5.1) mmol/L Chloride 103 (96-108) mmol/L Carbon Dioxide 25 (22-29) mmol/L Anion Gap 14 (12-20) BUN 19 H (9-16) mg/dL Creatinine 0.83 (0.5-1.4) mg/dL Estim Creat Clear Calc 112.5 Estimated GFR > 60 Random Glucose 346 H (60-115) mg/dL Calcium 9.0 (8.4-10.2) mg/dL Total Bilirubin 1.8 H (0.0-1.0) mg/dL AST 53 H (5-37) U/L ALT 56 H (0-40) U/L Alkaline Phosphatase 195 H (39-117) U/L Total Protein 6.8 (6.5-8.0) g/dL Albumin 3.9 (3.5-5.0) g/dL Urine Color Yellow Urine Appearance Clear Urine pH 6.0 (5.0-9.0) Ur Specific [place] >= 1.030 H (1.005-1.025) Urine Protein Negative (Neg-Trace) mg/dL Urine Glucose (UA) >=1000 H (Negative) mg/dL Urine Ketones Trace (Negative) mg/dL Urine Blood Small (1+) H (Negative) Urine Nitrite Negative (Negative) Ur Leukocyte Esterase Negative (Negative) Urine RBC 11-20 H (0-2) /HPF Urine WBC 0-5 (0-5) /HPF Ur Squamous Epith Cells 0-2 (0-2) /HPF Urine Bacteria None Seen (None Seen) Hyaline Casts 0-2 (0-2) /LPF Stool Occult Blood POSITIVE (NEGATIVE) Procedures Procedure Narrative Procedure Narrative: EMERGENCY ULTRASOUND INTERPRETATION-Limited Retroperitoneal (Renal) [This study was ordered, performed, and interpreted by myself. The study reveals: Impression: NO EVIDENCE OF UROLOGIC OBSTRUCTION] [Indication: FLANK PAIN Bladder: ANECHOIC URINE Right Kidney: NO HYDRONEPHROSIS Left Kidney: NO HYDRONEPHROSIS Performed by: Mohan Ibanez MD Images were stored CPT: 55801] Discharge Plan Discharge Clinical Impression: Acute upper gastrointestinal bleeding Patient Disposition: Admitted As Inpatient Print Language: Welsh
[2025-01-24 02:51] LABS: OBS Int Ctl Valid YES
[2025-01-24 02:52] LABS: MANUAL DIFF FLAG NO; OBS1 POSITIVE (NEGATIVE)
[2025-01-24 02:55] LABS: Hematocrit 34.6 % (42.0-52.0); Hemoglobin 12.4 g/dl (14.0-18.0); Imm Gran Abs Auto 0.02 X10*3/uL (0.00-0.03); Imm Gran Pct Auto 0.4 % (0.0-0.4); Lymphocytes Absolute Auto 1.5 X10*3/uL (1.2-4.9); Mean Corpuscular HGB Conc 35.8 g/dl (31.0-36.0); Mean Corpuscular Hemoglobin 30.0 pg (27.0-33.0); Mean Corpuscular Volume 83.6 fL (80.0-98.0); NRBC Abs Auto 0.000 X10*3/uL (0.0-0.012); NRBC Pct Auto 0.0 /100WBC (0.0-0.2); Platelet Count 77 X10*3/uL (160-400); Red Blood Count 4.14 X10*6/uL (4.60-5.80); White Blood Count 5.1 X10*3/uL (4.8-10.8)
--- NOTE | 2025-01-24 03:07 | PM.IMHP ---
History of Present Illness Date of Service: 01/24/25 Chief Complaint: Bright red blood per rectum 54-year-old male with a past medical history of HTN, HLD, dm, hep C, liver cirrhosis, history of variceal bleed, anemia, portal hypertensive gastropathy; GERD, thrombocytopenia, anxiety, depression, bipolar disorder, history of substance use disorder, peptic ulcer disease; presented to the today with a chief complaint of bright red blood per rectum. Patient reports he had couple of episodes of BRBPR prior to coming to the hospital. Denies any lightheadedness or dizziness. Denies any fever chills cough or sputum production. Denies any urinary symptoms. Denies any shortness of breath or dyspnea on exertion. Denies any hematemesis. Review of all other systems is negative except mentioned above ER course: Per ER team, patient exam was benign; did not have any further episodes of bleeding while in the ER. Hemoglobin slightly dropped from his baseline. On rectal exam noted to have residual blood in the rectal vault. No active signs of bleeding. Blood pressure is stable. Patient also reported having hematuria. [facility] Medical History Type 2 diabetes mellitus with hyperglycemia Cirrhosis Portal hypertensive gastropathy GERD (gastroesophageal reflux disease) Gastric ulcer Normocytic anemia History of substance abuse Bipolar disorder Moderate recurrent major depression HCV (hepatitis C virus) Acid reflux Right knee pain Transaminitis Left knee pain Pure hypercholesterolemia Essential hypertension Diabetes mellitus Family History Father CVD (cardiovascular disease) Diabetes Thyroid disease Maternal Grandmother Diabetes Brother Respiratory failure Asthma Sister No problems noted. Daughter No problems noted. Family/Other Mental health disorder Mother Mental health disorder Essential hypertension Surgical History H/O colonoscopy Hx of esophagogastroduodenoscopy (08/2023) History of abdominal paracentesis (06/2023) Social History Household Members: Family Housing: Apartment Are you a primary college and career counselor to a significant other at home: No Do you presently have visiting nurse or other home services: No Alcohol intake: never Patient Tobacco Use Status: Current everyday Tobacco user Tobacco use type: Cigarette Cigarettes Per Day: 3 Years Smoked: 30 e-Cigarette/Vaping Use: Currently Using Second Hand Smoke Exposure: No Substance Use Type: Former Substance User Advance Directives: No Advance Directives Information Provided: Yes service: No Current occupational status: unemployed Current occupation: Right Handed Cognitive needs: Yes Hearing needs: No Vision needs: No Meds Allergies Allergy/AdvReac Type Severity Reaction Status Date / Time No Known Allergies Allergy Verified 01/23/25 23:31 Home Medications ?Medication ?Instructions ?Recorded ?Confirmed ?Last Taken ?Type clonazepam 0.5 mg tablet 0.5 mg PO DAILY PRN Anxiety 08/15/21 12/18/24 Unknown History quetiapine 50 mg tablet 50 mg PO BID 08/15/21 12/22/24 Unknown History buprenorphine 8 mg-naloxone 2 mg 8 mg sublingual TID 10/09/22 12/18/24 09/10/23 History sublingual film prazosin 2 mg capsule 2 mg PO BEDTIME 10/09/22 12/22/24 Unknown History hydrocortisone 1 % topical cream 1 appl topical DAILY 09/06/23 12/22/24 Unknown History with perineal applicator quetiapine 100 mg tablet 100 mg PO BID 09/06/23 12/22/24 Unknown History trazodone 100 mg tablet 100 mg PO DAILY 12/14/24 12/22/24 Unknown History insulin glargine 100 unit/mL 75 unit subcut BEDTIME 12/22/24 12/22/24 12/22/24 06:00 History subcutaneous solution (Lantus U-100 Insulin) Physical Exam Vital Signs and Narrative: Vital Signs: Last Vital Signs Temp 98.4 F 01/23/25 23:29 Pulse 101 H 01/23/25 23:29 Resp 16 01/23/25 23:29 BP 150/76 H 01/23/25 23:29 Pulse Ox 96 01/23/25 23:29 O2 Del Method Room Air 01/23/25 23:29 BMI result Body Mass Index 35.5 Gen: Appears be in no acute distress HEENT: NCAT, Moist mucosa. Pulmonary: Vesicular breath sounds, fair air entry CVS: Normal S1-S2 Abdomen: BS+, Soft, Nontender Extremities: Warm well perfused Neuro: Alert and awake. Results Labs 01/24/25 02:46 01/24/25 00:04 Labs: Laboratory Results - last 24 hr 01/24/25 01/24/25 00:04 02:46 MCV 83.1 83.6 MCH 29.9 30.0 MCHC 35.9 35.8 RDW 13.3 13.4 Plt Count 88 L 77 L MPV 9.4 9.8 Immature Gran % (Auto) 0.2 0.4 Neut % (Auto) 62.9 56.9 Lymph % (Auto) 25.2 30.3 [place] % (Auto) 8.1 8.7 Eos % (Auto) 3.1 3.1 Baso % (Auto) 0.5 0.6 Lymph # (Auto) 1.6 1.5 [place] # (Auto) 0.5 0.4 Eos # (Auto) 0.2 0.2 Baso # (Auto) 0.0 0.0 Abs Immat Gran (auto) 0.01 0.02 Absolute Neuts (auto) 3.9 2.9 Absolute Nucleated RBC 0.000 0.000 Nucleated RBC % (auto) 0.0 0.0 Anion Gap 14 Estim Creat Clear Calc 112.5 Estimated GFR > 60 Random Glucose 346 H Calcium 9.0 Total Bilirubin 1.8 H AST 53 H ALT 56 H Alkaline Phosphatase 195 H Total Protein 6.8 Albumin 3.9 Urine Color Yellow Urine Appearance Clear Urine pH 6.0 Ur Specific [place] >= 1.030 H Urine Protein Negative Urine Glucose (UA) >=1000 H Urine Ketones Trace Urine Blood Small (1+) H Urine Nitrite Negative Ur Leukocyte Esterase Negative Urine RBC 11-20 H Urine WBC 0-5 Ur Squamous Epith Cells 0-2 Urine Bacteria None Seen Hyaline Casts 0-2 Stool Occult Blood POSITIVE Assessment and Plan (1) BRBPR (bright red blood per rectum): Status: Acute Plan 54-year-old male with a past medical history of HTN, HLD, dm, hep C, liver cirrhosis, history of variceal bleed, anemia, portal hypertensive gastropathy; GERD, thrombocytopenia, anxiety, depression, bipolar disorder, history of substance use disorder, peptic ulcer disease; presented to the today with a chief complaint of bright red blood per rectum. BRBPR: Patient has prior history of variceal bleed. Currently denies any hematemesis. Blood pressure is stable. Serial H&H GI consult NPO Gentle IV fluids History of thrombocytopenia: Platelets were 77 on presentation. Patient has similar values in the past. Likely related to his liver disease. Will monitor. Diabetes: Patient on 75 units of Lantus plus metformin at home. Hold home regimen. Insulin sliding scale for now. Monitor POC glucose and adjust insulins accordingly. Hematuria: Renal ultrasound pending. Urology consult. Med reconciliation: Will resume home medications once med rec is completed with the pharmacy in the morning. DVT prophylaxis: SCD boots Code status: Full code Quality Stroke Does the patient have a stroke diagnosis?: No VTE Prior VTE?: No VTE Risk Level:: Medical - moderate - high VTE Device Contraindication: N/A - Device Ordered VTE Drug Contraindication: Treatment Not Indicated
[2025-01-24 03:40] VITALS: BP 149/83; PULSE 84; RESP 16; O2SAT 99
[2025-01-24] MEDS: Lactated Ringers 1,000 ML 75 ML IVCONT (03:44)
[2025-01-24 04:40] LABS: MANUAL DIFF FLAG NO
[2025-01-24 04:43] LABS: Hematocrit 33.4 % (42.0-52.0); Hemoglobin 11.9 g/dl (14.0-18.0); Imm Gran Abs Auto 0.01 X10*3/uL (0.00-0.03); Imm Gran Pct Auto 0.2 % (0.0-0.4); Lymphocytes Absolute Auto 1.5 X10*3/uL (1.2-4.9); Mean Corpuscular HGB Conc 35.6 g/dl (31.0-36.0); Mean Corpuscular Hemoglobin 29.8 pg (27.0-33.0); Mean Corpuscular Volume 83.5 fL (80.0-98.0); NRBC Abs Auto 0.000 X10*3/uL (0.0-0.012); NRBC Pct Auto 0.0 /100WBC (0.0-0.2); Red Blood Count 4.00 X10*6/uL (4.60-5.80); White Blood Count 4.3 X10*3/uL (4.8-10.8)
[2025-01-24 04:44] LABS: Platelet Count 70 X10*3/uL (160-400)
[2025-01-24 04:55] LABS: Alanine Aminotransferase 42 U/L (0-40); Albumin Level 3.3 g/dL (3.5-5.0); Alkaline Phosphatase 164 U/L (39-117); Anion Gap 11 (12-20); Aspartate Amino Transferase 42 U/L (5-37); Blood Urea Nitrogen 17 mg/dL (9-16); Calcium 8.2 mg/dL (8.4-10.2); Carbon Dioxide 23 mmol/L (22-29); Chloride 107 mmol/L (96-108); Creatinine Clr Calc Pharmacy 141.5; Estimated Glomerular Filt Rate > 60; Potassium 3.2 mmol/L (3.3-5.1); Sodium 138 mmol/L (135-145); Total Protein 5.6 g/dL (6.5-8.0)
[2025-01-24 06:30] VITALS: BP 144/77; PULSE 85; RESP 16; TEMP 36.9; O2SAT 98
[2025-01-24] MEDS: Octreotide Acetate 100 MCG/ML AMPUL 50 MCG IVPUSH (07:22)
[2025-01-24] MEDS: 0.9 % Sodium Chloride Flush 3 ML SYRINGE IVFLUSH ×2 (07:22→18:11)
[2025-01-24 07:30] LABS: Glucose, Whole Blood 227 mg/dL (60-115)
--- NOTE | 2025-01-24 07:51 | PM.GICN ---
History of Present Illness Data of Consult Service Date: 01/24/25 Requesting physician: Tj Mcgee Primary Care Provider: Unknown Physician HPI Reason for consult: BRBPR This is a 54-year-old gentleman with medical history of HCV genotype 1a-status post Epclusa with SVR 07/2023, bipolar disorder, diabetes, who presented to the hospital for BRBPR. History was obtained from the patient who states that 1 day prior to admission he has started noticing bright red blood per rectum on wiping. He had history of variceal bleeding with significant blood loss in 2023, and therefore called EMS who brought to the hospital right away for immediate medical attention. He does have diffuse lower abd discomfort but hes unsure if that is from renal stones. Does not report any nausea, vomiting. No hematemesis. Most recent bowel movement was this morning, and again noted blood on wiping. Patient follows with Dr. Hyatt as outpatient and was scheduled for upper endoscopy and colonoscopy on 12/22 but patient left before the procedure could be done as he developed severe anxiety related to the procedure while waiting. Recent endoscopy: 09/10/23: Grade 2 varices with red Yang sign status post EVBL. Portal hypertensive gastropathy. Superficial antral ulcer. Portal hypertensive duodenopathy. Review of Systems Review of Systems: Yes all other systems are reviewed and are negative PMFSH Past Medical History Medical History Type 2 diabetes mellitus with hyperglycemia Cirrhosis Portal hypertensive gastropathy GERD (gastroesophageal reflux disease) Gastric ulcer Normocytic anemia History of substance abuse Bipolar disorder Moderate recurrent major depression HCV (hepatitis C virus) Acid reflux Right knee pain Transaminitis Left knee pain Pure hypercholesterolemia Essential hypertension Diabetes mellitus Family History Family History Father CVD (cardiovascular disease) Diabetes Thyroid disease Maternal Grandmother Diabetes Brother Respiratory failure Asthma Sister No problems noted. Daughter No problems noted. Family/Other Mental health disorder Mother Mental health disorder Essential hypertension Surgical History Surgical History H/O colonoscopy Hx of esophagogastroduodenoscopy (08/2023) History of abdominal paracentesis (06/2023) Social History Social History (Reviewed 12/30/24 @ 07:44 by ALCIDES Black Household Members: Family Housing: Apartment Are you a primary congregational care pastor to a significant other at home: No Do you presently have visiting nurse or other home services: No Alcohol intake: never Patient Tobacco Use Status: Current everyday Tobacco user Tobacco use type: Cigarette Cigarettes Per Day: 3 Years Smoked: 30 Smoked in Last 30 Days: Yes e-Cigarette/Vaping Use: Currently Using Second Hand Smoke Exposure: No Use of substances other than those prescribed or required for medical reasons: No Substance Use Type: Former Substance User Advance Directives: No Advance Directives Information Provided: Yes Do you have a plan to hurt others: No Plan Nutrition Risks: No Nutritional Risk service: No Current occupational status: unemployed Current occupation: Right Handed Cognitive needs: Yes Hearing needs: No Vision needs: No Meds Allergies Allergy/AdvReac Type Severity Reaction Status Date / Time No Known Allergies Allergy Verified 01/23/25 23:31 Active Medications: Current Medications Acetaminophen (Acetaminophen 325 Mg Tablet) 650 mg PO Q6H PRN PRN Reason: Pain, Mild 1-3,fever,headache Calcium Carbonate (Calcium Carbonate 750 Mg Tab.Chew) 750 mg PO Q4H PRN PRN Reason: Heartburn Ceftriaxone Sodium (Ceftriaxone Sodium 1 Gm Vial) 1 gm IVPUSH Q24H [facility] Last Admin: 01/24/25 07:22 Dose: 1 gm Dextrose (Dextrose 50 % 25 Gm/50 Ml Syringe) 25 gm IVPUSH Q15M PRN; Protocol PRN Reason: per Hypoglycemia Standing Ord. Glucose (Glucose Gel 15 Gm Gel..Gram.) 15 gm PO Q15M PRN; Protocol PRN Reason: per Hypoglycemia Standing Ord. Lactated Ringer's (Lr) 1,000 mls @ 75 mls/hr IVCONT .[id number] [facility] Last Admin: 01/24/25 03:44 Dose: 75 mls/hr Octreotide Acetate 500 mcg/ (Sodium Chloride) 501 mls @ 50.1 mls/hr IVCONT .Q10H [facility] Insulin Human Lispro (Insulin Lispro 100 Unit/Ml 3 Ml Vial) 0 unit SUBCUT QIDACHS [facility]; Protocol Magnesium Hydroxide (Milk Of Magnesia 30 Ml Oral.Susp) 30 ml PO DAILY PRN PRN Reason: Constipation Melatonin (Melatonin 3 Mg Tablet) 6 mg PO BEDTIME PRN PRN Reason: Insomnia Ondansetron HCl (Ondansetron Hcl 4 Mg/2 Ml Vial) 4 mg IVPUSH Q6H PRN PRN Reason: Nausea and Vomiting Sodium Chloride (0.9 % Sodium Chloride Flush 3 Ml Syringe) 3 ml IVFLUSH QSHIFT [facility] Last Admin: 01/24/25 07:22 Dose: 3 ml Home Medications ?Medication ?Instructions ?Recorded ?Confirmed ?Last Taken ?Type clonazepam 0.5 mg tablet 0.5 mg PO DAILY PRN Anxiety 08/15/21 12/18/24 Unknown History quetiapine 50 mg tablet 50 mg PO BID 08/15/21 12/22/24 Unknown History buprenorphine 8 mg-naloxone 2 mg 8 mg sublingual TID 10/09/22 12/18/24 09/10/23 History sublingual film prazosin 2 mg capsule 2 mg PO BEDTIME 10/09/22 12/22/24 Unknown History hydrocortisone 1 % topical cream 1 appl topical DAILY 09/06/23 12/22/24 Unknown History with perineal applicator quetiapine 100 mg tablet 100 mg PO BID 09/06/23 12/22/24 Unknown History trazodone 100 mg tablet 100 mg PO DAILY 12/14/24 12/22/24 Unknown History insulin glargine 100 unit/mL 75 unit subcut BEDTIME 12/22/24 12/22/24 12/22/24 06:00 History subcutaneous solution (Lantus U-100 Insulin) buprenorphine 8 mg-naloxone 2 mg 3 film sublingual DAILY 01/24/25 Unknown History sublingual film Physical Exam Exam: Exam: No apparent distress Nonicteric Abdomen soft, nondistended, nontender Alert and oriented x3, Vital Signs: Vital Signs: Last Vital Signs Temp 98.4 F 01/24/25 06:30 Pulse 85 01/24/25 06:30 Resp 16 01/24/25 06:30 BP 144/77 H 01/24/25 06:30 Pulse Ox 98 01/24/25 06:30 O2 Del Method Room Air 01/24/25 06:30 BMI result Body Mass Index 35.5 Results Labs 01/24/25 04:36 01/24/25 04:36 Labs: Short CBC 01/24/25 01/24/25 01/24/25 Range/Units 00:04 02:46 04:36 WBC 6.2 5.1 4.3 L (4.8-10.8) X10*3/uL Hgb 12.9 L 12.4 L 11.9 L (14.0-18.0) g/dl Hct 35.9 L 34.6 L 33.4 L (42.0-52.0) % Plt Count 88 L 77 L 70 L (160-400) X10*3/uL BMP 01/24/25 01/24/25 00:04 04:36 Sodium 138 138 Potassium 4.0 3.2 L Chloride 103 107 Carbon Dioxide 25 23 BUN 19 H 17 H Creatinine 0.83 0.66 Calcium 9.0 8.2 L D Liver Function 01/24/25 01/24/25 Range/Units 00:04 04:36 Total Bilirubin 1.8 H 1.3 H (0.0-1.0) mg/dL AST 53 H 42 H (5-37) U/L ALT 56 H 42 H (0-40) U/L Alkaline Phosphatase 195 H 164 H (39-117) U/L Albumin 3.9 3.3 L (3.5-5.0) g/dL Urine 01/24/25 Range/Units 00:04 Urine Color Yellow Urine Appearance Clear Urine pH 6.0 (5.0-9.0) Ur Specific [place] >= 1.030 H (1.005-1.025) Urine Protein Negative (Neg-Trace) mg/dL Urine Glucose (UA) >=1000 H (Negative) mg/dL Assessment and Plan (1) Cirrhosis: Qualifiers: Hepatic cirrhosis type: unspecified hepatic cirrhosis Ascites presence: with ascites Qualified Code(s): K74.60 - Unspecified cirrhosis of liver; R18.8 - Other ascites Status: Acute (2) Acute lower gastrointestinal bleeding: Status: Acute (3) Esophageal varices with bleeding: Status: Resolved Plan #LGIB #Decomp cirrhosis 2/2 HCV 1a s/p epclusa with SVR 2023 - MELD-Na 10 - Hx of high risk esophageal varices - Hx of ascites (US neg from last week) Bleeding appears to be rectal outlet bleeding based on description and pictures shown by the pt. Other Ddx include proctitis, SURS, less likely to be rectal varices as bleeding is very small amount. He is overdue for a colo - left from pre-op last month due to heightened anxiety related to the procedure. He is also due for variceal surveillance and HCC screening. Recommendations: -maintain at least 2 peripheral IV access at all times -daily CBC, CMP and INR -EGD/colo tentatively planned for 01/26 -US Abd ordered -Clear liquid tmrw and NPO after MN for 01/26 Thank you for allowing me to participate in his care. Please do not hesitate to reach out for any questions or concerns. Procedures Date of Service Date of Service: 01/24/25
--- NOTE | 2025-01-24 08:09 | PC.NURSE ---
pt was sleeping and easily woken, medicated as ordered, shortly after getting the meds, pt had brief episode of nausea, zofran ordered but nausea gone quickly. now nad drinking breakfast
[2025-01-24 08:46] VITALS: BP 137/77; PULSE 71; RESP 18; TEMP 36.7; O2SAT 99
--- NOTE | 2025-01-24 10:54 | PHA.MEDREC ---
Pharmacy Consult ? Medication Reconciliation Pharmacy has completed the medication reconciliation, tried to speak to pt who said I have no idea and said he utilizes [facility]. Called [facility] and got med list from everything filled in last 6 months, utilized claims.
[2025-01-24 11:26] VITALS: BMI 35.5
[2025-01-24 11:41] LABS: Glucose, Whole Blood 440 mg/dL (60-115)
[2025-01-24 12:00] VITALS: BP 118/72; PULSE 74; RESP 20; TEMP 36.5; O2SAT 98
--- NOTE | 2025-01-24 13:19 | P.CNUR_ITS ---
History of Present Illness Consult details Consult date: 01/24/25 Narrative: Vasile is a 54 y/o male history of kidney stones, complains right sided pain and abdominal pain. states noted blood in stool and urine, denies dysuria. Review of Systems 2 Review of Systems: Yes all other systems are reviewed and are negative Constitutional: Constitutional: Reports no additional constitutional complaints Eyes: Eyes: Reports no additional eye complaints ENT: Reports system reviewed and no additional complaints, except as documented Cardiovascular: Cardiovascular: Reports no additional cardiovascular complaints Respiratory: Respiratory: Reports no additional respiratory complaints Gastrointestinal: Gastrointestinal: Reports no additional gastrointestinal complaints Genitourinary: Genitourinary: Reports as per HPI Musculoskeletal: Musculoskeletal: Reports no additional musculoskeletal complaints Integumentary/Breasts: Skin/Breast: Reports system reviewed and no additional complaints, except as docu Neurologic: Reports system reviewed and no additional complaints, except as documented Psychiatric: Psychiatric: Reports no additional psychiatric complaints Endocrine: Endocrine: Reports no additional endocrine complaints Hematologic/Lymphatic: Hematologic/Lymphatic: Reports no additional hematologic/lymphatic complaints Allergic/Immunologic: Allergic/Immunologic: Reports no additional allergic/immunologic complaints [facility] Past Medical History Medical History Type 2 diabetes mellitus with hyperglycemia Cirrhosis Portal hypertensive gastropathy GERD (gastroesophageal reflux disease) Gastric ulcer Normocytic anemia History of substance abuse Bipolar disorder Moderate recurrent major depression HCV (hepatitis C virus) Acid reflux Right knee pain Transaminitis Left knee pain Pure hypercholesterolemia Essential hypertension Diabetes mellitus Family History Family History Father CVD (cardiovascular disease) Diabetes Thyroid disease Maternal Grandmother Diabetes Brother Respiratory failure Asthma Sister No problems noted. Daughter No problems noted. Family/Other Mental health disorder Mother Mental health disorder Essential hypertension Surgical History Surgical History H/O colonoscopy Hx of esophagogastroduodenoscopy (08/2023) History of abdominal paracentesis (06/2023) Social History Social History Household Members: Other Household Members Other:: step daughter Housing: Apartment Are you a primary palliative care physician to a significant other at home: No Do you presently have visiting nurse or other home services: No Alcohol intake: never Patient Tobacco Use Status: Current everyday Tobacco user Tobacco use type: Cigarette Cigarettes Per Day: 3 Years Smoked: 30 e-Cigarette/Vaping Use: Never Used Second Hand Smoke Exposure: No Substance Use Type: Former Substance User service: No Current occupational status: unemployed Current occupation: Right Handed Cognitive needs: Yes Hearing needs: No Vision needs: No Meds Allergies Allergy/AdvReac Type Severity Reaction Status Date / Time No Known Allergies Allergy Verified 01/23/25 23:31 Active Medications: Current Medications Acetaminophen (Acetaminophen 325 Mg Tablet) 650 mg PO Q6H PRN PRN Reason: Pain, Mild 1-3,fever,headache Buprenorphine/Naloxone (Buprenorphine/Naloxone 8/2 Mg Film) 3 film SUBLINGUAL DAILY [facility] Calcium Carbonate (Calcium Carbonate 750 Mg Tab.Chew) 750 mg PO Q4H PRN PRN Reason: Heartburn Ceftriaxone Sodium (Ceftriaxone Sodium 1 Gm Vial) 1 gm IVPUSH Q24H [facility] Last Admin: 01/24/25 07:22 Dose: 1 gm Dextrose (Dextrose 50 % 25 Gm/50 Ml Syringe) 25 gm IVPUSH Q15M PRN; Protocol PRN Reason: per Hypoglycemia Standing Ord. Furosemide (Furosemide 20 Mg Tablet) 20 mg PO DAILY [facility]; Protocol Glucose (Glucose Gel 15 Gm Gel..Gram.) 15 gm PO Q15M PRN; Protocol PRN Reason: per Hypoglycemia Standing Ord. Lactated Ringer's (Lr) 1,000 mls @ 75 mls/hr IVCONT .[id number] [facility] Last Admin: 01/24/25 03:44 Dose: 75 mls/hr Octreotide Acetate 500 mcg/ (Sodium Chloride) 501 mls @ 50.1 mls/hr IVCONT .Q10H [facility] Last Admin: 01/24/25 08:20 Dose: 50 mcg/hr, 50.1 mls/hr Insulin Human Lispro (Insulin Lispro 100 Unit/Ml 3 Ml Vial) 0 unit SUBCUT QIDACHS [facility]; Protocol Last Admin: 01/24/25 12:24 Dose: 10 unit Lidocaine (Lidocaine 4 % Patch Adh..Patch) 1 patch TRANSDERMA DAILY [facility] Magnesium Hydroxide (Milk Of Magnesia 30 Ml Oral.Susp) 30 ml PO DAILY PRN PRN Reason: Constipation Melatonin (Melatonin 3 Mg Tablet) 6 mg PO BEDTIME PRN PRN Reason: Insomnia Ondansetron HCl (Ondansetron Hcl 4 Mg/2 Ml Vial) 4 mg IVPUSH Q6H PRN PRN Reason: Nausea and Vomiting Quetiapine Fumarate (Quetiapine Fumarate 50 Mg Tablet) 150 mg PO BEDTIME [facility] Sodium Chloride (0.9 % Sodium Chloride Flush 3 Ml Syringe) 3 ml IVFLUSH QSHIFT [facility] Last Admin: 01/24/25 07:22 Dose: 3 ml Spironolactone (Spironolactone 25 Mg Tablet) 50 mg PO DAILY [facility]; Protocol Home Medications ?Medication ?Instructions ?Recorded ?Confirmed ?Last Taken ?Type quetiapine 100 mg tablet 150 mg PO BEDTIME 09/06/23 0 01/24/25 Unknown History buprenorphine 8 mg-naloxone 2 mg 3 film sublingual LIANET LY 01/24/25 01/24/25 Unknown History sublingual film Physical Exam 2 Vital Signs: Vital Signs: Last Vital Signs Temp 97.7 F 01/24/25 12:00 Pulse 74 01/24/25 12:00 Resp 20 01/24/25 12:00 BP 118/72 01/24/25 12:00 Pulse Ox 98 01/24/25 12:00 O2 Del Method Room Air 01/24/25 12:00 BMI result Body Mass Index 35.5 Results Labs 01/24/25 04:36 01/24/25 04:36 Labs: Abnormal lab results 01/24/25 01/24/25 01/24/25 Range/Units 00:04 02:46 04:36 WBC 4.3 L (4.8-10.8) X10*3/uL RBC 4.32 L 4.14 L 4.00 L (4.60-5.80) X10*6/uL Hgb 12.9 L 12.4 L 11.9 L (14.0-18.0) g/dl Hct 35.9 L 34.6 L 33.4 L (42.0-52.0) % Plt Count 88 L 77 L 70 L (160-400) X10*3/uL Potassium 3.2 L (3.3-5.1) mmol/L Anion Gap 11 L (12-20) BUN 19 H 17 H (9-16) mg/dL POC Glucose (60-115) mg/dL Random Glucose 346 H 260 H (60-115) mg/dL Calcium 8.2 L D (8.4-10.2) mg/dL Total Bilirubin 1.8 H 1.3 H (0.0-1.0) mg/dL AST 53 H 42 H (5-37) U/L ALT 56 H 42 H (0-40) U/L Alkaline Phosphatase 195 H 164 H (39-117) U/L Total Protein 5.6 L (6.5-8.0) g/dL Albumin 3.3 L (3.5-5.0) g/dL Ur Specific [place] >= 1.030 H (1.005-1.025) Urine Glucose (UA) >=1000 H (Negative) mg/dL Urine Blood Small (1+) H (Negative) Urine RBC 11-20 H (0-2) /HPF 01/24/25 01/24/25 Range/Units 07:22 11:28 WBC (4.8-10.8) X10*3/uL RBC (4.60-5.80) X10*6/uL Hgb (14.0-18.0) g/dl Hct (42.0-52.0) % Plt Count (160-400) X10*3/uL Potassium (3.3-5.1) mmol/L Anion Gap (12-20) BUN (9-16) mg/dL POC Glucose 227 H 440 H* (60-115) mg/dL Random Glucose (60-115) mg/dL Calcium (8.4-10.2) mg/dL Total Bilirubin (0.0-1.0) mg/dL AST (5-37) U/L ALT (0-40) U/L Alkaline Phosphatase (39-117) U/L Total Protein (6.5-8.0) g/dL Albumin (3.5-5.0) g/dL Ur Specific [place] (1.005-1.025) Urine Glucose (UA) (Negative) mg/dL Urine Blood (Negative) Urine RBC (0-2) /HPF Short CBC 01/24/25 01/24/25 01/24/25 Range/Units 00:04 02:46 04:36 WBC 6.2 5.1 4.3 L (4.8-10.8) X10*3/uL Hgb 12.9 L 12.4 L 11.9 L (14.0-18.0) g/dl Hct 35.9 L 34.6 L 33.4 L (42.0-52.0) % Plt Count 88 L 77 L 70 L (160-400) X10*3/uL BMP 01/24/25 01/24/25 00:04 04:36 Sodium 138 138 Potassium 4.0 3.2 L Chloride 103 107 Carbon Dioxide 25 23 BUN 19 H 17 H Creatinine 0.83 0.66 Calcium 9.0 8.2 L D Liver Function 01/24/25 01/24/25 Range/Units 00:04 04:36 Total Bilirubin 1.8 H 1.3 H (0.0-1.0) mg/dL AST 53 H 42 H (5-37) U/L ALT 56 H 42 H (0-40) U/L Alkaline Phosphatase 195 H 164 H (39-117) U/L Albumin 3.9 3.3 L (3.5-5.0) g/dL Urine 01/24/25 Range/Units 00:04 Urine Color Yellow Urine Appearance Clear Urine pH 6.0 (5.0-9.0) Ur Specific [place] >= 1.030 H (1.005-1.025) Urine Protein Negative (Neg-Trace) mg/dL Urine Glucose (UA) >=1000 H (Negative) mg/dL All other labs normal. Assessment and Plan (1) Bilateral kidney stones: Status: Acute (2) Abdominal pain: Status: Acute Plan Reevaluate with CT kidney stone protocol Procedures Date of Service Date of Service: 01/24/25
[2025-01-24] MEDS: Insulin Glargine,Hum.rec.anlog 100 UNIT/ML 10 ML VIAL 30 UNIT SUBCUT (14:55)
[2025-01-24 16:00] VITALS: BP 115/71; PULSE 78; RESP 20; TEMP 37.1; O2SAT 97
[2025-01-24 16:26] LABS: Glucose, Whole Blood 347 mg/dL (60-115)
[2025-01-24 17:07] LABS: Glucose, Whole Blood 452 mg/dL (60-115)
[2025-01-24 20:00] VITALS: BP 119/56; PULSE 66; RESP 18; TEMP 37.1; O2SAT 97
[2025-01-24 22:13] LABS: Glucose, Whole Blood 216 mg/dL (60-115)
[2025-01-25] VITALS: BP 117/69; PULSE 74; RESP 16; TEMP 36.9; O2SAT 96
[2025-01-25] MEDS: Lactated Ringers 1,000 ML 75 ML IVCONT ×2 (02:56→20:59)
[2025-01-25 04:00] VITALS: BP 139/69; PULSE 86; RESP 16; TEMP 36.7; O2SAT 98
[2025-01-25 07:07] LABS: MANUAL DIFF FLAG NO
[2025-01-25 07:27] LABS: Hematocrit 35.5 % (42.0-52.0); Hemoglobin 12.3 g/dl (14.0-18.0); Imm Gran Abs Auto 0.01 X10*3/uL (0.00-0.03); Imm Gran Pct Auto 0.3 % (0.0-0.4); Lymphocytes Absolute Auto 1.1 X10*3/uL (1.2-4.9); Mean Corpuscular HGB Conc 34.6 g/dl (31.0-36.0); Mean Corpuscular Hemoglobin 30.1 pg (27.0-33.0); Mean Corpuscular Volume 87.0 fL (80.0-98.0); NRBC Abs Auto 0.000 X10*3/uL (0.0-0.012); NRBC Pct Auto 0.0 /100WBC (0.0-0.2); Red Blood Count 4.08 X10*6/uL (4.60-5.80); White Blood Count 3.0 X10*3/uL (4.8-10.8)
[2025-01-25 07:29] LABS: Alanine Aminotransferase 38 U/L (0-40); Albumin Level 3.3 g/dL (3.5-5.0); Alkaline Phosphatase 163 U/L (39-117); Anion Gap 10 (12-20); Aspartate Amino Transferase 43 U/L (5-37); Blood Urea Nitrogen 11 mg/dL (9-16); Calcium 8.2 mg/dL (8.4-10.2); Carbon Dioxide 25 mmol/L (22-29); Chloride 111 mmol/L (96-108); Creatinine Clr Calc Pharmacy 124.5; Estimated Glomerular Filt Rate > 60; Platelet Count 65 X10*3/uL (160-400); Potassium 3.8 mmol/L (3.3-5.1); Sodium 142 mmol/L (135-145); Total Protein 6.0 g/dL (6.5-8.0)
[2025-01-25 07:37] LABS: Glucose, Whole Blood 191 mg/dL (60-115)
[2025-01-25 07:42] VITALS: BP 112/55; PULSE 81; RESP 20; TEMP 36.3; O2SAT 98
[2025-01-25] MEDS: 0.9 % Sodium Chloride Flush 3 ML SYRINGE IVFLUSH (08:31)
[2025-01-25 12:00] VITALS: BP 122/77; PULSE 70; RESP 18; TEMP 37.4; O2SAT 95
[2025-01-25 12:12] LABS: Glucose, Whole Blood 229 mg/dL (60-115)
--- NOTE | 2025-01-25 12:25 | MHC.CM.PN ---
FROM CHART REVIEW ONLY/Patient refused to speak with CM. Patient appears to be a low fall risk so home self care is the tentative plan. CM has initiated and will follow [facility] dc planning. No apparent HCP, PCP, nor Contacts. Patient is on Suboxone. CM will follow.
[2025-01-25] MEDS: iohexoL 350 MG/ML 100 ML INFUS..BTL IV (15:16)
[2025-01-25] MEDS: iohexoL 350 MG/ML 100 ML INFUS..BTL 85 ML IV (15:56)
[2025-01-25 16:00] VITALS: BP 132/68; PULSE 68; RESP 17; TEMP 37.1; O2SAT 95
--- NOTE | 2025-01-25 16:08 | P.PNIM_ITS ---
Subjective Subjective Date of Service: 01/25/25 Interval History: f/u rectal bleeding Patient denies further rectal bleeding No abdominal pain, nausea, vomiting, hematemesis Plan for EGD/colonoscopy tomorrow Review of Systems Review of Systems: Yes all other systems are reviewed and are negative Physical Exam 2 Exam: Exam: General: AOx3, no acute distress.mild scleral icterus Resp: CTA bilaterally CVS: S1, S2, RRR GI: +BS, NT, distended Skin: Warm, dry Neuro: Cranial nerves II-XII grossly intact bilaterally. Motor grossly intact bilaterally Extremities: No edema Psych: Appropriate affect Vital Signs: Vital Signs: Last Vital Signs Temp 99.3 F 01/25/25 12:00 Pulse 70 01/25/25 12:00 Resp 18 01/25/25 12:00 BP 122/77 01/25/25 12:00 Pulse Ox 95 01/25/25 12:00 O2 Del Method Room Air 01/25/25 12:00 BMI result Body Mass Index 35.5 Objective Data Active Medications Acetaminophen (Acetaminophen 325 Mg Tablet) 650 mg PO Q6H PRN PRN Reason: Pain, Mild 1-3,fever,headache Buprenorphine/Naloxone (Buprenorphine/Naloxone 8/2 Mg Film) 1 film SUBLINGUAL TID [facility] Last Admin: 01/25/25 14:46 Dose: 1 film Documented By: FLORINDA Calcium Carbonate (Calcium Carbonate 750 Mg Tab.Chew) 750 mg PO Q4H PRN PRN Reason: Heartburn Ceftriaxone Sodium (Ceftriaxone Sodium 1 Gm Vial) 1 gm IVPUSH Q24H [facility] Last Admin: 01/25/25 08:18 Dose: 1 gm Documented By: FLORINDA Dextrose (Dextrose 50 % 25 Gm/50 Ml Syringe) 25 gm IVPUSH Q15M PRN; Protocol PRN Reason: per Hypoglycemia Standing Ord. Furosemide (Furosemide 20 Mg Tablet) 20 mg PO DAILY [facility]; Protocol Last Admin: 01/25/25 08:52 Dose: 20 mg Documented By: FLORINDA Glucose (Glucose Gel 15 Gm Gel..Gram.) 15 gm PO Q15M PRN; Protocol PRN Reason: per Hypoglycemia Standing Ord. Lactated Ringer's (Lr) 1,000 mls @ 75 mls/hr IVCONT .[id number] [facility] Last Admin: 01/25/25 02:56 Dose: 75 mls/hr Documented By: WALLACE Octreotide Acetate 500 mcg/ (Sodium Chloride) 501 mls @ 50.1 mls/hr IVCONT .Q10H [facility] Last Admin: 01/25/25 04:07 Dose: 50 mcg/hr, 50.1 mls/hr Documented By: WALLACE Insulin Human Lispro (Insulin Lispro 100 Unit/Ml 3 Ml Vial) 0 unit SUBCUT QIDACHS [facility]; Protocol Last Admin: 01/25/25 14:10 Dose: 4 unit Documented By: FLORINDA Lidocaine (Lidocaine 4 % Patch Adh..Patch) 1 patch TRANSDERMA DAILY [facility] Last Admin: 01/25/25 08:37 Dose: Not Given Documented By: FLORINDA Non-Admin Reason: Patient Refused Magnesium Hydroxide (Milk Of Magnesia 30 Ml Oral.Susp) 30 ml PO DAILY PRN PRN Reason: Constipation Melatonin (Melatonin 3 Mg Tablet) 6 mg PO BEDTIME PRN PRN Reason: Insomnia Ondansetron HCl (Ondansetron Hcl 4 Mg/2 Ml Vial) 4 mg IVPUSH Q6H PRN PRN Reason: Nausea and Vomiting Polyethylene Glycol/Electrolytes (Peg 3350/Na Sulf,Bicarb,Cl/Kcl 4,000 Ml Soln.Recon) 4,000 ml PO ONCE ONE Stop: 01/25/25 16:31 Quetiapine Fumarate (Quetiapine Fumarate 50 Mg Tablet) 150 mg PO BEDTIME [facility] Last Admin: 01/24/25 21:42 Dose: 150 mg Documented By: WALLACE Sodium Chloride (0.9 % Sodium Chloride Flush 3 Ml Syringe) 3 ml IVFLUSH QSHIFT [facility] Last Admin: 01/25/25 08:31 Dose: 3 ml Documented By: FLORINDA Spironolactone (Spironolactone 25 Mg Tablet) 50 mg PO DAILY [facility]; Protocol Last Admin: 01/25/25 08:52 Dose: 50 mg Documented By: FLORINDA Labs 01/25/25 06:21 01/25/25 06:21 Labs: Laboratory Results - last 24 hr 01/24/25 01/24/25 01/24/25 13:56 17:03 20:59 MCV MCH MCHC RDW Plt Count MPV Immature Gran % (Auto) Neut % (Auto) Lymph % (Auto) Mower % (Auto) Eos % (Auto) Baso % (Auto) Lymph # (Auto) Mower # (Auto) Eos # (Auto) Baso # (Auto) Abs Immat Gran (auto) Absolute Neuts (auto) Absolute Nucleated RBC Nucleated RBC % (auto) Anion Gap Estim Creat Clear Calc Estimated GFR POC Glucose 347 H 452 H* 216 H Random Glucose Calcium Total Bilirubin AST ALT Alkaline Phosphatase Total Protein Albumin 01/25/25 01/25/25 01/25/25 06:21 07:28 12:03 MCV 87.0 MCH 30.1 MCHC 34.6 RDW 13.6 Plt Count 65 L MPV 10.4 Immature Gran % (Auto) 0.3 Neut % (Auto) 53.6 Lymph % (Auto) 35.2 Mower % (Auto) 7.6 Eos % (Auto) 3.0 Baso % (Auto) 0.3 Lymph # (Auto) 1.1 L Mower # (Auto) 0.2 Eos # (Auto) 0.1 Baso # (Auto) 0.0 Abs Immat Gran (auto) 0.01 Absolute Neuts (auto) 1.6 L Absolute Nucleated RBC 0.000 Nucleated RBC % (auto) 0.0 Anion Gap 10 L Estim Creat Clear Calc 124.5 Estimated GFR > 60 POC Glucose 191 H 229 H Random Glucose 174 H Calcium 8.2 L Total Bilirubin 1.4 H AST 43 H ALT 38 Alkaline Phosphatase 163 H Total Protein 6.0 L Albumin 3.3 L Assessment and Plan (1) Acute lower gastrointestinal bleeding: Status: Acute (2) BRBPR (bright red blood per rectum): Status: Acute (3) Hematuria: Status: Acute Plan 54-year-old male with a past medical history of HTN, HLD, dm, hep C, liver cirrhosis, history of variceal bleed, anemia, portal hypertensive gastropathy; GERD, thrombocytopenia, anxiety, depression, bipolar disorder, history of substance use disorder, peptic ulcer disease; presented to the today with a chief complaint of bright red blood per rectum. BRBPR: Patient has prior history of variceal bleed. Currently denies any hematemesis. Blood pressure is stable. Serial H&H GI - plan for EGD/colonoscopy tomorrow. Clear liquid diet. Daily CBC, CMP and INR. Abdominal ultrasound Abdominal ultrasound with cirrhotic morphology of the liver. No ascites present. Normal gallbladder and bile ducts. There is a left renal nonobstructing midpole calculus measuring 5 mm. Splenomegaly. Clear liquid diet, NPO after midnight Gentle IV fluids History of thrombocytopenia: Platelets were 77 on presentation, currently 65. Patient has similar values in the past. Likely related to his liver disease. Monitor CBC Diabetes: Patient on 75 units of Lantus plus metformin at home. Hold home regimen. Insulin sliding scale for now. Monitor POC glucose and adjust insulins accordingly. Hematuria: Urology consult- A/P CT with IV contrast CT pending DVT prophylaxis: SCD boots Code status: Full code Continued need for hospitalization: Plan for EGD/colonoscopy tomorrow, monitoring of labs Quality Stroke Does the patient have a stroke diagnosis?: No VTE Prior VTE?: No VTE Risk Level:: Medical - moderate - high VTE Device Contraindication: N/A - Device Ordered VTE Drug Contraindication: Treatment Not Indicated
--- NOTE | 2025-01-25 16:15 | P.PNGI_ITS ---
Subjective Subjective Date of Service: 01/25/25 Interval History: Seen at bedside. Demonstrates frustration for NPO status yesterday, despite EGD/colonoscopy being scheduled not until Saturday. Advised clear liquid diet today, although patient is adamant that he wants to have something solid for food later today. Says was able to do good prep despite taking solid food at previous colonoscopy as well. Critical Care Time (minutes): 0 Physical Exam 2 Exam: Exam: Awake and alert, lying in stretcher Abdomen soft, mildly distended Vital Signs: Vital Signs: Last Vital Signs Temp 99.3 F 01/25/25 12:00 Pulse 70 01/25/25 12:00 Resp 18 01/25/25 12:00 BP 122/77 01/25/25 12:00 Pulse Ox 95 01/25/25 12:00 O2 Del Method Room Air 01/25/25 12:00 BMI result Body Mass Index 35.5 Objective Data Labs 01/25/25 06:21 01/25/25 06:21 Labs: Laboratory Results - last 24 hr 01/24/25 01/24/25 01/24/25 13:56 17:03 20:59 WBC RBC Hgb Hct MCV MCH MCHC RDW Plt Count MPV Immature Gran % (Auto) Neut % (Auto) Lymph % (Auto) [place] % (Auto) Eos % (Auto) Baso % (Auto) Lymph # (Auto) [place] # (Auto) Eos # (Auto) Baso # (Auto) Abs Immat Gran (auto) Absolute Neuts (auto) Absolute Nucleated RBC Nucleated RBC % (auto) Sodium Potassium Chloride Carbon Dioxide Anion Gap BUN Creatinine Estim Creat Clear Calc Estimated GFR POC Glucose 347 H 452 H* 216 H Random Glucose Calcium Total Bilirubin AST ALT Alkaline Phosphatase Total Protein Albumin 01/25/25 01/25/25 01/25/25 06:21 07:28 12:03 WBC 3.0 L RBC 4.08 L Hgb 12.3 L Hct 35.5 L MCV 87.0 MCH 30.1 MCHC 34.6 RDW 13.6 Plt Count 65 L MPV 10.4 Immature Gran % (Auto) 0.3 Neut % (Auto) 53.6 Lymph % (Auto) 35.2 [place] % (Auto) 7.6 Eos % (Auto) 3.0 Baso % (Auto) 0.3 Lymph # (Auto) 1.1 L [place] # (Auto) 0.2 Eos # (Auto) 0.1 Baso # (Auto) 0.0 Abs Immat Gran (auto) 0.01 Absolute Neuts (auto) 1.6 L Absolute Nucleated RBC 0.000 Nucleated RBC % (auto) 0.0 Sodium 142 Potassium 3.8 Chloride 111 H Carbon Dioxide 25 Anion Gap 10 L BUN 11 Creatinine 0.75 Estim Creat Clear Calc 124.5 Estimated GFR > 60 POC Glucose 191 H 229 H Random Glucose 174 H Calcium 8.2 L Total Bilirubin 1.4 H AST 43 H ALT 38 Alkaline Phosphatase 163 H Total Protein 6.0 L Albumin 3.3 L Imaging US - abdomen: Radiologist's impression: 1. Cirrhotic morphology of the liver. No suspicious focal liver lesion. 2. There is no ascites present. 3. Normal gallbladder and bile ducts. 4. There is a left renal nonobstructing mid pole calculus measuring 5 mm. 5. There is splenomegaly. Procedures Date of Service Date of Service: 01/25/25 Progress Note: A&P Assessment and plan (1) BRBPR (bright red blood per rectum): Status: Acute (2) Abdominal pain: Status: Acute (3) Anemia: Status: Acute (4) Cirrhosis: Status: Acute Plan Upper endoscopy and colonoscopy tentatively scheduled for tomorrow for i) variceal screening due to underlying cirrhosis, ii) anemia and iii) recent BRBPR. To recall, patient had outpatient elective procedures scheduled last month, but left from preop due to heightened anxiety related to the procedure. He was again counseled that procedures will most likely be in the afternoon tomorrow, but may be moved up if we have any cancellation. Clear liquid diet today, NPO after midnight PEG prep ordered Time Spent With Patient Time: Total time managing care of this patient today ____ minutes. Quality Stroke Does the patient have a stroke diagnosis?: No VTE Prior VTE?: No VTE Risk Level:: Medical - moderate - high VTE Device Contraindication: N/A - Device Ordered VTE Drug Contraindication: Treatment Not Indicated
[2025-01-25 16:22] LABS: Glucose, Whole Blood 249 mg/dL (60-115)
[2025-01-25] MEDS: PEG 3350/Na Sulf,Bicarb,Cl/KCL 4,000 ML SOLN.RECON 4000 ML PO (17:15)
[2025-01-25 19:25] VITALS: BP 143/68; PULSE 81; RESP 16; TEMP 36.6; O2SAT 98
[2025-01-25 19:49] LABS: Glucose, Whole Blood 268 mg/dL (60-115)
[2025-01-26] VITALS (12 sets, daily range): BP systolic 99–177; BP diastolic 55–106; PULSE 57–74; RESP 12–20; TEMP 36.3–37.8; O2SAT 69–97
[2025-01-26 07:24] LABS: Glucose, Whole Blood 159 mg/dL (60-115)
[2025-01-26 07:27] LABS: Hematocrit 32.7 % (42.0-52.0); Hemoglobin 11.2 g/dl (14.0-18.0); Imm Gran Abs Auto 0.01 X10*3/uL (0.00-0.03); Imm Gran Pct Auto 0.4 % (0.0-0.4); Lymphocytes Absolute Auto 0.9 X10*3/uL (1.2-4.9); MANUAL DIFF FLAG SCAN; Mean Corpuscular HGB Conc 34.3 g/dl (31.0-36.0); Mean Corpuscular Hemoglobin 29.9 pg (27.0-33.0); Mean Corpuscular Volume 87.2 fL (80.0-98.0); NRBC Abs Auto 0.000 X10*3/uL (0.0-0.012); NRBC Pct Auto 0.0 /100WBC (0.0-0.2); Red Blood Count 3.75 X10*6/uL (4.60-5.80); SCAN SMEAR FLAG 1
[2025-01-26 07:30] LABS: Platelet Count 61 X10*3/uL (160-400); White Blood Count 2.4 X10*3/uL (4.8-10.8)
[2025-01-26 07:52] LABS: Alanine Aminotransferase 30 U/L (0-40); Albumin Level 3.1 g/dL (3.5-5.0); Alkaline Phosphatase 148 U/L (39-117); Anion Gap 8 (12-20); Aspartate Amino Transferase 36 U/L (5-37); Blood Urea Nitrogen 8 mg/dL (9-16); Calcium 7.9 mg/dL (8.4-10.2); Carbon Dioxide 27 mmol/L (22-29); Chloride 111 mmol/L (96-108); Creatinine Clr Calc Pharmacy 122.9; Estimated Glomerular Filt Rate > 60; Potassium 3.8 mmol/L (3.3-5.1); Sodium 142 mmol/L (135-145); Total Protein 5.5 g/dL (6.5-8.0)
[2025-01-26 07:54] LABS: INTERNATIONAL NORM RATIO 1.2 (0.9-1.1); Prothrombin Time 13.5 SEC (10.9-12.4)
[2025-01-26] MEDS: 0.9 % Sodium Chloride Flush 3 ML SYRINGE IVFLUSH ×3 (09:37→21:23)
--- NOTE | 2025-01-26 09:51 | PC.NURSE ---
author spoke with Dr. Domingo regarding trending lab values and she stated okay to proceed. no interventions at this time.
--- NOTE | 2025-01-26 10:19 | PC.NURSE ---
Patient is uncooperative at times, refusing to answer all questions. Assessment Analyst requested.
--- NOTE | 2025-01-26 11:02 | MHC.SHP ---
Pre-Procedural Eval Section A - 24 Hr Update-Section A only Date of Service: 01/26/25 The patient is an INPATIENT: Yes The patient has been examined within 24 hours of the surgical procedure. The History & Physical has been completed within 30 days and I have reviewed it.: Yes Section B - Complete if H&P > 30 days Chief Complaint: BRBPR, portal vein thrombosis Allergies: Allergies Allergy/AdvReac Type Severity Reaction Status Date / Time No Known Allergies Allergy Verified 01/23/25 23:31 Plan Diagnosis/Plan: Unchanged I have reviewed the history and physical and performed a pertinent physical examination on my patient. No changes have occurred unless specified. Time Spent With Patient Time: Total time managing care of this patient today ____ minutes.
--- NOTE | 2025-01-26 11:04 | PC.NURSE ---
Humanities Instructor present. Patient stated that he drank 1/2 prep with clear results, and refused enema. Dr. Domingo educated patient and stated will proceed with both procedures, patient aware that colonoscopy may not be a complete exam as report from floor RN stated patient only drank a small amount of prep and that patient was refusing to drink it.
--- NOTE | 2025-01-26 11:05 | HO.ANESPROP2 ---
HPI - Anesthesia Eval Consult details Narrative: For EGD an colonoscopy - GI bleed PMFSH Active Problems Active Problems: All Active Problems Hematuria (Acute) Abdominal pain (Acute) Bilateral kidney stones (Acute) Acute upper gastrointestinal bleeding (Acute) BRBPR (bright red blood per rectum) (Acute) Nephrolithiasis (Acute) Polyuria (Acute) Skin lesion (Acute) Post-traumatic osteoarthritis of left knee (Acute) Opioid dependence on agonist therapy (Acute) Pre-op evaluation (Acute) Hospital discharge follow-up (Acute) NSAID long-term use (Acute) Abdominal ascites (Acute) Acute lower gastrointestinal bleeding (Acute) Physical exam (Acute) Anemia (Acute) Hypovitaminosis D (Acute) Arthritis of both knees (Acute) Patellofemoral pain syndrome of both knees (Acute) Type 2 diabetes mellitus with hyperglycemia (Acute) Cirrhosis (Acute) History of substance abuse (Acute) Bipolar disorder (Acute) Moderate recurrent major depression (Acute) Acid reflux (Acute) Right knee pain (Acute) Transaminitis (Acute) Left knee pain (Acute) Diabetes mellitus (Acute) Pure hypercholesterolemia (Acute) Essential hypertension (Acute) Past Medical History Medical History Type 2 diabetes mellitus with hyperglycemia Cirrhosis Portal hypertensive gastropathy GERD (gastroesophageal reflux disease) Gastric ulcer Normocytic anemia History of substance abuse Bipolar disorder Moderate recurrent major depression HCV (hepatitis C virus) Acid reflux Right knee pain Transaminitis Left knee pain Pure hypercholesterolemia Essential hypertension Diabetes mellitus Family History Family History Father CVD (cardiovascular disease) Diabetes Thyroid disease Maternal Grandmother Diabetes Brother Respiratory failure Asthma Sister No problems noted. Daughter No problems noted. Family/Other Mental health disorder Mother Mental health disorder Essential hypertension Family history of problems with anesthesia: No Surgical History Surgical History H/O colonoscopy Hx of esophagogastroduodenoscopy (08/2023) History of abdominal paracentesis (06/2023) History of Problems with Anesthesia: No Social History Social History Household Members: Other Household Members Other:: step daughter Housing: Apartment Are you a primary healthcare consultant to a significant other at home: No Do you presently have visiting nurse or other home services: No Alcohol intake: never Patient Tobacco Use Status: Current everyday Tobacco user Tobacco use type: Cigarette Cigarettes Per Day: 3 Years Smoked: 30 e-Cigarette/Vaping Use: Never Used Second Hand Smoke Exposure: No Substance Use Type: Former Substance User service: No Current occupational status: unemployed Current occupation: Right Handed Cognitive needs: Yes Hearing needs: No Vision needs: No Meds Allergies Allergy/AdvReac Type Severity Reaction Status Date / Time No Known Allergies Allergy Verified 01/23/25 23:31 Active Medications: Current Medications Acetaminophen (Acetaminophen 325 Mg Tablet) 650 mg PO Q6H PRN PRN Reason: Pain, Mild 1-3,fever,headache Buprenorphine/Naloxone (Buprenorphine/Naloxone 8/2 Mg Film) 1 film SUBLINGUAL TID [facility] Last Admin: 01/26/25 09:36 Dose: 1 film Calcium Carbonate (Calcium Carbonate 750 Mg Tab.Chew) 750 mg PO Q4H PRN PRN Reason: Heartburn Ceftriaxone Sodium (Ceftriaxone Sodium 1 Gm Vial) 1 gm IVPUSH Q24H [facility] Last Admin: 01/26/25 09:36 Dose: 1 gm Dextrose (Dextrose 50 % 25 Gm/50 Ml Syringe) 25 gm IVPUSH Q15M PRN; Protocol PRN Reason: per Hypoglycemia Standing Ord. Furosemide (Furosemide 20 Mg Tablet) 20 mg PO DAILY [facility]; Protocol Last Admin: 01/25/25 08:52 Dose: 20 mg Glucose (Glucose Gel 15 Gm Gel..Gram.) 15 gm PO Q15M PRN; Protocol PRN Reason: per Hypoglycemia Standing Ord. Octreotide Acetate 500 mcg/ (Sodium Chloride) 501 mls @ 50.1 mls/hr IVCONT .Q10H [facility] Last Admin: 01/26/25 03:22 Dose: 50 mcg/hr, 50.1 mls/hr Insulin Human Lispro (Insulin Lispro 100 Unit/Ml 3 Ml Vial) 0 unit SUBCUT QIDACHS [facility]; Protocol Last Admin: 01/26/25 09:37 Dose: 2 unit Lidocaine (Lidocaine 4 % Patch Adh..Patch) 1 patch TRANSDERMA DAILY [facility] Last Admin: 01/26/25 09:40 Dose: Not Given Magnesium Hydroxide (Milk Of Magnesia 30 Ml Oral.Susp) 30 ml PO DAILY PRN PRN Reason: Constipation Melatonin (Melatonin 3 Mg Tablet) 6 mg PO BEDTIME PRN PRN Reason: Insomnia Ondansetron HCl (Ondansetron Hcl 4 Mg/2 Ml Vial) 4 mg IVPUSH Q6H PRN PRN Reason: Nausea and Vomiting Quetiapine Fumarate (Quetiapine Fumarate 50 Mg Tablet) 150 mg PO BEDTIME [facility] Last Admin: 01/25/25 20:52 Dose: 150 mg Sodium Chloride (0.9 % Sodium Chloride Flush 3 Ml Syringe) 3 ml IVFLUSH QSHIFT [facility] Last Admin: 01/26/25 09:37 Dose: 3 ml Spironolactone (Spironolactone 25 Mg Tablet) 50 mg PO DAILY [facility]; Protocol Last Admin: 01/25/25 08:52 Dose: 50 mg Home Medications ?Medication ?Instructions ?Recorded ?Confirmed ?Last Taken ?Type quetiapine 100 mg tablet 150 mg PO BEDTIME 09/06/23 01/24/25 Unknown History buprenorphine 8 mg-naloxone 2 mg 3 film sublingual DAILY 01/24/25 01/24/25 Unknown History sublingual film Exam Height,Weight and Vital Signs: Height 5 ft 6 in Weight 99.8 kg Last Vital Signs Temp 98.3 F 01/26/25 10:21 Pulse 64 01/26/25 10:21 Resp 18 01/26/25 10:21 BP 139/95 H 01/26/25 10:21 Pulse Ox 96 01/26/25 10:21 O2 Del Method Room Air 01/26/25 10:21 Pertinent Lab Results Pertinent Lab Results: Laboratory Tests 01/24/25 01/24/25 01/24/25 00:04 02:46 04:36 WBC 6.2 5.1 4.3 L RBC 4.32 L 4.14 L 4.00 L Hgb 12.9 L 12.4 L 11.9 L Hct 35.9 L 34.6 L 33.4 L MCV 83.1 83.6 83.5 MCH 29.9 30.0 29.8 MCHC 35.9 35.8 35.6 RDW 13.3 13.4 13.2 Plt Count 88 L 77 L 70 L MPV 9.4 9.8 10.4 Immature Gran % (Auto) 0.2 0.4 0.2 Neut % (Auto) 62.9 56.9 51.5 Lymph % (Auto) 25.2 30.3 35.5 [place] % (Auto) 8.1 8.7 10.1 Eos % (Auto) 3.1 3.1 2.5 Baso % (Auto) 0.5 0.6 0.2 Lymph # (Auto) 1.6 1.5 1.5 [place] # (Auto) 0.5 0.4 0.4 Eos # (Auto) 0.2 0.2 0.1 Baso # (Auto) 0.0 0.0 0.0 Abs Immat Gran (auto) 0.01 0.02 0.01 Absolute Neuts (auto) 3.9 2.9 2.2 Absolute Nucleated RBC 0.000 0.000 0.000 Nucleated RBC % (auto) 0.0 0.0 0.0 Smear Tech's Comments PT INR Sodium 138 138 Potassium 4.0 3.2 L Chloride 103 107 Carbon Dioxide 25 23 Anion Gap 14 11 L BUN 19 H 17 H Creatinine 0.83 0.66 Estim Creat Clear Calc 112.5 141.5 Estimated GFR > 60 > 60 POC Glucose Random Glucose 346 H 260 H Calcium 9.0 8.2 L D Total Bilirubin 1.8 H 1.3 H AST 53 H 42 H ALT 56 H 42 H Alkaline Phosphatase 195 H 164 H Total Protein 6.8 5.6 L Albumin 3.9 3.3 L Urine Color Yellow Urine Appearance Clear Urine pH 6.0 Ur Specific [place] >= 1.030 H Urine Protein Negative Urine Glucose (UA) >=1000 H Urine Ketones Trace Urine Blood Small (1+) H Urine Nitrite Negative Ur Leukocyte Esterase Negative Urine RBC 11-20 H Urine WBC 0-5 Ur Squamous Epith Cells 0-2 Urine Bacteria None Seen Hyaline Casts 0-2 Stool Occult Blood POSITIVE 01/24/25 01/24/25 01/24/25 07:22 11:28 13:56 WBC RBC Hgb Hct MCV MCH MCHC RDW Plt Count MPV Immature Gran % (Auto) Neut % (Auto) Lymph % (Auto) [place] % (Auto) Eos % (Auto) Baso % (Auto) Lymph # (Auto) [place] # (Auto) Eos # (Auto) Baso # (Auto) Abs Immat Gran (auto) Absolute Neuts (auto) Absolute Nucleated RBC Nucleated RBC % (auto) Smear Tech's Comments PT INR Sodium Potassium Chloride Carbon Dioxide Anion Gap BUN Creatinine Estim Creat Clear Calc Estimated GFR POC Glucose 227 H 440 H* 347 H Random Glucose Calcium Total Bilirubin AST ALT Alkaline Phosphatase Total Protein Albumin Urine Color Urine Appearance Urine pH Ur Specific [place] Urine Protein Urine Glucose (UA) Urine Ketones Urine Blood Urine Nitrite Ur Leukocyte Esterase Urine RBC Urine WBC Ur Squamous Epith Cells Urine Bacteria Hyaline Casts Stool Occult Blood 01/24/25 01/24/25 01/25/25 17:03 20:59 06:21 WBC 3.0 L RBC 4.08 L Hgb 12.3 L Hct 35.5 L MCV 87.0 MCH 30.1 MCHC 34.6 RDW 13.6 Plt Count 65 L MPV 10.4 Immature Gran % (Auto) 0.3 Neut % (Auto) 53.6 Lymph % (Auto) 35.2 [place] % (Auto) 7.6 Eos % (Auto) 3.0 Baso % (Auto) 0.3 Lymph # (Auto) 1.1 L [place] # (Auto) 0.2 Eos # (Auto) 0.1 Baso # (Auto) 0.0 Abs Immat Gran (auto) 0.01 Absolute Neuts (auto) 1.6 L Absolute Nucleated RBC 0.000 Nucleated RBC % (auto) 0.0 Smear Tech's Comments PT INR Sodium 142 Potassium 3.8 Chloride 111 H Carbon Dioxide 25 Anion Gap 10 L BUN 11 Creatinine 0.75 Estim Creat Clear Calc 124.5 Estimated GFR > 60 POC Glucose 452 H* 216 H Random Glucose 174 H Calcium 8.2 L Total Bilirubin 1.4 H AST 43 H ALT 38 Alkaline Phosphatase 163 H Total Protein 6.0 L Albumin 3.3 L Urine Color Urine Appearance Urine pH Ur Specific [place] Urine Protein Urine Glucose (UA) Urine Ketones Urine Blood Urine Nitrite Ur Leukocyte Esterase Urine RBC Urine WBC Ur Squamous Epith Cells Urine Bacteria Hyaline Casts Stool Occult Blood 01/25/25 01/25/25 01/25/25 07:28 12:03 15:49 WBC RBC Hgb Hct MCV MCH MCHC RDW Plt Count MPV Immature Gran % (Auto) Neut % (Auto) Lymph % (Auto) [place] % (Auto) Eos % (Auto) Baso % (Auto) Lymph # (Auto) [place] # (Auto) Eos # (Auto) Baso # (Auto) Abs Immat Gran (auto) Absolute Neuts (auto) Absolute Nucleated RBC Nucleated RBC % (auto) Smear Tech's Comments PT INR Sodium Potassium Chloride Carbon Dioxide Anion Gap BUN Creatinine Estim Creat Clear Calc Estimated GFR POC Glucose 191 H 229 H 249 H Random Glucose Calcium Total Bilirubin AST ALT Alkaline Phosphatase Total Protein Albumin Urine Color Urine Appearance Urine pH Ur Specific [place] Urine Protein Urine Glucose (UA) Urine Ketones Urine Blood Urine Nitrite Ur Leukocyte Esterase Urine RBC Urine WBC Ur Squamous Epith Cells Urine Bacteria Hyaline Casts Stool Occult Blood 01/25/25 01/26/25 01/26/25 19:42 06:37 07:13 WBC 2.4 L RBC 3.75 L Hgb 11.2 L Hct 32.7 L MCV 87.2 MCH 29.9 MCHC 34.3 RDW 13.7 Plt Count 61 L MPV 10.3 Immature Gran % (Auto) 0.4 Neut % (Auto) 49.4 Lymph % (Auto) 38.6 [place] % (Auto) 8.7 Eos % (Auto) 2.5 Baso % (Auto) 0.4 Lymph # (Auto) 0.9 L [place] # (Auto) 0.2 Eos # (Auto) 0.1 Baso # (Auto) 0.0 Abs Immat Gran (auto) 0.01 Absolute Neuts (auto) 1.2 L Absolute Nucleated RBC 0.000 Nucleated RBC % (auto) 0.0 Smear Tech's Comments VERIFIED PT 13.5 H INR 1.2 H Sodium 142 Potassium 3.8 Chloride 111 H Carbon Dioxide 27 Anion Gap 8 L BUN 8 L Creatinine 0.76 Estim Creat Clear Calc 122.9 Estimated GFR > 60 POC Glucose 268 H 159 H Random Glucose 156 H Calcium 7.9 L Total Bilirubin 1.4 H AST 36 ALT 30 Alkaline Phosphatase 148 H Total Protein 5.5 L Albumin 3.1 L Urine Color Urine Appearance Urine pH Ur Specific [place] Urine Protein Urine Glucose (UA) Urine Ketones Urine Blood Urine Nitrite Ur Leukocyte Esterase Urine RBC Urine WBC Ur Squamous Epith Cells Urine Bacteria Hyaline Casts Stool Occult Blood Airway Mallampati Class: II TM Dist: >3cm Neck ROM: Full Denture: Upper and Lower Heart: ok Lungs: ok Assessment and Plan Assessment Anesthesia Assessment: Anesthesia Plan Discussed and Chart Reviewed Final Anesthetic Review Family History of Problems with Anesthesia: No History of Problems with Anesthesia: No NPO: Yes ASA Class: III Final Preanesthetic Review: No Changes in Pt Med Stat, Meds/Allgs Chart Reviewed, Consent Obtained/Reviewed and Anes Risks/Benef Reviewed Patient Risk: Intermediate Procedure Risk: Intermediate Anesthetic Plan Anesthetic Plan: Agree w/ Assess. and Plan and TIVA Disposition: Standard PACU
[2025-01-26 11:07] LABS: Glucose, Whole Blood 141 mg/dL (60-115)
--- NOTE | 2025-01-26 12:03 | P.OPN-COLO_ITS ---
Colonoscopy Operative Note Operative Note Date of Service: 01/26/25 Narrative: Procedure: Upper endoscopy and colonoscopy Indication: Portal venous thrombosis, LGIB Endoscopist: Letha Domingo MD Anesthesia Provider: Dr Raúl Way Anesthesia type: MAC Instrument: [id number] and [id number] EGD Procedure:?? The procedure, indications, preparation and potential complications were reviewed with the patient, who indicated understanding and gave written informed consent to proceed. The endoscope was introduced through the mouth, and advanced to the 2nd part of the duodenum. The mucosa was carefully examined on slow withdrawal of the endoscope. The patient tolerated the procedure well. There were no immediate complications.? EGD Findings:? * Esophagus:? Normal esophageal mucosa was noted. The Z-line was at 41 cm. Two columns of grade 3 esophageal varices were noted extending up to 25 cm. [employer] 7 shooter commercial producer was affixed to the scope in the usual fashion and 1 band was applied at 37 cm with complete collapse of both the columns. * Stomach:? Erythema in a mosaic pattern consistent with portal hypertensive gastropathy. Retroflexion was performed in the cardia. Random cold forceps biopsies were taken from the stomach. * Duodenum:? Edema in the duodenum consistent with portal duodenopathy. Colonoscopy Procedure:? The patient was then turned for the colonoscopy. A digital rectal exam was performed which was abnormal for external hemorrhoids.? A distal attachment cap was affixed to the tip of the scope and the colonoscope was then inserted through the anus and advanced through the colon and advanced to the cecum at 75 cm and terminal ileum.? Appendiceal orifice and ileocecal valve were identified. Mucosa was carefully examined under high definition white light as the instrument was slowly withdrawn in a retrograde panoramic fashion. Retroflexion was performed in rectum. The procedure was not difficult. The quality of the prep was BBPS: 0+1+2 = inadequate Withdrawal time 20 minutes Limitations: No limitations Findings: Mucosa: Copious stool noted in the R side of the colon which could not be flushed off for adequate visualization. Edema, congestion and loss of vascular pattern noted in most of the colon visualized likely secondary to portal colopathy. Protruding lesions: * 2 sessile polyp of size 3-6 mm noted in descending colon. Cold snare polypectomy was performed. The polyps were completely removed and retrieved. * 6 sessile polyps of size 4 to 7 mm noted and sigmoid colon. Cold snare polypectomy was performed. The polyps were completely removed and retrieved. * 2 pedunculated polyps of size 9-10 mm noted in the sigmoid colon. Hot snare polypectomy was performed. The polyps were completely removed and retrieved. * Large internal hemorrhoids without stigmata of recent bleeding. Impression: 1. Esophageal varices (EVBL x 1) 2. Portal hypertensive gastropathy 3. Portal hypertensive duodenopathy 4. Poor prep 5. Portal colopathy 6. Total of 10 polyps removed from left colon. 7. Internal hemorrhoids Recommendations:?? * Patient with new portal vein thrombosis extending into the main portal vein. Will likely need anticoagulation, can start this 2 weeks after banding, to avoid any post banding ulcer bleeding. * Can have clears x 6 hours and then regular diet. * Cont oral PPI. Start liquid carafate TID x 2 weeks. * Increase carvedilol to 6.25 BID * Intermittent rectal bleeding likely secondary to hemorrhoids. * Repeat colonoscopy to be scheduled within a year due to poor prep and polyp burden * Avoid NSAIDs * Outpatient follow up will be scheduled with his die presser Dr Hyatt
[2025-01-26 13:11] LABS: Glucose, Whole Blood 131 mg/dL (60-115)
[2025-01-26] MEDS: Sucralfate Oral Suspension 1 GM/10 ML ORAL.SUSP PO ×2 (16:10→21:22)
--- NOTE | 2025-01-26 16:25 | P.PNIM_ITS ---
Subjective Subjective Date of Service: 01/26/25 Interval History: f/u GI bleed Patient denies further bleeding. EGD/colonoscopy today. Frustrated about NPO status and change in insulin but cannot clarify insulin dosing Review of Systems Review of Systems: Yes all other systems are reviewed and are negative Physical Exam 2 Exam: Exam: General: AOx3, no acute distress Resp: CTA bilaterally CVS: S1, S2, RRR GI: +BS, NT, distended Skin: Warm, dry Neuro: Cranial nerves II-XII grossly intact bilaterally. Motor grossly intact bilaterally Extremities: No LE edema Psych: Appropriate affect Vital Signs: Vital Signs: Last Vital Signs Temp 97.9 F 01/26/25 15:38 Pulse 63 01/26/25 15:38 Resp 18 01/26/25 15:38 BP 142/71 H 01/26/25 15:38 Pulse Ox 97 01/26/25 15:38 O2 Del Method Room Air 01/26/25 15:38 BMI result Body Mass Index 35.5 Objective Data Active Medications Acetaminophen (Acetaminophen 325 Mg Tablet) 650 mg PO Q6H PRN PRN Reason: Pain, Mild 1-3,fever,headache Buprenorphine/Naloxone (Buprenorphine/Naloxone 8/2 Mg Film) 1 film SUBLINGUAL TID [facility] Last Admin: 01/26/25 16:10 Dose: 1 film Documented By: DEV Calcium Carbonate (Calcium Carbonate 750 Mg Tab.Chew) 750 mg PO Q4H PRN PRN Reason: Heartburn Carvedilol (Carvedilol 6.25 Mg Tablet) 6.25 mg PO BID [facility]; Protocol Ceftriaxone Sodium (Ceftriaxone Sodium 1 Gm Vial) 1 gm IVPUSH Q24H [facility] Last Admin: 01/26/25 09:36 Dose: 1 gm Documented By: DEV Dextrose (Dextrose 50 % 25 Gm/50 Ml Syringe) 25 gm IVPUSH Q15M PRN; Protocol PRN Reason: per Hypoglycemia Standing Ord. Furosemide (Furosemide 20 Mg Tablet) 20 mg PO DAILY [facility]; Protocol Last Admin: 01/26/25 13:16 Dose: 20 mg Documented By: DEV Comments: PER MD HOLD MED UNTIL AFTER PROCEEDURE Glucose (Glucose Gel 15 Gm Gel..Gram.) 15 gm PO Q15M PRN; Protocol PRN Reason: per Hypoglycemia Standing Ord. Octreotide Acetate 500 mcg/ (Sodium Chloride) 501 mls @ 50.1 mls/hr IVCONT .Q10H [facility] Last Admin: 01/26/25 13:17 Dose: 50 mcg/hr, 50.1 mls/hr Documented By: DEV Insulin Human Lispro (Insulin Lispro 100 Unit/Ml 3 Ml Vial) 0 unit SUBCUT QIDACHS [facility]; Protocol Last Admin: 01/26/25 13:35 Dose: Not Given Documented By: DEV Non-Admin Reason: No Insulin Coverage Lidocaine (Lidocaine 4 % Patch Adh..Patch) 1 patch TRANSDERMA DAILY [facility] Last Admin: 01/26/25 09:40 Dose: Not Given Documented By: DEV Non-Admin Reason: Patient Refused Magnesium Hydroxide (Milk Of Magnesia 30 Ml Oral.Susp) 30 ml PO DAILY PRN PRN Reason: Constipation Melatonin (Melatonin 3 Mg Tablet) 6 mg PO BEDTIME PRN PRN Reason: Insomnia Naloxone HCl (Naloxone Hcl 0.4 Mg/Ml Vial) 0.04 mg IVPUSH Q5M PRN PRN Reason: Excessive sedation or RR < 8 Ondansetron HCl (Ondansetron Hcl 4 Mg/2 Ml Vial) 4 mg IVPUSH Q6H PRN PRN Reason: Nausea and Vomiting Quetiapine Fumarate (Quetiapine Fumarate 50 Mg Tablet) 150 mg PO BEDTIME [facility] Last Admin: 01/25/25 20:52 Dose: 150 mg Documented By: JANAE Sodium Chloride (0.9 % Sodium Chloride Flush 3 Ml Syringe) 3 ml IVFLUSH QSHIFT [facility] Last Admin: 01/26/25 16:10 Dose: 3 ml Documented By: DEV Spironolactone (Spironolactone 25 Mg Tablet) 50 mg PO DAILY [facility]; Protocol Last Admin: 01/26/25 13:15 Dose: 50 mg Documented By: DEV Comments: MED AWARE OF LATE ADMIN, PT WENT TO PROCEEDURE Sucralfate (Sucralfate Oral Suspension 1 Gm/10 Ml Oral.Susp) 1 gm PO TID [facility] Last Admin: 01/26/25 16:10 Dose: 1 gm Documented By: DEV Labs 01/26/25 06:37 01/26/25 06:37 Labs: Laboratory Results - last 24 hr 01/25/25 01/26/25 01/26/25 19:42 06:37 07:13 MCV 87.2 MCH 29.9 MCHC 34.3 RDW 13.7 Plt Count 61 L MPV 10.3 Immature Gran % (Auto) 0.4 Neut % (Auto) 49.4 Lymph % (Auto) 38.6 Wise % (Auto) 8.7 Eos % (Auto) 2.5 Baso % (Auto) 0.4 Lymph # (Auto) 0.9 L Wise # (Auto) 0.2 Eos # (Auto) 0.1 Baso # (Auto) 0.0 Abs Immat Gran (auto) 0.01 Absolute Neuts (auto) 1.2 L Absolute Nucleated RBC 0.000 Nucleated RBC % (auto) 0.0 Smear Tech's Comments VERIFIED PT 13.5 H INR 1.2 H Anion Gap 8 L Estim Creat Clear Calc 122.9 Estimated GFR > 60 POC Glucose 268 H 159 H Random Glucose 156 H Calcium 7.9 L Total Bilirubin 1.4 H AST 36 ALT 30 Alkaline Phosphatase 148 H Total Protein 5.5 L Albumin 3.1 L 01/26/25 01/26/25 10:11 13:02 MCV MCH MCHC RDW Plt Count MPV Immature Gran % (Auto) Neut % (Auto) Lymph % (Auto) Wise % (Auto) Eos % (Auto) Baso % (Auto) Lymph # (Auto) Wise # (Auto) Eos # (Auto) Baso # (Auto) Abs Immat Gran (auto) Absolute Neuts (auto) Absolute Nucleated RBC Nucleated RBC % (auto) Smear Tech's Comments PT INR Anion Gap Estim Creat Clear Calc Estimated GFR POC Glucose 141 H 131 H Random Glucose Calcium Total Bilirubin AST ALT Alkaline Phosphatase Total Protein Albumin Assessment and Plan (1) Acute upper gastrointestinal bleeding: Status: Acute (2) Abdominal ascites: Status: Acute (3) Anemia: Status: Acute (4) Portal vein thrombosis: Status: Acute Plan 54-year-old male with a past medical history of HTN, HLD, dm, hep C, liver cirrhosis, history of variceal bleed, anemia, portal hypertensive gastropathy; GERD, thrombocytopenia, anxiety, depression, bipolar disorder, history of substance use disorder, peptic ulcer disease; presented to the today with a chief complaint of bright red blood per rectum. BRBPR: Patient has prior history of variceal bleed. Currently denies any hematemesis. Blood pressure is stable. Serial H&H GI - EGD/CLS today Abdominal ultrasound with cirrhotic morphology of the liver. No ascites present. Normal gallbladder and bile ducts. There is a left renal nonobstructing midpole calculus measuring 5 mm. Splenomegaly. Gentle IV fluids Portal vein thrombosis GI aware, plan per GI post EGD History of thrombocytopenia: Platelets were 77 on presentation, currently 61. Patient has similar values in the past. Likely related to his liver disease. Monitor CBC Diabetes: Patient on ?75 units of Lantus plus metformin at home. unclear what he is taking. pharmacist unable to get clarification. pt unable to give history etiher (keeps switching dose). no family members to contact. Hold home regimen. Insulin sliding scale for now. Monitor POC glucose and adjust insulins accordingly. Hematuria: no obstructing kidney stones CT with incidental portal vein thrombosis urology consulted DVT prophylaxis: SCD boots Code status: Full code Continued need for hospitalization: GI evaluation/management Quality Stroke Does the patient have a stroke diagnosis?: No VTE Prior VTE?: No VTE Risk Level:: Medical - moderate - high VTE Device Contraindication: N/A - Device Ordered VTE Drug Contraindication: Treatment Not Indicated
[2025-01-26 16:31] LABS: Glucose, Whole Blood 318 mg/dL (60-115)
--- NOTE | 2025-01-26 17:20 | P.CDIM_ITS ---
PROVIDER RESPONSE TEXT: To clarify, the appropriate diagnosis supported by the clinical indicators: Pancytopenia: secondary to cirrhosis QUERY TEXT: PHYSICIAN'S DOCUMENTATION REQUEST Date of Query: 01/26/2025 07:22 AM EDT Patient Name: Vasile Manrique Admit Date: 01/24/2025 Dear Elizabeth Leon PA-C, A review of the medical record indicates additional documentation may be needed. Please review below and update the documentation accordingly. Clinical Indicators: LABS: WBC 3.0 RBC 4.08 PLT 65 L Abs Neuts 1.6 L Cirrhosis, Hepatitis C, thrombocytopenia. Monitor CBC Based on the above, could you clarify which of the following is the most likely type of anemia you are evaluating, treating, and/or monitoring? Pancytopenia possible, probable, suspected, etc. Other specified etiology Other (explain) Clinically unable to determine (explain) Thank you, Adamaris Moreira, CCS, CDIS Use of terms such as suspected, likely, concern for, or probable (associated with a specific diagnosis that is being evaluated, monitored, or treated as if it exists) are acceptable and can be coded in the inpatient setting, when documented at the time of discharge. Please use your independent medical judgment in providing your response. THIS QUERY IS PART OF THE PERMANENT MEDICAL RECORD
--- NOTE | 2025-01-26 17:20 | P.CDIM_ITS ---
PROVIDER RESPONSE TEXT: To clarify, the appropriate diagnosis supported by the clinical indicators: Diabetes mellitus with hyperglycemia: resolved. QUERY TEXT: PHYSICIAN'S DOCUMENTATION REQUEST Date of Query: 01/26/2025 07:27 AM EDT Patient Name: Vasile Manrique Admit Date: 01/24/2025 Dear Elizabeth Leon PA-C, A review of the medical record indicates additional documentation may be needed. Please review below and update the documentation accordingly. Clinical Indicators: LABS: 01/24/25 - POC glucose 444 H Insulin Diabetes Monitor POC glucose and adjust insulins accordingly. Please clarify if there is a diagnosis that correlates with these findings? Diabetes mellitus with hyperglycemia resolved, possible, suspected etc. Other specified diagnosis Other (explain) Clinically unable to determine (explain) Thank you, Adamaris Moreira, CCS, CDIS Use of terms such as suspected, likely, concern for, or probable (associated with a specific diagnosis that is being evaluated, monitored, or treated as if it exists) are acceptable and can be coded in the inpatient setting, when documented at the time of discharge. Please use your independent medical judgment in providing your response. THIS QUERY IS PART OF THE PERMANENT MEDICAL RECORD
[2025-01-26 21:17] LABS: Glucose, Whole Blood 289 mg/dL (60-115)
[2025-01-27 03:27] VITALS: BP 124/70; PULSE 66; RESP 18; TEMP 36.8; O2SAT 94
[2025-01-27 07:16] VITALS: BP 128/81; PULSE 64; RESP 18; TEMP 36.2; O2SAT 95
[2025-01-27 07:39] LABS: Hematocrit 33.6 % (42.0-52.0); Hemoglobin 11.5 g/dl (14.0-18.0); Mean Corpuscular HGB Conc 34.2 g/dl (31.0-36.0); Mean Corpuscular Hemoglobin 29.8 pg (27.0-33.0); Mean Corpuscular Volume 87.0 fL (80.0-98.0); NRBC Abs Auto 0.040 X10*3/uL (0.0-0.012); Red Blood Count 3.86 X10*6/uL (4.60-5.80); White Blood Count 2.9 X10*3/uL (4.8-10.8)
[2025-01-27 07:41] LABS: Glucose, Whole Blood 258 mg/dL (60-115)
[2025-01-27 07:41] LABS: INTERNATIONAL NORM RATIO 1.2 (0.9-1.1); Prothrombin Time 14.3 SEC (10.9-12.4)
[2025-01-27 07:57] LABS: NRBC Pct Auto 1.4 /100WBC (0.0-0.2); Platelet Count 59 X10*3/uL (160-400)
[2025-01-27 07:59] LABS: Alanine Aminotransferase 29 U/L (0-40); Albumin Level 3.2 g/dL (3.5-5.0); Alkaline Phosphatase 159 U/L (39-117); Anion Gap 9 (12-20); Aspartate Amino Transferase 36 U/L (5-37); Blood Urea Nitrogen 9 mg/dL (9-16); Calcium 7.8 mg/dL (8.4-10.2); Carbon Dioxide 25 mmol/L (22-29); Chloride 109 mmol/L (96-108); Creatinine Clr Calc Pharmacy 122.9; Estimated Glomerular Filt Rate > 60; Potassium 4.0 mmol/L (3.3-5.1); Sodium 139 mmol/L (135-145); Total Protein 5.5 g/dL (6.5-8.0)
[2025-01-27] MEDS: 0.9 % Sodium Chloride Flush 3 ML SYRINGE IVFLUSH (08:42)
--- NOTE | 2025-01-27 08:45 | HO.POSTANES ---
Post Anesthesia Evaluation Post Anesthesia Evaluation Date of Service: 01/27/25 Vital Signs: Vital Signs Temp Pulse Resp BP Pulse Ox O2 Del Method 01/27/25 07:16 97.1 F 64 18 128/81 95 Room Air 01/27/25 03:27 98.3 F 66 18 124/70 94 Room Air 01/26/25 23:11 100.1 F 74 18 119/66 93 Room Air 01/26/25 21:22 156/84 H Anesthesia: Monitored Mental Status: Awake Pain Control: Satisfactory Nausea/Vomiting: None Hydration: Adequate Anesthesia-Related Issues: No Anes. Related Issues
[2025-01-27] MEDS: Sucralfate Oral Suspension 1 GM/10 ML ORAL.SUSP PO (11:00)
[2025-01-27 11:23] VITALS: BP 144/70; PULSE 70; RESP 18; TEMP 36.2; O2SAT 97
[2025-01-27 11:38] LABS: Glucose, Whole Blood 240 mg/dL (60-115)
--- NOTE | 2025-01-27 13:54 | P.DS_ITS ---
DS: Providers Provider Date of Service: 01/27/25 Date of admission: 01/24/25 03:04 Date of discharge: 01/27/25 Primary care physician: Unknown Physician Consults: 01/24/25 03:03 Consult to Gastroenterology Routine Consulting Provider: [facility] Reason for consultation: BRBPR Consult to Urology Routine Consulting Provider: [facility] Reason for consultation: hematuria DS: Diagnosis Discharge Diagnosis (1) Acute upper gastrointestinal bleeding: Status: Acute (2) Abdominal ascites: Status: Acute (3) Anemia: Status: Acute (4) Portal vein thrombosis: Status: Acute DS: Summary Hospital Course Hospital Course: 54-year-old male with a past medical history of HTN, HLD, dm, hep C, liver cirrhosis, history of variceal bleed, anemia, portal hypertensive gastropathy; GERD, thrombocytopenia, anxiety, depression, bipolar disorder, history of substance use disorder, peptic ulcer disease; presented to the today with a chief complaint of bright red blood per rectum. Patient reports he had couple of episodes of BRBPR prior to coming to the hospital. Denies any lightheadedness or dizziness. Hospital course Patient admitted to telemetry where monitor failed to demonstrate any acute dysrhythmias. Patient was seen in consultation by GI; on 01/26/2025 patient underwent upper and lower endoscopies. Noted to have esophageal varices, portal hypertensive gastropathy and internal hemorrhoids. His diet was advanced without issue he had no further bleeding. As per GI recommendation his Coreg was increased to 6.25 b.i.d. and he will have Carafate slurry t.i.d. x2 weeks. At that time his PCP can start anticoagulation for his portal vein thrombus. He will follow up with GI and PCP as scheduled Time Attestation Discharge Coordination Time (in mins): 35 Quality: Safe Use of Opioids Does Pt have an Active Cancer Diagnosis on the Problem List?: No Quality: Stroke Does the patient have a stroke diagnosis?: No Physical Exam Vital Signs: Vital Signs: Last Vital Signs Temp 97.1 F 01/27/25 11:23 Pulse 70 01/27/25 11:23 Resp 18 01/27/25 11:23 BP 144/70 H 01/27/25 11:23 Pulse Ox 97 01/27/25 11:23 O2 Del Method Room Air 01/27/25 11:23 BMI result Body Mass Index 35.5 Const: Other: Awake alert no acute distress Resp: Other: Clear to auscultation bilaterally no rales rhonchi or wheezes Cardio: Other: No S4; positive S1-S2; no S3 murmurs rubs or gallops GI: Other: Soft nontender nondistended normoactive bowel sounds Extrem: Other: No edema bilaterally DS: Data Data Completed and Pending Completed studies during hospitalization [Text1]: Pending at discharge 01/26/25 11:46 Surgical [PTH] Routine Procedures Drainage of Peritoneal Cavity, Percutaneous Approach (10/08/22) Excision of Stomach, Pylorus, Via Natural or Artificial Opening Endoscopic, Diagnostic (10/08/22) Occlusion of Esophageal Vein with Extraluminal Device, Via Natural or Artificial Opening Endoscopic (07/28/23) Transfusion of Nonautologous Red Blood Cells into Peripheral Vein, Percutaneous Approach (07/28/23) Labs on day of discharge: Laboratory Results - last 24 hr 01/26/25 01/26/25 01/27/25 16:26 20:28 07:22 WBC 2.9 L RBC 3.86 L Hgb 11.5 L Hct 33.6 L MCV 87.0 MCH 29.8 MCHC 34.2 RDW 13.4 Plt Count 59 L MPV 9.9 Absolute Nucleated RBC 0.040 H Nucleated RBC % (auto) 1.4 H Smear Path Review SEE NOTE PT 14.3 H INR 1.2 H Sodium 139 Potassium 4.0 Chloride 109 H Carbon Dioxide 25 Anion Gap 9 L BUN 9 Creatinine 0.76 Estim Creat Clear Calc 122.9 Estimated GFR > 60 POC Glucose 318 H 289 H Random Glucose 277 H Calcium 7.8 L Total Bilirubin 1.0 AST 36 ALT 29 Alkaline Phosphatase 159 H Total Protein 5.5 L Albumin 3.2 L 01/27/25 01/27/25 07:33 11:32 WBC RBC Hgb Hct MCV MCH MCHC RDW Plt Count MPV Absolute Nucleated RBC Nucleated RBC % (auto) Smear Path Review PT INR Sodium Potassium Chloride Carbon Dioxide Anion Gap BUN Creatinine Estim Creat Clear Calc Estimated GFR POC Glucose 258 H 240 H Random Glucose Calcium Total Bilirubin AST ALT Alkaline Phosphatase Total Protein Albumin Discharge Plan Discharge Anticipated Discharge Date/Time: 01/27/25 13:46 Patient Disposition: Home, Self-Care Discharge Diagnosis: Esophageal varices Referrals: Physician,Unknown J [Primary Care Provider, Medical] - 1 Week Discharge Medications: New carvedilol 6.25 mg Tablet 6.25 mg PO BID Qty: 60 0RF Protocol: Hold for SBP/HR < HOLD for SBP < : 90 HOLD for HR < : 60 sucralfate 100 mg/mL Suspension 1 g PO TID Qty: 900 0RF Continued metformin 500 mg tablet extended release 24 hr 500 mg PO BID Qty: 180 1RF amlodipine 5 mg tablet 5 mg PO DAILY 90 Days Qty: 90 3RF (DME) lancets [OneTouch Delica Plus Lancet] 33 gauge [facility] [place] See Rx Instructions .ROUTE .MEDSUPPLY Qty: 200 5RF Rx Instructions: Use as directed to check blood glucose fives times daily. cholecalciferol (vitamin D3) 50 mcg (2,000 unit) capsule 50 mcg PO DAILY 90 Days Qty: 90 1RF furosemide 20 mg tablet 20 mg PO DAILY 90 Days Qty: 90 1RF Protocol: Hold for SBP< HOLD for SBP < : 90 lidocaine 5 % adhesive patch,medicated 1 patch topical DAILY 30 Days Qty: 30 1RF Rx Instructions: leave on most painful area for up to 12 hrs spironolactone 25 mg tablet 50 mg PO DAILY 90 Days Qty: 180 1RF Protocol: Hold for SBP< HOLD for SBP < : 90 buprenorphine-naloxone 8-2 mg film 3 film sublingual DAILY (DME) nonslip shower mat See Rx Instructions .Route .MEDSUPPLY Qty: 1 0RF Rx Instructions: As directed (DME) Shower Chair [facility] [place] See Rx Instructions .Route Qty: 1 0RF Rx Instructions: As directed (DME) handheld shower See Rx Instructions .Route .MEDSUPPLY Qty: 1 0RF Rx Instructions: As directed (DME) FreeStyle Nyla 3 [place] [facility] [place] See Rx Instructions .ROUTE .MEDSUPPLY Qty: 1 0RF Rx Instructions: as directed (DME) OneTouch Verio test strips Strip See Rx Instructions .ROUTE .MEDSUPPLY Qty: 200 5RF Rx Instructions: Use as directed to check blood glucose five times daily. (DME) blood-glucose meter [OneTouch Verio Flex meter] [facility] [place] See Rx Instructions .ROUTE .MEDSUPPLY Qty: 1 0RF Rx Instructions: Use as directed to check blood glucose five times daily for type II diabetes. (DME) urinal See Rx Instructions .Route .MEDSUPPLY Qty: 1 0RF Rx Instructions: As directed (DME) insulin syringe-needle U-100 1 mL 31 gauge x 5/16 syringe See Rx Instructions .Route Qty: 100 5RF Rx Instructions: As directed to administer Lantus insulin once daily. (DME) insulin syringe-needle U-100 0.3 mL 31 gauge x 5/16 syringe See Rx Instructions .Route Qty: 100 5RF Rx Instructions: As directed to administer Humalog three times daily quetiapine 100 mg tablet 150 mg PO BEDTIME (DME) Ketone Care Strip See Rx Instructions .Route Qty: 100 3RF Rx Instructions: As directed. (DME) FreeStyle Nyla 3 Plus Sensor Device See Rx Instructions .ROUTE .MEDSUPPLY Qty: 2 11RF Rx Instructions: Apply 1 new sensor every 15 days as directed to monitor blood glucose continuously. insulin lispro [Humalog KwikPen Insulin] 100 unit/mL insulin pen See Rx Instructions subcut TID MDD 96 30 Days Qty: 30 6RF Rx Instructions: 6-32 units tid with meals subcutaneously 3 times a day; (DME) pen needle, diabetic [1st Tier Unifine Pentips] 31 gauge x 5/16 needle See Rx Instructions .Route Qty: 200 6RF Rx Instructions: As directed qid Discontinued carvedilol 3.125 mg tablet 3.125 mg PO BID 90 Days Qty: 180 1RF Protocol: Hold for SBP/HR < HOLD for SBP < : 90 HOLD for HR < : 60 Discharge Orders: Discharge Order (Routine); Ordered 01/27/25 Ordered By: Antonio Myers Diet: Advance to usual diet Activity on Discharge: As tolerated Stand Alone Forms: Patient Portal Discharge page Print Language: Welsh Care Plan Goals: Continue all your medicines as taken prior to hospitalization Health Concerns: Coreg has been increased to 6.25 mg twice daily. Sucralfate 2 tsp 3 times a day has been added for your stomach Plan of Treatment: Follow up with PCP/GI as scheduled Assessment: See discharge summary
--- NOTE | 2025-01-27 15:31 | MHC.CM.PN ---
PT MEDICALLY CLEARED FOR DC HOME SELF CARE, PT HAS ARRANGED PRIVATE TRANSPORT
== END 2025-01-27 14:24 | disposition home or self-care (01) | DRG 432 ==
LOC: HO.ED 01-24 03:28 → HO.EDOVER 01-24 03:39 → HO.IMC 01-24 09:41
PROVIDERS: Internal Medicine; Physician Assistant; Student in an Organized Health Care Education/Training Program; Admitting Provider Hospitalist; Emergency Provider Emergency Medicine; Visit Provider Hospitalist
PROC: 06L38CZ Occlusion of Esophageal Vein with Extraluminal Device, Via Natural or Artificial Opening Endoscopic (ICD-10-PCS; principal; 2025-01-26 13:30)
DX: K74.69 Other cirrhosis of liver (principal); I81 Portal vein thrombosis; I85.11 Secondary esophageal varices with bleeding; D61.818 Other pancytopenia; F11.20 Opioid dependence, uncomplicated; K76.6 Portal hypertension; R31.9 Hematuria, unspecified; E11.65 Type 2 diabetes mellitus with hyperglycemia; N20.0 Calculus of kidney; F17.210 Nicotine dependence, cigarettes, uncomplicated; Z86.19 Personal history of other infectious and parasitic diseases; Z71.6 Tobacco abuse counseling; K64.8 Other hemorrhoids; K64.4 Residual hemorrhoidal skin tags; K31.89 Other diseases of stomach and duodenum; K63.5 Polyp of colon; Z79.4 Long term (current) use of insulin; Z79.84 Long term (current) use of oral hypoglycemic drugs; Z79.899 Other long term (current) drug therapy
CPT/HCPCS: 36415; 74177; 76700; 80053; 81001; 82272; 82947; 85025; 85027; 85610; 88305; 99285; J0696; J2003; J2354; J2470; J2704; J7120; Q9967

== ENCOUNTER 2025-01-24 03:04 | Outpatient (BNV) | payer OTHER, SELFPAY | END 2025-01-25 09:30 | PROVIDERS: Admitting Provider Hospitalist; Emergency Provider Emergency Medicine; Visit Provider Radiology Diagnostic Radiology | DX: N20.0 Calculus of kidney (principal); K74.60 Unspecified cirrhosis of liver; I81 Portal vein thrombosis; K76.6 Portal hypertension; K63.89 Other specified diseases of intestine; R16.1 Splenomegaly, not elsewhere classified | CPT/HCPCS: 74177; 76700 ==

== ENCOUNTER → 2025-01-24 03:04 | Outpatient (BNV) | payer OTHER, SELFPAY | PROVIDERS: Admitting Provider Hospitalist; Emergency Provider Emergency Medicine; Visit Provider Hospitalist | DX: K62.5 Hemorrhage of anus and rectum (principal) | CPT/HCPCS: 99223; 99232 ==

== ENCOUNTER → 2025-01-24 03:04 | Outpatient (BNV) | payer OTHER, SELFPAY | PROVIDERS: Admitting Provider Hospitalist; Emergency Provider Emergency Medicine; Visit Provider Urology | DX: N20.0 Calculus of kidney (principal); R10.9 Unspecified abdominal pain | CPT/HCPCS: 99222 ==

== ENCOUNTER → 2025-01-24 03:04 | Outpatient (BNV) | payer OTHER, SELFPAY | PROVIDERS: Admitting Provider Hospitalist; Emergency Provider Emergency Medicine; Visit Provider Internal Medicine | DX: K62.5 Hemorrhage of anus and rectum (principal); R10.9 Unspecified abdominal pain; D64.9 Anemia, unspecified; K74.60 Unspecified cirrhosis of liver; R18.8 Other ascites | CPT/HCPCS: 99222; 99232 ==

== ENCOUNTER 2025-02-02 09:54 | Outpatient (REF) | payer OTHER, SELFPAY | END 2025-02-02 09:55 | disposition home or self-care (01) | LOC: HO.LAB 09:54 | PROVIDERS: Absent Provider Physician Assistant Medical; PCP Internal Medicine; Visit Provider Internal Medicine | DX: Z01.84 Encounter for antibody response examination (principal); E11.65 Type 2 diabetes mellitus with hyperglycemia; Z79.4 Long term (current) use of insulin | CPT/HCPCS: 36415; 84681; 86341 ==

== ENCOUNTER 2025-02-09 09:33 | Outpatient (AMB) | payer OTHER, SELFPAY ==
--- NOTE | 2025-02-09 09:34 | A.OFFPC_ITS ---
Vital Signs 02/09/25 09:35 Height 5 ft 6 in Weight 218 lb 8 oz BMI 35.3 BP 150/80 H Blood Pressure Location Lt brachial Position Sitting Respiration 18 Pulse 89 Pulse Source Pulse Oximeter Temp Source Temporal Artery Scan Pulse Oximetry (%) 99 Oxygen Delivery Method Room Air Intake Visit Reasons: DM Manager Contracting Required: No Accompanied by: Self / Same As Patient Allergies No Known Allergies Allergy (Verified 02/09/25 09:43) Medication List - Last Reconciled 02/09/25 by Kierra Flanagan MD acetone (urine) test (Ketone Care strips) As directed. amlodipine 5 mg PO DAILY 90 days blood sugar diagnostic (OneTouch Verio test strips) Use as directed to check blood glucose five times daily. blood-glucose meter (Total Nutraceutical SolutionsTouch Verio Flex Meter) Use as directed to check blood glucose five times daily for type II diabetes. blood-glucose sensor (BaileyuStyle Nyla 3 Plus Sensor device) Apply 1 new sensor every 15 days as directed to monitor blood glucose continuously. blood-glucose,industrial electrician,cont (FreeStyle Nyla 3 [place]) as directed buprenorphine-naloxone 8-2 mg 3 film sublingual DAILY carvedilol 6.25 mg See Protocol PO BID cholecalciferol (vitamin D3) 50 mcg PO DAILY 90 days furosemide 20 mg See Protocol PO DAILY 90 days [handheld shower As directed] insulin lispro (Humalog KwikPen (U-100) Insulin) 6-32 units tid with meals subcutaneously 3 times a day; 30 days MDD 96 insulin syringe-needle U-100 As directed to administer Lantus insulin once daily. insulin syringe-needle U-100 As directed to administer Humalog three times daily lancets (Total Nutraceutical SolutionsTouch Delica Plus Lancet) Use as directed to check blood glucose fives times daily. lidocaine 5% 1 patch topical DAILY 30 days metformin ER 500 mg PO BID [nonslip shower mat As directed] pen needle, diabetic (1st Tier Unifine Pentips) As directed qid quetiapine 150 mg PO BEDTIME Shower Chair As directed spironolactone 50 mg See Protocol PO DAILY 90 days sucralfate 1 g (10 mL) PO TID [urinal As directed] Tobacco use date assessed: 02/09/25 Dental Screening Dental Screen Date: 02/09/25 Did you have a dental visit in the last 12 months?: No Did you have a dental problem in the last 6 months where you did not have access to dental care?: No Was dental information given to patient?: No HPI HPI Comments History of Present Illness Details The patient is a 54-year-old male presenting for follow-up of diabetes mellitus type 2 and management of portal hypertension secondary to cirrhosis. The patient has a history of diabetes mellitus type 2, currently managed with insulin therapy. His recent hemoglobin A1c level is 11.6, indicating poor glycemic control. He underwent a diabetic eye exam in October, which showed no active diabetic retinopathy. The patient also has portal hypertension secondary to cirrhosis, which is a consequence of previously treated hepatitis C. He was hospitalized earlier this month due to portal vein thrombosis and underwent a colonoscopy, which revealed tubular adenoma and hyperplastic polyp. A CT scan of the abdomen showed ascites, and an upper endoscopy revealed esophageal varices and internal hemorrhoids. He will start with Eliquis and was advised that if bleeding starts he needs to stop taking it. The patient has a history of bipolar disorder and opioid dependence, which is well-controlled with Suboxone. [facility] Medical History (Updated 02/09/25 @ 10:12 by Kierra Flanagan MD) Cirrhosis Normocytic anemia Portal vein thrombosis Bilateral kidney stones Abdominal ascites Anemia Type 2 diabetes mellitus with hyperglycemia Portal hypertensive gastropathy GERD (gastroesophageal reflux disease) Gastric ulcer History of substance abuse Bipolar disorder Moderate recurrent major depression HCV (hepatitis C virus) Acid reflux Right knee pain Transaminitis Left knee pain Pure hypercholesterolemia Essential hypertension Diabetes mellitus Surgical History H/O colonoscopy Hx of esophagogastroduodenoscopy (08/2023) History of abdominal paracentesis (06/2023) Family History Father CVD (cardiovascular disease) Diabetes Thyroid disease Maternal Grandmother Diabetes Brother Respiratory failure Asthma Sister No problems noted. Daughter No problems noted. Family/Other Mental health disorder Mother Mental health disorder Essential hypertension Social History Household Members: Other Household Members Other:: step daughter Housing: Apartment Are you a primary pediatric critical care nurse to a significant other at home: No Do you presently have visiting nurse or other home services: No Alcohol intake: never Patient Tobacco Use Status: Current everyday Tobacco user Tobacco use type: Cigarette Cigarettes Per Day: 3 Years Smoked: 30 e-Cigarette/Vaping Use: Never Used Second Hand Smoke Exposure: No Substance Use Type: Former Substance User service: No Current occupational status: unemployed Current occupation: Right Handed Cognitive needs: Yes Hearing needs: No Vision needs: No Questionnaire PHQ-9 Over the last 2 weeks, how often have you been bothered by any of the following problems? 1. Little interest or pleasure in doing things: not at all 2. Feeling down, depressed, or hopeless: not at all 3. Trouble falling or staying asleep, or sleeping too much: not at all 4. Feeling tired or having little energy: not at all 5. Poor appetite or overeating: not at all 6. Feeling bad about yourself - or that you are a failure or have let yourself or your family down: not at all 7. Trouble concentrating on things, such as reading the newspaper or watching television: not at all 8. Moving or speaking so slowly that other people could have noticed. Or the opposite - being so fidgety or restless that you have been moving around a lot more than usual: not at all 9. Thoughts that you would be better off or of hurting yourself in some way: not at all Total score: 0 Depression Screening Interpretation: Negative Depression Screening Done: Yes 05530 - PHQ-9 Billing: Yes Source: Developed by Drs. Yaron Pinto, Carmen Black, Cameron Mc and colleagues, with an educational elizabeth from [employer]. Thrive Questionnaire Date Thrive assessed: 02/09/25 I am a: Patient What is your living situation today?: I have a steady place to live Within the past 12 months, did the food you bought not last and you didn't have the money to get more?: Often true Within the past 12 months, did you worry whether your food would run out before you got money to buy more?: Sometimes True Do you have trouble paying for medicines?: No Do you have trouble getting transportation to medical appointments?: No Do you have trouble paying your heating and electricity bill?: Yes Do you have trouble taking care of your child, family member or friend?: No Do you have trouble with day-to-day activities such as bathing, preparing meals, shopping, managing finances, etc.?: Yes Are you currently unemployed and looking for a job?: Yes Are you interested in more education?: No Please select the resources that you would like help with: Housing/Group Home, Food and Utilities Currently or been in a relationship where the following occur: I choose not to answer THRIVE Score: 3 AUDIT C Alcohol Use Questionnaire (AUDIT-C) 1. How often do you have a drink containing alcohol?: Never Total Score: 0 Score Reviewed/Action Taken: No JOSEPH-7 AMB Questionnaire JOSEPH-7 Date JOSEPH - 7 assessed: 02/09/25 Feeling nervous, anxious, or on edge: 1 = Several days Not being able to stop or control worryin = Not at all Worrying too much about different things: 1 = Several days Trouble relaxin = Several days Being so restless that it is hard to sit still: 0 = Not at all Becoming easily annoyed or irritable: 1 = Several days Feeling afraid as if something awful might happen: 0 = Not at all Total JOSEPH-7 score (0-4 normal; 5-9 mild; 10-14 moderate; 15-21 severe): 4 Source: Developed by Drs. Yaron Pinto, Carmen Black, Cameron Mc and colleagues, with an educational elizabeth from [employer]. JOSEPH-7 Assessment Billing JOSEPH-7 Assessment Tool: JOSEPH-7 Assessment 50929 Review of Systems Const All systems reviewed & are unremarkable except as noted in HPI and below Card Denies chest pain at rest, Denies chest pain with activity, Denies edema, Denies irregular heart rhythm, Denies claudication, Denies dyspnea, Denies dyspnea on exertion, Denies orthopnea, Denies paroxysmal nocturnal dyspnea and Denies slow heart rate Resp Denies cough, Denies dyspnea and Denies dyspnea on exertion Physical exam (Primary Care) Vital Signs: Last Vital Signs Pulse 89 02/09/25 09:35 Resp 18 02/09/25 09:35 BP 150/80 H 02/09/25 09:35 Pulse Ox 99 02/09/25 09:35 Oxygen Delivery Method Room Air 02/09/25 09:35 BMI result Body Mass Index 35.3 Tobacco/Smoking Status: Tobacco use Status Tobacco use date assessed 02/09/25 02/09/25 09:40 Patient Tobacco Use Status Current everyday Tobacco 02/09/25 09:40 Tobacco use type Cigarette 02/09/25 09:40 e-Cigarette/Vaping Use Never Used 02/09/25 09:40 PHQ-9: PHQ-9 Score PHQ-9: Total score 0 02/09/25 09:56 Depression Screening Interpretation: Negative Thrive Assessment: Date of Thrive Assessment Date Thrive assessed 02/09/25 02/09/25 09:40 Currently or been in a relationship where the following occur: I choose not to answer Resp Effort & Inspection: normal respiratory effort Auscultation: clear to auscultation bilaterally Cardio Jugular venous distension: no JVD Rate: regular rate Rhythm: regular rhythm Heart sounds: S1 normal heart sound present and S2 normal heart sound present Extrem General: Yes full ROM Results AMB Hemoglobin A1c AMB Hemoglobin A1c 11.6 % Last Edit by ENIO Pacheco on 02/09/25 09:56 Results Reviewed Results Reviewed: Laboratory Last Values Hgb A1c (Clinic) 11.6 % (4.0-6.0) H 02/09/25 09:43 Coding Level of Care Code Est Pt Level 4 (06497) Complex EM visit Add On G2211 Diagnoses Portal vein thrombosis I81 Bipolar affective disorder in remission F31.70 Active/Remission status: in remission of unspecified degree History of substance abuse F19.11 Opioid dependence on agonist therapy F11.20 Type 2 diabetes mellitus with hyperglycemia, with long-term current use of insulin E11.65; Z79.4 Diabetes mellitus nursing home insulin use: with ad terminal makeup operator use Portal hypertension K76.6 Normocytic anemia D64.9 Additional Codes JOSEPH-7 Assessment Billing - JOSEPH-7 Assessment Tool: JOSEPH-7 Assessment 02909 ([id number]) PHQ-9 - 44463 - PHQ-9 Billing: Yes ([id number]) Time Spent (min) 24 Assessment & Plan Assessment & Plan (1) Portal vein thrombosis: Code(s): I81 - Portal vein thrombosis Category: Medical (2) Bipolar disorder: Code(s): F31.9 - Bipolar disorder, unspecified Category: Medical Qualifiers: Active/Remission status: in remission of unspecified degree Qualified Code(s): F31.70 - Bipolar disorder, currently in remission, most recent episode unspecified (3) History of substance abuse: Code(s): F19.11 - Other psychoactive substance abuse, in remission Category: Medical (4) Opioid dependence on agonist therapy: Code(s): F11.20 - Opioid dependence, uncomplicated Category: Medical (5) Type 2 diabetes mellitus with hyperglycemia: Code(s): E11.65 - Type 2 diabetes mellitus with hyperglycemia Category: Medical Qualifiers: Diabetes mellitus nursing home insulin use: with ad terminal makeup operator use Qualified Code(s): E11.65 - Type 2 diabetes mellitus with hyperglycemia; Z79.4 - termite exterminator helper (current) use of insulin (6) Portal hypertension: Code(s): K76.6 - Portal hypertension Category: Medical (7) Normocytic anemia: Code(s): D64.9 - Anemia, unspecified Category: Medical Plan The management plan for diabetes mellitus type 2 includes the addition of a GLP- 1 receptor agonist to improve glycemic control, given the elevated hemoglobin A1c of 11.6. For portal hypertension secondary to cirrhosis, the patient will continue follow-up with gastroenterology, and carvedilol dosage will be increased to 6.5 mg twice daily as recommended. Additionally, Carafate will be administered three times a day for two weeks to manage gastropathy. For portal vein thrombosis, the patient will start on Eliquis twice daily, with instructions to discontinue if bleeding occurs. The patient is aware of the need to monitor for signs of bleeding and will continue to follow up with gastroenterology and endocrinology for ongoing management of cirrhosis and diabetes, respectively. Orders: Orders Complete Blood Count Auto Diff 4 Months D64.9 - Anemia, unspecified IRON PROFILE 4 Months D64.9 - Anemia, unspecified Vitamin B12 and Folate 4 Months E53.8 - Deficiency of other specified B group vitamins Comprehensive [place]. Panel Fast 4 Months E11.65 - Type 2 diabetes mellitus with hyperglycemia, Z79.4 - termite exterminator helper (current) use of insulin AMB Hemoglobin A1c Today Z13.9 - Encounter for screening, unspecified Lipid Panel 4 Months E78.5 - Hyperlipidemia, unspecified Microalbumin, Random (w Creat) 4 Months R80.9 - Proteinuria, unspecified Vitamin D 25-OH Total 4 Months E55.9 - Vitamin D deficiency, unspecified Glutamic acid decarboxylase Ab 4 Months E11.9 - Type 2 diabetes mellitus without complications Insulin Auto Antibody 4 Months E11.9 - Type 2 diabetes mellitus without complications Medications: New apixaban (Eliquis) 5 mg PO BID 180 tabs 1RF 90 days I81 - Portal vein thrombosis semaglutide (Ozempic) for 4 weeks 0.25 mg (0.368 mL) subcut QWEEK 1.472 mL 0RF 4 weeks E11.65 - Type 2 diabetes mellitus with hyperglycemia, Z79.4 - termite exterminator helper (current) use of insulin
[2025-02-09 09:35] VITALS: BP 150/80; PULSE 89; RESP 18; O2SAT 99; BMI 35.3
== END 2025-02-09 10:00 | disposition home or self-care (01) ==
LOC: HO.HMCH 09:33
PROVIDERS: PCP Internal Medicine; Visit Provider Internal Medicine
DX: E11.65 Type 2 diabetes mellitus with hyperglycemia (principal); F19.11 Other psychoactive substance abuse, in remission; F11.20 Opioid dependence, uncomplicated; Z79.4 Long term (current) use of insulin; K76.6 Portal hypertension; I81 Portal vein thrombosis; F31.70 Bipolar disorder, currently in remission, most recent episode unspecified; D64.9 Anemia, unspecified

== ENCOUNTER → 2025-02-09 09:33 | Outpatient (BNVA) | payer OTHER, SELFPAY | PROVIDERS: PCP Internal Medicine; Visit Provider Internal Medicine | DX: E11.65 Type 2 diabetes mellitus with hyperglycemia (principal); E78.5 Hyperlipidemia, unspecified; R80.9 Proteinuria, unspecified; I10 Essential (primary) hypertension; K74.60 Unspecified cirrhosis of liver; I81 Portal vein thrombosis; F31.70 Bipolar disorder, currently in remission, most recent episode unspecified; F19.11 Other psychoactive substance abuse, in remission; F11.20 Opioid dependence, uncomplicated; K76.6 Portal hypertension; D64.9 Anemia, unspecified; Z79.4 Long term (current) use of insulin; Z86.19 Personal history of other infectious and parasitic diseases; E55.9 Vitamin D deficiency, unspecified; E53.8 Deficiency of other specified B group vitamins | CPT/HCPCS: 83036; 96127; 99212 ==

== ENCOUNTER 2025-02-23 12:49 | Outpatient (AMB) | payer OTHER, SELFPAY ==
--- NOTE | 2025-02-23 13:02 | A.OFFVIS_ITS ---
Vital Signs 02/23/25 13:05 Height 5 ft 6 in Weight 217 lb 13.067 oz BMI 35.2 BP 132/74 Blood Pressure Location Rt brachial Position Sitting Pulse 95 Pulse Source Pulse Oximeter Pulse Oximetry (%) 98 Oxygen Delivery Method Room Air Intake Visit Reasons: Type II diabetes Intake Note: Patient present today to follow up on Type 2 Diabetes Mellitus. Last Diabetic Eye exam: 11/02/2024 [facility] Last Podiatry Visit: Does not see a Compensation Consultant Random Glucose: 428mg/dl 1:08 pm HgA1C: 11.6% 02/09/2025 Lock Corner Machine Operator Required: Yes Lock Corner Machine Operator Language: Senior Hr Manager Services: Lock Corner Machine Operator Offered & Declined Lock Corner Machine Operator Name: self Accompanied by: Self / Same As Patient Allergies No Known Allergies Allergy (Verified 02/23/25 13:05) HPI Comments Details: This is a 54-year-old male with a past medical history of cirrhosis, hepatitis- C, opioid dependence, anemia, bipolar disorder, hyperlipidemia, hypertension and type 2 diabetes presenting for diabetic management. 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 He was hospitalized recently due to portal vein thrombosis and underwent colonoscopy which revealed tubular adenoma and hyperplastic polyp. CT of the abdomen showed ascites and upper endoscopy revealed esophageal varices and internal hemorrhoids. He has since been started on Eliquis. He currently takes Lantus 55 units twice daily , metformin extended release 500 mg twice a day and Humalog. Patient started Ozempic 0.25 mg yesterday. This is being prescribed by his primary care provider. He denies side effects. He does not have a glucometer today. His POC is 428. Ate ice cream prior to the appointment and did not administer any short-acting insulin. He denies symptoms of hyperglycemia. He has present ed multiple times with a blood sugar greater than 400. Recent testing including JOSEPH, islet cell antibody and C-peptide are negative/normal. At his last appointment he told me he was using Humalog 20 units before meals. Today he says he is using the following scale: Blood sugar under 150 0 units Blood sugar 150-199 mg/dL take 12 units Blood sugar 200-249 mg/dL take 14 units Blood sugar 250-299 mg/dL take 20 units Blood sugar 300-349 mg/dL take 28 units Blood sugar 350-399 mg/dL take 28 units Blood sugar >/=400 mg /dL take 30 units Hemoglobin A1c 11.6% 02/09/2025. Previous medications: Toujeo caused headaches and was discontinued. He has met with the staff development educator. He also saw the dietitian. Compliance issues: Patient says his psychiatric issues, stress about his dog who is older and the previous of his impact his ability to manage his diabetes and medication administration. Hypoglycemia symptoms: Denies interval episodes. Hyperglycemia symptoms: Patient says he gets no symptoms unless BG 500+ and then he feels fatigued. ROS: Constitutional: No unexplained weight loss, fever, chills , fatigue or night sweats. Eyes: No vision changes, blurry vision, double vision Respiratory: No shortness of breath Cardiovascular: No chest pain or palpitations. No pedal edema. Neurologic: No headache, dizziness, syncope, unilateral weakness, ataxia, numbness or tingling in the extremities. Skin: No open wounds. Endocrine: No cold or heat intolerance. No polyuria or polydipsia. Physical exam: Constitutional: Alert, in no distress. Head: Normocephalic. Eyes: Pupils are equal, round and reactive to light. Extraocular muscles intact. Neck: Supple, Full range of motion. No lymphadenopathy. No palpable thyroid masses. Respiratory: Clear to auscultation. Cardiovascular: S1 S2 regular. No murmurs. Skin: Warm, dry Extremities: Warm and well perfused, no edema [facility] Medical History (Updated 02/09/25 @ 10:12 by Kierra Flanagan MD) Cirrhosis Normocytic anemia Portal vein thrombosis Bilateral kidney stones Abdominal ascites Anemia Type 2 diabetes mellitus with hyperglycemia Portal hypertensive gastropathy GERD (gastroesophageal reflux disease) Gastric ulcer History of substance abuse Bipolar disorder Moderate recurrent major depression HCV (hepatitis C virus) Acid reflux Right knee pain Transaminitis Left knee pain Pure hypercholesterolemia Essential hypertension Diabetes mellitus Surgical History H/O colonoscopy Hx of esophagogastroduodenoscopy (08/2023) History of abdominal paracentesis (06/2023) Family History Father CVD (cardiovascular disease) Diabetes Thyroid disease Maternal Grandmother Diabetes Brother Respiratory failure Asthma Sister No problems noted. Daughter No problems noted. Family/Other Mental health disorder Mother Mental health disorder Essential hypertension Social History Household Members: Other Household Members Other:: step daughter Housing: Apartment Are you a primary healthcare network consultant to a significant other at home: No Do you presently have visiting nurse or other home services: No Alcohol intake: never Patient Tobacco Use Status: Current everyday Tobacco user Tobacco use type: Cigarette Cigarettes Per Day: 10 Years Smoked: 30 e-Cigarette/Vaping Use: Never Used Second Hand Smoke Exposure: No Substance Use Type: Former Substance User service: No Current occupational status: unemployed Current occupation: Right Handed Cognitive needs: Yes Hearing needs: No Vision needs: No Physical Exam Vital Signs: Last Vital Signs Pulse 95 02/23/25 13:05 BP 132/74 02/23/25 13:05 Pulse Ox 98 02/23/25 13:05 Oxygen Delivery Method Room Air 02/23/25 13:05 BMI result Body Mass Index 35.2 Results Reviewed Results Reviewed: Laboratory Last Values Glucose (Clinic) 428 mg/dL (60-115) H* 02/23/25 13:08 Laboratory Tests 06/08/24 06/08/24 11:52 11:53 Creatinine 1.31 Estimated GFR 57 Triglycerides 99 Cholesterol 181 LDL Cholesterol, Calc 116 H HDL Cholesterol 46 Vitamin B12 781 Urine Creatinine 29.94 Urine Microalbumin < 5.0 Microalb/Creat Ratio TNP Laboratory Tests 12/04/24 12/09/24 12/09/24 08:21 09:05 09:09 Creatinine 0.74 Estimated GFR > 60 Hgb A1c (Clinic) 12.3 H AST 44 H ALT 54 H Triglycerides 116 Cholesterol 194 LDL Cholesterol, Calc 125 H HDL Cholesterol 46 Vitamin B12 798 Urine Creatinine 281.52 Urine Microalbumin 38.0 Microalb/Creat Ratio 13.4 Laboratory Tests 02/02/25 10:07 Islet Cell Ab Screen NEGATIVE Islet Cell Ab Titer TNP JOSEPH Antibody <5 Assessment & Plan Assessment & Plan (1) Type 2 diabetes mellitus with hyperglycemia: Code(s): E11.65 - Type 2 diabetes mellitus with hyperglycemia Category: Medical Qualifiers: Diabetes mellitus care home insulin use: with care home use Qualified Code(s): E11.65 - Type 2 diabetes mellitus with hyperglycemia; Z79.4 - buttermaker helper (current) use of insulin Plan In summary this is a 54-year-old male with uncontrolled type 2 diabetes and cirrhosis of the liver. Discussed pathophysiology of Type II Diabetes Mellitus with the patient in detail.? I explained the medical terminologist risks and complications associated with uncontrolled diabetes including nephropathy, neuropathy, peripheral vascular disease, retinopathy, increased risk of heart disease and stroke.? Diabetic diet reviewed. He met with a dietitian in February of 2024. He is trying to make changes to his diet. He presents with severe hyperglycemia today. Declined testing urine for ketones. Declined insulin against medical advice. I explained the risk of leaving without treatment including end-organ damage, DKA, coma and . He to continued declined treatment or ER evaluation. Patient says he has been compliant with his medications aside from today, but this may not be accurate. When he received short-acting insulin in the office previously blood sugar improved drastically. This is not reflected in his A1c. I reviewed the importance of bringing his meter with him to the appointments. We discussed risks of DKA with high blood sugar. He has ketone urine strips and has been given written instructions on when to test and signs and symptoms of DKA. Reviewed proper treatment of hypoglycemia and hyperglycemia. He has written instructions for hypoglycemia and a prescription for glucose tablets. Increase Lantus to 58 units twice daily Continue metformin 500 mg twice daily He is taking Ozempic prescribed by his primary care provider. Patient previously saw Lesli Irwin who consulted Dr. Burdick regarding Glp1 in this patient. It was not recommended due to his co-morbidities, but the patient wants to continue taking the medication. Sliding scale for Humalog Blood sugar under 150 0 units Blood sugar 150-199 mg/dL take 12 units Blood sugar 200-249 mg/dL take 14 units Blood sugar 250-299 mg/dL take 20 units Blood sugar 300-349 mg/dL take 28 units Blood sugar 350-399 mg/dL take 28 units Blood sugar >/=400 mg /dL take 30 units Follow up with endocrinology MD in 2-3 weeks for re-evaluation given persistently elevated hemoglobin A1c. Medications: Refilled blood-glucose sensor (FreeStyle Nyla 3 Plus Sensor device) Apply 1 new sensor every 15 days as directed to monitor blood glucose continuously. 2 ea 11RF E11.65 - Type 2 diabetes mellitus with hyperglycemia, Z79.4 - buttermaker helper (current) use of insulin Patient Instructions: Lantus 58 units twice daily Continue metformin 500 mg twice daily You are taking Ozempic prescribed by your primary care provider. Sliding scale for Humalog Blood sugar under 150- 0 units Blood sugar 150-199 mg/dL take 12 units Blood sugar 200-249 mg/dL take 14 units Blood sugar 250-299 mg/dL take 20 units Blood sugar 300-349 mg/dL take 28 units Blood sugar 350-399 mg/dL take 28 units Blood sugar >/=400 mg /dL take 30 units Coding Level of Care Code Est Pt Level 4 (60587) Complex EM visit Add On G2211 Diagnoses Type 2 diabetes mellitus with hyperglycemia, with long-term current use of insulin E11.65; Z79.4 Diabetes mellitus medical terminologist insulin use: with medical terminologist use
[2025-02-23 13:05] VITALS: BP 132/74; PULSE 95; O2SAT 98; BMI 35.2
[2025-02-23 13:27] LABS: Glucose, Whole Blood 428 mg/dL (60-115)
== END 2025-02-23 13:43 | disposition home or self-care (01) ==
LOC: HO.ENCR 12:50
PROVIDERS: PCP Internal Medicine; Visit Provider Physician Assistant Medical
DX: E11.65 Type 2 diabetes mellitus with hyperglycemia (principal); Z79.4 Long term (current) use of insulin

== ENCOUNTER → 2025-02-23 12:49 | Outpatient (BNVA) | payer OTHER, SELFPAY | PROVIDERS: PCP Internal Medicine; Visit Provider Physician Assistant Medical | DX: E11.65 Type 2 diabetes mellitus with hyperglycemia (principal); Z79.4 Long term (current) use of insulin | CPT/HCPCS: 82947; 99212 ==

== ENCOUNTER 2025-03-18 08:23 | Outpatient (AMB) | payer OTHER, SELFPAY ==
[2025-03-18 08:29] VITALS: BP 152/80; PULSE 79; O2SAT 97; BMI 35.2
--- NOTE | 2025-03-18 08:29 | A.OFFVIS_ITS ---
Vital Signs 03/18/25 08:29 Height 5 ft 6 in Weight 218 lb 4.122 oz BMI 35.2 BP 152/80 H Blood Pressure Location Rt brachial Position Sitting Pulse 79 Pulse Source Pulse Oximeter Pulse Oximetry (%) 97 Oxygen Delivery Method Room Air Intake Visit Reasons: Type II DM with MD due to A1C 11.6% Intake Note: Patient present today to follow up on Type 2 Diabetes Mellitus. Last Diabetic Eye exam: 11/02/2024, [facility]. Last Podiatry Visit: Does not see a Oiling Machine Operator Most Recent HgA1C: 11.6% 02/09/2025 Random Glucose: 181 mg/dL Network Architect Manager Required: Yes Network Architect Manager Language: Embedded Software Architect Services: Network Architect Manager Offered & Declined (DR. Barakat Speak Fluent Portuguese) Network Architect Manager Name: self Accompanied by: Self / Same As Patient Allergies No Known Allergies Allergy (Verified 03/18/25 08:31) HPI Comments Details: This is a 54-year-old male with a past medical history of cirrhosis, hepatitis- C, opioid dependence, anemia, bipolar disorder, hyperlipidemia, hypertension and type 2 diabetes presenting for diabetic management. 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 He currently takes Lantus 55 units twice daily , metformin extended release 500 mg twice a day and Humalog sliding scale. Patient started Ozempic 0.25 mg 3 weeks ago. He denies side effects. He does not have a glucometer today. The patient reports significant hypoglycemia episodes with higher doses of Tresiba (up to 120 units), requiring assistance and nearly necessitating ambulance intervention. The patient notes decreased appetite and early satiety since starting Ozempic, with resultant reduced meal size and frequency. He uses a Fast Drinksstyle Nyla 3 CGM but reports frequent sensor failures (lasting only 6?8 days, sometimes dislodged during sleep or daily activities) Previous testing including JOSEPH, islet cell antibody and C-peptide are negative/normal. He reports that he has a scale at home that he uses, previously documented as below: Blood sugar under 150 0 units Blood sugar 150-199 mg/dL take 12 units Blood sugar 200-249 mg/dL take 14 units Blood sugar 250-299 mg/dL take 20 units Blood sugar 300-349 mg/dL take 28 units Blood sugar 350-399 mg/dL take 28 units Blood sugar >/=400 mg /dL take 30 units Hemoglobin A1c 11.6% 02/09/2025. Previous medications: Toujeo caused headaches and was discontinued. He was on Tresiba before, but it was discontinued especially developed hypoglycemia. Compliance issues: Patient says his psychiatric issues, stress about his dog who is older and the previous of his impact his ability to manage his diabetes and medication administration. Hypoglycemia symptoms: Denies interval episodes. Hyperglycemia symptoms: Patient says he gets no symptoms unless BG 500+ and then he feels fatigued. Physical exam: General: Well appearing. NAD. Neck/Thyroid: Thyroid not palpable, no nodules. CV: RRR, no murmur. No edema. Pulses 2+ bilaterally Resp:Lungs clear to auscultation bilaterally Abdomen: Soft, nontender. nondistended Extremities/Neuro: No weakness or tremor of outstretched hands Diabetic Foot Exam: Sensation to Monofilament exam preserved bilaterally [facility] History (Updated 02/09/25 @ 10:12 by Kierra Flanagan MD) Cirrhosis Normocytic anemia Portal vein thrombosis Bilateral kidney stones Abdominal ascites Anemia Type 2 diabetes mellitus with hyperglycemia Portal hypertensive gastropathy GERD (gastroesophageal reflux disease) Gastric ulcer History of substance abuse Bipolar disorder Moderate recurrent major depression HCV (hepatitis C virus) Acid reflux Right knee pain Transaminitis Left knee pain Pure hypercholesterolemia Essential hypertension Diabetes mellitus Surgical History H/O colonoscopy Hx of esophagogastroduodenoscopy (08/2023) History of abdominal paracentesis (06/2023) Family History Father CVD (cardiovascular disease) Diabetes Thyroid disease Maternal Grandmother Diabetes Brother Respiratory failure Asthma Sister No problems noted. Daughter No problems noted. Family/Other Mental health disorder Mother Mental health disorder Essential hypertension Social History Household Members: Other Household Members Other:: step daughter Housing: Apartment Are you a primary pharmacist critical care to a significant other at home: No Do you presently have visiting nurse or other home services: No Alcohol intake: never Patient Tobacco Use Status: Current everyday Tobacco user Tobacco use type: Cigarette Cigarettes Per Day: 10 Years Smoked: 30 e-Cigarette/Vaping Use: Never Used Second Hand Smoke Exposure: No Substance Use Type: Former Substance User service: No Current occupational status: unemployed Current occupation: Right Handed Cognitive needs: Yes Hearing needs: No Vision needs: No Physical Exam Vital Signs: Last Vital Signs Pulse 79 03/18/25 08:29 BP 152/80 H 03/18/25 08:29 Pulse Ox 97 03/18/25 08:29 Oxygen Delivery Method Room Air 03/18/25 08:29 BMI result Body Mass Index 35.2 Results Reviewed Results Reviewed: Laboratory Last Values Glucose (Clinic) 181 mg/dL (60-115) H 03/18/25 08:34 Laboratory Tests 06/08/24 06/08/24 11:52 11:53 Creatinine 1.31 Estimated GFR 57 Triglycerides 99 Cholesterol 181 LDL Cholesterol, Calc 116 H HDL Cholesterol 46 Vitamin B12 781 Urine Creatinine 29.94 Urine Microalbumin < 5.0 Microalb/Creat Ratio TNP Laboratory Tests 12/04/24 12/09/24 12/09/24 08:21 09:05 09:09 Creatinine 0.74 Estimated GFR > 60 Hgb A1c (Clinic) 12.3 H AST 44 H ALT 54 H Triglycerides 116 Cholesterol 194 LDL Cholesterol, Calc 125 H HDL Cholesterol 46 Vitamin B12 798 Urine Creatinine 281.52 Urine Microalbumin 38.0 Microalb/Creat Ratio 13.4 Laboratory Tests 02/02/25 10:07 Islet Cell Ab Screen NEGATIVE Islet Cell Ab Titer TNP JOSEPH Antibody <5 Assessment & Plan Assessment & Plan (1) Type 2 diabetes mellitus with hyperglycemia: Code(s): E11.65 - Type 2 diabetes mellitus with hyperglycemia Category: Medical Qualifiers: Diabetes mellitus shelter insulin use: with shelter use Qualified Code(s): E11.65 - Type 2 diabetes mellitus with hyperglycemia; Z79.4 - longterm (current) use of insulin Plan In summary this is a 54-year-old male with uncontrolled type 2 diabetes and cirrhosis of the liver. Discussed pathophysiology of Type II Diabetes Mellitus with the patient in detail.? 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 Diabetic diet reviewed. He met with a dietitian in February of 2024. He is trying to make changes to his diet. Continue Tresiba at reduced dose (70 units daily); monitor for hypoglycemia and titrate as needed. Continue metformin. Use Sliding scale as below Increase Ozempic to 0.5 mg weekly as tolerated; anticipate further appetite suppression and possible need for additional insulin dose reduction. Emphasize importance of small, frequent, balanced meals to prevent hypoglycemia, especially with reduced appetite. Provide hands-on education for proper CGM (Nyla 3) placement and troubleshooting; reinforce fingerstick monitoring when CGM is not reliable. Review and reinforce insulin injection site rotation, encourage use of abdomen if possible for better absorption. Bring glucose logs and sensor data to next visit for detailed review and further insulin adjustment. Arrange shirt line operator or nursing support for additional training as needed. ISS Insulin Dose (units) ? Take 10?15 minutes prior to the meal Blood Sugar Level (mg/dl) Small Meal?(low carb <30g like salad, eggs with meat) Normal Meal?(30?60g like sandwich, chips, meat, small starch portion) Large Meal?(>60g like pizza, lasagna, Gambian food, meal + dessert) <100 0 1 2 101?150 1 2 4 151?200 2 4 6 201?250 4 6 8 251?300 6 8 10 301?350 8 10 12 351?400 10 12 14 >400 12 14 16 Medications: Refilled pen needle, diabetic (1st Tier Unifine Pentips) As directed qid 200 ea 6RF E11.65 - Type 2 diabetes mellitus with hyperglycemia, Z79.4 - long term care social worker (current) use of insulin Patient Instructions: Deje de usar Lantus Monitoree al azucar 4-6 veces al trey Use las piernas para la injeccion de insulina Reinicie Tresiba 70 units daily Aumente a Ozempic to 0.5 mg weekly Continue insulin sliding scale as below: Insulin Dose (units) ? Take 10?15 minutes prior to the meal Blood Sugar Level (mg/dl) Small Meal?(low carb <30g like salad, eggs with meat) Normal Meal?(30?60g like sandwich, chips, meat, small starch portion) Large Meal?(>60g like pizza, lasagna, Gambian food, meal + dessert) <100 0 1 2 101?150 1 2 4 151?200 2 4 6 201?250 4 6 8 251?300 6 8 10 301?350 8 10 12 351?400 10 12 14 >400 12 14 16 Coding Level of Care Code Est Pt Level 4 (75429) Diagnoses Type 2 diabetes mellitus with hyperglycemia, with long-term current use of insulin E11.65; Z79.4 Diabetes mellitus shelter insulin use: with shelter use Time Spent (min) 50 Comment Time spent on review of previous records, history, exam/plan and patient education.
[2025-03-18 08:38] LABS: Glucose, Whole Blood 181 mg/dL (60-115)
== END 2025-03-18 09:25 | disposition home or self-care (01) ==
LOC: HO.ENCR 08:24
PROVIDERS: PCP Internal Medicine; Visit Provider Student in an Organized Health Care Education/Training Program
DX: E11.65 Type 2 diabetes mellitus with hyperglycemia (principal); Z79.4 Long term (current) use of insulin
CPT/HCPCS: 99214

== ENCOUNTER → 2025-03-18 08:23 | Outpatient (BNVA) | payer OTHER, SELFPAY | PROVIDERS: PCP Internal Medicine; Visit Provider Student in an Organized Health Care Education/Training Program | DX: E11.65 Type 2 diabetes mellitus with hyperglycemia (principal); Z79.4 Long term (current) use of insulin | CPT/HCPCS: 82947; 99212 ==

== ENCOUNTER 2025-04-22 07:44 | Outpatient (AMB) | payer OTHER, SELFPAY ==
--- NOTE | 2025-04-22 07:56 | MHC.OFFVIS ---
Vital Signs 04/22/25 07:57 Height 5 ft 6 in Weight 213 lb 13.574 oz BMI 34.5 BP 170/90 H Blood Pressure Location Rt brachial Position Sitting Pulse 94 Pulse Source Pulse Oximeter Pulse Oximetry (%) 99 Oxygen Delivery Method Room Air Intake Visit Reasons: T2DM Intake Note: Patient present today to follow up on Type 2 Diabetes Mellitus: Patient stated having difficulty getting his sensors from the pharmacy. Last Diabetic Eye exam: 11/02/2024, [facility]. Last Podiatry Visit: Does not see a Artistic Associate Most Recent HgA1C: 11.6% 02/09/2025 Random Glucose: 260 mg/dL Polisher Numeral Required: No Polisher Numeral Services: Polisher Numeral Offered & Declined (DR. Barakat Speak Fluent Kenyan) Polisher Numeral Name: self Accompanied by: Self / Same As Patient Allergies No Known Allergies Allergy (Verified 04/22/25 07:58) HPI Comments Details: This is a 54-year-old male with a past medical history of cirrhosis, hepatitis-C, opioid dependence, anemia, bipolar disorder, hyperlipidemia, hypertension and type 2 diabetes presenting for diabetic management. 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 He currently takes Lantus 55 units twice daily , metformin extended release 500 mg twice a day and Humalog sliding scale. Patient started Ozempic 0.25 mg 3 weeks ago. He denies side effects. He does not have a glucometer today. The patient reports significant hypoglycemia episodes with higher doses of Tresiba (up to 120 units), requiring assistance and nearly necessitating ambulance intervention. The patient notes decreased appetite and early satiety since starting Ozempic, with resultant reduced meal size and frequency. He uses a Freestyle Nyla 3 CGM but reports frequent sensor failures (lasting only 6?8 days, sometimes dislodged during sleep or daily activities) Previous testing including JOSEPH, islet cell antibody and C-peptide are negative/normal. Hemoglobin A1c 11.6% 02/09/2025. Previous medications: Toujeo caused headaches and was discontinued. He was on Tresiba before, but it was discontinued especially developed hypoglycemia. Compliance issues: Patient says his psychiatric issues, stress about his dog who is older and the previous of his impact his ability to manage his diabetes and medication administration. Hypoglycemia symptoms: Denies interval episodes. Hyperglycemia symptoms: Patient says he gets no symptoms unless BG 500+ and then he feels fatigued. Interval history: Patient reports that he has issues with the pharmacy scripts that are not being filled He has not being able to get any of his medications Continues to use Ozempic 0.25 mg as it was not filled as 0.5mg Using Lantus 40 units am and 30units pm Using sliding scale No lows Physical exam: General: Well appearing. NAD. Neck/Thyroid: Thyroid not palpable, no nodules. CV: RRR, no murmur. No edema. Resp:Lungs clear to auscultation bilaterally Abdomen: Soft, nontender. nondistended Extremities/Neuro: No weakness or tremor of outstretched hands [facility] Medical History Cirrhosis History of abdominal paracentesis (06/2023) Normocytic anemia Portal vein thrombosis Bilateral kidney stones Abdominal ascites Anemia Type 2 diabetes mellitus with hyperglycemia Portal hypertensive gastropathy GERD (gastroesophageal reflux disease) Gastric ulcer History of substance abuse Bipolar disorder Moderate recurrent major depression HCV (hepatitis C virus) Acid reflux Right knee pain Transaminitis Left knee pain Pure hypercholesterolemia Essential hypertension Diabetes mellitus Surgical History H/O colonoscopy Hx of esophagogastroduodenoscopy (08/2023) Family History Father CVD (cardiovascular disease) Diabetes Thyroid disease Maternal Grandmother Diabetes Brother Respiratory failure Asthma Sister No problems noted. Daughter No problems noted. Family/Other Mental health disorder Mother Mental health disorder Essential hypertension Social History Household Members: Other Household Members Other:: step daughter Housing: Apartment Are you a primary child care center administrator to a significant other at home: No Do you presently have visiting nurse or other home services: No Alcohol intake: never Patient Tobacco Use Status: Current everyday Tobacco user Tobacco use type: Cigarette Cigarettes Per Day: 10 Years Smoked: 30 e-Cigarette/Vaping Use: Never Used Second Hand Smoke Exposure: No Substance Use Type: Former Substance User service: No Current occupational status: unemployed Current occupation: Right Handed Cognitive needs: Yes Hearing needs: No Vision needs: No Physical Exam Vital Signs: Last Vital Signs Pulse 94 04/22/25 07:57 BP 170/90 H 04/22/25 07:57 Pulse Ox 99 04/22/25 07:57 Oxygen Delivery Method Room Air 04/22/25 07:57 BMI result Body Mass Index 34.5 Results Reviewed Results Reviewed: Laboratory Tests 06/08/24 06/08/24 11:52 11:53 Creatinine 1.31 Estimated GFR 57 Triglycerides 99 Cholesterol 181 LDL Cholesterol, Calc 116 H HDL Cholesterol 46 Vitamin B12 781 Urine Creatinine 29.94 Urine Microalbumin < 5.0 Microalb/Creat Ratio TNP Laboratory Tests 12/04/24 12/09/24 12/09/24 08:21 09:05 09:09 Creatinine 0.74 Estimated GFR > 60 Hgb A1c (Clinic) 12.3 H AST 44 H ALT 54 H Triglycerides 116 Cholesterol 194 LDL Cholesterol, Calc 125 H HDL Cholesterol 46 Vitamin B12 798 Urine Creatinine 281.52 Urine Microalbumin 38.0 Microalb/Creat Ratio 13.4 Laboratory Tests 02/02/25 10:07 Islet Cell Ab Screen NEGATIVE Islet Cell Ab Titer TNP JOSEPH Antibody <5 Assessment & Plan Assessment & Plan (1) Type 2 diabetes mellitus with hyperglycemia: Code(s): E11.65 - Type 2 diabetes mellitus with hyperglycemia Category: Medical Qualifiers: Diabetes mellitus intermediate school 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 Discussed pathophysiology of Type II Diabetes Mellitus with the patient in detail.? I explained the correction risks and complications associated with uncontrolled diabetes including nephropathy, neuropathy, peripheral vascular disease, retinopathy, increased risk of heart disease and stroke.? Diabetic diet reviewed. He met with a dietitian in February of 2024. He is trying to make changes to his diet. Patient unfortunately has not being able to get his scripts filled so he was using the same doses as before, except Lantus which he has been using as 40 units am and 30 units PM. Plan No changes in regimen today Continue Tresiba at reduced dose 70 units daily; monitor for hypoglycemia and titrate as needed. Continue metformin 500mg BID Use Sliding scale as below Increase Ozempic to 0.5 mg weekly as tolerated Advised the patient to use CGM or glucometer to monitor his BG at least 4 times Will provide all scripts again to help the patient obtian the medications. Adviced the patient to call us if he is not received the medications Insulin Dose (units) ? Take 10?15 minutes prior to the meal Blood Sugar Level (mg/dl) Small Meal?(low carb <30g like salad, eggs with meat) Normal Meal?(30?60g like sandwich, chips, meat, small starch portion) Large Meal?(>60g like pizza, lasagna, Spanish food, meal + dessert) <100 0 1 2 101?150 1 2 4 151?200 2 4 6 201?250 4 6 8 251?300 6 8 10 301?350 8 10 12 351?400 10 12 14 >400 12 14 16 Plan 20 minutes spent reviewing previous records, labs, imaging, education and documenting in the chart Medications: New insulin lispro (Humalog KwikPen (U-100) Insulin) 12-30 units tid with meals subcutaneously 3 times a day; 15 mL 3RF Changed From semaglutide (Ozempic) for 4 weeks 0.25 mg (0.368 mL) subcut QWEEK 4 weeks 1.472 mL 0RF E11.65 - Type 2 diabetes mellitus with hyperglycemia, Z79.4 - terminal gauger supervisor (current) use of insulin To semaglutide (Ozempic) for 4 weeks 0.5 mg (0.736 mL) subcut QWEEK 3 mL 0RF 4 weeks E11.65 - Type 2 diabetes mellitus with hyperglycemia, Z79.4 - terminal gauger supervisor (current) use of insulin Refilled blood-glucose meter (OneTouch Verio Flex Meter) Use as directed to check blood glucose five times daily for type II diabetes. 1 ea 0RF acetone (urine) test (Ketone Care strips) As directed. 100 ea 3RF E11.65 - Type 2 diabetes mellitus with hyperglycemia, Z79.4 - terminal gauger supervisor (current) use of insulin blood-glucose,headliner installer,cont (FreeStyle Nyla 3 [place]) as directed 1 ea 0RF lancets (OneTouch Delica Plus Lancet) Use as directed to check blood glucose fives times daily. 200 ea 5RF pen needle, diabetic (1st Tier Unifine Pentips) As directed qid 200 ea 6RF E11.65 - Type 2 diabetes mellitus with hyperglycemia, Z79.4 - terminal gauger supervisor (current) use of insulin blood sugar diagnostic (OneTouch Verio test strips) Use as directed to check blood glucose five times daily. 200 ea 5RF blood-glucose sensor (FreeStyle Nyla 3 Plus Sensor device) Apply 1 new sensor every 15 days as directed to monitor blood glucose continuously. 2 ea 11RF E11.65 - Type 2 diabetes mellitus with hyperglycemia, Z79.4 - terminal gauger supervisor (current) use of insulin Coding Level of Care Code Est Pt Level 3 (93757) Diagnoses Type 2 diabetes mellitus with hyperglycemia, with long-term current use of insulin E11.65; Z79.4 Diabetes mellitus correction insulin use: with intermediate school teacher use
[2025-04-22 07:57] VITALS: BP 170/90; PULSE 94; O2SAT 99; BMI 34.5
[2025-04-22 08:07] LABS: Glucose, Whole Blood 260 mg/dL (60-115)
== END 2025-04-22 08:31 | disposition home or self-care (01) ==
LOC: HO.ENCR 07:45
PROVIDERS: PCP Internal Medicine; Visit Provider Student in an Organized Health Care Education/Training Program
DX: E11.65 Type 2 diabetes mellitus with hyperglycemia (principal); Z79.4 Long term (current) use of insulin
CPT/HCPCS: 99213

== ENCOUNTER → 2025-04-22 07:44 | Outpatient (BNVA) | payer OTHER, SELFPAY | PROVIDERS: PCP Internal Medicine; Visit Provider Student in an Organized Health Care Education/Training Program | DX: E11.65 Type 2 diabetes mellitus with hyperglycemia (principal); Z79.4 Long term (current) use of insulin | CPT/HCPCS: 82947; 99212 ==

== ENCOUNTER 2025-05-10 10:19 | Outpatient (AMB) | payer OTHER, SELFPAY ==
[2025-05-10 10:23] VITALS: BP 154/82; PULSE 91; BMI 34.9
--- NOTE | 2025-05-10 10:23 | MHC.OFFVIS ---
Vital Signs 05/10/25 10:23 Height 5 ft 6 in Weight 216 lb 0.848 oz BMI 34.9 BP 154/82 H Blood Pressure Location Lt brachial Position Sitting Pulse 91 Intake Visit Reasons: 4 mo f/u Intake Note: Vasile presents in the office as a 4 month follow up. CC: States that because of Diabetes to see if he can have appt earlier because his sugar was 500. He is upset because he cannot wait too long to eat due to his sugars. Brazer Crawler Torch Required: Yes Allergies No Known Allergies Allergy (Verified 05/10/25 10:26) HPI HPI 4 mo f/u: Details: 54-year-old male, with hx of HCV-treated, bipolar d/o, chronic knee pain, DM, HTN< and HLP who I am seeing for f/u for ascites and anemia due to cirrhosis RECAP: I had seen pt 09/2022 for melena, abdominal distention and abdominal pain denied history of alcohol abuse He had been taking ibuprofen q6 h for few years due to chronic knee pain, and is unsure if taking any PPI Patient had a diagnostic paracentesis which was negative for SBP, Admitted 08/17 with GI bleed and had EGD with banding Imaging: Abdomen pelvic CT 09/2022: cirrhosis with diffuse ascites, prominent collateral vessels, US 07/17-- neg for ascites, not needed paracentesis CT 10/2023-- cirrhosis, no liver masses CT imaging 11/15- cirrhosis, US 02/15-- cirrhosis, no mass lesions SCOPES: EGD -01/2019--erosive gastritis, duodenitis and esophagitis. EGD- 09/2022--varices--banded, gastric ulcer EGD, colo --healed ulcer, varices grade II-not re banded, EGD 08/17 -- large varices, banded EGD 08/31/23-- varices--banded EGD?colo : 02/15-- varix x1 banded, polyps INTERIM: he is doing well no n/v no abdominal pain no urine symptoms--foloowing urology for stones no alcohol use or drugs been taking carvedilol BID now EXAM: GENERAL: The patient is well developed and nontoxic. VITAL SIGNS:see workflow HEENT: Nonicteric sclerae, PERRLA, EOMI. Oropharynx clear. Moist mucous membranes. Conjunctivae appear well perfused. No thyroid mass. CHEST: Chest wall is nontender. HEART: Regular rate and rhythm without murmurs. LUNGS: Clear to auscultation bilaterally. ABDOMEN: Soft, positive bowel sounds, nontender, no organomegaly.no flank tenderness--no shifting dullness SKIN: No rash, no excessive bruising, petechiae, or purpura. NEUROLOGIC: Cranial nerves II-XII intact without motor/sensory deficit. psych--nml A/P; 1/ Cirrhosis, with ascites and variceal bleeding decompensated due to NSAID use now seems to be compensated with avoidance of nsaid and no ascites --MELD na--9 2/ Gastric ulcer--resolved--h pylori was negative in the past 3/ Variceal bleeding, s/p banding 4/ Ascites--resolved, but strangely still has varices PLAN: 1/ Ascites--resolved, avodi nsaid, lo salt diet, cont with aldactone , carvedilol 2/ HE--no evidence of overt disease 3/ Varices- bleeding, rept EGD as was banded recently ----to take half dose of lantus night before-- 4/ HCC screen---US in 4-6 months 5/ rept colo in 1 yr or so 6/ if ongoing varices then maybe TIPS 7/ Plts > 50-- check with urology target they need, can consider doptelet or plt infusion near the time of surgery [facility] Medical History Cirrhosis History of abdominal paracentesis (06/2023) Normocytic anemia Portal vein thrombosis Bilateral kidney stones Abdominal ascites Anemia Type 2 diabetes mellitus with hyperglycemia Portal hypertensive gastropathy GERD (gastroesophageal reflux disease) Gastric ulcer History of substance abuse Bipolar disorder Moderate recurrent major depression HCV (hepatitis C virus) Acid reflux Right knee pain Transaminitis Left knee pain Pure hypercholesterolemia Essential hypertension Diabetes mellitus Surgical History H/O colonoscopy Hx of esophagogastroduodenoscopy (08/2023) Family History Father CVD (cardiovascular disease) Diabetes Thyroid disease Maternal Grandmother Diabetes Brother Respiratory failure Asthma Sister No problems noted. Daughter No problems noted. Family/Other Mental health disorder Mother Mental health disorder Essential hypertension Social History Household Members: Other Household Members Other:: step daughter Housing: Apartment Are you a primary care management specialist to a significant other at home: No Do you presently have visiting nurse or other home services: No Alcohol intake: never Patient Tobacco Use Status: Current everyday Tobacco user Tobacco use type: Cigarette Cigarettes Per Day: 10 Years Smoked: 30 e-Cigarette/Vaping Use: Never Used Second Hand Smoke Exposure: No Substance Use Type: Former Substance User service: No Current occupational status: unemployed Current occupation: Right Handed Cognitive needs: Yes Hearing needs: No Vision needs: No Physical Exam Vital Signs: Last Vital Signs Pulse 91 05/10/25 10:23 BP 154/82 H 05/10/25 10:23 BMI result Body Mass Index 34.9 Assessment & Plan Assessment & Plan (1) Cirrhosis: Code(s): K74.60 - Unspecified cirrhosis of liver Category: Medical Qualifiers: Hepatic cirrhosis type: unspecified hepatic cirrhosis Ascites presence: with ascites Qualified Code(s): K74.60 - Unspecified cirrhosis of liver; R18.8 - Other ascites Plan: as above Coding Level of Care Code Est Pt Level 4 (68769) Diagnoses Cirrhosis of liver with ascites, unspecified hepatic cirrhosis type K74.60; R18.8 Hepatic cirrhosis type: unspecified hepatic cirrhosis Ascites presence: with ascites
== END 2025-05-10 10:47 | disposition home or self-care (01) ==
LOC: HO.HGI 10:20
PROVIDERS: PCP Internal Medicine; Visit Provider Internal Medicine Gastroenterology
DX: K74.60 Unspecified cirrhosis of liver (principal); R18.8 Other ascites
CPT/HCPCS: 99214

== ENCOUNTER → 2025-05-10 10:19 | Outpatient (BNVA) | payer OTHER, SELFPAY | PROVIDERS: PCP Internal Medicine; Visit Provider Internal Medicine Gastroenterology | DX: K74.60 Unspecified cirrhosis of liver (principal); R18.8 Other ascites | CPT/HCPCS: 99212 ==

== ENCOUNTER 2025-05-13 10:46 | Outpatient (REF) | payer OTHER, SELFPAY ==
--- NOTE | ~2025-05-13 | US_ITS ---
CLINICAL HISTORY: N20.0 - Calculus of kidney US renal with Color Doppler Comparison: US/MA/SR - US ABDOMEN COMPLETE - 01/25/25 09:[address]/SR - CT ABDOMEN PELVIS WO IV CON - 11/21/24 19:48 EDT Findings: Right kidney normal size and echotexture, 12.4 cm length. No hydronephrosis or mass. Normal color flow. 3 x 3 x 3 mm nonobstructing caliceal stone midpole. Left kidney normal size and echotexture, 12.8 cm length. No hydronephrosis or mass. Normal color flow. 5 x 3 x 5 mm nonobstructing calculus midpole Impression: 1. Bilateral nephrolithiasis. No evidence of obstructive uropathy. This document has been electronically signed by: Florentino Arvizu MD on 05/14/2025 09:34:33
== END 2025-05-13 10:47 | disposition home or self-care (01) ==
LOC: HO.US 10:46
PROVIDERS: PCP Internal Medicine; Visit Provider Urology
DX: N20.0 Calculus of kidney (principal)
CPT/HCPCS: 76775

== ENCOUNTER → 2025-05-13 10:48 | Outpatient (BNV) | payer OTHER, SELFPAY | PROVIDERS: PCP Internal Medicine; Visit Provider Radiology Diagnostic Radiology | DX: N20.0 Calculus of kidney (principal) | CPT/HCPCS: 76775 ==

== ENCOUNTER 2025-05-18 08:18 | Outpatient (AMB) | payer OTHER, SELFPAY ==
--- NOTE | 2025-05-18 08:20 | A.OFFVIS_ITS ---
Vital Signs 3 05/18/25 08:22 Height 5 ft 6 in Weight 216 lb 0.848 oz BMI 34.9 BP 142/78 H Blood Pressure Location Rt brachial Position Sitting Pulse 90 Pulse Source Pulse Oximeter Pulse Oximetry (%) 98 Oxygen Delivery Method Room Air Intake Visit Reasons: T2DM Intake Note: Patient present today to follow up on Type 2 Diabetes Mellitus: Last Diabetic Eye exam: 11/02/2024, [facility]. Last Podiatry Visit: Pt does not see a Sole Molder Most Recent HgA1C: 9.3%, 05/18/2025 Random Glucose: 244 mg/dL L Dressage Instructor Required: No Accompanied by: Self / Same As Patient Allergies No Known Allergies Allergy (Verified 05/18/25 08:21) HPI Comments Details: This is a 54-year-old male with a past medical history of cirrhosis, hepatitis- C, opioid dependence, anemia, bipolar disorder, hyperlipidemia, hypertension and type 2 diabetes presenting for diabetic management. Declined paraprofessional interpreter. He currently takes Lantus 55 units twice daily , metformin extended release 500 mg twice a day and Humalog sliding scale. Patient started Ozempic 0.25 mg 3 weeks ago. He denies side effects. He does not have a glucometer today. The patient reports significant hypoglycemia episodes with higher doses of Tresiba (up to 120 units), requiring assistance and nearly necessitating ambulance intervention. The patient notes decreased appetite and early satiety since starting Ozempic, with resultant reduced meal size and frequency. He uses a Freestyle Nyla 3 CGM but reports frequent sensor failures (lasting only 6?8 days, sometimes dislodged during sleep or daily activities) Previous testing including JOSEPH, islet cell antibody and C-peptide are negative/normal. Hemoglobin A1c 11.6% 02/09/2025. Previous medications: Toujeo caused headaches and was discontinued. Compliance issues: Patient says his psychiatric issues, stress about his dog who is older and the previous of his impact his ability to manage his diabetes and medication administration. Hypoglycemia symptoms: Denies interval episodes. Hyperglycemia symptoms: Patient says he gets no symptoms unless BG 500+ and then he feels fatigued. Interval history: Patient reports that he has issues with the pharmacy, he received all the medications but his sensors where not given He use Ozempic 0.25 mg as it was not filled as 0.5mg even though it was prescribed as 0.50mg Using Tresiba 40 units am and 30units pm Using sliding scale No lows Physical exam: General: Well appearing. NAD. CV: RRR, no murmur. No edema. Resp:Lungs clear to auscultation bilaterally Abdomen: Soft, nontender. nondistended Extremities/Neuro: No weakness or tremor of outstretched hands Laboratory Tests 12/09/24 01/27/25 02/09/25 09:05 07:22 09:43 Creatinine 0.76 Estim Creat Clear Calc 122.9 Estimated GFR > 60 Hgb A1c (Clinic) 11.6 H Microalb/Creat Ratio 13.4 CGM/Glucose logs Interpretation: Persistent hyperglycemia throughout the day in the setting of insufficient insulin use. No episode of hypoglycemia. [facility] Medical History Cirrhosis Normocytic anemia Portal vein thrombosis Bilateral kidney stones Abdominal ascites Anemia Type 2 diabetes mellitus with hyperglycemia Portal hypertensive gastropathy GERD (gastroesophageal reflux disease) Gastric ulcer History of substance abuse Bipolar disorder Moderate recurrent major depression HCV (hepatitis C virus) Acid reflux Right knee pain Transaminitis Left knee pain Pure hypercholesterolemia Essential hypertension Diabetes mellitus Surgical History History of abdominal paracentesis (06/2023) H/O colonoscopy Hx of esophagogastroduodenoscopy (08/2023) Family History Father CVD (cardiovascular disease) Diabetes Thyroid disease Maternal Grandmother Diabetes Brother Respiratory failure Asthma Sister No problems noted. Daughter No problems noted. Family/Other Mental health disorder Mother Mental health disorder Essential hypertension Social History Household Members: Other Household Members Other:: step daughter Housing: Apartment Are you a primary home health care coordinator to a significant other at home: No Do you presently have visiting nurse or other home services: No Alcohol intake: never Patient Tobacco Use Status: Current everyday Tobacco user Tobacco use type: Cigarette Cigarettes Per Day: 10 Years Smoked: 30 e-Cigarette/Vaping Use: Never Used Second Hand Smoke Exposure: No Substance Use Type: Former Substance User service: No Current occupational status: unemployed Current occupation: Right Handed Cognitive needs: Yes Hearing needs: No Vision needs: No Physical Exam Vital Signs: Oxygen Delivery Method Room Air 05/18/25 08:22 BMI result Body Mass Index 34.9 Office Procedures Glucose Monitoring Details Details: See HPI 54644 - Continuous Glucose Monitoring, patient provides equipment Procedure code (CPT) selection complete Results AMB Hemoglobin A1c 2 AMB Hemoglobin A1c 9.3 % Last Edit by ENIO House on 05/18/25 08:48 Results Reviewed Results Reviewed: Laboratory Tests 06/08/24 06/08/24 11:52 11:53 Creatinine 1.31 Estimated GFR 57 Triglycerides 99 Cholesterol 181 LDL Cholesterol, Calc 116 H HDL Cholesterol 46 Vitamin B12 781 Urine Creatinine 29.94 Urine Microalbumin < 5.0 Microalb/Creat Ratio TNP Laboratory Tests 12/04/24 12/09/24 12/09/24 08:21 09:05 09:09 Creatinine 0.74 Estimated GFR > 60 Hgb A1c (Clinic) 12.3 H AST 44 H ALT 54 H Triglycerides 116 Cholesterol 194 LDL Cholesterol, Calc 125 H HDL Cholesterol 46 Vitamin B12 798 Urine Creatinine 281.52 Urine Microalbumin 38.0 Microalb/Creat Ratio 13.4 Laboratory Tests 02/02/25 10:07 Islet Cell Ab Screen NEGATIVE Islet Cell Ab Titer TNP JOSEPH Antibody <5 Assessment & Plan Assessment & Plan (1) Type 2 diabetes mellitus with hyperglycemia: Code(s): E11.65 - Type 2 diabetes mellitus with hyperglycemia Category: Medical Qualifiers: Diabetes mellitus shelter insulin use: with bed bug exterminator use Qualified Code(s): E11.65 - Type 2 diabetes mellitus with hyperglycemia; Z79.4 - ad terminal makeup operator (current) use of insulin Plan: In summary this is a 54-year-old male with uncontrolled type 2 diabetes and cirrhosis of the liver. Discussed pathophysiology of Type II Diabetes Mellitus with the patient in detail.? I explained the bed bug exterminator risks and complications associated with uncontrolled diabetes including nephropathy, neuropathy, peripheral vascular disease, retinopathy, increased risk of heart disease and stroke.? Diabetic diet reviewed. He met with a dietitian in February of 2024. He is trying to make changes to his diet. Patient heavily depending on Tresiba, remains hyperglycemic, A1c improved from 11.6% on 02/09/2025 to 9.3% on 05/18/2025. Plan Change Tresiba at reduced dose 40 units daily; monitor for hypoglycemia and titrate as needed. Continue metformin 500mg BID Use Sliding scale as below Use Ozempic to 0.5 mg weekly as tolerated, it was prescribed previously but he didn't get it filled Advised the patient to use CGM or glucometer to monitor his BG at least 4 times Advised to increase physical to 170 minutes per week as tolerated Follow-up in 3 months Plan 30 minutes spent reviewing previous records, labs, imaging, education and documenting in the chart Orders: Orders 2 AMB Hemoglobin A1c Today E11.65 - Type 2 diabetes mellitus with hyperglycemia, Z79.4 - ad terminal makeup operator (current) use of insulin AMB Glucose Monitoring Today E11.65 - Type 2 diabetes mellitus with hyperglycemia, Z79.4 - ad terminal makeup operator (current) use of insulin Patient Instructions: D[place] Lantus a 40 unidades diarias [place] Ozempic 0.5mg por semana (Llama a la farmacia para solucionar el problema de la receta) [place] lispro/Novolog con las comidas basado en la siguiente escala Coding Level of Care Code Est Pt Level 4 (37440) Diagnoses Type 2 diabetes mellitus with hyperglycemia, with long-term current use of insulin E11.65; Z79.4 Diabetes mellitus shelter insulin use: with bed bug exterminator use CPT Codes Details - CPT: 67918 - Continuous Glucose Monitoring, patient provides equipment ([id number])
[2025-05-18 08:22] VITALS: BP 142/78; PULSE 90; O2SAT 98; BMI 34.9
[2025-05-18 08:36] LABS: Glucose, Whole Blood 244 mg/dL (60-115)
== END 2025-05-18 08:51 | disposition home or self-care (01) ==
LOC: HO.ENCR 08:19
PROVIDERS: PCP Internal Medicine; Visit Provider Student in an Organized Health Care Education/Training Program
DX: E11.65 Type 2 diabetes mellitus with hyperglycemia (principal); Z79.4 Long term (current) use of insulin
CPT/HCPCS: 99214

== ENCOUNTER → 2025-05-18 08:18 | Outpatient (BNVA) | payer OTHER, SELFPAY | PROVIDERS: PCP Internal Medicine; Visit Provider Student in an Organized Health Care Education/Training Program | DX: E11.65 Type 2 diabetes mellitus with hyperglycemia (principal); Z79.4 Long term (current) use of insulin | CPT/HCPCS: 82947; 83036; 95249; 99212 ==

== ENCOUNTER 2025-05-26 10:48 | Outpatient (AMB) | payer OTHER, SELFPAY ==
--- NOTE | 2025-05-26 11:36 | MHC.OFFVIS ---
Intake Visit Reasons: Follow up/US(set) Intake Note: Reason for Visit: Ultrasound results Urology Meds: None Blood Thinners: Eliquis (Patient reports that he is not taking Blood Thinner will leave on for Dough Mixing Machine Operator to review) Labs: None Imaging: Ultrasound 05/13 Last PVR: 0ml Concierge Manager Required: No Accompanied by: Self / Same As Patient Allergies No Known Allergies Allergy (Verified 05/27/25 00:08) HPI Comments Details: Vasile is a pleasant Estonian-speaking male. He is a patient of Dr. Otto. He is seen for the following urologic conditions - nephrolithiasis - prostatic utricle Symptoms primarily left Back pain Imaging reviewed Recommend ureteroscopy with laser lithotripsy Nephrolithiasis Left-sided symptoms Imaging - 02/15 CT There are multiple stones in both kidneys.The largest is located centrally on the left and measures 4 x 6 mm Prostatic utricle per radiology report Minimal voiding issues PFSH Medical History Cirrhosis Normocytic anemia Portal vein thrombosis Bilateral kidney stones Abdominal ascites Anemia Type 2 diabetes mellitus with hyperglycemia Portal hypertensive gastropathy GERD (gastroesophageal reflux disease) Gastric ulcer History of substance abuse Bipolar disorder Moderate recurrent major depression HCV (hepatitis C virus) Acid reflux Right knee pain Transaminitis Left knee pain Pure hypercholesterolemia Essential hypertension Diabetes mellitus Surgical History History of abdominal paracentesis (06/2023) H/O colonoscopy Hx of esophagogastroduodenoscopy (08/2023) Family History Father CVD (cardiovascular disease) Diabetes Thyroid disease Maternal Grandmother Diabetes Brother Respiratory failure Asthma Sister No problems noted. Daughter No problems noted. Family/Other Mental health disorder Mother Mental health disorder Essential hypertension Social History Household Members: Other Household Members Other:: step daughter Housing: Apartment Are you a primary family day care provider to a significant other at home: No Do you presently have visiting nurse or other home services: No Alcohol intake: never Patient Tobacco Use Status: Current everyday Tobacco user Tobacco use type: Cigarette Cigarettes Per Day: 10 Years Smoked: 30 e-Cigarette/Vaping Use: Never Used Second Hand Smoke Exposure: No Substance Use Type: Former Substance User service: No Current occupational status: unemployed Current occupation: Right Handed Cognitive needs: Yes Hearing needs: No Vision needs: No Review of Systems Const Denies chills and Denies fever(s) Card Reports no additional complaints and Denies syncope Resp Denies cough GI Denies abdominal pain and Denies heartburn Reports as per HPI and Denies change in libido Neuro Denies syncope Psych Denies change in libido Endo Denies change in libido Physical Exam Const General: cooperative, healthy appearing, comfortable and no acute distress Orientation/consciousness: patient oriented x3 HEENT Face and sinus: Yes normal facial exam Mouth: moist mucous membranes Neck Neck: Yes normal visual inspection, Yes full ROM and Yes trachea midline Chest Chest palpation & inspection: normal inspection of the chest Resp Effort & Inspection: normal respiratory effort, able to speak in complete sentences and no respiratory distress GI Inspection: Yes normal to inspection Back/Spine/Pelvis Cervical Spine: normal cervical lordosis Thoracic/Lumbar Spine: thoracic and lumbar spine normal to inspection Skin General skin exam: no rashes or lesions noted Neuro General: patient oriented x3, gait normal, tone normal and moves all extremities Extrem General: Yes normal to inspection and Yes capillary refill normal Assessment & Plan Assessment & Plan (1) Nephrolithiasis: Code(s): N20.0 - Calculus of kidney Category: Medical Plan Ureteroscopy We discussed the nature of the decision and reasonable alternatives for performing ureteroscopy. Options such as medical therapy were discussed. Interventions include chemical dissolution, ESWL, ureteroscopy with laser lithotripsy and stent placement, PCNL. The relative uncertainties and benefits related to each alternate procedure were adequately discussed. General surgical risks including, but not limited to - pain, bleeding, infection, myocardial infarction, pulmonary embolus, deep vein thrombosis and cerebrovascular accident which may result in further hospitalization were discussed. Full disclosure of the procedure as well as all major risks, benefits and complications were discussed including but not limited to damage to the urethra, bladder and kidney infection, damage to the ureter, stent migration or malposition, scarring to the renal pelvis, remnant stone fragments, subsequent stone passage with need for secondary procedures. The overall secondary procedure rate is approximately 10-15%. The overall clearance rate is approximately 90-95%. Success of the procedure in the short-term does not necessarily guarantee that long-term success will be maintained. Suitable follow up will need to be maintained. The patient showed understanding of discussion and wishes to proceed with - cystoscopy, retrograde, ureteroscopy, possible lithotripsy/stone basketing and stent on the left flexible side Patient Instructions: This note is constructed using voice recognition software. While every effort has been made to ensure accuracy general dentist errors may have been included. Imaging studies, laboratory and physical exam results were discussed and reviewed in detail. No major barriers to patient understanding were identified. An opportunity to ask questions regarding the treatment plan was provided. All questions were answered. The patient expressed understanding and agreement with the above treatment plan. The patient is aware they should contact our office by phone for worsening of their current condition or the appearance of new urologic symptoms. Compliance is encouraged with any medications and followup testing that is ordered. It is a privilege to participate in the urologic care of your patient. If you have any questions or concerns regarding treatment for the above conditions, or other urologic issues, please do not hesitate to contact me. The office telephone contact is [phone]. Sincerely, Dr Randall Wright MD, [facility] - Urology Compassionate Specialist Care for the Genitourinary System Coding Level of Care Code Est Pt Level 4 (18860) Diagnoses Nephrolithiasis N20.0
== END 2025-05-26 12:31 | disposition home or self-care (01) ==
LOC: HO.HUSH 10:49
PROVIDERS: PCP Internal Medicine; Visit Provider Urology
DX: N20.0 Calculus of kidney (principal)
CPT/HCPCS: 99214

== ENCOUNTER → 2025-05-26 10:48 | Outpatient (BNVA) | payer OTHER, SELFPAY | PROVIDERS: PCP Internal Medicine; Visit Provider Urology | DX: N20.0 Calculus of kidney (principal) | CPT/HCPCS: 99212 ==

== ENCOUNTER 2025-05-26 23:58 | Emergency (ER) | payer OTHER, SELFPAY ==
--- NOTE | 2025-05-27 | ECG_ITS ---
Test Reason : N/V Blood Pressure : */* mmHG Vent. Rate : 77 BPM Atrial Rate : 77 BPM P-R Int : 164 ms QRS Dur : 90 ms QT Int : 384 ms P-R-T Axes : -5 -32 16 degrees QTcB Int : 434 ms Normal sinus rhythm Left axis deviation Minimal voltage criteria for LVH, may be normal variant ( R in aVL ) Possible Anterior infarct , age undetermined Abnormal ECG When compared with ECG of 28-Jul-2023 09:59, T wave amplitude has decreased in Anterior leads Referred By: Generic ED Physician Electronically Signed By: PARKER PEREIRA
[2025-05-27 00:03] VITALS: BP 137/82; BP 137/92; PULSE 86; PULSE 92; RESP 17; TEMP 36.8; O2SAT 100; O2SAT 95; BMI 34.8
[2025-05-27 00:28] LABS: MANUAL DIFF FLAG NO
[2025-05-27 00:35] VITALS: BP 137/92; PULSE 86; RESP 17; TEMP 36.8; O2SAT 95
[2025-05-27 00:36] LABS: Hematocrit 39.3 % (42.0-52.0); Hemoglobin 13.5 g/dl (14.0-18.0); Imm Gran Abs Auto 0.01 X10*3/uL (0.00-0.03); Imm Gran Pct Auto 0.3 % (0.0-0.4); Lymphocytes Absolute Auto 1.1 X10*3/uL (1.2-4.9); Mean Corpuscular HGB Conc 34.4 g/dl (31.0-36.0); Mean Corpuscular Hemoglobin 29.2 pg (27.0-33.0); Mean Corpuscular Volume 84.9 fL (80.0-98.0); NRBC Abs Auto 0.000 X10*3/uL (0.0-0.012); NRBC Pct Auto 0.0 /100WBC (0.0-0.2); Red Blood Count 4.63 X10*6/uL (4.60-5.80); White Blood Count 3.9 X10*3/uL (4.8-10.8)
[2025-05-27 00:39] LABS: INTERNATIONAL NORM RATIO 1.2 (0.9-1.1); Platelet Count 69 X10*3/uL (160-400); Prothrombin Time 15.1 SEC (11.2-13.5)
--- NOTE | 2025-05-27 00:41 | ED.GIBLEED ---
HPI - GI Bleed General Chief complaint: GI Bleed Stated complaint: VOMITING BRIGHT RED Time Seen by Provider: 05/27/25 00:16 History of Present Illness ED Provider: suyapa HPI Narrative: 55-year-old male who reports to me an isolated episode he felt he spit up or vomited a small amount of bright red blood. He shows me a picture of this - it's possibly 2-3 cc's of bright red blood on the photo. No repeated episodes, denies black, dark bloody stools, no coffee grounds. Denies any chest or abdominal pain. He's had episodes bleeding in the past from varices, currently without abdominal chest pain, throat pain, denies epistaxis. Related Data Home Medications ?Medication ?Instructions ?Recorded ?Confirmed quetiapine 100 mg tablet 150 mg PO BEDTIME 09/06/23 02/23/25 buprenorphine 8 mg-naloxone 2 mg 3 film sublingual DAILY 01/24/25 02/23/25 sublingual film insulin glargine 100 unit/mL (3 70 unit subcut BID 04/22/25 04/22/25 mL) subcutaneous pen (Lantus Solostar U-100 Insulin) carvedilol 3.125 mg tablet 3.125 mg PO BID 05/10/25 Previous Rx's ?Medication ?Instructions ?Recorded Shower Chair #1 ea 05/22/22 handheld shower #1 ea 05/22/22 nonslip shower mat #1 ea 05/22/22 urinal #1 ea 10/07/24 insulin syringe-needle U-100 0.3 #100 ea 12/04/24 mL 31 gauge x 11/06 insulin syringe-needle U-100 1 mL #100 ea 12/04/24 31 gauge x 11/06 cholecalciferol (vitamin D3) 50 50 mcg PO DAILY 90 days #90 caps 12/15/24 mcg (2,000 unit) capsule spironolactone 25 mg tablet 50 mg PO DAILY 90 days #180 tabs 12/15/24 carvedilol 6.25 mg tablet 6.25 mg PO BID #60 tabs 01/27/25 sucralfate 100 mg/mL oral 1 g (10 mL) PO TID #900 mL 01/27/25 suspension acetone (urine) test (Ketone Care #100 ea 04/22/25 strips) amlodipine 5 mg tablet 5 mg PO DAILY 90 days #90 tabs 04/22/25 apixaban 5 mg tablet (Eliquis) 5 mg PO BID 90 days #180 tabs 04/22/25 blood sugar diagnostic (OneTouch #200 ea 04/22/25 Verio test strips) blood-glucose meter (OneTouch #1 ea 04/22/25 Verio Flex Meter) blood-glucose sensor (FreeStyle #2 ea 04/22/25 Nyla 3 Plus Sensor device) blood-glucose,apartment maintenance,cont #1 ea 04/22/25 (FreeStyle Nyla 3 Mobile) furosemide 20 mg tablet 20 mg PO DAILY 90 days #90 tabs 04/22/25 insulin lispro 100 unit/mL See Rx Instructions subcut TID #15 04/22/25 subcutaneous pen (Humalog KwikPen mL (U-100) Insulin) lancets 33 gauge (OneTouch Delica #200 ea 04/22/25 Plus Lancet) lidocaine 5 % topical patch 1 patch topical DAILY 30 days #30 04/22/25 ea pen needle, diabetic 31 gauge x #200 ea 04/22/25 5/16 (1st Tier Unifine Pentips) semaglutide 0.25 mg or 0.5 mg (2 0.5 mg (0.736 mL) subcut QWEEK 4 04/22/25 mg/3 mL) subcutaneous pen injector weeks #3 mL (Ozempic) metformin 500 mg tablet,extended 500 mg PO BID #180 tabs 05/18/25 release 24 hr Allergies Allergy/AdvReac Type Severity Reaction Status Date / Time No Known Allergies Allergy Verified 05/27/25 00:08 FOR[facility]LY [facility] Past Medical History Medical History Cirrhosis Normocytic anemia Portal vein thrombosis Bilateral kidney stones Abdominal ascites Anemia Type 2 diabetes mellitus with hyperglycemia Portal hypertensive gastropathy GERD (gastroesophageal reflux disease) Gastric ulcer History of substance abuse Bipolar disorder Moderate recurrent major depression HCV (hepatitis C virus) Acid reflux Right knee pain Transaminitis Left knee pain Pure hypercholesterolemia Essential hypertension Diabetes mellitus Surgical History History of abdominal paracentesis (06/2023) H/O colonoscopy Hx of esophagogastroduodenoscopy (08/2023) Family History Family History Father CVD (cardiovascular disease) Diabetes Thyroid disease Maternal Grandmother Diabetes Brother Respiratory failure Asthma Sister No problems noted. Daughter No problems noted. Family/Other Mental health disorder Mother Mental health disorder Essential hypertension Social History Social History Household Members: Other Household Members Other:: step daughter Housing: Apartment Are you a primary hospice patient care secretary to a significant other at home: No Do you presently have visiting nurse or other home services: No Alcohol intake: never Patient Tobacco Use Status: Current everyday Tobacco user Tobacco use type: Cigarette Cigarettes Per Day: 10 Years Smoked: 30 e-Cigarette/Vaping Use: Never Used Second Hand Smoke Exposure: No Substance Use Type: Former Substance User service: No Current occupational status: unemployed Current occupation: Right Handed Cognitive needs: Yes Hearing needs: No Vision needs: No Physical Exam Exam: Exam: EXAM: Gen: Alert, awake, well appearing, well hydrated. Head: Atraumatic Eyes: Anicteric, Normal conjunctiva. ENT: Moist mucosa, no pallor. Neck: Supple. Respiratory: Breathing comfortably, No distress.Clear to auscultation bilaterally, symmetric chest expansion, No wheeze, rales, ronchi. Cardiovascular: Regular rate and rhythm. No murmurs or rub. Well perfused periphery, warm extremities. No edema. Abdominal: Soft, no objective distension. No palpable masses or obvious organomegaly. No focal tenderness, no guarding, no rebound tenderness or other peritoneal findings. : No flank tenderness. Neuro: Alert. Gross movement of all extremities intact. Vital signs: See flowsheet Vital Signs: Vital Signs: Last Vital Signs Temp 98.2 F 05/27/25 02:07 Pulse 79 05/27/25 02:07 Resp 15 05/27/25 02:07 BP 140/75 H 05/27/25 02:07 Pulse Ox 98 05/27/25 02:07 O2 Del Method Room Air 05/27/25 02:07 BMI result Body Mass Index 34.8 Medical Decision Making Medical Decision Making MDM Narrative: 55-year-old male with history of varices, one episode of hematemesis (small volume). Patient monitored several hours in the ED without hematemesis, soft non-tender abdomen, stable hemodynamics. Shared decision-making discussion with patient who has been through admissions with upper endoscopy and banding in the past. We discussed the possibility and the unpredictability of upper GI bleedings with varices. Offered admission vs. checking a repeat CBC and monitoring briefly. He was comfortable after repeat CBC showed no significant drop, and he's had no subsequent episodes of hematemesis. However, he understands after our discussion that any recurrent or repeated episodes of hematemesis, syncope, severe abdominal pain, lightheadedness, bright red blood perectum, or other significant findings that he should return back immediately to the emergency department or call 911 Lab Data 05/27/25 01:29 05/27/25 00:23 Labs: Lab Results 05/27/25 05/27/25 Range/Units 00:23 01:29 WBC 3.9 L 3.8 L (4.8-10.8) X10*3/uL RBC 4.63 4.57 L (4.60-5.80) X10*6/uL Hgb 13.5 L 13.5 L (14.0-18.0) g/dl Hct 39.3 L 38.8 L (42.0-52.0) % MCV 84.9 84.9 (80.0-98.0) fL MCH 29.2 29.5 (27.0-33.0) pg MCHC 34.4 34.8 (31.0-36.0) g/dl RDW 14.1 14.0 (11.0-16.0) % Plt Count 69 L 64 L (160-400) X10*3/uL MPV 9.4 9.8 (9.4-12.4) fL Immature Gran % (Auto) 0.3 0.0 (0.0-0.4) % Neut % (Auto) 57.5 56.4 (45-73) % Lymph % (Auto) 28.3 29.0 (20-40) % [place] % (Auto) 10.8 11.2 H (2-11) % Eos % (Auto) 2.8 2.9 (0-4) % Baso % (Auto) 0.3 0.5 (0-2) % Lymph # (Auto) 1.1 L 1.1 L (1.2-4.9) X10*3/uL [place] # (Auto) 0.4 0.4 (0.1-1.2) X10*3/uL Eos # (Auto) 0.1 0.1 (0.0-0.4) X10*3/uL Baso # (Auto) 0.0 0.0 (0.0-0.2) X10*3/uL Abs Immat Gran (auto) 0.01 0.00 (0.00-0.03) X10*3/uL Absolute Neuts (auto) 2.2 2.1 (2.0-8.3) x10*3/uL Absolute Nucleated RBC 0.000 0.000 (0.0-0.012) X10*3/uL Nucleated RBC % (auto) 0.0 0.0 (0.0-0.2) /100WBC PT 15.1 H (11.2-13.5) SEC INR 1.2 H (0.9-1.1) Sodium 140 (135-145) mmol/L Potassium 3.5 (3.3-5.1) mmol/L Chloride 111 H (96-108) mmol/L Carbon Dioxide 22 (22-29) mmol/L Anion Gap 11 L (12-20) BUN 18 H (9-16) mg/dL Creatinine 0.81 (0.5-1.4) mg/dL Estim Creat Clear Calc 114.1 Estimated GFR > 60 Random Glucose 232 H (60-115) mg/dL Calcium 9.1 D (8.4-10.2) mg/dL Total Bilirubin 1.5 H (0.0-1.0) mg/dL AST 55 H (5-37) U/L ALT 58 H (0-40) U/L Alkaline Phosphatase 159 H (39-117) U/L Troponin I High Sens 2.8 (<3.5-35.0) ng/L Total Protein 6.9 (6.5-8.0) g/dL Albumin 4.3 (3.5-5.0) g/dL Lipase 46 (8-78) U/L Discharge Plan Discharge Clinical Impression: Hematemesis Patient Disposition: Home, Self-Care Instructions: Acute Nausea and Vomiting (ED), Hematemesis (ED) Additional Instructions: You had isolated episode of hematemesis your blood counts including on repeat testing are normal and stay as we discussed together admission was offered but we felt it reasonable this is single episode and you have stable blood pressure heart rate and blood counts. Return back at anytime if you have persistent episodes please call your GI doctor let them know they have some bleeding going on continue taking all your medications. Prescriptions: No Action cholecalciferol (vitamin D3) 50 mcg (2,000 unit) capsule 50 mcg PO DAILY 90 Days Qty: 90 1RF spironolactone 25 mg tablet 50 mg PO DAILY 90 Days Qty: 180 1RF Protocol: Hold for SBP< HOLD for SBP < : 90 (DME) FreeStyle Nyla 3 Mobile Misc See Rx Instructions .ROUTE .MEDSUPPLY Qty: 1 0RF Rx Instructions: as directed amlodipine 5 mg tablet 5 mg PO DAILY 90 Days Qty: 90 3RF Eliquis 5 mg tablet 5 mg PO BID 90 Days Qty: 180 1RF furosemide 20 mg tablet 20 mg PO DAILY 90 Days Qty: 90 1RF Protocol: Hold for SBP< HOLD for SBP < : 90 lidocaine 5 % adhesive patch,medicated 1 patch topical DAILY 30 Days Qty: 30 1RF Rx Instructions: leave on most painful area for up to 12 hrs metformin 500 mg tablet extended release 24 hr 500 mg PO BID Qty: 180 3RF Rx Instructions: Day 500 mg twice daily buprenorphine-naloxone 8-2 mg film 3 film sublingual DAILY carvedilol 6.25 mg Tablet 6.25 mg PO BID Qty: 60 0RF Protocol: Hold for SBP/HR < HOLD for SBP < : 90 HOLD for HR < : 60 sucralfate 100 mg/mL Suspension 1 g PO TID Qty: 900 0RF (DME) nonslip shower mat See Rx Instructions .Route .MEDSUPPLY Qty: 1 0RF Rx Instructions: As directed (DME) Shower Chair Misc See Rx Instructions .Route Qty: 1 0RF Rx Instructions: As directed (DME) handheld shower See Rx Instructions .Route .MEDSUPPLY Qty: 1 0RF Rx Instructions: As directed (DME) urinal See Rx Instructions .Route .MEDSUPPLY Qty: 1 0RF Rx Instructions: As directed (DME) insulin syringe-needle U-100 1 mL 31 gauge x 5/16 syringe See Rx Instructions .Route Qty: 100 5RF Rx Instructions: As directed to administer Lantus insulin once daily. (DME) insulin syringe-needle U-100 0.3 mL 31 gauge x 5/16 syringe See Rx Instructions .Route Qty: 100 5RF Rx Instructions: As directed to administer Humalog three times daily carvedilol 3.125 mg tablet 3.125 mg PO BID quetiapine 100 mg tablet 150 mg PO BEDTIME (DME) OneTouch Verio test strips Strip See Rx Instructions .ROUTE .MEDSUPPLY Qty: 200 5RF Rx Instructions: Use as directed to check blood glucose five times daily. (DME) blood-glucose meter [OneTouch Verio Flex meter] [facility] [place] See Rx Instructions .ROUTE .MEDSUPPLY Qty: 1 0RF Rx Instructions: Use as directed to check blood glucose five times daily for type II diabetes. (DME) FreeStyle Nyla 3 Plus Sensor Device See Rx Instructions .ROUTE .MEDSUPPLY Qty: 2 11RF Rx Instructions: Apply 1 new sensor every 15 days as directed to monitor blood glucose continuously. (DME) Ketone Care Strip See Rx Instructions .Route Qty: 100 3RF Rx Instructions: As directed. insulin glargine [Lantus Solostar U-100 Insulin] 100 unit/mL (3 mL) insulin pen 70 unit subcut BID Rx Instructions: Injecte Lantus 70 unidades en [place] insulin lispro [Humalog KwikPen Insulin] 100 unit/mL insulin pen See Rx Instructions subcut TID Qty: 15 3RF Rx Instructions: 12-30 units tid with meals subcutaneously 3 times a day; (DME) lancets [OneTouch Delica Plus Lancet] [facility] See Rx Instructions .ROUTE .MEDSUPPLY Qty: 200 5RF Rx Instructions: Use as directed to check blood glucose fives times daily. (DME) pen needle, diabetic [1st Tier Unifine Pentips] 31 gauge x 5/16 needle See Rx Instructions .Route Qty: 200 6RF Rx Instructions: As directed qid Ozempic 0.25 mg or 0.5 mg (2 mg/3 mL) pen injector 0.5 mg subcut QWEEK 28 Days Qty: 3 0RF Rx Instructions: for 4 weeks Interventions: ED Discharge Assessment Last Done: 05/27/25 02:07 Discharge Date/Time: 05/27/25 02:08 Print Language: [place]
[2025-05-27 00:42] LABS: Alanine Aminotransferase 58 U/L (0-40); Albumin Level 4.3 g/dL (3.5-5.0); Alkaline Phosphatase 159 U/L (39-117); Anion Gap 11 (12-20); Aspartate Amino Transferase 55 U/L (5-37); Blood Urea Nitrogen 18 mg/dL (9-16); Calcium 9.1 mg/dL (8.4-10.2); Carbon Dioxide 22 mmol/L (22-29); Chloride 111 mmol/L (96-108); Creatinine Clr Calc Pharmacy 114.1; Estimated Glomerular Filt Rate > 60; Lipase 46 U/L (8-78); Potassium 3.5 mmol/L (3.3-5.1); Sodium 140 mmol/L (135-145); Total Protein 6.9 g/dL (6.5-8.0)
[2025-05-27 00:49] LABS: Troponin-I High Sensitivity 2.8 ng/L (<3.5-35.0)
[2025-05-27 01:36] LABS: Hematocrit 38.8 % (42.0-52.0); Hemoglobin 13.5 g/dl (14.0-18.0); Imm Gran Abs Auto 0.00 X10*3/uL (0.00-0.03); Imm Gran Pct Auto 0.0 % (0.0-0.4); Lymphocytes Absolute Auto 1.1 X10*3/uL (1.2-4.9); MANUAL DIFF FLAG NO; Mean Corpuscular HGB Conc 34.8 g/dl (31.0-36.0); Mean Corpuscular Hemoglobin 29.5 pg (27.0-33.0); Mean Corpuscular Volume 84.9 fL (80.0-98.0); NRBC Abs Auto 0.000 X10*3/uL (0.0-0.012); NRBC Pct Auto 0.0 /100WBC (0.0-0.2); Red Blood Count 4.57 X10*6/uL (4.60-5.80); White Blood Count 3.8 X10*3/uL (4.8-10.8)
--- NOTE | 2025-05-27 01:41 | PC.NURSE ---
late entry- pt biba from home, a&ox4, respirations even and unlabored. pt reports one episode of blood in vomit with clots and an episode of blood in urine. on arrival, vss and reports abdominal pain but denies vomiting at this time. 18g placed in l fa and labs obtained.
[2025-05-27 01:45] LABS: Platelet Count 64 X10*3/uL (160-400)
[2025-05-27 02:07] VITALS: BP 140/75; PULSE 79; RESP 15; TEMP 36.8; O2SAT 98
== END 2025-05-27 02:08 | disposition home or self-care (01) ==
PROVIDERS: Emergency Provider Emergency Medicine
DX: K92.0 Hematemesis (principal); R94.31 Abnormal electrocardiogram [ECG] [EKG]; I10 Essential (primary) hypertension; E11.9 Type 2 diabetes mellitus without complications; E78.00 Pure hypercholesterolemia, unspecified; K21.9 Gastro-esophageal reflux disease without esophagitis
CPT/HCPCS: 36415; 80053; 83690; 84484; 85025; 85610; 93005; 99283; 99285

== ENCOUNTER → 2025-05-27 00:14 | Outpatient (BNV) | payer OTHER, SELFPAY | PROVIDERS: Emergency Provider Emergency Medicine; Visit Provider Internal Medicine | DX: R94.31 Abnormal electrocardiogram [ECG] [EKG] (principal); R11.2 Nausea with vomiting, unspecified | CPT/HCPCS: 93010 ==

== ENCOUNTER 2025-06-07 08:07 | Outpatient (AMB) | payer OTHER, SELFPAY ==
--- NOTE | 2025-06-07 08:22 | MHC.PC.OV ---
Vital Signs 06/07/25 08:33 Height 5 ft 6 in Weight 216 lb 2 oz BMI 34.9 BP 160/88 H Pulse 95 Pulse Source Pulse Oximeter Temp 97.3 F Temp Source Temporal Artery Scan Pulse Oximetry (%) 97 Oxygen Delivery Method Room Air Intake Visit Reasons: PE- A1C Nurse'S Aides Teacher Required: No Accompanied by: Self / Same As Patient Allergies No Known Allergies Allergy (Verified 06/07/25 08:46) Medication List - Last Reconciled 06/07/25 by Kierra Flanagan MD acetone (urine) test (Ketone Care strips) As directed. amlodipine 5 mg PO DAILY 90 days apixaban (Eliquis) 5 mg PO BID 90 days blood sugar diagnostic (OneTouch Verio test strips) Use as directed to check blood glucose five times daily. blood-glucose meter (EdynTouch Verio Flex Meter) Use as directed to check blood glucose five times daily for type II diabetes. blood-glucose sensor (FreeStyle Nyla 3 Plus Sensor device) Apply 1 new sensor every 15 days as directed to monitor blood glucose continuously. blood-glucose,christian science nurse,cont (FreeStyle Nyla 3 [place]) as directed buprenorphine-naloxone 8-2 mg 3 film sublingual DAILY carvedilol 6.25 mg See Protocol PO BID carvedilol 3.125 mg PO BID cholecalciferol (vitamin D3) 50 mcg PO DAILY 90 days furosemide 20 mg See Protocol PO DAILY 90 days [handheld shower As directed] insulin glargine (Lantus Solostar U-100 Insulin) 70 units subcut BID insulin lispro (Humalog KwikPen (U-100) Insulin) 12-30 units tid with meals subcutaneously 3 times a day; insulin syringe-needle U-100 As directed to administer Lantus insulin once daily. insulin syringe-needle U-100 As directed to administer Humalog three times daily lancets (EdynTouch Delica Plus Lancet) Use as directed to check blood glucose fives times daily. lidocaine 5% 1 patch topical DAILY 30 days metformin ER 500 mg PO BID [nonslip shower mat As directed] pen needle, diabetic (1st Tier Unifine Pentips) As directed qid quetiapine 150 mg PO BEDTIME semaglutide (Ozempic) 0.5 mg (0.736 mL) subcut QWEEK 4 weeks Shower Chair As directed spironolactone 50 mg See Protocol PO DAILY 90 days sucralfate 1 g (10 mL) PO TID [urinal As directed] Tobacco use date assessed: 02/09/25 Dental Screening Dental Screen Date: 02/09/25 HPI HPI Comments History of Present Illness Details The patient is a 55 year old male presenting for a physical examination. He has a history of hypertension and notes that his blood pressure was elevated at today's visit because he did not take his amlodipine. He also has a history of diabetes, for which he takes metformin, Lantus, and Humalog. He reports his blood sugar is often around 500. Regarding weight management, the patient was on Ozempic 0.25 mg, which initially helped with appetite suppression and a 3-pound weight loss. However, the dose was not increased to 0.50 mg as expected, and he regained the 3 pounds after receiving the 0.25 mg dose again. The patient has experienced hematemesis, which he attributes to swollen veins causing bleeding into the stomach. He was not hospitalized for this episode and his symptoms resolved. A colonoscopy has been ordered and is now scheduled for an earlier date in the morning to accommodate his diabetes and need to fast. The patient is also scheduled for an eye laser surgery in six weeks for blood clots found in his eye. His current medications include Eliquis 5 mg, carvedilol 6.25 mg, vitamin D, furosemide 20 mg, spironolactone, and Carafate. He also takes Seroquel, which is prescribed by his psychiatrist. [facility] Medical History Cirrhosis Normocytic anemia Portal vein thrombosis Bilateral kidney stones Abdominal ascites Anemia Type 2 diabetes mellitus with hyperglycemia Portal hypertensive gastropathy GERD (gastroesophageal reflux disease) Gastric ulcer History of substance abuse Bipolar disorder Moderate recurrent major depression HCV (hepatitis C virus) Acid reflux Right knee pain Transaminitis Left knee pain Pure hypercholesterolemia Essential hypertension Diabetes mellitus Surgical History History of abdominal paracentesis (06/2023) H/O colonoscopy Hx of esophagogastroduodenoscopy (08/2023) Family History Father CVD (cardiovascular disease) Diabetes Thyroid disease Maternal Grandmother Diabetes Brother Respiratory failure Asthma Sister No problems noted. Daughter No problems noted. Family/Other Mental health disorder Mother Mental health disorder Essential hypertension Social History Household Members: Other Household Members Other:: step daughter Housing: Apartment Are you a primary healthcare account manager to a significant other at home: No Do you presently have visiting nurse or other home services: No Alcohol intake: never Patient Tobacco Use Status: Current everyday Tobacco user Tobacco use type: Cigarette Cigarettes Per Day: 10 Years Smoked: 30 e-Cigarette/Vaping Use: Never Used Second Hand Smoke Exposure: No Substance Use Type: Former Substance User service: No Current occupational status: unemployed Current occupation: Right Handed Cognitive needs: Yes Hearing needs: No Vision needs: No Questionnaire PHQ-9 Over the last 2 weeks, how often have you been bothered by any of the following problems? 1. Little interest or pleasure in doing things: not at all 2. Feeling down, depressed, or hopeless: nearly every day 3. Trouble falling or staying asleep, or sleeping too much: nearly every day 4. Feeling tired or having little energy: nearly every day 5. Poor appetite or overeating: more than half the days 6. Feeling bad about yourself - or that you are a failure or have let yourself or your family down: nearly every day 7. Trouble concentrating on things, such as reading the newspaper or watching television: nearly every day 8. Moving or speaking so slowly that other people could have noticed. Or the opposite - being so fidgety or restless that you have been moving around a lot more than usual: more than half the days 9. Thoughts that you would be better off or of hurting yourself in some way: more than half the days Total score: 21 Depression Screening Interpretation: Positive (no suicidal thoughts) Depression Screening Follow-up: Existing condition, In treatment, Community Mental Health Worker F/U and Follow-up Visit Requested Depression Screening Done: Yes 85783 - PHQ-9 Billing: Yes Source: Developed by Drs. Yaron Pinto, Carmen Black, Cameron Mc and colleagues, with an educational elizabeth from [employer]. Thrive Questionnaire Date Thrive assessed: 10/07/24 I am a: Patient What is your living situation today?: I have a steady place to live Within the past 12 months, did the food you bought not last and you didn't have the money to get more?: Sometimes True Within the past 12 months, did you worry whether your food would run out before you got money to buy more?: Often true Do you have trouble paying for medicines?: No Do you have trouble getting transportation to medical appointments?: Yes Do you have trouble paying your heating and electricity bill?: No Do you have trouble taking care of your child, family member or friend?: Yes Do you have trouble with day-to-day activities such as bathing, preparing meals, shopping, managing finances, etc.?: Yes Are you currently unemployed and looking for a job?: Yes Are you interested in more education?: Yes Please select the resources that you would like help with: Daily support Currently or been in a relationship where the following occur: I choose not to answer THRIVE Score: 3 AUDIT C Alcohol Use Questionnaire (AUDIT-C) 1. How often do you have a drink containing alcohol?: Never Total Score: 0 Score Reviewed/Action Taken: No JOSEPH-7 AMB Questionnaire JOSEPH-7 Date JOSEPH - 7 assessed: 02/09/25 Feeling nervous, anxious, or on edge: 3 = Nearly every day Not being able to stop or control worryin = Nearly every day Worrying too much about different things: 3 = Nearly every day Trouble relaxin = Nearly every day Being so restless that it is hard to sit still: 3 = Nearly every day Becoming easily annoyed or irritable: 3 = Nearly every day Feeling afraid as if something awful might happen: 3 = Nearly every day Total JOSEPH-7 score (0-4 normal; 5-9 mild; 10-14 moderate; 15-21 severe): 21 Source: Developed by Drs. Yaron Pinto, Carmen Black, Cameron Mc and colleagues, with an educational elizabeth from [employer]. JOSEPH-7 Assessment Billing JOSEPH-7 Assessment Tool: JOSEPH-7 Assessment 43482 Review of Systems Const All systems reviewed & are unremarkable except as noted in HPI and below Card Denies chest pain at rest, Denies chest pain with activity, Denies edema, Denies irregular heart rhythm, Denies claudication, Denies dyspnea, Denies dyspnea on exertion, Denies orthopnea, Denies paroxysmal nocturnal dyspnea and Denies slow heart rate Resp Denies cough, Denies dyspnea and Denies dyspnea on exertion GI Denies abdominal pain, Denies change in bowel habits, Denies excessive flatus, Denies nausea and Denies vomiting Denies urinary hesitancy, Denies urinary incontinence and Denies urinary urgency Musc Denies abnormal gait, Denies atrophy, Denies deformity and Denies limited range of motion Skin/Breast Denies bleeding lesions, Denies changing lesions and Denies rash Neuro Denies abnormal gait and Denies lack of coordination Physical exam (Primary Care) Vital Signs: Last Vital Signs Temp 97.3 F 06/07/25 08:33 Pulse 95 06/07/25 08:33 BP 160/88 H 06/07/25 08:33 Pulse Ox 97 06/07/25 08:33 Oxygen Delivery Method Room Air 06/07/25 08:33 BMI result Body Mass Index 34.9 BMI Assessment/Plan discussion: High BMI High, discussed plan: lifestyle, weight reduction, dietary and physical activity Tobacco/Smoking Status: Tobacco use Status Tobacco use date assessed 02/09/25 06/07/25 08:22 Patient Tobacco Use Status Current everyday Tobacco 06/07/25 08:22 Tobacco use type Cigarette 06/07/25 08:22 e-Cigarette/Vaping Use Never Used 06/07/25 08:22 Are you ready to quit: Yes Tobacco cessation counseling provided: Yes Items discussed: Nicotine replacement and QuitWorks Relapse Prevention: discussed the importance of a supportive environment, discussed extending NRT, discussed negative mood or depression after quitting and weight gain after smoking is common Number of minutes spent counselin CPT code: Less than 3 minutes PHQ-9: PHQ-9 Score PHQ-9: Total score 21 06/07/25 08:51 Depression Screening Interpretation: Positive (no suicidal thoughts) Depression Screening Follow-up: Existing condition, In treatment, Community Mental Health Worker F/U and Follow-up Visit Requested Thrive Assessment: Date of Thrive Assessment Date Thrive assessed 10/07/24 06/07/25 08:22 Currently or been in a relationship where the following occur: I choose not to answer HENMT Head: Yes normal to inspection, Yes normocephalic and Yes atraumatic Ears: external ears normal Eyes General: appearance normal, both eyes and all related structures Eyelids: Yes eyelids normal Conjunctivae: conjunctivae normal Neck Neck: Yes normal visual inspection and Yes supple Resp Effort & Inspection: normal respiratory effort Auscultation: clear to auscultation bilaterally Cardio Jugular venous distension: no JVD Rate: regular rate Rhythm: regular rhythm Heart sounds: S1 normal heart sound present and S2 normal heart sound present GI Inspection: Yes normal to inspection Palpation (GI): Soft to palpation and nontender Auscultation: normal bowel sounds Skin General skin exam: no rashes or lesions noted Neuro General: no focal motor deficits Extrem General: Yes full ROM Psych Appearance: grossly normal Coding Level of Care Code Est Pt Prev Care 40-64y(40820) Diagnoses Physical exam Z00.00 Portal hypertension K76.6 Cirrhosis of liver with ascites, unspecified hepatic cirrhosis type K74.60; R18.8 Hepatic cirrhosis type: unspecified hepatic cirrhosis Ascites presence: with ascites Type 2 diabetes mellitus with hyperglycemia, with long-term current use of insulin E11.65; Z79.4 Diabetes mellitus superintendent container terminal insulin use: with usp use Opioid dependence on agonist therapy F11.20 History of substance abuse F19.11 Bipolar affective disorder in remission F31.70 Active/Remission status: in remission of unspecified degree Moderate recurrent major depression F33.1 Additional Codes JOSEPH-7 Assessment Billing - JOSEPH-7 Assessment Tool: JOSEPH-7 Assessment 19919 ([id number]) PHQ-9 - 05882 - PHQ-9 Billing: Yes ([id number]) Time Spent (min) 31 Assessment & Plan Assessment & Plan (1) Physical exam: Code(s): Z00.00 - Encounter for general adult medical examination without abnormal findings Category: Medical (2) Portal hypertension: Code(s): K76.6 - Portal hypertension Category: Medical (3) Cirrhosis: Code(s): K74.60 - Unspecified cirrhosis of liver Category: Medical Qualifiers: Hepatic cirrhosis type: unspecified hepatic cirrhosis Ascites presence: with ascites Qualified Code(s): K74.60 - Unspecified cirrhosis of liver; R18.8 - Other ascites (4) Type 2 diabetes mellitus with hyperglycemia: Code(s): E11.65 - Type 2 diabetes mellitus with hyperglycemia Category: Medical Qualifiers: Diabetes mellitus superintendent container terminal insulin use: with usp use Qualified Code(s): E11.65 - Type 2 diabetes mellitus with hyperglycemia; Z79.4 - terminologist (current) use of insulin (5) Opioid dependence on agonist therapy: Code(s): F11.20 - Opioid dependence, uncomplicated Category: Medical (6) History of substance abuse: Code(s): F19.11 - Other psychoactive substance abuse, in remission Category: Medical (7) Bipolar disorder: Code(s): F31.9 - Bipolar disorder, unspecified Category: Medical Qualifiers: Active/Remission status: in remission of unspecified degree Qualified Code(s): F31.70 - Bipolar disorder, currently in remission, most recent episode unspecified (8) Moderate recurrent major depression: Comment: brianda avila [place] Code(s): F33.1 - Major depressive disorder, recurrent, moderate Category: Medical Plan Plan 1. Physical exam Colonoscopy done this year. Tetanus vaccine updated. Declines influenza vaccine. Continue diabetic eye exam yearly. 2. Hypertension The patient's blood pressure is noted to be elevated, which is attributed to non-adherence with amlodipine. A 90-day prescription for amlodipine 5 mg will be sent to the [facility] on [facility]. Refills for carvedilol 6.25 mg, furosemide 20 mg, and spironolactone will also be provided. 3. Diabetes Mellitus The patient's blood sugars run high, often around 500. Refills for metformin, Lantus, and Humalog will be provided. The patient reports his Lantus dose was changed, but the new dose is not specified. 4. Depression and bipolar disorder Continue follow-up with psychiatry. 5. History of substance abuse Continue Suboxone. Orders: Orders Vitamin B12 and Folate Today E53.8 - Deficiency of other specified B group vitamins Vitamin D 25-OH Total Today E55.9 - Vitamin D deficiency, unspecified Lipid Panel Today E78.5 - Hyperlipidemia, unspecified Microalbumin, Random (w Creat) Today R80.9 - Proteinuria, unspecified Complete Blood Count Auto Diff Today D64.9 - Anemia, unspecified IRON PROFILE Today D64.9 - Anemia, unspecified Comprehensive [place]. Panel Fast Today I10 - Essential (primary) hypertension Medications: Refilled amlodipine 5 mg PO DAILY 90 tabs 3RF 90 days apixaban (Eliquis) 5 mg PO BID 180 tabs 1RF 90 days I81 - Portal vein thrombosis cholecalciferol (vitamin D3) 50 mcg PO DAILY 90 caps 1RF 90 days E55.9 - Vitamin D deficiency, unspecified furosemide 20 mg See Protocol PO DAILY 90 tabs 1RF 90 days sucralfate 1 g (10 mL) PO TID 900 mL 0RF carvedilol 6.25 mg See Protocol PO BID 60 tabs 0RF spironolactone 50 mg See Protocol PO DAILY 180 tabs 1RF 90 days lidocaine 5% leave on most painful area for up to 12 hrs 1 patch topical DAILY 30 ea 1RF 30 days M22.2X1 - Patellofemoral disorders, right knee, M22.2X2 - Patellofemoral disorders, left knee
[2025-06-07 08:33] VITALS: BP 160/88; PULSE 95; TEMP 36.3; O2SAT 97; BMI 34.9
== END 2025-06-07 09:06 | disposition home or self-care (01) ==
LOC: HO.HMCH 08:07
PROVIDERS: PCP Internal Medicine; Visit Provider Internal Medicine
DX: Z00.00 Encounter for general adult medical examination without abnormal findings (principal); K76.6 Portal hypertension; K74.60 Unspecified cirrhosis of liver; E11.65 Type 2 diabetes mellitus with hyperglycemia; Z79.4 Long term (current) use of insulin; F11.20 Opioid dependence, uncomplicated; F19.11 Other psychoactive substance abuse, in remission; F33.1 Major depressive disorder, recurrent, moderate; R18.8 Other ascites; F31.70 Bipolar disorder, currently in remission, most recent episode unspecified

== ENCOUNTER → 2025-06-07 08:07 | Outpatient (BNVA) | payer OTHER, SELFPAY | PROVIDERS: PCP Internal Medicine; Visit Provider Internal Medicine | DX: Z00.00 Encounter for general adult medical examination without abnormal findings (principal); K76.6 Portal hypertension; K74.60 Unspecified cirrhosis of liver; R18.8 Other ascites; E11.65 Type 2 diabetes mellitus with hyperglycemia; F11.20 Opioid dependence, uncomplicated; F19.11 Other psychoactive substance abuse, in remission; F31.70 Bipolar disorder, currently in remission, most recent episode unspecified; F33.1 Major depressive disorder, recurrent, moderate; Z79.4 Long term (current) use of insulin | CPT/HCPCS: 96127; 99396 ==